=== PATIENT | male | born 1935 | race Caucasian/White ===

== ENCOUNTER → 2016-10-23 | Outpatient (CLI) | payer MEDICARE, OTHER ==
[~2016-10-23] MED LIST: ERYT.5%O EACH EYE; LASI20TA PO; LESC80TA PO; METO50TA PO; SULF1TAB47 PO; VITA400C58 OR; WARF2.5 PO
[2016-10-23 15:37] LABS: INTERNATIONAL NORMALIZED RATIO 2.5 RATIO; PROTHROMBIN TIME - PATIENT 29.1 SEC (9.8-11.6)
== END ==
LOC: PLAB 14:08
DX: I48.91 Unspecified atrial fibrillation (principal); Z79.01 Long term (current) use of anticoagulants
CPT/HCPCS: 36415; 85610

== ENCOUNTER → 2016-11-23 | Outpatient (CLI) | payer MEDICARE, OTHER ==
[2016-11-23 16:35] LABS: INTERNATIONAL NORMALIZED RATIO 1.6 RATIO; PROTHROMBIN TIME - PATIENT 18.1 SEC (9.8-11.6)
== END ==
LOC: PLAB 15:06
DX: I48.91 Unspecified atrial fibrillation (principal); Z79.01 Long term (current) use of anticoagulants
CPT/HCPCS: 36415; 85610

== ENCOUNTER → 2016-12-07 | Outpatient (CLI) | payer MEDICARE, OTHER ==
[2016-12-07 16:22] LABS: INTERNATIONAL NORMALIZED RATIO 1.5 RATIO; PROTHROMBIN TIME - PATIENT 16.4 SEC (9.8-11.6)
== END ==
LOC: PLAB 12:44
DX: I48.91 Unspecified atrial fibrillation (principal)
CPT/HCPCS: 36415; 85610

== ENCOUNTER → 2016-12-15 | Outpatient (CLI) | payer MEDICARE, OTHER ==
[2016-12-15 11:09] LABS: INTERNATIONAL NORMALIZED RATIO 2.1 RATIO; PROTHROMBIN TIME - PATIENT 23.4 SEC (9.8-11.6)
== END ==
LOC: PLAB 10:06
DX: I48.91 Unspecified atrial fibrillation (principal); Z79.01 Long term (current) use of anticoagulants
CPT/HCPCS: 36415; 85610

== ENCOUNTER → 2016-12-28 | Outpatient (CLI) | payer MEDICARE, OTHER ==
[2016-12-28 16:44] LABS: INTERNATIONAL NORMALIZED RATIO 3.4 RATIO; PROTHROMBIN TIME - PATIENT 39.4 SEC (9.8-11.6)
== END ==
LOC: PLAB 15:04
DX: I48.91 Unspecified atrial fibrillation (principal); Z79.01 Long term (current) use of anticoagulants
CPT/HCPCS: 36415; 85610

== ENCOUNTER → 2017-01-09 | Outpatient (CLI) | payer MEDICARE, OTHER ==
[2017-01-09 14:39] LABS: INTERNATIONAL NORMALIZED RATIO 2.6 RATIO; PROTHROMBIN TIME - PATIENT 30.4 SEC (9.8-11.6)
== END ==
LOC: PLAB 12:33
DX: I48.91 Unspecified atrial fibrillation (principal); Z79.01 Long term (current) use of anticoagulants
CPT/HCPCS: 36415; 85610

== ENCOUNTER → 2017-09-20 | Outpatient (CLI) | payer MEDICARE, OTHER ==
[2017-09-20 11:49] LABS: PROTHROMBIN TIME - PATIENT 79.3 SEC (9.8-11.6)
[2017-09-20 11:55] LABS: INTERNATIONAL NORMALIZED RATIO 7.9 RATIO
== END ==
LOC: PLAB 10:49
DX: I48.91 Unspecified atrial fibrillation (principal); Z79.01 Long term (current) use of anticoagulants
CPT/HCPCS: 36415; 85610

== ENCOUNTER → 2017-09-21 | Outpatient (CLI) | payer MEDICARE, OTHER ==
[2017-09-21 12:37] LABS: PROTHROMBIN TIME - PATIENT 78.8 SEC (9.8-11.6)
[2017-09-21 12:49] LABS: INTERNATIONAL NORMALIZED RATIO 7.9 RATIO
== END ==
LOC: PLAB 10:09
DX: I48.91 Unspecified atrial fibrillation (principal); Z79.01 Long term (current) use of anticoagulants
CPT/HCPCS: 36415; 85610

== ENCOUNTER → 2017-09-25 | Outpatient (CLI) | payer MEDICARE, OTHER ==
[2017-09-25 10:27] LABS: INTERNATIONAL NORMALIZED RATIO 1.3 RATIO; PROTHROMBIN TIME - PATIENT 12.7 SEC (9.8-11.6)
== END ==
LOC: PLAB 09:51
DX: I48.91 Unspecified atrial fibrillation (principal); Z79.01 Long term (current) use of anticoagulants
CPT/HCPCS: 36415; 85610

== ENCOUNTER → 2017-10-16 | Outpatient (CLI) | payer MEDICARE, OTHER ==
[2017-10-16 12:44] LABS: INTERNATIONAL NORMALIZED RATIO 3.9 RATIO; PROTHROMBIN TIME - PATIENT 38.8 SEC (9.8-11.6)
== END ==
LOC: PLAB 11:28
DX: I48.91 Unspecified atrial fibrillation (principal); Z79.01 Long term (current) use of anticoagulants
CPT/HCPCS: 36415; 85610

== ENCOUNTER → 2017-10-22 | Outpatient (CLI) | payer MEDICARE, OTHER ==
[2017-10-22 15:42] LABS: INTERNATIONAL NORMALIZED RATIO 1.4 RATIO; PROTHROMBIN TIME - PATIENT 14.3 SEC (9.8-11.6)
== END ==
LOC: PLAB 13:14
DX: I48.91 Unspecified atrial fibrillation (principal); Z79.01 Long term (current) use of anticoagulants
CPT/HCPCS: 36415; 85610

== ENCOUNTER → 2017-10-30 | Outpatient (CLI) | payer MEDICARE, OTHER ==
[2017-10-30 11:39] LABS: INTERNATIONAL NORMALIZED RATIO 3.3 RATIO; PROTHROMBIN TIME - PATIENT 33.2 SEC (9.8-11.6)
== END ==
LOC: PLAB 10:50
DX: I48.91 Unspecified atrial fibrillation (principal); Z79.01 Long term (current) use of anticoagulants
CPT/HCPCS: 36415; 85610

== ENCOUNTER 2017-11-15 10:27 | Emergency (ER) | payer MEDICARE, OTHER ==
[~2017-11-15] VITALS: Ht 170.2 cm; Wt 99.0 kg
[2017-11-15 10:28] VITALS: BP 107/65; PULSE 67; RESP 16; TEMP 98.4; O2SAT 96
[2017-11-15] MEDS ORDERED: BACL10TA PO (10:54)
[2017-11-15] MEDS ORDERED: WARF-23 PO (10:54)
[2017-11-15] MEDS ORDERED: WARF-18 PO (10:54)
[2017-11-15] MEDS ORDERED: FURO1TAB62 PO (10:54)
[2017-11-15] MEDS ORDERED: ASPI-147 PO (10:54)
--- NOTE | 2017-11-15 11:23 | RADRPT ---
EXAM DATE/TIME: 11/15/2017 11:14 [facility] COMPARISON: No previous studies available for comparison. INDICATIONS : Trauma. Fell 1 week ago. Laceration above left eye. RADIATION DOSE: 65.04 CTDIvol (mGy) MEDICAL HISTORY : Cardiovascular disease. Hypertension. SURGICAL HISTORY : None. ENCOUNTER: Initial ACUITY: 1 week PAIN SCALE: 0/10 LOCATION: cranial TECHNIQUE: Multiple contiguous axial images were obtained of the head. Using automated exposure control and adj ustment of the mA and/or kV according to patient size, radiation dose was kept as low as reasonably a chievable to obtain optimal diagnostic quality images. DICOM format image data is available electro nically for review and comparison. FINDINGS: CEREBRUM: The ventricles are normal for age. No evidence of midline shift, mass lesion, hemorrhage or acute in farction. No extra-axial fluid collections are seen. POSTERIOR FOSSA: The cerebellum and brainstem are intact. The 4th ventricle is midline. The cerebellopontine angle i s unremarkable. EXTRACRANIAL: The visualized portion of the orbits is intact. Mucosal thickening is noted involving the visualized portion of the left maxillary sinus. SKULL: The calvaria is intact. No evidence of skull fracture. CONCLUSION: No acute intracranial abnormality. Mucosal thickening involving the left maxillary sinus. Jai Durham MD on November 15, 2017 at 11:19 Board Certified Radiologist. This report was verified electronically.
--- NOTE | 2017-11-15 12:00 | RADRPT ---
EXAM DATE/TIME: 11/15/2017 11:23 [facility] COMPARISON: No previous studies available for comparison. INDICATIONS : Left hip pain post fall last week. Patient has large painful "lump" on lateral aspect of hip. MEDICAL HISTORY : Hypercholesterolemia. Hypertension SURGICAL HISTORY : cardioversion for A-fib. ENCOUNTER: Initial ACUITY: 1 week PAIN SCORE: 10/10 LOCATION: Left lateral hip FINDINGS: Examination of the left hip was performed with AP pelvis. The primary and secondary trabecular patte rn of the femoral neck is intact. The hip joint is of normal width without significant sclerosis or bony hypertrophy. The acetabulum is grossly intact. CONCLUSION: No acute fracture or dislocation. Jai Durham MD on November 15, 2017 at 11:56 Board Certified Radiologist. This report was verified electronically.
--- NOTE | 2017-11-15 12:07 | RADRPT ---
EXAM DATE/TIME: 11/15/2017 11:23 [facility] COMPARISON: No previous studies available for comparison. INDICATIONS : Left foot pain, bruising, post fall last week. MEDICAL HISTORY : Hypercholesterolemia. Hypertension SURGICAL HISTORY : Cardioversion for a-fib. ENCOUNTER: Initial ACUITY: 1 week PAIN SCORE: 9/10 LOCATION: Left foot FINDINGS: Three view examination of the left foot demonstrates no soft tissue swelling, dislocation, or fractur e. The tarsal bones appear intact. The interphalangeal and metatarsophalangeal joints are intact. The calcaneus is intact. Bony mineralization is normal. CONCLUSION: No evidence of recent bony injury. Dionicio Gruber MD on November 15, 2017 at 12:03 Board Certified Radiologist. This report was verified electronically.
--- NOTE | 2017-11-15 12:23 | PD ---
HPI Chief Complaint: Fall Time Seen by Provider: 10:40 Travel History International Travel<30 days: No Contact w/Intl Traveler<30days: No Traveled to known affect area: No History of Present Illness HPI This is a 82-year-old male here for evaluation of swelling and bruising to his left hip and left foot times one week. Patient reports approximately one week ago he had a mechanical fall in his bathroom falling onto his left side. There was no loss of consciousness. Patient is anticoagulated on Coumadin. The area became bruised and he has swelling to his left hip since the fall. At the insistence of his he came in for evaluation today. She reports he has mild pain at the site of swelling of the left hip. He is ambulatory and has been playing golf since the injury. He denies headache, visual changes, neck pain, chest pain, but is of breath, abdominal pain, paresthesia or weakness of the extremities. Symptom severity is mild. Aggravated by palpation of the area and relieved with rest. PFSH Past Medical History Hx Anticoagulant Therapy: Yes (COUMADIN) Heart Rhythm Problems: Yes (PAST A-FIB) Cardiovascular Problems: Yes (PT HAD CARDOVERSON FOR AFIB) High Cholesterol: Yes Diminished Hearing: Yes ("slightly hard of hearing.") Hypertension: Yes Neurologic: Yes (R TRIGEMINAL NEURALGIA) Immunizations Current: Yes Tetanus Vaccination: < 5 Years Influenza Vaccination: Yes Past Surgical History Genitourinary Surgery: Yes (removing kidney stone) Other Surgery: Yes (gamma knife x2 for trigeminal neuralgia) Social History Alcohol Use: Yes (few beers daily) Tobacco Use: No Substance Use: No Allergies-Medications (Allergen,Severity, Reaction): Coded Allergies: amiodarone (Verified Allergy, Intermediate, BLACK LUNGS, 11/15/17) Reported Meds & Prescriptions Reported Meds & Active Scripts Active Reported Ecotrin Low Strength (Aspirin) 81 Mg Tabdr 81 Mg PO DAILY Lasix (Furosemide) 20 Mg Tab 5 Mg PO BID Baclofen 10 Mg Tab 10 Mg PO DAILY Warfarin 2.5 Mg Tab 2.5 Mg PO SUNDAY Warfarin 5 Mg Tab 5 Mg PO DAILY Review of Systems Except as stated in HPI: all other systems reviewed are Neg Physical Exam Narrative GENERAL: Alert and well-appearing 82-year-old male SKIN: Warm and dry. HEAD: Normocephalic.1.5 CM healing laceration to the left forehead EYES: Pupils equal, round, reactive to light. EOMs intact. No injection or drainage. NECK: Supple, trachea midline. No line spine tenderness CARDIOVASCULAR: Regular rate and rhythm without murmurs, gallops, or rubs. No chest wall tenderness RESPIRATORY: Breath sounds equal bilaterally. No accessory muscle use. GASTROINTESTINAL: Abdomen soft, non-tender, nondistended. No rebound or guarding. MUSCULOSKELETAL: No cyanosis. Left lower extremity: Notable swelling and ecchymosis to the left lateral hip this is consistent with a hematoma. Ecchymosis over the entire dorsal aspect of the left foot. Patient is able to flex and externally rotate the hip. Maintains normal range of motion of the knee and ankle. 2+ distal pulses. No sensation. Brisk cap refill. BACK: Nontender cervical, thoracic, lumbar spine. Without obvious deformity. No CVA tenderness. Data Data Last Documented VS Vital Signs Date Time Temp Pulse Resp B/P (MAP) Pulse Ox O2 Delivery O2 Flow Rate FiO2 11/15/17 10:28 98.4 67 16 107/65 (79) [address] Brain W/O Iv Contrast(Rout) (11/15/17 ) Foot, Complete ([id number]) (11/15/17 ) Hip, Uni(4+Vws) W Ap Pelvis (11/15/17 ) MDM Medical Decision Making Medical Screen Exam Complete: Yes Emergency Medical Condition: Yes Differential Diagnosis Hip fracture, metatarsal fracture, hematoma, contusion, ICH Narrative Course This is an 82-year-old male here for evaluation at the insistence of his for fall he sustained approximately a week ago in his bathroom. He fell onto his left side. There was no loss of consciousness. He has what appears to be a hematoma to the left lateral hip. He is ambulatory without difficulty. The extremity is neurovascularly intact. He did sustain a small laceration to the left forehead. Patient is anticoagulated therefore CT of the head was obtained. CT of the brain: No intracranial abnormality X-ray left hip: No fracture X-ray left foot: No fracture All findings discussed with family. Treatment of hematoma discussed with patient and family. He was encouraged to follow up with his primary doctor. Patient and family verbalized understanding and agree to plan Diagnosis Primary Impression: Hematoma Additional Impressions: Contusion Qualified Codes: S80.12XA - Contusion of left lower leg, initial encounter Head injury Qualified Codes: S09.90XA - Unspecified injury of head, initial encounter Referrals: Primary Care Physician Additional Instructions: Apply warm compresses to the hematoma several times per day. Tylenol as needed for pain. Follow-up with her primary doctor for recheck. Return if he developed new or worsening symptoms such as fever, increasing pain , severe headache, repeated vomiting Disposition: 01 DISCHARGE HOME Condition: Stable Billie Gayle Nov 15, 2017 12:23
== END 2017-11-15 12:36 | disposition home or self-care (01) ==
LOC: PHED 10:27
DX: T14.8XXA Other injury of unspecified body region, initial encounter (principal); S80.12XA Contusion of left lower leg, initial encounter; S09.90XA Unspecified injury of head, initial encounter; I48.91 Unspecified atrial fibrillation; E78.00 Pure hypercholesterolemia, unspecified; I10 Essential (primary) hypertension; Z79.01 Long term (current) use of anticoagulants; Z88.8 Allergy status to other drugs, medicaments and biological substances; W18.30XA Fall on same level, unspecified, initial encounter; Y92.89 Other specified places as the place of occurrence of the external cause
CPT/HCPCS: 70450; 73503; 73630; 99284

== ENCOUNTER → 2017-11-19 | Outpatient (CLI) | payer MEDICARE, OTHER ==
[~2017-11-19] MED LIST changes: +ASPI-147 PO; +BACL10TA PO; -ERYT.5%O EACH EYE; +FURO1TAB62 PO; -LASI20TA PO; -LESC80TA PO; -METO50TA PO; -SULF1TAB47 PO; -VITA400C58 OR; +WARF-18 PO; +WARF-23 PO; -WARF2.5 PO
[2017-11-19 14:33] LABS: INTERNATIONAL NORMALIZED RATIO 2.1 RATIO; PROTHROMBIN TIME - PATIENT 20.9 SEC (9.8-11.6)
== END ==
LOC: PLAB 12:15
DX: I48.91 Unspecified atrial fibrillation (principal); Z79.01 Long term (current) use of anticoagulants
CPT/HCPCS: 36415; 85610

== ENCOUNTER → 2017-12-07 | Outpatient (CLI) | payer MEDICARE, OTHER ==
[2017-12-07 12:54] LABS: INTERNATIONAL NORMALIZED RATIO 4.2 RATIO; PROTHROMBIN TIME - PATIENT 41.7 SEC (9.8-11.6)
== END ==
LOC: PLAB 11:17
DX: I48.91 Unspecified atrial fibrillation (principal); Z79.01 Long term (current) use of anticoagulants
CPT/HCPCS: 36415; 85610

== ENCOUNTER → 2017-12-14 | Outpatient (CLI) | payer MEDICARE, OTHER ==
[2017-12-14 10:22] LABS: INTERNATIONAL NORMALIZED RATIO 2.2 RATIO; PROTHROMBIN TIME - PATIENT 22.1 SEC (9.8-11.6)
== END ==
LOC: PLAB 09:47
DX: I48.91 Unspecified atrial fibrillation (principal); Z79.01 Long term (current) use of anticoagulants
CPT/HCPCS: 36415; 85610

== ENCOUNTER → 2017-12-19 | Outpatient (CLI) | payer MEDICARE, OTHER ==
[2017-12-19 16:25] LABS: INTERNATIONAL NORMALIZED RATIO 2.3 RATIO; PROTHROMBIN TIME - PATIENT 23.4 SEC (9.8-11.6)
== END ==
LOC: PLAB 14:23
DX: I48.91 Unspecified atrial fibrillation (principal); Z79.01 Long term (current) use of anticoagulants
CPT/HCPCS: 85610

== ENCOUNTER → 2018-01-18 | Outpatient (CLI) | payer MEDICARE, OTHER ==
[2018-01-18 11:25] LABS: INTERNATIONAL NORMALIZED RATIO 2.6 RATIO; PROTHROMBIN TIME - PATIENT 26.6 SEC (9.8-11.6)
== END ==
LOC: PLAB 10:24
DX: I48.91 Unspecified atrial fibrillation (principal); Z79.01 Long term (current) use of anticoagulants
CPT/HCPCS: 36415; 85610

== ENCOUNTER 2018-08-25 09:38 | Inpatient (IN) ==
[2018-08-25] MEDS ORDERED: Azithromycin Inj 500 MG in Sodium Chlor 0.9% Inj 250 ML IV.SIG ONE ×2 (09:56→14:11)
--- NOTE | 2018-08-25 10:03 | ED ---
HPI General Chief Complaint: Shortness of Breath/Dyspnea Stated Complaint: SOB Time Seen by Provider: 08/25/18 09:44 Source: patient Mode of arrival: EMS Limitations: no limitations History of Present Illness MD Complaint: Reports shortness of breath Onset (ago): day(s) (4) Severity: severe Consistency/Duration: constant and progressively worsening Relieving factors: nothing Exacerbating factors: nothing Known history of: Reports COPD and other (AF) Associated symptoms: Reports other (chills); Denies fever and sputum production Treatment prior to arrival: Reports bronchodilator and other (Solu-Medrol and IV lidocaine (for elevated HR and run of VT)) Related Data Home oxygen amount: none Home Medications Medication Instructions Recorded Confirmed Unable to Obtain Home Meds 08/25/18 08/25/18 Allergies Allergy/AdvReac Type Severity Reaction Status Date / Time amiodarone Allergy Intermediate BLACK LUNGS Verified 11/15/17 10:35 Review of Systems ROS: all other systems reviewed are negative [facility] Medical History Medical History Atrial fibrillation (Chronic) COPD (chronic obstructive pulmonary disease) (Chronic) Hypertension (Chronic) Social History Social History Substance History: No History of Abuse Smoking Status: Former smoker How Often Do You Have a Drink Containing Alcohol: 2 to 3 times a week Recent Travel in [facility] within the Last 8 Weeks: No Recent Out of Country Travel within the Last 8 Weeks: No Exam Const General: cooperative, healthy appearing, comfortable, well developed and well groomed Orientation: alert, awake and oriented x3 HENMT Head: normal to inspection, normocephalic and atraumatic Eyes Alignment and Position: alignment normal Conjunctivae: conjunctivae normal Sclera: sclerae normal EOM: EOM intact bilaterally Neck Neck: normal visual inspection and full ROM Chest Chest: normal inspection of the chest Resp Effort & Inspection: normal respiratory effort and able to speak in complete sentences Auscultation: lung sounds not diminished, no wheezes and other (We are currently only able to auscultate anteriorly because of medical interventions happening simultaneously. No wheezing is heard. His lungs have good air movement.) Cardio Rate: tachycardic Rhythm: abnormal rhythm GI Inspection: normal to inspection Palpation: soft Back/Spine/Pelvis Cervical Spine: cervical ROM normal Thoracic/Lumbar Spine: thoraco-lumbar ROM normal Skin General: no rashes or lesions noted and turgor normal Neuro General: alert, awake, oriented x3, moves all extremities and CN's II-XI intact bilaterally Extrem General: normal to inspection and full ROM Psych Appearance: grossly normal Mental Status: mental status grossly normal Speech and Movement: speech and movement normal Mood: congruent mood Affect: normal affect Attitude: cooperative Thought Process: normal Thought Content: normal Judgment: judgment good Course Consultations Consultation #1: Dr. Miguel has requested that I transport the patient to [facility] for intensive care. Time: 11:01 Initial Documented Vital Signs Temperature 98.4 F 08/25/18 09:40 Pulse Rate 150 H 08/25/18 09:40 Respiratory Rate 28 H 08/25/18 09:40 Blood Pressure 187/101 H 08/25/18 09:40 Pulse Oximetry 92 L 08/25/18 09:40 Last Documented Vital Signs Temperature 98.4 F 08/25/18 09:40 Pulse Rate 107 H 08/25/18 10:29 Respiratory Rate 22 08/25/18 10:29 Blood Pressure 127/63 08/25/18 10:29 Pulse Oximetry 95 08/25/18 10:29 Critical Care Time Critical Care Time: Yes Total Critical Care Time: 45 Attestation: Time to perform other separately billable procedures was not included in the critical care time. My time did not include minutes spent treating any other patients simultaneously or on activities that did not directly contribute to the patient's treatment. The services I provided to this patient were to treat and/or prevent clinically significant deterioration due to respiratory distress and tachycardia I provided critical care services requiring my management, as noted below: Chart data review, documentation time, medication orders and management, vital sign assessments/reviewing monitor data, ordering and reviewing lab tests, ordering and interpreting/reviewing x-rays and diagnostic studies, care of the patient and discussion of the patient with the admitting physicians Medical Decision Making MDM Narrative Medical decision making narrative: This patient presents to us via [facility] with acute dyspnea. He states that he started feeling poorly approximately 4 days ago and that he has been getting progressively worse since that time. He states that he has been having chills. He has felt this way before when he had pneumonia. He denies productive cough. He was treated by [facility] with a DuoNeb and Solu-Medrol. He was also given IV lidocaine because of a run of V. tach. Shortly after arrival here, the patient was placed on BiPAP. Workup for dyspnea was initiated. After seeing the chest x-ray, IV Rocephin and IV Zithromax were ordered. Septic workup is in process. He meets sepsis and severe sepsis criteria. Fluid at 30 cc/kg has been ordered. Medical Screen Exam Complete: Yes Emergency Medical Condition: Yes Differential Diagnosis Differential Diagnosis: Differential diagnosis of dyspnea includes but is not limited to congestive heart failure, pneumonia, wheezing, pneumothorax, pulmonary embolism Medical Records Medical records reviewed: Yes I reviewed the patient's medical records. Medical history includes hypertension, hyperlipidemia, COPD and atrial fibrillation Lab Data Lab results reviewed: Yes I reviewed the patient's lab results. Result diagrams: 08/25/18 09:45 08/25/18 09:45 Lab Results 08/25/18 08/25/18 08/25/18 Range/Units 09:45 09:45 09:45 CBC w Diff Auto diff final WBC 18.6 H (4.0-11.0) th/mm3 RBC 4.47 L (4.50-5.90) mil/mm3 Hgb 14.0 (13.0-17.0) gm/dL Hct 42.4 (39.0-51.0) % MCV 94.7 (80.0-100.0) fL MCH 31.3 (27.0-34.0) pg MCHC 33.1 (32.0-36.0) % RDW 14.5 (11.6-17.2) % Plt Count 208 (150-450) th/mm3 MPV 8.9 (7.0-11.0) fL Neut % (Auto) 93.3 H (16.0-70.0) % Lymph % (Auto) 1.7 L (9.0-44.0) % Dare % (Auto) 1.8 (0.0-8.0) % Eos % (Auto) 0.8 (0.0-4.0) % Baso % (Auto) 2.4 H (0.0-2.0) % Neut # (Auto) 17.5 H (1.8-7.7) th/mm3 Lymph # (Auto) 0.3 L (1.0-4.8) th/mm3 Dare # (Auto) 0.3 (0.0-0.9) th/mm3 Eos # (Auto) 0.1 (0.0-0.4) th/mm3 Baso # (Auto) 0.4 H (0.0-0.2) th/mm3 WBC Differential . Differential Comment . PT (9.8-11.6) sec INR Ratio Puncture Site Patient Temperature O2 Saturation (90-100) % ABG pH (7.380-7.420) ABG pCO2 (38-42) mmHg ABG pO2 (61-120) mmHg ABG HCO3 (22-26) mmol/L ABG O2 Content (12.0-20.0) Vol % ABG Base Excess (-2-2) mmol/L ABG Methemoglobin (0-2) % Braxton Test Hemoglobin (12.0-16.0) G/DL Carboxyhemoglobin (0-4) % O2 Delivery Device Vent Setting Inspired O2 % Critical Value Sodium 134 L (136-145) meq/L Potassium 3.8 (3.5-5.1) meq/L Chloride 97 L (98-107) meq/L Carbon Dioxide 24.8 (21.0-32.0) meq/L Anion Gap 12 (5-15) meq/L BUN 40 H (7-18) mg/dL Creatinine 1.80 H (0.60-1.30) mg/dL Estimated GFR 36 L (>89) mL/min POC Glucose (68-110) mg/dl Random Glucose 214 H (74-106) mg/dL Lactic Acid 5.1 H* (0.4-2.0) mmol/L Calcium 9.4 (8.5-10.1) mg/dL Magnesium 2.3 (1.5-2.5) mg/dL Total Bilirubin 1.2 H (0.2-1.0) mg/dL AST 32 (15-37) U/L ALT 26 (12-78) U/L Alkaline Phosphatase 86 (45-117) U/L Total Protein 7.0 (6.4-8.2) g/dL Albumin 2.5 L (3.4-5.0) g/dL 08/25/18 08/25/18 08/25/18 Range/Units 09:45 09:58 10:00 CBC w Diff WBC (4.0-11.0) th/mm3 RBC (4.50-5.90) mil/mm3 Hgb (13.0-17.0) gm/dL Hct (39.0-51.0) % MCV (80.0-100.0) fL MCH (27.0-34.0) pg MCHC (32.0-36.0) % RDW (11.6-17.2) % Plt Count (150-450) th/mm3 MPV (7.0-11.0) fL Neut % (Auto) (16.0-70.0) % Lymph % (Auto) (9.0-44.0) % Dare % (Auto) (0.0-8.0) % Eos % (Auto) (0.0-4.0) % Baso % (Auto) (0.0-2.0) % Neut # (Auto) (1.8-7.7) th/mm3 Lymph # (Auto) (1.0-4.8) th/mm3 Dare # (Auto) (0.0-0.9) th/mm3 Eos # (Auto) (0.0-0.4) th/mm3 Baso # (Auto) (0.0-0.2) th/mm3 WBC Differential Differential Comment PT 12.7 H (9.8-11.6) sec INR 1.3 Ratio Puncture Site Right radial Patient Temperature 98.6 O2 Saturation 95 (90-100) % ABG pH 7.36 L (7.380-7.420) ABG pCO2 44 H (38-42) mmHg ABG pO2 94 (61-120) mmHg ABG HCO3 25 (22-26) mmol/L ABG O2 Content 18.5 (12.0-20.0) Vol % ABG Base Excess -0.2 (-2-2) mmol/L ABG Methemoglobin 1.3 (0-2) % Braxton Test Present Hemoglobin 13.9 (12.0-16.0) G/DL Carboxyhemoglobin 1.8 (0-4) % O2 Delivery Device Bipap Vent Setting Ipap 18/epap6 Inspired O2 65 % Critical Value No Sodium (136-145) meq/L Potassium (3.5-5.1) meq/L Chloride (98-107) meq/L Carbon Dioxide (21.0-32.0) meq/L Anion Gap (5-15) meq/L BUN (7-18) mg/dL Creatinine (0.60-1.30) mg/dL Estimated GFR (>89) mL/min POC Glucose 195 H (68-110) mg/dl Random Glucose (74-106) mg/dL Lactic Acid (0.4-2.0) mmol/L Calcium (8.5-10.1) mg/dL Magnesium (1.5-2.5) mg/dL Total Bilirubin (0.2-1.0) mg/dL AST (15-37) U/L ALT (12-78) U/L Alkaline Phosphatase (45-117) U/L Total Protein (6.4-8.2) g/dL Albumin (3.4-5.0) g/dL Imaging Data Attestation: I personally reviewed and interpreted this imaging study as follows : My impression: Infiltrate mainly in the right middle lobe Radiologist's impression: Chest X-Ray 08/25/18 09:44 CONCLUSION: Extensive bilateral infiltrates, right worse than left ECG Data EKG Prior to Arrival: No Attestation: I personally reviewed and interpreted this ECG as follows: (EKG shows atrial fibrillation with a rate of about 130. T wave changes.) Discharge Plan Discharge Disposition Patient Disposition: 30 Still Patient Discharge Details Diagnosis: Severe sepsis, Pneumonia Physicians Team ED Provider: Abbi Odell Primary Care Provider: UNKNOWN, Rxs /Orders / Referrals /Forms Prescriptions: No Action Unable to Obtain Home Meds RF: 0 Status ED Status: With Doctor
[2018-08-25 10:04] LABS: White Blood Count 18.6 th/mm3 (4.0-11.0)
[2018-08-25 10:05] LABS: Baso # (Auto) 0.4 th/mm3 (0.0-0.2); Baso % (Auto) 2.4 % (0.0-2.0); Eos # (Auto) 0.1 th/mm3 (0.0-0.4); Eos % (Auto) 0.8 % (0.0-4.0); Hematocrit 42.4 % (39.0-51.0); Lymph # (Auto) 0.3 th/mm3 (1.0-4.8); Lymph % (Auto) 1.7 % (9.0-44.0); Mean Corpuscular HGB Conc 33.1 % (32.0-36.0); Mean Corpuscular Hemoglobin 31.3 pg (27.0-34.0); Mean Corpuscular Volume 94.7 fL (80.0-100.0); Mean Platelet Volume 8.9 fL (7.0-11.0); Mono # (Auto) 0.3 th/mm3 (0.0-0.9); Mono % (Auto) 1.8 % (0.0-8.0); Neut # (Auto) 17.5 th/mm3 (1.8-7.7); Neut % (Auto) 93.3 % (16.0-70.0); Platelet Count 208 th/mm3 (150-450); Red Blood Count 4.47 mil/mm3 (4.50-5.90); Red Cell Distribution Width 14.5 % (11.6-17.2)
[2018-08-25 10:08] LABS: ABG Base Excess -0.2 mmol/L (-2-2); ABG PCO2 44 mmHg (38-42); ABG PO2 94 mmHg (61-120)
[2018-08-25 10:12] LABS: Chloride 97 meq/L (98-107); Potassium 3.8 meq/L (3.5-5.1); Sodium 134 meq/L (136-145)
[2018-08-25 10:15] LABS: Calcium 9.4 mg/dL (8.5-10.1)
[2018-08-25 10:16] LABS: Albumin 2.5 g/dL (3.4-5.0); Anion Gap 12 meq/L (5-15); Blood Urea Nitrogen 40 mg/dL (7-18); Carbon Dioxide 24.8 meq/L (21.0-32.0); Glucose,Random 214 mg/dL (74-106); Magnesium 2.3 mg/dL (1.5-2.5)
[2018-08-25 10:18] LABS: Alanine Aminotransferase 26 U/L (12-78)
[2018-08-25 10:19] LABS: Aspartate Aminotransferase 32 U/L (15-37); Glomerular Filtration Rate 36 mL/min (>89)
[2018-08-25 10:21] LABS: Alkaline Phosphatase 86 U/L (45-117)
--- NOTE | 2018-08-25 10:21 | XR ---
EXAM DATE: 08/25/2018 10:01 AM EST AGE/SEX: 83 years / Male INDICATIONS: Short of breath CLINICAL DATA: This is the patient's initial encounter. Patient reports that signs and symptoms have been present for 1 day and indicates a pain score of Nonresponsive. MEDICAL/SURGICAL HISTORY: . Cardiovascular disease. Hypertension, COPD None. COMPARISON: No prior exams available for comparison. FINDINGS: Diffuse interstitial infiltrate bilaterally with moderately confluent alveolar infiltrate in portions of the right lung. Likely small effusions. Heart size is borderline. CONCLUSION: Extensive bilateral infiltrates, right worse than left Electronically signed by: Ed Carter MD 08/25/2018 10:19 AM EST
[2018-08-25 10:34] LABS: INR 1.3 Ratio; Prothrombin Time 12.7 sec (9.8-11.6)
[2018-08-25] MEDS: Sod Chloride 0.9% Inj 1,000 ML IV.SIG SCH ×3 (10:56→12:05)
[2018-08-25] MEDS ORDERED: Bisacodyl 10 MG Supp RECTAL PRN (11:01)
[2018-08-25] MEDS: Sod Chloride 0.9% Inj 1,000 ML IV.CONT SCH (13:15)
[2018-08-25] MEDS ORDERED: Etomidate Inj 40 MG/20 ML Vial IV.PUSH ONE (13:28)
[2018-08-25] MEDS: Propofol 1000 mg/100 ml Inj 1,000 MG/100 ML BOTTLE IV.CONT PRN ×2 (14:00→19:16)
[2018-08-25] MEDS: fentaNYL 10 mcg/mL Premix Drip 2,500 MCG/250 ML BAG IV.SIG PRN (14:00)
[2018-08-25] MEDS ORDERED: Vancomycin Consult Pharmacy OTHER PRN (14:11)
--- NOTE | 2018-08-25 14:17 | P.PCN ---
Date of procedure: 08/25/18 Pre-op diagnosis: Acute respiratory failure Post-op diagnosis: same Procedure: DATE: 08/25/2018 PROCEDURE: Orotracheal intubation INDICATION: Pneumonia/respiratory failure acute DETAILS OF PROCEDURE The patient was placed in optimal position and preoxygenated with 100% FiO2 via bag valve mask. At the start oxygen saturation was 98 %. The patient was administered 20 mg etomidate IV and 50 mg rocuronium IV. I entered the oropharynx with a size 4 laryngoscope blade and obtained a grade 2 view of the airway. On single attempt a size 8.0 cuffed endotracheal tube was passed through the vocal cords. Correct tube location was confirmed with end tidal CO2 detector and by auscultating over bilateral lung joel. The endotracheal tube was secured with adhesive tape at a depth of 24 cm at the lips. The patient was connected to the ventilator. The patient tolerated the procedure well without any apparent complications. Oxygen saturations were maintained greater than 95% all times. STAT chest x-ray pending at time of dictation.
--- NOTE | 2018-08-25 14:18 | P.PCN ---
Date of procedure: 08/25/18 Pre-op diagnosis: Acute respiratory failure/poor IV access Post-op diagnosis: same Procedure: DATE: 08/25/2018 CENTRAL LINE PLACEMENT: Left internal jugular vein. Ultrasound-guided INDICATION: Central venous access CONSENT Informed consent for procedure was obtained from competent patient prior to intubation. DESCRIPTION OF THE PROCEDURE The patient was placed in supine position. The skin was cleansed with Chloraprep. Additional barrier precautions included large sterile drape, sterile gloves, sterile gown, face mask, and hat. 1 % lidocaine was used for local anesthesia. Under direct ultrasound guidance and on initial attempt, the vein was accessed with an introducer needle. The guide wire was advanced and the tract was dilated. Using Seldinger technique a 7 Turkish 20 cm antimicrobial coated triple-lumen catheter was advanced to a depth of 20 centimeters. The guide wire was removed. All ports had good return of dark venous blood and flushed easily with saline. The central line was secured with 2.0 silk. A sterile dressing with antibiotic disc was applied. StatLock did not adhere to skin ESTIMATED BLOOD LOSS: Minimal COMPLICATIONS: No apparent complications. STAT chest x-ray pending at time of dictation
--- NOTE | 2018-08-25 14:27 | P.HPCC ---
History of Present Illness Service: Critical care medicine Primary Care Physician: UNKNOWN Chief Complaint: Shortness of breath History of Present Illness: This is an 83-year-old male. Date of admission 08/25/2018. Past medical includes atrial fibrillation with history of cardioversion, chronic apixaban use, hypertension, hyperlipidemia, trigeminal neuralgia/hard of hearing : Bilateral hearing aids. For the past 4 days, patient been increasing short of breath increased malaise. Denies any sick contacts or recent travels. Unknown influenza status. Patient is to [facility] with worsening shortness of breath. Complains of pleuritic and musculoskeletal chest pain. Patient also has a prior history of tobacco abuse times 50 years quit 15 years ago. Patient called EMS for evaluation due to acute shortness of breath. Upon arrival, patient was noted to be in a rapid heart rate in the 150s. Patient was given acute bronchodilator therapy and started on a lidocaine drip for possible V. tach. Patient was transported to [facility] for further evaluation treatment. Upon arrival, patient was noted to be in A. fib with RVR. Chest x-ray revealed bilateral infiltrates right greater than left. Patient was placed on BiPAP therapy with some improvement. Patient received ceftriaxone and azithromycin. 3 L normal saline. Patient remained somewhat hypotensive. Patient a lactate of 5.1. Troponin 0 0.27. Patient was transported to [facility]. On arrival, patient increasingly short of breath. Required intubation with central line placement and arterial line placement. - Diagnosis (1) Acute respiratory failure with hypoxia and hypercapnia (2) Hyponatremia (3) Lactic acidosis (4) Atrial fibrillation with rapid ventricular response (5) Acute kidney injury (6) Chronic steroid use (7) Hypertension (8) Hyperlipidemia (9) Hard of hearing (10) Trigeminal neuralgia (11) Chronic anticoagulation (12) Leukocytosis (13) Elevated troponin (14) Hypoalbuminemia Inpatient Certification: I certify that the inpatient services were ordered in accordance with Medicare regulations governing the order. This includes certification that hospital inpatient services are reasonable and necessary and in the case of services not specified as inpatient-only under 42 CFR 419.22(n), that they are appropriately provided as inpatient services in accordance to with the 2-midnight benchmark under 43 CFR 412.3(e) Estimated Total Length of Stay (Days): 5 Plans for Post Hospital Care: Not yet determined Review of Systems unobtainable due to endotracheal tube PMFSH - History History Provided By: Patient - Medical History Medical History: Medical History (Last Updated 08/25/18 @ 14:25 by Ford Miguel MD) Hard of hearing Hyperlipidemia Atrial fibrillation COPD (chronic obstructive pulmonary disease) Hypertension - Surgical History Surgical History: Surgical History (Last Updated 08/25/18 @ 14:26 by Ford Miguel MD) Status post gamma knife treatment (Acute) History of lithotripsy Hx of total knee arthroplasty - Family History Family History: Family History (Last Updated 08/25/18 @ 14:26 by Ford Miguel MD) Other No pertinent family history - Social History I have reviewed the patient's Social History: Yes - Tobacco History Second Hand Smoke Exposure: No Tobacco Use In Past 30 Days: No Smoking Status: Former smoker Tobacco Type: Cigarettes Years Smoked: 50 - Alcohol History How Often Do You Have a Drink Containing Alcohol: 2 to 3 times a week - Substance Use History Substance History: No History of Abuse - Travel History Recent Travel in the [place] Within the Last 8 Weeks: No Recent Travel Out of the Country Within the Last 8 Weeks: No - Immunization History Tetanus Immunization: Unsure Hx Influenza Vaccine This Season: Unable to Assess Medications and Allergies Active Medications: Active Medications Acetaminophen (Tylenol) 650 mg PO Q6H PRN PRN Reason: PAIN 1-10 AND/OR FEVER >101F Al Hydroxide/Mg Hydroxide (Milk Of Magnjuwan Liq) 30 ml PO Q12H PRN PRN Reason: Mild Constipation Albuterol (Albuterol Neb (Prn)) 2.5 mg NEB Q2HR NEB PRN PRN Reason: SHORTNESS OF BREATH/WHEEZING Albuterol (Duoneb Neb (Cherry)) 1 ampul NEB Q4HR NEB CHERRY Last Admin: 08/25/18 11:28 Dose: 1 ampul Apixaban (Eliquis) 5 mg PO BID [facility] Artificial Tears (Tears Naturale Opth Drops) 1 drop EACH EYE Q8H [facility] Bisacodyl (Dulcolax Supp) 10 mg RECTAL DAILY PRN PRN Reason: SEVERE CONSITIPATION Chlorhexidine Gluconate (Chlorhexidine 2% Cloth) 3 pack TOPICAL DAILY@0400 [facility] Stop: 08/31/18 03:59 Chlorhexidine Gluconate (Chlorhexidine 2% Cloth) 3 pack TOPICAL DAILY@0400 PRN PRN Reason: Extra cloth needed Stop: 08/31/18 03:59 Chlorhexidine Gluconate (Peridex 0.12% Oral Kit) 15 ml OROPHARYNG BID@0800, 2000 [facility] Fluticasone/Vilanterol (Breo Ellipta 200/25 Mcg Inh) puff INH DAILY [facility] Sodium Chloride (Ns Inj) 1,000 mls @ 84 mls/hr IV.CONT .[id number] [facility] Fentanyl (Fentanyl 10 Mcg/Ml Premix Drip) 2,500 mcg in 250 mls @ 5 mls/hr IV.SIG TITRATE PRN; Protocol PRN Reason: Per Protocol Propofol (Diprivan 1000 Mg/100 Ml Inj) 1,000 mg in 100 mls @ 2.88 mls/hr IV.CONT TITRATE PRN; Protocol PRN Reason: Per Protocol Phenylephrine HCl 160 mg/ (Sodium Chloride) 500 mls @ 7.5 mls/hr IV.CONT TITRATE PRN; Protocol PRN Reason: See protol Azithromycin 500 mg/ Sodium (Chloride) 250 mls @ 250 mls/hr IV.SIG ONCE ONE Stop: 08/25/18 15:10 Piperacillin/Tazobactam/Dextrose (Zosyn 3.375 Gm Premix) 50 mls @ 100 mls/hr IV.SIG Q6H [facility] Lactulose (Lactulose Liq) 30 ml PO DAILY PRN PRN Reason: SEVERE CONSITIPATION Methylprednisolone Sodium Succinate (Solumedrol Inj) 40 mg IV.PUSH Q8HR [facility] Metoprolol Tartrate (Lopressor) 25 mg PO BID [facility] Miscellaneous Medication () 1 each OROPHARYNG 0000,0400,1200,1600 [facility] Ondansetron HCl (Zofran Inj) 4 mg IV.PUSH Q6H PRN PRN Reason: NAUSEA OR VOMITING Pantoprazole Sodium (Protonix Inj) 40 mg IV.PUSH DAILY [facility] Pharmacy Profile Note (Vancomycin Consult Pharmacy) 1 each OTHER UNSCH PRN PRN Reason: Pharmacy to dose Senna/Docusate Sodium (Marisa-Colace) 1 tab PO BID [facility] Sennosides (Senokot) 17.2 mg PO Q12H PRN PRN Reason: Moderate Constipation Sodium Chloride (Ns Flush) 2 ml IV.FLUSH BID [facility] Sodium Chloride (Ns Flush) 2 ml IV.FLUSH PRN PRN PRN Reason: FLUSH AFTER USING IV ACCESS Sodium Chloride (Ns Flush) 0 ml IV.FLUSH DAILY [facility] Terbutaline Sulfate (Brethine Inj) 1 mg SQ UNSCH PRN PRN Reason: For Extravasation Allergies Allergy/AdvReac Type Severity Reaction Status Date / Time amiodarone Allergy Intermediate BLACK LUNGS Verified 11/15/17 10:35 Home Medications Medication Instructions Recorded Confirmed Type apixaban [Eliquis] 5 mg PO BID 08/25/18 08/25/18 History fluticasone-vilanterol [Breo 1 inh INHALATION DAILY 08/25/18 08/25/18 History Ellipta] metoprolol tartrate 12.5 mg PO DAILY 08/25/18 08/25/18 History prednisone 2.5 mg PO Q OTHER DAY 08/25/18 08/25/18 History prednisone 5 mg PO Q OTHER DAY 08/25/18 08/25/18 History Results - Labs CBC & Chem 7: 08/25/18 09:45 08/25/18 09:45 Labs: Short CBC 08/25/18 Range/Units 09:45 WBC 18.6 H (4.0-11.0) th/mm3 Hgb 14.0 (13.0-17.0) gm/dL Hct 42.4 (39.0-51.0) % Plt Count 208 (150-450) th/mm3 BMP 08/25/18 09:45 Sodium 134 L Potassium 3.8 Chloride 97 L Carbon Dioxide 24.8 BUN 40 H Creatinine 1.80 H Calcium 9.4 Cardiac Enzymes 08/25/18 08/25/18 Range/Units 11:20 11:20 Total Creatine Kinase 189 (39-308) U/L Troponin I 0.27 H (0.02-0.05) ng/mL Liver Function 08/25/18 Range/Units 09:45 Total Bilirubin 1.2 H (0.2-1.0) mg/dL AST 32 (15-37) U/L ALT 26 (12-78) U/L Alkaline Phosphatase 86 (45-117) U/L Albumin 2.5 L (3.4-5.0) g/dL - Imaging Impressions Chest X-Ray 08/25/18 09:44 CONCLUSION: Extensive bilateral infiltrates, right worse than left Exam Vital signs: Vital Signs 08/25/18 09:40 08/25/18 09:44 08/25/18 09:50 Temperature 98.4 F Pulse Rate 150 H 125 H Respiratory Rate 28 H 28 H Blood Pressure 187/101 H 136/88 Pulse Oximetry 94 L 95 95 08/25/18 10:29 08/25/18 11:25 08/25/18 11:33 Temperature Pulse Rate 107 H 108 H 95 H Respiratory Rate 22 34 H 34 H Blood Pressure 127/63 110/69 Pulse Oximetry 95 96 08/25/18 11:50 08/25/18 12:47 08/25/18 12:50 Temperature Pulse Rate 101 H Respiratory Rate 32 H Blood Pressure 106/69 Pulse Oximetry 96 96 97 08/25/18 13:51 Temperature Pulse Rate Respiratory Rate 16 Blood Pressure Pulse Oximetry 98 Intake & Output 08/24/18 08/25/18 08/25/18 18:59 06:59 18:59 Intake Total 2350 / 2350 Balance 2350 / 2350 Weight 96 kg Intake: IV 2350 / 2350 Azithromycin Inj 500 MG In NS 250 / 250 Inj 250 ML @ 250 mls/hr IV.SIG ONCE ONE Rx#:[id number] NS Inj 1,000 ML @ 3000 mls/hr 2000 / 2000 IV.SIG Q20M CHERRY Rx#:[id number] Rocephin Inj 2,000 MG In NS Inj 100 / 100 100 ML @ 200 mls/hr IV.SIG ONCE ONE Rx#:[id number] - Constitutional mild distress - Routine HEENT Exam Head: Present: normocephalic, atraumatic Eye: Present: EOMI, PERRL, normal accommodation. Absent: cataracts ENT: Present: mucous membranes moist - Routine Neck Exam Present: supple, full ROM. Absent: JVD, carotid bruit, thyromegaly - Routine Chest/Breast/Axilla Exam Chest wall: Absent: tenderness Breast: Absent: tenderness Axillae: Absent: lymphadenopathy - Routine Respiratory Exam Present: accessory muscle use, rhonchi, wheezes, distant breath sounds, diminished air movement - Routine Cardiovascular Exam Present: S1, S2, tachycardia, irregularly irregular. Absent: murmur - Routine Abdominal Exam Present: soft, normoactive bowel sounds - Routine Extremities Exam Absent: cyanosis, clubbing, edema Comments: Chronic venous stasis - Routine Neurological Exam Present: alert, oriented X3, CN II-XII intact. Absent: sensory deficit, motor deficit Septic Shock Reassessment Septic shock perfusion: reassessment completed Caprini VTE Risk Assessment Caprini VTE Risk Assessment: Moderate/High Risk (score >= 2) Caprini Risk Assessment Model: Point Value = 1 Point Value = 2 Point Value = 3 Point Value = 5 Age 41-60 Minor surgery BMI > 25 kg/m2 Swollen legs Varicose veins or History of unexplained or recurrent spontaneous Oral contraceptives or hormone replacement Sepsis (< 1 month) Serious lung disease, including pneumonia (< 1 month) Abnormal pulmonary function Acute myocardial infarction Congestive heart failure (< 1 month) History of inflammatory bowel disease Medical patient at bed rest Age 61-74 Arthroscopic surgery Major open surgery (> 45 min) Laparoscopic surgery (> 45 min) Malignancy Confined to bed (> 72 hours) Immobilizing plaster cast Central venous access Age >= 75 History of VTE Family history of VTE Factor V Leiden Prothrombin [id number] Lupus anticoagulant Anticardiolipin antibodies Elevated serum homocysteine Heparin-induced thrombocytopenia Other congenital or acquired thrombophilia Stroke (< 1 month) Elective arthroplasty Hip, pelvis, or leg fracture Acute spinal cord injury (< 1 month) Prophylaxis Regimen: Total Risk Factor Score Risk Level Prophylaxis Regimen 0-1 Low Early ambulation 2 Moderate Order ONE of the following: *Sequential Compression Device (SCD) *Heparin 5000 units SQ BID 3-4 Higher Order ONE of the following medications: *Heparin 5000 units SQ TID *Enoxaparin/Lovenox 40 mg SQ daily (WT < 150 kg, CrCl > 30 mL/min) *Enoxaparin/Lovenox 30 mg SQ daily (WT < 150 kg, CrCl > 10-29 mL/min) *Enoxaparin/Lovenox 30 mg SQ BID (WT < 150 kg, CrCl > 30 mL/min) AND/OR *Sequential Compression Device (SCD) 5 or more Highest Order ONE of the following medications: *Heparin 5000 units SQ TID (Preferred with Epidurals) *Enoxaparin/Lovenox 40 mg SQ daily (WT < 150 kg, CrCl > 30 mL/min) *Enoxaparin/Lovenox 30 mg SQ daily (WT < 150 kg, CrCl > 10-29 mL/min) *Enoxaparin/Lovenox 30 mg SQ BID (WT < 150 kg, CrCl > 30 mL/min) AND *Sequential Compression Device (SCD) Assessment and Plan - Problem List (1) Acute respiratory failure with hypoxia and hypercapnia Code(s): J96.01 - Acute respiratory failure with hypoxia; J96.02 - Acute respiratory failure with hypercapnia Status: Acute (2) Hyponatremia Code(s): E87.1 - Hypo-osmolality and hyponatremia Status: Acute (3) Lactic acidosis Code(s): E87.2 - Acidosis Status: Acute (4) Atrial fibrillation with rapid ventricular response Code(s): I48.91 - Unspecified atrial fibrillation Status: Acute (5) Acute kidney injury Code(s): N17.9 - Acute kidney failure, unspecified Status: Acute (6) Chronic steroid use Status: Chronic (7) Hypertension Code(s): I10 - Essential (primary) hypertension Status: Chronic (8) Hyperlipidemia Code(s): E78.5 - Hyperlipidemia, unspecified Status: Chronic (9) Hard of hearing Code(s): H91.90 - Unspecified hearing loss, unspecified ear Status: Chronic (10) Trigeminal neuralgia Code(s): G50.0 - Trigeminal neuralgia Status: Chronic (11) Chronic anticoagulation Code(s): Z79.01 - care home (current) use of anticoagulants Status: Chronic (12) Leukocytosis Code(s): D72.829 - Elevated white blood cell count, unspecified Status: Acute (13) Elevated troponin Code(s): R74.8 - Abnormal levels of other serum enzymes Status: Acute (14) Hypoalbuminemia Code(s): E88.09 - Other disorders of plasma-protein metabolism, not elsewhere classified Status: Acute - Assessment and Plan Plan: Neuro/Psych: Hard of hearing Patient is currently on propofol/fentanyl drips for sedation/analgesia while intubated Goal of RA SS -2 Daily sedation vacation Acetaminophen 650 mg by tube every 6 hours as needed fever CV: Atrial fibrillation with rapid ventricular response Elevated troponin History of essential hypertension Hyperlipidemia Lactic acidosis Currently on status post 3 L normal saline Serial troponin until downward trend Follow-up on 2D echocardiogram Lactic acid's until cleared Metoprolol tartrate 20 mg twice daily/hold if heart rate less than 65, systolic blood pressure less than 110 or vasopressors. At home on metoprolol tartrate 12.5 mg at home daily Resp: Acute respiratory failure secondary to community acquired pneumonia History of COPD [facility] [address]/1.11/17/79 Ventilator bundle Albuterol/ipratropium aerosols every 4 hours with albuterol aerosols every 2 hours as needed dyspnea Add fluticasone/Vilanterol 200/25 1 inhalation daily Follow postintubation chest x-ray and ABG Continue use steroids but switch to methylprednisolone succinate 40 mg every 8 hours Head of bed at 30 degrees GI: Hypoalbuminemia Elevated total bilirubin NG tube placement Start on tube feeding Glucerna 1.5 at 55 cc an hour goal Pantoprazole for GI prophylaxis Docusate sodium/senna 1 tablet twice daily for bowel regimen : Chavez catheter for accurate I's and O's in a critical patient Endo: Acute hyperglycemia Chronic steroid use Sliding scale insulin aspart insulin to maintain euglycemia/moderate regimen Every 6 hours Check TSH On steroids as above see orders Renal: Elevated creatinine question acute kidney injury Check urine eosinophils and electrolytes Check renal ultrasound Avoid nephrotoxic medication Monitor urine output Accurate I's and O's Heme: Leukocytosis Monitor CBC daily. Follow trends per No indication for transfusion of blood products at this time ID: S\\community acquired pneumonia Received rote ceftriaxone and azithromycin in ED Currently on vancomycin/piperacillin/tazobactam and azithromycin Blood cultures x2, sputum, UA, urine Legionella pneumococcal antigens influenza a and B all pending MSK: Elevated BMI PT evaluate and treat Weight loss encouraged FEN: Hyponatremia Replace electrolytes as clinically indicated Access -Utilize left IJ CVL day 1 -Utilize right femoral arterial line day #1 Prophylaxis -GI -pantoprazole -DVT -SCD/apixaban provides pharmacological prophylaxis Critical care time 35 minutes not including procedures (7) Hypertension Qualifiers: Hypertension type: essential hypertension Qualified Code(s): I10 - Essential (primary) hypertension (8) Hyperlipidemia Qualifiers: Hyperlipidemia type: unspecified Qualified Code(s): E78.5 - Hyperlipidemia, unspecified (9) Hard of hearing Qualifiers: Hearing loss type: unspecified Laterality: bilateral Qualified Code(s): H91.93 - Unspecified hearing loss, bilateral (12) Leukocytosis Qualifiers: Leukocytosis type: unspecified Qualified Code(s): D72.829 - Elevated white blood cell count, unspecified
--- NOTE | 2018-08-25 14:43 | XR ---
EXAM DATE: 08/25/2018 2:38 PM EST AGE/SEX: 83 years / Male INDICATIONS: Central line placement. CLINICAL DATA: This is the patient's initial encounter. Patient reports that signs and symptoms have been present for 1 day and indicates a pain score of Nonresponsive. MEDICAL/SURGICAL HISTORY: . Cardiovascular disease. Hypertension, COPD None. . COMPARISON: [facility], CHEST 1V SINGLE AP, 08/25/2018. . FINDINGS: Left internal jugular central line has its tip in the superior vena cava. There is no pneumothorax. T he endotracheal tube has its tip 1 cm above the carin. The nasogastric tube has its tip below diaphr agm. Severe diffuse infiltrate is noted within the right lung and within left lung base consistent wi th probable bilateral pneumonia which is much worse on the right than the left. The heart remains enl arged. CONCLUSION: 1. Severe diffuse infiltrate is noted within the right lung and within left lung base consistent wit h probable bilateral pneumonia which is much worse on the right than the left. 2. Stable cardiomegaly. 3. Left internal jugular central line has its tip in superior vena cava. No pneumothorax is noted. Electronically signed by: Jai Durham MD 08/25/2018 2:42 PM EST
--- NOTE | 2018-08-25 14:59 | P.PCN ---
Date of procedure: 08/25/18 Pre-op diagnosis: Hemodynamic instability Post-op diagnosis: same Procedure: DATE: 08/25/2018 PROCEDURE: Right femoral arterial catheter placement INDICATION: Hemodynamic access DETAILS OF PROCEDURE The patient was placed in supine position. The skin was cleansed with Chloraprep. Additional barrier precautions included large sterile drape, sterile gloves, sterile gown, face mask, and hat. 1% lidocaine was used for local anesthesia. Under direct ultrasound guidance and on the initial attempt, the artery was accessed with an introducer needle. The guide wire was advanced. Using Seldinger technique 20 gauge arterial catheter was placed. The guide wire was removed. The catheter was connected to a transducer line and flushed with saline. The video monitor displayed normal arterial wave forms. The catheter was secured with 2-0 silk. A sterile dressing with antibiotic disc was applied. ESTIMATED BLOOD LOSS: minimal COMPLICATIONS: None
[2018-08-25] MEDS ORDERED: Phenylephrine Inj 160 MG in Sodium Chlor 0.9% Inj 484 ML IV.CONT PRN (15:00)
[2018-08-25] MEDS ORDERED: Dextrose 50% in Water 50 ML Vial IV.PUSH PRN (15:09)
[2018-08-25 15:11] LABS: ABG Base Excess -3.2 mmol/L (-2-2); ABG PCO2 42 mmHg (38-42); ABG PO2 96 mmHg (61-120)
[2018-08-25] MEDS: Piperacil/Tazo 3.375 GM Premix 50 ML IV.SIG SCH ×2 (15:26→22:00)
[2018-08-25] MEDS: Oral Hygiene Kit OROPHARYNG SCH (15:28)
[2018-08-25] MEDS ORDERED: Vancomycin Inj 1,500 MG in Sodium Chlor 0.9% Inj 500 ML IV.SIG ONE (16:00)
--- NOTE | 2018-08-25 16:25 | ECG ---
Date Performed: 08/25/2018 Time Performed: 09:45:29 PTAGE: 83 years EKG: ATRIAL FIBRILLATION WITH RAPID VENTRICULAR RESPONSE WITH ABERRANT CONDUCTION OR VENTRICULAR PREMATURE COMPLEXES INCOMPLETE RIGHT BUNDLE BRANCH BLOCK ABNORMAL RHYTHM ECG NO PREVIOUS TRACING DOCTOR: Turner Bustillo Interpretating Date/Time 08/25/2018 16:25:01
[2018-08-25] MEDS: Multivitamin Inj 10 ML, Thiamine Inj 100 MG, Folic Acid Inj 1 MG in Sodium Chlor 0.9% I... IV.SIG SCH (17:35)
[2018-08-25] MEDS: Insulin NovoLOG Aspart Correctional Sugar Inj SQ SCH (18:22)
[2018-08-25] MEDS: Artificial Tears Opth Drops 15 ML Bottle EACH EYE SCH ×2 (18:23→22:00)
[2018-08-25 18:27] LABS: Amorphous Sediment,Urine Occasional /hpf; Bilirubin,Urine Negative (Negative); Clarity,Urine Cloudy (Clear); Color,Urine Amber (Yellw/Straw); Glucose,Urine (UA) Negative (Negative); Hyaline Casts,Urine 1 /lpf (0-3); Leukocyte Esterase,Urine Negative (Negative); Mucus,Urine Few /lpf (Occasional); Nitrite,Urine Negative (Negative); Specific Gravity,Urine 1.029 (1.002-1.035); Squamous Epithelial Cell,Urine 1 /hpf (0-5)
[2018-08-25 18:30] LABS: Sodium,Urine Random 5 meq/L
[2018-08-25 18:31] LABS: Creatinine,Urine Random 177 mg/dL (27-300)
--- NOTE | 2018-08-25 21:51 | US ---
EXAM DATE: 08/25/2018 9:14 PM EST AGE/SEX: 83 years / Male INDICATIONS: Increased lab values. CLINICAL DATA: This is the patient's initial encounter. Patient reports that signs and symptoms have been present for 1 day and indicates a pain score of 0/10. MEDICAL/SURGICAL HISTORY: Chronic obstructive pulmonary disease. Hypertension. Atrial fibrilla tion. Hyperlipidemia. . Lithotripsy. Knee surgery. Gamma knife treatment. COMPARISON: No prior exams available for comparison. MEASUREMENTS: Right Kidney:__11.6 x 6.5 x 5.8 cm Left Kidney:__11.7 x 5.2 x 6.0 cm FINDINGS: Right Kidney: Normal renal cortical thickness. No evidence of mass or hydronephrosis. Simple cyst mid pole measuring 2.2 x 2.3 cm. Left Kidney: Normal renal cortical thickness. No evidence of hydronephrosis. There is a dominant cyst with low level homogeneous internal echoes, through-transmission, and no increased flow by color Dop pler located in the midpole measuring 4.0 x 3.3 cm. There is also a simple cyst in the lower pole, an echoic with good through transmission, measuring 4.8 x 5.2 cm. Bladder: Chavez catheter is present. Bladder decompressed. Other: None. CONCLUSION: 1. No evidence of hydronephrosis. 2. Bilateral renal cysts, mostly simple, with one cyst demonstrating homogeneous low level echoes, l ocated in the midpole the left kidney and measuring 4 cm. Electronically signed by: Dionicio Gruber MD 08/25/2018 9:50 PM EST
--- NOTE | 2018-08-25 21:52 | US ---
EXAM DATE: 08/25/2018 9:09 PM EST AGE/SEX: 83 years / Male INDICATIONS: Bilateral leg edema. CLINICAL DATA: This is the patient's initial encounter. Patient reports that signs and symptoms have been present for 1 day and indicates a pain score of Nonresponsive. MEDICAL/SURGICAL HISTORY: Chronic obstructive pulmonary disease. Hypertension. Atrial fibrilla tion. Hyperlipidemia. . Lithotripsy. Knee surgery. Gamma knife treatment. COMPARISON: No prior exams available for comparison. TECHNIQUE: Venous ultrasound of both lower extremities was performed from the inguinal ligament to t he proximal calf. Real-time, color Doppler and spectral tracing, compression and augmentation techni ques were used. FINDINGS: Right Leg: Normal compression of the deep venous system from the inguinal region to the proximal phuc f. No echogenic clot is seen. Normal response of the venous system to augmentation and respiration. Left Leg: Normal compression of the deep venous system from the inguinal region to the proximal calf . No echogenic clot is seen. Normal response of the venous system to augmentation and respiration. Other: None. CONCLUSION: 1. The study is negative for bilateral lower extremity deep venous thrombosis. Electronically signed by: Dionicio Gruber MD 08/25/2018 9:50 PM EST
[2018-08-25] MEDS: Metoprolol Tartrate 25 MG Tablet PO SCH (21:56)
[2018-08-25] MEDS: Senna/Docusate Sodium 8.6/50 MG Tablet PO SCH (21:59)
[2018-08-25] MEDS: Chlorhexidine 0.12% Oral Kit 15 ML UDC OROPHARYNG SCH (21:59)
[2018-08-25] MEDS: MethylPREDNISolone Sod Succinate Inj 40 MG/ML Vial IV.PUSH SCH (22:00)
[2018-08-26] MEDS: Insulin NovoLOG Aspart Correctional Sugar Inj SQ SCH ×4 (01:00→17:37)
[2018-08-26 01:41] LABS: ABG Base Excess -2.1 mmol/L (-2-2); ABG PCO2 37 mmHg (38-42); ABG PO2 309 mmHg (61-120)
[2018-08-26] MEDS: Propofol 1000 mg/100 ml Inj 1,000 MG/100 ML BOTTLE IV.CONT PRN ×4 (02:16→21:50)
[2018-08-26] MEDS: Sod Chloride 0.9% Inj 1,000 ML IV.CONT SCH ×3 (02:17→22:33)
[2018-08-26] MEDS: Oral Hygiene Kit OROPHARYNG SCH ×4 (02:17→15:58)
[2018-08-26] MEDS: Piperacil/Tazo 3.375 GM Premix 50 ML IV.SIG SCH ×4 (02:17→20:49)
[2018-08-26] MEDS ORDERED: Chlorhexidine Gluconate 2% 1 Pack (2 Cloths) TOPICAL PRN (04:00)
[2018-08-26 04:06] LABS: Baso % (Auto) 0.2 % (0.0-2.0); Eos % (Auto) 0.1 % (0.0-4.0); Hematocrit 35.9 % (39.0-51.0); Hemoglobin 12.1 gm/dL (13.0-17.0); Lymph # (Auto) 0.4 th/mm3 (1.0-4.8); Lymph % (Auto) 2.1 % (9.0-44.0); Mean Corpuscular HGB Conc 33.7 % (32.0-36.0); Mean Corpuscular Hemoglobin 32.1 pg (27.0-34.0); Mean Corpuscular Volume 95.5 fL (80.0-100.0); Mean Platelet Volume 8.9 fL (7.0-11.0); Mono # (Auto) 0.7 th/mm3 (0.0-0.9); Mono % (Auto) 3.7 % (0.0-8.0); Neut % (Auto) 93.9 % (16.0-70.0); Platelet Count 192 th/mm3 (150-450); Red Blood Count 3.76 mil/mm3 (4.50-5.90); White Blood Count 20.2 th/mm3 (4.0-11.0)
[2018-08-26] MEDS: Chlorhexidine Gluconate 2% 1 Pack (2 Cloths) TOPICAL SCH (04:13)
[2018-08-26 04:18] LABS: Activated Partial Thrombo Time 42.3 sec (23.4-31.7); INR 1.2 Ratio; Prothrombin Time 11.9 sec (9.8-11.6)
[2018-08-26 04:31] LABS: Albumin 1.9 g/dL (3.4-5.0); Anion Gap 9 meq/L (5-15); Aspartate Aminotransferase 16 U/L (15-37); Blood Urea Nitrogen 41 mg/dL (7-18); Chloride 105 meq/L (98-107); Glomerular Filtration Rate 53 mL/min (>89); Glucose,Random 181 mg/dL (74-106); Magnesium 2.4 mg/dL (1.5-2.5); Potassium 3.3 meq/L (3.5-5.1); Sodium 140 meq/L (136-145)
[2018-08-26 04:32] LABS: Alanine Aminotransferase 22 U/L (12-78)
[2018-08-26 04:41] LABS: Alkaline Phosphatase 71 U/L (45-117); Thyroid Stimulating Hormone 0.094 uIU/mL (0.358-3.740); Troponin I 0.08 ng/mL (0.02-0.05)
[2018-08-26] MEDS: MethylPREDNISolone Sod Succinate Inj 40 MG/ML Vial IV.PUSH SCH ×3 (06:18→22:33)
[2018-08-26] MEDS: Artificial Tears Opth Drops 15 ML Bottle EACH EYE SCH ×3 (06:55→22:33)
[2018-08-26] MEDS ORDERED: Potassium Phosphate 500 MG Soluble Tablet PO PRN (08:30)
[2018-08-26] MEDS ORDERED: Potassium Chloride 25 MEQ Effervescent Tablet PO PRN (08:30)
[2018-08-26] MEDS ORDERED: Sodium Phosphate Inj 30 MMOL in Sodium Chlor 0.9% Inj 250 ML IV.SIG PRN (08:30)
[2018-08-26] MEDS ORDERED: Potassium Chlor 40 mEq Premix 40 MEQ/100 ML PIGGYBACK IV.SIG PRN (08:30)
[2018-08-26] MEDS ORDERED: Magnesium Sulfate Inj 2 GM in Sodium Chlor 0.9% Inj 96 ML IV.SIG PRN (08:30)
[2018-08-26] MEDS ORDERED: Magnesium Sulfate Inj 4 GM in Sodium Chlor 0.9% Inj 92 ML IV.SIG PRN (08:30)
[2018-08-26] MEDS ORDERED: Magnesium Oxide 400 MG Tablet PO PRN (08:30)
[2018-08-26] MEDS ORDERED: Potassium Phosphate Inj 30 MMOL in Sodium Chlor 0.9% Inj 250 ML IV.SIG PRN (08:30)
[2018-08-26] MEDS: Chlorhexidine 0.12% Oral Kit 15 ML UDC OROPHARYNG SCH ×2 (08:33→20:48)
[2018-08-26] MEDS: Metoprolol Tartrate 25 MG Tablet PO SCH ×2 (08:34→20:40)
[2018-08-26] MEDS: Pantoprazole Inj 40 MG Vial IV.PUSH SCH (08:35)
[2018-08-26] MEDS: Senna/Docusate Sodium 8.6/50 MG Tablet PO SCH ×2 (08:35→20:48)
--- NOTE | 2018-08-26 09:00 | P.PNCC ---
Subjective Subjective Remarks/Hospital Course: This is an 83-year-old male. Date of admission 08/25/2018. Past medical includes atrial fibrillation with history of cardioversion, chronic apixaban use, hypertension, hyperlipidemia, trigeminal neuralgia/hard of hearing : Bilateral hearing aids. For the past 4 days, patient been increasing short of breath increased malaise. Denies any sick contacts or recent travels. Unknown influenza status. Patient is to [facility] with worsening shortness of breath. Complains of pleuritic and musculoskeletal chest pain. Patient also has a prior history of tobacco abuse times 50 years quit 15 years ago. Patient called EMS for evaluation due to acute shortness of breath. Upon arrival, patient was noted to be in a rapid heart rate in the 150s. Patient was given acute bronchodilator therapy and started on a lidocaine drip for possible V. tach. Patient was transported to [facility] for further evaluation treatment. Upon arrival, patient was noted to be in A. fib with RVR. Chest x-ray revealed bilateral infiltrates right greater than left. Patient was placed on BiPAP therapy with some improvement. Patient received ceftriaxone and azithromycin. 3 L normal saline. Patient remained somewhat hypotensive. Patient a lactate of 5.1. Troponin 0 0.27. Patient was transported to [facility]. On arrival, patient increasingly short of breath. Required intubation with central line placement and arterial line placement. SUBJECTIVE: 08/26: Currently resting in bed intubated requiring mechanical ventilation. Arousable and does follow commands but heart rate much better controlled rate. No acute findings overnight. Leukocytosis slightly worsened. Potassium replaced currently. Arousable and does follow commands. at bedside and updated Wilma. Objective Vital Signs / I&O: Vital Signs 08/25/18 09:40 08/25/18 09:44 08/25/18 09:50 Temperature 98.4 F Pulse Rate 150 H 125 H Respiratory Rate 28 H 28 H Blood Pressure 187/101 H 136/88 Pulse Oximetry 94 L 95 95 08/25/18 10:29 08/25/18 11:25 08/25/18 11:33 Temperature Pulse Rate 107 H 108 H 95 H Respiratory Rate 22 34 H 34 H Blood Pressure 127/63 110/69 Pulse Oximetry 95 96 08/25/18 11:50 08/25/18 12:37 08/25/18 12:47 Temperature Pulse Rate 101 H 110 H Respiratory Rate 32 H 37 H Blood Pressure 106/69 158/91 H Pulse Oximetry 96 96 08/25/18 12:50 08/25/18 13:00 08/25/18 13:30 Temperature 98.1 F Pulse Rate 106 H 103 H Respiratory Rate 36 H 35 H Blood Pressure 132/81 127/79 Pulse Oximetry 97 95 96 08/25/18 13:44 08/25/18 13:46 08/25/18 13:48 Temperature Pulse Rate 106 H 122 H 120 H Respiratory Rate 41 H 25 H 16 Blood Pressure 176/91 H 194/115 H 163/91 H Pulse Oximetry 96 97 98 08/25/18 13:50 08/25/18 13:51 08/25/18 14:00 Temperature Pulse Rate 114 H 97 H Respiratory Rate 16 16 16 Blood Pressure 160/107 H 194/118 H Pulse Oximetry 98 98 98 08/25/18 14:03 08/25/18 14:10 08/25/18 14:25 Temperature Pulse Rate 129 H 119 H Respiratory Rate 16 16 20 Blood Pressure 154/101 H 196/103 H 168/76 H Pulse Oximetry 98 97 08/25/18 14:40 08/25/18 15:00 08/25/18 15:11 Temperature Pulse Rate 105 H 104 H 106 H Respiratory Rate 16 Blood Pressure 152/73 H Pulse Oximetry 94 L 93 L 93 L 08/25/18 15:24 08/25/18 15:34 08/25/18 16:00 Temperature Pulse Rate 100 H 92 H Respiratory Rate 18 18 Blood Pressure 84/55 L 96/51 L Pulse Oximetry 92 L 92 L 94 L 08/25/18 17:00 08/25/18 17:15 08/25/18 17:30 Temperature Pulse Rate 83 81 85 Respiratory Rate 18 Blood Pressure 100/60 Pulse Oximetry 97 97 98 08/25/18 17:45 08/25/18 18:00 08/25/18 18:04 Temperature 97.8 F Pulse Rate 82 79 80 Respiratory Rate 18 Blood Pressure Pulse Oximetry 97 98 97 08/25/18 18:15 18 18:30 08/25/18 18:45 Temperature Pulse Rate 79 81 81 Respiratory Rate Blood Pressure Pulse Oximetry 97 97 97 08/25/18 19:00 08/25/18 19:04 08/25/18 19:15 Temperature Pulse Rate 80 79 77 Respiratory Rate Blood Pressure 95/66 L Pulse Oximetry 97 97 98 08/25/18 19:30 08/25/18 19:45 08/25/18 20:00 Temperature 97.8 F Pulse Rate 79 81 77 Respiratory Rate 18 Blood Pressure Pulse Oximetry 97 97 97 08/25/18 20:04 08/25/18 20:15 08/25/18 20:30 Temperature Pulse Rate 82 81 79 Respiratory Rate Blood Pressure 97/64 L Pulse Oximetry 97 97 98 08/25/18 20:45 08/25/18 20:56 08/25/18 20:59 Temperature Pulse Rate 77 85 Respiratory Rate 18 18 Blood Pressure Pulse Oximetry 98 98 08/25/18 21:00 08/25/18 21:04 08/25/18 21:15 Temperature Pulse Rate 76 76 77 Respiratory Rate Blood Pressure 102/67 Pulse Oximetry 98 98 98 08/25/18 21:30 08/25/18 21:45 08/25/18 22:00 Temperature Pulse Rate 87 80 75 Respiratory Rate Blood Pressure Pulse Oximetry 99 98 98 08/25/18 22:04 08/25/18 22:15 08/25/18 22:30 Temperature Pulse Rate 78 73 77 Respiratory Rate Blood Pressure 112/75 Pulse Oximetry 98 98 98 08/25/18 22:45 08/25/18 23:00 08/25/18 23:04 Temperature Pulse Rate 70 72 70 Respiratory Rate Blood Pressure 115/61 Pulse Oximetry 98 98 98 08/25/18 23:12 08/25/18 23:15 08/25/18 23:16 Temperature Pulse Rate 72 68 Respiratory Rate 18 18 Blood Pressure Pulse Oximetry 99 99 08/25/18 23:30 08/25/18 23:45 08/26/18 00:00 Temperature 97.5 F L Pulse Rate 72 70 75 Respiratory Rate 18 Blood Pressure 113/77 Pulse Oximetry 98 98 98 08/26/18 00:04 08/26/18 00:15 08/26/18 00:30 Temperature Pulse Rate 72 72 70 Respiratory Rate Blood Pressure 113/77 Pulse Oximetry 98 98 98 08/26/18 00:45 08/26/18 01:00 08/26/18 01:04 Temperature Pulse Rate 70 72 70 Respiratory Rate Blood Pressure 114/65 Pulse Oximetry 98 98 98 08/26/18 01:15 08/26/18 01:30 08/26/18 01:45 Temperature Pulse Rate 74 70 68 Respiratory Rate Blood Pressure Pulse Oximetry 99 99 99 08/26/18 01:52 08/26/18 02:00 08/26/18 02:04 Temperature Pulse Rate 69 70 Respiratory Rate 18 Blood Pressure 120/65 Pulse Oximetry 99 98 98 08/26/18 02:15 08/26/18 02:30 08/26/18 02:45 Temperature Pulse Rate 72 69 68 Respiratory Rate Blood Pressure Pulse Oximetry 99 98 98 08/26/18 03:00 08/26/18 03:04 08/26/18 03:10 Temperature Pulse Rate 69 64 66 Respiratory Rate 18 Blood Pressure 117/76 Pulse Oximetry 99 99 08/26/18 03:15 08/26/18 03:30 08/26/18 03:45 Temperature Pulse Rate 67 70 70 Respiratory Rate Blood Pressure Pulse Oximetry 99 99 98 08/26/18 04:00 08/26/18 04:04 08/26/18 04:09 Temperature 97.5 F L Pulse Rate 72 72 Respiratory Rate 18 18 Blood Pressure 120/63 120/63 Pulse Oximetry 98 98 99 08/26/18 04:15 08/26/18 04:30 08/26/18 04:45 Temperature Pulse Rate 70 71 70 Respiratory Rate Blood Pressure Pulse Oximetry 99 98 99 08/26/18 05:00 08/26/18 05:04 08/26/18 05:15 Temperature Pulse Rate 73 66 72 Respiratory Rate Blood Pressure 114/65 Pulse Oximetry 99 99 99 08/26/18 05:30 08/26/18 05:45 08/26/18 06:00 Temperature Pulse Rate 73 64 63 Respiratory Rate Blood Pressure Pulse Oximetry 99 99 99 08/26/18 06:04 08/26/18 06:15 08/26/18 06:30 Temperature Pulse Rate 65 65 68 Respiratory Rate Blood Pressure 126/71 Pulse Oximetry 99 99 99 08/26/18 06:45 Temperature Pulse Rate 64 Respiratory Rate Blood Pressure Pulse Oximetry 99 Intake & Output 08/25/18 08/26/18 08/26/18 18:59 06:59 18:59 Intake Total 2650 / 2650 851 / 851 2126.2 / 2126.2 Output Total 350 / 350 250 / 250 Balance 2300 / 2300 601 / 601 2126.2 / 2126.2 Weight 96 kg 107.5 kg Intake: IV 2650 / 2650 300 / 300 2126.2 / 2126.2 Diprivan 1000 mg/100 ml Inj 1, 200 / 200 100 / 100 000 mg In 100 ml @ 5 MCG/KG/MIN 2.88 mls/hr IV.CONT TITRATE PRN Rx#:[id number] Azithromycin Inj 500 MG In NS 500 / 500 Inj 250 ML @ 250 mls/hr IV.SIG ONCE ONE Rx#:[id number] MVI-12 Inj 10 ML Thiamine Inj 511.2 / 511.2 100 MG Folvite Inj 1 MG In NS Inj 500 ML @ 125 mls/hr IV.SIG Q24H BRIANNA Rx#:[id number] Zosyn 3.375 GM Premix 50 ML @ 50 / 50 100 / 100 100 mls/hr IV.SIG Q6H BRIANNA Rx#: [id number] NS Inj 1,000 ML @ 3000 mls/hr 1999 / 1999 IV.SIG Q20M [facility] Rx#:[id number] Rocephin Inj 2,000 MG In NS Inj 100 / 100 100 ML @ 200 mls/hr IV.SIG ONCE ONE Rx#:[id number] Tube Feeding 491 / 491 Water Bolus Amount 60 / 60 Output: Urine Amount (Catheter) 300 / 300 250 / 250 Indwelling Temp Sensing 300 / 300 250 / 250 Catheter Gastric Drainage 50 / 50 Orogastric Tube 50 / 50 Other: # Bowel Movements 0 Result Diagrams: 08/26/18 04:00 08/26/18 04:00 Other Results: Microbiology 08/25/18 17:08 Nasal Wash Influenza Types A,B Antigen - Final Negative for FLU A and B antigen Infection due to influenza A or B cannot be ruled out since the antigen present in the sample may be below the detection limit of the test. Imaging: Abdomen/Bladder Ultrasound 08/25/18 00:00 CONCLUSION: 1. No evidence of hydronephrosis. 2. Bilateral renal cysts, mostly simple, with one cyst demonstrating homogeneous low level echoes, located in the midpole the left kidney and measuring 4 cm. Venous Doppler Study 08/25/18 00:00 CONCLUSION: 1. The study is negative for bilateral lower extremity deep venous thrombosis. Chest X-Ray 08/25/18 09:44 CONCLUSION: Extensive bilateral infiltrates, right worse than left Chest X-Ray 08/25/18 14:07 CONCLUSION: 1. Severe diffuse infiltrate is noted within the right lung and within left lung base consistent with probable bilateral pneumonia which is much worse on the right than the left. 2. Stable cardiomegaly. 3. Left internal jugular central line has its tip in superior vena cava. No pneumothorax is noted. Objective Remarks: GENERAL: This is an 83-year-old male currently orotracheally intubated SKIN: Warm and dry. HEAD: Atraumatic. Normocephalic. EYES: Pupils equal and round. No scleral icterus. No injection or drainage. ENT: No nasal bleeding or discharge. Mucous membranes pink and moist. NECK: Trachea midline. No JVD. Left IJ CVL is clean dry and intact CARDIOVASCULAR: IRR. S1, S2 no S4. RESPIRATORY: No accessory muscle use. Rhonchorous breath sounds appreciated bilaterally anterior and posterior the right great left. Diminished. GASTROINTESTINAL: Abdomen soft, non-tender, nondistended. Hepatic and splenic margins not palpable. MUSCULOSKELETAL: Extremities with chronic venous stasis bilateral. Trace bilateral lower extremity edema. NEUROLOGICAL: Awake and alert. No obvious cranial nerve deficits. Motor grossly within normal limits. Five out of 5 muscle strength in the arms and legs. Assessment and Plan - Problem List (1) Acute respiratory failure with hypoxia and hypercapnia Code(s): J96.01 - Acute respiratory failure with hypoxia; J96.02 - Acute respiratory failure with hypercapnia Status: Acute (2) Hyponatremia Code(s): E87.1 - Hypo-osmolality and hyponatremia Status: Acute (3) Lactic acidosis Code(s): E87.2 - Acidosis Status: Acute (4) Atrial fibrillation with rapid ventricular response Code(s): I48.91 - Unspecified atrial fibrillation Status: Acute (5) Acute kidney injury Code(s): N17.9 - Acute kidney failure, unspecified Status: Acute (6) Chronic steroid use Status: Chronic (7) Hypertension Code(s): I10 - Essential (primary) hypertension Status: Chronic (8) Hyperlipidemia Code(s): E78.5 - Hyperlipidemia, unspecified Status: Chronic (9) Hard of hearing Code(s): H91.90 - Unspecified hearing loss, unspecified ear Status: Chronic (10) Trigeminal neuralgia Code(s): G50.0 - Trigeminal neuralgia Status: Chronic (11) Chronic anticoagulation Code(s): Z79.01 - terminal system operator (current) use of anticoagulants Status: Chronic (12) Leukocytosis Code(s): D72.829 - Elevated white blood cell count, unspecified Status: Acute (13) Elevated troponin Code(s): R74.8 - Abnormal levels of other serum enzymes Status: Acute (14) Hypoalbuminemia Code(s): E88.09 - Other disorders of plasma-protein metabolism, not elsewhere classified Status: Acute - Assessment and Plan Plan: Neuro/Psych: Hard of hearing Patient is currently on propofol/fentanyl drips for sedation/analgesia while intubated Goal of RA SS -2 Daily sedation vacation Acetaminophen 650 mg by tube every 6 hours as needed fever CV: Atrial fibrillation with rapid ventricular response currently rate controlled Elevated troponin History of essential hypertension Hyperlipidemia Lactic acidosis Currently on status post 3 L normal saline Serial troponin until downward trend currently 0.08 Follow-up on 2D echocardiogram Lactic acid's until cleared currently 1.4 Metoprolol tartrate 25 mg twice daily/hold if heart rate less than 65, systolic blood pressure less than 110 or vasopressors. 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 [facility] 18/575/1.11/17/64 Ventilator bundle Albuterol/ipratropium aerosols every 4 hours with albuterol aerosols every 2 hours as needed dyspnea Add fluticasone/Vilanterol 200/25 1 inhalation daily Follow postintubation chest x-ray and ABG Continue use steroids but switch to methylprednisolone succinate 40 mg every 8 hours Head of bed at 30 degrees Pulmonology consultation per request GI: Hypoalbuminemia Elevated total bilirubin NG tube placement Start on tube feeding Glucerna 1.5 at 55 cc an hour goal Pantoprazole for GI prophylaxis Docusate sodium/senna 1 tablet twice daily for bowel regimen : Chavez catheter for accurate I's and O's in a critical patient Endo: Acute hyperglycemia Chronic steroid use Low TSH Sliding scale insulin aspart insulin to maintain euglycemia/moderate regimen Every 6 hours TSH was 0.094. Check total T3/free T4 On steroids as above see orders Renal: Elevated creatinine question acute kidney injury normalizing Check urine eosinophils and electrolytes negative eosinophils. Prerenal indices by Gauri Check renal ultrasound -0 bilateral renal cyst. Possible hemorrhagic left renal cyst Avoid nephrotoxic medication Monitor urine output Accurate I's and O's Heme: Leukocytosis Monitor CBC daily. Follow trends per No indication for transfusion of blood products at this time ID: Community acquired pneumonia Received rote ceftriaxone and azithromycin in ED Currently on vancomycin/piperacillin/tazobactam and azithromycin day #2 Blood cultures x2, sputum, UA, urine Legionella pneumococcal antigens influenza a and B all pending MSK: Elevated BMI PT evaluate and treat Weight loss encouraged FEN: Hypopotassemia Replace electrolytes as clinically indicated Access -Utilize left IJ CVL day 2 -Utilize right femoral arterial line day #2 Prophylaxis -GI -pantoprazole -DVT -SCD/apixaban provides pharmacological prophylaxis Critical care time 35 minutes not including procedures discussed with Wilma wilkerson. Care plan discussed and all questions answered. (7) Hypertension Qualifiers: Hypertension type: essential hypertension Qualified Code(s): I10 - Essential (primary) hypertension (8) Hyperlipidemia Qualifiers: Hyperlipidemia type: unspecified Qualified Code(s): E78.5 - Hyperlipidemia, unspecified (9) Hard of hearing Qualifiers: Hearing loss type: unspecified Laterality: bilateral Qualified Code(s): H91.93 - Unspecified hearing loss, bilateral (12) Leukocytosis Qualifiers: Leukocytosis type: unspecified Qualified Code(s): D72.829 - Elevated white blood cell count, unspecified
[2018-08-26] MEDS: Azithromycin Inj 500 MG in Sodium Chlor 0.9% Inj 250 ML IV.SIG SCH (11:00)
--- NOTE | 2018-08-26 12:18 | P.DIET ---
Nutritional Evaluation Type of nutrition evaluation: initial Nutrition consult regarding: Tube Feeding Objective - Diagnosis Sepsis, Pneumonia - Objective Body Mass Index: 37.1 % IBW: 160 (IBW = 148#) Body Weight Used for Calculations: IBW (67.3 kg) Energy Needs - Lower Range (kCal/kg): 25 Energy Needs - Upper Range (kCal/kg): 30 Lower Limit kCal/kg (kCals): 1,682 Upper Limit kCal/kg (kCals): 2,019 Lower Limit Protein Factor (Grams per Kg): 1.0 Upper Limit Protein Factor (Grams per Kg): 1.5 Lower Protein Needs (Protein): 67 Upper Protein Needs (Protein): 101 Dietitian Reviewed in Medical Record: Curent medications, Intake & Output, Labs , Medical history, Tube feeding Diet Order: NPO Objective Comments: Meds include MVI/thiamin/folic acid IV GLU 181 Assessment Assessment: Pt is intubated and sedated and needs TFing to meet nutritional needs. Current order is for Glucerna 1.5 @ 55 mls/hr. Recommend decrease goal rate to 45 mls/ hr to provide 1620 kcals, 89 gms protein and 820 mls of free water. Some additional kcals will be provide by propofol (1.1 kcal/ml). Recommendations: Glucerna 1.5 @ 45 mls/hr goal Dietitian to Monitor: Lab values, Intake & Output, Tube feeding tolerance, Weight change, Medical course
[2018-08-26] MEDS ORDERED: Norepinephrine Inj 16 MG in Sodium Chlor 0.9% Inj 234 ML IV.CONT PRN (13:20)
--- NOTE | 2018-08-26 14:21 | XR ---
EXAM DATE: 08/26/2018 2:01 PM EST AGE/SEX: 83 years / Male INDICATIONS: Short of breath. CLINICAL DATA: This is the patient's initial encounter. Patient reports that signs and symptoms have been present for 1 day and indicates a pain score of Nonresponsive. MEDICAL/SURGICAL HISTORY: None. Chronic obstructive pulmonary disease. Hypertension. Atrial fib rillation. Hyperlipidemia. . None. Gamma knife treatment. Knee surgery. Lithotripsy. COMPARISON: [facility], CHEST 1V SINGLE AP, 08/25/2018. . FINDINGS: A single AP view of the chest demonstrates persistent bilateral pulmonary infiltrates more pronounced involving the right lung. A tiny left effusion. Questionable tiny right effusion. Heart is mildly en larged. Endotracheal tube tip 3 cm from the carin. Nasogastric tube in the region of the body the st omach. Myocardial directly. Left internal jugular vein central venous line. CONCLUSION: Overall no significant change from the prior exam. Diffuse bilateral pulmonary infiltrates particular ly on the right remain. Electronically signed by: Dionicio Camargo MD 08/26/2018 2:19 PM EST
--- NOTE | 2018-08-26 15:46 | MB ---
cc: Cheryl Matute MD DATE: 08/26/2018 HISTORY OF PRESENT ILLNESS: An 83-year-old white male with a history of atrial fibrillation, on Eliquis, hypertension, dyslipidemia, who developed progressive shortness of breath and called EMS on 08/25/2018. He was found to be in atrial fibrillation with rapid ventricular response. His chest x-ray showed bilateral infiltrates. He was started on BiPAP and was eventually intubated and transferred to [facility] ICU. PAST MEDICAL HISTORY: Positive for dyslipidemia, atrial fibrillation, COPD, hypertension, deafness, history of lithotripsy, TKA. MEDICATIONS AT HOME: 1. Eliquis. 2. Breo Ellipta. 3. Metoprolol 4. Prednisone. ALLERGIES: AMIODARONE. SOCIAL HISTORY: The patient does not smoke, but used to smoke in the past. He drinks alcohol several times a week. FAMILY HISTORY: Negative for heart disease. REVIEW OF SYSTEMS: Otherwise negative. PHYSICAL EXAMINATION: VITAL SIGNS: Blood pressure 117/68, pulse 65 and irregular. HEENT: Negative. The patient is intubated on the ventilator and sedated. NECK: 2+ carotid upstrokes. LUNGS: Bilateral rhonchi. Decreased breath sounds. HEART: Irregular. No gallop. ABDOMEN: Soft, no bruits. EXTREMITIES: Trace edema, 1+ distal pulses. NEUROLOGIC: Nonfocal. The patient is sedated. LABORATORY DATA: EKG was reviewed and initially revealed atrial fibrillation with a rapid ventricular response. Telemetry now shows atrial fibrillation with controlled ventricular response. Hemoglobin 12.1. Potassium 3.3, creatinine 1.3. AST and ALT normal. Troponin 0.27, 0.21 and 0.08. IMPRESSION: 1. Atrial fibrillation with rapid ventricular response. 2. Acute respiratory failure. 3. Acute kidney failure. 4. Hypertension. 5. Dyslipidemia. 6. Chronic steroid use. 7. History of smoking. 8. Mild troponin elevation. 9. Pneumonia. DISPOSITION: Mr. Joiner will be monitored in the ICU. I recommend to continue rate control. I also recommend to continue anticoagulation for his atrial fibrillation. We will obtain echocardiogram to evaluate his left ventricular function. He will be treated for pneumonia with antibiotics. I will follow him for cardiology during his hospitalization. MD DEANGELO Pike/zeynep , 03:13 PM , 03:27 PM VINICIO
--- NOTE | 2018-08-26 16:06 | ECHRPT ---
Indication: short of breath CONCLUSIONS Normal left ventricular size. Mild concentric left ventricular hypertrophy. The left ventricular systolic function is mildy reduced with an estimated ejection fraction of 45%. Right ventricular enlargement and dysfunction. The left atrial size is mildly dilated. Mild thickening of the mitral valve leaflets. [id number] mitral valve regurgitation. Diffuse calcification of the aortic valve. The estimated pulmonary arterial pressure is 38 mmHg. BP: / HR: Rhythm: MEASUREMENTS (Male / Female) Normal Values Technical Quality: 2D ECHO LV Diastolic Diameter PLAX 4.6 cm 4.2 - 5.9 / 3.9 - 5.3 cm LV Systolic Diameter PLAX 4.0 cm IVS Diastolic Thickness 1.3 cm 0.6 - 1.0 / 0.6 - 0.9 cm LVPW Diastolic Thickness 1.4 cm 0.6 - 1.0 / 0.6 - 0.9 cm LV Relative Wall Thickness 0.6 RV Internal Dim ED PLAX 4.1 cm LVOT Diameter 2.0 cm Aortic Root Diameter 2.8 cm LA Systolic Diameter LX 4.4 cm 3.0 - 4.0 / 2.7 - 3.8 cm LV Ejection Fraction MOD 4C -73.9 % LV Ejection Fraction 4C AL -65.0 % M-MODE Aortic Root Diameter MM 3.7 cm LA Systolic Diameter MM 4.4 cm LA Ao Ratio MM 1.2 AV Cusp Separation MM 1.7 cm DOPPLER AV Peak Velocity 129.0 cm/s AV Peak Gradient 6.7 mmHg AI Peak Velocity 166.0 cm/s AI Peak Gradient 11.0 mmHg AI Pressure Half Time 656.0 ms LVOT Peak Velocity 57.6 cm/s LVOT Peak Gradient 1.3 mmHg AV Area Cont Eq pk 1.4 cm Mitral E Point Velocity 102.0 cm/s TR Peak Velocity 263.0 cm/s TR Peak Gradient 27.7 mmHg Right Atrial Pressure 10.0 mmHg Pulmonary Artery Systolic Pressu 37.7 mmHg Right Ventricular Systolic Press 37.7 mmHg PV Peak Velocity 76.0 cm/s PV Peak Gradient 2.3 mmHg FINDINGS LEFT VENTRICLE Normal left ventricular size. Mild concentric left ventricular hypertrophy. The left ventricular systolic function is mildly reduced with an estimated ejection fraction of 45%. RIGHT VENTRICLE Right ventricular enlargement and dysfunction. LEFT ATRIUM The left atrial size is mildly dilated. RIGHT ATRIUM The right atrial size is normal. ATRIAL SEPTUM Normal atrial septal thickness without atrial level shunting by limited color doppler interrogation. AORTA The aortic root and proximal ascending aorta are normal in size on limited imaging. MITRAL VALVE Mild thickening of the mitral valve leaflets. [id number] mitral valve regurgitation. AORTIC VALVE Diffuse calcification of the aortic valve. TRICUSPID VALVE The estimated pulmonary arterial pressure is 38 mmHg. PULMONARY VALVE No pulmonary valve regurgitation or stenosis. VESSELS The inferior vena cava is normal in size. PERICARDIUM No pericardial effusion. Cheryl Matute MD, FACC (Electronically Signed) Final Date:26 August 2018 16:05
[2018-08-26] MEDS: Multivitamin Inj 10 ML, Thiamine Inj 100 MG, Folic Acid Inj 1 MG in Sodium Chlor 0.9% I... IV.SIG SCH (17:09)
--- NOTE | 2018-08-26 21:19 | MB ---
cc: Nanda Gonzales MD DATE: 08/26/2018 REASON FOR CONSULTATION: Respiratory failure, pulmonary management. HISTORY OF PRESENT ILLNESS: This is an 83-year-old white male who was admitted on 08/25/2018 with history of shortness of breath and a rapid heartbeat. The patient was brought by [facility]. He had also complained of pleuritic chest pain and was given bronchodilators and was also started on lidocaine drip for V-tach. Following an arrival in the ER, the patient was in atrial fibrillation with rapid ventricular response and a chest x-ray revealed bilateral pulmonary infiltrates. He did improve some with use of BiPAP; however, the patient was transported to [facility] from [place], and upon arrival at [facility] he became extremely dyspneic and had to be intubated emergently, placed on ventilator support and 100% oxygen. He also was sedated and had to be on pressors to maintain his blood pressure. The chest x-ray again showed bilateral patchy pulmonary infiltrates. He was given a sedation vacation and currently moves everything and is responsive to commands. PAST MEDICAL HISTORY: Includes history for atrial fibrillation, status post cardioversion, history of hypertension and hyperlipidemia, history of trigeminal neuralgia. He also has a history of COPD with emphysema. No history of diabetes. SOCIAL AND HABITS: The patient was a prior smoker for 20 years, a pack a day, drinks alcohol moderately. ALLERGIES: AMIODARONE. MEDICATIONS: List was reviewed from the chart. REVIEW OF SYSTEMS: The patient is on ventilator support, unable to respond to questions. PHYSICAL EXAMINATION: GENERAL: This is an elderly, moderately overweight white male who was intubated, responsive, but assisting the ventilator. VITAL SIGNS: Blood pressure 120/60, pulse is 96, respirations 22, temperature 98. HEENT: Head is normocephalic. Pupils are reactive and equal. Sclerae are clear. Tongue is moist. Throat is injected. GENITOURINARY: No inflammation. NECK: Supple with mild venous distention while lying flat. Trachea midline. No thyroid enlargement or lymphadenopathy. CHEST: Equal movements with an increased AP diameter with diffuse wheezes throughout both lung joel, prolonged expirations. HEART: The heart sounds are irregular S1 and S2 with no definite murmur. No S3. ABDOMEN: Soft, obese without masses. No organomegaly. The bowel sounds are active. EXTREMITIES: Mild varicosities and decreased peripheral pulses and mild peripheral edema. Reflexes are not elicited. The patient is sedated. Cranial nerves not tested. RECTAL: Deferred. IMPRESSION: 1. Acute hypoxemic respiratory failure. 2. COPD and emphysema. 3. Atrial fibrillation with a rapid ventricular response. 4. Pulmonary edema. 5. Basilar pneumonia. 6. History of hypertension. 7. Trigeminal neuralgia. PLAN: 1. The patient will be maintained on ventilator support. We will wean the FiO2 down to 40%. Nebulized DuoNeb solution been added every 4 hours p.r.n. Frequent tracheal suctioning tracheal toilet to be done. 2. Place him on Solu-Medrol 40 mg every 8 hours. Continue with antibiotic coverage as ordered including Zithromax 500 mg IV daily and Zosyn 3.375 grams IV every 6 hours. A followup chest x-ray to be obtained. The patient will be kept sedated for now. 3. Pressors will be weaned down today. If he is clinically stable over the next 24 hours, he will be weaned down to CPAP in a.m. and blood gases repeated as well as respiratory parameters. 4. We will continue with anticoagulation including Eliquis 5 mg twice daily. Thank you, Dr. Miguel, for this consultation. Nanda Gonzales MD VJD/buster , 05:58 PM , 06:12 PM
[2018-08-27] MEDS: Insulin NovoLOG Aspart Correctional Sugar Inj SQ SCH ×5 (00:54→23:13)
[2018-08-27] MEDS: Oral Hygiene Kit OROPHARYNG SCH ×5 (00:54→23:13)
[2018-08-27] MEDS: Piperacil/Tazo 3.375 GM Premix 50 ML IV.SIG SCH ×4 (03:52→20:13)
[2018-08-27] MEDS: Propofol 1000 mg/100 ml Inj 1,000 MG/100 ML BOTTLE IV.CONT PRN ×4 (03:52→23:01)
[2018-08-27] MEDS: Chlorhexidine Gluconate 2% 1 Pack (2 Cloths) TOPICAL SCH (03:53)
[2018-08-27 04:24] LABS: Baso % (Auto) 0.2 % (0.0-2.0); Hematocrit 33.2 % (39.0-51.0); Hemoglobin 10.9 gm/dL (13.0-17.0); Lymph # (Auto) 0.5 th/mm3 (1.0-4.8); Lymph % (Auto) 2.7 % (9.0-44.0); Mean Corpuscular HGB Conc 32.8 % (32.0-36.0); Mean Corpuscular Hemoglobin 31.5 pg (27.0-34.0); Mean Platelet Volume 9.2 fL (7.0-11.0); Mono # (Auto) 0.8 th/mm3 (0.0-0.9); Mono % (Auto) 4.2 % (0.0-8.0); Neut # (Auto) 18.1 th/mm3 (1.8-7.7); Neut % (Auto) 92.9 % (16.0-70.0); Platelet Count 193 th/mm3 (150-450); Red Blood Count 3.46 mil/mm3 (4.50-5.90); Red Cell Distribution Width 14.9 % (11.6-17.2); White Blood Count 19.4 th/mm3 (4.0-11.0)
[2018-08-27 04:55] LABS: Alanine Aminotransferase 26 U/L (12-78); Albumin 1.6 g/dL (3.4-5.0); Alkaline Phosphatase 97 U/L (45-117); Anion Gap 9 meq/L (5-15); Aspartate Aminotransferase 22 U/L (15-37); Blood Urea Nitrogen 60 mg/dL (7-18); Calcium 9.1 mg/dL (8.5-10.1); Chloride 109 meq/L (98-107); Glomerular Filtration Rate 48 mL/min (>89); Glucose,Random 217 mg/dL (74-106); Magnesium 2.9 mg/dL (1.5-2.5); Potassium 4.2 meq/L (3.5-5.1); Sodium 142 meq/L (136-145); Total Protein 5.8 g/dL (6.4-8.2); Vancomycin,Random 4.5 Comment
--- NOTE | 2018-08-27 05:30 | XR ---
EXAM DATE: 08/27/2018 5:01 AM EST AGE/SEX: 83 years / Male INDICATIONS: Pneumonia. CLINICAL DATA: This is the patient's subsequent encounter. Patient reports that signs and symptoms h ave been present for 3 days and indicates a pain score of Nonresponsive. MEDICAL/SURGICAL HISTORY: . Chronic obstructive pulmonary disease. Hypertension. Atrial fibril lation. Hyperlipidemia. . Gamma knife treatment. Knee surgery. Lithotripsy. [place] [facility] [place]. . FINDINGS: Endotracheal tube, nasogastric tube, left IJ central venous catheter remain in place. Endotracheal tu be tip is just above the carin and could be retracted 2 centimeters. Bilateral pulmonary opacity rig ht greater than left unchanged. No evidence of pneumothorax. CONCLUSION: 1. No change in bilateral pulmonary opacity. 2. Endotracheal tube tip just above the carin and could be retracted 2 cm. Electronically signed by: Dane Gee MD 08/27/2018 5:29 AM EST
[2018-08-27] MEDS: Artificial Tears Opth Drops 15 ML Bottle EACH EYE SCH ×3 (06:06→22:08)
[2018-08-27] MEDS: MethylPREDNISolone Sod Succinate Inj 40 MG/ML Vial IV.PUSH SCH ×3 (06:06→21:09)
[2018-08-27 06:24] LABS: ABG Base Excess -2.6 mmol/L (-2-2); ABG PCO2 30 mmHg (38-42); ABG PO2 115 mmHg (61-120)
[2018-08-27 07:32] LABS: Dohle Bodies Present; Lymphocytes 1 % (9-44); Monocytes 6 % (0-8); Platelet Estimate Normal (Normal); Tallied Nucleated RBC 2 (0-0)
[2018-08-27] MEDS: Metoprolol Tartrate 25 MG Tablet PO SCH ×2 (08:47→20:13)
[2018-08-27] MEDS: fentaNYL 10 mcg/mL Premix Drip 2,500 MCG/250 ML BAG IV.SIG PRN (09:46)
[2018-08-27] MEDS: Senna/Docusate Sodium 8.6/50 MG Tablet PO SCH ×2 (09:47→20:13)
[2018-08-27] MEDS: Pantoprazole Inj 40 MG Vial IV.PUSH SCH (09:47)
[2018-08-27] MEDS: Chlorhexidine 0.12% Oral Kit 15 ML UDC OROPHARYNG SCH ×2 (09:48→20:13)
[2018-08-27] MEDS: Sod Chloride 0.9% Inj 1,000 ML IV.CONT SCH ×3 (09:50→21:45)
[2018-08-27] MEDS: Azithromycin Inj 500 MG in Sodium Chlor 0.9% Inj 250 ML IV.SIG SCH (10:29)
--- NOTE | 2018-08-27 11:17 | P.PNCC ---
Subjective Subjective Remarks/Hospital Course: This is an 83-year-old male. Date of admission 08/25/2018. Past medical includes atrial fibrillation with history of cardioversion, chronic apixaban use, hypertension, hyperlipidemia, trigeminal neuralgia/hard of hearing : Bilateral hearing aids. For the past 4 days, patient been increasing short of breath increased malaise. Denies any sick contacts or recent travels. Unknown influenza status. Patient is to [facility] with worsening shortness of breath. Complains of pleuritic and musculoskeletal chest pain. Patient also has a prior history of tobacco abuse times 50 years quit 15 years ago. Patient called EMS for evaluation due to acute shortness of breath. Upon arrival, patient was noted to be in a rapid heart rate in the 150s. Patient was given acute bronchodilator therapy and started on a lidocaine drip for possible V. tach. Patient was transported to [facility] for further evaluation treatment. Upon arrival, patient was noted to be in A. fib with RVR. Chest x-ray revealed bilateral infiltrates right greater than left. Patient was placed on BiPAP therapy with some improvement. Patient received ceftriaxone and azithromycin. 3 L normal saline. Patient remained somewhat hypotensive. Patient a lactate of 5.1. Troponin 0 0.27. Patient was transported to [facility]. On arrival, patient increasingly short of breath. Required intubation with central line placement and arterial line placement. SUBJECTIVE: 08/26: Currently resting in bed intubated requiring mechanical ventilation. Arousable and does follow commands but heart rate much better controlled rate. No acute findings overnight. Leukocytosis slightly worsened. Potassium replaced currently. Arousable and does follow commands. at bedside and updated Wilma. 08/27: Patient on low-dose (2 mcg) levo overnight, off since this morning. Low urine output over the past 24 hours. HR well-controlled in 70s-80s. Objective Vital Signs / I&O: Vital Signs 08/26/18 11:30 08/26/18 11:45 08/26/18 11:51 Temperature Pulse Rate 60 62 Respiratory Rate 18 Blood Pressure Pulse Oximetry 96 96 08/26/18 11:52 08/26/18 12:00 08/26/18 12:04 Temperature 97.6 F Pulse Rate 63 71 60 Respiratory Rate 18 Blood Pressure 132/69 146/76 H Pulse Oximetry 98 97 08/26/18 12:15 08/26/18 12:30 08/26/18 12:45 Temperature Pulse Rate 62 64 69 Respiratory Rate Blood Pressure Pulse Oximetry 97 98 97 08/26/18 13:00 08/26/18 13:04 08/26/18 13:15 Temperature Pulse Rate 75 73 74 Respiratory Rate Blood Pressure 114/75 Pulse Oximetry 97 97 96 08/26/18 13:30 08/26/18 13:45 08/26/18 14:00 Temperature Pulse Rate 75 72 71 Respiratory Rate Blood Pressure Pulse Oximetry 96 96 97 08/26/18 14:04 08/26/18 14:15 08/26/18 14:30 Temperature Pulse Rate 68 71 69 Respiratory Rate Blood Pressure 102/70 Pulse Oximetry 97 94 L 92 L 08/26/18 14:45 08/26/18 15:00 08/26/18 15:04 Temperature Pulse Rate 66 73 69 Respiratory Rate Blood Pressure 93/57 L Pulse Oximetry 93 L 93 L 92 L 08/26/18 15:10 08/26/18 15:14 08/26/18 15:15 Temperature Pulse Rate 87 84 84 Respiratory Rate Blood Pressure 167/98 H 125/59 L Pulse Oximetry 96 93 L 93 L 08/26/18 15:30 08/26/18 15:45 08/26/18 16:00 Temperature 97.6 F Pulse Rate 77 76 77 Respiratory Rate Blood Pressure 127/68 Pulse Oximetry 92 L 94 L 95 08/26/18 16:04 08/26/18 16:15 08/26/18 16:30 Temperature Pulse Rate 73 73 72 Respiratory Rate Blood Pressure 121/78 Pulse Oximetry 94 L 94 L 94 L 08/26/18 16:45 08/26/18 17:00 08/26/18 17:04 Temperature Pulse Rate 72 71 71 Respiratory Rate Blood Pressure 109/66 Pulse Oximetry 95 95 95 08/26/18 17:15 08/26/18 17:30 08/26/18 17:45 Temperature Pulse Rate 74 67 72 Respiratory Rate 18 Blood Pressure Pulse Oximetry 96 94 L 96 08/26/18 18:00 08/26/18 18:04 08/26/18 18:15 Temperature Pulse Rate 72 72 72 Respiratory Rate Blood Pressure 99/72 L Pulse Oximetry 94 L 94 L 94 L 08/26/18 18:30 08/26/18 18:45 08/26/18 19:00 Temperature Pulse Rate 72 73 72 Respiratory Rate Blood Pressure Pulse Oximetry 94 L 94 L 94 L 08/26/18 19:04 08/26/18 19:15 08/26/18 19:30 Temperature Pulse Rate 74 71 72 Respiratory Rate Blood Pressure 110/68 Pulse Oximetry 94 L 94 L 94 L 08/26/18 19:45 08/26/18 20:00 08/26/18 20:04 Temperature 97.9 F Pulse Rate 73 72 71 Respiratory Rate Blood Pressure 116/71 116/71 Pulse Oximetry 94 L 95 94 L 08/26/18 20:15 08/26/18 20:30 08/26/18 20:45 Temperature Pulse Rate 71 69 73 Respiratory Rate Blood Pressure Pulse Oximetry 97 97 94 L 08/26/18 21:00 08/26/18 21:04 08/26/18 21:15 Temperature Pulse Rate 73 72 74 Respiratory Rate Blood Pressure 114/73 Pulse Oximetry 94 L 94 L 94 L 08/26/18 21:30 08/26/18 21:45 08/26/18 22:00 Temperature Pulse Rate 74 75 72 Respiratory Rate Blood Pressure Pulse Oximetry 94 L 94 L 94 L 08/26/18 22:04 08/26/18 22:15 08/26/18 22:30 Temperature Pulse Rate 72 72 71 Respiratory Rate Blood Pressure 121/59 L Pulse Oximetry 95 95 95 08/26/18 22:45 08/26/18 23:00 08/26/18 23:04 Temperature Pulse Rate 73 74 72 Respiratory Rate 18 Blood Pressure 120/72 Pulse Oximetry 96 96 96 08/26/18 23:15 08/26/18 23:30 08/26/18 23:45 Temperature Pulse Rate 74 72 73 Respiratory Rate Blood Pressure Pulse Oximetry 96 96 96 08/27/18 00:00 08/27/18 00:04 08/27/18 00:15 Temperature 98.5 F Pulse Rate 73 72 72 Respiratory Rate 18 Blood Pressure 121/79 121/79 Pulse Oximetry 96 96 96 08/27/18 00:20 08/27/18 00:30 08/27/18 00:45 Temperature Pulse Rate 71 73 Respiratory Rate 18 Blood Pressure Pulse Oximetry 96 98 97 08/27/18 01:00 08/27/18 01:04 08/27/18 01:15 Temperature Pulse Rate 75 73 73 Respiratory Rate Blood Pressure 113/75 Pulse Oximetry 96 97 97 08/27/18 01:30 08/27/18 01:45 08/27/18 02:00 Temperature Pulse Rate 71 72 72 Respiratory Rate Blood Pressure Pulse Oximetry 97 94 L 95 08/27/18 02:04 08/27/18 02:15 08/27/18 02:30 Temperature Pulse Rate 75 73 71 Respiratory Rate Blood Pressure 103/66 Pulse Oximetry 94 L 95 95 08/27/18 02:45 08/27/18 03:00 08/27/18 03:04 Temperature Pulse Rate 69 70 74 Respiratory Rate 18 Blood Pressure 118/61 Pulse Oximetry 96 96 96 08/27/18 03:15 08/27/18 03:26 08/27/18 03:30 Temperature Pulse Rate 71 69 Respiratory Rate 18 Blood Pressure Pulse Oximetry 96 96 96 08/27/18 03:45 08/27/18 04:00 08/27/18 04:04 Temperature 98.5 F Pulse Rate 68 71 66 Respiratory Rate 18 Blood Pressure 130/67 129/72 Pulse Oximetry 97 97 97 08/27/18 04:15 08/27/18 04:30 08/27/18 04:45 Temperature Pulse Rate 68 68 71 Respiratory Rate Blood Pressure Pulse Oximetry 97 96 95 08/27/18 05:00 08/27/18 05:04 08/27/18 05:15 Temperature Pulse Rate 66 67 68 Respiratory Rate Blood Pressure 117/70 Pulse Oximetry 95 95 95 08/27/18 05:30 08/27/18 05:45 08/27/18 06:00 Temperature Pulse Rate 69 67 69 Respiratory Rate Blood Pressure Pulse Oximetry 95 95 95 08/27/18 06:04 08/27/18 06:15 08/27/18 06:30 Temperature Pulse Rate 70 66 64 Respiratory Rate Blood Pressure 113/82 Pulse Oximetry 95 96 95 08/27/18 06:45 08/27/18 07:00 08/27/18 07:04 Temperature Pulse Rate 65 63 66 Respiratory Rate Blood Pressure 111/77 Pulse Oximetry 96 95 95 08/27/18 07:15 08/27/18 07:30 08/27/18 07:45 Temperature Pulse Rate 63 62 60 Respiratory Rate Blood Pressure Pulse Oximetry 95 95 95 08/27/18 08:00 08/27/18 08:04 08/27/18 08:15 Temperature 97.8 F Pulse Rate 64 65 61 Respiratory Rate Blood Pressure 112/68 111/69 Pulse Oximetry 95 95 95 08/27/18 08:25 08/27/18 08:30 08/27/18 08:45 Temperature Pulse Rate 53 L 64 65 Respiratory Rate 18 Blood Pressure Pulse Oximetry 95 95 96 08/27/18 09:00 08/27/18 09:04 08/27/18 09:15 Temperature Pulse Rate 64 69 69 Respiratory Rate Blood Pressure 113/80 Pulse Oximetry 96 96 96 08/27/18 09:30 08/27/18 09:45 08/27/18 10:00 Temperature Pulse Rate 66 66 66 Respiratory Rate Blood Pressure Pulse Oximetry 96 96 96 08/27/18 10:04 08/27/18 10:15 08/27/18 10:30 Temperature Pulse Rate 69 62 71 Respiratory Rate Blood Pressure 112/68 Pulse Oximetry 94 L 94 L 95 08/27/18 10:45 08/27/18 11:00 08/27/18 11:04 Temperature Pulse Rate 72 67 69 Respiratory Rate Blood Pressure 97/67 L Pulse Oximetry 95 96 95 Intake & Output 08/26/18 08/27/18 08/27/18 18:59 06:59 18:59 Intake Total 3641.2 / 3641.2 2329.2 / 2329.2 400 / 400 Output Total 625 / 625 325 / 325 Balance 3016.2 / 3016.2 2004.2 / 2004.2 400 / 400 Weight 109.7 kg Intake: IV 2851.2 / 2851.2 1811.2 / 1811.2 400 / 400 Neosynephrine Inj 160 MG In NS 275 / 275 Inj 484 ML @ 40 MCG/MIN 7.5 mls /hr IV.CONT TITRATE PRN Rx#: [id number] Diprivan 1000 mg/100 ml Inj 1, 200 / 200 200 / 200 100 / 100 000 mg In 100 ml @ 5 MCG/KG/MIN 2.88 mls/hr IV.CONT TITRATE PRN Rx#:[id number] NS Inj 1,000 ML @ 84 mls/hr IV. 1000 / 1000 CONT .[id number] [facility] Rx#: [id number] Azithromycin Inj 500 MG In NS 250 / 250 Inj 250 ML @ 250 mls/hr IV.SIG Q24H [facility] Rx#:[id number] MVI-12 Inj 10 ML Thiamine Inj 511.2 / 511.2 511.2 / 511.2 100 MG Folvite Inj 1 MG In NS Inj 500 ML @ 125 mls/hr IV.SIG Q24H [facility] Rx#:[id number] Zosyn 3.375 GM Premix 50 ML @ 100 / 100 100 / 100 50 / 50 100 mls/hr IV.SIG Q6H [facility] Rx#: [id number] fentaNYL 10 mcg/mL Premix Drip 250 / 250 2,500 mcg In 250 ml @ 50 MCG/HR 5 mls/hr IV.SIG TITRATE PRN Rx #:[id number] Tube Feeding 510 / 510 458 / 458 Tube Irrigant 220 / 220 Water Bolus Amount 60 / 60 60 / 60 Output: Urine Amount (Catheter) 575 / 575 325 / 325 Indwelling Temp Sensing 575 / 575 325 / 325 Catheter Gastric Drainage 50 / 50 Orogastric Tube 50 / 50 Other: # Bowel Movements 0 Result Diagrams: 08/27/18 04:15 08/27/18 04:15 Objective Remarks: GENERAL: Well-appearing, intubated and sedated SKIN: Warm and dry. HEENT: NCAT NECK: Trachea midline. No JVD. Left IJ CVL is clean dry and intact CARDIOVASCULAR: Irregular RESPIRATORY: Diminished breath sounds at bases bilaterally GASTROINTESTINAL: Abdomen soft, non-tender, nondistended. MUSCULOSKELETAL: 1-2+ pitting edema to bilateral lower extremities, trace to 1+ in upper extremities NEUROLOGICAL: RASS -1 to -2 on sedation Assessment and Plan - Assessment and Plan Plan: Neuro/Psych: Hard of hearing Patient is currently on propofol/fentanyl drips for sedation/analgesia while intubated Goal of RASS -2 Daily sedation vacation Acetaminophen 650 mg by tube every 6 hours as needed fever CV: Atrial fibrillation with rapid ventricular response currently rate controlled Elevated troponin History of essential hypertension Hyperlipidemia Lactic acidosis Trop 0.27 on admission, most recent 0.08, no longer trending Echo: EF 45%, RV enlargement/ dysfunction, PAP 38 mm Hg Lactic acid cleared, no longer trending Metoprolol tartrate 25 mg twice daily/hold if heart rate less than 65, systolic blood pressure less than 110 or vasopressors. 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 [facility] 575/1.11/17/64 Ventilator bundle Albuterol/ipratropium aerosols every 4 hours with albuterol aerosols every 2 hours as needed dyspnea Add fluticasone/Vilanterol 200/25 1 inhalation daily Continue methylprednisolone succinate 40 mg every 8 hours Head of bed at 30 degrees Pulmonology consultation appreciated ETT at level of carin on CXR today, will retract 2-3 cm Spontaneous breathing trial today GI: Hypoalbuminemia Elevated total bilirubin NG tube placement Start on tube feeding Glucerna 1.5 at 55 cc an hour goal Pantoprazole for GI prophylaxis Docusate sodium/senna 1 tablet twice daily for bowel regimen : Chavez catheter for accurate I's and O's in a critical patient Endo: Acute hyperglycemia Chronic steroid use Low TSH Sliding scale insulin aspart insulin to maintain euglycemia/moderate regimen Every 6 hours TSH was 0.094, normal T4, T3 low-- would recheck in 4 weeks after critical illness has resolved On steroids as above see orders Renal: Elevated creatinine question acute kidney injury normalizing Creat stable at 1.4, urine output only 0.34 cc/kg/hr, will give a small dose of lasix today No urine eosinophils noted Renal ultrasound - bilateral renal cyst. Possible hemorrhagic left renal cyst Avoid nephrotoxic medication Monitor urine output Accurate I's and O's Heme: Leukocytosis Monitor CBC daily. Follow trends per No indication for transfusion of blood products at this time ID: Community acquired pneumonia Received rote ceftriaxone and azithromycin in ED Currently on vancomycin/piperacillin/tazobactam and azithromycin day #3 Blood cultures from 08/25 grew GNR and GPCs in 1/2 cultures, send repeat cultures today Sputum and urine cultures no growth to date Flu swab negative Legionella pending MSK: Elevated BMI PT evaluate and treat Weight loss encouraged FEN: Hypopotassemia Replace electrolytes as clinically indicated Access -Utilize left IJ CVL day 3 -Utilize right femoral arterial line day #3 Prophylaxis -GI -pantoprazole -DVT -SCD/apixaban provides pharmacological prophylaxis Level 2 follow up To help prompt me to consider important information that might be impacting today's encounter and assessment, information from prior notes written by myself or my colleagues may have been "brought forward" into today's note. My signature on this note, however, is an attestation that I personally performed the exam, history, and/or decision-making noted today, and, unless otherwise indicated, the interactions with patient, family, and staff as well as the review of records all occurred today. I also attest that the listed assessment and stated plan reflect my best clinical judgment today based on the combination of historical information, prior notes, and today's exam/ interactions. Code Status: Full
[2018-08-27] MEDS ORDERED: Vancomycin Inj 1,500 MG in Sodium Chlor 0.9% Inj 500 ML IV.SIG ONE (12:00)
--- NOTE | 2018-08-27 15:12 | P.PNCA ---
Subjective Interval history: Intubated, sedated Medications and Allergies Active Medications: Active Medications Acetaminophen (Tylenol) 650 mg PO Q6H PRN PRN Reason: PAIN 1-10 AND/OR FEVER >101F Al Hydroxide/Mg Hydroxide (Milk Of Magnjuwan Liq) 30 ml PO Q12H PRN PRN Reason: Mild Constipation Albuterol (Albuterol Neb (Prn)) 2.5 mg NEB Q2HR NEB PRN PRN Reason: SHORTNESS OF BREATH/WHEEZING Albuterol (Duoneb Neb (Cherry)) 1 ampul NEB Q4HR NE[address] [facility] Last Admin: 08/27/18 11:25 Dose: 1 ampul Apixaban (Eliquis) [address] [facility] Last Admin: 08/27/18 09:46 Dose: 5 mg Artificial Tears (Tears Naturale Opth Drops) 1 drop EACH EYE Q8H [facility] Last Admin: 08/27/18 15:03 Dose: 1 drop Bisacodyl (Dulcolax Supp) 10 mg RECTAL DAILY PRN PRN Reason: SEVERE CONSITIPATION Chlorhexidine Gluconate (Chlorhexidine 2% Cloth) 3 pack TOPICAL DAILY@0400 [facility] Stop: 08/31/18 03:59 Last Admin: 08/27/18 03:53 Dose: 3 pack Chlorhexidine Gluconate (Chlorhexidine 2% Cloth) 3 pack TOPICAL DAILY@0400 PRN PRN Reason: Extra cloth needed Stop: 08/31/18 03:59 Chlorhexidine Gluconate (Peridex 0.12% Oral Kit) 15 ml OROPHARYNG BID@0800, 2000 [facility] Last Admin: 08/27/18 09:48 Dose: 15 ml Dextrose (D50w Vial) 50 ml IV.PUSH UNSCH PRN PRN Reason: PER HYPOGLYCEMIA PROTOCOL Fluticasone/Vilanterol (Breo Ellipta 200/25 Mcg Inh) [address] [facility] Last Admin: 08/27/18 08:47 Dose: Not Given Glucagon (Glucagon Inj) 1 mg OTHER PRN PRN PRN Reason: for Hypoglycemia Protocol Sodium Chloride (Ns Inj) 1,000 mls @ 84 mls/hr IV.CONT .[id number] [facility] Last Admin: 08/27/18 11:30 Dose: Not Given Fentanyl (Fentanyl 10 Mcg/Ml Premix Drip) 2,500 mcg in 250 mls @ 5 mls/hr IV.SIG TITRATE PRN; Protocol PRN Reason: Per Protocol Last Admin: 08/27/18 09:46 Dose: 50 mcg/hr, 5 mls/hr Propofol (Diprivan 1000 Mg/100 Ml Inj) 1,000 mg in 100 mls @ 2.88 mls/hr IV.CONT TITRATE PRN; Protocol PRN Reason: Per Protocol Last Admin: 08/27/18 10:19 Dose: 30 mcg/kg/min, 17.28 mls/hr Piperacillin/Tazobactam/Dextrose (Zosyn 3.375 Gm Premix) 50 mls @ 100 mls/hr IV.SIG Q6H [facility] Last Admin: 08/27/18 15:03 Dose: 100 mls/hr Multivitamins 10 ml/ Thiamine HCl 100 mg/ Folic Acid 1 mg/Sodium Chloride 511.2 mls @ 125 mls/hr IV.SIG Q24H [facility] Stop: 08/27/18 21:06 Last Infusion: 08/26/18 21:15 Dose: Infused Magnesium Sulfate 4 gm/ Sodium (Chloride) 100 mls @ 50 mls/hr IV.SIG UNSCH PRN PRN Reason: For Magnesium 0.9 - 1.1 mg/dL Potassium Chloride (Kcl 40 Meq Premix Inj) 40 meq in 100 mls @ 25 mls/hr IV.SIG Q2H PRN PRN Reason: For Potassium 2.8 - 3.2 mEq/L Potassium Chloride (Kcl 20 Meq Premix Inj) 20 meq in 100 mls @ 50 mls/hr IV.SIG Q2H PRN PRN Reason: For Potassium 3.3 - 3.5 mEq/L Potassium Chloride (Kcl 40 Meq Premix Inj) 40 meq in 100 mls @ 25 mls/hr IV.SIG UNSCH PRN PRN Reason: For Potassium 3.3 - 3.5 mEq/L Potassium Chloride (Kcl 20 Meq Premix Inj) 20 meq in 100 mls @ 50 mls/hr IV.SIG Q2H PRN PRN Reason: For Potassium 2.8 - 3.2 mEq/L Potassium Phosphate 30 mmol/ (Sodium Chloride) 260 mls @ 42 mls/hr IV.SIG UNSCH PRN PRN Reason: SEE LABEL COMMENTS Sodium Phosphate 30 mmol/ (Sodium Chloride) 260 mls @ 42 mls/hr IV.SIG UNSCH PRN PRN Reason: For Phosphorus < 2.5 mg/dL Magnesium Sulfate 2 gm/ Sodium (Chloride) 100 mls @ 50 mls/hr IV.SIG UNSCH PRN PRN Reason: For Magnesium 1.2 - 1.6 mg/dL Azithromycin 500 mg/ Sodium (Chloride) 250 mls @ 250 mls/hr IV.SIG Q24H [facility] Stop: 08/30/18 10:59 Last Admin: 08/27/18 10:29 Dose: 250 mls/hr Norepinephrine Bitartrate 16 (mg/ Sodium Chloride) 250 mls @ 1.87 mls/hr IV.CONT TITRATE PRN; Protocol PRN Reason: See Protocol Last Titration: 08/26/18 17:09 Dose: 4 mcg/min, 3.75 mls/hr Insulin Aspart (Novolog Insulin Correctional Sugar Inj) [address] [facility]; Protocol Last Admin: 08/27/18 11:55 Dose: 2 unit Lactobacillus Acidophilus (Lactinex Pkt) [address] [facility] Last Admin: 08/27/18 12:19 Dose: 1 gm Lactulose (Lactulose Liq) 30 ml PO DAILY PRN PRN Reason: SEVERE CONSITIPATION Magnesium Oxide (Mag-Ox) 800 mg PO UNSCH PRN PRN Reason: For Magnesium 1.2 - 1.6 mg/dL Methylprednisolone Sodium Succinate (Solumedrol Inj) [address] [facility] Last Admin: 08/27/18 14:50 Dose: 40 mg Metoprolol Tartrate (Lopressor) [address] [facility] Last Admin: 08/27/18 08:47 Dose: Not Given Miscellaneous Medication () 1 each OROPHARYNG 0000,0400,1200,1600 [facility] Last Admin: 08/27/18 11:37 Dose: 1 each Ondansetron HCl (Zofran Inj) 4 mg IV.PUSH Q6H PRN PRN Reason: NAUSEA OR VOMITING Pantoprazole Sodium (Protonix Inj) [address] [facility] Last Admin: 08/27/18 09:47 Dose: 40 mg Pharmacy Profile Note (Vancomycin Consult Pharmacy) 1 each OTHER UNSCH PRN PRN Reason: Pharmacy to dose Potassium Bicarb/Potassium Chloride (K-Lyte Cl Eff) 50 meq PO UNSCH PRN PRN Reason: For Potassium 3.3 - 3.5 mEq/L Potassium Phosphate (K-Phos Original) 2,000 mg PO Q4H PRN PRN Reason: Phosphorus Less Than 2.5 mg/dL Potassium Phosphate (K-Phos Original) 2,000 mg PO UNSCH PRN PRN Reason: SEE LABEL COMMENTS Senna/Docusate Sodium (Marisa-Colace) [address] [facility] Last Admin: 08/27/18 09:47 Dose: 1 tab Sennosides (Senokot) 17.2 mg PO Q12H PRN PRN Reason: Moderate Constipation Sodium Chloride (Ns Flush) [address] [facility] Last Admin: 08/27/18 09:48 Dose: 2 ml Sodium Chloride (Ns Flush) 2 ml IV.FLUSH PRN PRN PRN Reason: FLUSH AFTER USING IV ACCESS Sodium Chloride (Ns Flush) [address] [facility] Last Admin: 08/27/18 09:48 Dose: 6 ml Terbutaline Sulfate (Brethine Inj) 1 mg SQ UNSCH PRN PRN Reason: For Extravasation Allergies Allergy/AdvReac Type Severity Reaction Status Date / Time amiodarone Allergy Intermediate BLACK LUNGS Verified 11/15/17 10:35 Home Medications Medication Instructions Recorded Confirmed Type apixaban [Eliquis] 5 mg PO BID 08/25/18 08/25/18 History fluticasone-vilanterol [Breo 1 inh INHALATION DAILY 08/25/18 08/25/18 History Ellipta] metoprolol tartrate 12.5 mg PO DAILY 08/25/18 08/25/18 History prednisone 2.5 mg PO Q OTHER DAY 08/25/18 08/25/18 History prednisone 5 mg PO Q OTHER DAY 08/25/18 08/25/18 History Physical Exam Vital signs: Vital Signs 08/26/18 15:10 08/26/18 15:14 08/26/18 15:15 Temperature Pulse Rate 87 84 84 Respiratory Rate Blood Pressure 167/98 H 125/59 L Pulse Oximetry 96 93 L 93 L 08/26/18 15:30 08/26/18 15:45 08/26/18 16:00 Temperature 97.6 F Pulse Rate 77 76 77 Respiratory Rate Blood Pressure 127/68 Pulse Oximetry 92 L 94 L 95 08/26/18 16:04 08/26/18 16:15 08/26/18 16:30 Temperature Pulse Rate 73 73 72 Respiratory Rate Blood Pressure 121/78 Pulse Oximetry 94 L 94 L 94 L 08/26/18 16:45 08/26/18 17:00 08/26/18 17:04 Temperature Pulse Rate 72 71 71 Respiratory Rate Blood Pressure 109/66 Pulse Oximetry 95 95 95 08/26/18 17:15 08/26/18 17:30 08/26/18 17:45 Temperature Pulse Rate 74 67 72 Respiratory Rate 18 Blood Pressure Pulse Oximetry 96 94 L 96 08/26/18 18:00 08/26/18 18:04 08/26/18 18:15 Temperature Pulse Rate 72 72 72 Respiratory Rate Blood Pressure 99/72 L Pulse Oximetry 94 L 94 L 94 L 08/26/18 18:30 08/26/18 18:45 08/26/18 19:00 Temperature Pulse Rate 72 73 72 Respiratory Rate Blood Pressure Pulse Oximetry 94 L 94 L 94 L 08/26/18 19:04 08/26/18 19:15 08/26/18 19:30 Temperature Pulse Rate 74 71 72 Respiratory Rate Blood Pressure 110/68 Pulse Oximetry 94 L 94 L 94 L 08/26/18 19:45 08/26/18 20:00 08/26/18 20:04 Temperature 97.9 F Pulse Rate 73 72 71 Respiratory Rate Blood Pressure 116/71 116/71 Pulse Oximetry 94 L 95 94 L 08/26/18 20:15 08/26/18 20:30 08/26/18 20:45 Temperature Pulse Rate 71 69 73 Respiratory Rate Blood Pressure Pulse Oximetry 97 97 94 L 08/26/18 21:00 08/26/18 21:04 08/26/18 21:15 Temperature Pulse Rate 73 72 74 Respiratory Rate Blood Pressure 114/73 Pulse Oximetry 94 L 94 L 94 L 08/26/18 21:30 08/26/18 21:45 08/26/18 22:00 Temperature Pulse Rate 74 75 72 Respiratory Rate Blood Pressure Pulse Oximetry 94 L 94 L 94 L 08/26/18 22:04 08/26/18 22:15 08/26/18 22:30 Temperature Pulse Rate 72 72 71 Respiratory Rate Blood Pressure 121/59 L Pulse Oximetry 95 95 95 08/26/18 22:45 08/26/18 23:00 08/26/18 23:04 Temperature Pulse Rate 73 74 72 Respiratory Rate 18 Blood Pressure 120/72 Pulse Oximetry 96 96 96 08/26/18 23:15 08/26/18 23:30 08/26/18 23:45 Temperature Pulse Rate 74 72 73 Respiratory Rate Blood Pressure Pulse Oximetry 96 96 96 08/27/18 00:00 08/27/18 00:04 08/27/18 00:15 Temperature 98.5 F Pulse Rate 73 72 72 Respiratory Rate 18 Blood Pressure 121/79 121/79 Pulse Oximetry 96 96 96 08/27/18 00:20 08/27/18 00:30 08/27/18 00:45 Temperature Pulse Rate 71 73 Respiratory Rate 18 Blood Pressure Pulse Oximetry 96 98 97 08/27/18 01:00 08/27/18 01:04 08/27/18 01:15 Temperature Pulse Rate 75 73 73 Respiratory Rate Blood Pressure 113/75 Pulse Oximetry 96 97 97 08/27/18 01:30 08/27/18 01:45 08/27/18 02:00 Temperature Pulse Rate 71 72 72 Respiratory Rate Blood Pressure Pulse Oximetry 97 94 L 95 08/27/18 02:04 08/27/18 02:15 08/27/18 02:30 Temperature Pulse Rate 75 73 71 Respiratory Rate Blood Pressure 103/66 Pulse Oximetry 94 L 95 95 08/27/18 02:45 08/27/18 03:00 08/27/18 03:04 Temperature Pulse Rate 69 70 74 Respiratory Rate 18 Blood Pressure 118/61 Pulse Oximetry 96 96 96 08/27/18 03:15 08/27/18 03:26 08/27/18 03:30 Temperature Pulse Rate 71 69 Respiratory Rate 18 Blood Pressure Pulse Oximetry 96 96 96 08/27/18 03:45 08/27/18 04:00 08/27/18 04:04 Temperature 98.5 F Pulse Rate 68 71 66 Respiratory Rate 18 Blood Pressure 130/67 129/72 Pulse Oximetry 97 97 97 08/27/18 04:15 08/27/18 04:30 08/27/18 04:45 Temperature Pulse Rate 68 68 71 Respiratory Rate Blood Pressure Pulse Oximetry 97 96 95 08/27/18 05:00 08/27/18 05:04 08/27/18 05:15 Temperature Pulse Rate 66 67 68 Respiratory Rate Blood Pressure 117/70 Pulse Oximetry 95 95 95 08/27/18 05:30 08/27/18 05:45 08/27/18 06:00 Temperature Pulse Rate 69 67 69 Respiratory Rate Blood Pressure Pulse Oximetry 95 95 95 08/27/18 06:04 08/27/18 06:15 08/27/18 06:30 Temperature Pulse Rate 70 66 64 Respiratory Rate Blood Pressure 113/82 Pulse Oximetry 95 96 95 08/27/18 06:45 08/27/18 07:00 08/27/18 07:04 Temperature Pulse Rate 65 63 66 Respiratory Rate Blood Pressure 111/77 Pulse Oximetry 96 95 95 08/27/18 07:15 08/27/18 07:30 08/27/18 07:45 Temperature Pulse Rate 63 62 60 Respiratory Rate Blood Pressure Pulse Oximetry 95 95 95 08/27/18 08:00 08/27/18 08:04 08/27/18 08:15 Temperature 97.8 F Pulse Rate 64 65 61 Respiratory Rate Blood Pressure 112/68 111/69 Pulse Oximetry 95 95 95 08/27/18 08:25 08/27/18 08:30 08/27/18 08:45 Temperature Pulse Rate 53 L 64 65 Respiratory Rate 18 Blood Pressure Pulse Oximetry 95 95 96 08/27/18 09:00 08/27/18 09:04 08/27/18 09:15 Temperature Pulse Rate 64 69 69 Respiratory Rate Blood Pressure 113/80 Pulse Oximetry 96 96 96 08/27/18 09:30 08/27/18 09:45 08/27/18 10:00 Temperature Pulse Rate 66 66 66 Respiratory Rate Blood Pressure Pulse Oximetry 96 96 96 08/27/18 10:04 08/27/18 10:15 08/27/18 10:30 Temperature Pulse Rate 69 62 71 Respiratory Rate Blood Pressure 112/68 Pulse Oximetry 94 L 94 L 95 08/27/18 10:45 08/27/18 11:00 08/27/18 11:04 Temperature Pulse Rate 72 67 69 Respiratory Rate Blood Pressure 97/67 L Pulse Oximetry 95 96 95 08/27/18 11:25 08/27/18 13:42 Temperature Pulse Rate 67 Respiratory Rate 18 13 Blood Pressure Pulse Oximetry 96 93 L Intake & Output 08/26/18 08/27/18 08/27/18 18:59 06:59 18:59 Intake Total 3641.2 / 3641.2 2329.2 / 2329.2 400 / 400 Output Total 625 / 625 325 / 325 Balance 3016.2 / 3016.2 2004.2 / 2004.2 400 / 400 Weight 241 lb 13.553 oz Intake: IV 2851.2 / 2851.2 1811.2 / 1811.2 400 / 400 Neosynephrine Inj 160 MG In NS 275 / 275 Inj 484 ML @ 40 MCG/MIN 7.5 mls /hr IV.CONT TITRATE PRN Rx#: [id number] Diprivan 1000 mg/100 ml Inj 1, 200 / 200 200 / 200 100 / 100 000 mg In 100 ml @ 5 MCG/KG/MIN 2.88 mls/hr IV.CONT TITRATE PRN Rx#:[id number] NS Inj 1,000 ML @ 84 mls/hr IV. 1000 / 1000 CONT .[id number] [facility] Rx#: [id number] Azithromycin Inj 500 MG In NS 250 / 250 Inj 250 ML @ 250 mls/hr IV.SIG Q24H [facility] Rx#:[id number] [id number]-12 Inj 10 ML Thiamine Inj 511.2 / 511.2 511.2 / 511.2 100 MG Folvite Inj 1 MG In NS Inj 500 ML @ 125 mls/hr IV.SIG Q24H [facility] Rx#:[id number] Zosyn 3.375 GM Premix 50 ML @ 100 / 100 100 / 100 50 / 50 100 mls/hr IV.SIG Q6H [facility] Rx#: [id number] fentaNYL 10 mcg/mL Premix Drip 250 / 250 2,500 mcg In 250 ml @ 50 MCG/HR 5 mls/hr IV.SIG TITRATE PRN Rx #:[id number] Tube Feeding 510 / 510 458 / 458 Tube Irrigant 220 / 220 Water Bolus Amount 60 / 60 60 / 60 Output: Urine Amount (Catheter) 575 / 575 325 / 325 Indwelling Temp Sensing 575 / 575 325 / 325 Catheter Gastric Drainage 50 / 50 Orogastric Tube 50 / 50 Other: # Bowel Movements 0 Narrative: Intubated, sedated 2+ carotid upstrokes Lungs with few rhonchi Cor irreg Abdomen soft Mild edema - Urinary Catheter Management Indwelling Temp Sensing Catheter Cath placed during this visit: yes Reason for continuing: Hourly intake/output Insertion date: 08/25/18 Insertion time: 14:20 Results 08/27/18 04:15 08/27/18 04:15 Cardiac Enzymes 08/25/18 08/26/18 08/27/18 Range/Units 17:34 04:00 04:15 AST 16 22 (15-37) U/L Troponin I 0.21 H 0.08 H (0.02-0.05) ng/mL Coagulation 08/26/18 Range/Units 04:00 PT 11.9 H (9.8-11.6) sec APTT 42.3 H (23.4-31.7) sec CBC 08/26/18 08/27/18 Range/Units 04:00 04:15 WBC 20.2 H 19.4 H (4.0-11.0) th/mm3 RBC 3.76 L 3.46 L (4.50-5.90) mil/mm3 Hgb 12.1 L 10.9 L (13.0-17.0) gm/dL Hct 35.9 L 33.2 L (39.0-51.0) % Plt Count 192 193 (150-450) th/mm3 Neut # (Auto) 19.0 H 18.1 H (1.8-7.7) th/mm3 Lymph # (Auto) 0.4 L 0.5 L (1.0-4.8) th/mm3 [place] # (Auto) 0.7 0.8 (0.0-0.9) th/mm3 Eos # (Auto) 0.0 0.0 (0.0-0.4) th/mm3 Baso # (Auto) 0.0 0.0 (0.0-0.2) th/mm3 Comprehensive Metabolic Panel 08/26/18 08/26/18 08/27/18 Range/Units 04:00 19:00 04:15 Sodium 140 142 (136-145) meq/L Potassium 3.3 L 4.1 D 4.2 (3.5-5.1) meq/L Chloride 105 D 109 H (98-107) meq/L Carbon Dioxide 26.0 24.0 (21.0-32.0) meq/L BUN 41 H 60 H (7-18) mg/dL Creatinine 1.30 1.40 H (0.60-1.30) mg/dL Calcium 9.0 9.1 (8.5-10.1) mg/dL AST 16 22 (15-37) U/L ALT 22 26 (12-78) U/L Alkaline Phosphatase 71 97 (45-117) U/L Total Protein 6.0 L D 5.8 L (6.4-8.2) g/dL Albumin 1.9 L D 1.6 L (3.4-5.0) g/dL Intake and Output 08/27/18 08/27/18 08/27/18 06:59 14:59 22:59 Intake Total 1668 / 1668 400 / 400 Output Total 325 / 325 Balance 1343 / 1343 400 / 400 Intake: IV 1150 / 1150 400 / 400 Diprivan 1000 mg/100 ml Inj 1, 100 / 100 100 / 100 000 mg In 100 ml @ 5 MCG/KG/MIN 2.88 mls/hr IV.CONT TITRATE PRN Rx#:[id number] NS Inj 1,000 ML @ 84 mls/hr IV. 1000 / [id number] [facility] Rx#: [id number] Zosyn 3.375 GM Premix 50 ML @ 50 / 50 50 / 50 100 mls/hr IV.SIG Q6H [facility] Rx#: [id number] fentaNYL 10 mcg/mL Premix Drip 250 / 250 2,500 mcg In 250 ml @ 50 MCG/HR 5 mls/hr IV.SIG TITRATE PRN Rx #:[id number] Tube Feeding 458 / 458 Water Bolus Amount 60 / 60 Output: Urine Amount (Catheter) 325 / 325 Indwelling Temp Sensing 325 / 325 Catheter Other: Weight 241 lb 13.553 oz - Imaging and Cardiology Imaging: Impressions Abdomen/Bladder Ultrasound 08/25/18 00:00 CONCLUSION: 1. No evidence of hydronephrosis. 2. Bilateral renal cysts, mostly simple, with one cyst demonstrating homogeneous low level echoes, located in the midpole the left kidney and measuring 4 cm. Venous Doppler Study 08/25/18 00:00 CONCLUSION: 1. The study is negative for bilateral lower extremity deep venous thrombosis. Chest X-Ray 08/26/18 00:00 CONCLUSION: Overall no significant change from the prior exam. Diffuse bilateral pulmonary infiltrates particularly on the right remain. Chest X-Ray 08/27/18 06:00 CONCLUSION: 1. No change in bilateral pulmonary opacity. 2. Endotracheal tube tip just above the carin and could be retracted 2 cm. Assessment and Plan - Assessment (1) Atrial fibrillation with rapid ventricular response Code(s): I48.91 - Unspecified atrial fibrillation Status: Acute (2) Acute respiratory failure with hypoxia and hypercapnia Code(s): J96.01 - Acute respiratory failure with hypoxia; J96.02 - Acute respiratory failure with hypercapnia Status: Acute (3) Pneumonia Code(s): J18.9 - Pneumonia, unspecified organism Status: Acute (4) Acute kidney injury Code(s): N17.9 - Acute kidney failure, unspecified Status: Acute (5) Hypertension Code(s): I10 - Essential (primary) hypertension Status: Chronic - Plan Continue ICU care. Echo with EF 45% and RV dilatation and dysfunction. Dx with suspected amio toxicity. Continue rate control of a fib. Recommend full anticoagulation. Continue tx for pneumonia. Monitor renal fx. Wean vent as tolerated. D/w pt's family. (3) Pneumonia Qualifiers: Pneumonia type: due to unspecified organism Laterality: bilateral Lung location: unspecified part of lung Qualified Code(s): J18.9 - Pneumonia, unspecified organism (5) Hypertension Qualifiers: Hypertension type: essential hypertension Qualified Code(s): I10 - Essential (primary) hypertension
[2018-08-27] MEDS: Multivitamin Inj 10 ML, Thiamine Inj 100 MG, Folic Acid Inj 1 MG in Sodium Chlor 0.9% I... IV.SIG SCH (16:57)
--- NOTE | 2018-08-27 19:13 | P.PN ---
Subjective Interval history: Remains on vent support , and on FIO2 40 %. On Pressors. CXR still shows bilateral infiltrates. Output was good. Physical Exam Vital signs: Vital Signs 08/26/18 19:15 08/26/18 19:30 08/26/18 19:45 Temperature Pulse Rate 71 72 73 Respiratory Rate Blood Pressure Pulse Oximetry 94 L 94 L 94 L 08/26/18 20:00 08/26/18 20:04 08/26/18 20:15 Temperature 97.9 F Pulse Rate 72 71 71 Respiratory Rate Blood Pressure 116/71 116/71 Pulse Oximetry 95 94 L 97 08/26/18 20:30 08/26/18 20:45 08/26/18 21:00 Temperature Pulse Rate 69 73 73 Respiratory Rate Blood Pressure Pulse Oximetry 97 94 L 94 L 08/26/18 21:04 08/26/18 21:15 08/26/18 21:30 Temperature Pulse Rate 72 74 74 Respiratory Rate Blood Pressure 114/73 Pulse Oximetry 94 L 94 L 94 L 08/26/18 21:45 08/26/18 22:00 08/26/18 22:04 Temperature Pulse Rate 75 72 72 Respiratory Rate Blood Pressure 121/59 L Pulse Oximetry 94 L 94 L 95 08/26/18 22:15 08/26/18 22:30 08/26/18 22:45 Temperature Pulse Rate 72 71 73 Respiratory Rate Blood Pressure Pulse Oximetry 95 95 96 08/26/18 23:00 08/26/18 23:04 08/26/18 23:15 Temperature Pulse Rate 74 72 74 Respiratory Rate 18 Blood Pressure 120/72 Pulse Oximetry 96 96 96 08/26/18 23:30 08/26/18 23:45 08/27/18 00:00 Temperature 98.5 F Pulse Rate 72 73 73 Respiratory Rate 18 Blood Pressure 121/79 Pulse Oximetry 96 96 96 08/27/18 00:04 08/27/18 00:15 08/27/18 00:20 Temperature Pulse Rate 72 72 Respiratory Rate 18 Blood Pressure 121/79 Pulse Oximetry 96 96 96 08/27/18 00:30 08/27/18 00:45 08/27/18 01:00 Temperature Pulse Rate 71 73 75 Respiratory Rate Blood Pressure Pulse Oximetry 98 97 96 08/27/18 01:04 08/27/18 01:15 08/27/18 01:30 Temperature Pulse Rate 73 73 71 Respiratory Rate Blood Pressure 113/75 Pulse Oximetry 97 97 97 08/27/18 01:45 08/27/18 02:00 08/27/18 02:04 Temperature Pulse Rate 72 72 75 Respiratory Rate Blood Pressure 103/66 Pulse Oximetry 94 L 95 94 L 08/27/18 02:15 08/27/18 02:30 08/27/18 02:45 Temperature Pulse Rate 73 71 69 Respiratory Rate Blood Pressure Pulse Oximetry 95 95 96 08/27/18 03:00 08/27/18 03:04 08/27/18 03:15 Temperature Pulse Rate 70 74 71 Respiratory Rate 18 Blood Pressure 118/61 Pulse Oximetry 96 96 96 08/27/18 03:26 08/27/18 03:30 08/27/18 03:45 Temperature Pulse Rate 69 68 Respiratory Rate 18 Blood Pressure Pulse Oximetry 96 96 97 08/27/18 04:00 08/27/18 04:04 08/27/18 04:15 Temperature 98.5 F Pulse Rate 71 66 68 Respiratory Rate 18 Blood Pressure 130/67 129/72 Pulse Oximetry 97 97 97 08/27/18 04:30 08/27/18 04:45 08/27/18 05:00 Temperature Pulse Rate 68 71 66 Respiratory Rate Blood Pressure Pulse Oximetry 96 95 95 08/27/18 05:04 08/27/18 05:15 08/27/18 05:30 Temperature Pulse Rate 67 68 69 Respiratory Rate Blood Pressure 117/70 Pulse Oximetry 95 95 95 08/27/18 05:45 08/27/18 06:00 08/27/18 06:04 Temperature Pulse Rate 67 69 70 Respiratory Rate Blood Pressure 113/82 Pulse Oximetry 95 95 95 08/27/18 06:15 08/27/18 06:30 08/27/18 06:45 Temperature Pulse Rate 66 64 65 Respiratory Rate Blood Pressure Pulse Oximetry 96 95 96 08/27/18 07:00 08/27/18 07:04 08/27/18 07:15 Temperature Pulse Rate 63 66 63 Respiratory Rate Blood Pressure 111/77 Pulse Oximetry 95 95 95 08/27/18 07:30 08/27/18 07:45 08/27/18 08:00 Temperature Pulse Rate 62 60 64 Respiratory Rate Blood Pressure 112/68 Pulse Oximetry 95 95 95 08/27/18 08:04 08/27/18 08:15 08/27/18 08:25 Temperature 97.8 F Pulse Rate 65 61 53 L Respiratory Rate 18 Blood Pressure 111/69 Pulse Oximetry 95 95 95 08/27/18 08:30 08/27/18 08:45 08/27/18 09:00 Temperature Pulse Rate 64 65 64 Respiratory Rate Blood Pressure Pulse Oximetry 95 96 96 08/27/18 09:04 08/27/18 09:15 08/27/18 09:30 Temperature Pulse Rate 69 69 66 Respiratory Rate Blood Pressure 113/80 Pulse Oximetry 96 96 96 08/27/18 09:45 08/27/18 10:00 08/27/18 10:04 Temperature Pulse Rate 66 66 69 Respiratory Rate Blood Pressure 112/68 Pulse Oximetry 96 96 94 L 08/27/18 10:15 08/27/18 10:30 08/27/18 10:45 Temperature Pulse Rate 62 71 72 Respiratory Rate Blood Pressure Pulse Oximetry 94 L 95 95 08/27/18 11:00 08/27/18 11:04 08/27/18 11:15 Temperature Pulse Rate 67 69 71 Respiratory Rate Blood Pressure 97/67 L Pulse Oximetry 96 95 96 08/27/18 11:25 08/27/18 11:30 08/27/18 11:45 Temperature Pulse Rate 67 68 76 Respiratory Rate 18 Blood Pressure Pulse Oximetry 96 97 97 08/27/18 12:00 08/27/18 12:04 08/27/18 12:15 Temperature Pulse Rate 77 78 73 Respiratory Rate Blood Pressure 112/68 120/84 Pulse Oximetry 97 97 96 08/27/18 12:30 08/27/18 12:45 08/27/18 13:00 Temperature Pulse Rate 76 77 73 Respiratory Rate Blood Pressure Pulse Oximetry 96 96 96 08/27/18 13:04 08/27/18 13:15 08/27/18 13:30 Temperature Pulse Rate 75 76 77 Respiratory Rate Blood Pressure 128/73 Pulse Oximetry 96 95 96 08/27/18 13:42 08/27/18 13:45 08/27/18 14:00 Temperature Pulse Rate 76 80 Respiratory Rate 13 Blood Pressure Pulse Oximetry 93 L 96 96 08/27/18 14:04 08/27/18 14:15 08/27/18 14:30 Temperature Pulse Rate 83 81 80 Respiratory Rate Blood Pressure 145/94 H Pulse Oximetry 96 97 96 08/27/18 14:45 08/27/18 15:00 08/27/18 15:04 Temperature Pulse Rate 81 79 77 Respiratory Rate Blood Pressure 156/96 H Pulse Oximetry 96 96 96 08/27/18 15:15 08/27/18 15:30 08/27/18 15:45 Temperature Pulse Rate 80 80 79 Respiratory Rate Blood Pressure Pulse Oximetry 96 95 95 08/27/18 16:00 08/27/18 16:04 08/27/18 16:10 Temperature Pulse Rate 83 83 77 Respiratory Rate 18 Blood Pressure 112/68 177/93 H Pulse Oximetry 95 95 96 08/27/18 16:15 08/27/18 16:30 08/27/18 16:45 Temperature 98.2 F Pulse Rate 83 77 82 Respiratory Rate Blood Pressure Pulse Oximetry 96 96 95 08/27/18 17:00 08/27/18 17:04 08/27/18 17:15 Temperature Pulse Rate 81 82 79 Respiratory Rate Blood Pressure 145/86 H Pulse Oximetry 96 96 96 08/27/18 17:30 08/27/18 17:45 08/27/18 18:00 Temperature Pulse Rate 84 82 81 Respiratory Rate Blood Pressure Pulse Oximetry 95 95 94 L Intake & Output 08/27/18 08/27/18 08/28/18 06:59 18:59 06:59 Intake Total 2329.2 / 2329.2 2181 / 2181 Output Total 325 / 325 750 / 750 Balance 2004.2 / 2004.2 1431 / 1431 Weight 109.7 kg Intake: IV 1811.2 / 1811.2 1565 / 1565 Diprivan 1000 mg/100 ml Inj 1, 200 / 200 200 / 200 000 mg In 100 ml @ 5 MCG/KG/MIN 2.88 mls/hr IV.CONT TITRATE PRN Rx#:[id number] NS Inj 1,000 ML @ 84 mls/hr IV. 1000 / 1000 CONT .[id number] BRIANNA Rx#: [id number] Azithromycin Inj 500 MG In NS 250 / 250 Inj 250 ML @ 250 mls/hr IV.SIG Q24H [facility] Rx#:[id number] MVI-12 Inj 10 ML Thiamine Inj 511.2 / 511.2 100 MG Folvite Inj 1 MG In NS Inj 500 ML @ 125 mls/hr IV.SIG Q24H [facility] Rx#:[id number] Zosyn 3.375 GM Premix 50 ML @ 100 / 100 100 / 100 100 mls/hr IV.SIG Q6H [facility] Rx#: [id number] Vancomycin Inj 1,500 MG In NS 515 / 515 Inj 500 ML @ 250 mls/hr IV.SIG ONCE ONE Rx#:[id number] fentaNYL 10 mcg/mL Premix Drip 250 / 250 2,500 mcg In 250 ml @ 50 MCG/HR 5 mls/hr IV.SIG TITRATE PRN Rx #:[id number] Tube Feeding 458 / 458 556 / 556 Tube Irrigant 0 / 0 Water Bolus Amount 60 / 60 60 / 60 Output: Urine Amount (Catheter) 325 / 325 700 / 700 Indwelling Temp Sensing 325 / 325 700 / 700 Catheter Gastric Drainage 50 / 50 Orogastric Tube 50 / 50 Other: # Bowel Movements 0 Narrative: Intubated, sedated GENERAL: Elderly W/M SKIN: Warm and dry. HEAD: Atraumatic. Normocephalic. EYES: Pupils equal and round. No scleral icterus. No injection or drainage. ENT: No nasal bleeding or discharge. Mucous membranes pink and moist. NECK: Trachea midline. No JVD. CARDIOVASCULAR: Regular rate and rhythm. RESPIRATORY: No accessory muscle use.Bi basal Crackles. Breath sounds equal bilaterally. GASTROINTESTINAL: Abdomen soft, non-tender, nondistended. Hepatic and splenic margins not palpable. MUSCULOSKELETAL: Extremities without clubbing, cyanosis, or edema. No obvious deformities. NEUROLOGICAL: sedated on the vent PSYCHIATRIC: cannot asses - Urinary Catheter Management Indwelling Temp Sensing Catheter Cath placed during this visit: yes Reason for continuing: Hourly intake/output Insertion date: 08/25/18 Insertion time: 14:20 Results - Labs CBC & Chem 7: 08/27/18 04:15 08/27/18 04:15 Laboratory Results - last 24 hr 08/25/18 08/26/18 08/26/18 10:00 04:00 19:00 WBC RBC Hgb Hct MCV MCH MCHC RDW Plt Count MPV Prelim Diff (Auto) Neut % (Auto) Lymph % (Auto) Traverse % (Auto) Eos % (Auto) Baso % (Auto) Neut # (Auto) Lymph # (Auto) [place]verse # (Auto) Eos # (Auto) Baso # (Auto) WBC Differential Seg Neuts % (Manual) Band Neuts % (Manual) Lymphocytes % (Manual) Monocytes % (Manual) Abs Neuts (Manual) Nucleated RBCs/100 WBC Differential Comment Dohle Bodies Platelet Estimate Platelet Morphology Puncture Site Right radial Patient Temperature 98.6 O2 Saturation 95 ABG pH 7.36 L ABG pCO2 44 H ABG pO2 94 ABG HCO3 25 ABG O2 Content 18.5 ABG Base Excess -0.2 ABG Methemoglobin 1.3 Braxton Test Present Hemoglobin 13.9 Carboxyhemoglobin 1.8 O2 Delivery Device Bipap Vent Setting Ipap 18/[id number] Inspired O2 65 Critical Value No Sodium Potassium 4.1 D Chloride Carbon Dioxide Anion Gap BUN Creatinine Estimated GFR POC Glucose Random Glucose Calcium Phosphorus Magnesium Total Bilirubin AST ALT Alkaline Phosphatase Total Protein Albumin Random Vancomycin M. pneumoniae Interp . Mycoplasma pneumon IgG Positive Mycoplasma pneumon IgM Negative 08/27/18 08/27/18 08/27/18 00:45 04:15 04:15 WBC 19.4 H RBC 3.46 L Hgb 10.9 L Hct 33.2 L MCV 96.0 MCH 31.5 MCHC 32.8 RDW 14.9 Plt Count 193 MPV 9.2 Prelim Diff (Auto) Slide review pending Neut % (Auto) 92.9 H Lymph % (Auto) 2.7 L Traverse % (Auto) 4.2 Eos % (Auto) 0.0 Baso % (Auto) 0.2 Neut # (Auto) 18.1 H Lymph # (Auto) 0.5 L Traverse # (Auto) 0.8 Eos # (Auto) 0.0 Baso # (Auto) 0.0 WBC Differential Manual diff final Seg Neuts % (Manual) 74 H Band Neuts % (Manual) 19 H Lymphocytes % (Manual) 1 L Monocytes % (Manual) 6 Abs Neuts (Manual) 18.0 H Nucleated RBCs/100 WBC 2 H Differential Comment . Dohle Bodies Present H Platelet Estimate Normal Platelet Morphology Enlarged H Puncture Site Patient Temperature O2 Saturation ABG pH ABG pCO2 ABG pO2 ABG HCO3 ABG O2 Content ABG Base Excess ABG Methemoglobin Braxton Test Hemoglobin Carboxyhemoglobin O2 Delivery Device Vent Setting Inspired O2 Critical Value Sodium 142 Potassium 4.2 Chloride 109 H Carbon Dioxide 24.0 Anion Gap 9 BUN 60 H Creatinine 1.40 H Estimated GFR 48 L POC Glucose 206 H Random Glucose 217 H Calcium 9.1 Phosphorus 3.0 Magnesium 2.9 H Total Bilirubin 0.6 AST 22 ALT 26 Alkaline Phosphatase 97 Total Protein 5.8 L Albumin 1.6 L Random Vancomycin 4.5 M. pneumoniae Interp Mycoplasma pneumon IgG Mycoplasma pneumon IgM 08/27/18 08/27/18 08/27/18 06:16 11:43 17:33 WBC RBC Hgb Hct MCV MCH MCHC RDW Plt Count MPV Prelim Diff (Auto) Neut % (Auto) Lymph % (Auto) Traverse % (Auto) Eos % (Auto) Baso % (Auto) Neut # (Auto) Lymph # (Auto) [place]verse # (Auto) Eos # (Auto) Baso # (Auto) WBC Differential Seg Neuts % (Manual) Band Neuts % (Manual) Lymphocytes % (Manual) Monocytes % (Manual) Abs Neuts (Manual) Nucleated RBCs/100 WBC Differential Comment Dohle Bodies Platelet Estimate Platelet Morphology Puncture Site Art line Patient Temperature 98.6 O2 Saturation 97 ABG pH 7.46 H ABG pCO2 30 L ABG pO2 115 ABG HCO3 21 L ABG O2 Content 20.4 H ABG Base Excess -2.6 L ABG Methemoglobin 1.1 Braxton Test Hemoglobin 15.0 Carboxyhemoglobin 1.0 O2 Delivery Device Ventilator Vent Setting See comments Inspired O2 40 Critical Value No Sodium Potassium Chloride Carbon Dioxide Anion Gap BUN Creatinine Estimated GFR POC Glucose 190 H 187 H Random Glucose Calcium Phosphorus Magnesium Total Bilirubin AST ALT Alkaline Phosphatase Total Protein Albumin Random Vancomycin M. pneumoniae Interp Mycoplasma pneumon IgG Mycoplasma pneumon IgM Microbiology 08/25/18 09:45 Blood - Peripheral Aerobic Blood Culture - Preliminary Haemophilus influenzae gram positive cocci 08/25/18 09:45 Blood - Peripheral Anaerobic Blood Culture - Preliminary No growth in 2 days 08/25/18 14:35 Sputum - Endotracheal Gram Stain - Final 08/25/18 14:35 Sputum - Endotracheal Sputum Culture - Final Moderate growth normal respiratory liv 08/25/18 09:40 Blood - Peripheral Aerobic Blood Culture - Preliminary No growth in 2 days 08/25/18 09:40 Blood - Peripheral Anaerobic Blood Culture - Preliminary No growth in 2 days 08/25/18 14:26 Catheterized Urine Urine Culture - Final No growth in 48 hours - Imaging Impressions Chest X-Ray 08/27/18 06:00 CONCLUSION: 1. No change in bilateral pulmonary opacity. 2. Endotracheal tube tip just above the carin and could be retracted 2 cm. Assessment and Plan - Assessment (1) COPD (chronic obstructive pulmonary disease) Code(s): J44.9 - Chronic obstructive pulmonary disease, unspecified Status: Acute (2) Severe sepsis Code(s): A41.9 - Sepsis, unspecified organism; R65.20 - Severe sepsis without septic shock Status: Acute (3) Pneumonia Code(s): J18.9 - Pneumonia, unspecified organism Status: Acute (4) Acute respiratory failure with hypoxia and hypercapnia Code(s): J96.01 - Acute respiratory failure with hypoxia; J96.02 - Acute respiratory failure with hypercapnia Status: Acute (5) Lactic acidosis Code(s): E87.2 - Acidosis Status: Acute (6) Atrial fibrillation with rapid ventricular response Code(s): I48.91 - Unspecified atrial fibrillation Status: Acute (7) Acute kidney injury Code(s): N17.9 - Acute kidney failure, unspecified Status: Acute (8) Chronic steroid use Status: Chronic (9) Hypertension Code(s): I10 - Essential (primary) hypertension Status: Chronic - Plan 1. Will reduce sedation and Pressors 2. Wean vent to CPAP and FIo2 35 % 3. Duoneb nebs q6h 4. CBC,BMP ,CXR in am 5. Continue antibiotics Zithromax and Zosyn 6. Solumedrol IV 40 mg Q8H 7. Continue Eliquis 5 mg BID (3) Pneumonia Qualifiers: Pneumonia type: due to unspecified organism Laterality: bilateral Lung location: unspecified part of lung Qualified Code(s): J18.9 - Pneumonia, unspecified organism (9) Hypertension Qualifiers: Hypertension type: essential hypertension Qualified Code(s): I10 - Essential (primary) hypertension
[2018-08-28] MEDS: Piperacil/Tazo 3.375 GM Premix 50 ML IV.SIG SCH ×4 (03:04→20:32)
[2018-08-28] MEDS: Propofol 1000 mg/100 ml Inj 1,000 MG/100 ML BOTTLE IV.CONT PRN (03:04)
[2018-08-28] MEDS: MethylPREDNISolone Sod Succinate Inj 40 MG/ML Vial IV.PUSH SCH ×3 (05:28→20:31)
[2018-08-28] MEDS: Oral Hygiene Kit OROPHARYNG SCH ×3 (05:29→15:05)
[2018-08-28] MEDS: Chlorhexidine Gluconate 2% 1 Pack (2 Cloths) TOPICAL SCH (05:30)
[2018-08-28 05:34] LABS: Baso % (Auto) 0.1 % (0.0-2.0); Hematocrit 31.8 % (39.0-51.0); Hemoglobin 10.4 gm/dL (13.0-17.0); Lymph # (Auto) 0.8 th/mm3 (1.0-4.8); Lymph % (Auto) 4.7 % (9.0-44.0); Mean Corpuscular HGB Conc 32.8 % (32.0-36.0); Mean Corpuscular Hemoglobin 31.7 pg (27.0-34.0); Mean Corpuscular Volume 96.5 fL (80.0-100.0); Mean Platelet Volume 9.2 fL (7.0-11.0); Mono # (Auto) 1.2 th/mm3 (0.0-0.9); Mono % (Auto) 6.7 % (0.0-8.0); Neut # (Auto) 16.1 th/mm3 (1.8-7.7); Neut % (Auto) 88.5 % (16.0-70.0); Platelet Count 205 th/mm3 (150-450); Red Cell Distribution Width 15.2 % (11.6-17.2); White Blood Count 18.2 th/mm3 (4.0-11.0)
[2018-08-28 06:04] LABS: Alanine Aminotransferase 25 U/L (12-78); Albumin 1.6 g/dL (3.4-5.0); Alkaline Phosphatase 106 U/L (45-117); Anion Gap 13 meq/L (5-15); Aspartate Aminotransferase 20 U/L (15-37); Blood Urea Nitrogen 82 mg/dL (7-18); Calcium 8.6 mg/dL (8.5-10.1); Carbon Dioxide 21.2 meq/L (21.0-32.0); Chloride 112 meq/L (98-107); Glomerular Filtration Rate 42 mL/min (>89); Glucose,Random 226 mg/dL (74-106); Magnesium 2.9 mg/dL (1.5-2.5); Potassium 4.2 meq/L (3.5-5.1); Sodium 146 meq/L (136-145); Total Protein 5.5 g/dL (6.4-8.2); Vancomycin,Random 15.1 Comment
[2018-08-28 06:56] LABS: Lymphocytes 7 % (9-44); Metamyelocytes 2 % (0-1); Monocytes 7 % (0-8); Myelocytes 1 % (0-0); Platelet Estimate Normal (Normal); Platelet Morphology Normal (Normal); Tallied Nucleated RBC 2 (0-0); Toxic Granulation 1+
[2018-08-28] MEDS: Insulin NovoLOG Aspart Correctional Sugar Inj SQ SCH ×3 (07:26→18:44)
[2018-08-28] MEDS ORDERED: Albumin Human 25% Inj 50 ML IV.SIG ONE (08:36)
[2018-08-28] MEDS ORDERED: Vancomycin Consult Pharmacy OTHER PRN (08:41)
--- NOTE | 2018-08-28 08:49 | P.PNCC ---
Subjective Subjective Remarks/Hospital Course: This is an 83-year-old male. Date of admission 08/25/2018. Past medical includes atrial fibrillation with history of cardioversion, chronic apixaban use, hypertension, hyperlipidemia, trigeminal neuralgia/hard of hearing : Bilateral hearing aids. For the past 4 days, patient been increasing short of breath increased malaise. Denies any sick contacts or recent travels. Unknown influenza status. Patient is to [facility] with worsening shortness of breath. Complains of pleuritic and musculoskeletal chest pain. Patient also has a prior history of tobacco abuse times 50 years quit 15 years ago. Patient called EMS for evaluation due to acute shortness of breath. Upon arrival, patient was noted to be in a rapid heart rate in the 150s. Patient was given acute bronchodilator therapy and started on a lidocaine drip for possible V. tach. Patient was transported to [facility] for further evaluation treatment. Upon arrival, patient was noted to be in A. fib with RVR. Chest x-ray revealed bilateral infiltrates right greater than left. Patient was placed on BiPAP therapy with some improvement. Patient received ceftriaxone and azithromycin. 3 L normal saline. Patient remained somewhat hypotensive. Patient a lactate of 5.1. Troponin 0 0.27. Patient was transported to [facility]. On arrival, patient increasingly short of breath. Required intubation with central line placement and arterial line placement. SUBJECTIVE: 08/26: Currently resting in bed intubated requiring mechanical ventilation. Arousable and does follow commands but heart rate much better controlled rate. No acute findings overnight. Leukocytosis slightly worsened. Potassium replaced currently. Arousable and does follow commands. at bedside and updated Wilma. 08/27: Patient on low-dose (2 mcg) levo overnight, off since this morning. Low urine output over the past 24 hours. HR well-controlled in 70s-80s. 08/28: Patient tolerated PST yesterday afternoon, placed back on AC overnight to rest. Urine output improved with lasix/ Chavez was noted to be clogged with sediment and replaced. No new issues. Objective Vital Signs / I&O: Vital Signs 08/27/18 08:45 08/27/18 09:00 08/27/18 09:04 Temperature Pulse Rate 65 64 69 Respiratory Rate Blood Pressure 113/80 Pulse Oximetry 96 96 96 08/27/18 09:15 08/27/18 09:30 08/27/18 09:45 Temperature Pulse Rate 69 66 66 Respiratory Rate Blood Pressure Pulse Oximetry 96 96 96 08/27/18 10:00 08/27/18 10:04 08/27/18 10:15 Temperature Pulse Rate 66 69 62 Respiratory Rate Blood Pressure 112/68 Pulse Oximetry 96 94 L 94 L 08/27/18 10:30 08/27/18 10:45 08/27/18 11:00 Temperature Pulse Rate 71 72 67 Respiratory Rate Blood Pressure Pulse Oximetry 95 95 96 08/27/18 11:04 08/27/18 11:15 08/27/18 11:25 Temperature Pulse Rate 69 71 67 Respiratory Rate 18 Blood Pressure 97/67 L Pulse Oximetry 95 96 96 08/27/18 11:30 08/27/18 11:45 08/27/18 12:00 Temperature Pulse Rate 68 76 77 Respiratory Rate Blood Pressure 112/68 Pulse Oximetry 97 97 97 08/27/18 12:04 08/27/18 12:15 08/27/18 12:30 Temperature Pulse Rate 78 73 76 Respiratory Rate Blood Pressure 120/84 Pulse Oximetry 97 96 96 08/27/18 12:45 08/27/18 13:00 08/27/18 13:04 Temperature Pulse Rate 77 73 75 Respiratory Rate Blood Pressure 128/73 Pulse Oximetry 96 96 96 08/27/18 13:15 08/27/18 13:30 08/27/18 13:42 Temperature Pulse Rate 76 77 Respiratory Rate 13 Blood Pressure Pulse Oximetry 95 96 93 L 08/27/18 13:45 08/27/18 14:00 08/27/18 14:04 Temperature Pulse Rate 76 80 83 Respiratory Rate Blood Pressure 145/94 H Pulse Oximetry 96 96 96 08/27/18 14:15 08/27/18 14:30 08/27/18 14:45 Temperature Pulse Rate 81 80 81 Respiratory Rate Blood Pressure Pulse Oximetry 97 96 96 08/27/18 15:00 08/27/18 15:04 08/27/18 15:15 Temperature Pulse Rate 79 77 80 Respiratory Rate Blood Pressure 156/96 H Pulse Oximetry 96 96 96 08/27/18 15:30 08/27/18 15:45 08/27/18 16:00 Temperature Pulse Rate 80 79 83 Respiratory Rate Blood Pressure 112/68 Pulse Oximetry 95 95 95 08/27/18 16:04 08/27/18 16:10 08/27/18 16:15 Temperature 98.2 F Pulse Rate 83 77 83 Respiratory Rate 18 Blood Pressure 177/93 H Pulse Oximetry 95 96 96 08/27/18 16:30 08/27/18 16:45 08/27/18 17:00 Temperature Pulse Rate 77 82 81 Respiratory Rate Blood Pressure Pulse Oximetry 96 95 96 08/27/18 17:04 08/27/18 17:15 08/27/18 17:30 Temperature Pulse Rate 82 79 84 Respiratory Rate Blood Pressure 145/86 H Pulse Oximetry 96 96 95 08/27/18 17:45 08/27/18 18:00 08/27/18 18:15 Temperature Pulse Rate 82 81 78 Respiratory Rate Blood Pressure Pulse Oximetry 95 94 L 94 L 08/27/18 18:30 08/27/18 18:45 08/27/18 19:00 Temperature Pulse Rate 74 74 69 Respiratory Rate Blood Pressure Pulse Oximetry 93 L 94 L 94 L 08/27/18 19:04 08/27/18 19:15 08/27/18 19:29 Temperature Pulse Rate 75 68 64 Respiratory Rate 18 Blood Pressure 105/61 Pulse Oximetry 94 L 94 L 94 L 08/27/18 19:30 08/27/18 19:45 08/27/18 20:00 Temperature 97.7 F Pulse Rate 66 69 71 Respiratory Rate Blood Pressure 112/68 Pulse Oximetry 94 L 96 94 L 08/27/18 20:04 08/27/18 20:15 08/27/18 20:30 Temperature Pulse Rate 69 67 73 Respiratory Rate Blood Pressure 99/60 L Pulse Oximetry 94 L 94 L 97 08/27/18 20:45 08/27/18 21:00 08/27/18 21:04 Temperature Pulse Rate 66 67 67 Respiratory Rate 18 18 18 Blood Pressure 94/63 L Pulse Oximetry 94 L 94 L 94 L 08/27/18 21:15 08/27/18 21:30 08/27/18 21:45 Temperature Pulse Rate 65 68 68 Respiratory Rate 18 16 18 Blood Pressure Pulse Oximetry 97 95 95 08/27/18 22:00 08/27/18 22:04 08/27/18 22:15 Temperature Pulse Rate 67 69 72 Respiratory Rate Blood Pressure 98/62 L Pulse Oximetry 95 95 95 08/27/18 22:30 08/27/18 22:45 08/27/18 23:00 Temperature 97.7 F Pulse Rate 67 67 68 Respiratory Rate Blood Pressure Pulse Oximetry 95 94 L 94 L 08/27/18 23:04 08/27/18 23:15 08/27/18 23:30 Temperature 97.8 F Pulse Rate 70 70 71 Respiratory Rate Blood Pressure 113/70 Pulse Oximetry 95 94 L 94 L 08/27/18 23:36 08/27/18 23:39 08/28/18 00:00 Temperature Pulse Rate 69 78 69 Respiratory Rate 18 Blood Pressure 112/68 Pulse Oximetry 94 L 08/28/18 00:04 08/28/18 00:30 08/28/18 01:00 Temperature 99.6 F Pulse Rate 69 66 Respiratory Rate 18 18 Blood Pressure 92/52 L 91/61 L Pulse Oximetry 94 L 94 L 08/28/18 01:04 08/28/18 02:00 08/28/18 03:00 Temperature Pulse Rate 68 68 Respiratory Rate 18 18 18 Blood Pressure 111/68 Pulse Oximetry 95 95 95 08/28/18 03:28 08/28/18 04:00 08/28/18 04:05 Temperature 97.6 F Pulse Rate 66 73 Respiratory Rate 18 18 18 Blood Pressure 110/71 Pulse Oximetry 95 95 08/28/18 05:00 08/28/18 05:04 08/28/18 06:00 Temperature Pulse Rate 67 69 66 Respiratory Rate 18 Blood Pressure 125/62 Pulse Oximetry 95 96 96 08/28/18 07:00 08/28/18 08:32 Temperature Pulse Rate 66 68 Respiratory Rate 18 Blood Pressure 127/79 Pulse Oximetry 96 Intake & Output 08/27/18 08/28/18 08/28/18 18:59 06:59 18:59 Intake Total 2181 / 2181 2853.2 / 2853.2 Output Total 750 / 750 850 / 850 Balance 1431 / 1431 2002.2 / 2002.2 Weight 107.6 kg Intake: IV 1565 / 1565 1811.2 / 1811.2 Diprivan 1000 mg/100 ml Inj 1, 200 / 200 200 / 200 000 mg In 100 ml @ 5 MCG/KG/MIN 2.88 mls/hr IV.CONT TITRATE PRN Rx#:[id number] NS Inj 1,000 ML @ 84 mls/hr IV. 1000 / 1000 CONT .[id number] [facility] Rx#: [id number] Azithromycin Inj 500 MG In NS 250 / 250 Inj 250 ML @ 250 mls/hr IV.SIG Q24H [facility] Rx#:[id number] Inj 10 ML Thiamine Inj 511.2 / 511.2 100 MG Folvite Inj 1 MG In NS Inj 500 ML @ 125 mls/hr IV.SIG Q24H [facility] Rx#:[id number] Zosyn 3.375 GM Premix 50 ML @ 100 / 100 100 / 100 100 mls/hr IV.SIG Q6H [facility] Rx#: [id number] Vancomycin Inj 1,500 MG In NS 515 / 515 Inj 500 ML @ 250 mls/hr IV.SIG ONCE ONE Rx#:[id number] 10 mcg/mL Premix Drip 250 / 250 2,500 mcg In 250 ml @ 50 MCG/HR 5 mls/hr IV.SIG TITRATE PRN Rx #:[id number] Tube Feeding 556 / 556 982 / 982 Tube Irrigant 0 / 0 0 / 0 Water Bolus Amount 60 / 60 60 / 60 Output: Urine 850 / 850 Urine Amount (Catheter) 700 / 700 Indwelling Temp Sensing 700 / 700 Catheter Gastric Drainage 50 / 50 Orogastric Tube 50 / 50 Other: # Bowel Movements 0 0 Result Diagrams: 08/28/18 05:00 08/28/18 05:00 Objective Remarks: GENERAL: Well-appearing, intubated and sedated, no acute distress SKIN: Warm and dry. HEENT: NCAT, PERRL NECK: Trachea midline. No JVD. Left IJ CVL is clean dry and intact CARDIOVASCULAR: Irregular, regular rate RESPIRATORY: Diminished breath sounds at bases bilaterally GASTROINTESTINAL: Abdomen soft, non-tender, nondistended. MUSCULOSKELETAL: 1-2+ pitting edema to bilateral lower extremities, trace to 1+ in upper extremities NEUROLOGICAL: RASS -1 to -2 on sedation Assessment and Plan - Assessment and Plan Plan: Neuro/Psych: Hard of hearing Patient's sedation currently on hold for spontaneous breathing trial Acetaminophen 650 mg by tube every 6 hours as needed fever CV: Atrial fibrillation with rapid ventricular response currently rate controlled Elevated troponin History of essential hypertension Hyperlipidemia Lactic acidosis Trop 0.27 on admission, most recent 0.08, no longer trending Echo: EF 45%, RV enlargement/ dysfunction, PAP 38 mm Hg Metoprolol tartrate 25 mg twice daily/hold if heart rate less than 65, systolic blood pressure less than 110 or vasopressors. 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 [facility] 5/1.11/17/64 Ventilator bundle Albuterol/ipratropium aerosols every 4 hours with albuterol aerosols every 2 hours as needed dyspnea Add fluticasone/Vilanterol 200/25 1 inhalation daily Wean methylprednisolone succinate 40 mg q8h --> q12h Head of bed at 30 degrees Pulmonology consultation appreciated Spontaneous breathing trial today, patient did well on SBT yesterday afternoon, can hopefully be extubated today or tomorrow GI: Hypoalbuminemia Elevated total bilirubin NG tube placement Start on tube feeding Glucerna 1.5 at 55 cc an hour goal Pantoprazole for GI prophylaxis Docusate sodium/senna 1 tablet twice daily for bowel regimen : Chavez catheter for accurate I's and O's in a critical patient Endo: Acute hyperglycemia Chronic steroid use Low TSH Sliding scale insulin aspart insulin to maintain euglycemia/moderate regimen Every 6 hours TSH was 0.094, normal T4, T3 low-- would recheck in 4 weeks after critical illness has resolved On steroids as noted above Renal: Elevated creatinine question acute kidney injury normalizing Creat trending up slight to 1.59, urine output improved to 0.6 cc/kg/hr, edematous on exam, will give a dose of concentrated albumin/ lasix today No urine eosinophils noted Renal ultrasound - bilateral renal cyst. Possible hemorrhagic left renal cyst Avoid nephrotoxic medication Monitor urine output Accurate I's and O's Heme: Leukocytosis- improving Monitor CBC daily ID: Community acquired pneumonia Received rote ceftriaxone and azithromycin in ED Currently on vancomycin/piperacillin/tazobactam and azithromycin day #4 Blood cultures from 08/25 grew Haemophilis and GPCs, awaiting ID of GPCs before narrowing antibiotics Repeat blood cultures sent yesterday, pending Sputum and urine cultures no growth to date Flu and MRSA swabs negative Legionella and pneumococcus negative MSK: Elevated BMI PT evaluate and treat Weight loss encouraged FEN: Hypokalemia ICU electrolyte protocol Access -Utilize left IJ CVL day #4 -Utilize right femoral arterial line day #3 * If extubated today, can d/c both -Maintain Chavez catheter as patient is being diuresed and has mild WESLEY, needs accurate Is and Os Prophylaxis -GI -pantoprazole -DVT -SCD/apixaban Level 2 follow up To help prompt me to consider important information that might be impacting today's encounter and assessment, information from prior notes written by myself or my colleagues may have been "brought forward" into today's note. My signature on this note, however, is an attestation that I personally performed the exam, history, and/or decision-making noted today, and, unless otherwise indicated, the interactions with patient, family, and staff as well as the review of records all occurred today. I also attest that the listed assessment and stated plan reflect my best clinical judgment today based on the combination of historical information, prior notes, and today's exam/ interactions. Code Status: Full
[2018-08-28] MEDS ORDERED: Vancomycin Inj 1,500 MG in Sodium Chlor 0.9% Inj 500 ML IV.SIG SCH (09:00)
[2018-08-28] MEDS: Chlorhexidine 0.12% Oral Kit 15 ML UDC OROPHARYNG SCH ×2 (11:08→19:49)
[2018-08-28] MEDS: Artificial Tears Opth Drops 15 ML Bottle EACH EYE SCH ×2 (11:08→15:11)
[2018-08-28] MEDS: Pantoprazole Inj 40 MG Vial IV.PUSH SCH (11:09)
[2018-08-28] MEDS: Metoprolol Tartrate 25 MG Tablet PO SCH ×2 (11:09→23:38)
[2018-08-28] MEDS: Senna/Docusate Sodium 8.6/50 MG Tablet PO SCH ×2 (11:09→23:38)
[2018-08-28] MEDS: Azithromycin Inj 500 MG in Sodium Chlor 0.9% Inj 250 ML IV.SIG SCH (11:11)
[2018-08-28] MEDS: Vancomycin Inj 1,500 MG in Sodium Chlor 0.9% Inj 500 ML IV.SIG SCH (11:12)
[2018-08-28] MEDS: hydrALAZINE HCl Inj 20 MG/ML Vial IV.PUSH PRN ×3 (11:12→20:31)
--- NOTE | 2018-08-28 15:06 | P.PNCA ---
Subjective Interval history: Intubated, sedated, on the vent Medications and Allergies Active Medications: Active Medications Acetaminophen (Tylenol) 650 mg PO Q6H PRN PRN Reason: PAIN 1-10 AND/OR FEVER >101F Al Hydroxide/Mg Hydroxide (Milk Of [place] Liq) 30 ml PO Q12H PRN PRN Reason: Mild Constipation Albuterol (Albuterol Neb (Prn)) 2.5 mg NEB Q2HR NEB PRN PRN Reason: SHORTNESS OF BREATH/WHEEZING Albuterol (Duoneb Neb ([facility])) 1 ampul NEB Q4HR NEB [facility] Last Admin: 08/28/18 12:11 Dose: 1 ampul Apixaban (Eliquis) 5 mg PO BID [facility] Last Admin: 08/28/18 11:09 Dose: 5 mg Artificial Tears (Tears Naturale Opth Drops) 1 drop EACH EYE Q8H [facility] Last Admin: 08/28/18 11:08 Dose: 1 drop Bisacodyl (Dulcolax Supp) 10 mg RECTAL DAILY PRN PRN Reason: SEVERE CONSITIPATION Chlorhexidine Gluconate (Chlorhexidine 2% Cloth) 3 pack TOPICAL DAILY@0400 [facility] Stop: 08/31/18 03:59 Last Admin: 08/28/18 05:30 Dose: 3 pack Chlorhexidine Gluconate (Chlorhexidine 2% Cloth) 3 pack TOPICAL DAILY@0400 PRN PRN Reason: Extra cloth needed Stop: 08/31/18 03:59 Chlorhexidine Gluconate (Peridex 0.12% Oral Kit) 15 ml OROPHARYNG BID@0800, 2000 [facility] Last Admin: 08/28/18 11:08 Dose: 15 ml Dextrose (D50w Vial) 50 ml IV.PUSH UNSCH PRN PRN Reason: PER HYPOGLYCEMIA PROTOCOL Fluticasone/Vilanterol (Breo Ellipta 200/25 Mcg Inh) 2 puff INH DAILY [facility] Last Admin: 08/27/18 08:47 Dose: Not Given Glucagon (Glucagon Inj) 1 mg OTHER PRN PRN PRN Reason: for Hypoglycemia Protocol Hydralazine HCl (Apresoline Inj) 20 mg IV.PUSH Q4H PRN PRN Reason: SBP>180, DBP>110 Last Admin: 08/28/18 11:12 Dose: 20 mg Fentanyl (Fentanyl 10 Mcg/Ml Premix Drip) 2,500 mcg in 250 mls @ 5 mls/hr IV.SIG TITRATE PRN; Protocol PRN Reason: Per Protocol Last Admin: 08/27/18 09:46 Dose: 50 mcg/hr, 5 mls/hr Propofol (Diprivan 1000 Mg/100 Ml Inj) 1,000 mg in 100 mls @ 2.88 mls/hr IV.CONT TITRATE PRN; Protocol PRN Reason: Per Protocol Last Admin: 08/28/18 03:04 Dose: 30 mcg/kg/min, 17.28 mls/hr Piperacillin/Tazobactam/Dextrose (Zosyn 3.375 Gm Premix) 50 mls @ 100 mls/hr IV.SIG Q6H [facility] Last Admin: 08/28/18 09:00 Dose: 100 mls/hr Magnesium Sulfate 4 gm/ Sodium (Chloride) 100 mls @ 50 mls/hr IV.SIG UNSCH PRN PRN Reason: For Magnesium 0.9 - 1.1 mg/dL Potassium Chloride (Kcl 40 Meq Premix Inj) 40 meq in 100 mls @ 25 mls/hr IV.SIG Q2H PRN PRN Reason: For Potassium 2.8 - 3.2 mEq/L Potassium Chloride (Kcl 20 Meq Premix Inj) 20 meq in 100 mls @ 50 mls/hr IV.SIG Q2H PRN PRN Reason: For Potassium 3.3 - 3.5 mEq/L Potassium Chloride (Kcl 40 Meq Premix Inj) 40 meq in 100 mls @ 25 mls/hr IV.SIG UNSCH PRN PRN Reason: For Potassium 3.3 - 3.5 mEq/L Potassium Chloride (Kcl 20 Meq Premix Inj) 20 meq in 100 mls @ 50 mls/hr IV.SIG Q2H PRN PRN Reason: For Potassium 2.8 - 3.2 mEq/L Potassium Phosphate 30 mmol/ (Sodium Chloride) 260 mls @ 42 mls/hr IV.SIG UNSCH PRN PRN Reason: SEE LABEL COMMENTS Sodium Phosphate 30 mmol/ (Sodium Chloride) 260 mls @ 42 mls/hr IV.SIG UNSCH PRN PRN Reason: For Phosphorus < 2.5 mg/dL Magnesium Sulfate 2 gm/ Sodium (Chloride) 100 mls @ 50 mls/hr IV.SIG UNSCH PRN PRN Reason: For Magnesium 1.2 - 1.6 mg/dL Azithromycin 500 mg/ Sodium (Chloride) 250 mls @ 250 mls/hr IV.SIG Q24H [facility] Stop: 08/30/18 10:59 Last Admin: 08/28/18 11:11 Dose: 250 mls/hr Vancomycin HCl 1,500 mg/ (Sodium Chloride) 515 mls @ 250 mls/hr IV.SIG Q24H [facility] Last Admin: 08/28/18 11:12 Dose: 250 mls/hr Insulin Aspart (Novolog Insulin Correctional Sugar Inj) 0 unit SQ Q6HR [facility]; Protocol Last Admin: 08/28/18 12:54 Dose: 4 unit Lactobacillus Acidophilus (Lactinex Pkt) 1 gm PO TID [facility] Last Admin: 08/28/18 11:09 Dose: 1 gm Lactulose (Lactulose Liq) 30 ml PO DAILY PRN PRN Reason: SEVERE CONSITIPATION Magnesium Oxide (Mag-Ox) 800 mg PO UNSCH PRN PRN Reason: For Magnesium 1.2 - 1.6 mg/dL Methylprednisolone Sodium Succinate (Solumedrol Inj) 40 mg IV.PUSH Q12HR [facility] Last Admin: 08/28/18 11:10 Dose: 40 mg Metoprolol Tartrate (Lopressor) 25 mg PO BID [facility] Last Admin: 08/28/18 11:09 Dose: 25 mg Miscellaneous Information ([facility] Ordered Lab Info) 0 each OTHER ONCE ONE Stop: 08/31/18 10:46 Miscellaneous Medication () 1 each OROPHARYNG 0000,0400,1200,1600 [facility] Last Admin: 08/28/18 12:54 Dose: 1 each Ondansetron HCl (Zofran Inj) 4 mg IV.PUSH Q6H PRN PRN Reason: NAUSEA OR VOMITING Pantoprazole Sodium (Protonix Inj) 40 mg IV.PUSH DAILY [facility] Last Admin: 08/28/18 11:09 Dose: 40 mg Pharmacy Profile Note (Vancomycin Consult Pharmacy) 1 each OTHER UNSCH PRN PRN Reason: Pharmacy to dose Potassium Bicarb/Potassium Chloride (K-Lyte Cl Eff) 50 meq PO UNSCH PRN PRN Reason: For Potassium 3.3 - 3.5 mEq/L Potassium Phosphate (K-Phos Original) 2,000 mg PO Q4H PRN PRN Reason: Phosphorus Less Than 2.5 mg/dL Potassium Phosphate (K-Phos Original) 2,000 mg PO UNSCH PRN PRN Reason: SEE LABEL COMMENTS Senna/Docusate Sodium (Marisa-Colace) 1 tab PO BID [facility] Last Admin: 08/28/18 11:09 Dose: 1 tab Sennosides (Senokot) 17.2 mg PO Q12H PRN PRN Reason: Moderate Constipation Sodium Chloride (Ns Flush) 2 ml IV.FLUSH BID [facility] Last Admin: 08/28/18 11:09 Dose: 2 ml Sodium Chloride (Ns Flush) 2 ml IV.FLUSH PRN PRN PRN Reason: FLUSH AFTER USING IV ACCESS Sodium Chloride (Ns Flush) 0 ml IV.FLUSH DAILY [facility] Last Admin: 08/28/18 11:09 Dose: Not Given Allergies Allergy/AdvReac Type Severity Reaction Status Date / Time amiodarone Allergy Intermediate BLACK LUNGS Verified 11/15/17 10:35 Home Medications Medication Instructions Recorded Confirmed Type apixaban [Eliquis] 5 mg PO BID 08/25/18 08/25/18 History fluticasone-vilanterol [Breo 1 inh INHALATION DAILY 08/25/18 08/25/18 History Ellipta] metoprolol tartrate 12.5 mg PO DAILY 08/25/18 08/25/18 History prednisone 2.5 mg PO Q OTHER DAY 08/25/18 08/25/18 History prednisone 5 mg PO Q OTHER DAY 08/25/18 08/25/18 History Physical Exam Vital signs: Vital Signs 08/27/18 15:04 08/27/18 15:15 08/27/18 15:30 Temperature Pulse Rate 77 80 80 Respiratory Rate Blood Pressure 156/96 H Pulse Oximetry 96 96 95 08/27/18 15:45 08/27/18 16:00 08/27/18 16:04 Temperature Pulse Rate 79 83 83 Respiratory Rate Blood Pressure 112/68 177/93 H Pulse Oximetry 95 95 95 08/27/18 16:10 08/27/18 16:15 08/27/18 16:30 Temperature 98.2 F Pulse Rate 77 83 77 Respiratory Rate 18 Blood Pressure Pulse Oximetry 96 96 96 08/27/18 16:45 08/27/18 17:00 08/27/18 17:04 Temperature Pulse Rate 82 81 82 Respiratory Rate Blood Pressure 145/86 H Pulse Oximetry 95 96 96 08/27/18 17:15 08/27/18 17:30 08/27/18 17:45 Temperature Pulse Rate 79 84 82 Respiratory Rate Blood Pressure Pulse Oximetry 96 95 95 08/27/18 18:00 08/27/18 18:15 08/27/18 18:30 Temperature Pulse Rate 81 78 74 Respiratory Rate Blood Pressure Pulse Oximetry 94 L 94 L 93 L 08/27/18 18:45 08/27/18 19:00 08/27/18 19:04 Temperature Pulse Rate 74 69 75 Respiratory Rate Blood Pressure 105/61 Pulse Oximetry 94 L 94 L 94 L 08/27/18 19:15 08/27/18 19:29 08/27/18 19:30 Temperature Pulse Rate 68 64 66 Respiratory Rate 18 Blood Pressure Pulse Oximetry 94 L 94 L 94 L 08/27/18 19:45 08/27/18 20:00 08/27/18 20:04 Temperature 97.7 F Pulse Rate 69 71 69 Respiratory Rate Blood Pressure 112/68 99/60 L Pulse Oximetry 96 94 L 94 L 08/27/18 20:15 08/27/18 20:30 08/27/18 20:45 Temperature Pulse Rate 67 73 66 Respiratory Rate 18 Blood Pressure Pulse Oximetry 94 L 97 94 L 08/27/18 21:00 08/27/18 21:04 08/27/18 21:15 Temperature Pulse Rate 67 67 65 Respiratory Rate 18 18 18 Blood Pressure 94/63 L Pulse Oximetry 94 L 94 L 97 08/27/18 21:30 08/27/18 21:45 08/27/18 22:00 Temperature Pulse Rate 68 68 67 Respiratory Rate 16 18 Blood Pressure Pulse Oximetry 95 95 95 08/27/18 22:04 08/27/18 22:15 08/27/18 22:30 Temperature Pulse Rate 69 72 67 Respiratory Rate Blood Pressure 98/62 L Pulse Oximetry 95 95 95 08/27/18 22:45 08/27/18 23:00 08/27/18 23:04 Temperature 97.7 F Pulse Rate 67 68 70 Respiratory Rate Blood Pressure 113/70 Pulse Oximetry 94 L 94 L 95 08/27/18 23:15 08/27/18 23:30 08/27/18 23:36 Temperature 97.8 F Pulse Rate 70 71 69 Respiratory Rate 18 Blood Pressure Pulse Oximetry 94 L 94 L 08/27/18 23:39 08/28/18 00:00 08/28/18 00:04 Temperature Pulse Rate 78 69 Respiratory Rate Blood Pressure 112/68 92/52 L Pulse Oximetry 94 L 08/28/18 00:30 08/28/18 01:00 08/28/18 01:04 Temperature 99.6 F Pulse Rate 69 66 Respiratory Rate 18 18 18 Blood Pressure 91/61 L Pulse Oximetry 94 L 94 L 95 08/28/18 02:00 08/28/18 03:00 08/28/18 03:28 Temperature Pulse Rate 68 68 66 Respiratory Rate 18 18 18 Blood Pressure 111/68 Pulse Oximetry 95 95 08/28/18 04:00 08/28/18 04:05 08/28/18 05:00 Temperature 97.6 F Pulse Rate 73 67 Respiratory Rate 18 18 18 Blood Pressure 110/71 Pulse Oximetry 95 95 95 08/28/18 05:04 08/28/18 06:00 08/28/18 07:00 Temperature Pulse Rate 69 66 66 Respiratory Rate Blood Pressure 125/62 127/79 Pulse Oximetry 96 96 96 08/28/18 08:00 08/28/18 08:04 08/28/18 08:09 Temperature 97.8 F Pulse Rate 66 68 80 Respiratory Rate Blood Pressure 112/68 145/90 H 162/99 H Pulse Oximetry 96 96 96 08/28/18 08:32 08/28/18 09:00 08/28/18 09:04 Temperature Pulse Rate 68 80 84 Respiratory Rate 18 Blood Pressure 178/106 H Pulse Oximetry 96 96 08/28/18 09:08 08/28/18 09:14 08/28/18 10:00 Temperature Pulse Rate 84 90 87 Respiratory Rate 18 Blood Pressure 202/91 H 170/86 H Pulse Oximetry 96 96 94 L 08/28/18 10:04 08/28/18 11:00 08/28/18 11:04 Temperature Pulse Rate 87 84 93 H Respiratory Rate Blood Pressure 173/95 H 193/102 H Pulse Oximetry 95 96 96 08/28/18 11:11 08/28/18 11:18 08/28/18 11:28 Temperature Pulse Rate 84 94 H 95 H Respiratory Rate Blood Pressure 146/71 H 146/82 H 160/76 H Pulse Oximetry 96 95 95 08/28/18 11:43 08/28/18 11:58 08/28/18 12:00 Temperature 98.8 F Pulse Rate 91 H 90 88 Respiratory Rate Blood Pressure 147/69 H 154/72 H 112/68 Pulse Oximetry 95 96 96 08/28/18 12:13 08/28/18 12:28 08/28/18 12:43 Temperature Pulse Rate 89 91 H 96 H Respiratory Rate 26 H Blood Pressure 147/84 H 177/96 H 173/91 H Pulse Oximetry 97 97 95 08/28/18 12:58 08/28/18 13:00 08/28/18 13:13 Temperature Pulse Rate 96 H 91 H 102 H Respiratory Rate Blood Pressure 163/88 H 165/87 H Pulse Oximetry 95 95 91 L 08/28/18 13:28 08/28/18 13:43 08/28/18 13:58 Temperature Pulse Rate 97 H 96 H 93 H Respiratory Rate Blood Pressure 149/84 H 159/86 H 161/89 H Pulse Oximetry 92 L 92 L 93 L 08/28/18 14:00 08/28/18 14:13 08/28/18 14:28 Temperature Pulse Rate 93 H 99 H 91 H Respiratory Rate Blood Pressure 174/95 H 165/86 H Pulse Oximetry 93 L 92 L 93 L 08/28/18 14:43 Temperature Pulse Rate 92 H Respiratory Rate Blood Pressure 174/90 H Pulse Oximetry 93 L Intake & Output 08/27/18 08/28/18 08/28/18 18:59 06:59 18:59 Intake Total 2181 / 2181 2853.2 / 2853.2 Output Total 750 / 750 850 / 850 Balance 1431 / 1431 2002.2 / 2002.2 Weight 237 lb 3.478 oz Intake: IV 1565 / 1565 1811.2 / 1811.2 Diprivan 1000 mg/100 ml Inj 1, 200 / 200 200 / 200 000 mg In 100 ml @ 5 MCG/KG/MIN 2.88 mls/hr IV.CONT TITRATE PRN Rx#:[id number] NS Inj 1,000 ML @ 84 mls/hr IV. 1000 / 1000 CONT .[id number] [facility] Rx#: [id number] Azithromycin Inj 500 MG In NS 250 / 250 Inj 250 ML @ 250 mls/hr IV.SIG Q24H [facility] Rx#:[id number] MVI-12 Inj 10 ML Thiamine Inj 511.2 / 511.2 100 MG Folvite Inj 1 MG In NS Inj 500 ML @ 125 mls/hr IV.SIG Q24H [facility] Rx#:[id number] Zosyn 3.375 GM Premix 50 ML @ 100 / 100 100 / 100 100 mls/hr IV.SIG Q6H [facility] Rx#: [id number] Vancomycin Inj 1,500 MG In NS 515 / 515 Inj 500 ML @ 250 mls/hr IV.SIG ONCE ONE Rx#:[id number] fentaNYL 10 mcg/mL Premix Drip 250 / 250 2,500 mcg In 250 ml @ 50 MCG/HR 5 mls/hr IV.SIG TITRATE PRN Rx #:[id number] Tube Feeding 556 / 556 982 / 982 Tube Irrigant 0 / 0 0 / 0 Water Bolus Amount 60 / 60 60 / 60 Output: Urine 850 / 850 Urine Amount (Catheter) 700 / 700 Indwelling Temp Sensing 700 / 700 Catheter Gastric Drainage 50 / 50 Orogastric Tube 50 / 50 Other: # Bowel Movements 0 0 Narrative: Intubated, sedated SKIN: Warm and dry. EYES: Pupils equal and round. No scleral icterus. No injection or drainage. ENT: No nasal bleeding or discharge. Mucous membranes pink and moist. NECK: Trachea midline. No JVD. CARDIOVASCULAR: Irregular. RESPIRATORY: Bibasilar crackles. GASTROINTESTINAL: Abdomen soft, non-tender, nondistended. Hepatic and splenic margins not palpable. MUSCULOSKELETAL: Extremities without edema. NEUROLOGICAL: Grossly nonfocal. - Urinary Catheter Management Indwelling Temp Sensing Catheter Cath placed during this visit: yes Reason for continuing: Hourly intake/output Insertion date: 08/25/18 Insertion time: 14:20 Results 08/28/18 05:00 08/28/18 05:00 Cardiac Enzymes 08/27/18 08/28/18 Range/Units 04:15 05:00 AST 22 20 (15-37) U/L CBC 08/27/18 08/28/18 Range/Units 04:15 05:00 WBC 19.4 H 18.2 H (4.0-11.0) th/mm3 RBC 3.46 L 3.30 L (4.50-5.90) mil/mm3 Hgb 10.9 L 10.4 L (13.0-17.0) gm/dL Hct 33.2 L 31.8 L (39.0-51.0) % Plt Count 193 205 (150-450) th/mm3 Neut # (Auto) 18.1 H 16.1 H (1.8-7.7) th/mm3 Lymph # (Auto) 0.5 L 0.8 L (1.0-4.8) th/mm3 [place] # (Auto) 0.8 1.2 H (0.0-0.9) th/mm3 Eos # (Auto) 0.0 0.0 (0.0-0.4) th/mm3 Baso # (Auto) 0.0 0.0 (0.0-0.2) th/mm3 Comprehensive Metabolic Panel 08/26/18 08/27/18 08/28/18 Range/Units 19:00 04:15 05:00 Sodium 142 146 H (136-145) meq/L Potassium 4.1 D 4.2 4.2 (3.5-5.1) meq/L Chloride 109 H 112 H (98-107) meq/L Carbon Dioxide 24.0 21.2 (21.0-32.0) meq/L BUN 60 H 82 H (7-18) mg/dL Creatinine 1.40 H 1.59 H (0.60-1.30) mg/dL Calcium 9.1 8.6 (8.5-10.1) mg/dL AST 22 20 (15-37) U/L ALT 26 25 (12-78) U/L Alkaline Phosphatase 97 106 (45-117) U/L Total Protein 5.8 L 5.5 L (6.4-8.2) g/dL Albumin 1.6 L 1.6 L (3.4-5.0) g/dL Intake and Output 08/28/18 08/28/18 08/28/18 06:59 14:59 22:59 Intake Total 1292 / 1292 Output Total 850 / 850 Balance 442 / 442 Intake: IV 250 / 250 Diprivan 1000 mg/100 ml Inj 1, 200 / 200 000 mg In 100 ml @ 5 MCG/KG/MIN 2.88 mls/hr IV.CONT TITRATE PRN Rx#:[id number] Zosyn 3.375 GM Premix 50 ML @ 50 / 50 100 mls/hr IV.SIG Q6H [facility] Rx#: [id number] Tube Feeding 982 / 982 Tube Irrigant 0 / 0 Water Bolus Amount 60 / 60 Output: Urine 850 / 850 Other: # Bowel Movements 0 Weight 237 lb 3.478 oz - Imaging and Cardiology Imaging: Impressions Chest X-Ray 08/27/18 06:00 CONCLUSION: 1. No change in bilateral pulmonary opacity. 2. Endotracheal tube tip just above the carin and could be retracted 2 cm. Assessment and Plan - Assessment (1) Atrial fibrillation with rapid ventricular response Code(s): I48.91 - Unspecified atrial fibrillation Status: Acute (2) Acute respiratory failure with hypoxia and hypercapnia Code(s): J96.01 - Acute respiratory failure with hypoxia; J96.02 - Acute respiratory failure with hypercapnia Status: Acute (3) Pneumonia Code(s): J18.9 - Pneumonia, unspecified organism Status: Acute (4) Acute kidney injury Code(s): N17.9 - Acute kidney failure, unspecified Status: Acute (5) Hypertension Code(s): I10 - Essential (primary) hypertension Status: Chronic - Plan No new cardiac issues. AF rate controlled, continue rate control. Recommend full anticoagulation. Continue ICU care. Echo with EF 45% and RV dilatation and dysfunction. Dx with suspected amio toxicity. Continue tx for pneumonia. Pulmonary evaluation in progress. Monitor renal fx. Wean vent as tolerated. D/w pt's . (3) Pneumonia Qualifiers: Pneumonia type: due to unspecified organism Laterality: bilateral Lung location: unspecified part of lung Qualified Code(s): J18.9 - Pneumonia, unspecified organism (5) Hypertension Qualifiers: Hypertension type: essential hypertension Qualified Code(s): I10 - Essential (primary) hypertension
[2018-08-28] MEDS: Labetalol HCl Inj 100 MG/20 ML Vial IV.PUSH PRN (17:18)
--- NOTE | 2018-08-28 18:32 | P.PN ---
Subjective Interval history: was extubated today and was tachypneic . Now on BIPAP 15/8 cm , FIO2 50 %. Seems lethargic. No fever. Physical Exam Vital signs: Vital Signs 08/27/18 18:30 08/27/18 18:45 08/27/18 19:00 Temperature Pulse Rate 74 74 69 Respiratory Rate Blood Pressure Pulse Oximetry 93 L 94 L 94 L 08/27/18 19:04 08/27/18 19:15 08/27/18 19:29 Temperature Pulse Rate 75 68 64 Respiratory Rate 18 Blood Pressure 105/61 Pulse Oximetry 94 L 94 L 94 L 08/27/18 19:30 08/27/18 19:45 08/27/18 20:00 Temperature 97.7 F Pulse Rate 66 69 71 Respiratory Rate Blood Pressure 112/68 Pulse Oximetry 94 L 96 94 L 08/27/18 20:04 08/27/18 20:15 08/27/18 20:30 Temperature Pulse Rate 69 67 73 Respiratory Rate Blood Pressure 99/60 L Pulse Oximetry 94 L 94 L 97 08/27/18 20:45 08/27/18 21:00 08/27/18 21:04 Temperature Pulse Rate 66 67 67 Respiratory Rate 18 18 18 Blood Pressure 94/63 L Pulse Oximetry 94 L 94 L 94 L 08/27/18 21:15 08/27/18 21:30 08/27/18 21:45 Temperature Pulse Rate 65 68 68 Respiratory Rate 18 16 18 Blood Pressure Pulse Oximetry 97 95 95 08/27/18 22:00 08/27/18 22:04 08/27/18 22:15 Temperature Pulse Rate 67 69 72 Respiratory Rate Blood Pressure 98/62 L Pulse Oximetry 95 95 95 08/27/18 22:30 08/27/18 22:45 08/27/18 23:00 Temperature 97.7 F Pulse Rate 67 67 68 Respiratory Rate Blood Pressure Pulse Oximetry 95 94 L 94 L 08/27/18 23:04 08/27/18 23:15 08/27/18 23:30 Temperature 97.8 F Pulse Rate 70 70 71 Respiratory Rate Blood Pressure 113/70 Pulse Oximetry 95 94 L 94 L 08/27/18 23:36 08/27/18 23:39 08/28/18 00:00 Temperature Pulse Rate 69 78 69 Respiratory Rate 18 Blood Pressure 112/68 Pulse Oximetry 94 L 08/28/18 00:04 08/28/18 00:30 08/28/18 01:00 Temperature 99.6 F Pulse Rate 69 66 Respiratory Rate 18 18 Blood Pressure 92/52 L 91/61 L Pulse Oximetry 94 L 94 L 08/28/18 01:04 08/28/18 02:00 08/28/18 03:00 Temperature Pulse Rate 68 68 Respiratory Rate 18 18 18 Blood Pressure 111/68 Pulse Oximetry 95 95 95 08/28/18 03:28 08/28/18 04:00 08/28/18 04:05 Temperature 97.6 F Pulse Rate 66 73 Respiratory Rate 18 18 18 Blood Pressure 110/71 Pulse Oximetry 95 95 08/28/18 05:00 08/28/18 05:04 08/28/18 06:00 Temperature Pulse Rate 67 69 66 Respiratory Rate 18 Blood Pressure 125/62 Pulse Oximetry 95 96 96 08/28/18 07:00 08/28/18 08:00 08/28/18 08:04 Temperature 97.8 F Pulse Rate 66 66 68 Respiratory Rate Blood Pressure 127/79 112/68 145/90 H Pulse Oximetry 96 96 96 08/28/18 08:09 08/28/18 08:32 08/28/18 09:00 Temperature Pulse Rate 80 68 80 Respiratory Rate 18 Blood Pressure 162/99 H Pulse Oximetry 96 96 08/28/18 09:04 08/28/18 09:08 08/28/18 09:14 Temperature Pulse Rate 84 84 90 Respiratory Rate 18 Blood Pressure 178/106 H 202/91 H 170/86 H Pulse Oximetry 96 96 96 08/28/18 10:00 08/28/18 10:04 08/28/18 11:00 Temperature Pulse Rate 87 87 84 Respiratory Rate Blood Pressure 173/95 H Pulse Oximetry 94 L 95 96 08/28/18 11:04 08/28/18 11:11 08/28/18 11:18 Temperature Pulse Rate 93 H 84 94 H Respiratory Rate Blood Pressure 193/102 H 146/71 H 146/82 H Pulse Oximetry 96 96 95 08/28/18 11:28 08/28/18 11:43 08/28/18 11:58 Temperature Pulse Rate 95 H 91 H 90 Respiratory Rate Blood Pressure 160/76 H 147/69 H 154/72 H Pulse Oximetry 95 95 96 08/28/18 12:00 08/28/18 12:13 08/28/18 12:28 Temperature 98.8 F Pulse Rate 88 89 91 H Respiratory Rate 26 H Blood Pressure 112/68 147/84 H 177/96 H Pulse Oximetry 96 97 97 08/28/18 12:43 08/28/18 12:58 08/28/18 13:00 Temperature Pulse Rate 96 H 96 H 91 H Respiratory Rate Blood Pressure 173/91 H 163/88 H Pulse Oximetry 95 95 95 08/28/18 13:13 08/28/18 13:28 08/28/18 13:43 Temperature Pulse Rate 102 H 97 H 96 H Respiratory Rate Blood Pressure 165/87 H 149/84 H 159/86 H Pulse Oximetry 91 L 92 L 92 L 08/28/18 13:58 08/28/18 14:00 08/28/18 14:13 Temperature Pulse Rate 93 H 93 H 99 H Respiratory Rate Blood Pressure 161/89 H 174/95 H Pulse Oximetry 93 L 93 L 92 L 08/28/18 14:28 08/28/18 14:43 08/28/18 14:58 Temperature Pulse Rate 91 H 92 H 92 H Respiratory Rate Blood Pressure 165/86 H 174/90 H 179/94 H Pulse Oximetry 93 L 93 L 94 L 08/28/18 15:00 08/28/18 15:13 08/28/18 15:28 Temperature Pulse Rate 90 93 H 93 H Respiratory Rate 31 H Blood Pressure 188/94 H 194/95 H Pulse Oximetry 94 L 92 L 93 L 08/28/18 15:43 08/28/18 15:58 08/28/18 16:00 Temperature 97.8 F Pulse Rate 93 H 100 H 94 H Respiratory Rate 31 H 43 H 39 H Blood Pressure 162/83 H 183/89 H 112/68 Pulse Oximetry 94 L 90 L 91 L 08/28/18 16:13 08/28/18 16:28 08/28/18 16:40 Temperature Pulse Rate 101 H 100 H 93 H Respiratory Rate 36 H 31 H 28 H Blood Pressure 165/87 H 178/97 H Pulse Oximetry 91 L 97 08/28/18 17:29 Temperature Pulse Rate Respiratory Rate Blood Pressure Pulse Oximetry 92 L Intake & Output 08/27/18 08/28/18 08/28/18 18:59 06:59 18:59 Intake Total 2181 / 2181 2853.2 / 2853.2 100 / 100 Output Total 750 / 750 850 / 850 Balance 1431 / 1431 2003.2 / 2003.2 100 / 100 Weight 107.6 kg Intake: IV 1565 / 1565 1811.2 / 1811.2 100 / 100 Diprivan 1000 mg/100 ml Inj 1, 200 / 200 200 / 200 000 mg In 100 ml @ 5 MCG/KG/MIN 2.88 mls/hr IV.CONT TITRATE PRN Rx#:[id number] NS Inj 1,000 ML @ 84 mls/hr IV. 1000 / 1000 CONT .[id number] [facility] Rx#: [id number] Azithromycin Inj 500 MG In NS 250 / 250 Inj 250 ML @ 250 mls/hr IV.SIG Q24H [facility] Rx#:[id number]-12 Inj 10 ML Thiamine Inj 511.2 / 511.2 100 MG Folvite Inj 1 MG In NS Inj 500 ML @ 125 mls/hr IV.SIG Q24H [facility] Rx#:[id number] Zosyn 3.375 GM Premix 50 ML @ 100 / 100 100 / 100 100 / 100 100 mls/hr IV.SIG Q6H [facility] Rx#: [id number] Vancomycin Inj 1,500 MG In NS 515 / 515 Inj 500 ML @ 250 mls/hr IV.SIG ONCE ONE Rx#:[id number] fentaNYL 10 mcg/mL Premix Drip 250 / 250 2,500 mcg In 250 ml @ 50 MCG/HR 5 mls/hr IV.SIG TITRATE PRN Rx #:[id number] Tube Feeding 556 / 556 982 / 982 Tube Irrigant 0 / 0 0 / 0 Water Bolus Amount 60 / 60 60 / 60 Output: Urine 850 / 850 Urine Amount (Catheter) 700 / 700 Indwelling Temp Sensing 700 / 700 Catheter Gastric Drainage 50 / 50 Orogastric Tube 50 / 50 Other: # Bowel Movements 0 0 Narrative: General ; Elderly W/M alert, On BIPAP. SKIN: Warm and dry. EYES: Pupils equal and round. No scleral icterus. No injection or drainage. ENT: No nasal bleeding or discharge. Mucous membranes pink and moist. NECK: Trachea midline. No JVD. CARDIOVASCULAR: Irregular. RESPIRATORY: Bibasilar crackles. Diffuse wheezes. GASTROINTESTINAL: Abdomen soft, non-tender, nondistended. Hepatic and splenic margins not palpable. MUSCULOSKELETAL: Extremities without edema. NEUROLOGICAL: Grossly nonfocal. - Urinary Catheter Management Indwelling Temp Sensing Catheter Cath placed during this visit: yes Reason for continuing: Hourly intake/output Insertion date: 08/25/18 Insertion time: 14:20 Results - Labs CBC & Chem 7: 08/28/18 05:00 08/28/18 05:00 Laboratory Results - last 24 hr 08/27/18 08/28/18 08/28/18 23:05 05:00 05:00 WBC 18.2 H RBC 3.30 L Hgb 10.4 L Hct 31.8 L MCV 96.5 MCH 31.7 MCHC 32.8 RDW 15.2 Plt Count 205 MPV 9.2 Prelim Diff (Auto) Slide review pending Neut % (Auto) 88.5 H Lymph % (Auto) 4.7 L [place] % (Auto) 6.7 Eos % (Auto) 0.0 Baso % (Auto) 0.1 Neut # (Auto) 16.1 H Lymph # (Auto) 0.8 L [place] # (Auto) 1.2 H Eos # (Auto) 0.0 Baso # (Auto) 0.0 WBC Differential Manual diff final Seg Neuts % (Manual) 65 Band Neuts % (Manual) 18 H Lymphocytes % (Manual) 7 L Monocytes % (Manual) 7 Metamyelocytes % (Man) 2 H Myelocytes % (Man) 1 H Abs Neuts (Manual) 15.7 H Nucleated RBCs/100 WBC 2 H Differential Comment . Toxic Granulation 1+ H Platelet Estimate Normal Platelet Morphology Normal Sodium 146 H Potassium 4.2 Chloride 112 H Carbon Dioxide 21.2 Anion Gap 13 BUN 82 H Creatinine 1.59 H Estimated GFR 42 L POC Glucose 207 H Random Glucose 226 H Calcium 8.6 Phosphorus 3.0 Magnesium 2.9 H Total Bilirubin 0.6 AST 20 ALT 25 Alkaline Phosphatase 106 Total Protein 5.5 L Albumin 1.6 L Random Vancomycin 15.1 08/28/18 08/28/18 12:32 18:25 WBC RBC Hgb Hct MCV MCH MCHC RDW Plt Count MPV Prelim Diff (Auto) Neut % (Auto) Lymph % (Auto) [place] % (Auto) Eos % (Auto) Baso % (Auto) Neut # (Auto) Lymph # (Auto) [place] # (Auto) Eos # (Auto) Baso # (Auto) WBC Differential Seg Neuts % (Manual) Band Neuts % (Manual) Lymphocytes % (Manual) Monocytes % (Manual) Metamyelocytes % (Man) Myelocytes % (Man) Abs Neuts (Manual) Nucleated RBCs/100 WBC Differential Comment Toxic Granulation Platelet Estimate Platelet Morphology Sodium Potassium Chloride Carbon Dioxide Anion Gap BUN Creatinine Estimated GFR POC Glucose 216 H 187 H Random Glucose Calcium Phosphorus Magnesium Total Bilirubin AST ALT Alkaline Phosphatase Total Protein Albumin Random Vancomycin Microbiology 08/27/18 12:27 Blood - Peripheral Aerobic Blood Culture - Preliminary No growth in 1 day 08/27/18 12:27 Blood - Peripheral Anaerobic Blood Culture - Preliminary No growth in 1 day 08/27/18 12:21 Blood - Peripheral Aerobic Blood Culture - Preliminary No growth in 1 day 08/27/18 12:21 Blood - Peripheral Anaerobic Blood Culture - Preliminary No growth in 1 day 08/25/18 09:40 Blood - Peripheral Aerobic Blood Culture - Preliminary No growth in 3 days 08/25/18 09:40 Blood - Peripheral Anaerobic Blood Culture - Preliminary No growth in 3 days 08/25/18 09:45 Blood - Peripheral Aerobic Blood Culture - Final Haemophilus influenzae 08/25/18 09:45 Blood - Peripheral Anaerobic Blood Culture - Preliminary No growth in 3 days 08/27/18 16:20 Urine - Catheterized Urine Legionella Antigen - Final Presumptive negative for Legionella pneumophila serogroup 1 antigen in urine, suggesting no recent or recurrent infection. Infection due to Legionella cannot be ruled out since other serogroups and species may cause disease, antigen may not be present in urine in early infection, and the level of antigen present in the urine may be below the detection limit of the test. 08/27/18 16:20 Urine - Catheterized Urine Streptococcus pneumoniae Antigen ( M - Final Presumptive negative for streptococcus pneumoniae antigen, suggesting no current or recent infection. Infection due to Streptococcus pneumoniae cannot be ruled out since the antigen present in the sample may be below the detection limit of the test. Assessment and Plan - Assessment (1) COPD (chronic obstructive pulmonary disease) Code(s): J44.9 - Chronic obstructive pulmonary disease, unspecified Status: Acute (2) Severe sepsis Code(s): A41.9 - Sepsis, unspecified organism; R65.20 - Severe sepsis without septic shock Status: Acute (3) Pneumonia Code(s): J18.9 - Pneumonia, unspecified organism Status: Acute (4) Acute respiratory failure with hypoxia and hypercapnia Code(s): J96.01 - Acute respiratory failure with hypoxia; J96.02 - Acute respiratory failure with hypercapnia Status: Acute (5) Lactic acidosis Code(s): E87.2 - Acidosis Status: Acute (6) Atrial fibrillation with rapid ventricular response Code(s): I48.91 - Unspecified atrial fibrillation Status: Acute (7) Acute kidney injury Code(s): N17.9 - Acute kidney failure, unspecified Status: Acute (8) Chronic steroid use Status: Chronic (9) Hypertension Code(s): I10 - Essential (primary) hypertension Status: Chronic - Plan 1. Will Place on BIPAP 15/7 CM ,FIO2 40 % 2. ABG on BIPAP 3. Duoneb nebs q6h 4. CBC,BMP ,CXR in am 5. Continue antibiotics Zosyn 6. Solumedrol IV 40 mg Q8H 7. Continue Eliquis 5 mg BID. 8. Reduce sedation. (3) Pneumonia Qualifiers: Pneumonia type: due to unspecified organism Laterality: bilateral Lung location: unspecified part of lung Qualified Code(s): J18.9 - Pneumonia, unspecified organism (9) Hypertension Qualifiers: Hypertension type: essential hypertension Qualified Code(s): I10 - Essential (primary) hypertension
[2018-08-28 18:39] LABS: ABG PCO2 36 mmHg (38-42); ABG PO2 96 mmHg (61-120)
[2018-08-29] MEDS: Artificial Tears Opth Drops 15 ML Bottle EACH EYE SCH ×4 (00:39→23:11)
[2018-08-29] MEDS: Insulin NovoLOG Aspart Correctional Sugar Inj SQ SCH ×4 (00:40→17:30)
[2018-08-29] MEDS: Oral Hygiene Kit OROPHARYNG SCH ×4 (00:41→15:56)
[2018-08-29] MEDS: Piperacil/Tazo 3.375 GM Premix 50 ML IV.SIG SCH ×2 (03:02→08:47)
[2018-08-29] MEDS: Chlorhexidine Gluconate 2% 1 Pack (2 Cloths) TOPICAL SCH (03:03)
[2018-08-29] MEDS: hydrALAZINE HCl Inj 20 MG/ML Vial IV.PUSH PRN ×2 (03:59→08:40)
--- NOTE | 2018-08-29 04:27 | XR ---
EXAM DATE: 08/29/2018 4:21 AM EST AGE/SEX: 83 years / Male INDICATIONS: Edema, shortness of breath. CLINICAL DATA: This is the patient's subsequent encounter. Patient reports that signs and symptoms h ave been present for 4 - 6 days and indicates a pain score of 0/10. MEDICAL/SURGICAL HISTORY: Hypertension. Chronic obstructive pulmonary disease. A-Fib . Lithot ripsy. Central line. COMPARISON: [facility] – [place]ST 1V SINGLE AP, 08/27/2018. . FINDINGS: Single AP view the chest. Endotracheal tube and nasogastric tube no longer seen. Left IJ central veno us catheter remains in place. Persistent bilateral pulmonary opacity with confluent consolidation at the right lung base. No evidence of pleural effusion or pneumothorax. Cardiomediastinal silhouette un changed. CONCLUSION: 1. Endotracheal tube and nasogastric tube no longer seen. 2. Bilateral pulmonary opacity right greater than left shows no significant interval change. Electronically signed by: Dane Gee MD 08/29/2018 4:26 AM EST
[2018-08-29 06:02] LABS: Baso % (Auto) 0.2 % (0.0-2.0); Hematocrit 36.2 % (39.0-51.0); Hemoglobin 11.9 gm/dL (13.0-17.0); Lymph % (Auto) 4.1 % (9.0-44.0); Mean Corpuscular HGB Conc 32.9 % (32.0-36.0); Mean Corpuscular Hemoglobin 31.6 pg (27.0-34.0); Mean Platelet Volume 9.1 fL (7.0-11.0); Mono # (Auto) 1.5 th/mm3 (0.0-0.9); Mono % (Auto) 6.3 % (0.0-8.0); Neut # (Auto) 21.5 th/mm3 (1.8-7.7); Neut % (Auto) 89.4 % (16.0-70.0); Platelet Count 244 th/mm3 (150-450); Red Blood Count 3.77 mil/mm3 (4.50-5.90); Red Cell Distribution Width 15.5 % (11.6-17.2)
[2018-08-29 06:32] LABS: Alanine Aminotransferase 28 U/L (12-78); Anion Gap 9 meq/L (5-15); Aspartate Aminotransferase 21 U/L (15-37); Blood Urea Nitrogen 85 mg/dL (7-18); Calcium 9.2 mg/dL (8.5-10.1); Carbon Dioxide 26.8 meq/L (21.0-32.0); Chloride 115 meq/L (98-107); Glomerular Filtration Rate 46 mL/min (>89); Glucose,Random 209 mg/dL (74-106); Magnesium 3.2 mg/dL (1.5-2.5); Potassium 3.6 meq/L (3.5-5.1); Sodium 151 meq/L (136-145)
[2018-08-29 06:36] LABS: Alkaline Phosphatase 91 U/L (45-117); Phosphorus 4.7 mg/dL (2.5-4.9); Total Protein 6.4 g/dL (6.4-8.2)
[2018-08-29 08:17] LABS: Lymphocytes 3 % (9-44); Metamyelocytes 4 % (0-1); Monocytes 5 % (0-8); Myelocytes 1 % (0-0); Promyelocyte 2 % (0-0); Tallied Nucleated RBC 3 (0-0); Toxic Granulation 2+
[2018-08-29 08:18] LABS: Platelet Estimate Normal (Normal); Platelet Morphology Normal (Normal)
[2018-08-29] MEDS: Metoprolol Tartrate 25 MG Tablet PO SCH ×2 (08:46→20:47)
[2018-08-29] MEDS: Senna/Docusate Sodium 8.6/50 MG Tablet PO SCH ×2 (08:46→20:48)
[2018-08-29] MEDS: Pantoprazole Inj 40 MG Vial IV.PUSH SCH (08:47)
[2018-08-29] MEDS: MethylPREDNISolone Sod Succinate Inj 40 MG/ML Vial IV.PUSH SCH ×2 (08:48→20:48)
[2018-08-29] MEDS: Chlorhexidine 0.12% Oral Kit 15 ML UDC OROPHARYNG SCH ×2 (08:48→20:47)
[2018-08-29] MEDS: Labetalol HCl Inj 100 MG/20 ML Vial IV.PUSH PRN (08:58)
[2018-08-29] MEDS: Azithromycin Inj 500 MG in Sodium Chlor 0.9% Inj 250 ML IV.SIG SCH (11:31)
[2018-08-29] MEDS: Vancomycin Inj 1,500 MG in Sodium Chlor 0.9% Inj 500 ML IV.SIG SCH (11:31)
[2018-08-29] MEDS: niCARdipine 20mg/NS Premix 20 MG/200 ML PIGGYBACK IV.SIG PRN ×3 (13:33→21:44)
[2018-08-29] MEDS ORDERED: Metoprolol Tartrate 50 MG Tablet PO ONE (13:47)
--- NOTE | 2018-08-29 13:52 | P.PNCC ---
Subjective Subjective Remarks/Hospital Course: This is an 83-year-old male. Date of admission 08/25/2018. Past medical includes atrial fibrillation with history of cardioversion, chronic apixaban use, hypertension, hyperlipidemia, trigeminal neuralgia/hard of hearing : Bilateral hearing aids. For the past 4 days, patient been increasing short of breath increased malaise. Denies any sick contacts or recent travels. Unknown influenza status. Patient is to [facility] with worsening shortness of breath. Complains of pleuritic and musculoskeletal chest pain. Patient also has a prior history of tobacco abuse times 50 years quit 15 years ago. Patient called EMS for evaluation due to acute shortness of breath. Upon arrival, patient was noted to be in a rapid heart rate in the 150s. Patient was given acute bronchodilator therapy and started on a lidocaine drip for possible V. tach. Patient was transported to [facility] for further evaluation treatment. Upon arrival, patient was noted to be in A. fib with RVR. Chest x-ray revealed bilateral infiltrates right greater than left. Patient was placed on BiPAP therapy with some improvement. Patient received ceftriaxone and azithromycin. 3 L normal saline. Patient remained somewhat hypotensive. Patient a lactate of 5.1. Troponin 0 0.27. Patient was transported to [facility]. On arrival, patient increasingly short of breath. Required intubation with central line placement and arterial line placement. SUBJECTIVE: 08/26: Currently resting in bed intubated requiring mechanical ventilation. Arousable and does follow commands but heart rate much better controlled rate. No acute findings overnight. Leukocytosis slightly worsened. Potassium replaced currently. Arousable and does follow commands. at bedside and updated Wilma. 08/27: Patient on low-dose (2 mcg) levo overnight, off since this morning. Low urine output over the past 24 hours. HR well-controlled in 70s-80s. 08/28: Patient tolerated PST yesterday afternoon, placed back on AC overnight to rest. Urine output improved with lasix/ Chavez was noted to be clogged with sediment and replaced. No new issues. 08/29: Extubated yesterday, on bipap through the afternoon/ evening (patient is on nocturnal CPAP at home). BP persistently elevated, now on cardene gtt. Objective Vital Signs / I&O: Vital Signs 08/28/18 13:58 08/28/18 14:00 08/28/18 14:13 Temperature Pulse Rate 93 H 93 H 99 H Respiratory Rate Blood Pressure 161/89 H 174/95 H Pulse Oximetry 93 L 93 L 92 L 08/28/18 14:28 08/28/18 14:43 08/28/18 14:58 Temperature Pulse Rate 91 H 92 H 92 H Respiratory Rate Blood Pressure 165/86 H 174/90 H 179/94 H Pulse Oximetry 93 L 93 L 94 L 08/28/18 15:00 08/28/18 15:13 08/28/18 15:28 Temperature Pulse Rate 90 93 H 93 H Respiratory Rate 31 H Blood Pressure 188/94 H 194/95 H Pulse Oximetry 94 L 92 L 93 L 08/28/18 15:43 08/28/18 15:58 08/28/18 16:00 Temperature 97.8 F Pulse Rate 93 H 100 H 94 H Respiratory Rate 31 H 43 H 39 H Blood Pressure 162/83 H 183/89 H 112/68 Pulse Oximetry 94 L 90 L 91 L 08/28/18 16:13 08/28/18 16:28 08/28/18 16:40 Temperature Pulse Rate 101 H 100 H 93 H Respiratory Rate 36 H 31 H 28 H Blood Pressure 165/87 H 178/97 H Pulse Oximetry 91 L 97 08/28/18 16:43 08/28/18 16:58 08/28/18 17:00 Temperature Pulse Rate 102 H 103 H 102 H Respiratory Rate 32 H 36 H 34 H Blood Pressure 183/91 H 165/93 H Pulse Oximetry 96 95 96 08/28/18 17:13 08/28/18 17:28 08/28/18 17:29 Temperature Pulse Rate 100 H 84 Respiratory Rate 34 H 25 H Blood Pressure 173/102 H 154/91 H Pulse Oximetry 91 L 92 L 92 L 08/28/18 17:43 08/28/18 17:58 08/28/18 18:00 Temperature Pulse Rate 88 87 88 Respiratory Rate 25 H 26 H 25 H Blood Pressure 154/83 H 149/91 H Pulse Oximetry 93 L 93 L 93 L 08/28/18 18:13 08/28/18 18:28 08/28/18 19:00 Temperature Pulse Rate 89 92 H 89 Respiratory Rate 24 25 H 25 H Blood Pressure 160/94 H 161/88 H Pulse Oximetry 93 L 94 L 94 L 08/28/18 19:13 08/28/18 19:28 08/28/18 19:43 Temperature Pulse Rate 86 87 85 Respiratory Rate 24 25 H 23 Blood Pressure 178/82 H 162/75 H 168/87 H Pulse Oximetry 94 L 94 L 95 08/28/18 19:58 08/28/18 20:00 08/28/18 20:13 Temperature Pulse Rate 85 83 86 Respiratory Rate 23 23 22 Blood Pressure 161/101 H 173/93 H 173/103 H Pulse Oximetry 94 L 95 95 08/28/18 20:17 08/28/18 20:19 08/28/18 20:21 Temperature Pulse Rate 86 79 Respiratory Rate 24 22 Blood Pressure 168/101 H Pulse Oximetry 94 L 95 08/28/18 20:28 08/28/18 20:43 08/28/18 20:58 Temperature Pulse Rate 87 89 90 Respiratory Rate 23 23 24 Blood Pressure 172/102 H 173/93 H 146/74 H Pulse Oximetry 96 96 94 L 08/28/18 21:00 08/28/18 21:13 08/28/18 21:28 Temperature Pulse Rate 88 86 84 Respiratory Rate 24 24 23 Blood Pressure 152/81 H 143/80 H Pulse Oximetry 94 L 93 L 93 L 08/28/18 21:43 08/28/18 21:58 08/28/18 22:00 Temperature Pulse Rate 89 83 88 Respiratory Rate 23 23 22 Blood Pressure 140/83 157/84 H Pulse Oximetry 93 L 93 L 93 L 08/28/18 22:13 08/28/18 22:28 08/28/18 22:43 Temperature Pulse Rate 86 86 83 Respiratory Rate 21 23 21 Blood Pressure 147/82 H 165/87 H 168/90 H Pulse Oximetry 94 L 94 L 94 L 08/28/18 22:58 08/28/18 23:00 08/28/18 23:13 Temperature Pulse Rate 86 83 86 Respiratory Rate 21 20 21 Blood Pressure 175/82 H 168/79 H Pulse Oximetry 94 L 94 L 94 L 08/28/18 23:28 08/28/18 23:43 08/28/18 23:58 Temperature Pulse Rate 83 87 86 Respiratory Rate 19 20 22 Blood Pressure 161/79 H 169/101 H 159/88 H Pulse Oximetry 95 95 94 L 08/29/18 00:00 08/29/18 00:13 08/29/18 00:28 Temperature Pulse Rate 84 82 84 Respiratory Rate 20 21 20 Blood Pressure 186/89 H 186/89 H 173/93 H Pulse Oximetry 94 L 94 L 95 08/29/18 00:43 08/29/18 00:49 08/29/18 00:58 Temperature Pulse Rate 84 77 86 Respiratory Rate 20 19 19 Blood Pressure 173/97 H 149/106 H Pulse Oximetry 95 95 96 08/29/18 01:00 08/29/18 01:13 08/29/18 01:28 Temperature Pulse Rate 82 84 84 Respiratory Rate 20 19 20 Blood Pressure 155/91 H 162/94 H Pulse Oximetry 96 95 95 08/29/18 01:43 08/29/18 01:58 08/29/18 02:00 Temperature Pulse Rate 86 82 82 Respiratory Rate 19 20 19 Blood Pressure 163/100 H 173/81 H Pulse Oximetry 95 96 95 08/29/18 02:13 08/29/18 02:28 08/29/18 02:43 Temperature Pulse Rate 81 79 84 Respiratory Rate 19 18 19 Blood Pressure 170/89 H 164/91 H 155/91 H Pulse Oximetry 96 95 95 08/29/18 02:58 08/29/18 03:00 08/29/18 03:13 Temperature Pulse Rate 78 80 82 Respiratory Rate 18 19 18 Blood Pressure 168/82 H 172/90 H Pulse Oximetry 95 95 95 08/29/18 03:28 08/29/18 03:55 08/29/18 04:00 Temperature 97.9 F Pulse Rate 79 79 82 Respiratory Rate 18 18 19 Blood Pressure 163/103 H 163/80 H Pulse Oximetry 95 95 96 08/29/18 05:00 08/29/18 06:00 08/29/18 07:00 Temperature Pulse Rate 83 85 81 Respiratory Rate 17 19 18 Blood Pressure Pulse Oximetry 95 95 95 08/29/18 08:00 08/29/18 08:01 08/29/18 09:00 Temperature 97.9 F Pulse Rate 85 82 85 Respiratory Rate 20 20 17 Blood Pressure Pulse Oximetry 95 95 96 08/29/18 09:49 08/29/18 13:00 Temperature Pulse Rate 78 74 Respiratory Rate 19 26 H Blood Pressure Pulse Oximetry 97 Intake & Output 08/28/18 08/29/18 08/29/18 18:59 06:59 18:59 Intake Total 1028 / 1028 100 / 100 50 / 50 Output Total 2800 / 2800 2200 / 2200 Balance -1772 / -1772 -2099 / -2099 50 / 50 Weight 105.9 kg Intake: IV 865 / 865 100 / 100 50 / 50 Azithromycin Inj 500 MG In NS 250 / 250 Inj 250 ML @ 250 mls/hr IV.SIG Q24H BRIANNA Rx#:[id number] Zosyn 3.375 GM Premix 50 ML @ 100 / 100 100 / 100 50 / 50 100 mls/hr IV.SIG Q6H BRIANNA Rx#: [id number] Vancomycin Inj 1,500 MG In NS 515 / 515 Inj 500 ML @ 250 mls/hr IV.SIG Q24H BRIANNA Rx#:[id number] Tube Feeding 103 / 103 Tube Irrigant 60 / 60 Output: Urine Amount (Catheter) 2800 / 2800 2200 / 2200 Indwelling Temp Sensing 2800 / 2800 2200 / 2200 Catheter Other: # Bowel Movements 0 Result Diagrams: 08/29/18 05:30 08/29/18 05:30 Objective Remarks: GENERAL: Well-appearing, lying in bed in no acute distress SKIN: Warm and dry. HEENT: NCAT, PERRL NECK: Trachea midline. No JVD. Left IJ CVL is clean dry and intact CARDIOVASCULAR: Irregular, regular rate RESPIRATORY: Diminished breath sounds at bases bilaterally, currently on NRB with O2 sats in mid 90s, no respiratory distress, strong cough GASTROINTESTINAL: Abdomen soft, non-tender, non-distended MUSCULOSKELETAL: 1+ pitting edema in all extremities, improving NEUROLOGICAL: A&Ox3, awake and alert, no deficits Assessment and Plan - Assessment and Plan Plan: Neuro/Psych: Hard of hearing Acetaminophen 650 mg by tube every 6 hours as needed fever Delirium precautions (lights on/ shades up during the day, limit nighttime disruptions, frequent reorientation, use hearing aids) CV: Atrial fibrillation with rapid ventricular response currently rate controlled Elevated troponin History of essential hypertension Hyperlipidemia Lactic acidosis Trop 0.27 on admission, most recent 0.08, no longer trending Echo: EF 45%, RV enlargement/ dysfunction, PAP 38 mm Hg Increase metoprolol from 25 mg to 50 mg BID Wean cardene gtt as able BID lasix 20 mg, diuresing well Resp: Acute respiratory failure secondary to community acquired pneumonia History of COPD 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 Albuterol/ipratropium aerosols every 4 hours with albuterol aerosols every 2 hours as needed dyspnea Continue home fluticasone/Vilanterol 200/25 1 inhalation daily Continue solumedrol 40 mg q12h Continue nocturnal CPAP/ PRN BiPAP Pulmonology following GI: Hypoalbuminemia Elevated total bilirubin Clear liquids when not on bipap Pantoprazole for GI prophylaxis Docusate sodium/senna 1 tablet twice daily for bowel regimen : Chavez catheter D/Cd today, obtain daily weights, continue BID lasix Endo: Acute hyperglycemia Chronic steroid use Low TSH SSI TSH was 0.094, normal T4, T3 low-- would recheck in 4 weeks after critical illness has resolved On steroids as noted above Renal: Elevated creatinine question acute kidney injury normalizing BID lasix dosing No urine eosinophils noted Renal ultrasound - bilateral renal cyst. Possible hemorrhagic left renal cyst Avoid nephrotoxic medication Monitor urine output Accurate I's and O's Heme: Leukocytosis- improving Monitor CBC daily ID: Community acquired pneumonia Blood cultures from 08/25 grew Haemophilus influenza sensitive to penicillins/ cephalosporins, narrow abx to ceftriaxone for total of 7 days (will end on Sunday) Repeat blood cultures sent on 08/27 negative thus far Sputum and urine cultures no growth to date Flu and MRSA swabs negative Legionella and pneumococcus negative MSK: Elevated BMI PT evaluate and treat Weight loss encouraged FEN: Hypokalemia ICU electrolyte protocol Access -D/C TLC, art line, Chavez Prophylaxis -GI -pantoprazole -DVT -SCD/apixaban Level 2 follow up To help prompt me to consider important information that might be impacting today's encounter and assessment, information from prior notes written by myself or my colleagues may have been "brought forward" into today's note. My signature on this note, however, is an attestation that I personally performed the exam, history, and/or decision-making noted today, and, unless otherwise indicated, the interactions with patient, family, and staff as well as the review of records all occurred today. I also attest that the listed assessment and stated plan reflect my best clinical judgment today based on the combination of historical information, prior notes, and today's exam/ interactions. Code Status: Full
[2018-08-29] MEDS ORDERED: niCARdipine Inj 50 MG in Sodium Chlor 0.9% Inj 230 ML IV.CONT PRN (14:00)
--- NOTE | 2018-08-29 15:28 | P.PN ---
Subjective Interval history: Alert and on O2 Via NRB mask. Used BIPAP last nite. Output was good with Lasix. Physical Exam Vital signs: Vital Signs 08/28/18 15:28 08/28/18 15:43 08/28/18 15:58 Temperature Pulse Rate 93 H 93 H 100 H Respiratory Rate 31 H 31 H 43 H Blood Pressure 194/95 H 162/83 H 183/89 H Pulse Oximetry 93 L 94 L 90 L 08/28/18 16:00 08/28/18 16:13 08/28/18 16:28 Temperature 97.8 F Pulse Rate 94 H 101 H 100 H Respiratory Rate 39 H 36 H 31 H Blood Pressure 112/68 165/87 H 178/97 H Pulse Oximetry 91 L 91 L 97 08/28/18 16:40 08/28/18 16:43 08/28/18 16:58 Temperature Pulse Rate 93 H 102 H 103 H Respiratory Rate 28 H 32 H 36 H Blood Pressure 183/91 H 165/93 H Pulse Oximetry 96 95 08/28/18 17:00 08/28/18 17:13 08/28/18 17:28 Temperature Pulse Rate 102 H 100 H 84 Respiratory Rate 34 H 34 H 25 H Blood Pressure 173/102 H 154/91 H Pulse Oximetry 96 91 L 92 L 08/28/18 17:29 08/28/18 17:43 08/28/18 17:58 Temperature Pulse Rate 88 87 Respiratory Rate 25 H 26 H Blood Pressure 154/83 H 149/91 H Pulse Oximetry 92 L 93 L 93 L 08/28/18 18:00 08/28/18 18:13 08/28/18 18:28 Temperature Pulse Rate 88 89 92 H Respiratory Rate 25 H 24 25 H Blood Pressure 160/94 H 161/88 H Pulse Oximetry 93 L 93 L 94 L 08/28/18 19:00 08/28/18 19:13 08/28/18 19:28 Temperature Pulse Rate 89 86 87 Respiratory Rate 25 H 24 25 H Blood Pressure 178/82 H 162/75 H Pulse Oximetry 94 L 94 L 94 L 08/28/18 19:43 08/28/18 19:58 08/28/18 20:00 Temperature Pulse Rate 85 85 83 Respiratory Rate 23 23 23 Blood Pressure 168/87 H 161/101 H 173/93 H Pulse Oximetry 95 94 L 95 08/28/18 20:13 11/21/18 20:17 08/28/18 20:19 Temperature Pulse Rate 86 86 Respiratory Rate 22 24 Blood Pressure 173/103 H 168/101 H Pulse Oximetry 95 94 L 95 08/28/18 20:21 08/28/18 20:28 08/28/18 20:43 Temperature Pulse Rate 79 87 89 Respiratory Rate 22 23 23 Blood Pressure 172/102 H 173/93 H Pulse Oximetry 96 96 08/28/18 20:58 08/28/18 21:00 08/28/18 21:13 Temperature Pulse Rate 90 88 86 Respiratory Rate 24 24 24 Blood Pressure 146/74 H 152/81 H Pulse Oximetry 94 L 94 L 93 L 08/28/18 21:28 08/28/18 21:43 08/28/18 21:58 Temperature Pulse Rate 84 89 83 Respiratory Rate 23 23 23 Blood Pressure 143/80 H 140/83 157/84 H Pulse Oximetry 93 L 93 L 93 L 08/28/18 22:00 08/28/18 22:13 08/28/18 22:28 Temperature Pulse Rate 88 86 86 Respiratory Rate 22 21 23 Blood Pressure 147/82 H 165/87 H Pulse Oximetry 93 L 94 L 94 L 08/28/18 22:43 08/28/18 22:58 08/28/18 23:00 Temperature Pulse Rate 83 86 83 Respiratory Rate 21 21 20 Blood Pressure 168/90 H 175/82 H Pulse Oximetry 94 L 94 L 94 L 08/28/18 23:13 08/28/18 23:28 08/28/18 23:43 Temperature Pulse Rate 86 83 87 Respiratory Rate 21 19 20 Blood Pressure 168/79 H 161/79 H 169/101 H Pulse Oximetry 94 L 95 95 08/28/18 23:58 08/29/18 00:00 08/29/18 00:13 Temperature Pulse Rate 86 84 82 Respiratory Rate 22 20 21 Blood Pressure 159/88 H 186/89 H 186/89 H Pulse Oximetry 94 L 94 L 94 L 08/29/18 00:28 08/29/18 00:43 08/29/18 00:49 Temperature Pulse Rate 84 84 77 Respiratory Rate 20 20 19 Blood Pressure 173/93 H 173/97 H Pulse Oximetry 95 95 95 08/29/18 00:58 08/29/18 01:00 08/29/18 01:13 Temperature Pulse Rate 86 82 84 Respiratory Rate 19 20 19 Blood Pressure 149/106 H 155/91 H Pulse Oximetry 96 96 95 08/29/18 01:28 08/29/18 01:43 08/29/18 01:58 Temperature Pulse Rate 84 86 82 Respiratory Rate 20 19 20 Blood Pressure 162/94 H 163/100 H 173/81 H Pulse Oximetry 95 95 96 08/29/18 02:00 08/29/18 02:13 08/29/18 02:28 Temperature Pulse Rate 82 81 79 Respiratory Rate 19 19 18 Blood Pressure 170/89 H 164/91 H Pulse Oximetry 95 96 95 08/29/18 02:43 08/29/18 02:58 08/29/18 03:00 Temperature Pulse Rate 84 78 80 Respiratory Rate 19 18 19 Blood Pressure 155/91 H 168/82 H Pulse Oximetry 95 95 95 08/29/18 03:13 08/29/18 03:28 08/29/18 03:55 Temperature Pulse Rate 82 79 79 Respiratory Rate 18 18 18 Blood Pressure 172/90 H 163/103 H Pulse Oximetry 95 95 95 08/29/18 04:00 08/29/18 05:00 08/29/18 06:00 Temperature 97.9 F Pulse Rate 82 83 85 Respiratory Rate 19 17 19 Blood Pressure 163/80 H Pulse Oximetry 96 95 95 08/29/18 07:00 08/29/18 08:00 08/29/18 08:01 Temperature 97.9 F Pulse Rate 81 85 82 Respiratory Rate 18 20 20 Blood Pressure Pulse Oximetry 95 95 95 08/29/18 09:00 08/29/18 09:49 08/29/18 10:00 Temperature Pulse Rate 85 78 75 Respiratory Rate 17 19 16 Blood Pressure Pulse Oximetry 96 97 97 08/29/18 11:00 08/29/18 12:00 08/29/18 13:00 Temperature 97.3 F L Pulse Rate 82 91 H 78 Respiratory Rate 19 20 18 Blood Pressure Pulse Oximetry 95 96 97 08/29/18 13:15 08/29/18 13:30 08/29/18 13:45 Temperature Pulse Rate 77 79 82 Respiratory Rate 21 22 23 Blood Pressure Pulse Oximetry 98 98 96 08/29/18 14:00 Temperature Pulse Rate 87 Respiratory Rate 22 Blood Pressure Pulse Oximetry 94 L Intake & Output 08/28/18 08/29/18 08/29/18 18:59 06:59 18:59 Intake Total 1028 / 1028 100 / 100 50 / 50 Output Total 2800 / 2800 2200 / 2200 Balance -1772 / -1772 -2100 / -2099 50 / 50 Weight 105.9 kg Intake: IV 865 / 865 100 / 100 50 / 50 Azithromycin Inj 500 MG In NS 250 / 250 Inj 250 ML @ 250 mls/hr IV.SIG Q24H BRIANNA Rx#:[id number] Zosyn 3.375 GM Premix 50 ML @ 100 / 100 100 / 100 50 / 50 100 mls/hr IV.SIG Q6H BRIANNA Rx#: [id number] Vancomycin Inj 1,500 MG In NS 515 / 515 Inj 500 ML @ 250 mls/hr IV.SIG Q24H BRIANNA Rx#:[id number] Tube Feeding 103 / 103 Tube Irrigant 60 / 60 Output: Urine Amount (Catheter) 2800 / 2800 2200 / 2200 Indwelling Temp Sensing 2800 / 2800 2200 / 2200 Catheter Other: Date of Last Bowel Movement 08/29/18 # Bowel Movements 0 Narrative: General ; Elderly W/M alert, On a NRB Mask. SKIN: Warm and dry. EYES: Pupils equal and round. No scleral icterus. No injection or drainage. ENT: No nasal bleeding or discharge. Mucous membranes pink and moist. NECK: Trachea midline. No JVD. CARDIOVASCULAR: Irregular. RESPIRATORY: Bibasilar crackles. Diffuse wheezes. GASTROINTESTINAL: Abdomen soft, non-tender, nondistended. Hepatic and splenic margins not palpable. MUSCULOSKELETAL: Extremities without edema. NEUROLOGICAL: Grossly nonfocal. - Urinary Catheter Management Indwelling Temp Sensing Catheter Cath placed during this visit: yes, but has since been removed by the nurse Reason for continuing: Decision to DC catheter Insertion date: 08/25/18 Insertion time: 14:20 Removal date: 08/29/18 Removal time: 12:30 Results - Labs CBC & Chem 7: 08/29/18 05:30 08/29/18 05:30 Laboratory Results - last 24 hr 08/25/18 08/28/18 08/28/18 15:00 18:25 18:30 WBC RBC Hgb Hct MCV MCH MCHC RDW Plt Count MPV Prelim Diff (Auto) Neut % (Auto) Lymph % (Auto) Sevier % (Auto) Eos % (Auto) Baso % (Auto) Neut # (Auto) Lymph # (Auto) Sevier # (Auto) Eos # (Auto) Baso # (Auto) WBC Differential Seg Neuts % (Manual) Band Neuts % (Manual) Lymphocytes % (Manual) Monocytes % (Manual) Metamyelocytes % (Man) Myelocytes % (Man) Promyelocytes % (Man) Abs Neuts (Manual) Nucleated RBCs/100 WBC Differential Comment Toxic Granulation Platelet Estimate Platelet Morphology Puncture Site Art line Art line Patient Temperature 98.6 O2 Saturation 96 ABG pH 7.44 H ABG pCO2 36 L ABG pO2 96 ABG HCO3 24 ABG O2 Content 16.2 ABG Base Excess 0.0 ABG Methemoglobin 1.2 Hemoglobin 12.0 Carboxyhemoglobin 1.1 O2 Delivery Device Bipap Vent Setting [id number] Inspired O2 65 Critical Value No Sodium Potassium Chloride Carbon Dioxide Anion Gap BUN Creatinine Estimated GFR POC Glucose 187 H Random Glucose Calcium Phosphorus Magnesium Total Bilirubin AST ALT Alkaline Phosphatase Total Protein Albumin 08/28/18 08/29/18 08/29/18 23:43 05:30 05:30 WBC 24.0 H RBC 3.77 L Hgb 11.9 L Hct 36.2 L MCV 96.0 MCH 31.6 MCHC 32.9 RDW 15.5 Plt Count 244 MPV 9.1 Prelim Diff (Auto) Slide review pending Neut % (Auto) 89.4 H Lymph % (Auto) 4.1 L Sevier % (Auto) 6.3 Eos % (Auto) 0.0 Baso % (Auto) 0.2 Neut # (Auto) 21.5 H Lymph # (Auto) 1.0 Sevier # (Auto) 1.5 H Eos # (Auto) 0.0 Baso # (Auto) 0.0 WBC Differential Manual diff final Seg Neuts % (Manual) 81 H Band Neuts % (Manual) 4 Lymphocytes % (Manual) 3 L Monocytes % (Manual) 5 Metamyelocytes % (Man) 4 H Myelocytes % (Man) 1 H Promyelocytes % (Man) 2 H Abs Neuts (Manual) 22.1 H Nucleated RBCs/100 WBC 3 H Differential Comment . Toxic Granulation 2+ H Platelet Estimate Normal Platelet Morphology Normal Puncture Site Patient Temperature O2 Saturation ABG pH ABG pCO2 ABG pO2 ABG HCO3 ABG O2 Content ABG Base Excess ABG Methemoglobin Hemoglobin Carboxyhemoglobin O2 Delivery Device Vent Setting Inspired O2 Critical Value Sodium 151 H Potassium 3.6 Chloride 115 H Carbon Dioxide 26.8 Anion Gap 9 BUN 85 H Creatinine 1.45 H Estimated GFR 46 L POC Glucose 182 H Random Glucose 209 H Calcium 9.2 Phosphorus 4.7 D Magnesium 3.2 H Total Bilirubin 1.1 H AST 21 ALT 28 Alkaline Phosphatase 91 Total Protein 6.4 D Albumin 2.0 L 08/29/18 11:41 WBC RBC Hgb Hct MCV MCH MCHC RDW Plt Count MPV Prelim Diff (Auto) Neut % (Auto) Lymph % (Auto) Sevier % (Auto) Eos % (Auto) Baso % (Auto) Neut # (Auto) Lymph # (Auto) Sevier # (Auto) Eos # (Auto) Baso # (Auto) WBC Differential Seg Neuts % (Manual) Band Neuts % (Manual) Lymphocytes % (Manual) Monocytes % (Manual) Metamyelocytes % (Man) Myelocytes % (Man) Promyelocytes % (Man) Abs Neuts (Manual) Nucleated RBCs/100 WBC Differential Comment Toxic Granulation Platelet Estimate Platelet Morphology Puncture Site Patient Temperature O2 Saturation ABG pH ABG pCO2 ABG pO2 ABG HCO3 ABG O2 Content ABG Base Excess ABG Methemoglobin Hemoglobin Carboxyhemoglobin O2 Delivery Device Vent Setting Inspired O2 Critical Value Sodium Potassium Chloride Carbon Dioxide Anion Gap BUN Creatinine Estimated GFR POC Glucose 231 H Random Glucose Calcium Phosphorus Magnesium Total Bilirubin AST ALT Alkaline Phosphatase Total Protein Albumin Microbiology 08/27/18 12:27 Blood - Peripheral Aerobic Blood Culture - Preliminary No growth in 2 days 08/27/18 12:27 Blood - Peripheral Anaerobic Blood Culture - Preliminary No growth in 2 days 08/27/18 12:21 Blood - Peripheral Aerobic Blood Culture - Preliminary No growth in 2 days 08/27/18 12:21 Blood - Peripheral Anaerobic Blood Culture - Preliminary No growth in 2 days 08/25/18 09:40 Blood - Peripheral Aerobic Blood Culture - Preliminary No growth in 4 days 08/25/18 09:40 Blood - Peripheral Anaerobic Blood Culture - Preliminary No growth in 4 days 08/25/18 09:45 Blood - Peripheral Aerobic Blood Culture - Final Haemophilus influenzae 08/25/18 09:45 Blood - Peripheral Anaerobic Blood Culture - Preliminary No growth in 4 days - Imaging Impressions Chest X-Ray 08/29/18 00:00 CONCLUSION: 1. Endotracheal tube and nasogastric tube no longer seen. 2. Bilateral pulmonary opacity right greater than left shows no significant interval change. Assessment and Plan - Assessment (1) COPD (chronic obstructive pulmonary disease) Code(s): J44.9 - Chronic obstructive pulmonary disease, unspecified Status: Acute (2) Severe sepsis Code(s): A41.9 - Sepsis, unspecified organism; R65.20 - Severe sepsis without septic shock Status: Acute (3) Pneumonia Code(s): J18.9 - Pneumonia, unspecified organism Status: Acute (4) Acute respiratory failure with hypoxia and hypercapnia Code(s): J96.01 - Acute respiratory failure with hypoxia; J96.02 - Acute respiratory failure with hypercapnia Status: Acute (5) Lactic acidosis Code(s): E87.2 - Acidosis Status: Acute (6) Atrial fibrillation with rapid ventricular response Code(s): I48.91 - Unspecified atrial fibrillation Status: Acute (7) Acute kidney injury Code(s): N17.9 - Acute kidney failure, unspecified Status: Acute (8) Chronic steroid use Status: Chronic (9) Hypertension Code(s): I10 - Essential (primary) hypertension Status: Chronic - Plan 1. Place on BIPAP 15/7 CM ,FIO2 40 % at HS 2. O2 Ventimask 50 % daytime 3. Duoneb nebs q6h 4. CBC,BMP ,CXR in am 5. Continue antibiotics . 6. Solumedrol IV 40 mg Q12 H 7. Continue Eliquis 5 mg BID. 8. Continue Breo 200/25 Mcg, 1 puff daily (3) Pneumonia Qualifiers: Pneumonia type: due to unspecified organism Laterality: bilateral Lung location: unspecified part of lung Qualified Code(s): J18.9 - Pneumonia, unspecified organism (9) Hypertension Qualifiers: Hypertension type: essential hypertension Qualified Code(s): I10 - Essential (primary) hypertension
[2018-08-30] MEDS: Insulin NovoLOG Aspart Correctional Sugar Inj SQ SCH ×4 (01:11→18:32)
[2018-08-30] MEDS: Oral Hygiene Kit OROPHARYNG SCH ×4 (01:11→15:32)
[2018-08-30] MEDS: niCARdipine 20mg/NS Premix 20 MG/200 ML PIGGYBACK IV.SIG PRN ×2 (01:38→05:19)
[2018-08-30] MEDS: Acetaminophen 325 MG Tablet PO PRN ×2 (03:08→20:45)
[2018-08-30] MEDS: Chlorhexidine Gluconate 2% 1 Pack (2 Cloths) TOPICAL SCH (04:22)
[2018-08-30 05:23] LABS: Baso % (Auto) 0.1 % (0.0-2.0); Hematocrit 36.3 % (39.0-51.0); Hemoglobin 11.5 gm/dL (13.0-17.0); Lymph # (Auto) 0.9 th/mm3 (1.0-4.8); Mean Corpuscular HGB Conc 31.8 % (32.0-36.0); Mean Corpuscular Hemoglobin 30.6 pg (27.0-34.0); Mean Corpuscular Volume 96.3 fL (80.0-100.0); Mean Platelet Volume 9.2 fL (7.0-11.0); Mono # (Auto) 0.8 th/mm3 (0.0-0.9); Mono % (Auto) 3.5 % (0.0-8.0); Neut # (Auto) 21.2 th/mm3 (1.8-7.7); Neut % (Auto) 92.4 % (16.0-70.0); Platelet Count 252 th/mm3 (150-450); Red Blood Count 3.77 mil/mm3 (4.50-5.90); Red Cell Distribution Width 15.9 % (11.6-17.2); White Blood Count 22.9 th/mm3 (4.0-11.0)
[2018-08-30 05:57] LABS: Alanine Aminotransferase 30 U/L (12-78); Albumin 1.9 g/dL (3.4-5.0); Alkaline Phosphatase 77 U/L (45-117); Anion Gap 8 meq/L (5-15); Aspartate Aminotransferase 23 U/L (15-37); Blood Urea Nitrogen 83 mg/dL (7-18); Calcium 9.2 mg/dL (8.5-10.1); Carbon Dioxide 28.2 meq/L (21.0-32.0); Chloride 119 meq/L (98-107); Glomerular Filtration Rate 58 mL/min (>89); Glucose,Random 177 mg/dL (74-106); Phosphorus 3.5 mg/dL (2.5-4.9); Potassium 3.2 meq/L (3.5-5.1); Sodium 155 meq/L (136-145); Total Protein 5.9 g/dL (6.4-8.2)
[2018-08-30] MEDS: Artificial Tears Opth Drops 15 ML Bottle EACH EYE SCH ×3 (06:38→22:33)
[2018-08-30] MEDS: Potassium Chlor 40 mEq Premix 40 MEQ/100 ML PIGGYBACK IV.SIG PRN ×2 (06:43→12:06)
[2018-08-30 07:22] LABS: Lymphocytes 1 % (9-44); Metamyelocytes 2 % (0-1); Monocytes 2 % (0-8); Myelocytes 1 % (0-0); Tallied Nucleated RBC 2 (0-0)
[2018-08-30 07:23] LABS: Platelet Estimate Normal (Normal); Platelet Morphology Normal (Normal); RBC Morphology Normal (Normal); Toxic Granulation 2+
[2018-08-30] MEDS: Metoprolol Tartrate 25 MG Tablet PO SCH ×2 (08:24→20:46)
[2018-08-30] MEDS: Pantoprazole Inj 40 MG Vial IV.PUSH SCH (08:24)
[2018-08-30] MEDS: Senna/Docusate Sodium 8.6/50 MG Tablet PO SCH ×2 (08:24→20:44)
[2018-08-30] MEDS: Chlorhexidine 0.12% Oral Kit 15 ML UDC OROPHARYNG SCH ×2 (08:24→20:44)
[2018-08-30] MEDS: MethylPREDNISolone Sod Succinate Inj 40 MG/ML Vial IV.PUSH SCH (08:24)
[2018-08-30] MEDS: hydrALAZINE HCl Inj 20 MG/ML Vial IV.PUSH PRN (12:39)
--- NOTE | 2018-08-30 15:21 | P.PNCC ---
Subjective Subjective Remarks/Hospital Course: This is an 83-year-old male. Date of admission 08/25/2018. Past medical includes atrial fibrillation with history of cardioversion, chronic apixaban use, hypertension, hyperlipidemia, trigeminal neuralgia/hard of hearing : Bilateral hearing aids. For the past 4 days, patient been increasing short of breath increased malaise. Denies any sick contacts or recent travels. Unknown influenza status. Patient is to [facility] with worsening shortness of breath. Complains of pleuritic and musculoskeletal chest pain. Patient also has a prior history of tobacco abuse times 50 years quit 15 years ago. Patient called EMS for evaluation due to acute shortness of breath. Upon arrival, patient was noted to be in a rapid heart rate in the 150s. Patient was given acute bronchodilator therapy and started on a lidocaine drip for possible V. tach. Patient was transported to [facility] for further evaluation treatment. Upon arrival, patient was noted to be in A. fib with RVR. Chest x-ray revealed bilateral infiltrates right greater than left. Patient was placed on BiPAP therapy with some improvement. Patient received ceftriaxone and azithromycin. 3 L normal saline. Patient remained somewhat hypotensive. Patient a lactate of 5.1. Troponin 0 0.27. Patient was transported to [facility]. On arrival, patient increasingly short of breath. Required intubation with central line placement and arterial line placement. SUBJECTIVE: 08/26: Currently resting in bed intubated requiring mechanical ventilation. Arousable and does follow commands but heart rate much better controlled rate. No acute findings overnight. Leukocytosis slightly worsened. Potassium replaced currently. Arousable and does follow commands. at bedside and updated Wilma. 08/27: Patient on low-dose (2 mcg) levo overnight, off since this morning. Low urine output over the past 24 hours. HR well-controlled in 70s-80s. 08/28: Patient tolerated PST yesterday afternoon, placed back on AC overnight to rest. Urine output improved with lasix/ Chavez was noted to be clogged with sediment and replaced. No new issues. 08/29: Extubated yesterday, on bipap through the afternoon/ evening (patient is on nocturnal CPAP at home). BP persistently elevated, now on cardene gtt. 08/30: On BiPAP overnight. Currently on facemask O2. Sitting up in chair, not in any acute distress. Objective Vital Signs / I&O: Vital Signs 08/29/18 15:30 08/29/18 15:45 08/29/18 16:00 Temperature 97.5 F L Pulse Rate 80 72 89 Respiratory Rate 23 23 24 Pulse Oximetry 94 L 94 L 90 L 08/29/18 16:15 08/29/18 16:30 08/29/18 16:45 Temperature Pulse Rate 73 73 69 Respiratory Rate 23 26 H 23 Pulse Oximetry 95 93 L 94 L 08/29/18 17:00 08/29/18 17:15 08/29/18 17:30 Temperature Pulse Rate 70 71 81 Respiratory Rate 22 23 24 Pulse Oximetry 94 L 94 L 90 L 08/29/18 17:45 08/29/18 18:00 08/29/18 19:00 Temperature Pulse Rate 74 70 75 Respiratory Rate 25 H 26 H 26 H Pulse Oximetry 95 95 94 L 08/29/18 19:15 08/29/18 19:30 08/29/18 19:45 Temperature Pulse Rate 77 79 75 Respiratory Rate 27 H 26 H 26 H Pulse Oximetry 93 L 94 L 94 L 08/29/18 20:00 08/29/18 20:15 08/29/18 20:30 Temperature 97.8 F Pulse Rate 82 79 76 Respiratory Rate 32 H 24 27 H Pulse Oximetry 92 L 94 L 93 L 08/29/18 20:45 08/29/18 21:00 08/29/18 21:14 Temperature Pulse Rate 81 86 Respiratory Rate 35 H 31 H Pulse Oximetry 91 L 91 L 92 L 08/29/18 21:15 08/29/18 21:30 08/29/18 21:45 Temperature Pulse Rate 80 81 73 Respiratory Rate 28 H 33 H 22 Pulse Oximetry 89 L 90 L 93 L 08/29/18 22:00 08/29/18 22:15 08/29/18 22:30 Temperature Pulse Rate 69 71 71 Respiratory Rate 22 21 22 Pulse Oximetry 93 L 93 L 93 L 08/29/18 22:45 08/29/18 23:00 08/29/18 23:15 Temperature Pulse Rate 76 76 78 Respiratory Rate 27 H 22 22 Pulse Oximetry 93 L 92 L 92 L 08/29/18 23:30 08/29/18 23:38 08/29/18 23:45 Temperature 97.8 F Pulse Rate 68 74 Respiratory Rate 23 24 Pulse Oximetry 93 L 94 L 92 L 08/30/18 00:00 08/30/18 00:15 08/30/18 00:30 Temperature 97.8 F Pulse Rate 73 74 74 Respiratory Rate 20 21 20 Pulse Oximetry 93 L 93 L 93 L 08/30/18 00:45 08/30/18 01:00 08/30/18 01:15 Temperature Pulse Rate 72 73 81 Respiratory Rate 19 22 22 Pulse Oximetry 93 L 93 L 92 L 08/30/18 01:30 08/30/18 01:45 08/30/18 02:00 Temperature Pulse Rate 73 75 75 Respiratory Rate 24 24 20 Pulse Oximetry 90 L 91 L 93 L 08/30/18 02:15 08/30/18 02:30 08/30/18 02:45 Temperature Pulse Rate 79 75 78 Respiratory Rate 25 H 20 21 Pulse Oximetry 93 L 94 L 93 L 08/30/18 03:00 08/30/18 03:15 08/30/18 03:30 Temperature Pulse Rate 78 82 78 Respiratory Rate 29 H 31 H 23 Pulse Oximetry 93 L 90 L 92 L 08/30/18 03:38 08/30/18 03:45 08/30/18 04:00 Temperature 97.8 F Pulse Rate 80 76 Respiratory Rate 19 24 21 Pulse Oximetry 93 L 93 L 08/30/18 04:15 08/30/18 04:23 08/30/18 04:30 Temperature Pulse Rate 76 82 Respiratory Rate 21 20 Pulse Oximetry 93 L 93 L 92 L 08/30/18 04:45 08/30/18 05:00 08/30/18 05:15 Temperature Pulse Rate 77 83 74 Respiratory Rate 20 28 H 21 Pulse Oximetry 93 L 93 L 93 L 08/30/18 05:30 08/30/18 05:45 08/30/18 06:00 Temperature Pulse Rate 96 H 78 80 Respiratory Rate 36 H 21 21 Pulse Oximetry 89 L 93 L 93 L 08/30/18 06:15 08/30/18 06:30 08/30/18 06:45 Temperature Pulse Rate 80 81 75 Respiratory Rate 21 22 19 Pulse Oximetry 94 L 93 L 93 L 08/30/18 07:00 08/30/18 07:15 08/30/18 07:30 Temperature Pulse Rate 79 80 90 Respiratory Rate 20 21 25 H Pulse Oximetry 93 L 93 L 93 L 08/30/18 07:45 08/30/18 07:54 08/30/18 08:00 Temperature 97.6 F Pulse Rate 79 71 78 Respiratory Rate 23 20 Pulse Oximetry 93 L 95 94 L 08/30/18 08:15 08/30/18 08:25 08/30/18 08:30 Temperature Pulse Rate 85 83 88 Respiratory Rate 21 26 H 26 H Pulse Oximetry 95 97 98 08/30/18 08:45 08/30/18 09:00 08/30/18 09:15 Temperature Pulse Rate 90 87 76 Respiratory Rate 25 H 28 H 24 Pulse Oximetry 97 97 98 08/30/18 09:30 08/30/18 09:45 08/30/18 09:47 Temperature Pulse Rate 73 72 Respiratory Rate 24 23 Pulse Oximetry 97 94 L 93 L 08/30/18 10:00 08/30/18 10:15 08/30/18 10:30 Temperature Pulse Rate 78 85 Respiratory Rate 26 H 33 H Pulse Oximetry 94 L 89 L 91 L 08/30/18 10:45 08/30/18 11:00 08/30/18 11:15 Temperature Pulse Rate 86 81 82 Respiratory Rate 31 H 27 H 31 H Pulse Oximetry 92 L 90 L 90 L 08/30/18 11:30 08/30/18 11:45 08/30/18 12:00 Temperature 97.9 F Pulse Rate 81 85 83 Respiratory Rate 28 H 26 H 29 H Pulse Oximetry 91 L 92 L 90 L 08/30/18 12:15 08/30/18 12:16 08/30/18 12:30 Temperature Pulse Rate 80 89 Respiratory Rate 28 H 30 H Pulse Oximetry 90 L 91 L 91 L 08/30/18 12:45 08/30/18 13:00 08/30/18 13:15 Temperature Pulse Rate 79 87 88 Respiratory Rate 27 H 28 H 32 H Pulse Oximetry 92 L 91 L 87 L 08/30/18 13:30 08/30/18 13:45 08/30/18 14:00 Temperature Pulse Rate 94 H 84 84 Respiratory Rate 35 H 29 H 25 H Pulse Oximetry 88 L 90 L 91 L Intake & Output 08/29/18 08/30/18 08/30/18 18:59 06:59 18:59 Intake Total 2315 / 2315 700 / 700 200 / 200 Output Total 570 / 570 850 / 850 Balance 1745 / 1745 -150 / -150 200 / 200 Weight 104.3 kg Intake: IV 1115 / 1115 700 / 700 200 / 200 Azithromycin Inj 500 MG In NS 250 / 250 Inj 250 ML @ 250 mls/hr IV.SIG Q24H BRIANNA Rx#:[id number] Zosyn 3.375 GM Premix 50 ML @ 50 / 50 100 mls/hr IV.SIG Q6H BRIANNA Rx#: [id number] KCl 40 mEq Premix Inj 40 meq In 100 / 100 100 ml @ 25 mls/hr IV.SIG Q2H PRN Rx#:[id number] Vancomycin Inj 1,500 MG In NS 515 / 515 Inj 500 ML @ 250 mls/hr IV.SIG Q24H BRIANNA Rx#:[id number] Rocephin Inj 1,000 MG In NS Inj 100 / 100 100 / 100 100 / 100 100 ML @ 200 mls/hr IV.SIG Q12H BRIANNA Rx#:[id number] Cardene 20 mg/NS 200 ml Premix 200 / 200 600 / 600 20 mg In 200 ml @ 5 MG/HR 50 mls/hr IV.SIG TITRATE PRN Rx#: [id number] Oral 1200 / 1200 Output: Urine 370 / 370 850 / 850 Urine Amount (Catheter) 200 / 200 Indwelling Temp Sensing 200 / 200 Catheter Other: # Incontinent Voids 1 Date of Last Bowel Movement 08/29/18 08/29/18 08/30/18 # Incontinent Bowel Movements 1 Result Diagrams: 08/30/18 04:30 08/30/18 04:30 Imaging: Impressions Chest X-Ray 08/29/18 00:00 CONCLUSION: 1. Endotracheal tube and nasogastric tube no longer seen. 2. Bilateral pulmonary opacity right greater than left shows no significant interval change. Objective Remarks: GENERAL: Well-appearing, lying in bed in no acute distress SKIN: Warm and dry. HEENT: NCAT, PERRL NECK: Trachea midline. No JVD. Left IJ CVL is clean dry and intact CARDIOVASCULAR: Irregular, regular rate RESPIRATORY: Diminished breath sounds at bases bilaterally, currently on facemask O2 with O2 sats in mid 90s, no respiratory distress, strong cough GASTROINTESTINAL: Abdomen soft, non-tender, non-distended MUSCULOSKELETAL: 1+ pitting edema in all extremities, improving NEUROLOGICAL: A&Ox3, awake and alert, no deficits Assessment and Plan - Problem List (1) Acute respiratory failure with hypoxia and hypercapnia Code(s): J96.01 - Acute respiratory failure with hypoxia; J96.02 - Acute respiratory failure with hypercapnia Status: Acute (2) Hyponatremia Code(s): E87.1 - Hypo-osmolality and hyponatremia Status: Acute (3) Lactic acidosis Code(s): E87.2 - Acidosis Status: Acute (4) Atrial fibrillation with rapid ventricular response Code(s): I48.91 - Unspecified atrial fibrillation Status: Acute (5) Acute kidney injury Code(s): N17.9 - Acute kidney failure, unspecified Status: Acute (6) Chronic steroid use Status: Chronic (7) Hypertension Code(s): I10 - Essential (primary) hypertension Status: Chronic (8) Hyperlipidemia Code(s): E78.5 - Hyperlipidemia, unspecified Status: Chronic (9) Hard of hearing Code(s): H91.90 - Unspecified hearing loss, unspecified ear Status: Chronic (10) Trigeminal neuralgia Code(s): G50.0 - Trigeminal neuralgia Status: Chronic (11) Chronic anticoagulation Code(s): Z79.01 - prison (current) use of anticoagulants Status: Chronic (12) Leukocytosis Code(s): D72.829 - Elevated white blood cell count, unspecified Status: Acute (13) Elevated troponin Code(s): R74.8 - Abnormal levels of other serum enzymes Status: Acute (14) Hypoalbuminemia Code(s): E88.09 - Other disorders of plasma-protein metabolism, not elsewhere classified Status: Acute - Assessment and Plan Plan: Neuro/Psych: Hard of hearing Acetaminophen 650 mg by tube every 6 hours as needed fever Delirium precautions (lights on/ shades up during the day, limit nighttime disruptions, frequent reorientation, use hearing aids) CV: Atrial fibrillation with rapid ventricular response currently rate controlled Elevated troponin History of essential hypertension Hyperlipidemia Lactic acidosis Trop 0.27 on admission, most recent 0.08, no longer trending Echo: EF 45%, RV enlargement/ dysfunction, PAP 38 mm Hg Increase metoprolol from 25 mg to 50 mg BID Wean cardene gtt as able BID lasix 20 mg, diuresing well Resp: Acute respiratory failure secondary to community acquired pneumonia History of COPD 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 Albuterol/ipratropium aerosols every 4 hours with albuterol aerosols every 2 hours as needed dyspnea Continue home fluticasone/Vilanterol 200/25 1 inhalation daily Continue solumedrol 40 mg q12h Continue nocturnal CPAP/ PRN BiPAP Pulmonology following GI: Hypoalbuminemia Elevated total bilirubin Clear liquids when not on bipap Pantoprazole for GI prophylaxis Docusate sodium/senna 1 tablet twice daily for bowel regimen : Chavez catheter D/Cd today, obtain daily weights, continue BID lasix Endo: Acute hyperglycemia Chronic steroid use Low TSH SSI TSH was 0.094, normal T4, T3 low-- would recheck in 4 weeks after critical illness has resolved On steroids as noted above Renal: Elevated creatinine question acute kidney injury normalizing BID lasix dosing No urine eosinophils noted Renal ultrasound - bilateral renal cyst. Possible hemorrhagic left renal cyst Avoid nephrotoxic medication Monitor urine output Accurate I's and O's Heme: Leukocytosis- improving Monitor CBC daily ID: Community acquired pneumonia Blood cultures from 08/25 grew Haemophilus influenza sensitive to penicillins/ cephalosporins, narrow abx to ceftriaxone for total of 7 days (will end on Sunday) Repeat blood cultures sent on 08/27 negative thus far Sputum and urine cultures no growth to date Flu and MRSA swabs negative Legionella and pneumococcus negative Consult ID for antibiotic management. MSK: Elevated BMI PT evaluate and treat Weight loss encouraged FEN: Hypokalemia ICU electrolyte protocol Access -D/C TLC, art line, Chavez Prophylaxis -GI -pantoprazole -DVT -SCD/apixaban Level 2 follow up Critical care will sign off, please reconsult if needed. Transfer to hospitalist service for medical management. Being followed by pulmonary. To help prompt me to consider important information that might be impacting today's encounter and assessment, information from prior notes written by myself or my colleagues may have been "brought forward" into today's note. My signature on this note, however, is an attestation that I personally performed the exam, history, and/or decision-making noted today, and, unless otherwise indicated, the interactions with patient, family, and staff as well as the review of records all occurred today. I also attest that the listed assessment and stated plan reflect my best clinical judgment today based on the combination of historical information, prior notes, and today's exam/ interactions. (7) Hypertension Qualifiers: Hypertension type: essential hypertension Qualified Code(s): I10 - Essential (primary) hypertension (8) Hyperlipidemia Qualifiers: Hyperlipidemia type: unspecified Qualified Code(s): E78.5 - Hyperlipidemia, unspecified (9) Hard of hearing Qualifiers: Hearing loss type: unspecified Laterality: bilateral Qualified Code(s): H91.93 - Unspecified hearing loss, bilateral (12) Leukocytosis Qualifiers: Leukocytosis type: unspecified Qualified Code(s): D72.829 - Elevated white blood cell count, unspecified
--- NOTE | 2018-08-30 16:59 | P.PN ---
Subjective Interval history: he is better. Now on O2 5 L. Used BIPAP at HS. CXR still shows Bilateral infiltrates. Good output with lasix Physical Exam Vital signs: Vital Signs 08/29/18 17:00 08/29/18 17:15 08/29/18 17:30 Temperature Pulse Rate 70 71 81 Respiratory Rate 22 23 24 Blood Pressure Pulse Oximetry 94 L 94 L 90 L 08/29/18 17:45 08/29/18 18:00 08/29/18 19:00 Temperature Pulse Rate 74 70 75 Respiratory Rate 25 H 26 H 26 H Blood Pressure Pulse Oximetry 95 95 94 L 08/29/18 19:15 08/29/18 19:30 08/29/18 19:45 Temperature Pulse Rate 77 79 75 Respiratory Rate 27 H 26 H 26 H Blood Pressure Pulse Oximetry 93 L 94 L 94 L 08/29/18 20:00 08/29/18 20:15 08/29/18 20:30 Temperature 97.8 F Pulse Rate 82 79 76 Respiratory Rate 32 H 24 27 H Blood Pressure Pulse Oximetry 92 L 94 L 93 L 08/29/18 20:45 08/29/18 21:00 08/29/18 21:14 Temperature Pulse Rate 81 86 Respiratory Rate 35 H 31 H Blood Pressure Pulse Oximetry 91 L 91 L 92 L 08/29/18 21:15 08/29/18 21:30 08/29/18 21:45 Temperature Pulse Rate 80 81 73 Respiratory Rate 28 H 33 H 22 Blood Pressure Pulse Oximetry 89 L 90 L 93 L 08/29/18 22:00 08/29/18 22:15 08/29/18 22:30 Temperature Pulse Rate 69 71 71 Respiratory Rate 22 21 22 Blood Pressure Pulse Oximetry 93 L 93 L 93 L 08/29/18 22:45 08/29/18 23:00 08/29/18 23:15 Temperature Pulse Rate 76 76 78 Respiratory Rate 27 H 22 22 Blood Pressure Pulse Oximetry 93 L 92 L 92 L 08/29/18 23:30 08/29/18 23:38 08/29/18 23:45 Temperature 97.8 F Pulse Rate 68 74 Respiratory Rate 23 24 Blood Pressure Pulse Oximetry 93 L 94 L 92 L 08/30/18 00:00 08/30/18 00:15 08/30/18 00:30 Temperature 97.8 F Pulse Rate 73 74 74 Respiratory Rate 20 21 20 Blood Pressure Pulse Oximetry 93 L 93 L 93 L 08/30/18 00:45 08/30/18 01:00 08/30/18 01:15 Temperature Pulse Rate 72 73 81 Respiratory Rate 19 22 22 Blood Pressure Pulse Oximetry 93 L 93 L 92 L 08/30/18 01:30 08/30/18 01:45 08/30/18 02:00 Temperature Pulse Rate 73 75 75 Respiratory Rate 24 24 20 Blood Pressure Pulse Oximetry 90 L 91 L 93 L 08/30/18 02:15 08/30/18 02:30 08/30/18 02:45 Temperature Pulse Rate 79 75 78 Respiratory Rate 25 H 20 21 Blood Pressure Pulse Oximetry 93 L 94 L 93 L 08/30/18 03:00 08/30/18 03:15 08/30/18 03:30 Temperature Pulse Rate 78 82 78 Respiratory Rate 29 H 31 H 23 Blood Pressure Pulse Oximetry 93 L 90 L 92 L 08/30/18 03:38 08/30/18 03:45 08/30/18 04:00 Temperature 97.8 F Pulse Rate 80 76 Respiratory Rate 19 24 21 Blood Pressure Pulse Oximetry 93 L 93 L 08/30/18 04:15 08/30/18 04:23 08/30/18 04:30 Temperature Pulse Rate 76 82 Respiratory Rate 21 20 Blood Pressure Pulse Oximetry 93 L 93 L 92 L 08/30/18 04:45 08/30/18 05:00 08/30/18 05:15 Temperature Pulse Rate 77 83 74 Respiratory Rate 20 28 H 21 Blood Pressure Pulse Oximetry 93 L 93 L 93 L 08/30/18 05:30 08/30/18 05:45 08/30/18 06:00 Temperature Pulse Rate 96 H 78 80 Respiratory Rate 36 H 21 21 Blood Pressure Pulse Oximetry 89 L 93 L 93 L 08/30/18 06:15 08/30/18 06:30 08/30/18 06:45 Temperature Pulse Rate 80 81 75 Respiratory Rate 21 22 19 Blood Pressure Pulse Oximetry 94 L 93 L 93 L 08/30/18 07:00 08/30/18 07:15 08/30/18 07:30 Temperature Pulse Rate 79 80 90 Respiratory Rate 20 21 25 H Blood Pressure Pulse Oximetry 93 L 93 L 93 L 08/30/18 07:45 08/30/18 07:54 08/30/18 08:00 Temperature 97.6 F Pulse Rate 79 71 78 Respiratory Rate 23 20 Blood Pressure Pulse Oximetry 93 L 95 94 L 08/30/18 08:15 08/30/18 08:25 08/30/18 08:30 Temperature Pulse Rate 85 83 88 Respiratory Rate 21 26 H 26 H Blood Pressure Pulse Oximetry 95 97 98 08/30/18 08:45 08/30/18 09:00 08/30/18 09:15 Temperature Pulse Rate 90 87 76 Respiratory Rate 25 H 28 H 24 Blood Pressure Pulse Oximetry 97 97 98 08/30/18 09:30 08/30/18 09:45 08/30/18 09:47 Temperature Pulse Rate 73 72 Respiratory Rate 24 23 Blood Pressure Pulse Oximetry 97 94 L 93 L 08/30/18 10:00 08/30/18 10:15 08/30/18 10:30 Temperature Pulse Rate 78 85 Respiratory Rate 26 H 33 H Blood Pressure Pulse Oximetry 94 L 89 L 91 L 08/30/18 10:45 08/30/18 11:00 08/30/18 11:15 Temperature Pulse Rate 86 81 82 Respiratory Rate 31 H 27 H 31 H Blood Pressure Pulse Oximetry 92 L 90 L 90 L 08/30/18 11:30 08/30/18 11:45 08/30/18 12:00 Temperature 97.9 F Pulse Rate 81 85 83 Respiratory Rate 28 H 26 H 29 H Blood Pressure Pulse Oximetry 91 L 92 L 90 L 08/30/18 12:15 08/30/18 12:16 08/30/18 12:30 Temperature Pulse Rate 80 89 Respiratory Rate 28 H 30 H Blood Pressure Pulse Oximetry 90 L 91 L 91 L 08/30/18 12:45 08/30/18 13:00 08/30/18 13:15 Temperature Pulse Rate 79 87 88 Respiratory Rate 27 H 28 H 32 H Blood Pressure Pulse Oximetry 92 L 91 L 87 L 08/30/18 13:30 08/30/18 13:45 08/30/18 14:00 Temperature Pulse Rate 94 H 84 84 Respiratory Rate 35 H 29 H 25 H Blood Pressure Pulse Oximetry 88 L 90 L 91 L 08/30/18 14:15 08/30/18 14:30 08/30/18 14:45 Temperature Pulse Rate 85 90 85 Respiratory Rate 28 H 28 H 27 H Blood Pressure Pulse Oximetry 91 L 89 L 92 L 08/30/18 15:00 08/30/18 15:15 08/30/18 15:30 Temperature Pulse Rate 95 H 90 89 Respiratory Rate 39 H 30 H 30 H Blood Pressure Pulse Oximetry 89 L 90 L 90 L 08/30/18 15:45 08/30/18 16:00 08/30/18 16:04 Temperature 97.9 F Pulse Rate 92 H 90 90 Respiratory Rate 33 H 31 H 31 H Blood Pressure 125/77 Pulse Oximetry 89 L 90 L 90 L 08/30/18 16:15 08/30/18 16:30 08/30/18 16:45 Temperature Pulse Rate 88 92 H 89 Respiratory Rate 32 H 32 H 32 H Blood Pressure Pulse Oximetry 90 L 90 L 90 L Intake & Output 08/29/18 08/30/18 08/30/18 18:59 06:59 18:59 Intake Total 2315 / 2315 700 / 700 300 / 300 Output Total 570 / 570 850 / 850 Balance 1745 / 1745 -150 / -150 300 / 300 Weight 104.3 kg Intake: IV 1115 / 1115 700 / 700 300 / 300 Azithromycin Inj 500 MG In NS 250 / 250 Inj 250 ML @ 250 mls/hr IV.SIG Q24H BRIANNA Rx#:[id number] Zosyn 3.375 GM Premix 50 ML @ 50 / 50 100 mls/hr IV.SIG Q6H BRIANNA Rx#: [id number] KCl 40 mEq Premix Inj 40 meq In 200 / 200 100 ml @ 25 mls/hr IV.SIG Q2H PRN Rx#:[id number] Vancomycin Inj 1,500 MG In NS 515 / 515 Inj 500 ML @ 250 mls/hr IV.SIG Q24H BRIANNA Rx#:[id number] Rocephin Inj 1,000 MG In NS Inj 100 / 100 100 / 100 100 / 100 100 ML @ 200 mls/hr IV.SIG Q12H BRIANNA Rx#:[id number] Cardene 20 mg/NS 200 ml Premix 200 / 200 600 / 600 20 mg In 200 ml @ 5 MG/HR 50 mls/hr IV.SIG TITRATE PRN Rx#: [id number] Oral 1200 / 1200 Output: Urine 370 / 370 850 / 850 Urine Amount (Catheter) 200 / 200 Indwelling Temp Sensing 200 / 200 Catheter Other: # Incontinent Voids 1 Date of Last Bowel Movement 08/29/18 08/29/18 08/30/18 # Incontinent Bowel Movements 1 Narrative: General ; Elderly W/M alert, On a N/C O2 5 L SKIN: Warm and dry. EYES: Pupils equal and round. No scleral icterus. No injection or drainage. ENT: No nasal bleeding or discharge. Mucous membranes pink and moist. NECK: Trachea midline. No JVD. CARDIOVASCULAR: Irregular. RESPIRATORY: Bibasilar crackles. Diffuse wheezes. GASTROINTESTINAL: Abdomen soft, non-tender, nondistended. Hepatic and splenic margins not palpable. MUSCULOSKELETAL: Extremities without edema. NEUROLOGICAL: Grossly nonfocal. - Urinary Catheter Management Indwelling Temp Sensing Catheter Cath placed during this visit: yes, but has since been removed by the nurse Reason for continuing: Decision to DC catheter Insertion date: 08/25/18 Insertion time: 14:20 Removal date: 08/29/18 Removal time: 12:30 Results - Labs CBC & Chem 7: 08/30/18 04:30 08/30/18 04:30 Laboratory Results - last 24 hr 08/29/18 08/29/18 08/30/18 17:00 23:40 04:30 WBC 22.9 H RBC 3.77 L Hgb 11.5 L Hct 36.3 L MCV 96.3 MCH 30.6 MCHC 31.8 L RDW 15.9 Plt Count 252 MPV 9.2 Prelim Diff (Auto) Slide review pending Neut % (Auto) 92.4 H Lymph % (Auto) 4.0 L [place] % (Auto) 3.5 Eos % (Auto) 0.0 Baso % (Auto) 0.1 Neut # (Auto) 21.2 H Lymph # (Auto) 0.9 L [place] # (Auto) 0.8 Eos # (Auto) 0.0 Baso # (Auto) 0.0 WBC Differential Manual diff final Seg Neuts % (Manual) 87 H Band Neuts % (Manual) 7 H Lymphocytes % (Manual) 1 L Monocytes % (Manual) 2 Metamyelocytes % (Man) 2 H Myelocytes % (Man) 1 H Abs Neuts (Manual) 22.2 H Nucleated RBCs/100 WBC 2 H Differential Comment . Toxic Granulation 2+ H Platelet Estimate Normal Platelet Morphology Normal RBC Morphology Normal Sodium Potassium Chloride Carbon Dioxide Anion Gap BUN Creatinine Estimated GFR POC Glucose 185 H 161 H Random Glucose Calcium Phosphorus Magnesium Total Bilirubin AST ALT Alkaline Phosphatase Total Protein Albumin 08/30/18 08/30/18 04:30 12:01 WBC RBC Hgb Hct MCV MCH MCHC RDW Plt Count MPV Prelim Diff (Auto) Neut % (Auto) Lymph % (Auto) [place] % (Auto) Eos % (Auto) Baso % (Auto) Neut # (Auto) Lymph # (Auto) [place] # (Auto) Eos # (Auto) Baso # (Auto) WBC Differential Seg Neuts % (Manual) Band Neuts % (Manual) Lymphocytes % (Manual) Monocytes % (Manual) Metamyelocytes % (Man) Myelocytes % (Man) Abs Neuts (Manual) Nucleated RBCs/100 WBC Differential Comment Toxic Granulation Platelet Estimate Platelet Morphology RBC Morphology Sodium 155 H Potassium 3.2 L Chloride 119 H Carbon Dioxide 28.2 Anion Gap 8 BUN 83 H Creatinine 1.19 Estimated GFR 58 L POC Glucose 168 H Random Glucose 177 H Calcium 9.2 Phosphorus 3.5 D Magnesium 3.0 H Total Bilirubin 0.9 AST 23 ALT 30 Alkaline Phosphatase 77 Total Protein 5.9 L Albumin 1.9 L Microbiology 08/27/18 12:27 Blood - Peripheral Aerobic Blood Culture - Preliminary No growth in 3 days 08/27/18 12:27 Blood - Peripheral Anaerobic Blood Culture - Preliminary No growth in 3 days 08/27/18 12:21 Blood - Peripheral Aerobic Blood Culture - Preliminary No growth in 3 days 08/27/18 12:21 Blood - Peripheral Anaerobic Blood Culture - Preliminary No growth in 3 days 08/25/18 09:40 Blood - Peripheral Aerobic Blood Culture - Final No growth in 5 days 08/25/18 09:40 Blood - Peripheral Anaerobic Blood Culture - Final No growth in 5 days 08/25/18 09:45 Blood - Peripheral Aerobic Blood Culture - Final Haemophilus influenzae 08/25/18 09:45 Blood - Peripheral Anaerobic Blood Culture - Final No growth in 5 days Assessment and Plan - Assessment (1) COPD (chronic obstructive pulmonary disease) Code(s): J44.9 - Chronic obstructive pulmonary disease, unspecified Status: Acute (2) Severe sepsis Code(s): A41.9 - Sepsis, unspecified organism; R65.20 - Severe sepsis without septic shock Status: Acute (3) Pneumonia Code(s): J18.9 - Pneumonia, unspecified organism Status: Acute (4) Acute respiratory failure with hypoxia and hypercapnia Code(s): J96.01 - Acute respiratory failure with hypoxia; J96.02 - Acute respiratory failure with hypercapnia Status: Acute (5) Lactic acidosis Code(s): E87.2 - Acidosis Status: Acute (6) Atrial fibrillation with rapid ventricular response Code(s): I48.91 - Unspecified atrial fibrillation Status: Acute (7) Acute kidney injury Code(s): N17.9 - Acute kidney failure, unspecified Status: Acute (8) Chronic steroid use Status: Chronic (9) Hypertension Code(s): I10 - Essential (primary) hypertension Status: Chronic - Plan 1. Place on BIPAP 14/7 CM ,FIO2 28 % at HS 2. O2 N/C 4 L daytime 3. Duoneb nebs q6h 4. CBC,BMP ,CXR in am 5. Continue antibiotics . 6. D/C Solumedrol and add Prednisone 30 mg daily to taper 7. Continue Eliquis 5 mg BID. 8. Continue Breo 200/25 Mcg, 1 puff daily (3) Pneumonia Qualifiers: Pneumonia type: due to unspecified organism Laterality: bilateral Lung location: unspecified part of lung Qualified Code(s): J18.9 - Pneumonia, unspecified organism (9) Hypertension Qualifiers: Hypertension type: essential hypertension Qualified Code(s): I10 - Essential (primary) hypertension
[2018-08-30] MEDS: Baclofen 10 MG Tablet PO SCH (20:44)
[2018-08-30] MEDS: Potassium Chlor 20 mEq Premix 20 MEQ/100 ML PIGGYBACK IV.SIG PRN (21:48)
[2018-08-31] MEDS: Potassium Chlor 20 mEq Premix 20 MEQ/100 ML PIGGYBACK IV.SIG PRN (00:03)
[2018-08-31] MEDS: Insulin NovoLOG Aspart Correctional Sugar Inj SQ SCH ×4 (00:25→18:30)
[2018-08-31] MEDS: Oral Hygiene Kit OROPHARYNG SCH ×4 (00:26→16:51)
[2018-08-31] MEDS: Baclofen 10 MG Tablet PO SCH ×2 (04:39→05:23)
[2018-08-31 05:01] LABS: Eos # (Auto) 0.1 th/mm3 (0.0-0.4); Eos % (Auto) 0.2 % (0.0-4.0); Hematocrit 38.1 % (39.0-51.0); Hemoglobin 12.6 gm/dL (13.0-17.0); Lymph # (Auto) 0.9 th/mm3 (1.0-4.8); Lymph % (Auto) 3.5 % (9.0-44.0); Mean Corpuscular Hemoglobin 31.3 pg (27.0-34.0); Mean Platelet Volume 8.8 fL (7.0-11.0); Mono # (Auto) 0.9 th/mm3 (0.0-0.9); Mono % (Auto) 3.6 % (0.0-8.0); Neut # (Auto) 24.2 th/mm3 (1.8-7.7); Neut % (Auto) 92.7 % (16.0-70.0); Platelet Count 295 th/mm3 (150-450); Red Blood Count 4.01 mil/mm3 (4.50-5.90); Red Cell Distribution Width 16.1 % (11.6-17.2); White Blood Count 26.1 th/mm3 (4.0-11.0)
[2018-08-31 05:33] LABS: Alanine Aminotransferase 40 U/L (12-78); Albumin 2.1 g/dL (3.4-5.0); Alkaline Phosphatase 79 U/L (45-117); Anion Gap 9 meq/L (5-15); Aspartate Aminotransferase 30 U/L (15-37); Blood Urea Nitrogen 86 mg/dL (7-18); Calcium 9.2 mg/dL (8.5-10.1); Carbon Dioxide 28.7 meq/L (21.0-32.0); Chloride 122 meq/L (98-107); Glomerular Filtration Rate 47 mL/min (>89); Glucose,Random 162 mg/dL (74-106); Magnesium 3.1 mg/dL (1.5-2.5); Total Protein 6.1 g/dL (6.4-8.2)
[2018-08-31 05:38] LABS: Sodium 160 meq/L (136-145)
--- NOTE | 2018-08-31 05:44 | XR ---
EXAM DATE: 08/31/2018 5:31 AM EST AGE/SEX: 83 years / Male INDICATIONS: Shortness of breath. CLINICAL DATA: This is the patient's subsequent encounter. Patient reports that signs and symptoms h ave been present for 4 - 6 days and indicates a pain score of Nonresponsive. MEDICAL/SURGICAL HISTORY: . Hypertension. Chronic obstructive pulmonary disease. A-Fib . . Lit hotripsy. Central line. COMPARISON: [facility] [place], CHEST 1V SINGLE AP, 08/29/2018. . FINDINGS: Left central line in superior vena cava. Dense patchy consolidation in both lungs with slight improve ment on the right at the right lung base. Small effusions. No pneumothorax. CONCLUSION: Bilateral airspace disease in the lungs with slight improvement in the right lung base compared with August 29. Electronically signed by: Denny Davidson MD 08/31/2018 5:43 AM EST
[2018-08-31] MEDS: Artificial Tears Opth Drops 15 ML Bottle EACH EYE SCH ×2 (06:07→14:29)
[2018-08-31 08:06] LABS: Lymphocytes 5 % (9-44); Metamyelocytes 2 % (0-1); Monocytes 5 % (0-8); Myelocytes 2 % (0-0); Promyelocyte 1 % (0-0)
[2018-08-31 08:08] LABS: Toxic Granulation 1+
[2018-08-31 08:09] LABS: Platelet Estimate Normal (Normal); Platelet Morphology Normal (Normal)
[2018-08-31] MEDS: Pantoprazole Inj 40 MG Vial IV.PUSH SCH (10:11)
[2018-08-31] MEDS: Metoprolol Tartrate 25 MG Tablet PO SCH ×2 (10:12→20:14)
[2018-08-31] MEDS: Chlorhexidine 0.12% Oral Kit 15 ML UDC OROPHARYNG SCH ×2 (10:13→20:15)
[2018-08-31] MEDS: predniSONE 10 MG Tablet PO SCH (10:13)
[2018-08-31] MEDS: Senna/Docusate Sodium 8.6/50 MG Tablet PO SCH ×2 (10:15→20:15)
--- NOTE | 2018-08-31 10:36 | P.PNIM ---
Subjective Interval history: DW patient, RN and spouse at the bedside. He had some periods of confusion overnight. He did not sleep well. Physical Exam Vital signs: Vital Signs 08/30/18 10:45 08/30/18 11:00 08/30/18 11:15 Temperature Pulse Rate 86 81 82 Respiratory Rate 31 H 27 H 31 H Blood Pressure Pulse Oximetry 92 L 90 L 90 L 08/30/18 11:30 08/30/18 11:45 08/30/18 12:00 Temperature 97.9 F Pulse Rate 81 85 83 Respiratory Rate 28 H 26 H 29 H Blood Pressure Pulse Oximetry 91 L 92 L 90 L 08/30/18 12:15 08/30/18 12:16 08/30/18 12:30 Temperature Pulse Rate 80 89 Respiratory Rate 28 H 30 H Blood Pressure Pulse Oximetry 90 L 91 L 91 L 08/30/18 12:45 08/30/18 13:00 08/30/18 13:15 Temperature Pulse Rate 79 87 88 Respiratory Rate 27 H 28 H 32 H Blood Pressure Pulse Oximetry 92 L 91 L 87 L 08/30/18 13:30 08/30/18 13:45 08/30/18 14:00 Temperature Pulse Rate 94 H 84 84 Respiratory Rate 35 H 29 H 25 H Blood Pressure Pulse Oximetry 88 L 90 L 91 L 08/30/18 14:15 08/30/18 14:30 08/30/18 14:45 Temperature Pulse Rate 85 90 85 Respiratory Rate 28 H 28 H 27 H Blood Pressure Pulse Oximetry 91 L 89 L 92 L 08/30/18 15:00 08/30/18 15:15 08/30/18 15:30 Temperature Pulse Rate 95 H 90 89 Respiratory Rate 39 H 30 H 30 H Blood Pressure Pulse Oximetry 89 L 90 L 90 L 08/30/18 15:45 08/30/18 16:00 08/30/18 16:04 Temperature 97.9 F Pulse Rate 92 H 90 90 Respiratory Rate 33 H 31 H 31 H Blood Pressure 125/77 Pulse Oximetry 89 L 90 L 90 L 08/30/18 16:15 08/30/18 16:30 08/30/18 16:45 Temperature Pulse Rate 88 92 H 89 Respiratory Rate 32 H 32 H 32 H Blood Pressure Pulse Oximetry 90 L 90 L 90 L 08/30/18 17:00 08/30/18 17:15 08/30/18 17:30 Temperature Pulse Rate 90 87 86 Respiratory Rate 32 H 30 H 31 H Blood Pressure 149/83 H Pulse Oximetry 90 L 91 L 90 L 08/30/18 17:45 08/30/18 18:00 08/30/18 18:15 Temperature Pulse Rate 92 H 92 H 105 H Respiratory Rate 30 H 33 H 31 H Blood Pressure 152/86 H Pulse Oximetry 91 L 91 L 91 L 08/30/18 19:00 08/30/18 20:00 08/30/18 21:00 Temperature 97.5 F L Pulse Rate 92 H 94 H 100 H Respiratory Rate 29 H 32 H 33 H Blood Pressure 141/73 H 146/73 H 138/89 Pulse Oximetry 91 L 91 L 90 L 08/30/18 21:15 08/30/18 22:00 08/30/18 23:00 Temperature Pulse Rate 83 83 Respiratory Rate 22 36 H 30 H Blood Pressure 153/93 H 138/91 H Pulse Oximetry 90 L 92 L 08/31/18 00:00 08/31/18 01:00 08/31/18 02:00 Temperature 97.6 F Pulse Rate 84 89 86 Respiratory Rate 34 H 34 H 33 H Blood Pressure 139/92 H 149/84 H 135/79 Pulse Oximetry 91 L 90 L 91 L 08/31/18 03:00 08/31/18 04:00 08/31/18 05:00 Temperature 97.6 F Pulse Rate 86 92 H 88 Respiratory Rate 32 H 38 H 30 H Blood Pressure 142/92 H 149/83 H 149/85 H Pulse Oximetry 91 L 91 L 92 L 08/31/18 06:00 08/31/18 06:03 08/31/18 07:00 Temperature Pulse Rate 99 H 94 H 88 Respiratory Rate 45 H 39 H 30 H Blood Pressure 168/116 H 154/97 H 149/104 H Pulse Oximetry 88 L 92 L 96 08/31/18 07:03 08/31/18 08:00 08/31/18 09:00 Temperature 98.7 F Pulse Rate 91 H 87 94 H Respiratory Rate 33 H 32 H 35 H Blood Pressure 155/98 H 148/84 H 152/89 H Pulse Oximetry 94 L 94 L 92 L 08/31/18 10:06 Temperature Pulse Rate Respiratory Rate Blood Pressure Pulse Oximetry 94 L Intake & Output 08/30/18 08/31/18 08/31/18 18:59 06:59 18:59 Intake Total 900 / 900 200 / 200 100 / 100 Output Total 900 / 900 400 / 400 Balance 0 / 0 -200 / -200 100 / 100 Weight 103.7 kg Intake: IV 300 / 300 200 / 200 100 / 100 KCl 20 mEq Premix Inj 20 meq In 200 / 200 100 ml @ 50 mls/hr IV.SIG Q2H PRN Rx#:[id number] KCl 40 mEq Premix Inj 40 meq In 200 / 200 100 ml @ 25 mls/hr IV.SIG Q2H PRN Rx#:[id number] Rocephin Inj 1,000 MG In NS Inj 100 / 100 100 / 100 100 ML @ 200 mls/hr IV.SIG Q12H BRIANNA Rx#:[id number] Oral 600 / 600 Output: Urine 900 / 900 400 / 400 Other: # Voids 2 # Incontinent Voids 1 Date of Last Bowel Movement 08/30/18 08/31/18 08/31/18 Narrative: General : Elderly W/M alert, On a N/C O2 5 L CARDIOVASCULAR: Normal rate, Irregular. RESPIRATORY: Bibasilar crackles. Diffuse wheezes. GASTROINTESTINAL: Abdomen soft, non-tender, nondistended. MUSCULOSKELETAL: Extremities without edema. NEUROLOGICAL: Grossly nonfocal. - Urinary Catheter Management Indwelling Temp Sensing Catheter Cath placed during this visit: yes, but has since been removed by the nurse Reason for continuing: Decision to DC catheter Insertion date: 08/25/18 Insertion time: 14:20 Removal date: 08/29/18 Removal time: 12:30 Results - Labs CBC & Chem 7: 08/31/18 04:40 08/31/18 18:36 Laboratory Results - last 24 hr 08/26/18 08/30/18 08/30/18 04:00 12:01 18:30 WBC RBC Hgb Hct MCV MCH MCHC RDW Plt Count MPV Prelim Diff (Auto) Neut % (Auto) Lymph % (Auto) [place] % (Auto) Eos % (Auto) Baso % (Auto) Neut # (Auto) Lymph # (Auto) [place] # (Auto) Eos # (Auto) Baso # (Auto) WBC Differential Seg Neuts % (Manual) Band Neuts % (Manual) Lymphocytes % (Manual) Monocytes % (Manual) Metamyelocytes % (Man) Myelocytes % (Man) Promyelocytes % (Man) Abs Neuts (Manual) Differential Comment Toxic Granulation Platelet Estimate Platelet Morphology Sodium Potassium Chloride Carbon Dioxide Anion Gap BUN Creatinine Estimated GFR POC Glucose 168 H 175 H Random Glucose Calcium Phosphorus Magnesium Total Bilirubin AST ALT Alkaline Phosphatase Total Protein Albumin C. pneumoniae IgG Titer 1:64 H C. pneumoniae IgA Titer 1:16 H C. pneumoniae IgM Titer <1:10 C. pneumoniae Ab Interp Past infection 08/30/18 08/31/18 08/31/18 20:50 00:05 04:40 WBC 26.1 H RBC 4.01 L Hgb 12.6 L Hct 38.1 L MCV 95.0 MCH 31.3 MCHC 33.0 RDW 16.1 Plt Count 295 MPV 8.8 Prelim Diff (Auto) Slide review pending Neut % (Auto) 92.7 H Lymph % (Auto) 3.5 L [place] % (Auto) 3.6 Eos % (Auto) 0.2 Baso % (Auto) 0.0 Neut # (Auto) 24.2 H Lymph # (Auto) 0.9 L [place] # (Auto) 0.9 Eos # (Auto) 0.1 Baso # (Auto) 0.0 WBC Differential Manual diff final Seg Neuts % (Manual) 84 H Band Neuts % (Manual) 1 Lymphocytes % (Manual) 5 L Monocytes % (Manual) 5 Metamyelocytes % (Man) 2 H Myelocytes % (Man) 2 H Promyelocytes % (Man) 1 H Abs Neuts (Manual) 23.5 H Differential Comment . Toxic Granulation 1+ H Platelet Estimate Normal Platelet Morphology Normal Sodium Potassium 3.5 Chloride Carbon Dioxide Anion Gap BUN Creatinine Estimated GFR POC Glucose 193 H Random Glucose Calcium Phosphorus Magnesium Total Bilirubin AST ALT Alkaline Phosphatase Total Protein Albumin C. pneumoniae IgG Titer C. pneumoniae IgA Titer C. pneumoniae IgM Titer C. pneumoniae Ab Interp 08/31/18 04:40 WBC RBC Hgb Hct MCV MCH MCHC RDW Plt Count MPV Prelim Diff (Auto) Neut % (Auto) Lymph % (Auto) [place] % (Auto) Eos % (Auto) Baso % (Auto) Neut # (Auto) Lymph # (Auto) [place] # (Auto) Eos # (Auto) Baso # (Auto) WBC Differential Seg Neuts % (Manual) Band Neuts % (Manual) Lymphocytes % (Manual) Monocytes % (Manual) Metamyelocytes % (Man) Myelocytes % (Man) Promyelocytes % (Man) Abs Neuts (Manual) Differential Comment Toxic Granulation Platelet Estimate Platelet Morphology Sodium 160 H* Potassium 4.0 Chloride 122 H Carbon Dioxide 28.7 Anion Gap 9 BUN 86 H Creatinine 1.44 H Estimated GFR 47 L POC Glucose Random Glucose 162 H Calcium 9.2 Phosphorus 4.0 Magnesium 3.1 H Total Bilirubin 1.0 AST 30 ALT 40 Alkaline Phosphatase 79 Total Protein 6.1 L Albumin 2.1 L C. pneumoniae IgG Titer C. pneumoniae IgA Titer C. pneumoniae IgM Titer C. pneumoniae Ab Interp Microbiology 08/27/18 12:27 Blood - Peripheral Aerobic Blood Culture - Preliminary No growth in 3 days 08/27/18 12:27 Blood - Peripheral Anaerobic Blood Culture - Preliminary No growth in 3 days 08/27/18 12:21 Blood - Peripheral Aerobic Blood Culture - Preliminary No growth in 3 days 08/27/18 12:21 Blood - Peripheral Anaerobic Blood Culture - Preliminary No growth in 3 days 08/25/18 09:40 Blood - Peripheral Aerobic Blood Culture - Final No growth in 5 days 08/25/18 09:40 Blood - Peripheral Anaerobic Blood Culture - Final No growth in 5 days 08/25/18 09:45 Blood - Peripheral Aerobic Blood Culture - Final Haemophilus influenzae 08/25/18 09:45 Blood - Peripheral Anaerobic Blood Culture - Final No growth in 5 days - Imaging Impressions Chest X-Ray 08/31/18 00:00 CONCLUSION: Bilateral airspace disease in the lungs with slight improvement in the right lung base compared with August 29. 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 Continue Rocephin. Atrial fibrillation with rapid ventricular response currently rate controlled Elevated troponin History of essential hypertension Hyperlipidemia Lactic acidosis Trop 0.27 on admission, most recent 0.08, no longer trending Echo: EF 45%, RV enlargement/ dysfunction, PAP 38 mm Hg Continue metoprolol at 50 mg BID s/p Cardene drip BID lasix 20 mg, diuresing well Delirium, sundowning: Hyponatremia likely contributing: Start D5w Delirium precautions (lights on/ shades up during the day, limit nighttime disruptions, frequent reorientation, use hearing aids) Trial of a dose of Seroquel tonight. Hypernatremia: - Start D5w. Follow up BMP later today. Acute hyperglycemia Chronic steroid use Low TSH SSI TSH was 0.094, normal T4, T3 low-- would recheck in 4 weeks after critical illness has resolved On steroids as noted above Elevated creatinine question acute kidney injury normalizing BID lasix dosing No urine eosinophils noted Renal ultrasound - bilateral renal cyst. Possible hemorrhagic left renal cyst Avoid nephrotoxic medication Monitor urine output Accurate I's and O's Prophylaxis -GI -pantoprazole -DVT -SCD/apixaban
[2018-08-31] MEDS ORDERED: Baclofen 10 MG Tablet PO PRN (10:42)
[2018-08-31] MEDS ORDERED: Pharmacy Ordered Lab Info OTHER ONE (10:45)
--- NOTE | 2018-08-31 10:53 | MB ---
cc: Misael Church MD DATE: 08/31/2018 REQUESTING PHYSICIAN: Shawn Matta MD. REASON: Sepsis/pneumonia, antibiotic management. HISTORY OF PRESENT ILLNESS: This is an 83-year-old white male who was admitted to the hospital on 08/25/2018. The patient presented with shortness of breath. His temperature was normal and his white blood cell count was elevated at 18.6 on admission. Chest x-ray showed bilateral infiltrates. The patient was put on antibiotics. He was intubated and was subsequently extubated on 08/28/2018. The patient's is at bedside. She notes that he was doing well before admission. She notes that the week that he was admitted to the hospital in prior days he played 18 holes of golf and after that he cleaned out his shed and motorcycle at home and he may have been exposed to mold. The patient was noted to be in atrial fibrillation with rapid ventricular response when he was admitted. He has received intravenous antibiotics and continues to receive ceftriaxone and azithromycin. Sputum culture has been negative. Blood culture on 08/25/2018 had 1 bottle with Haemophilus influenza. Urine legionella antigen was negative and urine streptococcal pneumonia antigen was negative. Repeated blood culture on 08/27/2018 had no growth. The patient's white blood cell count has remained elevated. He has been treated with steroids and his reports that he takes steroids on a daily basis. His white count on admission was 18.6 and today it is 26.1. He has no fever. His chest x-ray is showing bilateral airspace disease with slight improvement in the right lung base. The patient is currently lying in bed and he appears confused. He wants to be taken out from bed, so he can go home. He thinks he is in [place] where he is originally from. His is at bedside and she states that he was doing much better yesterday from mental status standpoint and she states that he has not slept for the past couple of nights. 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 ALLERGIES: AMIODARONE. MEDICATIONS: 1. Prednisone. 2. Potassium. 3. Lactinex 4. Lasix. 5. Eliquis. 6. Albuterol. 7. Ceftriaxone. SOCIAL HISTORY: Former smoker. Positive alcohol use. No illicit drugs. FAMILY HISTORY: Noncontributory. REVIEW OF SYSTEMS: Difficult to obtain because of the patient's mental status. PHYSICAL EXAMINATION: GENERAL: This is a moderately obese male who is in no acute distress. He is confused, but awake. VITAL SIGNS: Temperature 97.6, BP 148/84, respirations 28, heart rate 87. HEENT: Head is atraumatic. Extraocular muscles intact. Pupils reactive to light, without icterus. Oropharynx slightly dry mucosa. NECK: Supple, without adenopathy. LUNGS: Coarse breath sounds with bilaterally. HEART: Regular S1, S2. No murmur audible. ABDOMEN: Obese, soft, tympanic, nontender. Decreased bowel sounds. RECTAL: Not performed. EXTREMITIES: No clubbing, cyanosis, or edema. SKIN: No rash. The face and neck have a red hue. NEUROLOGIC: Unable to fully assess. The patient is confused. PSYCHIATRIC: The patient is calm. LABORATORY DATA: WBC 22.9, platelets 252, hemoglobin 11.5, 92% neutrophils, 4% lymphocytes. Estimated GFR 47, creatinine 1.44, sodium 160. LFTs normal. IMPRESSION: 1. Pneumonia. 2. Altered mental status. 3. Leukocytosis. 4. The elevated white blood cell count could possibly be associated with steroids also. Part of the altered mental status could be due to ICU psychosis. RECOMMENDATIONS: 1. Continue ceftriaxone. 2. Monitor white blood cell count. 3. Monitor clinical status. 4. Monitor temperature and obtain new cultures if the temperatures spikes. Thank you for this consultation. I will follow the patient's progress with you. MD ROSE Pinon/naren , 10:10 AM , 10:23 AM VINICIO
[2018-08-31] MEDS: Dextrose 5% in Water Inj 1,000 ML IV.CONT SCH ×2 (11:34→22:12)
--- NOTE | 2018-08-31 15:34 | P.PNPL ---
Subjective Interval history: 83 YOWM with Pn, Sepsis Weaned to 5LNC mild sob, tired no fever Physical Exam Vital signs: Vital Signs 08/30/18 15:45 08/30/18 16:00 08/30/18 16:04 Temperature 97.9 F Pulse Rate 92 H 90 90 Respiratory Rate 33 H 31 H 31 H Blood Pressure 125/77 Pulse Oximetry 89 L 90 L 90 L 08/30/18 16:15 08/30/18 16:30 08/30/18 16:45 Temperature Pulse Rate 88 92 H 89 Respiratory Rate 32 H 32 H 32 H Blood Pressure Pulse Oximetry 90 L 90 L 90 L 08/30/18 17:00 08/30/18 17:15 08/30/18 17:30 Temperature Pulse Rate 90 87 86 Respiratory Rate 32 H 30 H 31 H Blood Pressure 149/83 H Pulse Oximetry 90 L 91 L 90 L 08/30/18 17:45 08/30/18 18:00 08/30/18 18:15 Temperature Pulse Rate 92 H 92 H 105 H Respiratory Rate 30 H 33 H 31 H Blood Pressure 152/86 H Pulse Oximetry 91 L 91 L 91 L 08/30/18 19:00 08/30/18 20:00 08/30/18 21:00 Temperature 97.5 F L Pulse Rate 92 H 94 H 100 H Respiratory Rate 29 H 32 H 33 H Blood Pressure 141/73 H 146/73 H 138/89 Pulse Oximetry 91 L 91 L 90 L 08/30/18 21:15 08/30/18 22:00 08/30/18 23:00 Temperature Pulse Rate 83 83 Respiratory Rate 22 36 H 30 H Blood Pressure 153/93 H 138/91 H Pulse Oximetry 90 L 92 L 08/31/18 00:00 08/31/18 01:00 08/31/18 02:00 Temperature 97.6 F Pulse Rate 84 89 86 Respiratory Rate 34 H 34 H 33 H Blood Pressure 139/92 H 149/84 H 135/79 Pulse Oximetry 91 L 90 L 91 L 08/31/18 03:00 08/31/18 04:00 08/31/18 05:00 Temperature 97.6 F Pulse Rate 86 92 H 88 Respiratory Rate 32 H 38 H 30 H Blood Pressure 142/92 H 149/83 H 149/85 H Pulse Oximetry 91 L 91 L 92 L 08/31/18 06:00 08/31/18 06:03 08/31/18 07:00 Temperature Pulse Rate 99 H 94 H 88 Respiratory Rate 45 H 39 H 30 H Blood Pressure 168/116 H 154/97 H 149/104 H Pulse Oximetry 88 L 92 L 96 08/31/18 07:03 08/31/18 08:00 08/31/18 09:00 Temperature 98.7 F Pulse Rate 91 H 92 H 94 H Respiratory Rate 33 H 32 H 35 H Blood Pressure 155/98 H 148/84 H 152/89 H Pulse Oximetry 94 L 94 L 92 L 08/31/18 10:06 08/31/18 11:00 08/31/18 12:00 Temperature 97.8 F 97.6 F Pulse Rate 89 76 Respiratory Rate 38 H 32 H Blood Pressure 134/86 133/92 H Pulse Oximetry 94 L 91 L 90 L 08/31/18 13:00 08/31/18 13:51 08/31/18 14:00 Temperature 98.8 F Pulse Rate 77 87 Respiratory Rate 32 H 33 H Blood Pressure 145/111 H 154/93 H Pulse Oximetry 97 96 08/31/18 14:01 08/31/18 15:00 Temperature Pulse Rate 88 80 Respiratory Rate 38 H 24 Blood Pressure 164/82 H Pulse Oximetry 92 L 95 Intake & Output 08/30/18 08/31/18 08/31/18 18:59 06:59 18:59 Intake Total 900 / 900 200 / 200 200 / 200 Output Total 900 / 900 400 / 400 Balance 0 / 0 -200 / -200 200 / 200 Weight 103.7 kg Intake: IV 300 / 300 200 / 200 200 / 200 KCl 20 mEq Premix Inj 20 meq In 200 / 200 100 ml @ 50 mls/hr IV.SIG Q2H PRN Rx#:[id number] KCl 40 mEq Premix Inj 40 meq In 200 / 200 100 ml @ 25 mls/hr IV.SIG Q2H PRN Rx#:[id number] Rocephin Inj 1,000 MG In NS Inj 100 / 100 200 / 200 100 ML @ 200 mls/hr IV.SIG Q12H BRIANNA Rx#:[id number] Oral 600 / 600 Output: Urine 900 / 900 400 / 400 Other: # Voids 2 # Incontinent Voids 1 Date of Last Bowel Movement 08/30/18 08/31/18 08/31/18 GENERAL: Elderly Wm, Mild sob SKIN: Warm and dry. HEAD: Normocephalic. EYES: No scleral icterus. No injection or drainage. NECK: Supple, trachea midline. No JVD or lymphadenopathy. CARDIOVASCULAR: Regular rate and rhythm without murmurs, gallops, or rubs. RESPIRATORY: Breath sounds equal bilaterally. No accessory muscle use. GASTROINTESTINAL: Abdomen soft, non-tender, nondistended. MUSCULOSKELETAL: No cyanosis, or edema. BACK: Nontender without obvious deformity. No CVA tenderness. - Urinary Catheter Management Indwelling Temp Sensing Catheter Cath placed during this visit: yes, but has since been removed by the nurse Reason for continuing: Decision to DC catheter Insertion date: 08/25/18 Insertion time: 14:20 Removal date: 08/29/18 Removal time: 12:30 Assessment and Plan - Plan IMPRESSION: Resp Insufficiency COPD Pneumonia HTN AF PLAN: Cont Abx Aerosol nebs Supplement 02 to keep sat >90% BIPAP at night and prn Eliquis BID Breo Ellipta 200/25 daily
[2018-08-31] MEDS ORDERED: QUEtiapine 25 MG Tablet PO ONE (18:30)
[2018-08-31 19:46] LABS: Calcium 9.2 mg/dL (8.5-10.1); Carbon Dioxide 26.9 meq/L (21.0-32.0); Potassium 3.8 meq/L (3.5-5.1)
[2018-09-01] MEDS: Oral Hygiene Kit OROPHARYNG SCH ×3 (00:36→16:50)
[2018-09-01] MEDS: Insulin NovoLOG Aspart Correctional Sugar Inj SQ SCH ×4 (00:36→18:31)
[2018-09-01] MEDS: Artificial Tears Opth Drops 15 ML Bottle EACH EYE SCH ×4 (00:36→22:22)
[2018-09-01 04:15] LABS: Hemoglobin 11.5 gm/dL (13.0-17.0); Mean Corpuscular Hemoglobin 31.5 pg (27.0-34.0); Mean Corpuscular Volume 98.3 fL (80.0-100.0); Mean Platelet Volume 9.1 fL (7.0-11.0); Platelet Count 219 th/mm3 (150-450); Red Blood Count 3.67 mil/mm3 (4.50-5.90); Red Cell Distribution Width 16.4 % (11.6-17.2); White Blood Count 23.3 th/mm3 (4.0-11.0)
[2018-09-01 04:36] LABS: Calcium 8.6 mg/dL (8.5-10.1); Carbon Dioxide 27.2 meq/L (21.0-32.0); Potassium 3.5 meq/L (3.5-5.1)
[2018-09-01] MEDS: Potassium Chlor 20 mEq Premix 20 MEQ/100 ML PIGGYBACK IV.SIG PRN ×2 (04:55→06:50)
[2018-09-01] MEDS: Senna/Docusate Sodium 8.6/50 MG Tablet PO SCH ×2 (09:00→20:17)
[2018-09-01] MEDS: Pantoprazole Inj 40 MG Vial IV.PUSH SCH (10:14)
[2018-09-01] MEDS: predniSONE 10 MG Tablet PO SCH (10:15)
[2018-09-01] MEDS: Metoprolol Tartrate 25 MG Tablet PO SCH ×2 (10:36→20:20)
[2018-09-01] MEDS: Chlorhexidine 0.12% Oral Kit 15 ML UDC OROPHARYNG SCH ×2 (10:39→19:53)
--- NOTE | 2018-09-01 10:41 | P.PNIM ---
Subjective Interval history: Patient had some confusions overnight and had Seroquel. He slept better. Patient is a slightly better today. More awake. Sodium is still elevated. Discussed with his . Physical Exam Vital signs: Vital Signs 08/31/18 11:00 08/31/18 12:00 08/31/18 13:00 Temperature 97.8 F 97.6 F 98.8 F Pulse Rate 89 76 77 Respiratory Rate 38 H 32 H 32 H Blood Pressure 134/86 133/92 H 145/111 H Pulse Oximetry 91 L 90 L 97 08/31/18 13:51 08/31/18 14:00 08/31/18 14:01 Temperature Pulse Rate 87 88 Respiratory Rate 33 H 38 H Blood Pressure 154/93 H Pulse Oximetry 96 92 L 08/31/18 15:00 08/31/18 16:00 08/31/18 16:01 Temperature Pulse Rate 80 91 H 87 Respiratory Rate 24 37 H 30 H Blood Pressure 164/82 H 205/109 H Pulse Oximetry 95 94 L 93 L 08/31/18 16:05 08/31/18 17:00 08/31/18 17:12 Temperature 98.9 F Pulse Rate 84 92 H 94 H Respiratory Rate 31 H 44 H 43 H Blood Pressure 146/77 H 148/104 H 163/90 H Pulse Oximetry 95 92 L 90 L 08/31/18 18:00 08/31/18 19:00 08/31/18 19:58 Temperature Pulse Rate 90 83 Respiratory Rate 35 H 26 H Blood Pressure 133/91 H 167/93 H Pulse Oximetry 95 94 L 92 L 08/31/18 20:00 08/31/18 21:00 08/31/18 22:00 Temperature 98.5 F Pulse Rate 86 76 69 Respiratory Rate 24 23 23 Blood Pressure 110/69 113/65 109/72 Pulse Oximetry 92 L 96 96 08/31/18 23:00 09/01/18 00:00 09/01/18 01:00 Temperature 97.4 F L Pulse Rate 82 85 Respiratory Rate 24 26 H Blood Pressure 138/91 H 131/82 122/75 Pulse Oximetry 96 96 96 09/01/18 01:35 09/01/18 02:00 09/01/18 02:02 Temperature Pulse Rate 73 69 Respiratory Rate 22 24 Blood Pressure 116/70 Pulse Oximetry 96 96 97 09/01/18 03:00 09/01/18 04:00 09/01/18 04:05 Temperature 97.5 F L Pulse Rate 71 72 Respiratory Rate 22 23 Blood Pressure 119/79 121/78 Pulse Oximetry 97 97 97 09/01/18 05:00 09/01/18 06:00 09/01/18 09:17 Temperature Pulse Rate 71 72 Respiratory Rate 24 21 Blood Pressure 131/86 103/62 Pulse Oximetry 97 95 94 L Intake & Output 08/31/18 09/01/18 09/01/18 18:59 06:59 18:59 Intake Total 680 / 680 1150 / 1150 Output Total 375 / 375 200 / 200 Balance 305 / 305 950 / 950 Weight 103.1 kg Intake: IV 200 / 200 1100 / 1100 D5W Inj 1,000 ML @ 100 mls/hr 1000 / 1000 IV.CONT .Q10H BRIANNA Rx#:[id number] KCl 20 mEq Premix Inj 20 meq In 100 / 100 100 ml @ 50 mls/hr IV.SIG Q2H PRN Rx#:[id number] Rocephin Inj 1,000 MG In NS Inj 200 / 200 100 ML @ 200 mls/hr IV.SIG Q12H BRIANNA Rx#:[id number] Oral 480 / 480 50 / 50 Output: Urine 375 / 375 200 / 200 Other: # Voids 4 # Incontinent Voids 3 Date of Last Bowel Movement 08/31/18 09/01/18 # Bowel Movements 2 # Incontinent Bowel Movements 2 Narrative: General : Elderly W/M alert, On a N/C O2 5 L CARDIOVASCULAR: Normal rate, Irregular. RESPIRATORY: Bibasilar crackles. Scattered wheezes. GASTROINTESTINAL: Abdomen soft, non-tender, nondistended. MUSCULOSKELETAL: Extremities without edema. NEUROLOGICAL: Grossly nonfocal. - Urinary Catheter Management Indwelling Temp Sensing Catheter Cath placed during this visit: yes, but has since been removed by the nurse Reason for continuing: Decision to DC catheter Insertion date: 08/25/18 Insertion time: 14:20 Removal date: 08/29/18 Removal time: 12:30 Results - Labs CBC & Chem 7: 09/01/18 03:47 09/01/18 03:47 Laboratory Results - last 24 hr 08/31/18 08/31/18 08/31/18 12:45 18:12 18:36 WBC RBC Hgb Hct MCV MCH MCHC RDW Plt Count MPV Sodium 160 H* Potassium 3.8 Chloride 125 H Carbon Dioxide 26.9 Anion Gap 8 BUN 85 H Creatinine 1.52 H Estimated GFR 44 L POC Glucose 197 H 127 H Random Glucose 120 H Calcium 9.2 08/31/18 08/31/18 09/01/18 23:30 23:33 03:47 WBC 23.3 H RBC 3.67 L Hgb 11.5 L Hct 36.0 L MCV 98.3 MCH 31.5 MCHC 32.0 RDW 16.4 Plt Count 219 MPV 9.1 Sodium 159 H* Potassium Chloride Carbon Dioxide Anion Gap BUN Creatinine Estimated GFR POC Glucose 164 H Random Glucose Calcium 09/01/18 09/01/18 03:47 06:05 WBC RBC Hgb Hct MCV MCH MCHC RDW Plt Count MPV Sodium 160 H* Potassium 3.5 Chloride 126 H Carbon Dioxide 27.2 Anion Gap 7 BUN 77 H Creatinine 1.30 Estimated GFR 53 L POC Glucose 162 H Random Glucose 175 H Calcium 8.6 Microbiology 08/27/18 12:27 Blood - Peripheral Aerobic Blood Culture - Preliminary No growth in 4 days 08/27/18 12:27 Blood - Peripheral Anaerobic Blood Culture - Preliminary No growth in 4 days 08/27/18 12:21 Blood - Peripheral Aerobic Blood Culture - Preliminary No growth in 4 days 08/27/18 12:21 Blood - Peripheral Anaerobic Blood Culture - Preliminary No growth in 4 days Assessment and Plan - Plan 83 Y/O male with Acute respiratory failure secondary to community acquired pneumonia History of COPD 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 Continue Rocephin. Hypernatremia: -Increase D5W to 125 cc/h. Follow up BMP later today Atrial fibrillation with rapid ventricular response currently rate controlled Elevated troponin History of essential hypertension Hyperlipidemia Lactic acidosis Trop 0.27 on admission, most recent 0.08, no longer trending Echo: EF 45%, RV enlargement/ dysfunction, PAP 38 mm Hg Continue metoprolol at 50 mg BID s/p Cardene drip Hold Lasix. Delirium, : Hyponatremia likely contributing: Start D5w Delirium precautions (lights on/ shades up during the day, limit nighttime disruptions, frequent reorientation, use hearing aids) Seroquel at night as needed. Acute hyperglycemia Chronic steroid use Low TSH SSI TSH was 0.094, normal T4, T3 low-- would recheck in 4 weeks after critical illness has resolved On steroids as noted above Elevated creatinine question acute kidney injury, normalizing Hold Lasix, improving No urine eosinophils noted Renal ultrasound - bilateral renal cyst. Possible hemorrhagic left renal cyst Avoid nephrotoxic medication Monitor urine output Accurate I's and O's Prophylaxis -GI -pantoprazole -DVT -SCD/apixaban
--- NOTE | 2018-09-01 16:45 | P.PNPL ---
Subjective Interval history: 83 YOWM with Pn, Sepsis Weaned to 5LNC mild sob, tired no fever Did't use CPAP at night at BS Physical Exam Vital signs: Vital Signs 08/31/18 17:00 08/31/18 17:12 08/31/18 18:00 Temperature Pulse Rate 92 H 94 H 90 Respiratory Rate 44 H 43 H 35 H Blood Pressure 148/104 H 163/90 H 133/91 H Pulse Oximetry 92 L 90 L 95 08/31/18 19:00 08/31/18 19:58 08/31/18 20:00 Temperature 98.5 F Pulse Rate 83 86 Respiratory Rate 26 H 24 Blood Pressure 167/93 H 110/69 Pulse Oximetry 94 L 92 L 92 L 08/31/18 21:00 08/31/18 22:00 08/31/18 23:00 Temperature Pulse Rate 76 69 82 Respiratory Rate 23 23 24 Blood Pressure 113/65 109/72 138/91 H Pulse Oximetry 96 96 96 09/01/18 00:00 09/01/18 01:00 09/01/18 01:35 Temperature 97.4 F L Pulse Rate 85 Respiratory Rate 26 H Blood Pressure 131/82 122/75 Pulse Oximetry 96 96 96 09/01/18 02:00 09/01/18 02:02 09/01/18 03:00 Temperature Pulse Rate 73 69 71 Respiratory Rate 22 24 22 Blood Pressure 116/70 119/79 Pulse Oximetry 96 97 97 09/01/18 04:00 09/01/18 04:05 09/01/18 05:00 Temperature 97.5 F L Pulse Rate 72 71 Respiratory Rate 23 24 Blood Pressure 121/78 131/86 Pulse Oximetry 97 97 97 09/01/18 06:00 09/01/18 07:00 09/01/18 08:00 Temperature 98.1 F Pulse Rate 72 71 71 Respiratory Rate 21 23 20 Blood Pressure 103/62 123/68 114/67 Pulse Oximetry 95 96 96 09/01/18 09:00 09/01/18 09:17 09/01/18 10:00 Temperature Pulse Rate 71 75 Respiratory Rate 54 H 25 H Blood Pressure 132/88 135/76 Pulse Oximetry 95 94 L 94 L 09/01/18 11:00 09/01/18 12:00 09/01/18 13:00 Temperature 97.3 F L Pulse Rate 80 81 64 Respiratory Rate 31 H 27 H 20 Blood Pressure 135/80 144/79 H 116/58 L Pulse Oximetry 92 L 93 L 96 09/01/18 14:00 Temperature Pulse Rate 76 Respiratory Rate 25 H Blood Pressure 154/87 H Pulse Oximetry 96 Intake & Output 08/31/18 09/01/18 09/01/18 18:59 06:59 18:59 Intake Total 680 / 680 1150 / 1150 Output Total 375 / 375 200 / 200 Balance 305 / 305 950 / 950 Weight 103.1 kg Intake: IV 200 / 200 1100 / 1100 D5W Inj 1,000 ML @ 100 mls/hr 1000 / 1000 IV.CONT .Q10H BRIANNA Rx#:[id number] KCl 20 mEq Premix Inj 20 meq In 100 / 100 100 ml @ 50 mls/hr IV.SIG Q2H PRN Rx#:[id number] Rocephin Inj 1,000 MG In NS Inj 200 / 200 100 ML @ 200 mls/hr IV.SIG Q12H BRIANNA Rx#:[id number] Oral 480 / 480 50 / 50 Output: Urine 375 / 375 200 / 200 Other: # Voids 4 # Incontinent Voids 3 Date of Last Bowel Movement 08/31/18 09/01/18 09/01/18 # Bowel Movements 2 # Incontinent Bowel Movements 2 GENERAL: Elderly WM, mild sob SKIN: Warm and dry. HEAD: Normocephalic. EYES: No scleral icterus. No injection or drainage. NECK: Supple, trachea midline. No JVD or lymphadenopathy. CARDIOVASCULAR: Regular rate and rhythm without murmurs, gallops, or rubs. RESPIRATORY: Breath sounds equal bilaterally. No accessory muscle use. Scattered rhonchi GASTROINTESTINAL: Abdomen soft, non-tender, nondistended. MUSCULOSKELETAL: No cyanosis, or edema. BACK: Nontender without obvious deformity. No CVA tenderness. - Urinary Catheter Management Indwelling Temp Sensing Catheter Cath placed during this visit: yes, but has since been removed by the nurse Reason for continuing: Decision to DC catheter Insertion date: 08/25/18 Insertion time: 14:20 Removal date: 08/29/18 Removal time: 12:30 Assessment and Plan - Plan IMPRESSION: Resp Insufficiency COPD Pneumonia HTN AF PLAN: Cont Abx Aerosol nebs Supplement 02 to keep sat >90% Eliquis BID Breo Ellipta 200/25 daily Encouraged to use CPAP at night DW pt and his at BS Dr.D'Souza damon FU in AM
[2018-09-01] MEDS: Dextrose 5% in Water Inj 1,000 ML IV.CONT SCH ×2 (18:32→19:34)
[2018-09-01 20:29] LABS: Calcium 8.8 mg/dL (8.5-10.1); Carbon Dioxide 27.2 meq/L (21.0-32.0); Potassium 4.2 meq/L (3.5-5.1)
[2018-09-01] MEDS ORDERED: QUEtiapine 25 MG Tablet PO PRN (21:00)
[2018-09-02] MEDS: Oral Hygiene Kit OROPHARYNG SCH ×5 (00:30→23:31)
[2018-09-02] MEDS: Insulin NovoLOG Aspart Correctional Sugar Inj SQ SCH ×4 (00:54→19:00)
[2018-09-02] MEDS: Dextrose 5% in Water Inj 1,000 ML IV.CONT SCH ×4 (01:59→23:30)
[2018-09-02 06:18] LABS: Hematocrit 36.7 % (39.0-51.0); Hemoglobin 11.8 gm/dL (13.0-17.0); Mean Corpuscular Hemoglobin 31.5 pg (27.0-34.0); Mean Corpuscular Volume 98.5 fL (80.0-100.0); Mean Platelet Volume 9.1 fL (7.0-11.0); Platelet Count 211 th/mm3 (150-450); Red Blood Count 3.73 mil/mm3 (4.50-5.90); Red Cell Distribution Width 15.8 % (11.6-17.2); White Blood Count 27.1 th/mm3 (4.0-11.0)
[2018-09-02] MEDS: Artificial Tears Opth Drops 15 ML Bottle EACH EYE SCH ×3 (06:28→23:31)
[2018-09-02] MEDS: Senna/Docusate Sodium 8.6/50 MG Tablet PO SCH ×2 (10:16→20:13)
[2018-09-02] MEDS: predniSONE 10 MG Tablet PO SCH (10:16)
[2018-09-02] MEDS: Chlorhexidine 0.12% Oral Kit 15 ML UDC OROPHARYNG SCH ×2 (10:17→20:13)
[2018-09-02] MEDS: Metoprolol Tartrate 25 MG Tablet PO SCH ×2 (10:20→20:13)
--- NOTE | 2018-09-02 12:45 | P.PNIM ---
Subjective Interval history: Patient only used CPAP for a couple hours last night. Still having difficulties with breathing. He is very weak. Physical Exam Vital signs: Vital Signs 09/01/18 13:00 09/01/18 14:00 09/01/18 15:00 Temperature Pulse Rate 64 76 68 Respiratory Rate 20 25 H 22 Blood Pressure 116/58 L 154/87 H 145/80 H Pulse Oximetry 96 96 96 09/01/18 16:00 09/01/18 17:00 09/01/18 18:00 Temperature 98.3 F Pulse Rate 79 70 75 Respiratory Rate 31 H 21 21 Blood Pressure 172/87 H 125/75 146/80 H Pulse Oximetry 90 L 94 L 95 09/01/18 19:00 09/01/18 19:09 09/01/18 20:00 Temperature 97.5 F L Pulse Rate 85 84 92 H Respiratory Rate 28 H 27 H 28 H Blood Pressure 135/79 Pulse Oximetry 91 L 92 L 94 L 09/01/18 20:23 09/01/18 20:45 09/01/18 20:55 Temperature Pulse Rate 77 83 Respiratory Rate 29 H 16 Blood Pressure 131/78 Pulse Oximetry 93 L 98 09/01/18 21:00 09/01/18 22:00 09/01/18 23:00 Temperature Pulse Rate 76 79 71 Respiratory Rate 38 H 63 H 26 H Blood Pressure 137/75 144/90 H 129/65 Pulse Oximetry 96 95 94 L 09/02/18 00:00 09/02/18 01:00 09/02/18 01:10 Temperature 97.4 F L Pulse Rate 72 80 71 Respiratory Rate 19 25 H 23 Blood Pressure 128/78 125/69 Pulse Oximetry 96 96 98 09/02/18 02:00 09/02/18 03:00 09/02/18 04:00 Temperature 97.8 F Pulse Rate 72 79 78 Respiratory Rate 23 29 H 25 H Blood Pressure 125/78 142/69 H 128/80 Pulse Oximetry 95 92 L 97 09/02/18 05:00 09/02/18 05:04 09/02/18 06:00 Temperature Pulse Rate 94 H 83 84 Respiratory Rate 34 H 27 H 27 H Blood Pressure 171/105 H 140/69 141/86 H Pulse Oximetry 94 L 94 L 95 09/02/18 07:48 09/02/18 08:00 Temperature Pulse Rate 80 Respiratory Rate Blood Pressure Pulse Oximetry 97 Intake & Output 09/01/18 09/02/18 09/02/18 18:59 06:59 18:59 Intake Total 1660 / 1660 1999 1000 / 1000 Output Total 225 / 225 500 / 500 Balance 1435 / 1435 1500 / 1500 1000 / 1000 Weight 102.7 kg Intake: IV 999 1000 / 1000 D5W Inj 1,000 ML @ 125 mls/hr 999 1000 / 1000 IV.CONT .Q8H BRIANNA Rx#:[id number] Oral 660 / 660 Output: Urine 225 / 225 500 / 500 Other: # Voids 4 # Incontinent Voids 3 Date of Last Bowel Movement 09/01/18 09/01/18 09/01/18 Narrative: General : Elderly W/M alert, On a N/C O2 5 L CARDIOVASCULAR: Normal rate, Irregular. RESPIRATORY: Air movement is fair. Rhonchi and crackles at the bases. GASTROINTESTINAL: Abdomen soft, non-tender, nondistended. MUSCULOSKELETAL: Extremities without edema. NEUROLOGICAL: Grossly nonfocal. - Urinary Catheter Management Indwelling Temp Sensing Catheter Cath placed during this visit: yes, but has since been removed by the nurse Reason for continuing: Decision to DC catheter Insertion date: 08/25/18 Insertion time: 14:20 Removal date: 08/29/18 Removal time: 12:30 Results - Labs CBC & Chem 7: 09/02/18 05:55 09/01/18 19:27 Laboratory Results - last 24 hr 09/01/18 09/01/18 09/02/18 18:29 19:27 00:52 WBC RBC Hgb Hct MCV MCH MCHC RDW Plt Count MPV Sodium 154 H Potassium 4.2 Chloride 121 H Carbon Dioxide 27.2 Anion Gap 6 BUN 64 H Creatinine 1.25 Estimated GFR 55 L POC Glucose 142 H 188 H Random Glucose 201 H Calcium 8.8 09/02/18 09/02/18 09/02/18 05:55 06:25 12:29 WBC 27.1 H RBC 3.73 L Hgb 11.8 L Hct 36.7 L MCV 98.5 MCH 31.5 MCHC 32.0 RDW 15.8 Plt Count 211 MPV 9.1 Sodium Potassium Chloride Carbon Dioxide Anion Gap BUN Creatinine Estimated GFR POC Glucose 142 H 168 H Random Glucose Calcium Microbiology 08/27/18 12:27 Blood - Peripheral Aerobic Blood Culture - Final No growth in 5 days 08/27/18 12:27 Blood - Peripheral Anaerobic Blood Culture - Final No growth in 5 days 08/27/18 12:21 Blood - Peripheral Aerobic Blood Culture - Final No growth in 5 days 08/27/18 12:21 Blood - Peripheral Anaerobic Blood Culture - Final No growth in 5 days Assessment and Plan - Plan 83 Y/O male with Acute respiratory failure secondary to community acquired pneumonia History of COPD 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 Continue Rocephin. Encouraged the patient to use CPAP when he is sleeping. Hypernatremia: -Improving. Decrease D5W to 75 cc/h. Follow up BMP in a.m. Atrial fibrillation with rapid ventricular response currently rate controlled Elevated troponin History of essential hypertension Hyperlipidemia Lactic acidosis Trop 0.27 on admission, most recent 0.08, no longer trending Echo: EF 45%, RV enlargement/ dysfunction, PAP 38 mm Hg Continue metoprolol at 50 mg BID s/p Cardene drip Hold Lasix. Delirium, sundowning: Hyponatremia likely contributing: Improving. Delirium precautions (lights on/ shades up during the day, limit nighttime disruptions, frequent reorientation, use hearing aids) Seroquel at night as needed. Acute hyperglycemia Chronic steroid use Low TSH SSI TSH was 0.094, normal T4, T3 low-- would recheck in 4 weeks after critical illness has resolved On steroids as noted above Elevated creatinine question acute kidney injury, normalizing Stable No urine eosinophils noted Renal ultrasound - bilateral renal cyst. Possible hemorrhagic left renal cyst Avoid nephrotoxic medication Monitor urine output Accurate I's and O's Prophylaxis -GI -pantoprazole -DVT -SCD/apixaban Discharge Planning: Not yet stable for transfer to floor. Hopefully tomorrow.
--- NOTE | 2018-09-02 13:06 | P.PNID ---
Subjective Remarks: Patient is up in bedside chair. He is confused. He is frustrated about not being allowed to walk. RN reports that his echo therapist could only get him up on the side of the bed but is not able to support his weight and walk. He was placed in the bedside recliner. Afebrile. Sputum culture is negative. Legionella antigen is negative. 83-year-old white male who was admitted to the hospital on 08/25/2018. The patient presented with shortness of breath. His temperature was normal and his white blood cell count was elevated at 18.6 on admission. Chest x-ray showed bilateral infiltrates. The patient was put on antibiotics. He was intubated and was subsequently extubated on 08/28/2018. 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 Allergies/Adverse Reactions: Allergies amiodarone Allergy (Intermediate, Verified 11/15/17 10:35) BLACK LUNGS Objective Vital Signs 09/01/18 13:00 09/01/18 14:00 09/01/18 15:00 Temperature Pulse Rate 64 76 68 Respiratory Rate 20 25 H 22 Blood Pressure 116/58 L 154/87 H 145/80 H Pulse Oximetry 96 96 96 09/01/18 16:00 09/01/18 17:00 09/01/18 18:00 Temperature 98.3 F Pulse Rate 79 70 75 Respiratory Rate 31 H 21 21 Blood Pressure 172/87 H 125/75 146/80 H Pulse Oximetry 90 L 94 L 95 09/01/18 19:00 09/01/18 19:09 09/01/18 20:00 Temperature 97.5 F L Pulse Rate 85 84 92 H Respiratory Rate 28 H 27 H 28 H Blood Pressure 135/79 Pulse Oximetry 91 L 92 L 94 L 09/01/18 20:23 09/01/18 20:45 09/01/18 20:55 Temperature Pulse Rate 77 83 Respiratory Rate 29 H 16 Blood Pressure 131/78 Pulse Oximetry 93 L 98 09/01/18 21:00 09/01/18 22:00 09/01/18 23:00 Temperature Pulse Rate 76 79 71 Respiratory Rate 38 H 63 H 26 H Blood Pressure 137/75 144/90 H 129/65 Pulse Oximetry 96 95 94 L 09/02/18 00:00 09/02/18 01:00 09/02/18 01:10 Temperature 97.4 F L Pulse Rate 72 80 71 Respiratory Rate 19 25 H 23 Blood Pressure 128/78 125/69 Pulse Oximetry 96 96 98 09/02/18 02:00 09/02/18 03:00 09/02/18 04:00 Temperature 97.8 F Pulse Rate 72 79 78 Respiratory Rate 23 29 H 25 H Blood Pressure 125/78 142/69 H 128/80 Pulse Oximetry 95 92 L 97 09/02/18 05:00 09/02/18 05:04 09/02/18 06:00 Temperature Pulse Rate 94 H 83 84 Respiratory Rate 34 H 27 H 27 H Blood Pressure 171/105 H 140/69 141/86 H Pulse Oximetry 94 L 94 L 95 09/02/18 07:48 09/02/18 08:00 Temperature Pulse Rate 80 Respiratory Rate Blood Pressure Pulse Oximetry 97 Intake & Output 09/01/18 09/02/18 09/02/18 18:59 06:59 18:59 Intake Total 1660 / 1660 1999 / 1999 1000 / 1000 Output Total 225 / 225 500 / 500 Balance 1435 / 1435 1500 / 1500 1000 / 1000 Weight 102.7 kg Intake: IV 1000 / 1000 1999 / 1999 1000 / 1000 D5W Inj 1,000 ML @ 125 mls/hr 1000 / 1000 2000 / 2000 1000 / 1000 IV.CONT .Q8H [facility] Rx#:[id number] Oral 660 / 660 Output: Urine 225 / 225 500 / 500 Other: # Voids 4 # Incontinent Voids 3 Date of Last Bowel Movement 09/01/18 09/01/18 09/01/18 08/27/18 12:27 Blood - Peripheral Aerobic Blood Culture - Final No growth in 5 days 08/27/18 12:27 Blood - Peripheral Anaerobic Blood Culture - Final No growth in 5 days 08/27/18 12:21 Blood - Peripheral Aerobic Blood Culture - Final No growth in 5 days 08/27/18 12:21 Blood - Peripheral Anaerobic Blood Culture - Final No growth in 5 days 08/25/18 09:40 Blood - Peripheral Aerobic Blood Culture - Final No growth in 5 days 08/25/18 09:40 Blood - Peripheral Anaerobic Blood Culture - Final No growth in 5 days 08/25/18 09:45 Blood - Peripheral Aerobic Blood Culture - Final Haemophilus influenzae 08/25/18 09:45 Blood - Peripheral Anaerobic Blood Culture - Final No growth in 5 days Lab - Hematology Results 09/01/18 09/02/18 03:47 05:55 WBC 23.3 H 27.1 H RBC 3.67 L 3.73 L Hgb 11.5 L 11.8 L Hct 36.0 L 36.7 L MCV 98.3 98.5 MCH 31.5 31.5 MCHC 32.0 32.0 RDW 16.4 15.8 Plt Count 219 211 MPV 9.1 9.1 Lab - Chemistry Results 08/31/18 08/31/18 08/31/18 18:12 18:36 23:30 Sodium 160 H* 159 H* Potassium 3.8 Chloride 125 H Carbon Dioxide 26.9 Anion Gap 8 BUN 85 H Creatinine 1.52 H Estimated GFR 44 L POC Glucose 127 H Random Glucose 120 H Calcium 9.2 08/31/18 09/01/18 09/01/18 23:33 03:47 06:05 Sodium 160 H* Potassium 3.5 Chloride 126 H Carbon Dioxide 27.2 Anion Gap 7 BUN 77 H Creatinine 1.30 Estimated GFR 53 L POC Glucose 164 H 162 H Random Glucose 175 H Calcium 8.6 09/01/18 09/01/18 09/01/18 12:35 18:29 19:27 Sodium 154 H Potassium 4.2 Chloride 121 H Carbon Dioxide 27.2 Anion Gap 6 BUN 64 H Creatinine 1.25 Estimated GFR 55 L POC Glucose 182 H 142 H Random Glucose 201 H Calcium 8.8 09/02/18 09/02/18 09/02/18 00:52 06:25 12:29 Sodium Potassium Chloride Carbon Dioxide Anion Gap BUN Creatinine Estimated GFR POC Glucose 188 H 142 H 168 H Random Glucose Calcium Imaging: ITS Impressions Abdomen/Bladder Ultrasound 08/25/18 00:00 CONCLUSION: 1. No evidence of hydronephrosis. 2. Bilateral renal cysts, mostly simple, with one cyst demonstrating homogeneous low level echoes, located in the midpole the left kidney and measuring 4 cm. Venous Doppler Study 08/25/18 00:00 CONCLUSION: 1. The study is negative for bilateral lower extremity deep venous thrombosis. Chest X-Ray 08/31/18 00:00 CONCLUSION: Bilateral airspace disease in the lungs with slight improvement in the right lung base compared with August 29. Physical Exam: PHYSICAL EXAMINATION: GENERAL: Patient in no acute distress. Awake and look a little lethargic. HEENT: Head is atraumatic. Extraocular muscles intact. Pupils reactive to light, without icterus. Oropharynx slightly dry mucosa. NECK: Supple, without adenopathy. LUNGS: Coarse breath sounds with bilaterally. Good air movement. HEART: Irregular S1, S2. No murmur audible. ABDOMEN: Obese, soft, tympanic, nontender. Decreased bowel sounds. EXTREMITIES: No clubbing, cyanosis, or edema. SKIN: No rash. The face and neck have a red hue. NEUROLOGIC: Nonfocal. Generalized weakness. PSYCHIATRIC: The patient is calm. Assessment and Plan - Plan IMPRESSION: 1. Pneumonia could be the cause of the one positive blood culture with Hemophilus. 2. Altered mental status. Appears to be improving. 3. Leukocytosis. Steroids which could increase the white count. 4. The altered mental status could be due to ICU psychosis. RECOMMENDATIONS: 1. Give Unasyn intravenous. I was not aware that the ceftriaxone was discontinued. 2. Monitor white blood cell count. 3. Monitor clinical status. 4. Monitor temperature and obtain new cultures if the temperatures spikes.
[2018-09-02] MEDS: Ampicillin/Sulbactam Inj 3 GM in Sodium Chloride 0.9% Inj 100 ML IV.SIG SCH ×2 (14:32→20:13)
--- NOTE | 2018-09-02 19:20 | P.PN ---
Subjective Interval history: Awake and confused. No fever. he is not using Bipap well at . states the mask is too Big. Physical Exam Vital signs: Vital Signs 09/01/18 20:00 09/01/18 20:23 09/01/18 20:45 Temperature 97.5 F L Pulse Rate 92 H 77 83 Respiratory Rate 28 H 29 H 16 Blood Pressure 131/78 Pulse Oximetry 94 L 93 L 09/01/18 20:55 09/01/18 21:00 09/01/18 22:00 Temperature Pulse Rate 76 79 Respiratory Rate 38 H 63 H Blood Pressure 137/75 144/90 H Pulse Oximetry 98 96 95 09/01/18 23:00 09/02/18 00:00 09/02/18 01:00 Temperature 97.4 F L Pulse Rate 71 72 80 Respiratory Rate 26 H 19 25 H Blood Pressure 129/65 128/78 Pulse Oximetry 94 L 96 96 09/02/18 01:10 09/02/18 02:00 09/02/18 03:00 Temperature Pulse Rate 71 72 79 Respiratory Rate 23 23 29 H Blood Pressure 125/69 125/78 142/69 H Pulse Oximetry 98 95 92 L 09/02/18 04:00 09/02/18 05:00 09/02/18 05:04 Temperature 97.8 F Pulse Rate 78 94 H 83 Respiratory Rate 25 H 34 H 27 H Blood Pressure 128/80 171/105 H 140/69 Pulse Oximetry 97 94 L 94 L 09/02/18 06:00 09/02/18 07:00 09/02/18 07:48 Temperature Pulse Rate 84 74 Respiratory Rate 27 H 21 Blood Pressure 141/86 H 91/55 L Pulse Oximetry 95 97 97 09/02/18 08:00 09/02/18 09:00 09/02/18 10:00 Temperature 97.6 F Pulse Rate 72 79 77 Respiratory Rate 21 28 H 22 Blood Pressure 112/68 121/79 110/65 Pulse Oximetry 95 93 L 94 L 09/02/18 10:12 09/02/18 11:00 09/02/18 12:00 Temperature 97.6 F Pulse Rate 82 86 66 Respiratory Rate 27 H 27 H 24 Blood Pressure 118/67 111/64 105/57 L Pulse Oximetry 96 92 L 97 09/02/18 13:00 09/02/18 14:00 09/02/18 15:00 Temperature Pulse Rate 71 72 62 Respiratory Rate 28 H 34 H 24 Blood Pressure 113/68 120/65 116/71 Pulse Oximetry 92 L 92 L 94 L 09/02/18 15:57 09/02/18 16:00 09/02/18 16:47 Temperature 98.3 F Pulse Rate 66 80 82 Respiratory Rate 18 24 29 H Blood Pressure 172/82 H 131/85 Pulse Oximetry 99 93 L 09/02/18 17:00 09/02/18 18:00 09/02/18 19:00 Temperature Pulse Rate 83 81 101 H Respiratory Rate 27 H 25 H 29 H Blood Pressure 126/68 133/75 127/80 Pulse Oximetry 94 L 94 L 96 Intake & Output 09/02/18 09/02/18 09/03/18 06:59 18:59 06:59 Intake Total 1999 / 1999 1100 / 1100 Output Total 500 / 500 Balance 1500 / 1500 1100 / 1100 Weight 102.7 kg Intake: IV 1999 1100 / 1100 D5W Inj 1,000 ML @ 125 mls/hr 1999 1000 / 1000 IV.CONT .Q8H [facility] Rx#:[id number] Unasyn Inj 3 GM In NS Inj 100 100 / 100 ML @ 200 mls/hr IV.SIG Q6H [facility] Rx#:[id number] Output: Urine 500 / 500 Other: # Incontinent Voids 3 Date of Last Bowel Movement 09/01/18 09/01/18 Narrative: General : Elderly W/M Obese alert, On a N/C O2 4 L CARDIOVASCULAR: Normal rate, Irregular. RESPIRATORY: Has crackles at the bases.Occ Wheeze heard. GASTROINTESTINAL: Abdomen soft, non-tender, nondistended. MUSCULOSKELETAL: Extremities 1 + edema. NEUROLOGICAL:seems confused . Moves all. - Urinary Catheter Management Indwelling Temp Sensing Catheter Cath placed during this visit: yes, but has since been removed by the nurse Reason for continuing: Decision to DC catheter Insertion date: 08/25/18 Insertion time: 14:20 Removal date: 08/29/18 Removal time: 12:30 Results - Labs CBC & Chem 7: 09/02/18 05:55 09/01/18 19:27 Laboratory Results - last 24 hr 09/01/18 09/02/18 09/02/18 19:27 00:52 05:55 WBC 27.1 H RBC 3.73 L Hgb 11.8 L Hct 36.7 L MCV 98.5 MCH 31.5 MCHC 32.0 RDW 15.8 Plt Count 211 MPV 9.1 Sodium 154 H Potassium 4.2 Chloride 121 H Carbon Dioxide 27.2 Anion Gap 6 BUN 64 H Creatinine 1.25 Estimated GFR 55 L POC Glucose 188 H Random Glucose 201 H Calcium 8.8 09/02/18 09/02/18 09/02/18 06:25 12:29 18:57 WBC RBC Hgb Hct MCV MCH MCHC RDW Plt Count MPV Sodium Potassium Chloride Carbon Dioxide Anion Gap BUN Creatinine Estimated GFR POC Glucose 142 H 168 H 160 H Random Glucose Calcium Assessment and Plan - Assessment (1) COPD (chronic obstructive pulmonary disease) Code(s): J44.9 - Chronic obstructive pulmonary disease, unspecified Status: Acute (2) Severe sepsis Code(s): A41.9 - Sepsis, unspecified organism; R65.20 - Severe sepsis without septic shock Status: Acute (3) Pneumonia Code(s): J18.9 - Pneumonia, unspecified organism Status: Acute (4) Acute respiratory failure with hypoxia and hypercapnia Code(s): J96.01 - Acute respiratory failure with hypoxia; J96.02 - Acute respiratory failure with hypercapnia Status: Acute (5) Lactic acidosis Code(s): E87.2 - Acidosis Status: Acute (6) Atrial fibrillation with rapid ventricular response Code(s): I48.91 - Unspecified atrial fibrillation Status: Acute (7) Acute kidney injury Code(s): N17.9 - Acute kidney failure, unspecified Status: Acute (8) Chronic steroid use Status: Chronic (9) Hypertension Code(s): I10 - Essential (primary) hypertension Status: Chronic - Plan 1. Place on BIPAP 12/7 CM ,FIO2 28 % at HS 2. O2 N/C 4 L daytime 3. Duoneb nebs q6h 4. CBC,BMP , in am 5. Continue antibiotics . 6. Prednisone 30 mg daily to taper 7. Continue Eliquis 5 mg BID. 8. Breo 200/25 Mcg, 1 puff daily (3) Pneumonia Qualifiers: Pneumonia type: due to unspecified organism Laterality: bilateral Lung location: unspecified part of lung Qualified Code(s): J18.9 - Pneumonia, unspecified organism (9) Hypertension Qualifiers: Hypertension type: essential hypertension Qualified Code(s): I10 - Essential (primary) hypertension
[2018-09-02] MEDS: Lactobacillus Acidophilus/L. Spores Tablet PO SCH (20:13)
[2018-09-03] MEDS: Ampicillin/Sulbactam Inj 3 GM in Sodium Chloride 0.9% Inj 100 ML IV.SIG SCH ×4 (03:21→20:35)
[2018-09-03] MEDS: Oral Hygiene Kit OROPHARYNG SCH ×4 (03:22→23:57)
[2018-09-03] MEDS: Insulin NovoLOG Aspart Correctional Sugar Inj SQ SCH ×4 (03:22→17:35)
--- NOTE | 2018-09-03 03:51 | XR ---
EXAM DATE: 09/03/2018 3:22 AM EST AGE/SEX: 83 years / Male INDICATIONS: Edema. Shortness of breath. CLINICAL DATA: This is the patient's subsequent encounter. Patient reports that signs and symptoms h ave been present for 1 week and indicates a pain score of 0/10. MEDICAL/SURGICAL HISTORY: Hypertension. Chronic obstructive pulmonary disease. A-fib. Lithotr ipsy. COMPARISON: [facility] [place], CHEST 1V SINGLE AP, 08/31/2018. . FINDINGS: Bilateral airspace consolidation, slightly worse on the right compared with August 31. Small effusi ons. No pneumothorax. CONCLUSION: Bilateral lung consolidation, slightly worse on the right compared with August 31. Small effusions. Electronically signed by: Denny Davidson MD 09/03/2018 3:50 AM EST
[2018-09-03] MEDS: Senna/Docusate Sodium 8.6/50 MG Tablet PO SCH ×2 (08:23→20:35)
[2018-09-03] MEDS: Metoprolol Tartrate 25 MG Tablet PO SCH ×2 (08:24→20:35)
[2018-09-03] MEDS: Lactobacillus Acidophilus/L. Spores Tablet PO SCH ×2 (08:24→20:35)
[2018-09-03] MEDS: predniSONE 20 MG Tablet PO SCH (08:24)
[2018-09-03] MEDS: Artificial Tears Opth Drops 15 ML Bottle EACH EYE SCH ×3 (08:25→23:56)
[2018-09-03] MEDS: Chlorhexidine 0.12% Oral Kit 15 ML UDC OROPHARYNG SCH ×2 (08:25→20:35)
[2018-09-03 09:47] LABS: Hematocrit 35.5 % (39.0-51.0); Hemoglobin 11.3 gm/dL (13.0-17.0); Mean Corpuscular HGB Conc 31.8 % (32.0-36.0); Mean Corpuscular Hemoglobin 31.4 pg (27.0-34.0); Mean Corpuscular Volume 98.6 fL (80.0-100.0); Mean Platelet Volume 9.1 fL (7.0-11.0); Platelet Count 200 th/mm3 (150-450); Red Cell Distribution Width 16.2 % (11.6-17.2); White Blood Count 25.7 th/mm3 (4.0-11.0)
[2018-09-03 10:25] LABS: Calcium 8.6 mg/dL (8.5-10.1); Carbon Dioxide 28.5 meq/L (21.0-32.0); Potassium 3.4 meq/L (3.5-5.1)
[2018-09-03] MEDS: Azithromycin Inj 500 MG in Sodium Chlor 0.9% Inj 250 ML IV.SIG SCH (12:12)
--- NOTE | 2018-09-03 15:00 | P.PNID ---
Subjective Remarks: Patient talks in a whisper. Difficult to understand his speech. Appears confused. Appears lethargic. Discussed with RN. Reportedly did not receive any new sedation. Afebrile. White blood cell count remains elevated. Chest x-ray continues to show infiltrates. Mycoplasma IgG is positive. Mycoplasma IgM is negative. Chlamydia IgG positive. 83-year-old white male was admitted to the hospital on 08/25/2018. Patient presented with shortness of breath. Chest x-ray showed bilateral infiltrates and white blood cell count was elevated. He was extubated on 2017. . 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 History of lithotripsy History of arthroplasty of the knee History of trigeminal neuralgia. Allergies/Adverse Reactions: Allergies amiodarone Allergy (Intermediate, Verified 11/15/17 10:35) BLACK LUNGS Objective Vital Signs 09/02/18 15:00 09/02/18 15:57 09/02/18 16:00 Temperature 98.3 F Pulse Rate 62 66 80 Respiratory Rate 24 18 24 Blood Pressure 116/71 172/82 H Pulse Oximetry 94 L 99 09/02/18 16:47 09/02/18 17:00 09/02/18 18:00 Temperature Pulse Rate 82 83 81 Respiratory Rate 29 H 27 H 25 H Blood Pressure 131/85 126/68 133/75 Pulse Oximetry 93 L 94 L 94 L 09/02/18 19:00 09/02/18 20:00 09/02/18 20:01 Temperature 97.8 F Pulse Rate 101 H 88 82 Respiratory Rate 29 H 27 H 24 Blood Pressure 127/80 138/91 H Pulse Oximetry 96 96 92 L 09/02/18 20:34 09/02/18 21:00 09/02/18 22:00 Temperature Pulse Rate 79 80 Respiratory Rate 24 26 H Blood Pressure 126/72 124/70 Pulse Oximetry 93 L 93 L 91 L 09/02/18 23:00 09/02/18 23:28 09/03/18 00:00 Temperature 97.5 F L Pulse Rate 79 80 78 Respiratory Rate 29 H 28 H 26 H Blood Pressure 140/82 127/78 Pulse Oximetry 92 L 97 09/03/18 01:00 09/03/18 02:00 09/03/18 03:00 Temperature Pulse Rate 83 81 85 Respiratory Rate 26 H 23 26 H Blood Pressure 127/72 105/63 107/66 Pulse Oximetry 93 L 93 L 94 L 09/03/18 04:00 09/03/18 05:00 09/03/18 05:35 Temperature 97.3 F L Pulse Rate 83 96 H 82 Respiratory Rate 26 H 28 H 28 H Blood Pressure 121/72 142/90 H Pulse Oximetry 94 L 93 L 09/03/18 06:00 09/03/18 07:00 09/03/18 07:37 Temperature Pulse Rate 87 84 88 Respiratory Rate 27 H 25 H 20 Blood Pressure 122/70 110/63 Pulse Oximetry 94 L 92 L 97 09/03/18 08:00 09/03/18 09:00 09/03/18 10:00 Temperature 97.8 F Pulse Rate 95 H 90 82 Respiratory Rate 32 H 28 H 34 H Blood Pressure 141/75 H 100/56 L 139/77 Pulse Oximetry 92 L 97 97 09/03/18 11:00 09/03/18 11:52 09/03/18 12:00 Temperature Pulse Rate 87 74 76 Respiratory Rate 34 H 28 H 31 H Blood Pressure 140/67 129/76 Pulse Oximetry 95 94 L 09/03/18 13:00 09/03/18 14:00 Temperature Pulse Rate 80 82 Respiratory Rate 28 H 27 H Blood Pressure 119/71 121/78 Pulse Oximetry 93 L 93 L Intake & Output 09/02/18 09/03/18 09/03/18 18:59 06:59 18:59 Intake Total 1760 / 1760 200 / 200 100 / 100 Output Total 600 / 600 300 / 300 Balance 1160 / 1160 -100 / -100 100 / 100 Weight 103.5 kg Intake: IV 1100 / 1100 200 / 200 100 / 100 D5W Inj 1,000 ML @ 125 mls/hr 1000 / 1000 IV.CONT .Q8H [facility] Rx#:[id number] Unasyn Inj 3 GM In NS Inj 100 100 / 100 200 / 200 100 / 100 ML @ 200 mls/hr IV.SIG Q6H [facility] Rx#:[id number] Oral 660 / 660 Output: Urine 600 / 600 300 / 300 Other: # Voids 2 1 Date of Last Bowel Movement 09/01/18 09/01/18 09/01/18 # Bowel Movements 1 08/27/18 12:27 Blood - Peripheral Aerobic Blood Culture - Final No growth in 5 days 08/27/18 12:27 Blood - Peripheral Anaerobic Blood Culture - Final No growth in 5 days 08/27/18 12:21 Blood - Peripheral Aerobic Blood Culture - Final No growth in 5 days 08/27/18 12:21 Blood - Peripheral Anaerobic Blood Culture - Final No growth in 5 days Lab - Hematology Results 09/02/18 09/03/18 05:55 09:28 WBC 27.1 H 25.7 H RBC 3.73 L 3.60 L Hgb 11.8 L 11.3 L Hct 36.7 L 35.5 L MCV 98.5 98.6 MCH 31.5 31.4 MCHC 32.0 31.8 L RDW 15.8 16.2 Plt Count 211 200 MPV 9.1 9.1 Lab - Chemistry Results 09/01/18 09/01/18 09/02/18 18:29 19:27 00:52 Sodium 154 H Potassium 4.2 Chloride 121 H Carbon Dioxide 27.2 Anion Gap 6 BUN 64 H Creatinine 1.25 Estimated GFR 55 L POC Glucose 142 H 188 H Random Glucose 201 H Calcium 8.8 09/02/18 09/02/18 09/02/18 06:25 12:29 18:57 Sodium Potassium Chloride Carbon Dioxide Anion Gap BUN Creatinine Estimated GFR POC Glucose 142 H 168 H 160 H Random Glucose Calcium 09/02/18 09/03/18 09/03/18 23:53 05:46 09:28 Sodium 149 H Potassium 3.4 L D Chloride 115 H Carbon Dioxide 28.5 Anion Gap 6 BUN 42 H Creatinine 1.08 Estimated GFR 65 L POC Glucose 144 H 143 H Random Glucose 172 H Calcium 8.6 09/03/18 12:16 Sodium Potassium Chloride Carbon Dioxide Anion Gap BUN Creatinine Estimated GFR POC Glucose 168 H Random Glucose Calcium Imaging: ITS Impressions Abdomen/Bladder Ultrasound 08/25/18 00:00 CONCLUSION: 1. No evidence of hydronephrosis. 2. Bilateral renal cysts, mostly simple, with one cyst demonstrating homogeneous low level echoes, located in the midpole the left kidney and measuring 4 cm. Venous Doppler Study 08/25/18 00:00 CONCLUSION: 1. The study is negative for bilateral lower extremity deep venous thrombosis. Chest X-Ray 09/03/18 00:00 CONCLUSION: Bilateral lung consolidation, slightly worse on the right compared with August 31. Small effusions. Physical Exam: PHYSICAL EXAMINATION: GENERAL: Patient in no acute distress. Awake and look a little lethargic. HEENT: Head is atraumatic. Extraocular muscles intact. Pupils reactive to light, without icterus. Oropharynx slightly dry mucosa. NECK: Supple, without adenopathy. LUNGS: Coarse breath sounds with bilateral. Good air movement. HEART: Irregular S1, S2. No murmur audible. ABDOMEN: Obese, soft, tympanic, nontender. Decreased bowel sounds. EXTREMITIES: No clubbing, cyanosis, or edema. SKIN: No rash. The face and neck have a red hue. NEUROLOGIC: Nonfocal. Generalized weakness. PSYCHIATRIC: The patient is calm. Assessment and Plan - Plan IMPRESSION: Pneumonia. Probable community-acquired. Possible because of blood culture positive with Haemophilus. Altered mental status Leukocytosis. Patient on steroids which could be causing increase of the white blood cell count also. RECOMMENDATIONS: Continue Unasyn. Continue azithromycin. Monitor white blood cell count. Monitor clinical status. Monitor temperature. Follow chest x-ray. .
--- NOTE | 2018-09-03 16:29 | P.DIET ---
Nutritional Evaluation Type of nutrition evaluation: follow-up Nutrition consult regarding: Tube Feeding (TFing d/c'ed) Subjective Subjective Comments: Eating ~50%. Objective - Diagnosis Sepsis, Pneumonia - Objective % IBW: 160 (IBW = 148#) Body Weight Used for Calculations: IBW (67.3 kg) Energy Needs - Lower Range (kCal/kg): 25 Energy Needs - Upper Range (kCal/kg): 30 Lower Limit kCal/kg (kCals): 1,682 Upper Limit kCal/kg (kCals): 2,019 Lower Limit Protein Factor (Grams per Kg): 1.0 Upper Limit Protein Factor (Grams per Kg): 1.5 Lower Protein Needs (Protein): 67 Upper Protein Needs (Protein): 101 Dietitian Reviewed in Medical Record: Current diet, Curent medications, Intake & Output, Labs, Medical history Diet Order: 1800 ADA, 2 gm Na, Cardiac Assessment Assessment: Pt extubated and TFing stopped. Diet has been advanced but po intake remains poor. Will send Glucmax Mcbride on trays and monitor acceptance. Each 8 oz serving provides 220 kcaks and [address] following. Recommendations: Diet as ordered Glucerchristine Mcbride tid Dietitian to Monitor: Lab values, Supplement acceptance, Intake & Output, Diet tolerance, Weight change, PO Intake, Medical course
--- NOTE | 2018-09-03 17:18 | P.PNIM ---
Subjective Interval history: Patient is more alert today. He is hoping to get stronger. His had many questions answered. Chest x-ray shows basilar infiltrate. Physical Exam Vital signs: Vital Signs 09/02/18 18:00 09/02/18 19:00 09/02/18 20:00 Temperature 97.8 F Pulse Rate 81 101 H 88 Respiratory Rate 25 H 29 H 27 H Blood Pressure 133/75 127/80 138/91 H Pulse Oximetry 94 L 96 96 09/02/18 20:01 09/02/18 20:34 09/02/18 21:00 Temperature Pulse Rate 82 79 Respiratory Rate 24 24 Blood Pressure 126/72 Pulse Oximetry 92 L 93 L 93 L 09/02/18 22:00 09/02/18 23:00 09/02/18 23:28 Temperature Pulse Rate 80 79 80 Respiratory Rate 26 H 29 H 28 H Blood Pressure 124/70 140/82 Pulse Oximetry 91 L 92 L 09/03/18 00:00 09/03/18 01:00 09/03/18 02:00 Temperature 97.5 F L Pulse Rate 78 83 81 Respiratory Rate 26 H 26 H 23 Blood Pressure 127/78 127/72 105/63 Pulse Oximetry 97 93 L 93 L 09/03/18 03:00 09/03/18 04:00 09/03/18 05:00 Temperature 97.3 F L Pulse Rate 85 83 96 H Respiratory Rate 26 H 26 H 28 H Blood Pressure 107/66 121/72 142/90 H Pulse Oximetry 94 L 94 L 93 L 09/03/18 05:35 09/03/18 06:00 09/03/18 07:00 Temperature Pulse Rate 82 87 84 Respiratory Rate 28 H 27 H 25 H Blood Pressure 122/70 110/63 Pulse Oximetry 94 L 92 L 09/03/18 07:37 09/03/18 08:00 09/03/18 09:00 Temperature 97.8 F Pulse Rate 88 95 H 90 Respiratory Rate 20 32 H 28 H Blood Pressure 141/75 H 100/56 L Pulse Oximetry 97 92 L 97 09/03/18 10:00 09/03/18 11:00 09/03/18 11:52 Temperature Pulse Rate 82 87 74 Respiratory Rate 34 H 34 H 28 H Blood Pressure 139/77 140/67 Pulse Oximetry 97 95 09/03/18 12:00 09/03/18 13:00 09/03/18 14:00 Temperature Pulse Rate 76 80 82 Respiratory Rate 31 H 28 H 27 H Blood Pressure 129/76 119/71 121/78 Pulse Oximetry 94 L 93 L 93 L 09/03/18 15:16 Temperature Pulse Rate 92 H Respiratory Rate 26 H Blood Pressure Pulse Oximetry Intake & Output 09/02/18 09/03/18 09/03/18 18:59 06:59 18:59 Intake Total 1760 / 1760 200 / 200 200 / 200 Output Total 600 / 600 300 / 300 Balance 1160 / 1160 -100 / -100 200 / 200 Weight 103.5 kg Intake: IV 1100 / 1100 200 / 200 200 / 200 D5W Inj 1,000 ML @ 125 mls/hr 1000 / 1000 IV.CONT .Q8H BRIANNA Rx#:[id number] Unasyn Inj 3 GM In NS Inj 100 100 / 100 200 / 200 200 / 200 ML @ 200 mls/hr IV.SIG Q6H BRIANNA Rx#:[id number] Oral 660 / 660 Output: Urine 600 / 600 300 / 300 Other: # Voids 2 1 Date of Last Bowel Movement 09/01/18 09/01/18 09/01/18 # Bowel Movements 1 Narrative: General : Obese elderly male in no acute dfistress. CARDIOVASCULAR: Normal rate, Irregular. RESPIRATORY: Air movement is fair. Some upper airway congestion sounds and some crackles at the bases with occasional wheezing. GASTROINTESTINAL: Abdomen soft, non-tender, nondistended. MUSCULOSKELETAL: Extremities 1 + edema. NEUROLOGICAL:Alert and talking . No focal deficit. Generalized weakness. - Urinary Catheter Management Indwelling Temp Sensing Catheter Cath placed during this visit: yes, but has since been removed by the nurse Reason for continuing: Decision to DC catheter Insertion date: 08/25/18 Insertion time: 14:20 Removal date: 08/29/18 Removal time: 12:30 Results - Labs CBC & Chem 7: 09/03/18 09:28 09/03/18 09:28 Laboratory Results - last 24 hr 09/02/18 09/02/18 09/03/18 18:57 23:53 05:46 WBC RBC Hgb Hct MCV MCH MCHC RDW Plt Count MPV Sodium Potassium Chloride Carbon Dioxide Anion Gap BUN Creatinine Estimated GFR POC Glucose 160 H 144 H 143 H Random Glucose Calcium 09/03/18 09/03/1818 09:28 09:28 12:16 WBC 25.7 H RBC 3.60 L Hgb 11.3 L Hct 35.5 L MCV 98.6 MCH 31.4 MCHC 31.8 L RDW 16.2 Plt Count 200 MPV 9.1 Sodium 149 H Potassium 3.4 L D Chloride 115 H Carbon Dioxide 28.5 Anion Gap 6 BUN 42 H Creatinine 1.08 Estimated GFR 65 L POC Glucose 168 H Random Glucose 172 H Calcium 8.6 - Imaging Impressions Chest X-Ray 09/03/18 00:00 CONCLUSION: Bilateral lung consolidation, slightly worse on the right compared with August 31. Small effusions. Assessment and Plan - Plan 83 Y/O male with acute respiratory failure secondary to pneumonia. His ICU course is somewhat prolonged. Has had issues with agitation at night and not wearing bipap. Pneumonia is persisting. His antibiotics were changed. He is showing some improvement. Pulmonology following. Continue to treat pneumonia per ID. He is very deconditioned and will likely need rehab. His 's goal [place]. Other active issues include hypernatremia and sundowning. Acute respiratory failure secondary to community acquired pneumonia History of COPD History of amiodarone lung toxicity Albuterol/ipratropium aerosols every 4 hours with albuterol aerosols every 2 hours as needed dyspnea Continue home fluticasone/Vilanterol 200/25 1 inhalation daily On prednisone Continue nocturnal CPAP/ PRN BiPAP Pulmonology following Blood cultures from 08/25 grew Haemophilus influenza sensitive to penicillins/ cephalosporins Repeat blood cultures sent on 08/27 negative thus far Sputum and urine cultures no growth to date Flu and MRSA swabs negative Legionella and pneumococcus negative CXR noted. C. pneumonia serology positive. DW ID. Azithromycin added to Zosyn. Patient previously completed 7 days of Rocephin. Encouraged the patient to use CPAP when he is sleeping. Continue breathing treatments Hypernatremia: -Improving. He has been on D5W, due to concern for fluid overload, will hold IVF today and follow up labs in AM. Atrial fibrillation with rapid ventricular response currently rate controlled Elevated troponin History of essential hypertension Hyperlipidemia Lactic acidosis Trop 0.27 on admission, most recent 0.08, no longer trending Echo: EF 45%, RV enlargement/ dysfunction, PAP 38 mm Hg Continue metoprolol at 50 mg BID s/p Cardene drip Delirium, sundown: Hyponatremia likely contributing: Improving. Delirium precautions (lights on/ shades up during the day, limit nighttime disruptions, frequent reorientation, use hearing aids) Seroquel at night as needed. Acute hyperglycemia Chronic steroid use Low TSH SSI TSH was 0.094, normal T4, T3 low-- would recheck in 4 weeks after critical illness has resolved On steroids as noted above Elevated creatinine question acute kidney injury, normalizing improved No urine eosinophils noted Renal ultrasound - bilateral renal cyst. Possible hemorrhagic left renal cyst Avoid nephrotoxic medication Monitor urine output Accurate I's and O's Prophylaxis -GI -pantoprazole -DVT -SCD/apixaban Discharge Planning: Improving. Consider transfer to floor tomorrow if he continues to improve. Will likely need SNF.
[2018-09-03] MEDS: Dextrose 5% in Water Inj 1,000 ML IV.CONT SCH (18:36)
--- NOTE | 2018-09-03 18:37 | P.PN ---
Subjective Interval history: He is more alert and seems to be better. Poor intake. CXR shows basal infiltrates. On IV antibiotics. Physical Exam Vital signs: Vital Signs 09/02/18 19:00 09/02/18 20:00 09/02/18 20:01 Temperature 97.8 F Pulse Rate 101 H 88 82 Respiratory Rate 29 H 27 H 24 Blood Pressure 127/80 138/91 H Pulse Oximetry 96 96 92 L 09/02/18 20:34 09/02/18 21:00 09/02/18 22:00 Temperature Pulse Rate 79 80 Respiratory Rate 24 26 H Blood Pressure 126/72 124/70 Pulse Oximetry 93 L 93 L 91 L 09/02/18 23:00 09/02/18 23:28 09/03/18 00:00 Temperature 97.5 F L Pulse Rate 79 80 78 Respiratory Rate 29 H 28 H 26 H Blood Pressure 140/82 127/78 Pulse Oximetry 92 L 97 09/03/18 01:00 09/03/18 02:00 09/03/18 03:00 Temperature Pulse Rate 83 81 85 Respiratory Rate 26 H 23 26 H Blood Pressure 127/72 105/63 107/66 Pulse Oximetry 93 L 93 L 94 L 09/03/18 04:00 09/03/18 05:00 09/03/18 05:35 Temperature 97.3 F L Pulse Rate 83 96 H 82 Respiratory Rate 26 H 28 H 28 H Blood Pressure 121/72 142/90 H Pulse Oximetry 94 L 93 L 09/03/18 06:00 09/03/18 07:00 09/03/18 07:37 Temperature Pulse Rate 87 84 88 Respiratory Rate 27 H 25 H 20 Blood Pressure 122/70 110/63 Pulse Oximetry 94 L 92 L 97 09/03/18 08:00 09/03/18 09:00 09/03/18 10:00 Temperature 97.8 F Pulse Rate 95 H 90 82 Respiratory Rate 32 H 28 H 34 H Blood Pressure 141/75 H 100/56 L 139/77 Pulse Oximetry 92 L 97 97 09/03/18 11:00 09/03/18 11:52 09/03/18 12:00 Temperature Pulse Rate 87 74 76 Respiratory Rate 34 H 28 H 31 H Blood Pressure 140/67 129/76 Pulse Oximetry 95 94 L 09/03/18 13:00 09/03/18 14:00 09/03/18 15:00 Temperature Pulse Rate 80 82 79 Respiratory Rate 28 H 27 H 24 Blood Pressure 119/71 121/78 111/68 Pulse Oximetry 93 L 93 L 97 09/03/18 15:16 09/03/18 16:00 09/03/18 17:00 Temperature Pulse Rate 92 H 86 86 Respiratory Rate 26 H 31 H 27 H Blood Pressure 129/64 111/59 L Pulse Oximetry 95 95 09/03/18 18:00 Temperature Pulse Rate 87 Respiratory Rate 33 H Blood Pressure 120/76 Pulse Oximetry 92 L Intake & Output 09/02/18 09/03/18 09/03/18 18:59 06:59 18:59 Intake Total 1760 / 1760 200 / 200 920 / 920 Output Total 600 / 600 300 / 300 800 / 800 Balance 1160 / 1160 -100 / -100 120 / 120 Weight 103.5 kg Intake: IV 1100 / 1100 200 / 200 200 / 200 D5W Inj 1,000 ML @ 125 mls/hr 1000 / 1000 IV.CONT .Q8H BRIANNA Rx#:[id number] Unasyn Inj 3 GM In NS Inj 100 100 / 100 200 / 200 200 / 200 ML @ 200 mls/hr IV.SIG Q6H BRIANNA Rx#:[id number] Oral 660 / 660 720 / 720 Output: Urine 600 / 600 300 / 300 800 / 800 Other: # Voids 2 1 3 # Incontinent Voids 1 # Urine Diapers 1 Date of Last Bowel Movement 09/01/18 09/01/18 09/03/18 # Bowel Movements 1 Narrative: General : Elderly W/M Obese alert, On a N/C O2 4 L CARDIOVASCULAR: Normal rate, Irregular. RESPIRATORY: Has crackles at the bases.Occ Wheeze heard. GASTROINTESTINAL: Abdomen soft, non-tender, nondistended. MUSCULOSKELETAL: Extremities 1 + edema. NEUROLOGICAL:Alert and talking . No focal deficit. - Urinary Catheter Management Indwelling Temp Sensing Catheter Cath placed during this visit: yes, but has since been removed by the nurse Reason for continuing: Decision to DC catheter Insertion date: 08/25/18 Insertion time: 14:20 Removal date: 08/29/18 Removal time: 12:30 Results - Labs CBC & Chem 7: 09/03/18 09:28 09/03/18 09:28 Laboratory Results - last 24 hr 09/02/18 09/02/18 09/03/18 18:57 23:53 05:46 WBC RBC Hgb Hct MCV MCH MCHC RDW Plt Count MPV Sodium Potassium Chloride Carbon Dioxide Anion Gap BUN Creatinine Estimated GFR POC Glucose 160 H 144 H 143 H Random Glucose Calcium 09/03/18 09/03/18 09/03/18 09:28 09:28 12:16 WBC 25.7 H RBC 3.60 L Hgb 11.3 L Hct 35.5 L MCV 98.6 MCH 31.4 MCHC 31.8 L RDW 16.2 Plt Count 200 MPV 9.1 Sodium 149 H Potassium 3.4 L D Chloride 115 H Carbon Dioxide 28.5 Anion Gap 6 BUN 42 H Creatinine 1.08 Estimated GFR 65 L POC Glucose 168 H Random Glucose 172 H Calcium 8.6 09/03/18 17:29 WBC RBC Hgb Hct MCV MCH MCHC RDW Plt Count MPV Sodium Potassium Chloride Carbon Dioxide Anion Gap BUN Creatinine Estimated GFR POC Glucose 198 H Random Glucose Calcium - Imaging Impressions Chest X-Ray 09/03/18 00:00 CONCLUSION: Bilateral lung consolidation, slightly worse on the right compared with August 31. Small effusions. Assessment and Plan - Assessment (1) COPD (chronic obstructive pulmonary disease) Code(s): J44.9 - Chronic obstructive pulmonary disease, unspecified Status: Acute (2) Severe sepsis Code(s): A41.9 - Sepsis, unspecified organism; R65.20 - Severe sepsis without septic shock Status: Acute (3) Pneumonia Code(s): J18.9 - Pneumonia, unspecified organism Status: Acute (4) Acute respiratory failure with hypoxia and hypercapnia Code(s): J96.01 - Acute respiratory failure with hypoxia; J96.02 - Acute respiratory failure with hypercapnia Status: Acute (5) Lactic acidosis Code(s): E87.2 - Acidosis Status: Acute (6) Atrial fibrillation with rapid ventricular response Code(s): I48.91 - Unspecified atrial fibrillation Status: Acute (7) Acute kidney injury Code(s): N17.9 - Acute kidney failure, unspecified Status: Acute (8) Chronic steroid use Status: Chronic (9) Hypertension Code(s): I10 - Essential (primary) hypertension Status: Chronic - Plan 1. Place on Home CPAP ,FIO2 28 % at HS 2. O2 N/C 4 L daytime 3. Duoneb nebs q6h 4. CBC,BMP , in am 5. Continue antibiotics . 6. Prednisone 30 mg daily 7. Continue Eliquis 5 mg BID. 8. Breo 200/25 Mcg, 1 puff daily 9. Add EzPAP with Nebs qid. (3) Pneumonia Qualifiers: Pneumonia type: due to unspecified organism Laterality: bilateral Lung location: unspecified part of lung Qualified Code(s): J18.9 - Pneumonia, unspecified organism (9) Hypertension Qualifiers: Hypertension type: essential hypertension Qualified Code(s): I10 - Essential (primary) hypertension
[2018-09-04] MEDS: Insulin NovoLOG Aspart Correctional Sugar Inj SQ SCH ×4 (01:23→17:08)
[2018-09-04] MEDS: Ampicillin/Sulbactam Inj 3 GM in Sodium Chloride 0.9% Inj 100 ML IV.SIG SCH ×4 (01:44→20:00)
[2018-09-04] MEDS: Oral Hygiene Kit OROPHARYNG SCH ×3 (03:03→17:00)
[2018-09-04] MEDS: Artificial Tears Opth Drops 15 ML Bottle EACH EYE SCH ×2 (06:36→14:05)
[2018-09-04 06:51] LABS: Hematocrit 36.8 % (39.0-51.0); Hemoglobin 11.9 gm/dL (13.0-17.0); Mean Corpuscular HGB Conc 32.3 % (32.0-36.0); Mean Corpuscular Hemoglobin 31.9 pg (27.0-34.0); Mean Corpuscular Volume 98.7 fL (80.0-100.0); Mean Platelet Volume 9.7 fL (7.0-11.0); Platelet Count 224 th/mm3 (150-450); Red Blood Count 3.73 mil/mm3 (4.50-5.90); Red Cell Distribution Width 15.6 % (11.6-17.2); White Blood Count 28.5 th/mm3 (4.0-11.0)
[2018-09-04 07:00] LABS: Carbon Dioxide 22.6 meq/L (21.0-32.0)
[2018-09-04] MEDS: Chlorhexidine 0.12% Oral Kit 15 ML UDC OROPHARYNG SCH ×2 (10:14→20:01)
[2018-09-04] MEDS: Furosemide 20 MG Tablet PO SCH (10:14)
[2018-09-04] MEDS: Senna/Docusate Sodium 8.6/50 MG Tablet PO SCH ×2 (10:15→20:01)
[2018-09-04] MEDS: predniSONE 20 MG Tablet PO SCH (10:16)
[2018-09-04] MEDS: Metoprolol Tartrate 25 MG Tablet PO SCH ×2 (10:16→20:00)
[2018-09-04] MEDS: Lactobacillus Acidophilus/L. Spores Tablet PO SCH ×2 (10:17→20:00)
[2018-09-04] MEDS: Azithromycin Inj 500 MG in Sodium Chlor 0.9% Inj 250 ML IV.SIG SCH (11:23)
--- NOTE | 2018-09-04 14:16 | P.PN ---
Subjective Interval history: he is alert but confused. taking little orally. Has more leg edema Physical Exam Vital signs: Vital Signs 09/03/18 15:00 09/03/18 15:16 09/03/18 16:00 Temperature Pulse Rate 79 92 H 86 Respiratory Rate 24 26 H 31 H Blood Pressure 111/68 129/64 Pulse Oximetry 97 95 09/03/18 17:00 09/03/18 18:00 09/03/18 19:00 Temperature Pulse Rate 86 87 87 Respiratory Rate 27 H 33 H Blood Pressure 111/59 L 120/76 129/72 Pulse Oximetry 95 92 L 96 09/03/18 20:00 09/03/18 20:01 09/03/18 21:00 Temperature 97.5 F L Pulse Rate 87 78 90 Respiratory Rate 22 28 H 30 H Blood Pressure 136/84 119/80 Pulse Oximetry 94 L 94 L 91 L 09/03/18 22:00 09/03/18 23:00 09/04/18 00:00 Temperature 98.4 F Pulse Rate 84 79 79 Respiratory Rate 38 H 27 H 27 H Blood Pressure 129/83 129/80 127/77 Pulse Oximetry 88 L 93 L 95 09/04/18 01:00 09/04/18 02:00 09/04/18 03:00 Temperature Pulse Rate 84 85 86 Respiratory Rate 28 H 30 H 26 H Blood Pressure 125/78 133/80 134/88 Pulse Oximetry 94 L 89 L 94 L 09/04/18 03:31 09/04/18 04:00 09/04/18 05:00 Temperature 97.3 F L Pulse Rate 76 88 89 Respiratory Rate 28 H 26 H 28 H Blood Pressure 139/98 H 145/83 H Pulse Oximetry 97 96 09/04/18 06:00 09/04/18 07:00 09/04/18 07:59 Temperature Pulse Rate 87 88 90 Respiratory Rate 27 H 26 H 17 Blood Pressure 123/87 127/80 Pulse Oximetry 97 98 93 L 09/04/18 08:00 09/04/18 09:00 09/04/18 10:00 Temperature 97.6 F 97.6 F Pulse Rate 90 95 H 93 H Respiratory Rate 25 H 21 34 H Blood Pressure 144/82 H 135/83 133/81 Pulse Oximetry 91 L 97 97 09/04/18 11:00 09/04/18 12:00 09/04/18 13:00 Temperature Pulse Rate 98 H 85 81 Respiratory Rate 37 H 8 L 31 H Blood Pressure 129/75 132/69 127/66 Pulse Oximetry 96 92 L 95 Intake & Output 09/03/18 09/04/18 09/04/18 18:59 06:59 18:59 Intake Total 1670 / 1670 200 / 200 600 / 600 Output Total 800 / 800 450 / 450 Balance 870 / 870 -250 / -250 600 / 600 Weight 107.6 kg Intake: IV 950 / 950 200 / 200 600 / 600 D5W Inj 1,000 ML @ 75 mls/hr IV 750 / 750 .CONT .[id number] BRIANNA Rx#:[id number] Unasyn Inj 3 GM In NS Inj 100 200 / 200 200 / 200 100 / 100 ML @ 200 mls/hr IV.SIG Q6H BRIANNA Rx#:[id number] Azithromycin Inj 500 MG In NS 500 / 500 Inj 250 ML @ 250 mls/hr IV.SIG Q24H BRIANNA Rx#:[id number] Oral 720 / 720 Output: Urine 800 / 800 450 / 450 Other: # Voids 3 # Incontinent Voids 1 # Urine Diapers 1 Date of Last Bowel Movement 09/03/18 09/01/18 09/01/18 Narrative: General : Obese elderly male in no acute distress. CARDIOVASCULAR: Normal rate, Irregular. RESPIRATORY: Air movement is fair. some crackles at the bases with occasional wheezing. GASTROINTESTINAL: Abdomen soft, non-tender, nondistended. MUSCULOSKELETAL: Extremities 2 + edema. NEUROLOGICAL:Alert and talking . No focal deficit. Generalized weakness. - Urinary Catheter Management Indwelling Temp Sensing Catheter Cath placed during this visit: yes, but has since been removed by the nurse Reason for continuing: Decision to DC catheter Insertion date: 08/25/18 Insertion time: 14:20 Removal date: 08/29/18 Removal time: 12:30 Results - Labs CBC & Chem 7: 09/04/18 05:34 09/04/18 05:34 Laboratory Results - last 24 hr 09/03/18 09/04/18 09/04/18 17:29 00:08 05:34 WBC 28.5 H RBC 3.73 L Hgb 11.9 L Hct 36.8 L MCV 98.7 MCH 31.9 MCHC 32.3 RDW 15.6 Plt Count 224 MPV 9.7 Sodium Potassium Chloride Carbon Dioxide Anion Gap BUN Creatinine Estimated GFR POC Glucose 198 H 126 H Random Glucose Calcium 09/04/18 09/04/18 09/04/18 05:34 06:44 12:09 WBC RBC Hgb Hct MCV MCH MCHC RDW Plt Count MPV Sodium 147 H Potassium 4.0 Chloride 119 H Carbon Dioxide 22.6 Anion Gap 5 BUN 40 H Creatinine 1.01 Estimated GFR 71 L POC Glucose 120 H 161 H Random Glucose 125 H Calcium 9.0 Assessment and Plan - Assessment (1) COPD (chronic obstructive pulmonary disease) Code(s): J44.9 - Chronic obstructive pulmonary disease, unspecified Status: Acute (2) Severe sepsis Code(s): A41.9 - Sepsis, unspecified organism; R65.20 - Severe sepsis without septic shock Status: Acute (3) Pneumonia Code(s): J18.9 - Pneumonia, unspecified organism Status: Acute (4) Acute respiratory failure with hypoxia and hypercapnia Code(s): J96.01 - Acute respiratory failure with hypoxia; J96.02 - Acute respiratory failure with hypercapnia Status: Acute (5) Lactic acidosis Code(s): E87.2 - Acidosis Status: Acute (6) Atrial fibrillation with rapid ventricular response Code(s): I48.91 - Unspecified atrial fibrillation Status: Acute (7) Acute kidney injury Code(s): N17.9 - Acute kidney failure, unspecified Status: Acute (8) Chronic steroid use Status: Chronic (9) Hypertension Code(s): I10 - Essential (primary) hypertension Status: Chronic - Plan 1. Place on Home CPAP ,FIO2 28 % at HS 2. O2 N/C 3 L daytime 3. Duoneb nebs q6h 4. CBC,BMP , in am 5. Continue antibiotics . 6. Prednisone 20 mg daily 7. Continue Eliquis 5 mg BID. 8. Breo 200/25 Mcg, 1 puff daily 9. Add EzPAP with Nebs qid. 10. Add lasix 20 mg daily (3) Pneumonia Qualifiers: Pneumonia type: due to unspecified organism Laterality: bilateral Lung location: unspecified part of lung Qualified Code(s): J18.9 - Pneumonia, unspecified organism (9) Hypertension Qualifiers: Hypertension type: essential hypertension Qualified Code(s): I10 - Essential (primary) hypertension
--- NOTE | 2018-09-04 15:09 | P.PNID ---
Subjective Remarks: Patient appears more alert and seems to be communicating better. frustrated that he is not ambulating better. No cough or sputum production. Afebrile. White blood cell count remains elevated. Chest x-ray continues to show infiltrates. Mycoplasma IgG is positive. Mycoplasma IgM is negative. Chlamydia IgG positive. Legionella and strep antigen were negative. 83-year-old white male was admitted to the hospital on 08/25/2018. Patient presented with shortness of breath. Chest x-ray showed bilateral infiltrates and white blood cell count was elevated. He was extubated on 2017. . 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 History of lithotripsy History of arthroplasty of the knee History of trigeminal neuralgia. Allergies/Adverse Reactions: Allergies amiodarone Allergy (Intermediate, Verified 11/15/17 10:35) BLACK LUNGS Objective Vital Signs 09/03/18 15:16 09/03/18 16:00 09/03/18 17:00 Temperature Pulse Rate 92 H 86 86 Respiratory Rate 26 H 31 H 27 H Blood Pressure 129/64 111/59 L Pulse Oximetry 95 95 09/03/18 18:00 09/03/18 19:00 09/03/18 20:00 Temperature 97.5 F L Pulse Rate 87 87 87 Respiratory Rate 33 H 22 Blood Pressure 120/76 129/72 136/84 Pulse Oximetry 92 L 96 94 L 09/03/18 20:01 09/03/18 21:00 09/03/18 22:00 Temperature Pulse Rate 78 90 84 Respiratory Rate 28 H 30 H 38 H Blood Pressure 119/80 129/83 Pulse Oximetry 94 L 91 L 88 L 09/03/18 23:00 09/04/18 00:00 09/04/18 01:00 Temperature 98.4 F Pulse Rate 79 79 84 Respiratory Rate 27 H 27 H 28 H Blood Pressure 129/80 127/77 125/78 Pulse Oximetry 93 L 95 94 L 09/04/18 02:00 09/04/18 03:00 09/04/18 03:31 Temperature Pulse Rate 85 86 76 Respiratory Rate 30 H 26 H 28 H Blood Pressure 133/80 134/88 Pulse Oximetry 89 L 94 L 09/04/18 04:00 09/04/18 05:00 09/04/18 06:00 Temperature 97.3 F L Pulse Rate 88 89 87 Respiratory Rate 26 H 28 H 27 H Blood Pressure 139/98 H 145/83 H 123/87 Pulse Oximetry 97 96 97 09/04/18 07:00 09/04/18 07:59 09/04/18 08:00 Temperature 97.6 F Pulse Rate 88 90 90 Respiratory Rate 26 H 17 25 H Blood Pressure 127/80 144/82 H Pulse Oximetry 98 93 L 91 L 09/04/18 09:00 09/04/18 10:00 09/04/18 11:00 Temperature 97.6 F Pulse Rate 95 H 93 H 98 H Respiratory Rate 21 34 H 37 H Blood Pressure 135/83 133/81 129/75 Pulse Oximetry 97 97 96 09/04/18 12:00 09/04/18 13:00 Temperature Pulse Rate 85 81 Respiratory Rate 8 L 31 H Blood Pressure 132/69 127/66 Pulse Oximetry 92 L 95 Intake & Output 09/03/18 09/04/18 09/04/18 18:59 06:59 18:59 Intake Total 1670 / 1670 200 / 200 600 / 600 Output Total 800 / 800 450 / 450 Balance 870 / 870 -250 / -250 600 / 600 Weight 107.6 kg Intake: IV 950 / 950 200 / 200 600 / 600 D5W Inj 1,000 ML @ 75 mls/hr IV 750 / 750 .CONT .[id number] BRIANNA Rx#:[id number] Unasyn Inj 3 GM In NS Inj 100 200 / 200 200 / 200 100 / 100 ML @ 200 mls/hr IV.SIG Q6H BRIANNA Rx#:[id number] Azithromycin Inj 500 MG In NS 500 / 500 Inj 250 ML @ 250 mls/hr IV.SIG Q24H BRIANNA Rx#:[id number] Oral 720 / 720 Output: Urine 800 / 800 450 / 450 Other: # Voids 3 # Incontinent Voids 1 # Urine Diapers 1 Date of Last Bowel Movement 09/03/18 09/01/18 09/01/18 08/27/18 12:27 Blood - Peripheral Aerobic Blood Culture - Final No growth in 5 days 08/27/18 12:27 Blood - Peripheral Anaerobic Blood Culture - Final No growth in 5 days 08/27/18 12:21 Blood - Peripheral Aerobic Blood Culture - Final No growth in 5 days 08/27/18 12:21 Blood - Peripheral Anaerobic Blood Culture - Final No growth in 5 days Lab - Hematology Results 09/03/18 09/04/18 09:28 05:34 WBC 25.7 H 28.5 H RBC 3.60 L 3.73 L Hgb 11.3 L 11.9 L Hct 35.5 L 36.8 L MCV 98.6 98.7 MCH 31.4 31.9 MCHC 31.8 L 32.3 RDW 16.2 15.6 Plt Count 200 224 MPV 9.1 9.7 Lab - Chemistry Results 09/02/18 09/02/18 09/03/18 18:57 23:53 05:46 Sodium Potassium Chloride Carbon Dioxide Anion Gap BUN Creatinine Estimated GFR POC Glucose 160 H 144 H 143 H Random Glucose Calcium 09/03/18 09/03/18 09/03/18 09:28 12:16 17:29 Sodium 149 H Potassium 3.4 L D Chloride 115 H Carbon Dioxide 28.5 Anion Gap 6 BUN 42 H Creatinine 1.08 Estimated GFR 65 L POC Glucose 168 H 198 H Random Glucose 172 H Calcium 8.6 09/04/18 09/04/18 09/04/18 00:08 05:34 06:44 Sodium 147 H Potassium 4.0 Chloride 119 H Carbon Dioxide 22.6 Anion Gap 5 BUN 40 H Creatinine 1.01 Estimated GFR 71 L POC Glucose 126 H 120 H Random Glucose 125 H Calcium 9.0 09/04/18 12:09 Sodium Potassium Chloride Carbon Dioxide Anion Gap BUN Creatinine Estimated GFR POC Glucose 161 H Random Glucose Calcium Imaging: ITS Impressions Abdomen/Bladder Ultrasound 08/25/18 00:00 CONCLUSION: 1. No evidence of hydronephrosis. 2. Bilateral renal cysts, mostly simple, with one cyst demonstrating homogeneous low level echoes, located in the midpole the left kidney and measuring 4 cm. Venous Doppler Study 08/25/18 00:00 CONCLUSION: 1. The study is negative for bilateral lower extremity deep venous thrombosis. Chest X-Ray 09/03/18 00:00 CONCLUSION: Bilateral lung consolidation, slightly worse on the right compared with August 31. Small effusions. Physical Exam: PHYSICAL EXAMINATION: GENERAL: Patient in no acute distress. HEENT: Head is atraumatic. Extraocular muscles intact. Pupils reactive to light, without icterus. Oropharynx slightly dry mucosa. NECK: Supple, without adenopathy. LUNGS: Coarse breath sounds with bilateral. Good air movement. HEART: Irregular S1, S2. No murmur audible. ABDOMEN: Obese, soft, tympanic, nontender. Decreased bowel sounds. EXTREMITIES: No clubbing, cyanosis, 1+ nonpitting edema. SKIN: No rash. ecchymoses at hands and legs. The face and neck have a red hue. NEUROLOGIC: Nonfocal. Generalized weakness. PSYCHIATRIC: The patient is calm. Assessment and Plan - Plan IMPRESSION: Pneumonia. Probable community-acquired. Possible cause of blood culture positive with Haemophilus. Altered mental status. Improving. Leukocytosis. Patient on steroids which could be causing increase of the white blood cell count also. He appears to be getting better. RECOMMENDATIONS: Continue Unasyn. Continue azithromycin. Monitor white blood cell count. Monitor clinical status. Monitor temperature. Follow chest x-ray. D/W and RN.
--- NOTE | 2018-09-04 16:30 | P.PNIM ---
Subjective Interval history: patient says he is feeling ok. no cp or sob. he endorses some difficulty swallowing sometimes, but is adamant that he does not have any difficulty swallowing. says patients confusion not getting much better. nurse reports swallowing okay, except for one time when was feeding patient while lying down, with some coughing. - was instructed to feed only when pt is completely upright. Physical Exam Vital signs: Vital Signs 09/03/18 17:00 09/03/18 18:00 09/03/18 19:00 Temperature Pulse Rate 86 87 87 Respiratory Rate 27 H 33 H Blood Pressure 111/59 L 120/76 129/72 Pulse Oximetry 95 92 L 96 09/03/18 20:00 09/03/18 20:01 09/03/18 21:00 Temperature 97.5 F L Pulse Rate 87 78 90 Respiratory Rate 22 28 H 30 H Blood Pressure 136/84 119/80 Pulse Oximetry 94 L 94 L 91 L 09/03/18 22:00 09/03/18 23:00 09/04/18 00:00 Temperature 98.4 F Pulse Rate 84 79 79 Respiratory Rate 38 H 27 H 27 H Blood Pressure 129/83 129/80 127/77 Pulse Oximetry 88 L 93 L 95 09/04/18 01:00 09/04/18 02:00 09/04/18 03:00 Temperature Pulse Rate 84 85 86 Respiratory Rate 28 H 30 H 26 H Blood Pressure 125/78 133/80 134/88 Pulse Oximetry 94 L 89 L 94 L 09/04/18 03:31 09/04/18 04:00 09/04/18 05:00 Temperature 97.3 F L Pulse Rate 76 88 89 Respiratory Rate 28 H 26 H 28 H Blood Pressure 139/98 H 145/83 H Pulse Oximetry 97 96 09/04/18 06:00 09/04/18 07:00 09/04/18 07:59 Temperature Pulse Rate 87 88 90 Respiratory Rate 27 H 26 H 17 Blood Pressure 123/87 127/80 Pulse Oximetry 97 98 93 L 09/04/18 08:00 09/04/18 09:00 09/04/18 10:00 Temperature 97.6 F 97.6 F Pulse Rate 90 95 H 93 H Respiratory Rate 25 H 21 34 H Blood Pressure 144/82 H 135/83 133/81 Pulse Oximetry 91 L 97 97 09/04/18 11:00 09/04/18 12:00 09/04/18 13:00 Temperature Pulse Rate 98 H 85 81 Respiratory Rate 37 H 8 L 31 H Blood Pressure 129/75 132/69 127/66 Pulse Oximetry 96 92 L 95 09/04/18 14:00 09/04/18 15:00 Temperature Pulse Rate 82 81 Respiratory Rate 34 H 34 H Blood Pressure 129/75 115/81 Pulse Oximetry 96 99 Intake & Output 09/03/18 09/04/18 09/04/18 18:59 06:59 18:59 Intake Total 1670 / 1670 200 / 200 600 / 600 Output Total 800 / 800 450 / 450 Balance 870 / 870 -250 / -250 600 / 600 Weight 107.6 kg Intake: IV 950 / 950 200 / 200 600 / 600 D5W Inj 1,000 ML @ 75 mls/hr IV 750 / 750 .CONT .[id number] BRIANNA Rx#:[id number] Unasyn Inj 3 GM In NS Inj 100 200 / 200 200 / 200 100 / 100 ML @ 200 mls/hr IV.SIG Q6H BRIANNA Rx#:[id number] Azithromycin Inj 500 MG In NS 500 / 500 Inj 250 ML @ 250 mls/hr IV.SIG Q24H BRIANNA Rx#:[id number] Oral 720 / 720 Output: Urine 800 / 800 450 / 450 Other: # Voids 3 # Incontinent Voids 1 # Urine Diapers 1 Date of Last Bowel Movement 09/03/18 09/01/18 09/04/18 Narrative: GENERAL: Patient sitting up in bed. Appears comfortable. 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 SKIN: Warm and dry. HEAD: Normocephalic. EYES: No scleral icterus. No injection or drainage. NECK: Supple, trachea midline. No JVD. CARDIOVASCULAR: Regular rate and rhythm without murmurs, gallops, or rubs. RESPIRATORY: Breath sounds equal bilaterally. No accessory muscle use. GASTROINTESTINAL: Abdomen soft, non-tender, nondistended. MUSCULOSKELETAL: No cyanosis. +2 bilateral lower extremity edema. BACK: Nontender without obvious deformity. No CVA tenderness. - Urinary Catheter Management Indwelling Temp Sensing Catheter Cath placed during this visit: yes, but has since been removed by the nurse Reason for continuing: Decision to DC catheter Insertion date: 08/25/18 Insertion time: 14:20 Removal date: 08/29/18 Removal time: 12:30 Results - Labs CBC & Chem 7: 09/04/18 05:34 09/04/18 05:34 Laboratory Results - last 24 hr 09/03/18 09/04/18 09/04/18 17:29 00:08 05:34 WBC 28.5 H RBC 3.73 L Hgb 11.9 L Hct 36.8 L MCV 98.7 MCH 31.9 MCHC 32.3 RDW 15.6 Plt Count 224 MPV 9.7 Sodium Potassium Chloride Carbon Dioxide Anion Gap BUN Creatinine Estimated GFR POC Glucose 198 H 126 H Random Glucose Calcium 09/04/18 09/04/18 09/04/18 05:34 06:44 12:09 WBC RBC Hgb Hct MCV MCH MCHC RDW Plt Count MPV Sodium 147 H Potassium 4.0 Chloride 119 H Carbon Dioxide 22.6 Anion Gap 5 BUN 40 H Creatinine 1.01 Estimated GFR 71 L POC Glucose 120 H 161 H Random Glucose 125 H Calcium 9.0 Assessment and Plan - Plan 83 Y/O male with acute respiratory failure secondary to pneumonia. His ICU course is somewhat prolonged. Has had issues with agitation at night and not wearing bipap. Pneumonia is persisting. His antibiotics were changed. He is showing some improvement. Pulmonology following. Continue to treat pneumonia per ID. He is very deconditioned and will likely need rehab. His 's goal [place]. Other active issues include hypernatremia and sundowning. Acute respiratory failure secondary to community acquired pneumonia History of COPD History of amiodarone lung toxicity Albuterol/ipratropium aerosols every 4 hours with albuterol aerosols every 2 hours as needed dyspnea Continue home fluticasone/Vilanterol 200/25 1 inhalation daily On prednisone Continue nocturnal CPAP/ PRN BiPAP Pulmonology following Blood cultures from 08/25 grew Haemophilus influenza sensitive to penicillins/ cephalosporins Repeat blood cultures sent on 08/27 negative thus far Sputum and urine cultures no growth to date Flu and MRSA swabs negative Legionella and pneumococcus negative CXR noted. C. pneumonia serology positive. DW ID. Azithromycin added to Zosyn. Patient previously completed 7 days of Rocephin. Encouraged the patient to use CPAP when he is sleeping. Continue breathing treatments = 09/04. Patient reports some difficulty swallowing however disagrees. Will order speech evaluation. Hypernatremia: = 09/04. Sodium improved 147 today. With some fluid overload will order Lasix. Chair tomorrow Atrial fibrillation with rapid ventricular response currently rate controlled Elevated troponin History of essential hypertension Hyperlipidemia Lactic acidosis Trop 0.27 on admission, most recent 0.08, no longer trending Echo: EF 45%, RV enlargement/ dysfunction, PAP 38 mm Hg Continue metoprolol at 50 mg BID s/p Cardene drip = 09/04. With some fluid overload with bilateral lower extremity edema will order BNP and diurese. Delirium, : //Suspected ICU induced delirium versus encephalopathy Improving. Delirium precautions (lights on/ shades up during the day, limit nighttime disruptions, frequent reorientation, use hearing aids) Seroquel at night as needed. = 09/04. concerned about confusion. Extensive perioral herpes. Will order EEG, CT brain. Perioral herpes We will order PCR herpes. Acute hyperglycemia Chronic steroid use Low TSH SSI TSH was 0.094, normal T4, T3 low-- would recheck in 4 weeks after critical illness has resolved On steroids as noted above Elevated creatinine question acute kidney injury, normalizing improved No urine eosinophils noted Renal ultrasound - bilateral renal cyst. Possible hemorrhagic left renal cyst Avoid nephrotoxic medication Monitor urine output Accurate I's and O's Prophylaxis -GI -pantoprazole -DVT -SCD/apixaban Discharge Planning: Improving. transfer to floor. Will likely need SNF.
[2018-09-04] MEDS: Acetaminophen 325 MG Tablet PO PRN (18:27)
[2018-09-05] MEDS: Artificial Tears Opth Drops 15 ML Bottle EACH EYE SCH ×3 (00:08→22:01)
[2018-09-05] MEDS: Oral Hygiene Kit OROPHARYNG SCH ×4 (00:09→22:01)
[2018-09-05] MEDS: Acetaminophen 325 MG Tablet PO PRN (02:23)
[2018-09-05] MEDS: Ampicillin/Sulbactam Inj 3 GM in Sodium Chloride 0.9% Inj 100 ML IV.SIG SCH ×4 (02:23→22:00)
[2018-09-05] MEDS: Insulin NovoLOG Aspart Correctional Sugar Inj SQ SCH ×3 (02:24→12:06)
--- NOTE | 2018-09-05 04:59 | CT ---
EXAM DATE: 09/05/2018 4:37 AM EST AGE/SEX: 83 years / Male INDICATIONS: Altered mental status. CLINICAL DATA: This is the patient's initial encounter. Patient reports that signs and symptoms have been present for 1 day and indicates a pain score of 0/10. MEDICAL/SURGICAL HISTORY: . Chronic obstructive pulmonary disease. Hypertension. AFIB None. RADIATION DOSE: 66.34 CTDI (mGy) COMPARISON: No prior exams available for comparison. TECHNIQUE: CT of the head without contrast. Using automated exposure control and adjustment of the mA and/or kV according to patient size, radiation dose was kept as low as reasonably achievable to ob tain optimal diagnostic quality images. DICOM format image data is available electronically for revi ew and comparison. FINDINGS: Cerebrum: The ventricles are normal for age. No evidence of midline shift, mass lesion, hemorrhage or acute infarction. No extraaxial fluid collections are seen. Posterior Fossa: The cerebellum and brainstem are intact. The 4th ventricle is midline. The cerebe llopontine angle is unremarkable. Extracranial: The visualized portion of the orbits is intact. Skull: The calvaria is intact. No evidence of skull fracture. CONCLUSION: 1. No acute intracranial abnormalities. . Electronically signed by: Denny Davidson MD 09/05/2018 4:57 AM EST
--- NOTE | 2018-09-05 05:05 | CT ---
EXAM DATE: 09/05/2018 4:37 AM EST AGE/SEX: 83 years / Male INDICATIONS: Abdominal pain. CLINICAL DATA: This is the patient's initial encounter. Patient reports that signs and symptoms have been present for 1 day and indicates a pain score of 5/10. MEDICAL/SURGICAL HISTORY: Chronic obstructive pulmonary disease. Hypertension. AFIB None. RADIATION DOSE: 16.52 CTDI (mGy) COMPARISON: No prior exams available for comparison. TECHNIQUE: Multiple contiguous axial images were obtained through the abdomen. Images were obtained using multiple row detector helical technique. Using automated exposure control and adjustment of the mA and/or kV according to patient size, radiation dose was kept as low as reasonably achievable to o btain optimal diagnostic quality images. DICOM format image data is available electronically for rev iew and comparison. FINDINGS: Small bilateral pleural effusions, right greater than left. Basilar airspace disease present bilatera lly with a 2.5 cm cavitary lesion right lower lobe. There is mild ascites and anasarca. No acute findings in the liver, pancreas. 2.4 cm left adrenal mas s probably an adenoma. Numerous exophytic bilateral renal masses most characteristic of complex cysts . There is a diffuse ileus, especially colonic. No evidence for small bowel obstruction. No free air. No acute bony abnormality. CONCLUSION: 1. Cavitary nodule right lower lobe measuring up to 2.5 cm in diameter. Differential diagnosis inclu elodia infection and neoplasm. Consider further evaluation with chest CT. Basilar airspace disease and s mall effusions, right greater than left. 2. Mild ascites and anasarca. Diffuse ileus, especially colonic. 3. 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 Numerous a definitive masses in the kidneys, worse on the left side, probably complex cysts. Electronically signed by: Denny Davidson MD 09/05/2018 5:04 AM EST
[2018-09-05 06:31] LABS: Baso # (Auto) 0.1 th/mm3 (0.0-0.2); Baso % (Auto) 0.2 % (0.0-2.0); Hematocrit 34.8 % (39.0-51.0); Hemoglobin 11.2 gm/dL (13.0-17.0); Lymph # (Auto) 0.3 th/mm3 (1.0-4.8); Lymph % (Auto) 1.1 % (9.0-44.0); Mean Corpuscular HGB Conc 32.1 % (32.0-36.0); Mean Corpuscular Hemoglobin 31.1 pg (27.0-34.0); Mean Corpuscular Volume 96.8 fL (80.0-100.0); Mean Platelet Volume 9.7 fL (7.0-11.0); Mono # (Auto) 0.9 th/mm3 (0.0-0.9); Mono % (Auto) 2.7 % (0.0-8.0); Neut # (Auto) 31.7 th/mm3 (1.8-7.7); Platelet Count 223 th/mm3 (150-450); Red Blood Count 3.59 mil/mm3 (4.50-5.90); Red Cell Distribution Width 15.2 % (11.6-17.2)
[2018-09-05 06:45] LABS: Albumin 1.9 g/dL (3.4-5.0); Calcium 8.9 mg/dL (8.5-10.1); Magnesium 2.4 mg/dL (1.5-2.5); Potassium 3.3 meq/L (3.5-5.1)
[2018-09-05 06:49] LABS: Phosphorus 2.5 mg/dL (2.5-4.9); Total Protein 5.2 g/dL (6.4-8.2)
[2018-09-05 07:50] LABS: Monocytes 1 % (0-8)
[2018-09-05 07:51] LABS: Platelet Estimate Normal (Normal); Platelet Morphology Normal (Normal)
[2018-09-05] MEDS: Lactobacillus Acidophilus/L. Spores Tablet PO SCH ×2 (08:31→21:54)
[2018-09-05] MEDS: Metoprolol Tartrate 25 MG Tablet PO SCH ×2 (08:31→21:54)
[2018-09-05] MEDS: predniSONE 20 MG Tablet PO SCH (08:31)
[2018-09-05] MEDS: Furosemide 20 MG Tablet PO SCH (08:31)
[2018-09-05] MEDS: Chlorhexidine 0.12% Oral Kit 15 ML UDC OROPHARYNG SCH ×2 (11:51→22:00)
[2018-09-05] MEDS: Senna/Docusate Sodium 8.6/50 MG Tablet PO SCH ×2 (11:52→21:54)
--- NOTE | 2018-09-05 11:52 | P.PNID ---
Subjective Remarks: Patient is alert and is communicating well. However he appears confused. Voice is weak. He is currently laying in bed on his back and wants to be assisted because he thinks he is falling. He is in no acute distress. No cough or sputum production. Afebrile. White blood cell count is still high. RN reports that he had a large loose bowel movement yesterday. Stool C. difficile PCR is negative. Has crusted lesions on the lip upper and lower. Mycoplasma IgG is positive. Mycoplasma IgM is negative. Chlamydia IgG positive. Legionella and strep antigen were negative. 83-year-old white male was admitted to the hospital on 08/25/2018. Patient presented with shortness of breath. Chest x-ray showed bilateral infiltrates and white blood cell count was elevated. He was extubated on 2017. . 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 History of lithotripsy History of arthroplasty of the knee History of trigeminal neuralgia. Allergies/Adverse Reactions: Allergies amiodarone Allergy (Intermediate, Verified 11/15/17 10:35) BLACK LUNGS Objective Vital Signs 09/04/18 12:00 09/04/18 13:00 09/04/18 14:00 Temperature Pulse Rate 85 81 82 Respiratory Rate 8 L 31 H 34 H Blood Pressure 132/69 127/66 129/75 Pulse Oximetry 92 L 95 96 09/04/18 15:00 09/04/18 16:00 09/04/18 16:10 Temperature 97.9 F Pulse Rate 81 80 77 Respiratory Rate 34 H 35 H 17 Blood Pressure 115/81 118/79 Pulse Oximetry 99 100 09/04/18 17:00 09/04/18 18:00 09/04/18 18:06 Temperature Pulse Rate 88 101 H 106 H Respiratory Rate 17 38 H 46 H Blood Pressure 123/60 174/97 H 129/84 Pulse Oximetry 95 89 L 89 L 09/04/18 19:00 09/04/18 20:00 09/04/18 20:56 Temperature 97.8 F Pulse Rate 82 84 84 Respiratory Rate 22 30 H 28 H Blood Pressure 114/68 106/64 Pulse Oximetry 97 99 99 09/04/18 21:00 09/04/18 22:00 09/04/18 23:00 Temperature Pulse Rate 79 81 78 Respiratory Rate 30 H 35 H 28 H Blood Pressure 112/84 122/76 122/87 Pulse Oximetry 99 95 94 L 09/05/18 00:00 09/05/18 01:00 09/05/18 02:00 Temperature 97.4 F L Pulse Rate 86 87 86 Respiratory Rate 29 H 36 H 33 H Blood Pressure 91/68 L 106/77 131/92 H Pulse Oximetry 94 L 94 L 93 L 09/05/18 03:00 09/05/18 03:10 09/05/18 04:00 Temperature 97.8 F Pulse Rate 81 88 94 H Respiratory Rate 28 H 28 H 31 H Blood Pressure 127/58 L 108/63 Pulse Oximetry 94 L 97 96 09/05/18 05:00 09/05/18 06:00 09/05/18 07:00 Temperature Pulse Rate 95 H 93 H 100 H Respiratory Rate 31 H 33 H 37 H Blood Pressure 97/66 L 108/62 134/63 Pulse Oximetry 95 97 94 L 09/05/18 08:00 09/05/18 09:00 09/05/18 09:06 Temperature 97.9 F Pulse Rate 97 H 98 H 107 H Respiratory Rate 31 H 33 H 17 Blood Pressure 122/76 101/68 Pulse Oximetry 94 L 94 L 96 09/05/18 10:00 Temperature Pulse Rate 92 H Respiratory Rate 37 H Blood Pressure 111/76 Pulse Oximetry 97 Intake & Output 09/04/18 09/05/18 09/05/18 18:59 06:59 18:59 Intake Total 940 / 940 200 / 200 Output Total 500 / 500 1300 / 1300 Balance 440 / 440 -1100 / -1100 Weight 106 kg Intake: IV 700 / 700 200 / 200 Unasyn Inj 3 GM In NS Inj 100 200 / 200 200 / 200 ML @ 200 mls/hr IV.SIG Q6H BRIANNA Rx#:[id number] Azithromycin Inj 500 MG In NS 500 / 500 Inj 250 ML @ 250 mls/hr IV.SIG Q24H BRIANNA Rx#:[id number] Oral 240 / 240 Output: Urine 500 / 500 1300 / 1300 Other: # Voids 4 # Incontinent Voids 1 # Urine Diapers 1 Date of Last Bowel Movement 09/04/18 09/05/18 09/04/18 # Bowel Movements 1 Lab - Hematology Results 09/04/18 09/05/18 05:34 05:52 WBC 28.5 H 33.0 H RBC 3.73 L 3.59 L Hgb 11.9 L 11.2 L Hct 36.8 L 34.8 L MCV 98.7 96.8 MCH 31.9 31.1 MCHC 32.3 32.1 RDW 15.6 15.2 Plt Count 224 223 MPV 9.7 9.7 Prelim Diff (Auto) Slide review pending Neut % (Auto) 96.0 H Lymph % (Auto) 1.1 L [place] % (Auto) 2.7 Eos % (Auto) 0.0 Baso % (Auto) 0.2 Neut # (Auto) 31.7 H Lymph # (Auto) 0.3 L [place] # (Auto) 0.9 Eos # (Auto) 0.0 Baso # (Auto) 0.1 WBC Differential Manual diff final Seg Neuts % (Manual) 99 H Monocytes % (Manual) 1 Abs Neuts (Manual) 32.7 H Differential Comment . Platelet Estimate Normal Platelet Morphology Normal Lab - Chemistry Results 09/03/18 09/03/18 09/04/18 12:16 17:29 00:08 Sodium Potassium Chloride Carbon Dioxide Anion Gap BUN Creatinine Estimated GFR POC Glucose 168 H 198 H 126 H Random Glucose Calcium Phosphorus Magnesium Total Bilirubin Direct Bilirubin Indirect Bilirubin AST ALT Alkaline Phosphatase B-Natriuretic Peptide Total Protein Albumin 09/04/18 09/04/18 09/04/18 05:34 06:44 12:09 Sodium 147 H Potassium 4.0 Chloride 119 H Carbon Dioxide 22.6 Anion Gap 5 BUN 40 H Creatinine 1.01 Estimated GFR 71 L POC Glucose 120 H 161 H Random Glucose 125 H Calcium 9.0 Phosphorus Magnesium Total Bilirubin Direct Bilirubin Indirect Bilirubin AST ALT Alkaline Phosphatase B-Natriuretic Peptide Total Protein Albumin 09/04/18 09/04/18 09/05/18 16:56 17:03 01:45 Sodium Potassium Chloride Carbon Dioxide Anion Gap BUN Creatinine Estimated GFR POC Glucose 166 H 126 H Random Glucose Calcium Phosphorus Magnesium Total Bilirubin Direct Bilirubin Indirect Bilirubin AST ALT Alkaline Phosphatase B-Natriuretic Peptide 370 H Total Protein Albumin 09/05/18 05:52 Sodium 150 H Potassium 3.3 L Chloride 115 H Carbon Dioxide 26.0 Anion Gap 9 BUN 39 H Creatinine 0.97 Estimated GFR 74 L POC Glucose Random Glucose 116 H Calcium 8.9 Phosphorus 2.5 Magnesium 2.4 Total Bilirubin 1.2 H Direct Bilirubin 0.5 H Indirect Bilirubin 0.7 AST 23 ALT 26 Alkaline Phosphatase 68 B-Natriuretic Peptide Total Protein 5.2 L D Albumin 1.9 L Imaging: ITS Impressions Abdomen/Bladder Ultrasound 08/25/18 00:00 CONCLUSION: 1. No evidence of hydronephrosis. 2. Bilateral renal cysts, mostly simple, with one cyst demonstrating homogeneous low level echoes, located in the midpole the left kidney and measuring 4 cm. Venous Doppler Study 08/25/18 00:00 CONCLUSION: 1. The study is negative for bilateral lower extremity deep venous thrombosis. Chest X-Ray 09/03/18 00:00 CONCLUSION: Bilateral lung consolidation, slightly worse on the right compared with August 31. Small effusions. Abdomen/Pelvis CT 09/05/18 00:00 CONCLUSION: 1. Cavitary nodule right lower lobe measuring up to 2.5 cm in diameter. Differential diagnosis includes infection and neoplasm. Consider further evaluation with chest CT. Basilar airspace disease and small effusions, right greater than left. 2. Mild ascites and anasarca. Diffuse ileus, especially colonic. 3. 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 Numerous a definitive masses in the kidneys, worse on the left side, probably complex cysts. Head CT 09/05/18 00:00 CONCLUSION: 1. No acute intracranial abnormalities. . Physical Exam: PHYSICAL EXAMINATION: GENERAL: Patient in no acute distress. HEENT: Head is atraumatic. Extraocular muscles intact. Pupils reactive to light, without icterus. Oropharynx slightly dry mucosa. Dry crusted lesions at the upper and lower lip. NECK: Supple, without adenopathy. LUNGS: Coarse breath sounds with bilateral. Right greater than left. Good air movement on the left. HEART: Irregular S1, S2. No murmur audible. ABDOMEN: Obese, soft, tympanic, nontender. Decreased bowel sounds. EXTREMITIES: No clubbing, cyanosis, 1+ nonpitting edema. SKIN: No rash. ecchymoses at hands and legs. The face and neck have a red hue. NEUROLOGIC: Nonfocal. Generalized weakness. PSYCHIATRIC: The patient is calm. Assessment and Plan - Plan IMPRESSION: Pneumonia. Probable community-acquired. Possible cause of blood culture positive with Haemophilus. Cavitary nodule noted in the right lower lung. ? Etiology. 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 Altered mental status. Improving. Leukocytosis. Patient on steroids which could be causing increase of the white blood cell count also. Crusted lesion on the lip is very likely herpetic lesions. RECOMMENDATIONS: Stop Unasyn. Continue azithromycin. Begin topical acyclovir. Monitor white blood cell count. Monitor clinical status. Monitor temperature. Obtain sputum sample if possible. Consider aspiration of the cavitary lesion or bronchoscopy to further evaluate. Prolactin level. (ordered). D/W and RN.
[2018-09-05] MEDS: Azithromycin Inj 500 MG in Sodium Chlor 0.9% Inj 250 ML IV.SIG SCH (12:06)
--- NOTE | 2018-09-05 12:27 | P.CONNP ---
History of Present Illness Service: Nephrology Reason for Consult: Hypernatremia Primary Care Provider: UNKNOWN Chief Complaint: Shortness of breath History of Present Illness: Mr. Joiner was admitted on the with shortness of breath. CXR revealed bilateral infiltrates. He was intubated, then extubated on the . Patient has been hypernatremic. Today, serum Na is 150. patient is somewhat confused, not a reliable historian. He is from [place]. 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 His admitting weight was 96 kg, weight currently is 106kg. Review of Systems All other systems reviewed negative except as stated in HPI [facility] - History History Provided By: Patient - Medical History Medical History: Medical History (Last Reviewed 09/05/18 @ 08:14 by Lorrie Rubio) Hard of hearing Hyperlipidemia Atrial fibrillation COPD (chronic obstructive pulmonary disease) Hypertension - Surgical History Surgical History: Surgical History (Last Reviewed 09/03/18 @ 09:46 by Asha Davalos) Status post gamma knife treatment (Acute) History of lithotripsy Hx of total knee arthroplasty - Family History Family History: Family History (Last Reviewed 09/03/18 @ 09:46 by Asha Davalos) Other No pertinent family history - Tobacco History Second Hand Smoke Exposure: Yes Tobacco Use In Past 30 Days: No Smoking Status: Former smoker Tobacco Type: Cigarettes Years Smoked: 50 - Alcohol History How Often Do You Have a Drink Containing Alcohol: 2 to 3 times a week - Substance Use History Substance History: No History of Abuse - Travel History Recent Travel in the [place] Within the Last 8 Weeks: No Recent Travel Out of the Country Within the Last 8 Weeks: No - Immunization History Tetanus Immunization: <5 Years Hx Influenza Vaccine This Season: Yes Medications and Allergies Active Medications: Active Medications Acetaminophen (Tylenol) 650 mg PO Q6H PRN PRN Reason: PAIN 1-10 AND/OR FEVER >101F Last Admin: 09/05/18 02:23 Dose: 650 mg Acyclovir (Zovirax 5% Cream) 1 applicatio TOPICAL 5 TIMES A DAY [facility]Y Al Hydroxide/Mg Hydroxide (Milk Of Magnesia Liq) 30 ml PO Q12H PRN PRN Reason: Mild Constipation Albuterol (Albuterol Neb (Prn)) 2.5 mg NEB Q2HR NEB PRN PRN Reason: SHORTNESS OF BREATH/WHEEZING Last Admin: 08/29/18 13:00 Dose: 2.5 mg Albuterol (Duoneb Neb (Prn)) 1 ampul NEB Q4HR NEB PRN PRN Reason: SHORTNESS OF BREATH/WHEEZING Last Admin: 09/03/18 05:35 Dose: 1 ampul Albuterol (Duoneb Neb (Cherry)) 1 ampul NEB Q6HR NEB [facility] Last Admin: 09/05/18 09:03 Dose: 1 ampul Apixaban (Eliquis) 5 mg PO BID [facility] Last Admin: 09/05/18 08:31 Dose: 5 mg Artificial Tears (Tears Naturale Opth Drops) 1 drop EACH EYE Q8H [facility] Last Admin: 09/05/18 06:58 Dose: 1 drop Baclofen (Lioresal) 10 mg PO DAILY PRN PRN Reason: PAIN SCALE 1 TO 10 Bisacodyl (Dulcolax Supp) 10 mg RECTAL DAILY PRN PRN Reason: SEVERE CONSITIPATION Chlorhexidine Gluconate (Peridex 0.12% Oral Kit) 15 ml OROPHARYNG BID@0800, 1999 [facility] Last Admin: 09/05/18 11:51 Dose: Not Given Dextrose (D50w Vial) 50 ml IV.PUSH UNSCH PRN PRN Reason: PER HYPOGLYCEMIA PROTOCOL Fluticasone/Vilanterol (Breo Ellipta 200/25 Mcg Inh) 2 puff INH DAILY [facility] Last Admin: 09/05/18 09:00 Dose: 2 puff Furosemide (Lasix) 20 mg PO DAILY [facility] Last Admin: 09/05/18 08:31 Dose: 20 mg Glucagon (Glucagon Inj) 1 mg OTHER PRN PRN PRN Reason: for Hypoglycemia Protocol Hydralazine HCl (Apresoline Inj) 20 mg IV.PUSH Q4H PRN PRN Reason: SBP>180, DBP>110 Last Admin: 08/30/18 12:39 Dose: 20 mg Magnesium Sulfate 4 gm/ Sodium (Chloride) 100 mls @ 50 mls/hr IV.SIG UNSCH PRN PRN Reason: For Magnesium 0.9 - 1.1 mg/dL Potassium Chloride (Kcl 40 Meq Premix Inj) 40 meq in 100 mls @ 25 mls/hr IV.SIG Q2H PRN PRN Reason: For Potassium 2.8 - 3.2 mEq/L Last Infusion: 08/30/18 16:54 Dose: Infused Potassium Chloride (Kcl 20 Meq Premix Inj) 20 meq in 100 mls @ 50 mls/hr IV.SIG Q2H PRN PRN Reason: For Potassium 3.3 - 3.5 mEq/L Last Infusion: 09/01/18 06:50 Dose: Infused Potassium Chloride (Kcl 40 Meq Premix Inj) 40 meq in 100 mls @ 25 mls/hr IV.SIG UNSCH PRN PRN Reason: For Potassium 3.3 - 3.5 mEq/L Potassium Chloride (Kcl 20 Meq Premix Inj) 20 meq in 100 mls @ 50 mls/hr IV.SIG Q2H PRN PRN Reason: For Potassium 2.8 - 3.2 mEq/L Potassium Phosphate 30 mmol/ (Sodium Chloride) 260 mls @ 42 mls/hr IV.SIG UNSCH PRN PRN Reason: SEE LABEL COMMENTS Sodium Phosphate 30 mmol/ (Sodium Chloride) 260 mls @ 42 mls/hr IV.SIG UNSCH PRN PRN Reason: For Phosphorus < 2.5 mg/dL Magnesium Sulfate 2 gm/ Sodium (Chloride) 100 mls @ 50 mls/hr IV.SIG UNSCH PRN PRN Reason: For Magnesium 1.2 - 1.6 mg/dL Nicardipine/Sodium Chloride (Cardene 20 Mg/Ns 200 Ml Premix) 20 mg in 200 mls @ 50 mls/hr IV.SIG TITRATE PRN; Protocol PRN Reason: PER PROTOCOL Last Titration: 08/30/18 09:30 Dose: 0 mg/hr, 0 mls/hr Ampicillin Sodium/Sulbactam (Sodium 3 gm/ Sodium Chloride) 100 mls @ 200 mls/ hr IV.SIG Q6H [facility] Last Admin: 09/05/18 08:30 Dose: 200 mls/hr Azithromycin 500 mg/ Sodium (Chloride) 250 mls @ 250 mls/hr IV.SIG Q24H [facility] Last Admin: 09/05/18 12:06 Dose: 200 mls/hr Insulin Aspart (Novolog Insulin Correctional Sugar Inj) 0 unit SQ Q6HR [facility]ERRY; Protocol Last Admin: 09/05/18 12:06 Dose: 2 unit Labetalol HCl (Trandate Inj) 10 mg IV.PUSH Q4H PRN PRN Reason: SBP>180, DBP>100, HR>65 Last Admin: 08/29/18 08:58 Dose: 10 mg Lactobacillus Acidophilus (Lactinex) 1 tab PO BID [facility] Last Admin: 09/05/18 08:31 Dose: 1 tab Lactulose (Lactulose Liq) 30 ml PO DAILY PRN PRN Reason: SEVERE CONSITIPATION Magnesium Oxide (Mag-Ox) 800 mg PO UNSCH PRN PRN Reason: For Magnesium 1.2 - 1.6 mg/dL Metoprolol Tartrate (Lopressor) 25 mg PO BID [facility] Last Admin: 09/05/18 08:31 Dose: 25 mg Miscellaneous Medication () 1 each OROPHARYNG 0000,0400,1200,1600 [facility] Last Admin: 09/05/18 11:52 Dose: Not Given Ondansetron HCl (Zofran Inj) 4 mg IV.PUSH Q6H PRN PRN Reason: NAUSEA OR VOMITING Pantoprazole Sodium (Protonix) 40 mg PO DAILY [facility] Last Admin: 09/05/18 08:31 Dose: 40 mg Potassium Bicarb/Potassium Chloride (K-Lyte Cl Eff) 50 meq PO UNSCH PRN PRN Reason: For Potassium 3.3 - 3.5 mEq/L Potassium Phosphate (K-Phos Original) 2,000 mg PO Q4H PRN PRN Reason: Phosphorus Less Than 2.5 mg/dL Potassium Phosphate (K-Phos Original) 2,000 mg PO UNSCH PRN PRN Reason: SEE LABEL COMMENTS Prednisone (Deltasone) 20 mg PO DAILY [facility] Last Admin: 09/05/18 08:31 Dose: 20 mg Quetiapine Fumarate (Seroquel) 25 mg PO HS PRN PRN Reason: AGITATION Last Admin: 09/01/18 22:52 Dose: 25 mg Senna/Docusate Sodium (Marisa-Colace) 1 tab PO BID [facility] Last Admin: 09/05/18 11:52 Dose: Not Given Sennosides (Senokot) 17.2 mg PO Q12H PRN PRN Reason: Moderate Constipation Sodium Chloride (Ns Flush) 2 ml IV.FLUSH BID [facility] Last Admin: 09/05/18 11:52 Dose: 2 ml Sodium Chloride (Ns Flush) 2 ml IV.FLUSH PRN PRN PRN Reason: FLUSH AFTER USING IV ACCESS Sodium Chloride (Ns Flush) 0 ml IV.FLUSH DAILY [facility] Last Admin: 09/05/18 11:52 Dose: Not Given Allergies Allergy/AdvReac Type Severity Reaction Status Date / Time amiodarone Allergy Intermediate BLACK LUNGS Verified 11/15/17 10:35 Home Medications Medication Instructions Recorded Confirmed Type apixaban [Eliquis] 5 mg PO BID 08/25/18 08/25/18 History fluticasone-vilanterol [Breo 1 inh INHALATION DAILY 08/25/18 08/25/18 History Ellipta] metoprolol tartrate 12.5 mg PO DAILY 08/25/18 08/25/18 History prednisone 2.5 mg PO Q OTHER DAY 08/25/18 08/25/18 History prednisone 5 mg PO Q OTHER DAY 08/25/18 08/25/18 History Exam Vital signs: Vital Signs 09/04/18 13:00 09/04/18 14:00 09/04/18 15:00 Temperature Pulse Rate 81 82 81 Respiratory Rate 31 H 34 H 34 H Blood Pressure 127/66 129/75 115/81 Pulse Oximetry 95 96 99 09/04/18 16:00 09/04/18 16:10 09/04/18 17:00 Temperature 97.9 F Pulse Rate 80 77 88 Respiratory Rate 35 H 17 17 Blood Pressure 118/79 123/60 Pulse Oximetry 100 95 09/04/18 18:00 09/04/18 18:06 09/04/18 19:00 Temperature Pulse Rate 101 H 106 H 82 Respiratory Rate 38 H 46 H 22 Blood Pressure 174/97 H 129/84 114/68 Pulse Oximetry 89 L 89 L 97 09/04/18 20:00 09/04/18 20:56 09/04/18 21:00 Temperature 97.8 F Pulse Rate 84 84 79 Respiratory Rate 30 H 28 H 30 H Blood Pressure 106/64 112/84 Pulse Oximetry 99 99 99 09/04/18 22:00 09/04/18 23:00 09/05/18 00:00 Temperature 97.4 F L Pulse Rate 81 78 86 Respiratory Rate 35 H 28 H 29 H Blood Pressure 122/76 122/87 91/68 L Pulse Oximetry 95 94 L 94 L 09/05/18 01:00 09/05/18 02:00 09/05/18 03:00 Temperature Pulse Rate 87 86 81 Respiratory Rate 36 H 33 H 28 H Blood Pressure 106/77 131/92 H 127/58 L Pulse Oximetry 94 L 93 L 94 L 09/05/18 03:10 09/05/18 04:00 09/05/18 05:00 Temperature 97.8 F Pulse Rate 88 94 H 95 H Respiratory Rate 28 H 31 H 31 H Blood Pressure 108/63 97/66 L Pulse Oximetry 97 96 95 09/05/18 06:00 09/05/18 07:00 09/05/18 08:00 Temperature 97.9 F Pulse Rate 93 H 100 H 97 H Respiratory Rate 33 H 37 H 31 H Blood Pressure 108/62 134/63 122/76 Pulse Oximetry 97 94 L 94 L 09/05/18 09:00 09/05/18 09:06 09/05/18 10:00 Temperature Pulse Rate 98 H 107 H 92 H Respiratory Rate 33 H 17 37 H Blood Pressure 101/68 111/76 Pulse Oximetry 94 L 96 97 Intake & Output 09/04/18 09/05/18 09/05/18 18:59 06:59 18:59 Intake Total 940 / 940 200 / 200 Output Total 500 / 500 1300 / 1300 Balance 440 / 440 -1100 / -1100 Weight 106 kg Intake: IV 700 / 700 200 / 200 Unasyn Inj 3 GM In NS Inj 100 200 / 200 200 / 200 ML @ 200 mls/hr IV.SIG Q6H [facility] Rx#:[id number] Azithromycin Inj 500 MG In NS 500 / 500 Inj 250 ML @ 250 mls/hr IV.SIG Q24H [facility] Rx#:[id number] Oral 240 / 240 Output: Urine 500 / 500 1300 / 1300 Other: # Voids 4 # Incontinent Voids 1 # Urine Diapers 1 Date of Last Bowel Movement 09/04/18 09/05/18 09/04/18 # Bowel Movements 1 - Constitutional no acute distress, obese, chronically ill appearing - Routine HEENT Exam Head: Present: normocephalic, atraumatic ENT: Present: mucous membranes moist Comments: he has crusty vesicular lesions around the lips. - Routine Respiratory Exam Present: CTA bilaterally - Routine Cardiovascular Exam Present: RRR, S1, S2 - Routine Abdominal Exam Present: soft - Routine Extremities Exam Present: edema - Routine Neurological Exam mumbles a few words. confusion. Moves all extremities. Results - Lab Results 09/05/18 05:52 09/05/18 05:52 Most recent lab results ABG pH 7.44 (7.380-7.420) H 08/28/18 18:30 ABG pCO2 36 mmHg (38-42) L 08/28/18 18:30 ABG pO2 96 mmHg (61-120) 08/28/18 18:30 ABG HCO3 24 mmol/L (22-26) 08/28/18 18:30 Calcium 8.9 mg/dL (8.5-10.1) 09/05/18 05:52 Phosphorus 2.5 mg/dL (2.5-4.9) 09/05/18 05:52 Magnesium 2.4 mg/dL (1.5-2.5) 09/05/18 05:52 Assessment and Plan - Assessment (1) Hypernatremia Code(s): E87.0 - Hyperosmolality and hypernatremia Status: Acute Plan: Likely due to patient receiving hypertonic fluids (0.9% NS), and because of confusion he has not had the capacity for asking for water. He therefore has free water deficit. Continue D5W. I will also add Diuril. Replace potassium. Avoid nephrotoxic agents. Monitor for hyperglycemia, if patient develops hyperglycemia, osmotic diuresis will worsen hypernatremia. (2) Leukocytosis Code(s): D72.829 - Elevated white blood cell count, unspecified Status: Acute Plan: Has been diagnosed with pneumonia. Also is on steroids. (3) Pneumonia Code(s): J18.9 - Pneumonia, unspecified organism Status: Acute Plan: ID following. Patient is on Zithromax and Unasyn. It appears that Unasyn will be stopped. Notes were reviewed. - Attending Attestation Thanks for the consult. (2) Leukocytosis Qualifiers: Leukocytosis type: unspecified Qualified Code(s): D72.829 - Elevated white blood cell count, unspecified (3) Pneumonia Qualifiers: Pneumonia type: due to unspecified organism Laterality: bilateral Lung location: unspecified part of lung Qualified Code(s): J18.9 - Pneumonia, unspecified organism
--- NOTE | 2018-09-05 12:59 | P.PN ---
Subjective Interval history: Alert and Confused. No fever. On O2 4 l. Sats 98. Has a cavitary Right lung lesion. 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 Physical Exam Vital signs: Vital Signs 09/04/18 13:00 09/04/18 14:00 09/04/18 15:00 Temperature Pulse Rate 81 82 81 Respiratory Rate 31 H 34 H 34 H Blood Pressure 127/66 129/75 115/81 Pulse Oximetry 95 96 99 09/04/18 16:00 09/04/18 16:10 09/04/18 17:00 Temperature 97.9 F Pulse Rate 80 77 88 Respiratory Rate 35 H 17 17 Blood Pressure 118/79 123/60 Pulse Oximetry 100 95 09/04/18 18:00 09/04/18 18:06 09/04/18 19:00 Temperature Pulse Rate 101 H 106 H 82 Respiratory Rate 38 H 46 H 22 Blood Pressure 174/97 H 129/84 114/68 Pulse Oximetry 89 L 89 L 97 09/04/18 20:00 09/04/18 20:56 09/04/18 21:00 Temperature 97.8 F Pulse Rate 84 84 79 Respiratory Rate 30 H 28 H 30 H Blood Pressure 106/64 112/84 Pulse Oximetry 99 99 99 09/04/18 22:00 09/04/18 23:00 09/05/18 00:00 Temperature 97.4 F L Pulse Rate 81 78 86 Respiratory Rate 35 H 28 H 29 H Blood Pressure 122/76 122/87 91/68 L Pulse Oximetry 95 94 L 94 L 09/05/18 01:00 09/05/18 02:00 09/05/18 03:00 Temperature Pulse Rate 87 86 81 Respiratory Rate 36 H 33 H 28 H Blood Pressure 106/77 131/92 H 127/58 L Pulse Oximetry 94 L 93 L 94 L 09/05/18 03:10 09/05/18 04:00 09/05/18 05:00 Temperature 97.8 F Pulse Rate 88 94 H 95 H Respiratory Rate 28 H 31 H 31 H Blood Pressure 108/63 97/66 L Pulse Oximetry 97 96 95 09/05/18 06:00 09/05/18 07:00 09/05/18 08:00 Temperature 97.9 F Pulse Rate 93 H 100 H 97 H Respiratory Rate 33 H 37 H 31 H Blood Pressure 108/62 134/63 122/76 Pulse Oximetry 97 94 L 94 L 09/05/18 09:00 09/05/18 09:06 09/05/18 10:00 Temperature Pulse Rate 98 H 107 H 92 H Respiratory Rate 33 H 17 37 H Blood Pressure 101/68 111/76 Pulse Oximetry 94 L 96 97 Intake & Output 09/04/18 09/05/18 09/05/18 18:59 06:59 18:59 Intake Total 940 / 940 200 / 200 Output Total 500 / 500 1300 / 1300 Balance 440 / 440 -1100 / -1100 Weight 106 kg Intake: IV 700 / 700 200 / 200 Unasyn Inj 3 GM In NS Inj 100 200 / 200 200 / 200 ML @ 200 mls/hr IV.SIG Q6H [facility] Rx#:[id number] Azithromycin Inj 500 MG In NS 500 / 500 Inj 250 ML @ 250 mls/hr IV.SIG Q24H [facility] Rx#:[id number] Oral 240 / 240 Output: Urine 500 / 500 1300 / 1300 Other: # Voids 4 # Incontinent Voids 1 # Urine Diapers 1 Date of Last Bowel Movement 09/04/18 09/05/18 09/04/18 # Bowel Movements 1 Narrative: GENERAL: Elderly W/M alert . 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 SKIN: Warm and dry. HEAD: Normocephalic. EYES: No scleral icterus. No injection or drainage. NECK: Supple, trachea midline. No JVD. CARDIOVASCULAR: Regular rate and rhythm without murmurs, gallops, or rubs. RESPIRATORY: Breath sounds equal bilaterally. Basal crackles +. No accessory muscle use. GASTROINTESTINAL: Abdomen soft, non-tender, nondistended. MUSCULOSKELETAL: No cyanosis. +2 bilateral lower extremity edema. BACK: Nontender without obvious deformity. No CVA tenderness. - Urinary Catheter Management Indwelling Temp Sensing Catheter Cath placed during this visit: yes, but has since been removed by the nurse Reason for continuing: Decision to DC catheter Insertion date: 08/25/18 Insertion time: 14:20 Removal date: 08/29/18 Removal time: 12:30 Results - Labs CBC & Chem 7: 09/05/18 05:52 09/05/18 05:52 Laboratory Results - last 24 hr 11/28/18 11/28/18 11/29/18 16:56 17:03 01:45 WBC RBC Hgb Hct MCV MCH MCHC RDW Plt Count MPV Prelim Diff (Auto) Neut % (Auto) Lymph % (Auto) Norton % (Auto) Eos % (Auto) Baso % (Auto) Neut # (Auto) Lymph # (Auto) Norton # (Auto) Eos # (Auto) Baso # (Auto) WBC Differential Seg Neuts % (Manual) Monocytes % (Manual) Abs Neuts (Manual) Differential Comment Platelet Estimate Platelet Morphology Sodium Potassium Chloride Carbon Dioxide Anion Gap BUN Creatinine Estimated GFR POC Glucose 166 H 126 H Random Glucose Calcium Phosphorus Magnesium Total Bilirubin Direct Bilirubin Indirect Bilirubin AST ALT Alkaline Phosphatase B-Natriuretic Peptide 370 H Total Protein Albumin Procalcitonin Stl C.difficile DNA Amp St C. diff Tox Epid 027 09/05/18 09/05/18 09/05/18 04:05 05:52 05:52 WBC 33.0 H RBC 3.59 L Hgb 11.2 L Hct 34.8 L MCV 96.8 MCH 31.1 MCHC 32.1 RDW 15.2 Plt Count 223 MPV 9.7 Prelim Diff (Auto) Slide review pending Neut % (Auto) 96.0 H Lymph % (Auto) 1.1 L Norton % (Auto) 2.7 Eos % (Auto) 0.0 Baso % (Auto) 0.2 Neut # (Auto) 31.7 H Lymph # (Auto) 0.3 L Norton # (Auto) 0.9 Eos # (Auto) 0.0 Baso # (Auto) 0.1 WBC Differential Manual diff final Seg Neuts % (Manual) 99 H Monocytes % (Manual) 1 Abs Neuts (Manual) 32.7 H Differential Comment . Platelet Estimate Normal Platelet Morphology Normal Sodium 150 H Potassium 3.3 L Chloride 115 H Carbon Dioxide 26.0 Anion Gap 9 BUN 39 H Creatinine 0.97 Estimated GFR 74 L POC Glucose Random Glucose 116 H Calcium 8.9 Phosphorus 2.5 Magnesium 2.4 Total Bilirubin 1.2 H Direct Bilirubin 0.5 H Indirect Bilirubin 0.7 AST 23 ALT 26 Alkaline Phosphatase 68 B-Natriuretic Peptide Total Protein 5.2 L D Albumin 1.9 L Procalcitonin Stl C.difficile DNA Amp Negative St C. diff Tox Epid 027 Negative 09/05/18 09/05/18 05:52 11:47 WBC RBC Hgb Hct MCV MCH MCHC RDW Plt Count MPV Prelim Diff (Auto) Neut % (Auto) Lymph % (Auto) Norton % (Auto) Eos % (Auto) Baso % (Auto) Neut # (Auto) Lymph # (Auto) Norton # (Auto) Eos # (Auto) Baso # (Auto) WBC Differential Seg Neuts % (Manual) Monocytes % (Manual) Abs Neuts (Manual) Differential Comment Platelet Estimate Platelet Morphology Sodium Potassium Chloride Carbon Dioxide Anion Gap BUN Creatinine Estimated GFR POC Glucose 169 H Random Glucose Calcium Phosphorus Magnesium Total Bilirubin Direct Bilirubin Indirect Bilirubin AST ALT Alkaline Phosphatase B-Natriuretic Peptide Total Protein Albumin Procalcitonin 0.44 H Stl C.difficile DNA Amp St C. diff Tox Epid 027 - Imaging Impressions Abdomen/Pelvis CT 09/05/18 00:00 CONCLUSION: 1. Cavitary nodule right lower lobe measuring up to 2.5 cm in diameter. Differential diagnosis includes infection and neoplasm. Consider further evaluation with chest CT. Basilar airspace disease and small effusions, right greater than left. 2. Mild ascites and anasarca. Diffuse ileus, especially colonic. 3. 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 Numerous a definitive masses in the kidneys, worse on the left side, probably complex cysts. Head CT 09/05/18 00:00 CONCLUSION: 1. No acute intracranial abnormalities. . Assessment and Plan - Assessment (1) COPD (chronic obstructive pulmonary disease) Code(s): J44.9 - Chronic obstructive pulmonary disease, unspecified Status: Acute (2) Severe sepsis Code(s): A41.9 - Sepsis, unspecified organism; R65.20 - Severe sepsis without septic shock Status: Acute (3) Pneumonia Code(s): J18.9 - Pneumonia, unspecified organism Status: Acute (4) Acute respiratory failure with hypoxia and hypercapnia Code(s): J96.01 - Acute respiratory failure with hypoxia; J96.02 - Acute respiratory failure with hypercapnia Status: Acute (5) Lactic acidosis Code(s): E87.2 - Acidosis Status: Acute (6) Atrial fibrillation with rapid ventricular response Code(s): I48.91 - Unspecified atrial fibrillation Status: Acute (7) Acute kidney injury Code(s): N17.9 - Acute kidney failure, unspecified Status: Acute (8) Chronic steroid use Status: Chronic (9) Hypertension Code(s): I10 - Essential (primary) hypertension Status: Chronic (10) Pulmonary cavitary lesion Code(s): J98.4 - Other disorders of lung Status: Acute - Plan 1. Place on Home CPAP ,FIO2 28 % at HS 2. O2 N/C 3 L daytime 3. Duoneb nebs q6h 4. CT chest today 5. Continue antibiotics per ID . 6. Prednisone 15 mg daily 7. Continue Eliquis 5 mg BID. 8. Breo 200/25 Mcg, 1 puff daily 9. Add EzPAP with Nebs qid. 10. lasix 20 mg daily (3) Pneumonia Qualifiers: Pneumonia type: due to unspecified organism Laterality: bilateral Lung location: unspecified part of lung Qualified Code(s): J18.9 - Pneumonia, unspecified organism (9) Hypertension Qualifiers: Hypertension type: essential hypertension Qualified Code(s): I10 - Essential (primary) hypertension
[2018-09-05] MEDS: Chlorothiazide Inj 500 MG Vial IV.PUSH SCH ×2 (14:18→15:19)
--- NOTE | 2018-09-05 15:51 | MG ---
cc: Carline Henderson MD EEG NUMBER: [id number]. REFERRING PHYSICIAN: Myles Gonzalez MD CLINICAL HISTORY: Drowsy, asleep with photic stimulation. CT was negative. This is an 80-year-old man who came in with increased shortness of breath, musculoskeletal pleuritic chest pain, history of atrial fibrillation, hyperlipidemia, hypertension, lithotripsy with Gamma Knife treatment on ampicillin, Eliquis, low pressure, Lasix, Protonix, prednisone. DESCRIPTION OF RECORD: A bit of attenuated background. Mild slowing predominantly of 5 Hz. Occasional possible PVC versus arrhythmia. It may be truly an arrhythmia noted in his EKG. Needs followup. Photic stimulation with minimal driving response. IMPRESSION: Mild slowing of background. May be due to somnolence versus encephalopathic process versus medicine effect. I do not see any epileptiform features. There may be what looks like an arrhythmia in his 1-lead electrocardiogram on the electroencephalogram tracing. Clinical correlation with patient's electrocardiogram and rhythm on his playground monitor, but no epileptiform features just mild slowing. MD ISIDRO Guadalupe/zeynep , 03:34 PM , 03:40 PM
--- NOTE | 2018-09-05 16:35 | CT ---
EXAM DATE: 09/05/2018 4:27 PM EST AGE/SEX: 83 years / Male INDICATIONS: Mass. Short of breath. CLINICAL DATA: This is the patient's initial encounter. Patient reports that signs and symptoms have been present for 1 week and indicates a pain score of 0/10. MEDICAL/SURGICAL HISTORY: Chronic obstructive pulmonary disease. A-fib. None. RADIATION DOSE: 19.73 CTDI (mGy) COMPARISON: [facility], CHEST 1V SINGLE AP, 08/25/2018. . TECHNIQUE: Multiple contiguous axial images were obtained through the chest without contrast. Image s were obtained in suspended respiration using multiple row detector helical technique. Using automa deanna exposure control and adjustment of the mA and/or kV according to patient size, radiation dose was kept as low as reasonably achievable to obtain optimal diagnostic quality images. DICOM format imag e data is available electronically for review and comparison. FINDINGS: Lungs: There is patchy bilateral airspace disease and coarse interstitial thickening present. This g enerally worse on the right than the left. There is a 2.3 cm cavitating mass in the central right low er lobe. Mediastinum: There is good visualization of the great vessels of the middle mediastinum. No evidenc e of mediastinal or hilar adenopathy/mass. Pleurae: Small right pleural effusion. Axillae: Unremarkable. Bony Structures: Unremarkable. Miscellaneous: Fairly benign appearing 3 cm left adrenal mass. Left renal cyst. CONCLUSION: 1. 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 2. Right lower lobe cavitary mass. 3. Probably benign left adrenal lesion Electronically signed by: Ed Carter MD 09/05/2018 4:34 PM EST
[2018-09-05] MEDS: Potassium Chlor 20 mEq Premix 20 MEQ/100 ML PIGGYBACK IV.SIG PRN (18:25)
--- NOTE | 2018-09-05 19:40 | P.PNIM ---
Subjective Interval history: patient seen this afternoon after returning from CT. He says he is feeling all right. Denies any chest pain or shortness of breath. Physical Exam Vital signs: Vital Signs 09/04/18 20:00 09/04/18 20:56 09/04/18 21:00 Temperature 97.8 F Pulse Rate 84 84 79 Respiratory Rate 30 H 28 H 30 H Blood Pressure 106/64 112/84 Pulse Oximetry 99 99 99 09/04/18 22:00 09/04/18 23:00 09/05/18 00:00 Temperature 97.4 F L Pulse Rate 81 78 86 Respiratory Rate 35 H 28 H 29 H Blood Pressure 122/76 122/87 91/68 L Pulse Oximetry 95 94 L 94 L 09/05/18 01:00 09/05/18 02:00 09/05/18 03:00 Temperature Pulse Rate 87 86 81 Respiratory Rate 36 H 33 H 28 H Blood Pressure 106/77 131/92 H 127/58 L Pulse Oximetry 94 L 93 L 94 L 09/05/18 03:10 09/05/18 04:00 09/05/18 05:00 Temperature 97.8 F Pulse Rate 88 94 H 95 H Respiratory Rate 28 H 31 H 31 H Blood Pressure 108/63 97/66 L Pulse Oximetry 97 96 95 09/05/18 06:00 09/05/18 07:00 09/05/18 08:00 Temperature 97.9 F Pulse Rate 93 H 100 H 97 H Respiratory Rate 33 H 37 H 31 H Blood Pressure 108/62 134/63 122/76 Pulse Oximetry 97 94 L 94 L 09/05/18 09:00 09/05/18 09:06 09/05/18 10:00 Temperature Pulse Rate 98 H 107 H 92 H Respiratory Rate 33 H 17 37 H Blood Pressure 101/68 111/76 Pulse Oximetry 94 L 96 97 09/05/18 11:00 09/05/18 12:00 09/05/18 13:00 Temperature 98.1 F Pulse Rate 91 H 93 H Respiratory Rate 32 H 31 H Blood Pressure 122/72 130/69 Pulse Oximetry 98 96 92 L 09/05/18 13:03 09/05/18 14:00 09/05/18 15:00 Temperature Pulse Rate 91 H 91 H 90 Respiratory Rate 36 H 34 H Blood Pressure 123/77 127/65 120/74 Pulse Oximetry 94 L 96 98 11/29/18 15:20 09/05/18 16:00 09/05/18 17:00 Temperature 98.0 F Pulse Rate 79 94 H 99 H Respiratory Rate 18 29 H 30 H Blood Pressure 125/61 140/71 Pulse Oximetry 96 09/05/18 18:00 Temperature Pulse Rate 96 H Respiratory Rate 34 H Blood Pressure 162/65 H Pulse Oximetry 95 Intake & Output 09/05/18 09/05/18 09/06/18 06:59 18:59 06:59 Intake Total 200 / 200 340 / 340 Output Total 1300 / 1300 600 / 600 Balance -1100 / -1100 -260 / -260 Weight 106 kg Intake: IV 200 / 200 100 / 100 Unasyn Inj 3 GM In NS Inj 100 200 / 200 100 / 100 ML @ 200 mls/hr IV.SIG Q6H BRIANNA Rx#:[id number] Oral 240 / 240 Output: Urine 1300 / 1300 600 / 600 Other: # Voids 4 Date of Last Bowel Movement 09/05/18 09/05/18 # Bowel Movements 1 1 Narrative: GENERAL: Extensive perioral lesions with the appearance of herpes as before.He appears confused however is able to tell me it is 2018. SKIN: Warm and dry. HEAD: Normocephalic. EYES: No scleral icterus. No injection or drainage. NECK: Supple, trachea midline. No JVD. CARDIOVASCULAR: Regular rate and rhythm without murmurs, gallops, or rubs. RESPIRATORY: Breath sounds equal bilaterally. Basal crackles +. No accessory muscle use. GASTROINTESTINAL: Abdomen soft, non-tender, nondistended. MUSCULOSKELETAL: No cyanosis. +2 bilateral lower extremity edema. BACK: Nontender without obvious deformity. No CVA tenderness. - Urinary Catheter Management Indwelling Temp Sensing Catheter Cath placed during this visit: yes, but has since been removed by the nurse Reason for continuing: Decision to DC catheter Insertion date: 08/25/18 Insertion time: 14:20 Removal date: 08/29/18 Removal time: 12:30 Results - Labs CBC & Chem 7: 09/05/18 05:52 09/05/18 05:52 Laboratory Results - last 24 hr 09/05/18 09/05/18 09/05/18 01:45 04:05 05:52 WBC 33.0 H RBC 3.59 L Hgb 11.2 L Hct 34.8 L MCV 96.8 MCH 31.1 MCHC 32.1 RDW 15.2 Plt Count 223 MPV 9.7 Prelim Diff (Auto) Slide review pending Neut % (Auto) 96.0 H Lymph % (Auto) 1.1 L Gregory % (Auto) 2.7 Eos % (Auto) 0.0 Baso % (Auto) 0.2 Neut # (Auto) 31.7 H Lymph # (Auto) 0.3 L Gregory # (Auto) 0.9 Eos # (Auto) 0.0 Baso # (Auto) 0.1 WBC Differential Manual diff final Seg Neuts % (Manual) 99 H Monocytes % (Manual) 1 Abs Neuts (Manual) 32.7 H Differential Comment . Platelet Estimate Normal Platelet Morphology Normal Sodium Potassium Chloride Carbon Dioxide Anion Gap BUN Creatinine Estimated GFR POC Glucose 126 H Random Glucose Calcium Phosphorus Magnesium Total Bilirubin Direct Bilirubin Indirect Bilirubin AST ALT Alkaline Phosphatase Ammonia Total Protein Albumin Procalcitonin Stl C.difficile DNA Amp Negative St C. diff Tox Epid 027 Negative 09/05/18 09/05/18 09/05/18 05:52 05:52 11:47 WBC RBC Hgb Hct MCV MCH MCHC RDW Plt Count MPV Prelim Diff (Auto) Neut % (Auto) Lymph % (Auto) Gregory % (Auto) Eos % (Auto) Baso % (Auto) Neut # (Auto) Lymph # (Auto) Gregory # (Auto) Eos # (Auto) Baso # (Auto) WBC Differential Seg Neuts % (Manual) Monocytes % (Manual) Abs Neuts (Manual) Differential Comment Platelet Estimate Platelet Morphology Sodium 150 H Potassium 3.3 L Chloride 115 H Carbon Dioxide 26.0 Anion Gap 9 BUN 39 H Creatinine 0.97 Estimated GFR 74 L POC Glucose 169 H Random Glucose 116 H Calcium 8.9 Phosphorus 2.5 Magnesium 2.4 Total Bilirubin 1.2 H Direct Bilirubin 0.5 H Indirect Bilirubin 0.7 AST 23 ALT 26 Alkaline Phosphatase 68 Ammonia Total Protein 5.2 L D Albumin 1.9 L Procalcitonin 0.44 H Stl C.difficile DNA Amp St C. diff Tox Epid 027 09/05/18 09/05/18 17:05 17:23 WBC RBC Hgb Hct MCV MCH MCHC RDW Plt Count MPV Prelim Diff (Auto) Neut % (Auto) Lymph % (Auto) Gregory % (Auto) Eos % (Auto) Baso % (Auto) Neut # (Auto) Lymph # (Auto) Gregory # (Auto) Eos # (Auto) Baso # (Auto) WBC Differential Seg Neuts % (Manual) Monocytes % (Manual) Abs Neuts (Manual) Differential Comment Platelet Estimate Platelet Morphology Sodium Potassium Chloride Carbon Dioxide Anion Gap BUN Creatinine Estimated GFR POC Glucose 169 H Random Glucose Calcium Phosphorus Magnesium Total Bilirubin Direct Bilirubin Indirect Bilirubin AST ALT Alkaline Phosphatase Ammonia 15 Total Protein Albumin Procalcitonin Stl C.difficile DNA Amp St C. diff Tox Epid 027 - Imaging Impressions Abdomen/Pelvis CT 09/05/18 00:00 CONCLUSION: 1. Cavitary nodule right lower lobe measuring up to 2.5 cm in diameter. Differential diagnosis includes infection and neoplasm. Consider further evaluation with chest CT. Basilar airspace disease and small effusions, right greater than left. 2. Mild ascites and anasarca. Diffuse ileus, especially colonic. 3. 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 Numerous a definitive masses in the kidneys, worse on the left side, probably complex cysts. Chest CT 09/05/18 00:00 CONCLUSION: 1. 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 2. Right lower lobe cavitary mass. 3. Probably benign left adrenal lesion Head CT 09/05/18 00:00 CONCLUSION: 1. No acute intracranial abnormalities. . Assessment and Plan - Plan 83 Y/O male with acute respiratory failure secondary to pneumonia. His ICU course is somewhat prolonged. Has had issues with agitation at night and not wearing bipap. Pneumonia is persisting. His antibiotics were changed. He is showing some improvement. Pulmonology following. Continue to treat pneumonia per ID. He is very deconditioned and will likely need rehab. His 's goal is [place]. Other active issues include hypernatremia and ing. 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 C. pneumonia serology positive. DW ID. Azithromycin added to Zosyn. Patient previously completed 7 days of Rocephin. Encouraged the patient to use CPAP when he is sleeping. Continue breathing treatments = 09/04. Patient reports some difficulty swallowing however disagrees. Will order speech evaluation. =09/05. Chest CT with acute cavitary pneumonia. Continue treatment as per pulmonology. Appreciate assistance. suspect ICU induced delirium Multifactorial. CT brain with no acute findings. EEG with encephalopathy, no indication of seizure activity. Hypernatremia: = 09/04. Sodium improved 147 today. With some fluid overload will order Lasix. Chair tomorrow =09/05. Sodium 150 worsened. Appreciate nephrology assistance. IV fluids and diuretics as per nephrology. Atrial fibrillation with rapid ventricular response currently rate controlled Elevated troponin History of essential hypertension Hyperlipidemia Lactic acidosis Trop 0.27 on admission, most recent 0.08, no longer trending Echo: EF 45%, RV enlargement/ dysfunction, PAP 38 mm Hg Continue metoprolol at 50 mg BID s/p Cardene drip = 09/04. With some fluid overload with bilateral lower extremity edema will order BNP and diurese. =09/05. BNP in the high 300s. 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 Will order echocardiogram for evaluation. Delirium, ing: //Suspected ICU induced delirium versus encephalopathy Improving. Delirium precautions (lights on/ shades up during the day, limit nighttime disruptions, frequent reorientation, use hearing aids) Seroquel at night as needed. = 09/04. concerned about confusion. Extensive perioral herpes. Will order EEG, CT brain. Perioral herpes We will order PCR herpes.pending Acute hyperglycemia Chronic steroid use Low TSH SSI TSH was 0.094, normal T4, T3 low-- would recheck in 4 weeks after critical illness has resolved On steroids as noted above Elevated creatinine question acute kidney injury, normalizing improved No urine eosinophils noted Renal ultrasound - bilateral renal cyst. Possible hemorrhagic left renal cyst Avoid nephrotoxic medication Monitor urine output Accurate I's and O's Prophylaxis -GI -pantoprazole -DVT -SCD/apixaban Discharge Planning: Improving. transfer to floor. Will likely need SNF.
[2018-09-05] MEDS: Dextrose 5% in Water Inj 1,000 ML IV.CONT SCH (20:56)
[2018-09-06] MEDS: Ampicillin/Sulbactam Inj 3 GM in Sodium Chloride 0.9% Inj 100 ML IV.SIG SCH ×3 (02:30→16:59)
[2018-09-06] MEDS: Oral Hygiene Kit OROPHARYNG SCH ×5 (05:00→23:11)
[2018-09-06] MEDS: Artificial Tears Opth Drops 15 ML Bottle EACH EYE SCH ×4 (05:01→23:10)
[2018-09-06] MEDS: Insulin NovoLOG Aspart Correctional Sugar Inj SQ SCH ×6 (05:01→23:17)
[2018-09-06 05:56] LABS: Baso # (Auto) 0.1 th/mm3 (0.0-0.2); Baso % (Auto) 0.6 % (0.0-2.0); Eos # (Auto) 0.1 th/mm3 (0.0-0.4); Eos % (Auto) 0.2 % (0.0-4.0); Hematocrit 29.7 % (39.0-51.0); Lymph # (Auto) 0.5 th/mm3 (1.0-4.8); Lymph % (Auto) 2.2 % (9.0-44.0); Mean Corpuscular HGB Conc 33.6 % (32.0-36.0); Mean Corpuscular Volume 95.4 fL (80.0-100.0); Mean Platelet Volume 9.8 fL (7.0-11.0); Mono # (Auto) 0.7 th/mm3 (0.0-0.9); Neut # (Auto) 21.3 th/mm3 (1.8-7.7); Platelet Count 217 th/mm3 (150-450); Red Blood Count 3.11 mil/mm3 (4.50-5.90); Red Cell Distribution Width 15.3 % (11.6-17.2); White Blood Count 22.7 th/mm3 (4.0-11.0)
[2018-09-06 06:24] LABS: Albumin 1.8 g/dL (3.4-5.0); Calcium 8.7 mg/dL (8.5-10.1); Carbon Dioxide 27.9 meq/L (21.0-32.0); Magnesium 2.3 mg/dL (1.5-2.5); Potassium 3.6 meq/L (3.5-5.1)
[2018-09-06] MEDS: Chlorothiazide Inj 500 MG Vial IV.PUSH SCH (08:53)
[2018-09-06] MEDS: Lactobacillus Acidophilus/L. Spores Tablet PO SCH ×2 (08:54→21:08)
[2018-09-06] MEDS: Senna/Docusate Sodium 8.6/50 MG Tablet PO SCH ×2 (08:54→21:09)
[2018-09-06] MEDS: Metoprolol Tartrate 25 MG Tablet PO SCH ×2 (08:54→21:08)
[2018-09-06] MEDS: Chlorhexidine 0.12% Oral Kit 15 ML UDC OROPHARYNG SCH ×2 (08:55→20:21)
[2018-09-06] MEDS ORDERED: predniSONE 5 MG Tablet PO SCH (09:00)
--- NOTE | 2018-09-06 09:08 | P.PNIM ---
Subjective Interval history: Patient seen this morning during physical therapy. Patient trying to speak, however very weak voice this morning. Appears to deny pain Physical Exam Vital signs: Vital Signs 09/05/18 09:06 09/05/18 10:00 09/05/18 11:00 Temperature Pulse Rate 107 H 92 H 91 H Respiratory Rate 17 37 H 32 H Blood Pressure 111/76 122/72 Pulse Oximetry 96 97 98 09/05/18 12:00 09/05/18 13:00 09/05/18 13:03 Temperature 98.1 F Pulse Rate 93 H 91 H Respiratory Rate 31 H Blood Pressure 130/69 123/77 Pulse Oximetry 96 92 L 94 L 09/05/18 14:00 09/05/18 15:00 09/05/18 15:20 Temperature Pulse Rate 91 H 90 79 Respiratory Rate 36 H 34 H 18 Blood Pressure 127/65 120/74 Pulse Oximetry 96 98 09/05/18 16:00 09/05/18 17:00 09/05/18 18:00 Temperature 98.0 F Pulse Rate 94 H 99 H 96 H Respiratory Rate 29 H 30 H 34 H Blood Pressure 125/61 140/71 162/65 H Pulse Oximetry 96 95 09/05/18 19:00 09/05/18 20:00 09/05/18 21:00 Temperature 98 F Pulse Rate 97 H 95 H 93 H Respiratory Rate 38 H 32 H 30 H Blood Pressure 137/91 H 142/79 H 115/69 Pulse Oximetry 97 96 97 09/05/18 22:00 09/05/18 22:30 09/05/18 23:00 Temperature Pulse Rate 88 90 Respiratory Rate 29 H 29 H Blood Pressure 128/71 105/69 Pulse Oximetry 97 95 94 L 09/06/18 00:00 09/06/18 01:00 09/06/18 02:00 Temperature 98.1 F Pulse Rate 93 H 94 H 87 Respiratory Rate 30 H 33 H 28 H Blood Pressure 114/64 165/74 H 131/81 Pulse Oximetry 99 94 L 92 L 09/06/18 03:00 09/06/18 03:30 09/06/18 04:00 Temperature 97.8 F Pulse Rate 84 77 74 Respiratory Rate 27 H 28 H 26 H Blood Pressure 124/71 134/62 Pulse Oximetry 94 L 93 L 09/06/18 05:00 09/06/18 06:00 09/06/18 07:00 Temperature Pulse Rate 72 77 84 Respiratory Rate 26 H 27 H 21 Blood Pressure 108/64 106/77 120/74 Pulse Oximetry 93 L 90 L 90 L 09/06/18 08:00 Temperature Pulse Rate 79 Respiratory Rate 25 H Blood Pressure 112/61 Pulse Oximetry 91 L Intake & Output 09/05/18 09/06/18 09/06/18 18:59 06:59 18:59 Intake Total 440 / 440 520 / 520 250 / 250 Output Total 600 / 600 400 / 400 Balance -160 / -160 120 / 120 250 / 250 Weight 108.5 kg Intake: IV 200 / 200 200 / 200 250 / 250 Unasyn Inj 3 GM In NS Inj 100 200 / 200 200 / 200 ML @ 200 mls/hr IV.SIG Q6H BRIANNA Rx#:[id number] Azithromycin Inj 500 MG In NS 250 / 250 Inj 250 ML @ 250 mls/hr IV.SIG Q24H BRIANNA Rx#:[id number] Oral 240 / 240 320 / 320 Output: Urine 600 / 600 400 / 400 Other: # Voids 4 # Incontinent Voids 3 Date of Last Bowel Movement 09/05/18 09/06/18 # Bowel Movements 1 # Incontinent Bowel Movements 1 Narrative: GENERAL: Extensive perioral lesions with the appearance of herpes as before.He appears confused however is able to tell me it is 2018. SKIN: Warm and dry. HEAD: Normocephalic. EYES: No scleral icterus. No injection or drainage. NECK: Supple, trachea midline. No JVD. CARDIOVASCULAR: Regular rate and rhythm without murmurs, gallops, or rubs. RESPIRATORY: Breath sounds equal bilaterally. Basal crackles markedly worsened today bilaterally. No accessory muscle use. GASTROINTESTINAL: Abdomen soft, non-tender, nondistended. MUSCULOSKELETAL: No cyanosis. +2 bilateral lower extremity edema as before. BACK: Nontender without obvious deformity. No CVA tenderness. - Urinary Catheter Management Indwelling Temp Sensing Catheter Cath placed during this visit: yes, but has since been removed by the nurse Reason for continuing: Decision to DC catheter Insertion date: 08/25/18 Insertion time: 14:20 Removal date: 08/29/18 Removal time: 12:30 Results - Labs CBC & Chem 7: 09/06/18 05:41 09/06/18 05:41 Laboratory Results - last 24 hr 11/29/18 11/29/18 11/29/18 05:52 11:47 17:05 WBC RBC Hgb Hct MCV MCH MCHC RDW Plt Count MPV Neut % (Auto) Lymph % (Auto) [place] % (Auto) Eos % (Auto) Baso % (Auto) Neut # (Auto) Lymph # (Auto) [place] # (Auto) Eos # (Auto) Baso # (Auto) WBC Differential Differential Comment Sodium Potassium Chloride Carbon Dioxide Anion Gap BUN Creatinine Estimated GFR POC Glucose 169 H 169 H Random Glucose Calcium Phosphorus Magnesium Ammonia Albumin Procalcitonin 0.44 H 09/05/18 09/06/18 09/06/18 17:23 00:00 05:40 WBC RBC Hgb Hct MCV MCH MCHC RDW Plt Count MPV Neut % (Auto) Lymph % (Auto) [place] % (Auto) Eos % (Auto) Baso % (Auto) Neut # (Auto) Lymph # (Auto) [place] # (Auto) Eos # (Auto) Baso # (Auto) WBC Differential Differential Comment Sodium Potassium Chloride Carbon Dioxide Anion Gap BUN Creatinine Estimated GFR POC Glucose 126 H 165 H Random Glucose Calcium Phosphorus Magnesium Ammonia 15 Albumin Procalcitonin 09/06/18 09/06/18 05:41 05:41 WBC 22.7 H RBC 3.11 L Hgb 10.0 L Hct 29.7 L MCV 95.4 MCH 32.0 MCHC 33.6 RDW 15.3 Plt Count 217 MPV 9.8 Neut % (Auto) 94.0 H Lymph % (Auto) 2.2 L [place] % (Auto) 3.0 Eos % (Auto) 0.2 Baso % (Auto) 0.6 Neut # (Auto) 21.3 H Lymph # (Auto) 0.5 L [place] # (Auto) 0.7 Eos # (Auto) 0.1 Baso # (Auto) 0.1 WBC Differential . Differential Comment Auto diff final Sodium 148 H Potassium 3.6 Chloride 115 H Carbon Dioxide 27.9 Anion Gap 5 BUN 35 H Creatinine 1.01 Estimated GFR 71 L POC Glucose Random Glucose 160 H Calcium 8.7 Phosphorus 3.0 Magnesium 2.3 Ammonia Albumin 1.8 L Procalcitonin - Imaging Impressions Chest CT 09/05/18 00:00 CONCLUSION: 1. 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 2. Right lower lobe cavitary mass. 3. Probably benign left adrenal lesion Assessment and Plan - Plan 83 Y/O male with acute respiratory failure secondary to pneumonia. His ICU course is somewhat prolonged. Has had issues with agitation at night and not wearing bipap. Pneumonia is persisting. His antibiotics were changed. He is showing some improvement. Pulmonology following. Continue to treat pneumonia per ID. He is very deconditioned and will likely need rehab. His 's goal is to drive [place] doctors. Other active issues include hypernatremia and sundowning. 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 C. pneumonia serology positive. DW ID. Azithromycin added to Zosyn. Patient previously completed 7 days of Rocephin. Encouraged the patient to use CPAP when he is sleeping. Continue breathing treatments = 09/04. Patient reports some difficulty swallowing however disagrees. Will order speech evaluation. =09/05. Chest CT with acute cavitary pneumonia. Continue treatment as per pulmonology. Appreciate assistance. = 09/06. Worsened respiratory status this morning. Worsening crackles bilaterally. Will check chest x-ray and stat ABG. suspect ICU induced delirium Multifactorial. CT brain with no acute findings. EEG with encephalopathy, no indication of seizure activity. Hypernatremia: = 09/04. Sodium improved 147 today. With some fluid overload will order Lasix. Chair tomorrow =09/05. Sodium 150 worsened. Appreciate nephrology assistance. IV fluids and diuretics as per nephrology. = 09/06. Sodium 148. Improved. Continue management as per nephrology. Appreciate assistance per Atrial fibrillation with rapid ventricular response currently rate controlled Elevated troponin History of essential hypertension Hyperlipidemia Lactic acidosis Trop 0.27 on admission, most recent 0.08, no longer trending Echo: EF 45%, RV enlargement/ dysfunction, PAP 38 mm Hg Continue metoprolol at 50 mg BID s/p Cardene drip = 09/04. With some fluid overload with bilateral lower extremity edema will order BNP and diurese. =09/05. BNP in the high 300s. 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 Will order echocardiogram for evaluation. = 09/06. Worsening respiratory status. Repeat BMP. Follow-up echocardiogram. Delirium, sundowning: //Suspected ICU induced delirium versus encephalopathy Improving. Delirium precautions (lights on/ shades up during the day, limit nighttime disruptions, frequent reorientation, use hearing aids) Seroquel at night as needed. = 09/04. concerned about confusion. Extensive affected perioral herpes. Will order EEG, CT brain. = EEG without epileptic features. Likely ICU induced delirium. Suspected perioral herpes We will order PCR herpes.pending Acute hyperglycemia Chronic steroid use Low TSH SSI TSH was 0.094, normal T4, T3 low-- would recheck in 4 weeks after critical illness has resolved On steroids as noted above Elevated creatinine question acute kidney injury, normalizing improved No urine eosinophils noted Renal ultrasound - bilateral renal cyst. Possible hemorrhagic left renal cyst Avoid nephrotoxic medication Monitor urine output Accurate I's and O's Prophylaxis -GI -pantoprazole -DVT -SCD/apixaban Discharge Plannin. Will likely need SNF.
[2018-09-06 09:27] LABS: ABG Base Excess 3.2 mmol/L (-2-2); ABG PCO2 50 mmHg (38-42); ABG PO2 83 mmHg (61-120)
--- NOTE | 2018-09-06 09:45 | XR ---
EXAM DATE: 09/06/2018 9:35 AM EST AGE/SEX: 83 years / Male INDICATIONS: CHF CLINICAL DATA: This is the patient's initial encounter. Patient reports that signs and symptoms have been present for 4 - 6 days and indicates a pain score of Nonresponsive. MEDICAL/SURGICAL HISTORY: Hypertension. Chronic obstructive pulmonary disease. A-FIB . lithot rypsy [place]: [facility] [place] 1[place]ING[place], 09/03/2018. [facility] [place]ST [place]/O [place]AST, 09/05/2018. . FINDINGS: There is free intraperitoneal air. The heart size is enlarged. There is diffuse mixed interstitial an d alveolar consolidation seen throughout the right lung. There are some patchy or consolidation at th e left base. CONCLUSION: Free intraperitoneal air. Cardiomegaly. Bilateral areas of consolidation being worse on the right. This information was relayed to Nathaniel, the patient's nurse by telephone. Electronically signed by: Ed Verma MD 09/06/2018 9:44 AM EST
[2018-09-06] MEDS ORDERED: fentaNYL Citrate Inj 250 MCG/5 ML Ampul ONE (10:42)
[2018-09-06] MEDS ORDERED: Bupivacaine/Epinephrine Inj 0.25% 50 ML Vial ONE (10:49)
[2018-09-06] MEDS ORDERED: PROTHROMBIN COMPLEX 500 UNIT IV.SIG ONE (11:30)
--- NOTE | 2018-09-06 11:59 | P.OP ---
- Preoperative Diagnosis (1) Perforated abdominal viscus (2) Cecal volvulus - Postoperative Diagnosis (1) Perforated abdominal viscus Procedure: dx lap,ex lap right hemicolectomy, primary anastomsis, jaiden Surgeon: Lul Richards MD Estimated blood loss (mL): 15 Pathology: none sent Operation and Findings: free air
[2018-09-06] MEDS ORDERED: Albumin Human 5% Inj 250 ML IV.SIG ONE (12:58)
--- NOTE | 2018-09-06 13:39 | P.PNNP ---
Subjective Interval history: Patient was seen, no distress. Patient was mumbling, was difficult to understand. Per nurse, patient was getting emergency laparotomy today due to free intraperitoneal air that showed on x-ray this morning. Na is 148 today, has improved. <Steven Limon - Last Filed: 09/06/18 13:49> Physical Exam Vital signs: Vital Signs 09/05/18 14:00 09/05/18 15:00 09/05/18 15:20 Temperature Pulse Rate 91 H 90 79 Respiratory Rate 36 H 34 H 18 Blood Pressure 127/65 120/74 Pulse Oximetry 96 98 09/05/18 16:00 09/05/18 17:00 09/05/18 18:00 Temperature 98.0 F Pulse Rate 94 H 99 H 96 H Respiratory Rate 29 H 30 H 34 H Blood Pressure 125/61 140/71 162/65 H Pulse Oximetry 96 95 09/05/18 19:00 09/05/18 20:00 09/05/18 21:00 Temperature 98 F Pulse Rate 97 H 95 H 93 H Respiratory Rate 38 H 32 H 30 H Blood Pressure 137/91 H 142/79 H 115/69 Pulse Oximetry 97 96 97 09/05/18 22:00 09/05/18 22:30 09/05/18 23:00 Temperature Pulse Rate 88 90 Respiratory Rate 29 H 29 H Blood Pressure 128/71 105/69 Pulse Oximetry 97 95 94 L 09/06/18 00:00 09/06/18 01:00 09/06/18 02:00 Temperature 98.1 F Pulse Rate 93 H 94 H 87 Respiratory Rate 30 H 33 H 28 H Blood Pressure 114/64 165/74 H 131/81 Pulse Oximetry 99 94 L 92 L 09/06/18 03:00 09/06/18 03:30 09/06/18 04:00 Temperature 97.8 F Pulse Rate 84 77 74 Respiratory Rate 27 H 28 H 26 H Blood Pressure 124/71 134/62 Pulse Oximetry 94 L 93 L 09/06/18 05:00 09/06/18 06:00 09/06/18 07:00 Temperature Pulse Rate 72 77 84 Respiratory Rate 26 H 27 H 21 Blood Pressure 108/64 106/77 120/74 Pulse Oximetry 93 L 90 L 90 L 09/06/18 08:00 09/06/18 08:42 09/06/18 09:00 Temperature 97.9 F Pulse Rate 79 83 Respiratory Rate 24 21 Blood Pressure 112/61 146/79 H 160/67 H Pulse Oximetry 91 L 97 97 09/06/18 09:28 09/06/18 10:00 Temperature 97 F L Pulse Rate 85 80 Respiratory Rate 17 27 H Blood Pressure 141/89 H Pulse Oximetry 95 Intake & Output 09/05/18 09/06/18 09/06/18 18:59 06:59 18:59 Intake Total 440 / 440 520 / 520 250 / 250 Output Total 600 / 600 400 / 400 Balance -160 / -160 120 / 120 250 / 250 Weight 108.5 kg Intake: IV 200 / 200 200 / 200 250 / 250 Unasyn Inj 3 GM In NS Inj 100 200 / 200 200 / 200 ML @ 200 mls/hr IV.SIG Q6H [facility] Rx#:[id number] Azithromycin Inj 500 MG In NS 250 / 250 Inj 250 ML @ 250 mls/hr IV.SIG Q24H [facility] Rx#:[id number] Oral 240 / 240 320 / 320 Output: Urine 600 / 600 400 / 400 Other: # Voids 4 # Incontinent Voids 3 Date of Last Bowel Movement 09/05/18 09/06/18 09/05/18 # Bowel Movements 1 # Incontinent Bowel Movements 1 - Constitutional mild distress - Routine HEENT Exam Head: Present: normocephalic Eye: Present: EOMI ENT: Present: mucous membranes moist Comments: Crusty vesicular lesions around the lips. - Routine Neck Exam Present: trachea midline. Absent: tracheal deviation - Routine Respiratory Exam Present: crackles. Absent: accessory muscle use, respiratory distress - Routine Cardiovascular Exam Present: RRR - Routine Abdominal Exam Present: soft, normoactive bowel sounds - Routine Extremities Exam Present: edema - Routine Psychiatric Exam Present: unable to assess - Urinary Catheter Management Indwelling Temp Sensing Catheter Cath placed during this visit: yes, but has since been removed by the nurse Reason for continuing: Decision to DC catheter Insertion date: 08/25/18 Insertion time: 14:20 Removal date: 08/29/18 Removal time: 12:30 <Steven Limon - Last Filed: 09/06/18 13:49> Vital signs: Vital Signs 09/05/18 22:00 09/05/18 22:30 09/05/18 23:00 Temperature Pulse Rate 88 90 Respiratory Rate 29 H 29 H Blood Pressure 128/71 105/69 Pulse Oximetry 97 95 94 L 09/06/18 00:00 09/06/18 01:00 09/06/18 02:00 Temperature 98.1 F Pulse Rate 93 H 94 H 87 Respiratory Rate 30 H 33 H 28 H Blood Pressure 114/64 165/74 H 131/81 Pulse Oximetry 99 94 L 92 L 09/06/18 03:00 09/06/18 03:30 09/06/18 04:00 Temperature 97.8 F Pulse Rate 84 77 74 Respiratory Rate 27 H 28 H 26 H Blood Pressure 124/71 134/62 Pulse Oximetry 94 L 93 L 09/06/18 05:00 09/06/18 06:00 09/06/18 07:00 Temperature Pulse Rate 72 77 84 Respiratory Rate 26 H 27 H 21 Blood Pressure 108/64 106/77 120/74 Pulse Oximetry 93 L 90 L 90 L 09/06/18 08:00 09/06/18 08:42 09/06/18 09:00 Temperature 97.9 F Pulse Rate 79 83 Respiratory Rate 24 21 Blood Pressure 112/61 146/79 H 160/67 H Pulse Oximetry 91 L 97 97 09/06/18 09:28 09/06/18 10:00 09/06/18 11:00 Temperature 97 F L 96.8 F L Pulse Rate 85 80 76 Respiratory Rate 17 27 H 27 H Blood Pressure 141/89 H 108/64 Pulse Oximetry 95 95 09/06/18 14:34 09/06/18 14:37 09/06/18 14:45 Temperature 97.4 F L Pulse Rate 58 L 78 68 Respiratory Rate 20 18 Blood Pressure 92/69 L 95/61 L Pulse Oximetry 95 96 94 L 09/06/18 14:49 09/06/18 14:50 09/06/18 14:51 Temperature Pulse Rate 71 72 66 Respiratory Rate 18 15 16 Blood Pressure 86/57 L 83/62 L Pulse Oximetry 100 100 09/06/18 14:56 09/06/18 15:00 09/06/18 15:02 Temperature Pulse Rate 69 63 68 Respiratory Rate 16 19 18 Blood Pressure 109/69 89/62 L 93/61 L Pulse Oximetry 99 99 100 09/06/18 15:05 09/06/18 15:10 09/06/18 15:15 Temperature Pulse Rate 71 65 62 Respiratory Rate 19 19 21 Blood Pressure 95/60 L 135/89 152/84 H Pulse Oximetry 100 100 100 09/06/18 15:20 09/06/18 15:30 09/06/18 15:45 Temperature 97.4 F L Pulse Rate 63 61 64 Respiratory Rate 17 21 21 Blood Pressure 142/86 H 139/73 149/71 H Pulse Oximetry 100 100 100 09/06/18 16:00 09/06/18 16:16 09/06/18 17:00 Temperature 97.3 F L Pulse Rate 73 73 Respiratory Rate 18 25 H Blood Pressure Pulse Oximetry 100 100 97 09/06/18 18:00 09/06/18 19:40 09/06/18 20:24 Temperature 97.7 F Pulse Rate 80 78 Respiratory Rate 25 H 26 H Blood Pressure Pulse Oximetry 93 L 96 Intake & Output 09/06/18 09/06/18 09/07/18 06:59 18:59 06:59 Intake Total 520 / 520 3340 / 3340 1015 / 1015 Output Total 400 / 400 565 / 565 Balance 120 / 120 2775 / 2775 1015 / 1015 Weight 108.5 kg Intake: IV 200 / 200 1840 / 1840 1015 / 1015 D5W Inj 1,000 ML @ 75 mls/hr IV 950 / 950 .CONT .[id number] [facility] Rx#:[id number] Neosynephrine Inj 40 MG In D5W 120 / 120 Inj 496 ML @ 40 MCG/MIN 30 mls/ hr IV.CONT TITRATE PRN Rx#: [id number] Diprivan 1000 mg/100 ml Inj 1, 20 / 20 000 mg In 100 ml @ 5 MCG/KG/MIN 3.255 mls/hr IV.CONT TITRATE PRN Rx#:[id number] Unasyn Inj 3 GM In NS Inj 100 200 / 200 100 / 100 ML @ 200 mls/hr IV.SIG Q6H [facility] Rx#:[id number] Azithromycin Inj 500 MG In NS 250 / 250 Inj 250 ML @ 250 mls/hr IV.SIG Q24H [facility] Rx#:[id number] Diflucan 400 mg Premix Bag 200 200 / 200 ML @ 0 mls/hr IV.SIG .STK-MED ONE Rx#:[id number] LR 1000 mL Inj 500 ML @ 500 mls 500 / 500 /hr IV.SIG .Q1H ONE Rx#: [id number] Zosyn 4.5 GM Premix 4.5 gm In 100 / 100 100 ml @ 200 mls/hr IV.SIG Q6H [facility] Rx#:[id number] Vancomycin Inj 1,500 MG In NS 515 / 515 Inj 500 ML @ 250 mls/hr IV.SIG Q18H [facility] Rx#:[id number] Flagyl 500 MG Inj 100 ML @ 100 100 / 100 mls/hr IV.SIG Q6H [facility] Rx#: [id number] Oral 320 / 320 Anesthesia Amount 1500 / 1500 Output: Urine 400 / 400 Estimated Blood Loss 100 / 100 Urine Amount (Catheter) 450 / 450 Indwelling Urethral Catheter 450 / 450 Wound Drainage # 1 Left Lower Abdomen Other: # Incontinent Voids 3 Date of Last Bowel Movement 09/06/18 09/05/18 # Incontinent Bowel Movements 1 - Urinary Catheter Management Indwelling Temp Sensing Catheter Cath placed during this visit: no <Wang Hunt - Last Filed: 09/06/18 21:51> Assessment and Plan - Assessment (1) Hypernatremia Code(s): E87.0 - Hyperosmolality and hypernatremia Status: Acute Plan: Likely due to patient receiving hypertonic fluids (0.9% NS), and because of confusion he has not had the capacity for asking for water. He therefore has free water deficit. Sodium 148. Improved. Continue D5W. Avoid nephrotoxic agents. Monitor urine output. Monitor for hyperglycemia, if patient develops hyperglycemia, osmotic diuresis will worsen hypernatremia. (2) Leukocytosis Code(s): D72.829 - Elevated white blood cell count, unspecified Status: Acute Qualifiers: Leukocytosis type: unspecified Qualified Code(s): D72.829 - Elevated white blood cell count, unspecified Plan: Has been diagnosed with pneumonia. Also is on steroids. (3) Pneumonia Code(s): J18.9 - Pneumonia, unspecified organism Status: Acute Qualifiers: Pneumonia type: due to unspecified organism Laterality: bilateral Lung location: unspecified part of lung Qualified Code(s): J18.9 - Pneumonia, unspecified organism Plan: Continue antibiotics, ID following. <Steven Limon - Last Filed: 09/06/18 13:49> - Assessment (1) Hypernatremia Code(s): E87.0 - Hyperosmolality and hypernatremia Status: Acute (2) Leukocytosis Code(s): D72.829 - Elevated white blood cell count, unspecified Status: Acute Qualifiers: Leukocytosis type: unspecified Qualified Code(s): D72.829 - Elevated white blood cell count, unspecified (3) Pneumonia Code(s): J18.9 - Pneumonia, unspecified organism Status: Acute Qualifiers: Pneumonia type: due to unspecified organism Laterality: bilateral Lung location: unspecified part of lung Qualified Code(s): J18.9 - Pneumonia, unspecified organism - Attending Attestation patient was seen and examined. He is on D5W for hypernatremia. He underwent emergency surgery for perforated viscus, volvulus. <Wang Hunt - Last Filed: 09/06/18 21:51>
[2018-09-06] MEDS ORDERED: Propofol 1000 mg/100 ml Inj 1,000 MG/100 ML BOTTLE ONE (14:40)
--- NOTE | 2018-09-06 14:42 | P.PNCC ---
Subjective Subjective Remarks/Hospital Course: This is an 83-year-old male. Date of admission 08/25/2018. Past medical includes atrial fibrillation with history of cardioversion, chronic apixaban use, hypertension, hyperlipidemia, trigeminal neuralgia/hard of hearing : Bilateral hearing aids. For the past 4 days, patient been increasing short of breath increased malaise. Denies any sick contacts or recent travels. Unknown influenza status. Patient is to [facility] with worsening shortness of breath. Complains of pleuritic and musculoskeletal chest pain. Patient also has a prior history of tobacco abuse times 50 years quit 15 years ago. Patient called EMS for evaluation due to acute shortness of breath. Upon arrival, patient was noted to be in a rapid heart rate in the 150s. Patient was given acute bronchodilator therapy and started on a lidocaine drip for possible V. tach. Patient was transported to [facility] for further evaluation treatment. Upon arrival, patient was noted to be in A. fib with RVR. Chest x-ray revealed bilateral infiltrates right greater than left. Patient was placed on BiPAP therapy with some improvement. Patient received ceftriaxone and azithromycin. 3 L normal saline. Patient remained somewhat hypotensive. Patient a lactate of 5.1. Troponin 0 0.27. Patient was transported to [facility]. On arrival, patient increasingly short of breath. Required intubation with central line placement and arterial line placement. SUBJECTIVE: 08/26: Currently resting in bed intubated requiring mechanical ventilation. Arousable and does follow commands but heart rate much better controlled rate. No acute findings overnight. Leukocytosis slightly worsened. Potassium replaced currently. Arousable and does follow commands. at bedside and updated Wilma. 08/27: Patient on low-dose (2 mcg) levo overnight, off since this morning. Low urine output over the past 24 hours. HR well-controlled in 70s-80s. 08/28: Patient tolerated PST yesterday afternoon, placed back on AC overnight to rest. Urine output improved with lasix/ Chavez was noted to be clogged with sediment and replaced. No new issues. 08/29: Extubated yesterday, on bipap through the afternoon/ evening (patient is on nocturnal CPAP at home). BP persistently elevated, now on cardene gtt. 08/30: On BiPAP overnight. Currently on facemask O2. Sitting up in chair, not in any acute distress. 08/31: Critical care reconsulted this morning due to free air noted under the diaphragm on routine chest x-ray. When I evaluated the patient he was resting in bed on nasal cannula. No hypotension overnight. He did have a BM yesterday he has been having vague abdominal discomfort. He appears more lethargic and delirious yesterday according to his . Patient was drowsy but easily arousable however appeared encephalopathic. He did not appear to be in any acute distress however on examination of his abdomen did grimace some guarding. He did receive Eliquis this morning. On review of CT done on 09/05 patient appears to have free intraperitoneal air. This was discussed with Dr. Richards. Plan was made for exploratory laparotomy Maurice. I did order K Centra for Eliquis reversal per discussion with Dr. Richards. Also spoke with patient's regarding concern regarding perforated viscus and need for emergency surgery she voiced understanding. Patient is on Unasyn and being followed by ID. Ordered normal saline IV fluids and made patient n.p.o. Objective Vital Signs / I&O: Vital Signs 09/05/18 15:00 09/05/18 15:20 09/05/18 16:00 Temperature 98.0 F Pulse Rate 90 79 94 H Respiratory Rate 34 H 18 29 H Blood Pressure 120/74 125/61 Pulse Oximetry 98 09/05/18 17:00 09/05/18 18:00 09/05/18 19:00 Temperature Pulse Rate 99 H 96 H 97 H Respiratory Rate 30 H 34 H 38 H Blood Pressure 140/71 162/65 H 137/91 H Pulse Oximetry 96 95 97 09/05/18 20:00 09/05/18 21:00 09/05/18 22:00 Temperature 98 F Pulse Rate 95 H 93 H 88 Respiratory Rate 32 H 30 H 29 H Blood Pressure 142/79 H 115/69 128/71 Pulse Oximetry 96 97 97 09/05/18 22:30 09/05/18 23:00 09/06/18 00:00 Temperature 98.1 F Pulse Rate 90 93 H Respiratory Rate 29 H 30 H Blood Pressure 105/69 114/64 Pulse Oximetry 95 94 L 99 09/06/18 01:00 09/06/18 02:00 09/06/18 03:00 Temperature Pulse Rate 94 H 87 84 Respiratory Rate 33 H 28 H 27 H Blood Pressure 165/74 H 131/81 124/71 Pulse Oximetry 94 L 92 L 94 L 09/06/18 03:30 09/06/18 04:00 09/06/18 05:00 Temperature 97.8 F Pulse Rate 77 74 72 Respiratory Rate 28 H 26 H 26 H Blood Pressure 134/62 108/64 Pulse Oximetry 93 L 93 L 09/06/18 06:00 09/06/18 07:00 09/06/18 08:00 Temperature Pulse Rate 77 84 79 Respiratory Rate 27 H 21 24 Blood Pressure 106/77 120/74 112/61 Pulse Oximetry 90 L 90 L 91 L 09/06/18 08:42 09/06/18 09:00 09/06/18 09:28 Temperature 97.9 F Pulse Rate 83 85 Respiratory Rate 21 17 Blood Pressure 146/79 H 160/67 H Pulse Oximetry 97 97 09/06/18 10:00 Temperature 97 F L Pulse Rate 80 Respiratory Rate 27 H Blood Pressure 141/89 H Pulse Oximetry 95 Intake & Output 09/05/18 09/06/18 09/06/18 18:59 06:59 18:59 Intake Total 440 / 440 520 / 520 250 / 250 Output Total 600 / 600 400 / 400 Balance -160 / -160 120 / 120 250 / 250 Weight 108.5 kg Intake: IV 200 / 200 200 / 200 250 / 250 Unasyn Inj 3 GM In NS Inj 100 200 / 200 200 / 200 ML @ 200 mls/hr IV.SIG Q6H [facility] Rx#:[id number] Azithromycin Inj 500 MG In NS 250 / 250 Inj 250 ML @ 250 mls/hr IV.SIG Q24H [facility] Rx#:[id number] Oral 240 / 240 320 / 320 Output: Urine 600 / 600 400 / 400 Other: # Voids 4 # Incontinent Voids 3 Date of Last Bowel Movement 09/05/18 09/06/18 09/05/18 # Bowel Movements 1 # Incontinent Bowel Movements 1 Result Diagrams: 09/06/18 05:41 09/06/18 05:41 Imaging: Impressions Abdomen/Pelvis CT 09/05/18 00:00 CONCLUSION: 1. Cavitary nodule right lower lobe measuring up to 2.5 cm in diameter. Differential diagnosis includes infection and neoplasm. Consider further evaluation with chest CT. Basilar airspace disease and small effusions, right greater than left. 2. Mild ascites and anasarca. Diffuse ileus, especially colonic. 3. 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 Numerous a definitive masses in the kidneys, worse on the left side, probably complex cysts. Chest CT 09/05/18 00:00 CONCLUSION: 1. 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 2. Right lower lobe cavitary mass. 3. Probably benign left adrenal lesion Head CT 09/05/18 00:00 CONCLUSION: 1. No acute intracranial abnormalities. . Chest X-Ray 09/06/18 00:00 CONCLUSION: Free intraperitoneal air. Cardiomegaly. Bilateral areas of consolidation being worse on the right. This information was relayed to Nathaniel, the patient's nurse by telephone. Objective Remarks: GENERAL: Well-appearing, lying in bed in no acute distress SKIN: Warm and dry. HEENT: NCAT, PERRL. Perioral herpetic lesions noted NECK: Trachea midline. No JVD. Left IJ CVL is clean dry and intact CARDIOVASCULAR: Irregular, regular rate RESPIRATORY: Diminished breath sounds at bases bilaterally, currently on nasal cannula O2, no respiratory distress, scattered rhonchi bilaterally GASTROINTESTINAL: Abdomen soft, vague tenderness all over with minimal guarding , bowel sounds not appreciated. MUSCULOSKELETAL: 2+ pitting edema in all extremities, improving NEUROLOGICAL: Drowsy, easily arousable. Encephalopathic, moving both upper extremities. Assessment and Plan - Problem List (1) Acute respiratory failure with hypoxia and hypercapnia Code(s): J96.01 - Acute respiratory failure with hypoxia; J96.02 - Acute respiratory failure with hypercapnia Status: Acute (2) Hyponatremia Code(s): E87.1 - Hypo-osmolality and hyponatremia Status: Acute (3) Lactic acidosis Code(s): E87.2 - Acidosis Status: Acute (4) Atrial fibrillation with rapid ventricular response Code(s): I48.91 - Unspecified atrial fibrillation Status: Acute (5) Acute kidney injury Code(s): N17.9 - Acute kidney failure, unspecified Status: Acute (6) Chronic steroid use Status: Chronic (7) Hypertension Code(s): I10 - Essential (primary) hypertension Status: Chronic (8) Hyperlipidemia Code(s): E78.5 - Hyperlipidemia, unspecified Status: Chronic (9) Hard of hearing Code(s): H91.90 - Unspecified hearing loss, unspecified ear Status: Chronic (10) Trigeminal neuralgia Code(s): G50.0 - Trigeminal neuralgia Status: Chronic (11) Chronic anticoagulation Code(s): Z79.01 - intermediate frame tender (current) use of anticoagulants Status: Chronic (12) Leukocytosis Code(s): D72.829 - Elevated white blood cell count, unspecified Status: Acute (13) Elevated troponin Code(s): R74.8 - Abnormal levels of other serum enzymes Status: Acute (14) Hypoalbuminemia Code(s): E88.09 - Other disorders of plasma-protein metabolism, not elsewhere classified Status: Acute - Assessment and Plan Plan: Neuro/Psych: Hard of hearing Acetaminophen 650 mg by tube every 6 hours as needed fever Delirium precautions (lights on/ shades up during the day, limit nighttime disruptions, frequent reorientation, use hearing aids) CV: Atrial fibrillation with rapid ventricular response currently rate controlled Elevated troponin History of essential hypertension Hyperlipidemia Lactic acidosis Trop 0.27 on admission, most recent 0.08, no longer trending Echo: EF 45%, RV enlargement/ dysfunction, PAP 38 mm Hg On beta-tristian Wean cardene gtt as able Was being diuresed. 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 Richards who is taking patient for emergency exploratory laparotomy. Pantoprazole for GI prophylaxis Docusate sodium/senna 1 tablet twice daily for bowel regimen : Strict intake output, monitor and replete elect lites, follow BUN/creatinine. May have to hold off on diuretics due to perforated viscus. Started IV fluids Endo: Acute hyperglycemia Chronic steroid use Low TSH SSI TSH was 0.094, normal T4, T3 low-- would recheck in 4 weeks after critical illness has resolved On steroids as noted above Renal: WESLEY BID lasix dosing No urine eosinophils noted Renal ultrasound - bilateral renal cyst. Possible hemorrhagic left renal cyst Avoid nephrotoxic medication Monitor urine output Accurate I's and O's Heme: Monitor CBC. Eliquis will be held. Ordered Kcentra for Eliquis reversal prior to Elap 09/06 ID: Community acquired pneumonia Perforated viscus Blood cultures from 08/25 grew Haemophilus influenza sensitive to penicillins/ cephalosporins, s/p ceftriaxone Repeat blood cultures sent on 08/27 negative thus far Sputum and urine cultures no growth to date Flu and MRSA swabs negative Legionella and pneumococcus negative ID following for antibiotic management. On IV Unasyn. Going to OR for exploratory laparotomy for perforated viscus on 09/06 which was noted on routine chest x-ray though CT chest done on 09/05 appears to show free intraperitoneal air on my review MSK: Elevated BMI PT evaluate and treat Weight loss encouraged FEN: Hypokalemia ICU electrolyte protocol Prophylaxis -GI -pantoprazole -DVT -SCD/apixaban will be held for exploratory laparotomy. Condition critical Time spent on critical care excluding procedures 45 minutes (7) Hypertension Qualifiers: Hypertension type: essential hypertension Qualified Code(s): I10 - Essential (primary) hypertension (8) Hyperlipidemia Qualifiers: Hyperlipidemia type: unspecified Qualified Code(s): E78.5 - Hyperlipidemia, unspecified (9) Hard of hearing Qualifiers: Hearing loss type: unspecified Laterality: bilateral Qualified Code(s): H91.93 - Unspecified hearing loss, bilateral (12) Leukocytosis Qualifiers: Leukocytosis type: unspecified Qualified Code(s): D72.829 - Elevated white blood cell count, unspecified
[2018-09-06] MEDS ORDERED: Phenylephrine/NS 1000 MCG/10ML Syringe ONE (14:50)
[2018-09-06] MEDS ORDERED: Phenylephrine Inj 40 MG in Dextrose 5% in Water Inj 496 ML IV.CONT PRN ×2 (15:15)
[2018-09-06] MEDS ORDERED: Propofol 1000 mg/100 ml Inj 1,000 MG/100 ML BOTTLE IV.CONT PRN (15:19)
--- NOTE | 2018-09-06 15:28 | P.PNID ---
Subjective Remarks: Patient was taken to surgery after there was free air noted under the diaphragm on chest x-ray. Seen in recovery room. He underwent right hemicolectomy for perforated viscus. Current temperature 97 degrees. Warming blanket in place. Blood pressure is low. He has been started on norepinephrine. Intubated on the ventilator. Intubated for surgery. Nonresponsive. White blood cell count is still high. Mycoplasma IgG is positive. Mycoplasma IgM is negative. Chlamydia IgG positive. Legionella and strep antigen were negative. 83-year-old white male was admitted to the hospital on 08/25/2018. Patient presented with shortness of breath. Chest x-ray showed bilateral infiltrates and white blood cell count was elevated. 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 History of lithotripsy History of arthroplasty of the knee History of trigeminal neuralgia. Allergies/Adverse Reactions: Allergies amiodarone Allergy (Intermediate, Verified 11/15/17 10:35) BLACK LUNGS atorvastatin [From Lipitor] Adverse Reaction (Unknown, Verified 09/05/18 15:05) Joint Pain fluvastatin [From Lescol] Adverse Reaction (Unknown, Verified 09/05/18 15:05) UNKNOWN Sulfa (Sulfonamide Antibiotics) Adverse Reaction (Verified 09/05/18 15:05) Abdominal Pain Objective Vital Signs 09/05/18 15:20 09/05/18 16:00 09/05/18 17:00 Temperature 98.0 F Pulse Rate 79 94 H 99 H Respiratory Rate 18 29 H 30 H Blood Pressure 125/61 140/71 Pulse Oximetry 96 09/05/18 18:00 09/05/18 19:00 09/05/18 20:00 Temperature 98 F Pulse Rate 96 H 97 H 95 H Respiratory Rate 34 H 38 H 32 H Blood Pressure 162/65 H 137/91 H 142/79 H Pulse Oximetry 95 97 96 09/05/18 21:00 09/05/18 22:00 09/05/18 22:30 Temperature Pulse Rate 93 H 88 Respiratory Rate 30 H 29 H Blood Pressure 115/69 128/71 Pulse Oximetry 97 97 95 09/05/18 23:00 09/06/18 00:00 09/06/18 01:00 Temperature 98.1 F Pulse Rate 90 93 H 94 H Respiratory Rate 29 H 30 H 33 H Blood Pressure 105/69 114/64 165/74 H Pulse Oximetry 94 L 99 94 L 09/06/18 02:00 09/06/18 03:00 09/06/18 03:30 Temperature Pulse Rate 87 84 77 Respiratory Rate 28 H 27 H 28 H Blood Pressure 131/81 124/71 Pulse Oximetry 92 L 94 L 09/06/18 04:00 09/06/18 05:00 09/06/18 06:00 Temperature 97.8 F Pulse Rate 74 72 77 Respiratory Rate 26 H 26 H 27 H Blood Pressure 134/62 108/64 106/77 Pulse Oximetry 93 L 93 L 90 L 09/06/18 07:00 09/06/18 08:00 09/06/18 08:42 Temperature 97.9 F Pulse Rate 84 79 Respiratory Rate 21 24 Blood Pressure 120/74 112/61 146/79 H Pulse Oximetry 90 L 91 L 97 09/06/18 09:00 09/06/18 09:28 09/06/18 10:00 Temperature 97 F L Pulse Rate 83 85 80 Respiratory Rate 21 17 27 H Blood Pressure 160/67 H 141/89 H Pulse Oximetry 97 95 09/06/18 14:45 09/06/18 14:50 Temperature Pulse Rate 72 Respiratory Rate 16 15 Blood Pressure Pulse Oximetry 98 Intake & Output 09/05/18 09/06/18 09/06/18 18:59 06:59 18:59 Intake Total 440 / 440 520 / 520 1750 / 1750 Output Total 600 / 600 400 / 400 350 / 350 Balance -160 / -160 120 / 120 1400 / 1400 Weight 108.5 kg Intake: IV 200 / 200 200 / 200 250 / 250 Unasyn Inj 3 GM In NS Inj 100 200 / 200 200 / 200 ML @ 200 mls/hr IV.SIG Q6H [facility] Rx#:[id number] Azithromycin Inj 500 MG In NS 250 / 250 Inj 250 ML @ 250 mls/hr IV.SIG Q24H [facility] Rx#:[id number] Oral 240 / 240 320 / 320 Anesthesia Amount 1500 / 1500 Output: Urine 600 / 600 400 / 400 Estimated Blood Loss 100 / 100 Urine Amount (Catheter) 250 / 250 Indwelling Urethral Catheter 250 / 250 Other: # Voids 4 # Incontinent Voids 3 Date of Last Bowel Movement 09/05/18 09/06/18 09/05/18 # Bowel Movements 1 # Incontinent Bowel Movements 1 Lab - Hematology Results 09/05/18 09/06/18 05:52 05:41 WBC 33.0 H 22.7 H RBC 3.59 L 3.11 L Hgb 11.2 L 10.0 L Hct 34.8 L 29.7 L MCV 96.8 95.4 MCH 31.1 32.0 MCHC 32.1 33.6 RDW 15.2 15.3 Plt Count 223 217 MPV 9.7 9.8 Prelim Diff (Auto) Slide review pending Neut % (Auto) 96.0 H 94.0 H Lymph % (Auto) 1.1 L 2.2 L [place] % (Auto) 2.7 3.0 Eos % (Auto) 0.0 0.2 Baso % (Auto) 0.2 0.6 Neut # (Auto) 31.7 H 21.3 H Lymph # (Auto) 0.3 L 0.5 L [place] # (Auto) 0.9 0.7 Eos # (Auto) 0.0 0.1 Baso # (Auto) 0.1 0.1 WBC Differential Manual diff final . Seg Neuts % (Manual) 99 H Monocytes % (Manual) 1 Abs Neuts (Manual) 32.7 H Differential Comment . Auto diff final Platelet Estimate Normal Platelet Morphology Normal Lab - Chemistry Results 09/04/18 09/04/18 09/05/18 16:56 17:03 01:45 Sodium Potassium Chloride Carbon Dioxide Anion Gap BUN Creatinine Estimated GFR POC Glucose 166 H 126 H Random Glucose Calcium Phosphorus Magnesium Total Bilirubin Direct Bilirubin Indirect Bilirubin AST ALT Alkaline Phosphatase Ammonia B-Natriuretic Peptide 370 H Total Protein Albumin Procalcitonin 09/05/18 09/05/18 09/05/18 05:52 05:52 11:47 Sodium 150 H Potassium 3.3 L Chloride 115 H Carbon Dioxide 26.0 Anion Gap 9 BUN 39 H Creatinine 0.97 Estimated GFR 74 L POC Glucose 169 H Random Glucose 116 H Calcium 8.9 Phosphorus 2.5 Magnesium 2.4 Total Bilirubin 1.2 H Direct Bilirubin 0.5 H Indirect Bilirubin 0.7 AST 23 ALT 26 Alkaline Phosphatase 68 Ammonia B-Natriuretic Peptide Total Protein 5.2 L D Albumin 1.9 L Procalcitonin 0.44 H 09/05/18 09/05/18 09/06/18 17:05 17:23 00:00 Sodium Potassium Chloride Carbon Dioxide Anion Gap BUN Creatinine Estimated GFR POC Glucose 169 H 126 H Random Glucose Calcium Phosphorus Magnesium Total Bilirubin Direct Bilirubin Indirect Bilirubin AST ALT Alkaline Phosphatase Ammonia 15 B-Natriuretic Peptide Total Protein Albumin Procalcitonin 09/06/18 09/06/18 09/06/18 05:40 05:41 11:10 Sodium 148 H Potassium 3.6 Chloride 115 H Carbon Dioxide 27.9 Anion Gap 5 BUN 35 H Creatinine 1.01 Estimated GFR 71 L POC Glucose 165 H 151 H Random Glucose 160 H Calcium 8.7 Phosphorus 3.0 Magnesium 2.3 Total Bilirubin Direct Bilirubin Indirect Bilirubin AST ALT Alkaline Phosphatase Ammonia B-Natriuretic Peptide Total Protein Albumin 1.8 L Procalcitonin Imaging: ITS Impressions Abdomen/Bladder Ultrasound 08/25/18 00:00 CONCLUSION: 1. No evidence of hydronephrosis. 2. Bilateral renal cysts, mostly simple, with one cyst demonstrating homogeneous low level echoes, located in the midpole the left kidney and measuring 4 cm. Venous Doppler Study 08/25/18 00:00 CONCLUSION: 1. The study is negative for bilateral lower extremity deep venous thrombosis. Abdomen/Pelvis CT 09/05/18 00:00 CONCLUSION: 1. Cavitary nodule right lower lobe measuring up to 2.5 cm in diameter. Differential diagnosis includes infection and neoplasm. Consider further evaluation with chest CT. Basilar airspace disease and small effusions, right greater than left. 2. Mild ascites and anasarca. Diffuse ileus, especially colonic. 3. 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 Numerous a definitive masses in the kidneys, worse on the left side, probably complex cysts. Chest CT 09/05/18 00:00 CONCLUSION: 1. 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 2. Right lower lobe cavitary mass. 3. Probably benign left adrenal lesion Head CT 09/05/18 00:00 CONCLUSION: 1. No acute intracranial abnormalities. . Chest X-Ray 09/06/18 00:00 CONCLUSION: Free intraperitoneal air. Cardiomegaly. Bilateral areas of consolidation being worse on the right. This information was relayed to Nathaniel, the patient's nurse by telephone. Physical Exam: PHYSICAL EXAMINATION: GENERAL: Patient is unresponsive. HEENT: Head is atraumatic. No icterus. Oropharynx intubated. Dry crusted lesions at the upper and lower lip. NECK: No adenopathy. LUNGS: Coarse breath sounds with bilateral. HEART: Irregular S1, S2. No murmur audible. ABDOMEN: Obese, soft, sanguinous drainage in DAVID tube. EXTREMITIES: No clubbing, cyanosis, 1+ nonpitting edema. SKIN: No rash. ecchymoses at hands and legs. NEUROLOGIC: Unable to assess. PSYCHIATRIC: Unable to assess. Assessment and Plan - Plan IMPRESSION: Perforated viscus. Status post right hemicolectomy today. Pneumonia. Probable community-acquired. Possible cause of blood culture positive with Haemophilus. Cavitary nodule noted in the right lower lung. ? Etiology. 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 Altered mental status. Leukocytosis. Crusted lesion on the lip is very likely herpetic lesions. RECOMMENDATIONS: Change Unasyn to Zosyn. Add vancomycin. Add Flagyl. Continue azithromycin. Continue topical acyclovir. Monitor white blood cell count. Monitor clinical status. Monitor temperature. D/W RN.
[2018-09-06] MEDS ORDERED: Vancomycin Consult Pharmacy 1 EACH OTHER SCH (15:30)
[2018-09-06] MEDS: Azithromycin Inj 500 MG in Sodium Chlor 0.9% Inj 250 ML IV.SIG SCH (16:58)
[2018-09-06] MEDS: Piperacil/Tazo 4.5 GM Premix 4.5 GM/100 ML BAG IV.SIG SCH ×2 (17:18→23:10)
[2018-09-06 17:22] LABS: HSV 1 PCR Positive (Negative); HSV 2 PCR Negative (Negative); Herpes Simplex DNA PCR Source LIPS
--- NOTE | 2018-09-06 18:13 | P.PN ---
Subjective Interval history: Was found to have a perforated Viscus with free intraperitoneal air. went for Exploratory Lap and colon resection with anastomosis . Now extubated and back on O2 N/C 5L Awake . Physical Exam Vital signs: Vital Signs 09/05/18 19:00 09/05/18 20:00 09/05/18 21:00 Temperature 98 F Pulse Rate 97 H 95 H 93 H Respiratory Rate 38 H 32 H 30 H Blood Pressure 137/91 H 142/79 H 115/69 Pulse Oximetry 97 96 97 09/05/18 22:00 09/05/18 22:30 09/05/18 23:00 Temperature Pulse Rate 88 90 Respiratory Rate 29 H 29 H Blood Pressure 128/71 105/69 Pulse Oximetry 97 95 94 L 09/06/18 00:00 09/06/18 01:00 09/06/18 02:00 Temperature 98.1 F Pulse Rate 93 H 94 H 87 Respiratory Rate 30 H 33 H 28 H Blood Pressure 114/64 165/74 H 131/81 Pulse Oximetry 99 94 L 92 L 09/06/18 03:00 09/06/18 03:30 09/06/18 04:00 Temperature 97.8 F Pulse Rate 84 77 74 Respiratory Rate 27 H 28 H 26 H Blood Pressure 124/71 134/62 Pulse Oximetry 94 L 93 L 09/06/18 05:00 09/06/18 06:00 09/06/18 07:00 Temperature Pulse Rate 72 77 84 Respiratory Rate 26 H 27 H 21 Blood Pressure 108/64 106/77 120/74 Pulse Oximetry 93 L 90 L 90 L 09/06/18 08:00 09/06/18 08:42 09/06/18 09:00 Temperature 97.9 F Pulse Rate 79 83 Respiratory Rate 24 21 Blood Pressure 112/61 146/79 H 160/67 H Pulse Oximetry 91 L 97 97 09/06/18 09:28 09/06/18 10:00 09/06/18 11:00 Temperature 97 F L 96.8 F L Pulse Rate 85 80 76 Respiratory Rate 17 27 H 27 H Blood Pressure 141/89 H 108/64 Pulse Oximetry 95 95 09/06/18 14:34 09/06/18 14:37 09/06/18 14:45 Temperature 97.4 F L Pulse Rate 58 L 78 68 Respiratory Rate 20 18 Blood Pressure 92/69 L 95/61 L Pulse Oximetry 95 96 94 L 09/06/18 14:49 09/06/18 14:50 09/06/18 14:51 Temperature Pulse Rate 71 72 66 Respiratory Rate 18 15 16 Blood Pressure 86/57 L 83/62 L Pulse Oximetry 100 100 09/06/18 14:56 09/06/18 15:00 09/06/18 15:02 Temperature Pulse Rate 69 63 68 Respiratory Rate 16 19 18 Blood Pressure 109/69 89/62 L 93/61 L Pulse Oximetry 99 99 100 09/06/18 15:05 09/06/18 15:10 09/06/18 15:15 Temperature Pulse Rate 71 65 62 Respiratory Rate 19 19 21 Blood Pressure 95/60 L 135/89 152/84 H Pulse Oximetry 100 100 100 09/06/18 15:20 09/06/18 15:30 09/06/18 15:45 Temperature 97.4 F L Pulse Rate 63 61 64 Respiratory Rate 17 21 21 Blood Pressure 142/86 H 139/73 149/71 H Pulse Oximetry 100 100 100 09/06/18 16:00 09/06/18 16:16 09/06/18 17:00 Temperature 97.3 F L Pulse Rate 73 73 Respiratory Rate 18 25 H Blood Pressure Pulse Oximetry 100 100 97 Intake & Output 09/05/18 09/06/18 09/06/18 18:59 06:59 18:59 Intake Total 440 / 440 520 / 520 3140 / 3140 Output Total 600 / 600 400 / 400 565 / 565 Balance -160 / -160 120 / 120 2575 / 2575 Weight 108.5 kg Intake: IV 200 / 200 200 / 200 1640 / 1640 D5W Inj 1,000 ML @ 75 mls/hr IV 950 / 950 .CONT .[id number] [facility] Rx#:[id number] Neosynephrine Inj 40 MG In D5W 120 / 120 Inj 496 ML @ 40 MCG/MIN 30 mls/ hr IV.CONT TITRATE PRN Rx#: [id number] Diprivan 1000 mg/100 ml Inj 1, 20 / 20 000 mg In 100 ml @ 5 MCG/KG/MIN 3.255 mls/hr IV.CONT TITRATE PRN Rx#:[id number] Unasyn Inj 3 GM In NS Inj 100 200 / 200 200 / 200 100 / 100 ML @ 200 mls/hr IV.SIG Q6H [facility] Rx#:[id number] Azithromycin Inj 500 MG In NS 250 / 250 Inj 250 ML @ 250 mls/hr IV.SIG Q24H [facility] Rx#:[id number] Diflucan 400 mg Premix Bag 200 200 / 200 ML @ 0 mls/hr IV.SIG .STK-[facility] Rx#:[id number] Oral 240 / 240 320 / 320 Anesthesia Amount 1500 / 1500 Output: Urine 600 / 600 400 / 400 Estimated Blood Loss 100 / 100 Urine Amount (Catheter) 450 / 450 Indwelling Urethral Catheter 450 / 450 Wound Drainage # 1 Left Lower Abdomen Other: # Voids 4 # Incontinent Voids 3 Date of Last Bowel Movement 09/05/18 09/06/18 09/05/18 # Bowel Movements 1 # Incontinent Bowel Movements 1 Narrative: GENERAL: 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 HEAD: Normocephalic. EYES: No scleral icterus. No injection or drainage. NECK: Supple, trachea midline. No JVD. CARDIOVASCULAR: Irregular rate and rhythm without murmurs, gallops, or rubs. RESPIRATORY: Breath sounds equal bilaterally. Basal crackles bilaterally. No accessory muscle use. GASTROINTESTINAL: Abdomen is firm and has a dressing. No BS. MUSCULOSKELETAL: No cyanosis. +2 bilateral lower extremity edema as before. BACK: Nontender without obvious deformity. No CVA tenderness. - Urinary Catheter Management Indwelling Temp Sensing Catheter Cath placed during this visit: yes, but has since been removed by the nurse Reason for continuing: Decision to DC catheter Insertion date: 08/25/18 Insertion time: 14:20 Removal date: 08/29/18 Removal time: 12:30 Indwelling Urethral Catheter Cath placed during this visit: yes Reason for continuing: Hourly intake/output Insertion date: 09/06/18 Insertion time: 12:00 Results - Labs CBC & Chem 7: 09/06/18 05:41 09/06/18 05:41 Laboratory Results - last 24 hr 09/04/18 09/06/18 09/06/18 17:40 00:00 05:40 WBC RBC Hgb Hct MCV MCH MCHC RDW Plt Count MPV Neut % (Auto) Lymph % (Auto) [place] % (Auto) Eos % (Auto) Baso % (Auto) Neut # (Auto) Lymph # (Auto) [place] # (Auto) Eos # (Auto) Baso # (Auto) WBC Differential Differential Comment Puncture Site Patient Temperature O2 Saturation ABG pH ABG pCO2 ABG pO2 ABG HCO3 ABG O2 Content ABG Base Excess ABG Methemoglobin Braxton Test Hemoglobin Carboxyhemoglobin O2 Delivery Device Liter Flow Critical Value Sodium Potassium Chloride Carbon Dioxide Anion Gap BUN Creatinine Estimated GFR POC Glucose 126 H 165 H Random Glucose Calcium Phosphorus Magnesium Albumin Herpes Simplex Source Lips HSV I DNA PCR Positive HSV II DNA PCR Negative Blood Type Antibody Screen MTS Gel Crossmatch Bld Prod Order Comment 09/06/18 09/06/18 09/06/18 05:41 05:41 09:20 WBC 22.7 H RBC 3.11 L Hgb 10.0 L Hct 29.7 L MCV 95.4 MCH 32.0 MCHC 33.6 RDW 15.3 Plt Count 217 MPV 9.8 Neut % (Auto) 94.0 H Lymph % (Auto) 2.2 L [place] % (Auto) 3.0 Eos % (Auto) 0.2 Baso % (Auto) 0.6 Neut # (Auto) 21.3 H Lymph # (Auto) 0.5 L [place] # (Auto) 0.7 Eos # (Auto) 0.1 Baso # (Auto) 0.1 WBC Differential . Differential Comment Auto diff final Puncture Site Left radial Patient Temperature 98.6 O2 Saturation 93 ABG pH 7.37 L ABG pCO2 50 H ABG pO2 83 ABG HCO3 28 H ABG O2 Content 14.1 ABG Base Excess 3.2 H ABG Methemoglobin 1.1 Braxton Test Present Hemoglobin 10.8 L Carboxyhemoglobin 1.9 O2 Delivery Device Nasal cannula Liter Flow 3.00 Critical Value No Sodium 148 H Potassium 3.6 Chloride 115 H Carbon Dioxide 27.9 Anion Gap 5 BUN 35 H Creatinine 1.01 Estimated GFR 71 L POC Glucose Random Glucose 160 H Calcium 8.7 Phosphorus 3.0 Magnesium 2.3 Albumin 1.8 L Herpes Simplex Source HSV I DNA PCR HSV II DNA PCR Blood Type Antibody Screen MTS Gel Crossmatch Bld Prod Order Comment 09/06/18 09/06/18 11:10 12:46 WBC RBC Hgb Hct MCV MCH MCHC RDW Plt Count MPV Neut % (Auto) Lymph % (Auto) [place] % (Auto) Eos % (Auto) Baso % (Auto) Neut # (Auto) Lymph # (Auto) [place] # (Auto) Eos # (Auto) Baso # (Auto) WBC Differential Differential Comment Puncture Site Patient Temperature O2 Saturation ABG pH ABG pCO2 ABG pO2 ABG HCO3 ABG O2 Content ABG Base Excess ABG Methemoglobin Braxton Test Hemoglobin Carboxyhemoglobin O2 Delivery Device Liter Flow Critical Value Sodium Potassium Chloride Carbon Dioxide Anion Gap BUN Creatinine Estimated GFR POC Glucose 151 H Random Glucose Calcium Phosphorus Magnesium Albumin Herpes Simplex Source HSV I DNA PCR HSV II DNA PCR Blood Type O Positive Antibody Screen Negative MTS Gel Crossmatch See Detail Bld Prod Order Comment - Imaging Impressions Chest X-Ray 09/06/18 00:00 CONCLUSION: Free intraperitoneal air. Cardiomegaly. Bilateral areas of consolidation being worse on the right. This information was relayed to Nathaniel, the patient's nurse by telephone. Assessment and Plan - Assessment (1) COPD (chronic obstructive pulmonary disease) Code(s): J44.9 - Chronic obstructive pulmonary disease, unspecified Status: Acute (2) Severe sepsis Code(s): A41.9 - Sepsis, unspecified organism; R65.20 - Severe sepsis without septic shock Status: Acute (3) Pneumonia Code(s): J18.9 - Pneumonia, unspecified organism Status: Acute (4) Acute respiratory failure with hypoxia and hypercapnia Code(s): J96.01 - Acute respiratory failure with hypoxia; J96.02 - Acute respiratory failure with hypercapnia Status: Acute (5) Lactic acidosis Code(s): E87.2 - Acidosis Status: Acute (6) Atrial fibrillation with rapid ventricular response Code(s): I48.91 - Unspecified atrial fibrillation Status: Acute (7) Acute kidney injury Code(s): N17.9 - Acute kidney failure, unspecified Status: Acute (8) Chronic steroid use Status: Chronic (9) Hypertension Code(s): I10 - Essential (primary) hypertension Status: Chronic (10) Pulmonary cavitary lesion Code(s): J98.4 - Other disorders of lung Status: Acute - Plan 1. Place on Home CPAP ,FIO2 28 % at HS 2. O2 N/C 5 L daytime and wean 3. Duoneb nebs q6h 4. Chest Xray in am 5. Continue antibiotics per ID . 6. Taper Prednisone 10 mg daily 7. Continue Eliquis 5 mg BID. 8. Breo 200/25 Mcg, 1 puff daily 9. Add EzPAP with Nebs qid. 10. Cont lasix 20 mg daily (3) Pneumonia Qualifiers: Pneumonia type: due to unspecified organism Laterality: bilateral Lung location: unspecified part of lung Qualified Code(s): J18.9 - Pneumonia, unspecified organism (9) Hypertension Qualifiers: Hypertension type: essential hypertension Qualified Code(s): I10 - Essential (primary) hypertension
[2018-09-06] MEDS: Vancomycin Inj 1,500 MG in Sodium Chlor 0.9% Inj 500 ML IV.SIG SCH (18:37)
[2018-09-06 19:12] LABS: Baso % (Auto) 0.2 % (0.0-2.0); Hematocrit 32.5 % (39.0-51.0); Hemoglobin 10.5 gm/dL (13.0-17.0); Lymph # (Auto) 0.5 th/mm3 (1.0-4.8); Lymph % (Auto) 1.6 % (9.0-44.0); Mean Corpuscular HGB Conc 32.5 % (32.0-36.0); Mean Corpuscular Hemoglobin 31.1 pg (27.0-34.0); Mean Corpuscular Volume 95.7 fL (80.0-100.0); Mean Platelet Volume 9.8 fL (7.0-11.0); Mono # (Auto) 0.7 th/mm3 (0.0-0.9); Mono % (Auto) 2.6 % (0.0-8.0); Neut # (Auto) 26.7 th/mm3 (1.8-7.7); Neut % (Auto) 95.6 % (16.0-70.0); Platelet Count 231 th/mm3 (150-450); Red Blood Count 3.39 mil/mm3 (4.50-5.90); Red Cell Distribution Width 15.1 % (11.6-17.2); White Blood Count 27.9 th/mm3 (4.0-11.0)
[2018-09-06 19:23] LABS: ABG Base Excess 1.7 mmol/L (-2-2); ABG PCO2 38 mmHg (38-42); ABG PO2 56 mmHg (61-120)
[2018-09-06 19:40] LABS: Albumin 1.8 g/dL (3.4-5.0); Anion Gap 7 meq/L (5-15); Aspartate Aminotransferase 18 U/L (15-37); Blood Urea Nitrogen 31 mg/dL (7-18); Calcium 8.4 mg/dL (8.5-10.1); Carbon Dioxide 27.3 meq/L (21.0-32.0); Chloride 113 meq/L (98-107); Glomerular Filtration Rate 81 mL/min (>89); Glucose,Random 159 mg/dL (74-106); Potassium 3.6 meq/L (3.5-5.1); Sodium 147 meq/L (136-145)
[2018-09-06 19:41] LABS: Alanine Aminotransferase 22 U/L (12-78)
[2018-09-06 19:43] LABS: Alkaline Phosphatase 56 U/L (45-117); Total Protein 4.6 g/dL (6.4-8.2)
--- NOTE | 2018-09-06 21:52 | MB ---
cc: Lul Richards MD DATE: 09/06/2018 CHIEF COMPLAINT: Perforated viscus, intraabdominal free air. EQUITY TRADER: Shawn Matta MD HISTORY OF PRESENT ILLNESS: The patient is an 83-year-old male who presents on 08/25/2018. The patient is noted to have multiple medical issues. He presented due to increased shortness of breath and worsening lung function. The patient was noted to be treated for concerns of pneumonia and was admitted and initially placed on ventilator support with some improvement. The patient has been followed by Infectious Disease and Critical Care as well. The patient was noted in the last 24 hours becoming increasingly lethargic with increased abdominal distention and pain. He had a CT scan, which I reviewed, and an abdominal chest x-ray this morning that showed significant intra-abdominal free air. Therefore, surgery was consulted. On my evaluation, the patient noted to be hemodynamically stable, although neurologically was waxing and waning. He was intermittently answering questions, but most of history was obtained via the . The patient was noted to have significant abdominal pain and distention with some peritoneal tenderness. The patient was further noted to be on steroids for his lung function treatment and also given a dose of Eliquis, and is currently on Eliquis. PAST MEDICAL HISTORY: 1. Atrial fibrillation. 2. Hyperlipidemia. 3. Hypertension. 4. Trigeminal neuralgia. 5. COPD. 6. Coronary artery disease. 7. Pulmonary fibrosis. 8. Squamous cell cancer. PAST SURGICAL HISTORY: 1. Oral cancer surgery. 2. Injections for trigeminal neuralgia. 3. Total knee arthroplasty. MEDICATIONS: See EMR, Eliquis. SOCIAL HISTORY: History of smoking. Denies current smoking, ETOH or IVDA. ALLERGIES: 1. AMIODARONE. 3. FLUVASTATIN. 4. SULFA. FAMILY HISTORY: Denies diabetes or hypertension. REVIEW OF SYSTEMS: GENERAL: The patient is in significant distress. HEENT: Denies eye pain, ear pain. NECK: Denies pain. LUNGS: Clear. No cough or wheeze. HEART: Denies palpitation, arrhythmia. ABDOMEN: Complaining of abdominal pain, denies vomiting. GENITOURINARY: Denies dysuria or hematuria. Denies polyuria or polydipsia. INTEGUMENT: Denies cysts. PSYCHIATRIC: Appropriate mood, appropriate judgment. PHYSICAL EXAMINATION: GENERAL: Significant distress. VITAL SIGNS: Temperature 98, pulse 94, respiration 29, blood pressure 125/61, saturation 98%. HEENT: Pupils equal, round, reactive. NECK: Supple. Trachea was midline. LUNGS: Decreased breath sounds on the right. Coarse breath sounds. Bilateral expansion. HEART: S1, S2, irregularly irregular. ABDOMEN: Distended, rebound, peritoneal signs. EXTREMITIES: Warm and well perfused. NEUROLOGIC: Waxing and waning GCS 13-15. Moving all extremities. PSYCHIATRIC: Appropriate mood, appropriate insight. LABORATORY AND DIAGNOSTIC DATA: WBC is 22.7, hemoglobin 10.0, hematocrit 29.7, platelets 217. Sodium 148, potassium 3.8, chloride 112, BUN 35, creatinine 1, glucose 160, calcium 8.7, albumin 1.8. Chest x-ray was reviewed by myself showing intra-abdominal free air. CT chest showing patchy alveolar disease, worse in the right lung. ASSESSMENT: The patient is an 83-year-old male who presents with multiple medical issues, severe lung dysfunction, atrial fibrillation on Eliquis with a perforation of viscus, concern for a gastric ulcer versus gastrointestinal perforation. PLAN: As a full workup of the patient with the above-named issues, at this point, the patient is emergently taken to the operating room for surgical intervention. I discussed with the in detail regarding a diagnostic laparoscopy, possible open exploratory laparotomy, possible bowel resection, possible colostomy. states understanding of this and agrees to proceed with emergency surgical intervention. The patient also needs to be n.p.o., IV fluids, pain control, IV antibiotics. Discussed with further regarding severity of the situation and critical condition. MD DAVID Perez/buster/do , 07:27 PM , 07:40 PM VINICIO
--- NOTE | 2018-09-06 22:33 | MP ---
cc: Lul Richards MD DATE OF OPERATION: 09/06/2018 PREOPERATIVE DIAGNOSIS: Perforation of viscus. POSTOPERATIVE DIAGNOSIS: Perforation of viscus, microperforation of cecum with cecal volvulus. PROCEDURE PERFORMED: 1. Diagnostic laparoscopy. 2. Open exploratory laparotomy. 3. Right hemicolectomy. 4. Primary anastomosis. 5. TANG placement. 6. Washout. SURGEON: Lul Richards MD CRUISE DIRECTOR: Theresa. ANESTHESIA: GETA. IV FLUIDS: See anesthesia sheet. ESTIMATED BLOOD LOSS: 100 mL. DRAINS: A 19-Liberian Justin drain. COMPLICATIONS: None. WOUND CLASSIFICATION: Contaminated. FINDINGS: Serous intraperitoneal fluid, massive free air, microperforation of cecum with cecal volvulus. SPECIMENS: Right colon. HISTORY OF PRESENT ILLNESS: The patient is an 83-year-old male who presented with multiple medical issues, lung dysfunction and development of a perforation of viscus. The patient planned for emergency operative intervention. DETAILS OF PROCEDURE: The patient was taken to the operative suite, placed in a supine position. She was prepped and draped in the usual sterile fashion after induction of general endotracheal anesthesia. Local anesthetic was injected. Stab doug incision was made. Abdomen is entered with a 5 mm port. Three other ports were placed, including 1 right upper quadrant, 1 right lower quadrant and a left upper quadrant port, 5 mm. Exploration had begun and there was noted to be some serosanguineous fluid throughout the abdomen. This was not overly purulent or did not appear to be significantly succuss. The suction irrigation was done. The examination of the stomach noted no abnormality and noted to be viable and healthy. The small bowel was run from ligament of Treitz to the terminal ileum without evidence of abnormality. The colon was then examined. There was noted to be a volvulus of cecum with a small microperforation and a small necrotic area. At this point, decision was made for an open exploratory laparotomy. The midline was extended with a 15 blade. Further dissection done with electro Bovie electrocautery. Bookwalter retractor was placed. Glen wound protector was also placed. Self-retaining retractors were placed for abdominal exposure. The white line of Toldt was mobilized to mobilize for the cecum, ileocecal valve and terminal ileum. Proximal to the ileocecal valve a 5 cm, a point was transected with a blue DB stapler. Harmonic was used to transect the base of the mesentery and for hemostasis. Proximally, the colon was mobilized. The hepatic flexure was further mobilized as well and the colon was transected proximal to the area of torsion and perforation. Further dissection and ligation of vessels was done with Harmonic scalpel. The colonic specimen, right hemicolon, was removed and placed in pathology. The abdomen was then thoroughly irrigated with warm normal saline. The patient was noted not to be on any pressor support and very stable at the time and had received no transfusion, other than the Kcentra for coagulant Eliquis reversal. The decision at this point was to do primary anastomosis. This was done in a stapled manner. The antimesenteric border and the tinea were placed opposing each other; 3-0 silk sutures were used for this. Small enterotomies were made in both opposing ends and an DB-75 blue load stapler was used to create a [id number]-[id number] layer. The incisions were grasped with Allis clamps and then a TX 60 was used to transect and staple this closure. The staple line was oversewn with 3-0 silk Lembert sutures. Mesenteric defect was also closed. A crotch stitch was placed. A palpable patent ring was noted and completely viable. The abdomen was again washed out with a liter of warm saline. Omentum was placed back in its anatomical position. A 19-Liberian Justin drain was placed through a separate stab incision in the left lower quadrant and placed in the pelvis and along the right gutter. The abdomen was closed with looped PDS x 2 in a running fashion followed by misha and a TANG dressing was placed. 2-0 nylon used to secure 19-Liberian Justin drain in place. The patient tolerated the procedure well. There were no intraoperative complications. All lap and instrument counts were correct at the end of the procedure. The patient was taken to ICU in critical condition. MD DAVID Perez/buster , 07:35 PM , 07:46 PM
[2018-09-07] MEDS: Dextrose 5% in Water Inj 1,000 ML IV.CONT SCH ×4 (02:19→12:10)
[2018-09-07] MEDS: Oral Hygiene Kit OROPHARYNG SCH ×3 (04:26→15:54)
[2018-09-07] MEDS: Piperacil/Tazo 4.5 GM Premix 4.5 GM/100 ML BAG IV.SIG SCH ×4 (05:34→23:22)
[2018-09-07] MEDS: Insulin NovoLOG Aspart Correctional Sugar Inj SQ SCH ×3 (05:34→18:51)
[2018-09-07] MEDS: Artificial Tears Opth Drops 15 ML Bottle EACH EYE SCH ×3 (06:12→23:15)
[2018-09-07 06:29] LABS: Baso # (Auto) 0.2 th/mm3 (0.0-0.2); Baso % (Auto) 0.8 % (0.0-2.0); Eos % (Auto) 0.2 % (0.0-4.0); Hematocrit 30.6 % (39.0-51.0); Hemoglobin 10.3 gm/dL (13.0-17.0); Lymph # (Auto) 0.4 th/mm3 (1.0-4.8); Mean Corpuscular HGB Conc 33.6 % (32.0-36.0); Mean Corpuscular Hemoglobin 32.3 pg (27.0-34.0); Mean Corpuscular Volume 96.1 fL (80.0-100.0); Mean Platelet Volume 9.9 fL (7.0-11.0); Mono # (Auto) 0.7 th/mm3 (0.0-0.9); Mono % (Auto) 3.2 % (0.0-8.0); Neut # (Auto) 20.9 th/mm3 (1.8-7.7); Neut % (Auto) 93.8 % (16.0-70.0); Platelet Count 217 th/mm3 (150-450); Red Blood Count 3.18 mil/mm3 (4.50-5.90); Red Cell Distribution Width 15.5 % (11.6-17.2); White Blood Count 22.2 th/mm3 (4.0-11.0)
[2018-09-07 07:04] LABS: Alanine Aminotransferase 19 U/L (12-78); Albumin 1.7 g/dL (3.4-5.0); Anion Gap 7 meq/L (5-15); Aspartate Aminotransferase 22 U/L (15-37); Blood Urea Nitrogen 30 mg/dL (7-18); Calcium 8.3 mg/dL (8.5-10.1); Carbon Dioxide 30.3 meq/L (21.0-32.0); Chloride 110 meq/L (98-107); Glomerular Filtration Rate 68 mL/min (>89); Glucose,Random 151 mg/dL (74-106); Potassium 3.6 meq/L (3.5-5.1); Sodium 147 meq/L (136-145)
[2018-09-07 07:07] LABS: Alkaline Phosphatase 51 U/L (45-117); Total Protein 4.5 g/dL (6.4-8.2)
[2018-09-07] MEDS: Chlorhexidine 0.12% Oral Kit 15 ML UDC OROPHARYNG SCH ×2 (08:36→20:42)
[2018-09-07] MEDS: predniSONE 10 MG Tablet PO SCH (08:37)
[2018-09-07] MEDS: Senna/Docusate Sodium 8.6/50 MG Tablet PO SCH ×2 (08:38→20:44)
[2018-09-07] MEDS: Metoprolol Tartrate 25 MG Tablet PO SCH (08:38)
[2018-09-07] MEDS: Lactobacillus Acidophilus/L. Spores Tablet PO SCH ×2 (08:38→20:44)
--- NOTE | 2018-09-07 09:41 | CT ---
EXAM DATE: 09/07/2018 9:28 AM EST AGE/SEX: 83 years / Male INDICATIONS: Distention. CLINICAL DATA: This is the patient's initial encounter. Patient reports that signs and symptoms have been present for 1 day and indicates a pain score of Nonresponsive. MEDICAL/SURGICAL HISTORY: Chronic obstructive pulmonary disease. Hypertension. Lithotripsy. RADIATION DOSE: 27.23 CTDI (mGy) ; Patient body habitus COMPARISON: [facility] [place], CT ABDOMEN & PELVIS W/O CONTRAST, 09/05/2018. . TECHNIQUE: Multiple contiguous axial images were obtained through the abdomen. Images were obtained using multiple row detector helical technique. Using automated exposure control and adjustment of the mA and/or kV according to patient size, radiation dose was kept as low as reasonably achievable to o btain optimal diagnostic quality images. DICOM format image data is available electronically for rev iew and comparison. FINDINGS: Lower Lungs: No significant change in the pleural-parenchymal infiltrates in both lung bases. Liver: The liver has a homogeneous density without space-occupying lesion. There is no dilation of th e biliary tree. There continues to be a small amount of fluid around the liver. Spleen: Homogeneous density without enlargement. Small amount of fluid around the spleen. Pancreas: Unremarkable without mass or calcification. Kidneys: Normal in size and shape. No evidence of mass or hydronephrosis. Stable bilateral renal cys ts. Adrenal Glands: Stable 2.4 cm left adrenal adenoma. Right adrenal gland is unremarkable. Aorta: Stable atherosclerotic changes. Bowel/Mesentery: The patient is recently status post abdominal surgery. There is free air throughout the abdomen. There is an NG tube in the stomach. There are some drainage catheters in the lower abdo men. There is some air-filled mildly dilated loops of small bowel. The colon is nondistended. There i s some stool in the colon. No significant free fluid is seen. There is a rectal catheter in place. Abdominal Wall: Subcutaneous emphysema throughout the soft tissues of the anterior abdominal wall co nsistent with recent surgery. Retroperitoneum: No evidence of adenopathy in the retrocrural, para-aortic, or deep pelvic regions. Bladder: Chavez catheter, decompressed Reproductive Organs: No abnormal masses or calcifications seen. Inguinal: The inguinal region is unremarkable without evidence of adenopathy. Bony Structures: Bony degenerative changes. CONCLUSION: 1. Status post recent abdominal surgery with free air throughout the abdomen. 2. Mild air-filled loops of small bowel suggestive of a postoperative ileus. 3. Otherwise no other significant changes are seen compared to the prior exam. Electronically signed by: Hima Taylor MD 09/07/2018 9:39 AM EST
--- NOTE | 2018-09-07 09:47 | P.PNPL ---
Subjective Interval history: Patient s/p Open exploratory laparotomy, right hemicolectomy last night for perforated viscus, extubated and now on 5L oxygen, afebrile. WBC is trending down. Physical Exam Vital signs: Vital Signs 09/06/18 09:28 09/06/18 10:00 09/06/18 11:00 Temperature 97 F L 96.8 F L Pulse Rate 85 80 76 Respiratory Rate 17 27 H 27 H Blood Pressure 141/89 H 108/64 Pulse Oximetry 95 95 09/06/18 14:34 09/06/18 14:37 09/06/18 14:45 Temperature 97.4 F L Pulse Rate 58 L 78 68 Respiratory Rate 20 18 Blood Pressure 92/69 L 95/61 L Pulse Oximetry 95 96 94 L 09/06/18 14:49 09/06/18 14:50 09/06/18 14:51 Temperature Pulse Rate 71 72 66 Respiratory Rate 18 15 16 Blood Pressure 86/57 L 83/62 L Pulse Oximetry 100 100 09/06/18 14:56 09/06/18 15:00 09/06/18 15:02 Temperature Pulse Rate 69 63 68 Respiratory Rate 16 19 18 Blood Pressure 109/69 89/62 L 93/61 L Pulse Oximetry 99 99 100 09/06/18 15:05 09/06/18 15:10 09/06/18 15:15 Temperature Pulse Rate 71 65 62 Respiratory Rate 19 19 21 Blood Pressure 95/60 L 135/89 152/84 H Pulse Oximetry 100 100 100 09/06/18 15:20 09/06/18 15:30 09/06/18 15:45 Temperature 97.4 F L Pulse Rate 63 61 64 Respiratory Rate 17 21 21 Blood Pressure 142/86 H 139/73 149/71 H Pulse Oximetry 100 100 100 09/06/18 16:00 09/06/18 16:16 09/06/18 17:00 Temperature 97.3 F L Pulse Rate 73 73 Respiratory Rate 18 25 H Blood Pressure Pulse Oximetry 100 100 97 09/06/18 18:00 09/06/18 19:00 09/06/18 19:40 Temperature 97.7 F 97.7 F Pulse Rate 80 79 Respiratory Rate 25 H 29 H Blood Pressure Pulse Oximetry 93 L 91 L 96 09/06/18 19:50 09/06/18 20:00 09/06/18 20:24 Temperature 97.9 F 98.1 F Pulse Rate 83 84 78 Respiratory Rate 32 H 29 H 26 H Blood Pressure 113/82 Pulse Oximetry 91 L 99 09/06/18 20:49 09/06/18 21:00 09/06/18 21:10 Temperature 98.1 F 98.1 F 98.1 F Pulse Rate 81 82 88 Respiratory Rate 27 H 24 30 H Blood Pressure 107/67 116/56 L 119/58 L Pulse Oximetry 100 100 100 09/06/18 22:00 09/06/18 22:10 09/06/18 23:00 Temperature 98.4 F 98.4 F 98.8 F Pulse Rate 85 90 82 Respiratory Rate 28 H 33 H 29 H Blood Pressure 113/87 Pulse Oximetry 98 97 100 09/06/18 23:10 09/07/18 00:00 09/07/18 00:10 Temperature 98.8 F 99.0 F 99.0 F Pulse Rate 85 87 80 Respiratory Rate 29 H 29 H 28 H Blood Pressure 119/58 L 82/66 L Pulse Oximetry 92 L 96 99 09/07/18 00:59 09/07/18 01:00 09/07/18 02:00 Temperature 99.1 F 99.1 F 99.3 F Pulse Rate 86 83 90 Respiratory Rate 35 H 27 H 26 H Blood Pressure 125/55 L Pulse Oximetry 97 97 98 09/07/18 02:27 09/07/18 02:45 09/07/18 03:00 Temperature 99.3 F 99.3 F 99.3 F Pulse Rate 86 85 85 Respiratory Rate 28 H 24 29 H Blood Pressure 89/55 L 113/71 Pulse Oximetry 100 99 100 09/07/18 03:29 09/07/18 03:30 09/07/18 04:00 Temperature 99.3 F 99.3 F Pulse Rate 90 94 H 88 Respiratory Rate 26 H 24 26 H Blood Pressure 107/57 L 113/58 L Pulse Oximetry 97 93 L 09/07/18 04:30 09/07/18 05:00 09/07/18 05:30 Temperature 99.3 F 99.3 F 99.3 F Pulse Rate 91 H 99 H 93 H Respiratory Rate 24 32 H 28 H Blood Pressure 100/56 L 106/58 L 103/63 Pulse Oximetry 92 L 97 95 09/07/18 06:00 09/07/18 06:30 09/07/18 07:00 Temperature 99.5 F 99.5 F 99.5 F Pulse Rate 91 H 92 H 92 H Respiratory Rate 26 H 24 30 H Blood Pressure 108/59 L 96/52 L 91/66 L Pulse Oximetry 99 100 100 09/07/18 07:30 09/07/18 07:37 09/07/18 07:40 Temperature 99.3 F Pulse Rate 94 H 90 Respiratory Rate 32 H 28 H Blood Pressure 111/61 Pulse Oximetry 100 100 09/07/18 08:00 Temperature 99.3 F Pulse Rate 92 H Respiratory Rate 30 H Blood Pressure 106/62 Pulse Oximetry 98 Intake & Output 09/06/18 09/07/18 09/07/18 18:59 06:59 18:59 Intake Total 3340 / 3340 1515 / 1515 Output Total 565 / 565 610 / 610 Balance 2775 / 2775 905 / 905 Weight 110.1 kg Intake: IV 1840 / 1840 1515 / 1515 D5W Inj 1,000 ML @ 75 mls/hr IV 950 / 950 .CONT .[id number] [facility] Rx#:[id number] Neosynephrine Inj 40 MG In D5W 120 / 120 Inj 496 ML @ 40 MCG/MIN 30 mls/ hr IV.CONT TITRATE PRN Rx#: [id number] Diprivan 1000 mg/100 ml Inj 1, 20 / 20 000 mg In 100 ml @ 5 MCG/KG/MIN 3.255 mls/hr IV.CONT TITRATE PRN Rx#:[id number] Ofirmev Inj 1,000 mg In 100 ml 100 / 100 @ 400 mls/hr IV.SIG Q6H [facility] Rx# :[id number] Unasyn Inj 3 GM In NS Inj 100 100 / 100 ML @ 200 mls/hr IV.SIG Q6H [facility] Rx#:[id number] Azithromycin Inj 500 MG In NS 250 / 250 Inj 250 ML @ 250 mls/hr IV.SIG Q24H [facility] Rx#:[id number] Diflucan 400 mg Premix Bag 200 200 / 200 ML @ 0 mls/hr IV.SIG .STK-MED ONE Rx#:[id number] LR 1000 mL Inj 500 ML @ 500 mls 500 / 500 /hr IV.SIG .Q1H ONE Rx#: [id number] Zosyn 4.5 GM Premix 4.5 gm In 100 / 100 200 / 200 100 ml @ 200 mls/hr IV.SIG Q6H [facility] Rx#:[id number] Vancomycin Inj 1,500 MG In NS 515 / 515 Inj 500 ML @ 250 mls/hr IV.SIG Q18H [facility] Rx#:[id number] Flagyl 500 MG Inj 100 ML @ 100 100 / 100 200 / 200 mls/hr IV.SIG Q6H [facility] Rx#: [id number] Anesthesia Amount 1500 / 1500 Output: Estimated Blood Loss 100 / 100 Urine Amount (Catheter) 450 / 450 600 / 600 Indwelling Urethral Catheter 450 / 450 600 / 600 Wound Drainage # 1 Left Lower Abdomen Other: Date of Last Bowel Movement 09/05/18 09/05/18 - Constitutional mild distress, obese, chronically ill appearing - Routine HEENT Exam Head: Present: normocephalic, atraumatic Eye: Present: EOMI, PERRL, normal accommodation, conjunctivae pink ENT: Present: mucous membranes moist - Routine Neck Exam Present: supple, full ROM, trachea midline - Routine Respiratory Exam Present: rhonchi, crackles - Routine Cardiovascular Exam Present: RRR, S1, S2 - Routine Abdominal Exam Present: tenderness, distended, firm - Urinary Catheter Management Indwelling Temp Sensing Catheter Cath placed during this visit: yes, but has since been removed by the nurse Reason for continuing: Decision to DC catheter Insertion date: 08/25/18 Insertion time: 14:20 Removal date: 08/29/18 Removal time: 12:30 Indwelling Urethral Catheter Cath placed during this visit: yes Reason for continuing: Hourly intake/output Insertion date: 09/06/18 Insertion time: 12:00 Assessment and Plan - Assessment (1) Acute respiratory failure with hypoxia and hypercapnia Code(s): J96.01 - Acute respiratory failure with hypoxia; J96.02 - Acute respiratory failure with hypercapnia Status: Acute (2) Hyponatremia Code(s): E87.1 - Hypo-osmolality and hyponatremia Status: Acute (3) Lactic acidosis Code(s): E87.2 - Acidosis Status: Acute (4) Atrial fibrillation with rapid ventricular response Code(s): I48.91 - Unspecified atrial fibrillation Status: Acute (5) Acute kidney injury Code(s): N17.9 - Acute kidney failure, unspecified Status: Acute (6) Chronic steroid use Status: Chronic (7) Hypertension Code(s): I10 - Essential (primary) hypertension Status: Chronic Qualifiers: Hypertension type: essential hypertension Qualified Code(s): I10 - Essential (primary) hypertension (8) Hyperlipidemia Code(s): E78.5 - Hyperlipidemia, unspecified Status: Chronic Qualifiers: Hyperlipidemia type: unspecified Qualified Code(s): E78.5 - Hyperlipidemia , unspecified (9) Hard of hearing Code(s): H91.90 - Unspecified hearing loss, unspecified ear Status: Chronic Qualifiers: Hearing loss type: unspecified Laterality: bilateral Qualified Code(s): H91.93 - Unspecified hearing loss, bilateral (10) Trigeminal neuralgia Code(s): G50.0 - Trigeminal neuralgia Status: Chronic (11) Chronic anticoagulation Code(s): Z79.01 - skilled nursing (current) use of anticoagulants Status: Chronic (12) Leukocytosis Code(s): D72.829 - Elevated white blood cell count, unspecified Status: Acute Qualifiers: Leukocytosis type: unspecified Qualified Code(s): D72.829 - Elevated white blood cell count, unspecified (13) Elevated troponin Code(s): R74.8 - Abnormal levels of other serum enzymes Status: Acute (14) Hypoalbuminemia Code(s): E88.09 - Other disorders of plasma-protein metabolism, not elsewhere classified Status: Acute - Plan 1)Resp Insuff 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 4) Haemophilus Influenza bacteremia 08/25 5) JAMES 6)Perforated viscus s/p Open exploratory laparotomy, Right hemicolectomy, Primary anastomosis and washout 7)Leukocytosis Plan Wean down oxygen as zulma keep sats >92% Bronchodilators ( DuoNeb, Breo) Home CPAP ,FIO2 28 % HS EzPAP with Nebs qid. BIPAP PRN for resp distress On Prednisone 10mg daily Continue abx per ID ( On Vanoc, Zosyn, Flagyl, Azithromycin, top Acyclovir ) monitor for signs of infections ( Fever, WBC) d/c IVF(fluid overload) GI/DVT prophylaxis- On Eliquis 5mg BID Continue treatment plan. Discussed with patient's and nursing staff
--- NOTE | 2018-09-07 11:53 | P.PNNP ---
Subjective Interval history: Patient is alert, not in distress, no SOB, with NGT suction. Physical Exam Vital signs: Vital Signs 09/06/18 14:34 09/06/18 14:37 09/06/18 14:45 Temperature 97.4 F L Pulse Rate 58 L 78 68 Respiratory Rate 20 18 Blood Pressure 92/69 L 95/61 L Pulse Oximetry 95 96 94 L 09/06/18 14:49 09/06/18 14:50 09/06/18 14:51 Temperature Pulse Rate 71 72 66 Respiratory Rate 18 15 16 Blood Pressure 86/57 L 83/62 L Pulse Oximetry 100 100 09/06/18 14:56 09/06/18 15:00 09/06/18 15:02 Temperature Pulse Rate 69 63 68 Respiratory Rate 16 19 18 Blood Pressure 109/69 89/62 L 93/61 L Pulse Oximetry 99 99 100 09/06/18 15:05 09/06/18 15:10 09/06/18 15:15 Temperature Pulse Rate 71 65 62 Respiratory Rate 19 19 21 Blood Pressure 95/60 L 135/89 152/84 H Pulse Oximetry 100 100 100 09/06/18 15:20 09/06/18 15:30 09/06/18 15:45 Temperature 97.4 F L Pulse Rate 63 61 64 Respiratory Rate 17 21 21 Blood Pressure 142/86 H 139/73 149/71 H Pulse Oximetry 100 100 100 09/06/18 16:00 09/06/18 16:16 09/06/18 17:00 Temperature 97.3 F L Pulse Rate 73 73 Respiratory Rate 18 25 H Blood Pressure Pulse Oximetry 100 100 97 09/06/18 18:00 09/06/18 19:00 09/06/18 19:40 Temperature 97.7 F 97.7 F Pulse Rate 80 79 Respiratory Rate 25 H 29 H Blood Pressure Pulse Oximetry 93 L 91 L 96 09/06/18 19:50 09/06/18 20:00 09/06/18 20:24 Temperature 97.9 F 98.1 F Pulse Rate 83 84 78 Respiratory Rate 32 H 29 H 26 H Blood Pressure 113/82 Pulse Oximetry 91 L 99 09/06/18 20:49 09/06/18 21:00 09/06/18 21:10 Temperature 98.1 F 98.1 F 98.1 F Pulse Rate 81 82 88 Respiratory Rate 27 H 24 30 H Blood Pressure 107/67 116/56 L 119/58 L Pulse Oximetry 100 100 100 09/06/18 22:00 09/06/18 22:10 09/06/18 23:00 Temperature 98.4 F 98.4 F 98.8 F Pulse Rate 85 90 82 Respiratory Rate 28 H 33 H 29 H Blood Pressure 113/87 Pulse Oximetry 98 97 100 09/06/18 23:10 09/07/18 00:00 09/07/18 00:10 Temperature 98.8 F 99.0 F 99.0 F Pulse Rate 85 87 80 Respiratory Rate 29 H 29 H 28 H Blood Pressure 119/58 L 82/66 L Pulse Oximetry 92 L 96 99 09/07/18 00:59 09/07/18 01:00 09/07/18 02:00 Temperature 99.1 F 99.1 F 99.3 F Pulse Rate 86 83 90 Respiratory Rate 35 H 27 H 26 H Blood Pressure 125/55 L Pulse Oximetry 97 97 98 09/07/18 02:27 09/07/18 02:45 09/07/18 03:00 Temperature 99.3 F 99.3 F 99.3 F Pulse Rate 86 85 85 Respiratory Rate 28 H 24 29 H Blood Pressure 89/55 L 113/71 Pulse Oximetry 100 99 100 09/07/18 03:29 09/07/18 03:30 09/07/18 04:00 Temperature 99.3 F 99.3 F Pulse Rate 90 94 H 88 Respiratory Rate 26 H 24 26 H Blood Pressure 107/57 L 113/58 L Pulse Oximetry 97 93 L 09/07/18 04:30 09/07/18 05:00 09/07/18 05:30 Temperature 99.3 F 99.3 F 99.3 F Pulse Rate 91 H 99 H 93 H Respiratory Rate 24 32 H 28 H Blood Pressure 100/56 L 106/58 L 103/63 Pulse Oximetry 92 L 97 95 09/07/18 06:00 09/07/18 06:30 09/07/18 07:00 Temperature 99.5 F 99.5 F 99.5 F Pulse Rate 91 H 92 H 92 H Respiratory Rate 26 H 24 30 H Blood Pressure 108/59 L 96/52 L 91/66 L Pulse Oximetry 99 100 100 09/07/18 07:30 09/07/18 07:37 09/07/18 07:40 Temperature 99.3 F Pulse Rate 94 H 90 Respiratory Rate 32 H 28 H Blood Pressure 111/61 Pulse Oximetry 100 100 09/07/18 08:00 09/07/18 08:30 09/07/18 09:00 Temperature 99.3 F Pulse Rate 92 H 95 H 92 H Respiratory Rate 30 H 30 H 27 H Blood Pressure 106/62 111/68 119/67 Pulse Oximetry 98 100 100 09/07/18 09:30 09/07/18 10:00 09/07/18 10:30 Temperature Pulse Rate 97 H 94 H 91 H Respiratory Rate 30 H 28 H 27 H Blood Pressure 114/63 114/59 L 101/62 Pulse Oximetry 100 97 09/07/18 11:00 09/07/18 11:14 Temperature Pulse Rate 93 H 104 H Respiratory Rate 28 H 28 H Blood Pressure 104/62 Pulse Oximetry 92 L Intake & Output 09/06/18 09/07/18 09/07/18 18:59 06:59 18:59 Intake Total 3340 / 3340 1515 / 1515 100 / 100 Output Total 565 / 565 610 / 610 Balance 2775 / 2775 905 / 905 100 / 100 Weight 110.1 kg Intake: IV 1840 / 1840 1515 / 1515 100 / 100 D5W Inj 1,000 ML @ 75 mls/hr IV 950 / 950 .CONT .[id number] [facility] Rx#:[id number] Neosynephrine Inj 40 MG In D5W 120 / 120 Inj 496 ML @ 40 MCG/MIN 30 mls/ hr IV.CONT TITRATE PRN Rx#: [id number] Diprivan 1000 mg/100 ml Inj 1, 20 / 20 000 mg In 100 ml @ 5 MCG/KG/MIN 3.255 mls/hr IV.CONT TITRATE PRN Rx#:[id number] Ofirmev Inj 1,000 mg In 100 ml 100 / 100 100 / 100 @ 400 mls/hr IV.SIG Q6H [facility] Rx# :[id number] Unasyn Inj 3 GM In NS Inj 100 100 / 100 ML @ 200 mls/hr IV.SIG Q6H [facility] Rx#:[id number] Azithromycin Inj 500 MG In NS 250 / 250 Inj 250 ML @ 250 mls/hr IV.SIG Q24H [facility] Rx#:[id number] Diflucan 400 mg Premix Bag 200 200 / 200 ML @ 0 mls/hr IV.SIG .STK-MED ONE Rx#:[id number] LR 1000 mL Inj 500 ML @ 500 mls 500 / 500 /hr IV.SIG .Q1H ONE Rx#: [id number] Zosyn 4.5 GM Premix 4.5 gm In 100 / 100 200 / 200 100 ml @ 200 mls/hr IV.SIG Q6H [facility] Rx#:[id number] Vancomycin Inj 1,500 MG In NS 515 / 515 Inj 500 ML @ 250 mls/hr IV.SIG Q18H [facility] Rx#:[id number] Flagyl 500 MG Inj 100 ML @ 100 100 / 100 200 / 200 mls/hr IV.SIG Q6H [facility] Rx#: [id number] Anesthesia Amount 1500 / 1500 Output: Estimated Blood Loss 100 / 100 Urine Amount (Catheter) 450 / 450 600 / 600 Indwelling Urethral Catheter 450 / 450 600 / 600 Wound Drainage # 1 Left Lower Abdomen Other: Date of Last Bowel Movement 09/05/18 09/05/18 Narrative: GENERAL: 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 HEAD: Normocephalic. EYES: No scleral icterus. No injection or drainage. NECK: Supple, trachea midline. No JVD. CARDIOVASCULAR: Irregular rate and rhythm without murmurs, gallops, or rubs. RESPIRATORY: Breath sounds equal bilaterally. Basal crackles bilaterally. No accessory muscle use. GASTROINTESTINAL: Abdomen is firm and has a dressing. No BS. MUSCULOSKELETAL: No cyanosis. +2 bilateral lower extremity edema as before. BACK: Nontender without obvious deformity. No CVA tenderness. - Urinary Catheter Management Indwelling Temp Sensing Catheter Cath placed during this visit: yes, but has since been removed by the nurse Reason for continuing: Decision to DC catheter Insertion date: 08/25/18 Insertion time: 14:20 Removal date: 08/29/18 Removal time: 12:30 Indwelling Urethral Catheter Cath placed during this visit: yes Reason for continuing: Hourly intake/output Insertion date: 09/06/18 Insertion time: 12:00 Assessment and Plan - Assessment (1) Hypernatremia Code(s): E87.0 - Hyperosmolality and hypernatremia Status: Acute Plan: Sodium is 147, slightly better, Continue D5W at 50 ml/hr., he is NPO and has NGT suction. Avoid nephrotoxic agents. Monitor urine output. Monitor for hyperglycemia, if patient develops hyperglycemia, osmotic diuresis will worsen hypernatremia. (2) Leukocytosis Code(s): D72.829 - Elevated white blood cell count, unspecified Status: Acute Qualifiers: Leukocytosis type: unspecified Qualified Code(s): D72.829 - Elevated white blood cell count, unspecified Plan: Has been diagnosed with pneumonia. Also is on steroids. (3) Pneumonia Code(s): J18.9 - Pneumonia, unspecified organism Status: Acute Qualifiers: Pneumonia type: due to unspecified organism Laterality: bilateral Lung location: unspecified part of lung Qualified Code(s): J18.9 - Pneumonia, unspecified organism Plan: Continue antibiotics, ID following.
[2018-09-07] MEDS: Azithromycin Inj 500 MG in Sodium Chlor 0.9% Inj 250 ML IV.SIG SCH (12:04)
[2018-09-07] MEDS: Pantoprazole Inj 40 MG Vial IV.PUSH SCH (13:14)
[2018-09-07] MEDS: Vancomycin Inj 1,500 MG in Sodium Chlor 0.9% Inj 500 ML IV.SIG SCH (13:14)
--- NOTE | 2018-09-07 17:42 | P.PNCC ---
Subjective Subjective Remarks/Hospital Course: This is an 83-year-old male. Date of admission 08/25/2018. Past medical includes atrial fibrillation with history of cardioversion, chronic apixaban use, hypertension, hyperlipidemia, trigeminal neuralgia/hard of hearing : Bilateral hearing aids. For the past 4 days, patient been increasing short of breath increased malaise. Denies any sick contacts or recent travels. Unknown influenza status. Patient is to [facility] with worsening shortness of breath. Complains of pleuritic and musculoskeletal chest pain. Patient also has a prior history of tobacco abuse times 50 years quit 15 years ago. Patient called EMS for evaluation due to acute shortness of breath. Upon arrival, patient was noted to be in a rapid heart rate in the 150s. Patient was given acute bronchodilator therapy and started on a lidocaine drip for possible V. tach. Patient was transported to [facility] for further evaluation treatment. Upon arrival, patient was noted to be in A. fib with RVR. Chest x-ray revealed bilateral infiltrates right greater than left. Patient was placed on BiPAP therapy with some improvement. Patient received ceftriaxone and azithromycin. 3 L normal saline. Patient remained somewhat hypotensive. Patient a lactate of 5.1. Troponin 0 0.27. Patient was transported to [facility]. On arrival, patient increasingly short of breath. Required intubation with central line placement and arterial line placement. SUBJECTIVE: 08/26: Currently resting in bed intubated requiring mechanical ventilation. Arousable and does follow commands but heart rate much better controlled rate. No acute findings overnight. Leukocytosis slightly worsened. Potassium replaced currently. Arousable and does follow commands. at bedside and updated Wilma. 08/27: Patient on low-dose (2 mcg) levo overnight, off since this morning. Low urine output over the past 24 hours. HR well-controlled in 70s-80s. 08/28: Patient tolerated PST yesterday afternoon, placed back on AC overnight to rest. Urine output improved with lasix/ Chavez was noted to be clogged with sediment and replaced. No new issues. 08/29: Extubated yesterday, on bipap through the afternoon/ evening (patient is on nocturnal CPAP at home). BP persistently elevated, now on cardene gtt. 08/30: On BiPAP overnight. Currently on facemask O2. Sitting up in chair, not in any acute distress. 08/31: Critical care reconsulted this morning due to free air noted under the diaphragm on routine chest x-ray. When I evaluated the patient he was resting in bed on nasal cannula. No hypotension overnight. He did have a BM yesterday he has been having vague abdominal discomfort. He appears more lethargic and delirious yesterday according to his . Patient was drowsy but easily arousable however appeared encephalopathic. He did not appear to be in any acute distress however on examination of his abdomen did grimace some guarding. He did receive Eliquis this morning. On review of CT done on 09/05 patient appears to have free intraperitoneal air. This was discussed with Dr. Richards. Plan was made for exploratory laparotomy Maurice. I did order K Centra for Eliquis reversal per discussion with Dr. Richards. Also spoke with patient's regarding concern regarding perforated viscus and need for emergency surgery she voiced understanding. Patient is on Unasyn and being followed by ID. Ordered normal saline IV fluids and made patient n.p.o. 09/07: Extubated yesterday but breathing a little labored this morning. Respiratory rate around 30 with some accessory muscle use. Lung joel generally clear with a few scattered rhonchi on the right side. No wheezing. No crackles. We tried BiPAP noninvasive ventilation and he was much more comfortable and promptly went to sleep. Although gas exchange is acceptable his work of breathing is clearly excessive without support. Objective Vital Signs / I&O: Vital Signs 09/06/18 18:00 09/06/18 19:00 09/06/18 19:40 Temperature 97.7 F 97.7 F Pulse Rate 80 79 Respiratory Rate 25 H 29 H Blood Pressure Pulse Oximetry 93 L 91 L 96 09/06/18 19:50 09/06/18 20:00 09/06/18 20:24 Temperature 97.9 F 98.1 F Pulse Rate 83 84 78 Respiratory Rate 32 H 29 H 26 H Blood Pressure 113/82 Pulse Oximetry 91 L 99 09/06/18 20:49 09/06/18 21:00 09/06/18 21:10 Temperature 98.1 F 98.1 F 98.1 F Pulse Rate 81 82 88 Respiratory Rate 27 H 24 30 H Blood Pressure 107/67 116/56 L 119/58 L Pulse Oximetry 100 100 100 09/06/18 22:00 09/06/18 22:10 09/06/18 23:00 Temperature 98.4 F 98.4 F 98.8 F Pulse Rate 85 90 82 Respiratory Rate 28 H 33 H 29 H Blood Pressure 113/87 Pulse Oximetry 98 97 100 09/06/18 23:10 09/07/18 00:00 09/07/18 00:10 Temperature 98.8 F 99.0 F 99.0 F Pulse Rate 85 87 80 Respiratory Rate 29 H 29 H 28 H Blood Pressure 119/58 L 82/66 L Pulse Oximetry 92 L 96 99 09/07/18 00:59 09/07/18 01:00 09/07/18 02:00 Temperature 99.1 F 99.1 F 99.3 F Pulse Rate 86 83 90 Respiratory Rate 35 H 27 H 26 H Blood Pressure 125/55 L Pulse Oximetry 97 97 98 09/07/18 02:27 09/07/18 02:45 09/07/18 03:00 Temperature 99.3 F 99.3 F 99.3 F Pulse Rate 86 85 85 Respiratory Rate 28 H 24 29 H Blood Pressure 89/55 L 113/71 Pulse Oximetry 100 99 100 09/07/18 03:29 09/07/18 03:30 09/07/18 04:00 Temperature 99.3 F 99.3 F Pulse Rate 90 94 H 88 Respiratory Rate 26 H 24 26 H Blood Pressure 107/57 L 113/58 L Pulse Oximetry 97 93 L 09/07/18 04:30 09/07/18 05:00 09/07/18 05:30 Temperature 99.3 F 99.3 F 99.3 F Pulse Rate 91 H 99 H 93 H Respiratory Rate 24 32 H 28 H Blood Pressure 100/56 L 106/58 L 103/63 Pulse Oximetry 92 L 97 95 09/07/18 06:00 09/07/18 06:30 09/07/18 07:00 Temperature 99.5 F 99.5 F 99.5 F Pulse Rate 91 H 92 H 92 H Respiratory Rate 26 H 24 30 H Blood Pressure 108/59 L 96/52 L 91/66 L Pulse Oximetry 99 100 100 09/07/18 07:30 09/07/18 07:37 09/07/18 07:40 Temperature 99.3 F Pulse Rate 94 H 90 Respiratory Rate 32 H 28 H Blood Pressure 111/61 Pulse Oximetry 100 100 09/07/18 08:00 09/07/18 08:30 09/07/18 09:00 Temperature 99.3 F Pulse Rate 92 H 95 H 92 H Respiratory Rate 30 H 30 H 27 H Blood Pressure 106/62 111/68 119/67 Pulse Oximetry 98 100 100 09/07/18 09:30 09/07/18 10:00 09/07/18 10:30 Temperature Pulse Rate 97 H 94 H 91 H Respiratory Rate 30 H 28 H 27 H Blood Pressure 114/63 114/59 L 101/62 Pulse Oximetry 100 97 09/07/18 11:00 09/07/18 11:14 09/07/18 11:30 Temperature Pulse Rate 93 H 104 H 103 H Respiratory Rate 28 H 28 H 32 H Blood Pressure 104/62 110/67 Pulse Oximetry 92 L 99 09/07/18 12:00 09/07/18 12:30 09/07/18 13:00 Temperature Pulse Rate 102 H 98 H 95 H Respiratory Rate 31 H 26 H 28 H Blood Pressure 106/67 112/73 101/73 Pulse Oximetry 92 L 93 L 09/07/18 13:15 09/07/18 13:30 09/07/18 14:00 Temperature Pulse Rate 90 95 H Respiratory Rate 16 27 H 26 H Blood Pressure 104/67 116/72 Pulse Oximetry 91 L 97 09/07/18 14:30 09/07/18 15:16 Temperature Pulse Rate 92 H 102 H Respiratory Rate 28 H 24 Blood Pressure 160/79 H Pulse Oximetry 92 L Intake & Output 09/06/18 09/07/18 09/07/18 18:59 06:59 18:59 Intake Total 3340 / 3340 1515 / 1515 300 / 300 Output Total 565 / 565 610 / 610 Balance 2775 / 2775 905 / 905 300 / 300 Weight 110.1 kg Intake: IV 1840 / 1840 1515 / 1515 300 / 300 D5W Inj 1,000 ML @ 75 mls/hr IV 950 / 950 .CONT .[id number] [facility] Rx#:[id number] Neosynephrine Inj 40 MG In D5W 120 / 120 Inj 496 ML @ 40 MCG/MIN 30 mls/ hr IV.CONT TITRATE PRN Rx#: [id number] Diprivan 1000 mg/100 ml Inj 1, 20 / 20 000 mg In 100 ml @ 5 MCG/KG/MIN 3.255 mls/hr IV.CONT TITRATE PRN Rx#:[id number] Ofirmev Inj 1,000 mg In 100 ml 100 / 100 200 / 200 @ 400 mls/hr IV.SIG Q6H [facility] Rx# :[id number] Unasyn Inj 3 GM In NS Inj 100 100 / 100 ML @ 200 mls/hr IV.SIG Q6H [facility] Rx#:[id number] Azithromycin Inj 500 MG In NS 250 / 250 Inj 250 ML @ 250 mls/hr IV.SIG Q24H [facility] Rx#:[id number] Diflucan 400 mg Premix Bag 200 200 / 200 ML @ 0 mls/hr IV.SIG .STK-MED ONE Rx#:[id number] LR 1000 mL Inj 500 ML @ 500 mls 500 / 500 /hr IV.SIG .Q1H ONE Rx#: [id number] Zosyn 4.5 GM Premix 4.5 gm In 100 / 100 200 / 200 100 ml @ 200 mls/hr IV.SIG Q6H [facility] Rx#:[id number] Vancomycin Inj 1,500 MG In NS 515 / 515 Inj 500 ML @ 250 mls/hr IV.SIG Q18H [facility] Rx#:[id number] Flagyl 500 MG Inj 100 ML @ 100 100 / 100 200 / 200 100 / 100 mls/hr IV.SIG Q6H [facility] Rx#: [id number] Anesthesia Amount 1500 / 1500 Output: Estimated Blood Loss 100 / 100 Urine Amount (Catheter) 450 / 450 600 / 600 Indwelling Urethral Catheter 450 / 450 600 / 600 Wound Drainage # 1 Left Lower Abdomen Other: Date of Last Bowel Movement 09/05/18 09/05/18 Result Diagrams: 09/07/18 06:18 09/07/18 06:18 Objective Remarks: GENERAL: Ill-appearing, lying in bed in moderate respiratory distress SKIN: Warm and dry. HEENT: NCAT, PERRL. Perioral herpetic lesions. NECK: Trachea midline. No JVD. Left IJ CVL is clean dry and intact CARDIOVASCULAR: Irregular, regular rate. No JVD RESPIRATORY: Improved breath sounds at the bases with BiPAP, rhonchi right side , moderate accessory muscle use, tachypnea. GASTROINTESTINAL: Abdomen soft, vague tenderness all over with minimal guarding , bowel sounds present. MUSCULOSKELETAL: 2+ pitting edema in all extremities NEUROLOGICAL: Exhausted, lethargic, easily arousable. Encephalopathic, moving both upper extremities with purpose. Swallows safely and control his airway well. Assessment and Plan - Problem List (1) Acute respiratory failure with hypoxia and hypercapnia Code(s): J96.01 - Acute respiratory failure with hypoxia; J96.02 - Acute respiratory failure with hypercapnia Status: Acute (2) Hyponatremia Code(s): E87.1 - Hypo-osmolality and hyponatremia Status: Acute (3) Lactic acidosis Code(s): E87.2 - Acidosis Status: Acute (4) Atrial fibrillation with rapid ventricular response Code(s): I48.91 - Unspecified atrial fibrillation Status: Acute (5) Acute kidney injury Code(s): N17.9 - Acute kidney failure, unspecified Status: Acute (6) Chronic steroid use Status: Chronic (7) Hypertension Code(s): I10 - Essential (primary) hypertension Status: Chronic (8) Hyperlipidemia Code(s): E78.5 - Hyperlipidemia, unspecified Status: Chronic (9) Hard of hearing Code(s): H91.90 - Unspecified hearing loss, unspecified ear Status: Chronic (10) Trigeminal neuralgia Code(s): G50.0 - Trigeminal neuralgia Status: Chronic (11) Chronic anticoagulation Code(s): Z79.01 - termite treater (current) use of anticoagulants Status: Chronic (12) Leukocytosis Code(s): D72.829 - Elevated white blood cell count, unspecified Status: Acute (13) Elevated troponin Code(s): R74.8 - Abnormal levels of other serum enzymes Status: Acute (14) Hypoalbuminemia Code(s): E88.09 - Other disorders of plasma-protein metabolism, not elsewhere classified Status: Acute - Assessment and Plan Plan: Neuro/Psych: Hard of hearing Acetaminophen 650 mg by tube every 6 hours as needed fever Delirium precautions (lights on/ shades up during the day, limit nighttime disruptions, frequent reorientation, use hearing aids) CV: Atrial fibrillation with rapid ventricular response currently rate controlled Elevated troponin History of essential hypertension Hyperlipidemia Lactic acidosis Trop 0.27 on admission, most recent 0.08, no longer trending Echo: EF 45%, RV enlargement/ dysfunction, PAP 38 mm Hg On beta-tristian Resp: Acute respiratory failure secondary to community acquired pneumonia History of COPD 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 Hold diuretics. Endo: Acute hyperglycemia Chronic steroid use Low TSH SSI TSH was 0.094, normal T4, T3 low-- would recheck in 4 weeks after critical illness has resolved Renal: WESLEY BID lasix dosing, hold No urine eosinophils noted Renal ultrasound - bilateral renal cyst. Possible hemorrhagic left renal cyst Avoid nephrotoxic medication Monitor urine output Accurate I's and O's Heme: Monitor CBC. Eliquis will be held. Ordered Kcentra for Eliquis reversal prior to Elap 09/06 ID: Community acquired pneumonia Perforated viscus Blood cultures from 08/25 grew Haemophilus influenza sensitive to penicillins/ cephalosporins, s/p ceftriaxone Repeat blood cultures sent on 08/27 negative thus far Sputum and urine cultures no growth to date Flu and MRSA swabs negative Legionella and pneumococcus negative ID following for antibiotic management. On IV Unasyn. MSK: Elevated BMI PT evaluate and treat Weight loss encouraged FEN: Hypokalemia ICU electrolyte protocol Prophylaxis -GI -pantoprazole -DVT -SCD/apixaban will be held for exploratory laparotomy. Restart when okay with surgical service Overall impression: Severe chronic lung disease, particularly impressive involving the right lower lung. Gas exchange compromised and work of breathing increased. He is critically ill and is required BiPAP noninvasive ventilation for an unstable respiratory problem. Critical care time 38 minutes (7) Hypertension Qualifiers: Hypertension type: essential hypertension Qualified Code(s): I10 - Essential (primary) hypertension (8) Hyperlipidemia Qualifiers: Hyperlipidemia type: unspecified Qualified Code(s): E78.5 - Hyperlipidemia, unspecified (9) Hard of hearing Qualifiers: Hearing loss type: unspecified Laterality: bilateral Qualified Code(s): H91.93 - Unspecified hearing loss, bilateral (12) Leukocytosis Qualifiers: Leukocytosis type: unspecified Qualified Code(s): D72.829 - Elevated white blood cell count, unspecified
[2018-09-07] MEDS ORDERED: Phenol 1.4% 180 ML Spray Bottle OROPHARYNG PRN (17:44)
--- NOTE | 2018-09-07 18:11 | ECHRPT ---
Indication: HEART FAILURE CONCLUSIONS The left ventricular systolic function is normal with an estimated ejection fraction in the range of 55-60%. Mild concentric left ventricular hypertrophy. The right ventricle is mildly dilated. The right ventricular systoilc function is mildly decreased. Trace mitral valve regurgitation. Trace aortic valve regurgitation. There is trace tricuspid valve regurgitation. BP: / HR: Rhythm: MEASUREMENTS (Male / Female) Normal Values Technical Quality: 2D ECHO LV Diastolic Diameter PLAX 4.7 cm 4.2 - 5.9 / 3.9 - 5.3 cm LV Systolic Diameter PLAX 3.4 cm IVS Diastolic Thickness 1.2 cm 0.6 - 1.0 / 0.6 - 0.9 cm LVPW Diastolic Thickness 1.0 cm 0.6 - 1.0 / 0.6 - 0.9 cm LV Relative Wall Thickness 0.5 RV Internal Dim ED PLAX 1.9 cm LA Systolic Diameter LX 4.4 cm 3.0 - 4.0 / 2.7 - 3.8 cm DOPPLER Mitral E Point Velocity 85.1 cm/s TR Peak Velocity 220.0 cm/s TR Peak Gradient 19.4 mmHg FINDINGS LEFT VENTRICLE Normal left ventricular size. Mild concentric left ventricular hypertrophy. The left ventricular systolic function is normal with an estimated ejection fraction in the range of 55-60%. This study was not technically sufficient to allow for evaluation of left ventricular diastolic func tion. RIGHT VENTRICLE The right ventricle is mildly dilated. The right ventricular systoilc function is mildly decreased. LEFT ATRIUM The left atrial size is mildly dilated. RIGHT ATRIUM The right atrial size is normal. ATRIAL SEPTUM Normal atrial septal thickness AORTA The aortic root and proximal ascending aorta are normal in size on limited imaging. MITRAL VALVE Mild mitral annular calcification. Trace mitral valve regurgitation. No mitral valve stenosis. AORTIC VALVE Aortic valve sclerosis is present. Mild thickening of the aortic valve leaflets. Trace aortic valve regurgitation. No aortic valve stenosis. TRICUSPID VALVE Structurally normal tricuspid valve. There is trace tricuspid valve regurgitation. The estimated pulmonary arterial pressure is 24 mmHg. PULMONARY VALVE The pulmonary valve is not well visualized. VESSELS The inferior vena cava is normal in size. PERICARDIUM No pericardial effusion. Edi Villafana DO (Electronically Signed) Final Date:07 September 2018 18:09
--- NOTE | 2018-09-07 18:53 | P.PN ---
Subjective Interval history: Patient awake and trying to speak. at bedside. Physical Exam Vital signs: Vital Signs 09/06/18 19:00 09/06/18 19:40 09/06/18 19:50 Temperature 97.7 F 97.9 F Pulse Rate 79 83 Respiratory Rate 29 H 32 H Blood Pressure 113/82 Pulse Oximetry 91 L 96 91 L 09/06/18 20:00 09/06/18 20:24 09/06/18 20:49 Temperature 98.1 F 98.1 F Pulse Rate 84 78 81 Respiratory Rate 29 H 26 H 27 H Blood Pressure 107/67 Pulse Oximetry 99 100 09/06/18 21:00 09/06/18 21:10 09/06/18 22:00 Temperature 98.1 F 98.1 F 98.4 F Pulse Rate 82 88 85 Respiratory Rate 24 30 H 28 H Blood Pressure 116/56 L 119/58 L Pulse Oximetry 100 100 98 09/06/18 22:10 09/06/18 23:00 09/06/18 23:10 Temperature 98.4 F 98.8 F 98.8 F Pulse Rate 90 82 85 Respiratory Rate 33 H 29 H 29 H Blood Pressure 113/87 119/58 L Pulse Oximetry 97 100 92 L 09/07/18 00:00 09/07/18 00:10 09/07/18 00:59 Temperature 99.0 F 99.0 F 99.1 F Pulse Rate 87 80 86 Respiratory Rate 29 H 28 H 35 H Blood Pressure 82/66 L 125/55 L Pulse Oximetry 96 99 97 09/07/18 01:00 09/07/18 02:00 09/07/18 02:27 Temperature 99.1 F 99.3 F 99.3 F Pulse Rate 83 90 86 Respiratory Rate 27 H 26 H 28 H Blood Pressure 89/55 L Pulse Oximetry 97 98 100 09/07/18 02:45 09/07/18 03:00 09/07/18 03:29 Temperature 99.3 F 99.3 F Pulse Rate 85 85 90 Respiratory Rate 24 29 H 26 H Blood Pressure 113/71 Pulse Oximetry 99 100 09/07/18 03:30 09/07/18 04:00 09/07/18 04:30 Temperature 99.3 F 99.3 F 99.3 F Pulse Rate 94 H 88 91 H Respiratory Rate 24 26 H 24 Blood Pressure 107/57 L 113/58 L 100/56 L Pulse Oximetry 97 93 L 92 L 09/07/18 05:00 09/07/18 05:30 09/07/18 06:00 Temperature 99.3 F 99.3 F 99.5 F Pulse Rate 99 H 93 H 91 H Respiratory Rate 32 H 28 H 26 H Blood Pressure 106/58 L 103/63 108/59 L Pulse Oximetry 97 95 99 09/07/18 06:30 09/07/18 07:00 09/07/18 07:30 Temperature 99.5 F 99.5 F 99.3 F Pulse Rate 92 H 92 H 94 H Respiratory Rate 24 30 H 32 H Blood Pressure 96/52 L 91/66 L 111/61 Pulse Oximetry 100 100 100 09/07/18 07:37 09/07/18 07:40 09/07/18 08:00 Temperature 99.3 F Pulse Rate 90 92 H Respiratory Rate 28 H 30 H Blood Pressure 106/62 Pulse Oximetry 100 98 09/07/18 08:30 09/07/18 09:00 09/07/18 09:30 Temperature Pulse Rate 95 H 92 H 97 H Respiratory Rate 30 H 27 H 30 H Blood Pressure 111/68 119/67 114/63 Pulse Oximetry 100 100 09/07/18 10:00 09/07/18 10:30 09/07/18 11:00 Temperature Pulse Rate 94 H 91 H 93 H Respiratory Rate 28 H 27 H 28 H Blood Pressure 114/59 L 101/62 104/62 Pulse Oximetry 100 97 92 L 09/07/18 11:14 09/07/18 11:30 09/07/18 12:00 Temperature Pulse Rate 104 H 103 H 102 H Respiratory Rate 28 H 32 H 31 H Blood Pressure 110/67 106/67 Pulse Oximetry 99 09/07/18 12:30 09/07/18 13:00 09/07/18 13:15 Temperature Pulse Rate 98 H 95 H Respiratory Rate 26 H 28 H 16 Blood Pressure 112/73 101/73 Pulse Oximetry 92 L 93 L 09/07/18 13:30 09/07/18 14:00 09/07/18 14:30 Temperature Pulse Rate 90 95 H 92 H Respiratory Rate 27 H 26 H 28 H Blood Pressure 104/67 116/72 160/79 H Pulse Oximetry 91 L 97 92 L 09/07/18 15:00 09/07/18 15:16 09/07/18 15:30 Temperature Pulse Rate 90 102 H 97 H Respiratory Rate 25 H 24 33 H Blood Pressure 109/72 121/75 Pulse Oximetry 100 100 09/07/18 16:00 09/07/18 16:30 09/07/18 17:00 Temperature Pulse Rate 96 H 96 H 94 H Respiratory Rate 26 H 23 23 Blood Pressure 110/67 111/58 L Pulse Oximetry 100 100 100 09/07/18 17:30 09/07/18 18:00 09/07/18 18:30 Temperature Pulse Rate 91 H 94 H 101 H Respiratory Rate 26 H 28 H 41 H Blood Pressure 120/74 116/93 H 125/67 Pulse Oximetry 100 98 88 L Intake & Output 09/06/18 09/07/18 09/07/18 18:59 06:59 18:59 Intake Total 3340 / 3340 1515 / 1515 300 / 300 Output Total 565 / 565 610 / 610 Balance 2775 / 2775 905 / 905 300 / 300 Weight 110.1 kg Intake: IV 1840 / 1840 1515 / 1515 300 / 300 D5W Inj 1,000 ML @ 75 mls/hr IV 950 / 950 .CONT .[id number] BRIANNA Rx#:[id number] Neosynephrine Inj 40 MG In D5W 120 / 120 Inj 496 ML @ 40 MCG/MIN 30 mls/ hr IV.CONT TITRATE PRN Rx#: [id number] Diprivan 1000 mg/100 ml Inj 1, 20 / 20 000 mg In 100 ml @ 5 MCG/KG/MIN 3.255 mls/hr IV.CONT TITRATE PRN Rx#:[id number] Ofirmev Inj 1,000 mg In 100 ml 100 / 100 200 / 200 @ 400 mls/hr IV.SIG Q6H BRIANNA Rx# :[id number] Unasyn Inj 3 GM In NS Inj 100 100 / 100 ML @ 200 mls/hr IV.SIG Q6H BRIANNA Rx#:[id number] Azithromycin Inj 500 MG In NS 250 / 250 Inj 250 ML @ 250 mls/hr IV.SIG Q24H BRIANNA Rx#:[id number] Diflucan 400 mg Premix Bag 200 200 / 200 ML @ 0 mls/hr IV.SIG .STK-MED ONE Rx#:[id number] LR 1000 mL Inj 500 ML @ 500 mls 500 / 500 /hr IV.SIG .Q1H ONE Rx#: [id number] Zosyn 4.5 GM Premix 4.5 gm In 100 / 100 200 / 200 100 ml @ 200 mls/hr IV.SIG Q6H BRIANNA Rx#:[id number] Vancomycin Inj 1,500 MG In NS 515 / 515 Inj 500 ML @ 250 mls/hr IV.SIG Q18H BRIANNA Rx#:[id number] Flagyl 500 MG Inj 100 ML @ 100 100 / 100 200 / 200 100 / 100 mls/hr IV.SIG Q6H BRIANNA Rx#: [id number] Anesthesia Amount 1500 / 1500 Output: Estimated Blood Loss 100 / 100 Urine Amount (Catheter) 450 / 450 600 / 600 Indwelling Urethral Catheter 450 / 450 600 / 600 Wound Drainage # 1 Left Lower Abdomen Other: Date of Last Bowel Movement 09/05/18 09/05/18 - Constitutional no acute distress - Routine HEENT Exam ENT: Present: mucous membranes dry - Routine Respiratory Exam Present: decreased breath sounds - Routine Cardiovascular Exam Present: RRR - Routine Abdominal Exam Present: soft, wound (Dressing intact with old drainage present) - Urinary Catheter Management Indwelling Temp Sensing Catheter Cath placed during this visit: yes, but has since been removed by the nurse Reason for continuing: Decision to DC catheter Insertion date: 08/25/18 Insertion time: 14:20 Removal date: 08/29/18 Removal time: 12:30 Indwelling Urethral Catheter Cath placed during this visit: yes Reason for continuing: Hourly intake/output Insertion date: 09/06/18 Insertion time: 12:00 Results - Labs CBC & Chem 7: 09/07/18 06:18 09/07/18 06:18 Laboratory Results - last 24 hr 09/06/18 09/06/18 09/06/18 12:46 18:30 18:30 WBC 27.9 H RBC 3.39 L Hgb 10.5 L Hct 32.5 L MCV 95.7 MCH 31.1 MCHC 32.5 RDW 15.1 Plt Count 231 MPV 9.8 Neut % (Auto) 95.6 H Lymph % (Auto) 1.6 L [place] % (Auto) 2.6 Eos % (Auto) 0.0 Baso % (Auto) 0.2 Neut # (Auto) 26.7 H Lymph # (Auto) 0.5 L [place] # (Auto) 0.7 Eos # (Auto) 0.0 Baso # (Auto) 0.0 WBC Differential . Differential Comment Auto diff final Puncture Site Patient Temperature O2 Saturation ABG pH ABG pCO2 ABG pO2 ABG HCO3 ABG O2 Content ABG Base Excess ABG Methemoglobin Hemoglobin Carboxyhemoglobin O2 Delivery Device Liter Flow Critical Value Sodium 147 H Potassium 3.6 Chloride 113 H Carbon Dioxide 27.3 Anion Gap 7 BUN 31 H Creatinine 0.90 Estimated GFR 81 L POC Glucose Random Glucose 159 H Lactic Acid Calcium 8.4 L Total Bilirubin 0.9 AST 18 ALT 22 Alkaline Phosphatase 56 Total Protein 4.6 L D Albumin 1.8 L Blood Type O Positive Antibody Screen Negative MTS Gel Crossmatch See Detail Bld Prod Order Comment 09/06/18 09/06/18 09/06/18 18:30 18:57 19:18 WBC RBC Hgb Hct MCV MCH MCHC RDW Plt Count MPV Neut % (Auto) Lymph % (Auto) [place] % (Auto) Eos % (Auto) Baso % (Auto) Neut # (Auto) Lymph # (Auto) [place] # (Auto) Eos # (Auto) Baso # (Auto) WBC Differential Differential Comment Puncture Site Art line Patient Temperature 98.6 O2 Saturation 87 L* ABG pH 7.44 H ABG pCO2 38 ABG pO2 56 L* ABG HCO3 25 ABG O2 Content 12.1 ABG Base Excess 1.7 ABG Methemoglobin 1.4 Hemoglobin 9.8 L Carboxyhemoglobin 2.0 O2 Delivery Device Nasal cannula Liter Flow 4.00 Critical Value Yes Sodium Potassium Chloride Carbon Dioxide Anion Gap BUN Creatinine Estimated GFR POC Glucose 129 H Random Glucose Lactic Acid 1.5 Calcium Total Bilirubin AST ALT Alkaline Phosphatase Total Protein Albumin Blood Type Antibody Screen MTS Gel Crossmatch Bld Prod Order Comment 09/06/18 09/07/18 09/07/18 23:15 05:32 06:18 WBC RBC Hgb Hct MCV MCH MCHC RDW Plt Count MPV Neut % (Auto) Lymph % (Auto) [place] % (Auto) Eos % (Auto) Baso % (Auto) Neut # (Auto) Lymph # (Auto) [place] # (Auto) Eos # (Auto) Baso # (Auto) WBC Differential Differential Comment Puncture Site Patient Temperature O2 Saturation ABG pH ABG pCO2 ABG pO2 ABG HCO3 ABG O2 Content ABG Base Excess ABG Methemoglobin Hemoglobin Carboxyhemoglobin O2 Delivery Device Liter Flow Critical Value Sodium 147 H Potassium 3.6 Chloride 110 H Carbon Dioxide 30.3 Anion Gap 7 BUN 30 H Creatinine 1.04 Estimated GFR 68 L POC Glucose 144 H 130 H Random Glucose 151 H Lactic Acid Calcium 8.3 L Total Bilirubin 0.8 AST 22 ALT 19 Alkaline Phosphatase 51 Total Protein 4.5 L Albumin 1.7 L Blood Type Antibody Screen MTS Gel Crossmatch Bld Prod Order Comment 09/07/18 09/07/18 06:18 12:51 WBC 22.2 H RBC 3.18 L Hgb 10.3 L Hct 30.6 L MCV 96.1 MCH 32.3 MCHC 33.6 RDW 15.5 Plt Count 217 MPV 9.9 Neut % (Auto) 93.8 H Lymph % (Auto) 2.0 L [place] % (Auto) 3.2 Eos % (Auto) 0.2 Baso % (Auto) 0.8 Neut # (Auto) 20.9 H Lymph # (Auto) 0.4 L [place] # (Auto) 0.7 Eos # (Auto) 0.0 Baso # (Auto) 0.2 WBC Differential . Differential Comment Auto diff final Puncture Site Patient Temperature O2 Saturation ABG pH ABG pCO2 ABG pO2 ABG HCO3 ABG O2 Content ABG Base Excess ABG Methemoglobin Hemoglobin Carboxyhemoglobin O2 Delivery Device Liter Flow Critical Value Sodium Potassium Chloride Carbon Dioxide Anion Gap BUN Creatinine Estimated GFR POC Glucose 144 H Random Glucose Lactic Acid Calcium Total Bilirubin AST ALT Alkaline Phosphatase Total Protein Albumin Blood Type Antibody Screen MTS Gel Crossmatch Bld Prod Order Comment - Imaging Impressions Abdomen/Pelvis CT 09/07/18 00:00 CONCLUSION: 1. Status post recent abdominal surgery with free air throughout the abdomen. 2. Mild air-filled loops of small bowel suggestive of a postoperative ileus. 3. Otherwise no other significant changes are seen compared to the prior exam. 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 Needs to stay in ISC for today and likely tomorrow. - Plan Discussed Condition With: Patient Nurse Radha - Attending Attestation I attest that I had a [id number] encounter with the patient on the same day, and personally performed and documented my assessment and findings in the medical record. The following services were provided during this hospital visit: Chart data review, vital sign assessments/reviewing monitor data Review of consultation notes if present Medication orders/review and/or management Ordering and/or reviewing lab tests Ordering and/or interpreting/reviewing x-rays and/or diagnostic studies Care of the patient and discussion of the patient with the care team Documentation time To help prompt me to consider important information that might be impacting today's encounter and assessment, Information from prior notes written by myself or my colleagues may have been "brought forward/copy and pasted" into today's note.
[2018-09-07] MEDS: Potassium Chlor 20 mEq Premix 20 MEQ/100 ML PIGGYBACK IV.SIG PRN ×2 (21:00→23:22)
[2018-09-07] MEDS ORDERED: Calcium Chloride Inj 1 GM/10 ML Syringe IV.PUSH ONE (21:15)
[2018-09-07] MEDS ORDERED: Calcium Chloride Inj 1 GM in Sodium Chlor 0.9% Inj 100 ML IV.SIG ONE (23:00)
[2018-09-08] MEDS: Insulin NovoLOG Aspart Correctional Sugar Inj SQ SCH ×4 (00:20→18:29)
[2018-09-08] MEDS: Oral Hygiene Kit OROPHARYNG SCH ×4 (04:25→15:58)
[2018-09-08] MEDS: Piperacil/Tazo 4.5 GM Premix 4.5 GM/100 ML BAG IV.SIG SCH ×4 (04:56→23:03)
[2018-09-08 05:21] LABS: Baso # (Auto) 0.1 th/mm3 (0.0-0.2); Baso % (Auto) 0.5 % (0.0-2.0); Eos # (Auto) 0.1 th/mm3 (0.0-0.4); Eos % (Auto) 0.3 % (0.0-4.0); Hematocrit 30.9 % (39.0-51.0); Lymph # (Auto) 0.4 th/mm3 (1.0-4.8); Lymph % (Auto) 2.1 % (9.0-44.0); Mean Corpuscular HGB Conc 32.4 % (32.0-36.0); Mean Corpuscular Hemoglobin 31.5 pg (27.0-34.0); Mean Corpuscular Volume 97.4 fL (80.0-100.0); Mono # (Auto) 0.6 th/mm3 (0.0-0.9); Mono % (Auto) 2.7 % (0.0-8.0); Neut # (Auto) 19.7 th/mm3 (1.8-7.7); Neut % (Auto) 94.4 % (16.0-70.0); Platelet Count 209 th/mm3 (150-450); Red Blood Count 3.17 mil/mm3 (4.50-5.90); Red Cell Distribution Width 15.9 % (11.6-17.2); White Blood Count 20.9 th/mm3 (4.0-11.0)
[2018-09-08 05:34] LABS: Alanine Aminotransferase 23 U/L (12-78); Albumin 1.6 g/dL (3.4-5.0); Anion Gap 5 meq/L (5-15); Aspartate Aminotransferase 24 U/L (15-37); Blood Urea Nitrogen 26 mg/dL (7-18); Calcium 8.8 mg/dL (8.5-10.1); Carbon Dioxide 30.5 meq/L (21.0-32.0); Chloride 111 meq/L (98-107); Glomerular Filtration Rate 65 mL/min (>89); Glucose,Random 104 mg/dL (74-106); Magnesium 2.5 mg/dL (1.5-2.5); Potassium 3.8 meq/L (3.5-5.1); Sodium 146 meq/L (136-145)
[2018-09-08 05:40] LABS: Alkaline Phosphatase 56 U/L (45-117)
[2018-09-08] MEDS: Vancomycin Inj 1,500 MG in Sodium Chlor 0.9% Inj 500 ML IV.SIG SCH (06:36)
[2018-09-08] MEDS: Artificial Tears Opth Drops 15 ML Bottle EACH EYE SCH ×3 (06:37→23:04)
[2018-09-08] MEDS: Baclofen 10 MG Tablet NG/OG PRN (08:19)
[2018-09-08] MEDS: predniSONE 10 MG Tablet PO SCH (08:38)
[2018-09-08] MEDS: Lactobacillus Acidophilus/L. Spores Tablet PO SCH ×2 (08:39→21:34)
[2018-09-08] MEDS: Senna/Docusate Sodium 8.6/50 MG Tablet PO SCH ×2 (08:40→21:33)
--- NOTE | 2018-09-08 09:42 | P.PNPL ---
Subjective Interval history: Patient is lying in bed in NAD. On 4L oxygen. Afebrile. Physical Exam Vital signs: Vital Signs 09/07/18 10:00 09/07/18 10:30 09/07/18 11:00 Temperature Pulse Rate 94 H 91 H 93 H Respiratory Rate 28 H 27 H 28 H Blood Pressure 114/59 L 101/62 104/62 Pulse Oximetry 100 97 92 L 09/07/18 11:14 09/07/18 11:30 09/07/18 12:00 Temperature Pulse Rate 104 H 103 H 102 H Respiratory Rate 28 H 32 H 31 H Blood Pressure 110/67 106/67 Pulse Oximetry 99 09/07/18 12:30 09/07/18 13:00 09/07/18 13:15 Temperature Pulse Rate 98 H 95 H Respiratory Rate 26 H 28 H 16 Blood Pressure 112/73 101/73 Pulse Oximetry 92 L 93 L 09/07/18 13:30 09/07/18 14:00 09/07/18 14:30 Temperature Pulse Rate 90 95 H 92 H Respiratory Rate 27 H 26 H 28 H Blood Pressure 104/67 116/72 160/79 H Pulse Oximetry 91 L 97 92 L 09/07/18 15:00 09/07/18 15:16 09/07/18 15:30 Temperature Pulse Rate 90 102 H 97 H Respiratory Rate 25 H 24 33 H Blood Pressure 109/72 121/75 Pulse Oximetry 100 100 09/07/18 16:00 09/07/18 16:30 09/07/18 17:00 Temperature Pulse Rate 96 H 96 H 94 H Respiratory Rate 26 H 23 23 Blood Pressure 110/67 111/58 L Pulse Oximetry 100 100 100 09/07/18 17:30 09/07/18 18:00 09/07/18 18:30 Temperature Pulse Rate 91 H 94 H 101 H Respiratory Rate 26 H 28 H 41 H Blood Pressure 120/74 116/93 H 125/67 Pulse Oximetry 100 98 88 L 09/07/18 19:00 09/07/18 19:30 09/07/18 20:00 Temperature 98.6 F Pulse Rate 95 H 95 H 89 Respiratory Rate 14 28 H 24 Blood Pressure 123/71 112/62 115/69 Pulse Oximetry 99 100 96 09/07/18 20:30 09/07/18 21:00 12/01/18 21:30 Temperature Pulse Rate 95 H 96 H 87 Respiratory Rate 33 H 33 H 17 Blood Pressure 111/58 L 115/63 94/54 L Pulse Oximetry 97 100 100 09/07/18 22:00 09/07/18 22:30 09/07/18 23:00 Temperature Pulse Rate 92 H 84 80 Respiratory Rate 26 H 24 16 Blood Pressure 98/66 L 101/58 L 85/52 L Pulse Oximetry 100 100 100 09/07/18 23:19 09/07/18 23:28 09/07/18 23:30 Temperature Pulse Rate 84 95 H 89 Respiratory Rate 24 33 H 24 Blood Pressure 100/63 104/62 110/64 Pulse Oximetry 100 91 L 97 09/08/18 00:00 09/08/18 00:13 09/08/18 00:14 Temperature 98.6 F Pulse Rate 83 88 Respiratory Rate 24 22 Blood Pressure 113/60 Pulse Oximetry 100 100 09/08/18 00:30 09/08/18 01:00 09/08/18 01:30 Temperature Pulse Rate 90 86 90 Respiratory Rate 22 22 20 Blood Pressure 127/59 L 103/65 116/75 Pulse Oximetry 100 100 100 09/08/18 02:00 09/08/18 02:30 09/08/18 03:00 Temperature Pulse Rate 96 H 98 H 93 H Respiratory Rate 24 24 24 Blood Pressure 105/68 95/54 L 126/73 Pulse Oximetry 100 100 99 09/08/18 03:30 09/08/18 03:50 09/08/18 04:00 Temperature 98.6 F Pulse Rate 86 76 88 Respiratory Rate 24 20 26 H Blood Pressure 123/75 109/78 Pulse Oximetry 98 96 96 09/08/18 04:30 09/08/18 05:00 09/08/18 05:30 Temperature Pulse Rate 92 H 95 H 90 Respiratory Rate 24 25 H 24 Blood Pressure 122/67 129/78 121/71 Pulse Oximetry 97 96 100 09/08/18 06:00 09/08/18 06:30 09/08/18 07:00 Temperature Pulse Rate 100 H 87 92 H Respiratory Rate 39 H 23 25 H Blood Pressure 128/98 H 122/78 137/84 Pulse Oximetry 84 L 95 98 09/08/18 07:30 09/08/18 07:42 09/08/18 08:00 Temperature 97.5 F L Pulse Rate 89 98 H 98 H Respiratory Rate 22 22 21 Blood Pressure 125/64 133/65 Pulse Oximetry 96 100 100 09/08/18 08:30 Temperature Pulse Rate 94 H Respiratory Rate 28 H Blood Pressure 141/64 H Pulse Oximetry 97 Intake & Output 09/07/18 09/08/18 09/08/18 18:59 06:59 18:59 Intake Total 1015 / 1015 1010 / 1010 Output Total 750 / 750 902 / 902 Balance 265 / 265 108 / 108 Weight 110.4 kg Intake: IV 1015 / 1015 1010 / 1010 Ofirmev Inj 1,000 mg In 100 ml 200 / 200 100 / 100 @ 400 mls/hr IV.SIG Q6H BRIANNA Rx# :[id number] Calcium Chloride Inj 1 GM In NS 110 / 110 Inj 100 ML @ 110 mls/hr IV.SIG ONCE ONE Rx#:[id number] Magnesium Sulfate Inj 2 GM In 100 / 100 NS Inj 96 ML @ 50 mls/hr IV.SIG UNSCH PRN Rx#:[id number] Zosyn 4.5 GM Premix 4.5 gm In 100 / 100 300 / 300 100 ml @ 200 mls/hr IV.SIG Q6H BRIANNA Rx#:[id number] KCl 20 mEq Premix Inj 20 meq In 200 / 200 100 ml @ 50 mls/hr IV.SIG Q2H PRN Rx#:[id number] Vancomycin Inj 1,500 MG In NS 515 / 515 Inj 500 ML @ 250 mls/hr IV.SIG Q18H BRIANNA Rx#:[id number] Flagyl 500 MG Inj 100 ML @ 100 200 / 200 200 / 200 mls/hr IV.SIG Q6H BRIANNA Rx#: [id number] Output: Urine Amount (Catheter) 650 / 650 600 / 600 Indwelling Urethral Catheter 650 / 650 600 / 600 Gastric Drainage 100 / 100 Left Nare 100 / 100 Wound Drainage 302 / 302 # 1 Left Lower Abdomen 302 / 302 Other: Date of Last Bowel Movement 09/05/18 - Constitutional no acute distress, obese - Routine HEENT Exam Head: Present: normocephalic, atraumatic Eye: Present: EOMI, PERRL, normal accommodation ENT: Present: mucous membranes moist - Routine Neck Exam Present: supple, full ROM, trachea midline - Routine Respiratory Exam Present: CTA bilaterally - Routine Cardiovascular Exam Present: RRR, S1, S2 - Routine Abdominal Exam Present: soft, normoactive bowel sounds, distended - Routine Extremities Exam Present: edema, pulses intact - Routine Neurological Exam Present: alert, oriented X3, CN II-XII intact - Urinary Catheter Management Indwelling Temp Sensing Catheter Cath placed during this visit: yes, but has since been removed by the nurse Reason for continuing: Decision to DC catheter Insertion date: 08/25/18 Insertion time: 14:20 Removal date: 08/29/18 Removal time: 12:30 Indwelling Urethral Catheter Cath placed during this visit: yes Reason for continuing: Hourly intake/output Insertion date: 09/06/18 Insertion time: 12:00 Assessment and Plan - Assessment (1) Acute respiratory failure with hypoxia and hypercapnia Code(s): J96.01 - Acute respiratory failure with hypoxia; J96.02 - Acute respiratory failure with hypercapnia Status: Acute (2) Hyponatremia Code(s): E87.1 - Hypo-osmolality and hyponatremia Status: Acute (3) Lactic acidosis Code(s): E87.2 - Acidosis Status: Acute (4) Atrial fibrillation with rapid ventricular response Code(s): I48.91 - Unspecified atrial fibrillation Status: Acute (5) Acute kidney injury Code(s): N17.9 - Acute kidney failure, unspecified Status: Acute (6) Chronic steroid use Status: Chronic (7) Hypertension Code(s): I10 - Essential (primary) hypertension Status: Chronic Qualifiers: Hypertension type: essential hypertension Qualified Code(s): I10 - Essential (primary) hypertension (8) Hyperlipidemia Code(s): E78.5 - Hyperlipidemia, unspecified Status: Chronic Qualifiers: Hyperlipidemia type: unspecified Qualified Code(s): E78.5 - Hyperlipidemia , unspecified (9) Hard of hearing Code(s): H91.90 - Unspecified hearing loss, unspecified ear Status: Chronic Qualifiers: Hearing loss type: unspecified Laterality: bilateral Qualified Code(s): H91.93 - Unspecified hearing loss, bilateral (10) Trigeminal neuralgia Code(s): G50.0 - Trigeminal neuralgia Status: Chronic (11) Chronic anticoagulation Code(s): Z79.01 - [facility] (current) use of anticoagulants Status: Chronic (12) Leukocytosis Code(s): D72.829 - Elevated white blood cell count, unspecified Status: Acute Qualifiers: Leukocytosis type: unspecified Qualified Code(s): D72.829 - Elevated white blood cell count, unspecified (13) Elevated troponin Code(s): R74.8 - Abnormal levels of other serum enzymes Status: Acute (14) Hypoalbuminemia Code(s): E88.09 - Other disorders of plasma-protein metabolism, not elsewhere classified Status: Acute - Plan 1)Resp Insuff 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 4) Haemophilus Influenza bacteremia 08/25 5) JAMES 6)Perforated viscus s/p Open exploratory laparotomy, Right hemicolectomy, Primary anastomosis and washout 7)Leukocytosis Plan Wean down oxygen as zulma keep sats >92% Bronchodilators ( DuoNeb, Breo) Check CXR in am Home CPAP ,FIO2 28 % HS EzPAP with Nebs qid. On Prednisone 10mg daily Continue abx per ID ( On Vanoc, Zosyn, Flagyl, Azithromycin, top Acyclovir ) monitor for signs of infections ( Fever, WBC) Diurese with Lasix 40mg IV x1 for fluid overload GI/DVT prophylaxis- On Eliquis 5mg BID Echo showed EF 55-60% Continue treatment plan. Discussed with patient's and nursing staff
[2018-09-08] MEDS: Chlorhexidine 0.12% Oral Kit 15 ML UDC OROPHARYNG SCH ×2 (09:55→21:33)
--- NOTE | 2018-09-08 11:03 | P.PNNP ---
Subjective Interval history: Sitting up in bed. No acute events overnight. Has cough and having difficulty bringing secretions up. <Jenny Perez - Last Filed: 09/08/18 10:57> Physical Exam Vital signs: Vital Signs 09/07/18 11:00 09/07/18 11:14 09/07/18 11:30 Temperature Pulse Rate 93 H 104 H 103 H Respiratory Rate 28 H 28 H 32 H Blood Pressure 104/62 110/67 Pulse Oximetry 92 L 99 09/07/18 12:00 09/07/18 12:30 09/07/18 13:00 Temperature Pulse Rate 102 H 98 H 95 H Respiratory Rate 31 H 26 H 28 H Blood Pressure 106/67 112/73 101/73 Pulse Oximetry 92 L 93 L 09/07/18 13:15 09/07/18 13:30 09/07/18 14:00 Temperature Pulse Rate 90 95 H Respiratory Rate 16 27 H 26 H Blood Pressure 104/67 116/72 Pulse Oximetry 91 L 97 09/07/18 14:30 09/07/18 15:00 09/07/18 15:16 Temperature Pulse Rate 92 H 90 102 H Respiratory Rate 28 H 25 H 24 Blood Pressure 160/79 H 109/72 Pulse Oximetry 92 L 100 09/07/18 15:30 09/07/18 16:00 09/07/18 16:30 Temperature Pulse Rate 97 H 96 H 96 H Respiratory Rate 33 H 26 H 23 Blood Pressure 121/75 110/67 Pulse Oximetry 100 100 100 09/07/18 17:00 09/07/18 17:30 09/07/18 18:00 Temperature Pulse Rate 94 H 91 H 94 H Respiratory Rate 23 26 H 28 H Blood Pressure 111/58 L 120/74 116/93 H Pulse Oximetry 100 100 98 09/07/18 18:30 09/07/18 19:00 09/07/18 19:30 Temperature Pulse Rate 101 H 95 H 95 H Respiratory Rate 41 H 14 28 H Blood Pressure 125/67 123/71 112/62 Pulse Oximetry 88 L 99 100 09/07/18 20:00 09/07/18 20:30 09/07/18 21:00 Temperature 98.6 F Pulse Rate 89 95 H 96 H Respiratory Rate 24 33 H 33 H Blood Pressure 115/69 111/58 L 115/63 Pulse Oximetry 96 97 100 09/07/18 21:30 09/07/18 22:00 09/07/18 22:30 Temperature Pulse Rate 87 92 H 84 Respiratory Rate 17 26 H 24 Blood Pressure 94/54 L 98/66 L 101/58 L Pulse Oximetry 100 100 100 09/07/18 23:00 09/07/18 23:19 09/07/18 23:28 Temperature Pulse Rate 80 84 95 H Respiratory Rate 16 24 33 H Blood Pressure 85/52 L 100/63 104/62 Pulse Oximetry 100 100 91 L 09/07/18 23:30 09/08/18 00:00 09/08/18 00:13 Temperature 98.6 F Pulse Rate 89 83 88 Respiratory Rate 24 24 22 Blood Pressure 110/64 113/60 Pulse Oximetry 97 100 09/08/18 00:14 09/08/18 00:30 09/08/18 01:00 Temperature Pulse Rate 90 86 Respiratory Rate 22 22 Blood Pressure 127/59 L 103/65 Pulse Oximetry 100 100 100 09/08/18 01:30 09/08/18 02:00 09/08/18 02:30 Temperature Pulse Rate 90 96 H 98 H Respiratory Rate 20 24 24 Blood Pressure 116/75 105/68 95/54 L Pulse Oximetry 100 100 100 09/08/18 03:00 09/08/18 03:30 09/08/18 03:50 Temperature Pulse Rate 93 H 86 76 Respiratory Rate 24 24 20 Blood Pressure 126/73 123/75 Pulse Oximetry 99 98 96 09/08/18 04:00 09/08/18 04:30 09/08/18 05:00 Temperature 98.6 F Pulse Rate 88 92 H 95 H Respiratory Rate 26 H 24 25 H Blood Pressure 109/78 122/67 129/78 Pulse Oximetry 96 97 96 09/08/18 05:30 09/08/18 06:00 09/08/18 06:30 Temperature Pulse Rate 90 100 H 87 Respiratory Rate 24 39 H 23 Blood Pressure 121/71 128/98 H 122/78 Pulse Oximetry 100 84 L 95 09/08/18 07:00 09/08/18 07:30 09/08/18 07:42 Temperature Pulse Rate 92 H 89 98 H Respiratory Rate 25 H 22 22 Blood Pressure 137/84 125/64 Pulse Oximetry 98 96 100 09/08/18 08:00 12/02/18 08:30 09/08/18 09:00 Temperature 97.5 F L Pulse Rate 98 H 94 H 96 H Respiratory Rate 21 28 H 27 H Blood Pressure 133/65 141/64 H 138/72 Pulse Oximetry 100 97 99 09/08/18 09:30 Temperature Pulse Rate 96 H Respiratory Rate 22 Blood Pressure 107/77 Pulse Oximetry 100 Intake & Output 09/07/18 09/08/18 09/08/18 18:59 06:59 18:59 Intake Total 1015 / 1015 1010 / 1010 Output Total 750 / 750 902 / 902 Balance 265 / 265 108 / 108 Weight 110.4 kg Intake: IV 1015 / 1015 1010 / 1010 Ofirmev Inj 1,000 mg In 100 ml 200 / 200 100 / 100 @ 400 mls/hr IV.SIG Q6H BRIANNA Rx# :[id number] Calcium Chloride Inj 1 GM In NS 110 / 110 Inj 100 ML @ 110 mls/hr IV.SIG ONCE ONE Rx#:[id number] Magnesium Sulfate Inj 2 GM In 100 / 100 NS Inj 96 ML @ 50 mls/hr IV.SIG UNSCH PRN Rx#:[id number] Zosyn 4.5 GM Premix 4.5 gm In 100 / 100 300 / 300 100 ml @ 200 mls/hr IV.SIG Q6H BRIANNA Rx#:[id number] KCl 20 mEq Premix Inj 20 meq In 200 / 200 100 ml @ 50 mls/hr IV.SIG Q2H PRN Rx#:[id number] Vancomycin Inj 1,500 MG In NS 515 / 515 Inj 500 ML @ 250 mls/hr IV.SIG Q18H BRIANNA Rx#:[id number] Flagyl 500 MG Inj 100 ML @ 100 200 / 200 200 / 200 mls/hr IV.SIG Q6H BRIANNA Rx#: [id number] Output: Urine Amount (Catheter) 650 / 650 600 / 600 Indwelling Urethral Catheter 650 / 650 600 / 600 Gastric Drainage 100 / 100 Left Nare 100 / 100 Wound Drainage 302 / 302 # 1 Left Lower Abdomen 302 / 302 Other: Date of Last Bowel Movement 09/05/18 Narrative: GENERAL: Awake, responds to commands. at bedside. 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 No JVD. CARDIOVASCULAR: Irregular rate and rhythm without murmurs, gallops, or rubs. RESPIRATORY: Breath sounds equal bilaterally. Rhonchi present and cough. No accessory muscle use. GASTROINTESTINAL: Abdomen large. GENITOURINARY: indwelling Chavez catheter MUSCULOSKELETAL: No cyanosis. +2 bilateral lower extremity edema BACK: Nontender without obvious deformity. No CVA tenderness. - Urinary Catheter Management Indwelling Temp Sensing Catheter Cath placed during this visit: yes, but has since been removed by the nurse Reason for continuing: Decision to DC catheter Insertion date: 08/25/18 Insertion time: 14:20 Removal date: 08/29/18 Removal time: 12:30 Indwelling Urethral Catheter Cath placed during this visit: yes Reason for continuing: Hourly intake/output Insertion date: 09/06/18 Insertion time: 12:00 <Jenny Perez - Last Filed: 09/08/18 10:57> Vital signs: Vital Signs 09/08/18 22:00 09/08/18 23:00 09/08/18 23:43 Temperature Pulse Rate 82 87 87 Respiratory Rate 18 21 23 Blood Pressure 102/62 Pulse Oximetry 98 94 L 99 09/09/18 00:00 09/09/18 01:00 09/09/18 01:27 Temperature 98.6 F Pulse Rate 85 77 98 H Respiratory Rate 19 18 22 Blood Pressure 104/60 104/60 Pulse Oximetry 99 100 100 09/09/18 02:00 09/09/18 02:21 09/09/18 03:00 Temperature Pulse Rate 90 84 90 Respiratory Rate 28 H 20 22 Blood Pressure 99/63 L 106/59 L Pulse Oximetry 85 L 99 100 09/09/18 03:14 09/09/18 04:00 09/09/18 04:30 Temperature 98.6 F Pulse Rate 86 81 94 H Respiratory Rate 20 16 18 Blood Pressure 124/78 126/66 Pulse Oximetry 100 100 09/09/18 04:32 09/09/18 05:00 09/09/18 06:00 Temperature Pulse Rate 96 H 91 H Respiratory Rate 31 H 25 H Blood Pressure 120/75 Pulse Oximetry 95 84 L 99 09/09/18 06:03 09/09/18 07:00 09/09/18 08:00 Temperature 97.7 F Pulse Rate 91 H 83 87 Respiratory Rate 21 18 19 Blood Pressure 135/72 99/60 L Pulse Oximetry 99 94 L 99 09/09/18 08:22 09/09/18 08:51 09/09/18 09:00 Temperature Pulse Rate 88 82 87 Respiratory Rate 28 H 20 21 Blood Pressure 110/65 106/72 Pulse Oximetry 100 100 09/09/18 10:00 09/09/18 11:00 09/09/18 12:00 Temperature 97.6 F Pulse Rate 93 H 87 85 Respiratory Rate 19 18 17 Blood Pressure 129/65 117/74 103/64 Pulse Oximetry 96 99 100 09/09/18 12:10 09/09/18 13:00 09/09/18 14:00 Temperature Pulse Rate 88 106 H 93 H Respiratory Rate 20 31 H 20 Blood Pressure 126/95 H 109/70 Pulse Oximetry 87 L 91 L 09/09/18 15:00 09/09/18 16:00 09/09/18 16:08 Temperature 97.9 F Pulse Rate 81 93 H 89 Respiratory Rate 17 25 H 17 Blood Pressure 123/76 133/79 Pulse Oximetry 97 95 09/09/18 17:00 09/09/18 18:00 09/09/18 19:00 Temperature Pulse Rate 93 H 94 H 95 H Respiratory Rate 22 20 22 Blood Pressure 116/66 112/63 112/66 Pulse Oximetry 94 L 95 94 L 09/09/18 20:00 09/09/18 20:35 09/09/18 21:00 Temperature Pulse Rate 96 H Respiratory Rate 16 Blood Pressure Pulse Oximetry 97 97 Intake & Output 09/09/18 09/09/18 09/10/18 06:59 18:59 06:59 Intake Total 1300 / 1300 300 / 300 Output Total 1000 / 1000 850 / 850 Balance 300 / 300 -550 / -550 Weight 111.5 kg Intake: IV 1300 / 1300 300 / 300 D5W Inj 1,000 ML @ 50 mls/hr IV 900 / 900 .CONT .Q20H BRIANNA Rx#:[id number] Zosyn 4.5 GM Premix 4.5 gm In 200 / 200 100 / 100 100 ml @ 200 mls/hr IV.SIG Q6H BRIANNA Rx#:[id number] Flagyl 500 MG Inj 100 ML @ 100 200 / 200 200 / 200 mls/hr IV.SIG Q6H BRIANNA Rx#: [id number] Output: Stool 300 / 300 Urine Amount (Catheter) 800 / 800 550 / 550 Indwelling Urethral Catheter 800 / 800 550 / 550 Wound Drainage 200 / 200 # 1 Left Lower Abdomen 200 / 200 Other: Date of Last Bowel Movement 09/05/18 09/05/18 - Urinary Catheter Management Indwelling Temp Sensing Catheter Cath placed during this visit: no Indwelling Urethral Catheter Cath placed during this visit: no <Anuj Valdes - Last Filed: 09/09/18 21:44> Assessment and Plan - Assessment (1) Hypernatremia Code(s): E87.0 - Hyperosmolality and hypernatremia Status: Acute Plan: Sodium continues to improve 146. On D5W at 50 ml/hr., he is NPO and has NGT suction. Avoid nephrotoxic agents. Monitor urine output. Monitor for hyperglycemia, if patient develops hyperglycemia, osmotic diuresis will worsen hypernatremia. (2) Leukocytosis Code(s): D72.829 - Elevated white blood cell count, unspecified Status: Acute Qualifiers: Leukocytosis type: unspecified Qualified Code(s): D72.829 - Elevated white blood cell count, unspecified Plan: Has been diagnosed with pneumonia. Also is on steroids. (3) Pneumonia Code(s): J18.9 - Pneumonia, unspecified organism Status: Acute Qualifiers: Pneumonia type: due to unspecified organism Laterality: bilateral Lung location: unspecified part of lung Qualified Code(s): J18.9 - Pneumonia, unspecified organism Plan: Continue antibiotics, ID following. <Jenny Perez - Last Filed: 09/08/18 10:57> - Assessment (1) Hypernatremia Code(s): E87.0 - Hyperosmolality and hypernatremia Status: Acute Plan: Patient seen and examined, agree with above. Sodium is continue to improve, on D5W. (2) Leukocytosis Code(s): D72.829 - Elevated white blood cell count, unspecified Status: Acute Qualifiers: Leukocytosis type: unspecified Qualified Code(s): D72.829 - Elevated white blood cell count, unspecified (3) Pneumonia Code(s): J18.9 - Pneumonia, unspecified organism Status: Acute Qualifiers: Pneumonia type: due to unspecified organism Laterality: bilateral Lung location: unspecified part of lung Qualified Code(s): J18.9 - Pneumonia, unspecified organism <Anuj Valdes - Last Filed: 09/09/18 21:44>
--- NOTE | 2018-09-08 12:02 | P.PNGS ---
Subjective Patient reports: no bowel movement (bipap yesterday, low uop better with lasix, james increase) Physical Exam Vital signs: Vital Signs 09/07/18 12:00 09/07/18 12:30 09/07/18 13:00 Temperature Pulse Rate 102 H 98 H 95 H Respiratory Rate 31 H 26 H 28 H Blood Pressure 106/67 112/73 101/73 Pulse Oximetry 92 L 93 L 09/07/18 13:15 09/07/18 13:30 09/07/18 14:00 Temperature Pulse Rate 90 95 H Respiratory Rate 16 27 H 26 H Blood Pressure 104/67 116/72 Pulse Oximetry 91 L 97 09/07/18 14:30 09/07/18 15:00 09/07/18 15:16 Temperature Pulse Rate 92 H 90 102 H Respiratory Rate 28 H 25 H 24 Blood Pressure 160/79 H 109/72 Pulse Oximetry 92 L 100 09/07/18 15:30 09/07/18 16:00 09/07/18 16:30 Temperature Pulse Rate 97 H 96 H 96 H Respiratory Rate 33 H 26 H 23 Blood Pressure 121/75 110/67 Pulse Oximetry 100 100 100 09/07/18 17:00 09/07/18 17:30 09/07/18 18:00 Temperature Pulse Rate 94 H 91 H 94 H Respiratory Rate 23 26 H 28 H Blood Pressure 111/58 L 120/74 116/93 H Pulse Oximetry 100 100 98 09/07/18 18:30 09/07/18 19:00 09/07/18 19:30 Temperature Pulse Rate 101 H 95 H 95 H Respiratory Rate 41 H 14 28 H Blood Pressure 125/67 123/71 112/62 Pulse Oximetry 88 L 99 100 09/07/18 20:00 09/07/18 20:30 09/07/18 21:00 Temperature 98.6 F Pulse Rate 89 95 H 96 H Respiratory Rate 24 33 H 33 H Blood Pressure 115/69 111/58 L 115/63 Pulse Oximetry 96 97 100 09/07/18 21:30 09/07/18 22:00 09/07/18 22:30 Temperature Pulse Rate 87 92 H 84 Respiratory Rate 17 26 H 24 Blood Pressure 94/54 L 98/66 L 101/58 L Pulse Oximetry 100 100 100 09/07/18 23:00 09/07/18 23:19 09/07/18 23:28 Temperature Pulse Rate 80 84 95 H Respiratory Rate 16 24 33 H Blood Pressure 85/52 L 100/63 104/62 Pulse Oximetry 100 100 91 L 09/07/18 23:30 09/08/18 00:00 09/08/18 00:13 Temperature 98.6 F Pulse Rate 89 83 88 Respiratory Rate 24 24 22 Blood Pressure 110/64 113/60 Pulse Oximetry 97 100 09/08/18 00:14 09/08/18 00:30 09/08/18 01:00 Temperature Pulse Rate 90 86 Respiratory Rate 22 22 Blood Pressure 127/59 L 103/65 Pulse Oximetry 100 100 100 09/08/18 01:30 09/08/18 02:00 09/08/18 02:30 Temperature Pulse Rate 90 96 H 98 H Respiratory Rate 20 24 24 Blood Pressure 116/75 105/68 95/54 L Pulse Oximetry 100 100 100 09/08/18 03:00 09/08/18 03:30 09/08/18 03:50 Temperature Pulse Rate 93 H 86 76 Respiratory Rate 24 24 20 Blood Pressure 126/73 123/75 Pulse Oximetry 99 98 96 09/08/18 04:00 09/08/18 04:30 09/08/18 05:00 Temperature 98.6 F Pulse Rate 88 92 H 95 H Respiratory Rate 26 H 24 25 H Blood Pressure 109/78 122/67 129/78 Pulse Oximetry 96 97 96 09/08/18 05:30 09/08/18 06:00 09/08/18 06:30 Temperature Pulse Rate 90 100 H 87 Respiratory Rate 24 39 H 23 Blood Pressure 121/71 128/98 H 122/78 Pulse Oximetry 100 84 L 95 09/08/18 07:00 09/08/18 07:30 09/08/18 07:42 Temperature Pulse Rate 92 H 89 98 H Respiratory Rate 25 H 22 22 Blood Pressure 137/84 125/64 Pulse Oximetry 98 96 100 09/08/18 08:00 09/08/18 08:30 09/08/18 09:00 Temperature 97.5 F L Pulse Rate 98 H 94 H 96 H Respiratory Rate 21 28 H 27 H Blood Pressure 133/65 141/64 H 138/72 Pulse Oximetry 100 97 99 09/08/18 09:30 09/08/18 11:14 Temperature Pulse Rate 96 H 86 Respiratory Rate 22 26 H Blood Pressure 107/77 Pulse Oximetry 100 Intake & Output 09/07/18 09/08/18 09/08/18 18:59 06:59 18:59 Intake Total 1015 / 1015 1010 / 1010 Output Total 750 / 750 902 / 902 Balance 265 / 265 108 / 108 Weight 110.4 kg Intake: IV 1015 / 1015 1010 / 1010 Ofirmev Inj 1,000 mg In 100 ml 200 / 200 100 / 100 @ 400 mls/hr IV.SIG Q6H BRIANNA Rx# :[id number] Calcium Chloride Inj 1 GM In NS 110 / 110 Inj 100 ML @ 110 mls/hr IV.SIG ONCE ONE Rx#:[id number] Magnesium Sulfate Inj 2 GM In 100 / 100 NS Inj 96 ML @ 50 mls/hr IV.SIG UNSCH PRN Rx#:[id number] Zosyn 4.5 GM Premix 4.5 gm In 100 / 100 300 / 300 100 ml @ 200 mls/hr IV.SIG Q6H BRIANNA Rx#:[id number] KCl 20 mEq Premix Inj 20 meq In 200 / 200 100 ml @ 50 mls/hr IV.SIG Q2H PRN Rx#:[id number] Vancomycin Inj 1,500 MG In NS 515 / 515 Inj 500 ML @ 250 mls/hr IV.SIG Q18H BRIANNA Rx#:[id number] Flagyl 500 MG Inj 100 ML @ 100 200 / 200 200 / 200 mls/hr IV.SIG Q6H BRIANNA Rx#: [id number] Output: Urine Amount (Catheter) 650 / 650 600 / 600 Indwelling Urethral Catheter 650 / 650 600 / 600 Gastric Drainage 100 / 100 Left Nare 100 / 100 Wound Drainage 302 / 302 # 1 Left Lower Abdomen 302 / 302 Other: Date of Last Bowel Movement 09/05/18 - Routine Respiratory Exam Present: diminished air movement - Routine Abdominal Exam Present: soft (jaiden dry blood, james serosang) - Urinary Catheter Management Indwelling Temp Sensing Catheter Cath placed during this visit: yes, but has since been removed by the nurse Reason for continuing: Decision to DC catheter Insertion date: 08/25/18 Insertion time: 14:20 Removal date: 08/29/18 Removal time: 12:30 Indwelling Urethral Catheter Cath placed during this visit: yes Reason for continuing: Hourly intake/output Insertion date: 09/06/18 Insertion time: 12:00 Results - Labs 09/08/18 04:20 09/08/18 04:20 Laboratory Results - last 24 hr 09/07/18 09/07/18 09/08/18 12:51 18:51 00:09 WBC RBC Hgb Hct MCV MCH MCHC RDW Plt Count MPV Neut % (Auto) Lymph % (Auto) Swisher % (Auto) Eos % (Auto) Baso % (Auto) Neut # (Auto) Lymph # (Auto) Swisher # (Auto) Eos # (Auto) Baso # (Auto) WBC Differential Differential Comment Sodium Potassium Chloride Carbon Dioxide Anion Gap BUN Creatinine Estimated GFR POC Glucose 144 H 110 120 H Random Glucose Calcium Magnesium Total Bilirubin AST ALT Alkaline Phosphatase Total Protein Albumin 09/08/18 09/08/18 04:20 04:20 WBC 20.9 H RBC 3.17 L Hgb 10.0 L Hct 30.9 L MCV 97.4 MCH 31.5 MCHC 32.4 RDW 15.9 Plt Count 209 MPV 10.0 Neut % (Auto) 94.4 H Lymph % (Auto) 2.1 L Swisher % (Auto) 2.7 Eos % (Auto) 0.3 Baso % (Auto) 0.5 Neut # (Auto) 19.7 H Lymph # (Auto) 0.4 L Swisher # (Auto) 0.6 Eos # (Auto) 0.1 Baso # (Auto) 0.1 WBC Differential . Differential Comment Auto diff final Sodium 146 H Potassium 3.8 Chloride 111 H Carbon Dioxide 30.5 Anion Gap 5 BUN 26 H Creatinine 1.09 Estimated GFR 65 L POC Glucose Random Glucose 104 Calcium 8.8 Magnesium 2.5 Total Bilirubin 0.8 AST 24 ALT 23 Alkaline Phosphatase 56 Total Protein 5.0 L Albumin 1.6 L - Imaging Imaging: ITS Impressions Abdomen/Bladder Ultrasound 08/25/18 00:00 CONCLUSION: 1. No evidence of hydronephrosis. 2. Bilateral renal cysts, mostly simple, with one cyst demonstrating homogeneous low level echoes, located in the midpole the left kidney and measuring 4 cm. Venous Doppler Study 08/25/18 00:00 CONCLUSION: 1. The study is negative for bilateral lower extremity deep venous thrombosis. Chest CT 09/05/18 00:00 CONCLUSION: 1. 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 2. Right lower lobe cavitary mass. 3. Probably benign left adrenal lesion Head CT 09/05/18 00:00 CONCLUSION: 1. No acute intracranial abnormalities. . Chest X-Ray 09/06/18 00:00 CONCLUSION: Free intraperitoneal air. Cardiomegaly. Bilateral areas of consolidation being worse on the right. This information was relayed to Nathaniel, the patient's nurse by telephone. Abdomen/Pelvis CT 09/07/18 00:00 CONCLUSION: 1. Status post recent abdominal surgery with free air throughout the abdomen. 2. Mild air-filled loops of small bowel suggestive of a postoperative ileus. 3. Otherwise no other significant changes are seen compared to the prior exam. 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
[2018-09-08] MEDS: Pantoprazole Inj 40 MG Vial IV.PUSH SCH (12:04)
[2018-09-08] MEDS: Azithromycin Inj 500 MG in Sodium Chlor 0.9% Inj 250 ML IV.SIG SCH (12:21)
[2018-09-08] MEDS: Dextrose 5% in Water Inj 1,000 ML IV.CONT SCH (12:54)
--- NOTE | 2018-09-08 14:00 | P.PNCC ---
Subjective Subjective Remarks/Hospital Course: This is an 83-year-old male. Date of admission 08/25/2018. Past medical includes atrial fibrillation with history of cardioversion, chronic apixaban use, hypertension, hyperlipidemia, trigeminal neuralgia/hard of hearing : Bilateral hearing aids. For the past 4 days, patient been increasing short of breath increased malaise. Denies any sick contacts or recent travels. Unknown influenza status. Patient is to [facility] with worsening shortness of breath. Complains of pleuritic and musculoskeletal chest pain. Patient also has a prior history of tobacco abuse times 50 years quit 15 years ago. Patient called EMS for evaluation due to acute shortness of breath. Upon arrival, patient was noted to be in a rapid heart rate in the 150s. Patient was given acute bronchodilator therapy and started on a lidocaine drip for possible V. tach. Patient was transported to [facility] for further evaluation treatment. Upon arrival, patient was noted to be in A. fib with RVR. Chest x-ray revealed bilateral infiltrates right greater than left. Patient was placed on BiPAP therapy with some improvement. Patient received ceftriaxone and azithromycin. 3 L normal saline. Patient remained somewhat hypotensive. Patient a lactate of 5.1. Troponin 0 0.27. Patient was transported to [facility]. On arrival, patient increasingly short of breath. Required intubation with central line placement and arterial line placement. SUBJECTIVE: 08/26: Currently resting in bed intubated requiring mechanical ventilation. Arousable and does follow commands but heart rate much better controlled rate. No acute findings overnight. Leukocytosis slightly worsened. Potassium replaced currently. Arousable and does follow commands. at bedside and updated Wilma. 08/27: Patient on low-dose (2 mcg) levo overnight, off since this morning. Low urine output over the past 24 hours. HR well-controlled in 70s-80s. 08/28: Patient tolerated PST yesterday afternoon, placed back on AC overnight to rest. Urine output improved with lasix/ Chavez was noted to be clogged with sediment and replaced. No new issues. 08/29: Extubated yesterday, on bipap through the afternoon/ evening (patient is on nocturnal CPAP at home). BP persistently elevated, now on cardene gtt. 08/30: On BiPAP overnight. Currently on facemask O2. Sitting up in chair, not in any acute distress. 08/31: Critical care reconsulted this morning due to free air noted under the diaphragm on routine chest x-ray. When I evaluated the patient he was resting in bed on nasal cannula. No hypotension overnight. He did have a BM yesterday he has been having vague abdominal discomfort. He appears more lethargic and delirious yesterday according to his . Patient was drowsy but easily arousable however appeared encephalopathic. He did not appear to be in any acute distress however on examination of his abdomen did grimace some guarding. He did receive Eliquis this morning. On review of CT done on 09/05 patient appears to have free intraperitoneal air. This was discussed with Dr. Richards. Plan was made for exploratory laparotomy Maurice. I did order K Centra for Eliquis reversal per discussion with Dr. Richards. Also spoke with patient's regarding concern regarding perforated viscus and need for emergency surgery she voiced understanding. Patient is on Unasyn and being followed by ID. Ordered normal saline IV fluids and made patient n.p.o. 09/07: Extubated yesterday but breathing a little labored this morning. Respiratory rate around 30 with some accessory muscle use. Lung joel generally clear with a few scattered rhonchi on the right side. No wheezing. No crackles. We tried BiPAP noninvasive ventilation and he was much more comfortable and promptly went to sleep. Although gas exchange is acceptable his work of breathing is clearly excessive without support. 09/08: Extubated 48 hours ago. Comfortable on BiPAP noninvasive ventilation but labored when off. Fluid balance not particularly problematic, but most of respiratory difficulty appears to be the mobilization of secretions. Objective Vital Signs / I&O: Vital Signs 09/07/18 14:00 09/07/18 14:30 09/07/18 15:00 Temperature Pulse Rate 95 H 92 H 90 Respiratory Rate 26 H 28 H 25 H Blood Pressure 116/72 160/79 H 109/72 Pulse Oximetry 97 92 L 100 09/07/18 15:16 09/07/18 15:30 09/07/18 16:00 Temperature Pulse Rate 102 H 97 H 96 H Respiratory Rate 24 33 H 26 H Blood Pressure 121/75 Pulse Oximetry 100 100 09/07/18 16:30 09/07/18 17:00 09/07/18 17:30 Temperature Pulse Rate 96 H 94 H 91 H Respiratory Rate 23 23 26 H Blood Pressure 110/67 111/58 L 120/74 Pulse Oximetry 100 100 100 09/07/18 18:00 09/07/18 18:30 09/07/18 19:00 Temperature Pulse Rate 94 H 101 H 95 H Respiratory Rate 28 H 41 H 14 Blood Pressure 116/93 H 125/67 123/71 Pulse Oximetry 98 88 L 99 09/07/18 19:30 09/07/18 20:00 09/07/18 20:30 Temperature 98.6 F Pulse Rate 95 H 89 95 H Respiratory Rate 28 H 24 33 H Blood Pressure 112/62 115/69 111/58 L Pulse Oximetry 100 96 97 09/07/18 21:00 09/07/18 21:30 09/07/18 22:00 Temperature Pulse Rate 96 H 87 92 H Respiratory Rate 33 H 17 26 H Blood Pressure 115/63 94/54 L 98/66 L Pulse Oximetry 100 100 100 09/07/18 22:30 09/07/18 23:00 09/07/18 23:19 Temperature Pulse Rate 84 80 84 Respiratory Rate 24 16 24 Blood Pressure 101/58 L 85/52 L 100/63 Pulse Oximetry 100 100 100 09/07/18 23:28 09/07/18 23:30 02 00:00 Temperature 98.6 F Pulse Rate 95 H 89 83 Respiratory Rate 33 H 24 24 Blood Pressure 104/62 110/64 113/60 Pulse Oximetry 91 L 97 100 09/08/18 00:13 09/08/18 00:14 09/08/18 00:30 Temperature Pulse Rate 88 90 Respiratory Rate 22 22 Blood Pressure 127/59 L Pulse Oximetry 100 100 09/08/18 01:00 09/08/18 01:30 09/08/18 02:00 Temperature Pulse Rate 86 90 96 H Respiratory Rate 22 20 24 Blood Pressure 103/65 116/75 105/68 Pulse Oximetry 100 100 100 09/08/18 02:30 09/08/18 03:00 09/08/18 03:30 Temperature Pulse Rate 98 H 93 H 86 Respiratory Rate 24 24 24 Blood Pressure 95/54 L 126/73 123/75 Pulse Oximetry 100 99 98 09/08/18 03:50 09/08/18 04:00 09/08/18 04:30 Temperature 98.6 F Pulse Rate 76 88 92 H Respiratory Rate 20 26 H 24 Blood Pressure 109/78 122/67 Pulse Oximetry 96 96 97 09/08/18 05:00 09/08/18 05:30 09/08/18 06:00 Temperature Pulse Rate 95 H 90 100 H Respiratory Rate 25 H 24 39 H Blood Pressure 129/78 121/71 128/98 H Pulse Oximetry 96 100 84 L 09/08/18 06:30 09/08/18 07:00 09/08/18 07:30 Temperature Pulse Rate 87 92 H 89 Respiratory Rate 23 25 H 22 Blood Pressure 122/78 137/84 125/64 Pulse Oximetry 95 98 96 09/08/18 07:42 09/08/18 08:00 09/08/18 08:30 Temperature 97.5 F L Pulse Rate 98 H 98 H 94 H Respiratory Rate 22 21 28 H Blood Pressure 133/65 141/64 H Pulse Oximetry 100 100 97 09/08/18 09:00 09/08/18 09:30 09/08/18 10:00 Temperature Pulse Rate 96 H 96 H 90 Respiratory Rate 27 H 22 27 H Blood Pressure 138/72 107/77 139/61 Pulse Oximetry 99 100 98 09/08/18 10:30 09/08/18 11:00 09/08/18 11:14 Temperature Pulse Rate 90 92 H 86 Respiratory Rate 21 22 26 H Blood Pressure 134/76 129/70 Pulse Oximetry 100 100 09/08/18 11:30 09/08/18 12:00 09/08/18 12:30 Temperature 98.1 F Pulse Rate 85 88 97 H Respiratory Rate 21 22 25 H Blood Pressure 108/61 124/77 135/78 Pulse Oximetry 100 100 100 Intake & Output 09/07/18 09/08/18 09/08/18 18:59 06:59 18:59 Intake Total 1265 / 1265 1010 / 1010 1615 / 1615 Output Total 750 / 750 902 / 902 Balance 515 / 515 108 / 108 1615 / 1615 Weight 110.4 kg Intake: IV 1265 / 1265 1010 / 1010 1615 / 1615 D5W Inj 1,000 ML @ 50 mls/hr IV 1000 / 1000 .CONT .Q20H [facility] Rx#:[id number] Ofirmev Inj 1,000 mg In 100 ml 200 / 200 100 / 100 @ 400 mls/hr IV.SIG Q6H [facility] Rx# :[id number] Azithromycin Inj 500 MG In NS 250 / 250 Inj 250 ML @ 250 mls/hr IV.SIG Q24H [facility] Rx#:[id number] Calcium Chloride Inj 1 GM In NS 110 / 110 Inj 100 ML @ 110 mls/hr IV.SIG ONCE ONE Rx#:[id number] Magnesium Sulfate Inj 2 GM In 100 / 100 NS Inj 96 ML @ 50 mls/hr IV.SIG UNSCH PRN Rx#:[id number] Zosyn 4.5 GM Premix 4.5 gm In 100 / 100 300 / 300 100 ml @ 200 mls/hr IV.SIG Q6H [facility] Rx#:[id number] KCl 20 mEq Premix Inj 20 meq In 200 / 200 100 ml @ 50 mls/hr IV.SIG Q2H PRN Rx#:[id number] Vancomycin Inj 1,500 MG In NS 515 / 515 515 / 515 Inj 500 ML @ 250 mls/hr IV.SIG Q18H [facility] Rx#:[id number] Flagyl 500 MG Inj 100 ML @ 100 200 / 200 200 / 200 100 / 100 mls/hr IV.SIG Q6H [facility] Rx#: [id number] Output: Urine Amount (Catheter) 650 / 650 600 / 600 Indwelling Urethral Catheter 650 / 650 600 / 600 Gastric Drainage 100 / 100 Left Nare 100 / 100 Wound Drainage 302 / 302 # 1 Left Lower Abdomen 302 / 302 Other: Date of Last Bowel Movement 09/05/18 09/05/18 Result Diagrams: 09/08/18 04:20 09/08/18 04:20 Objective Remarks: GENERAL: Lethargic elderly gentleman, lying in bed in moderate respiratory distress SKIN: Warm and dry. HEENT: Perioral herpetic lesions. Airway widely patent. Trachea midline. Left IJ CVL is clean dry and intact CARDIOVASCULAR: Irregular, regular rate. No JVD RESPIRATORY: Improved breath sounds at the bases with BiPAP, rhonchi persist right side, moderate accessory muscle use, tachypnea. GASTROINTESTINAL: Abdomen soft, bowel sounds active. MUSCULOSKELETAL: 1+ pitting edema in all extremities NEUROLOGICAL: Exhausted, lethargic but arousable, moving both upper extremities with purpose. Swallows safely and controls his airway well. Very weak. Assessment and Plan - Problem List (1) Acute respiratory failure with hypoxia and hypercapnia Code(s): J96.01 - Acute respiratory failure with hypoxia; J96.02 - Acute respiratory failure with hypercapnia Status: Acute (2) Hyponatremia Code(s): E87.1 - Hypo-osmolality and hyponatremia Status: Acute (3) Lactic acidosis Code(s): E87.2 - Acidosis Status: Acute (4) Atrial fibrillation with rapid ventricular response Code(s): I48.91 - Unspecified atrial fibrillation Status: Acute (5) Acute kidney injury Code(s): N17.9 - Acute kidney failure, unspecified Status: Acute (6) Chronic steroid use Status: Chronic (7) Hypertension Code(s): I10 - Essential (primary) hypertension Status: Chronic (8) Hyperlipidemia Code(s): E78.5 - Hyperlipidemia, unspecified Status: Chronic (9) Hard of hearing Code(s): H91.90 - Unspecified hearing loss, unspecified ear Status: Chronic (10) Trigeminal neuralgia Code(s): G50.0 - Trigeminal neuralgia Status: Chronic (11) Chronic anticoagulation Code(s): Z79.01 - termite helper (current) use of anticoagulants Status: Chronic (12) Leukocytosis Code(s): D72.829 - Elevated white blood cell count, unspecified Status: Acute (13) Elevated troponin Code(s): R74.8 - Abnormal levels of other serum enzymes Status: Acute (14) Hypoalbuminemia Code(s): E88.09 - Other disorders of plasma-protein metabolism, not elsewhere classified Status: Acute - Assessment and Plan Plan: Neuro/Psych: Hard of hearing Acetaminophen 650 mg by tube every 6 hours as needed fever Delirium precautions (lights on/ shades up during the day, limit nighttime disruptions, frequent reorientation, use hearing aids) CV: Atrial fibrillation with rapid ventricular response currently rate controlled Elevated troponin History of essential hypertension Hyperlipidemia Lactic acidosis Trop 0.27 on admission, most recent 0.08, no longer trending Echo: EF 45%, RV enlargement/ dysfunction, PAP 38 mm Hg Continue beta-tristian Resp: Acute respiratory failure secondary to community acquired pneumonia History of COPD 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 Albuterol/ipratropium aerosols every 4 hours with albuterol aerosols every 2 hours as needed dyspnea Continue home fluticasone/Vilanterol 200/25 1 inhalation daily Continue nocturnal CPAP/ PRN BiPAP Pulmonology following, increase nebulizer treatments Attempt to mobilize to stretcher chair GI: Suspected perforated viscus Hypoalbuminemia Elevated total bilirubin Status post right colectomy yesterday for cecal perforation, primary reanastomosis Pantoprazole for GI prophylaxis Docusate sodium/senna 1 tablet twice daily for bowel regimen : Strict intake output, monitor and replete elect lites, follow BUN/creatinine. Hold diuretics. Endo: Acute hyperglycemia Chronic steroid use Low TSH SSI TSH was 0.094, normal T4, T3 low-- would recheck in 4 weeks after critical illness has resolved Renal: WESLEY BID lasix dosing, hold No urine eosinophils noted Renal ultrasound - bilateral renal cyst. Possible hemorrhagic left renal cyst Avoid nephrotoxic medication Monitor urine output Accurate I's and O's Heme: Monitor CBC. Eliquis will be held. Ordered Kcentra for Eliquis reversal prior to Elap 09/06 ID: Community acquired pneumonia Perforated viscus Blood cultures from 08/25 grew Haemophilus influenza sensitive to penicillins/ cephalosporins, s/p ceftriaxone Repeat blood cultures sent on 08/27 negative thus far Sputum and urine cultures no growth to date Flu and MRSA swabs negative Legionella and pneumococcus negative ID following for antibiotic management. MSK: Elevated BMI PT evaluate and treat Weight loss encouraged FEN: Hypokalemia ICU electrolyte protocol Prophylaxis -GI -pantoprazole -DVT -SCD/apixaban will be held for exploratory laparotomy. Restart when okay with surgical service Overall impression: Severe chronic lung disease, particularly impressive involving the right lower lung. Gas exchange compromised and work of breathing increased. He is critically ill and requires BiPAP noninvasive ventilation for an unstable respiratory problem. I predict high risk of reintubation followed by likely need for tracheostomy. Critical care time 39 minutes (7) Hypertension Qualifiers: Hypertension type: essential hypertension Qualified Code(s): I10 - Essential (primary) hypertension (8) Hyperlipidemia Qualifiers: Hyperlipidemia type: unspecified Qualified Code(s): E78.5 - Hyperlipidemia, unspecified (9) Hard of hearing Qualifiers: Hearing loss type: unspecified Laterality: bilateral Qualified Code(s): H91.93 - Unspecified hearing loss, bilateral (12) Leukocytosis Qualifiers: Leukocytosis type: unspecified Qualified Code(s): D72.829 - Elevated white blood cell count, unspecified
[2018-09-08] MEDS ORDERED: Pharmacy Ordered Lab Info OTHER ONE (23:45)
[2018-09-09] MEDS: Insulin NovoLOG Aspart Correctional Sugar Inj SQ SCH ×4 (00:36→18:46)
[2018-09-09] MEDS: Oral Hygiene Kit OROPHARYNG SCH ×5 (00:37→23:36)
[2018-09-09] MEDS: Vancomycin Inj 1,500 MG in Sodium Chlor 0.9% Inj 500 ML IV.SIG SCH (01:06)
[2018-09-09] MEDS: Piperacil/Tazo 4.5 GM Premix 4.5 GM/100 ML BAG IV.SIG SCH ×4 (04:06→23:35)
[2018-09-09] MEDS: Dextrose 5% in Water Inj 1,000 ML IV.CONT SCH (04:06)
--- NOTE | 2018-09-09 04:39 | XR ---
EXAM DATE: 09/09/2018 4:17 AM EST AGE/SEX: 83 years / Male INDICATIONS: Respiratory distress. CLINICAL DATA: This is the patient's subsequent encounter. Patient reports that signs and symptoms h ave been present for 2 weeks and indicates a pain score of 0/10. MEDICAL/SURGICAL HISTORY: Hypertension. Chronic obstructive pulmonary disease. A-fib. Gamma kn jaguar treatment. Lithotripsy. [place] [facility] [place]. . FINDINGS: A single AP view of the chest demonstrates no significant change. Diffuse bilateral pulmonary infiltr ates again noted. No discernible effusions. Heart is mildly enlarged. Nasogastric tube courses off th e inferior margin of film. CONCLUSION: Unchanged diffuse bilateral infiltrates. Electronically signed by: Dionicio Camargo MD 09/09/2018 4:38 AM EST
[2018-09-09 04:43] LABS: Alkaline Phosphatase 61 U/L (45-117); Total Protein 5.4 g/dL (6.4-8.2)
[2018-09-09 04:44] LABS: Baso # (Auto) 0.1 th/mm3 (0.0-0.2); Baso % (Auto) 0.5 % (0.0-2.0); Eos # (Auto) 0.1 th/mm3 (0.0-0.4); Eos % (Auto) 0.4 % (0.0-4.0); Hematocrit 30.7 % (39.0-51.0); Hemoglobin 10.1 gm/dL (13.0-17.0); Lymph # (Auto) 0.5 th/mm3 (1.0-4.8); Lymph % (Auto) 2.6 % (9.0-44.0); Mean Corpuscular Hemoglobin 31.8 pg (27.0-34.0); Mean Corpuscular Volume 96.3 fL (80.0-100.0); Mean Platelet Volume 9.9 fL (7.0-11.0); Mono # (Auto) 0.5 th/mm3 (0.0-0.9); Mono % (Auto) 2.9 % (0.0-8.0); Neut # (Auto) 16.8 th/mm3 (1.8-7.7); Neut % (Auto) 93.6 % (16.0-70.0); Platelet Count 221 th/mm3 (150-450); Red Blood Count 3.19 mil/mm3 (4.50-5.90); Red Cell Distribution Width 15.6 % (11.6-17.2)
[2018-09-09 04:45] LABS: Alanine Aminotransferase 24 U/L (12-78); Albumin 1.6 g/dL (3.4-5.0); Anion Gap 6 meq/L (5-15); Aspartate Aminotransferase 32 U/L (15-37); Blood Urea Nitrogen 23 mg/dL (7-18); Calcium 8.3 mg/dL (8.5-10.1); Carbon Dioxide 29.1 meq/L (21.0-32.0); Chloride 111 meq/L (98-107); Glomerular Filtration Rate 65 mL/min (>89); Glucose,Random 105 mg/dL (74-106); Sodium 146 meq/L (136-145)
[2018-09-09 04:46] LABS: Potassium 3.9 meq/L (3.5-5.1)
[2018-09-09] MEDS: Artificial Tears Opth Drops 15 ML Bottle EACH EYE SCH ×3 (06:27→23:16)
[2018-09-09] MEDS: Chlorhexidine 0.12% Oral Kit 15 ML UDC OROPHARYNG SCH ×2 (08:49→20:22)
[2018-09-09] MEDS: Lactobacillus Acidophilus/L. Spores Tablet PO SCH ×2 (08:50→20:22)
[2018-09-09] MEDS: Senna/Docusate Sodium 8.6/50 MG Tablet PO SCH ×2 (08:50→20:23)
--- NOTE | 2018-09-09 09:27 | P.PNGS ---
Subjective Interval history: Resting in bed at bedside Physical Exam Vital signs: Vital Signs 09/08/18 09:30 09/08/18 10:00 09/08/18 10:30 Temperature Pulse Rate 96 H 90 90 Respiratory Rate 22 27 H 21 Blood Pressure 107/77 139/61 134/76 Pulse Oximetry 100 98 100 09/08/18 11:00 09/08/18 11:14 09/08/18 11:30 Temperature Pulse Rate 92 H 86 85 Respiratory Rate 22 26 H 21 Blood Pressure 129/70 108/61 Pulse Oximetry 100 100 09/08/18 12:00 09/08/18 12:30 09/08/18 13:00 Temperature 98.1 F Pulse Rate 88 97 H 83 Respiratory Rate 22 25 H 19 Blood Pressure 124/77 135/78 117/64 Pulse Oximetry 100 100 100 09/08/18 13:30 09/08/18 14:00 09/08/18 14:30 Temperature Pulse Rate 82 86 87 Respiratory Rate 20 19 19 Blood Pressure 119/71 112/70 111/68 Pulse Oximetry 100 100 100 09/08/18 15:00 09/08/18 15:20 09/08/18 15:30 Temperature Pulse Rate 88 92 H 89 Respiratory Rate 21 16 20 Blood Pressure 116/87 116/73 Pulse Oximetry 100 100 09/08/18 16:00 09/08/18 16:30 09/08/18 17:00 Temperature 98.7 F Pulse Rate 87 90 93 H Respiratory Rate 19 20 27 H Blood Pressure 133/66 133/79 122/69 Pulse Oximetry 100 100 100 09/08/18 17:30 09/08/18 17:37 09/08/18 18:00 Temperature Pulse Rate 92 H 87 92 H Respiratory Rate 25 H 21 21 Blood Pressure 160/121 H 132/64 124/62 Pulse Oximetry 100 100 100 09/08/18 18:30 09/08/18 19:00 09/08/18 20:00 Temperature Pulse Rate 95 H 89 91 H Respiratory Rate 28 H 20 20 Blood Pressure 128/65 Pulse Oximetry 100 100 100 09/08/18 20:18 09/08/18 21:00 09/08/18 21:34 Temperature Pulse Rate 96 H 89 Respiratory Rate 19 20 Blood Pressure Pulse Oximetry 100 100 99 09/08/18 22:00 09/08/18 23:00 09/08/18 23:43 Temperature Pulse Rate 82 87 87 Respiratory Rate 18 21 23 Blood Pressure 102/62 Pulse Oximetry 98 94 L 99 09/09/18 00:00 09/09/18 01:00 09/09/18 01:27 Temperature 98.6 F Pulse Rate 85 77 98 H Respiratory Rate 19 18 22 Blood Pressure 104/60 104/60 Pulse Oximetry 99 100 100 09/09/18 02:00 09/09/18 02:21 09/09/18 03:00 Temperature Pulse Rate 90 84 90 Respiratory Rate 28 H 20 22 Blood Pressure 99/63 L 106/59 L Pulse Oximetry 85 L 99 100 09/09/18 03:14 09/09/18 04:00 09/09/18 04:30 Temperature 98.6 F Pulse Rate 86 81 94 H Respiratory Rate 20 16 18 Blood Pressure 124/78 126/66 Pulse Oximetry 100 100 09/09/18 04:32 09/09/18 05:00 09/09/18 06:00 Temperature Pulse Rate 96 H 91 H Respiratory Rate 31 H 25 H Blood Pressure 120/75 Pulse Oximetry 95 84 L 99 09/09/18 06:03 09/09/18 08:51 Temperature Pulse Rate 91 H 82 Respiratory Rate 21 20 Blood Pressure 135/72 Pulse Oximetry 99 Intake & Output 09/08/18 09/09/18 09/09/18 18:59 06:59 18:59 Intake Total 1914 / 191 1300 / 1300 Output Total 2710 / 2710 1000 / 1000 Balance -795 / -795 300 / 300 Weight 111.5 kg Intake: IV 1914 1300 / 1300 D5W Inj 1,000 ML @ 50 mls/hr IV 1000 / 1000 900 / 900 .CONT .Q20H [facility] Rx#:[id number] Zosyn 4.5 GM Premix 4.5 gm In 200 / 200 200 / 200 100 ml @ 200 mls/hr IV.SIG Q6H [facility] Rx#:[id number] Vancomycin Inj 1,500 MG In NS 515 / 515 Inj 500 ML @ 250 mls/hr IV.SIG Q18H [facility] Rx#:[id number] Flagyl 500 MG Inj 100 ML @ 100 200 / 200 200 / 200 mls/hr IV.SIG Q6H [facility] Rx#: [id number] Output: Urine Amount (Catheter) 2550 / 2550 800 / 800 Indwelling Urethral Catheter 2550 / 2550 800 / 800 Gastric Drainage 0 / 0 Left Nare 0 / 0 Wound Drainage 160 / 160 200 / 200 # 1 Left Lower Abdomen 160 / 160 200 / 200 Other: Date of Last Bowel Movement 09/05/18 09/05/18 Narrative: Alert and awake Cardio: CTAB Abd: soft; TANG with good seal---moderate amount of drainage on TANG; DAVID with serosanguineous drainage Moderate generalized edema - Urinary Catheter Management Indwelling Temp Sensing Catheter Cath placed during this visit: yes, but has since been removed by the nurse Reason for continuing: Decision to DC catheter Insertion date: 08/25/18 Insertion time: 14:20 Removal date: 08/29/18 Removal time: 12:30 Indwelling Urethral Catheter Cath placed during this visit: yes Reason for continuing: Hourly intake/output Insertion date: 09/06/18 Insertion time: 12:00 Results - Labs 09/18/18 07:34 09/18/18 10:52 Laboratory Results - last 24 hr 09/06/18 09/08/18 09/08/18 12:46 12:07 18:24 WBC RBC Hgb Hct MCV MCH MCHC RDW Plt Count MPV Neut % (Auto) Lymph % (Auto) [place] % (Auto) Eos % (Auto) Baso % (Auto) Neut # (Auto) Lymph # (Auto) [place] # (Auto) Eos # (Auto) Baso # (Auto) WBC Differential Differential Comment Sodium Potassium Chloride Carbon Dioxide Anion Gap BUN Creatinine Estimated GFR POC Glucose 141 H 143 H Random Glucose Calcium Total Bilirubin AST ALT Alkaline Phosphatase Total Protein Albumin Vancomycin Trough MTS Gel Crossmatch See Detail 09/09/18 09/09/18 09/09/18 00:10 00:16 03:26 WBC RBC Hgb Hct MCV MCH MCHC RDW Plt Count MPV Neut % (Auto) Lymph % (Auto) [place] % (Auto) Eos % (Auto) Baso % (Auto) Neut # (Auto) Lymph # (Auto) [place] # (Auto) Eos # (Auto) Baso # (Auto) WBC Differential Differential Comment Sodium 146 H Potassium 3.9 Chloride 111 H Carbon Dioxide 29.1 Anion Gap 6 BUN 23 H Creatinine 1.08 Estimated GFR 65 L POC Glucose 117 H Random Glucose 105 Calcium 8.3 L Total Bilirubin 0.8 AST 32 ALT 24 Alkaline Phosphatase 61 Total Protein 5.4 L Albumin 1.6 L Vancomycin Trough 19.0 H MTS Gel Crossmatch 09/09/18 03:26 WBC 18.0 H RBC 3.19 L Hgb 10.1 L Hct 30.7 L MCV 96.3 MCH 31.8 MCHC 33.0 RDW 15.6 Plt Count 221 MPV 9.9 Neut % (Auto) 93.6 H Lymph % (Auto) 2.6 L [place] % (Auto) 2.9 Eos % (Auto) 0.4 Baso % (Auto) 0.5 Neut # (Auto) 16.8 H Lymph # (Auto) 0.5 L [place] # (Auto) 0.5 Eos # (Auto) 0.1 Baso # (Auto) 0.1 WBC Differential . Differential Comment Auto diff final Sodium Potassium Chloride Carbon Dioxide Anion Gap BUN Creatinine Estimated GFR POC Glucose Random Glucose Calcium Total Bilirubin AST ALT Alkaline Phosphatase Total Protein Albumin Vancomycin Trough MTS Gel Crossmatch - Imaging Imaging: ITS Impressions Abdomen/Bladder Ultrasound 08/25/18 00:00 CONCLUSION: 1. No evidence of hydronephrosis. 2. Bilateral renal cysts, mostly simple, with one cyst demonstrating homogeneous low level echoes, located in the midpole the left kidney and measuring 4 cm. Venous Doppler Study 08/25/18 00:00 CONCLUSION: 1. The study is negative for bilateral lower extremity deep venous thrombosis. Chest CT 09/05/18 00:00 CONCLUSION: 1. 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 2. Right lower lobe cavitary mass. 3. Probably benign left adrenal lesion Head CT 09/05/18 00:00 CONCLUSION: 1. No acute intracranial abnormalities. . Abdomen/Pelvis CT 09/07/18 00:00 CONCLUSION: 1. Status post recent abdominal surgery with free air throughout the abdomen. 2. Mild air-filled loops of small bowel suggestive of a postoperative ileus. 3. Otherwise no other significant changes are seen compared to the prior exam. Chest X-Ray 09/09/18 00:00 CONCLUSION: Unchanged diffuse bilateral infiltrates. 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 I reviewed and agree with the findings presented. I attest that I had a [id number] encounter with the patient on the same day, and personally performed and documented my assessment and findings in the medical record.
--- NOTE | 2018-09-09 12:14 | P.PNNP ---
Subjective Interval history: Patient was seen, no distress, no complaints. Restarted on Diuril today. Sodium is 146, stable. <Steven Limon - Last Filed: 09/09/18 12:09> Physical Exam Vital signs: Vital Signs 09/08/18 12:30 09/08/18 13:00 09/08/18 13:30 Temperature Pulse Rate 97 H 83 82 Respiratory Rate 25 H 19 20 Blood Pressure 135/78 117/64 119/71 Pulse Oximetry 100 100 100 09/08/18 14:00 09/08/18 14:30 09/08/18 15:00 Temperature Pulse Rate 86 87 88 Respiratory Rate 19 19 21 Blood Pressure 112/70 111/68 116/87 Pulse Oximetry 100 100 100 09/08/18 15:20 09/08/18 15:30 09/08/18 16:00 Temperature 98.7 F Pulse Rate 92 H 89 87 Respiratory Rate 16 20 19 Blood Pressure 116/73 133/66 Pulse Oximetry 100 100 09/08/18 16:30 09/08/18 17:00 09/08/18 17:30 Temperature Pulse Rate 90 93 H 92 H Respiratory Rate 20 27 H 25 H Blood Pressure 133/79 122/69 160/121 H Pulse Oximetry 100 100 100 09/08/18 17:37 09/08/18 18:00 09/08/18 18:30 Temperature Pulse Rate 87 92 H 95 H Respiratory Rate 21 21 28 H Blood Pressure 132/64 124/62 128/65 Pulse Oximetry 100 100 100 09/08/18 19:00 09/08/18 20:00 09/08/18 20:18 Temperature Pulse Rate 89 91 H 96 H Respiratory Rate 20 20 19 Blood Pressure Pulse Oximetry 100 100 100 09/08/18 21:00 09/08/18 21:34 09/08/18 22:00 Temperature Pulse Rate 89 82 Respiratory Rate 20 18 Blood Pressure Pulse Oximetry 100 99 98 09/08/18 23:00 09/08/18 23:43 09/09/18 00:00 Temperature 98.6 F Pulse Rate 87 87 85 Respiratory Rate 21 23 19 Blood Pressure 102/62 Pulse Oximetry 94 L 99 99 09/09/18 01:00 09/09/18 01:27 09/09/18 02:00 Temperature Pulse Rate 77 98 H 90 Respiratory Rate 18 22 28 H Blood Pressure 104/60 104/60 99/63 L Pulse Oximetry 100 100 85 L 09/09/18 02:21 09/09/18 03:00 09/09/18 03:14 Temperature Pulse Rate 84 90 86 Respiratory Rate 20 22 20 Blood Pressure 106/59 L 124/78 Pulse Oximetry 99 100 100 09/09/18 04:00 09/09/18 04:30 09/09/18 04:32 Temperature 98.6 F Pulse Rate 81 94 H Respiratory Rate 16 18 Blood Pressure 126/66 Pulse Oximetry 100 95 09/09/18 05:00 09/09/18 06:00 09/09/18 06:03 Temperature Pulse Rate 96 H 91 H 91 H Respiratory Rate 31 H 25 H 21 Blood Pressure 120/75 135/72 Pulse Oximetry 84 L 99 99 09/09/18 07:00 09/09/18 08:00 09/09/18 08:22 Temperature 97.7 F Pulse Rate 83 86 88 Respiratory Rate 18 19 28 H Blood Pressure 99/60 L 110/65 Pulse Oximetry 94 L 99 100 09/09/18 08:51 09/09/18 09:00 Temperature Pulse Rate 82 87 Respiratory Rate 20 21 Blood Pressure 106/72 Pulse Oximetry 100 Intake & Output 09/08/18 09/09/18 09/09/18 18:59 06:59 18:59 Intake Total 1914 1300 / 1300 Output Total 2710 / 2710 1000 / 1000 Balance -795 / -795 300 / 300 Weight 111.5 kg Intake: IV 1914 1300 / 1300 D5W Inj 1,000 ML @ 50 mls/hr IV 1000 / 1000 900 / 900 .CONT .Q20H [facility] Rx#:[id number] Zosyn 4.5 GM Premix 4.5 gm In 200 / 200 200 / 200 100 ml @ 200 mls/hr IV.SIG Q6H [facility] Rx#:[id number] Vancomycin Inj 1,500 MG In NS 515 / 515 Inj 500 ML @ 250 mls/hr IV.SIG Q18H [facility] Rx#:[id number] Flagyl 500 MG Inj 100 ML @ 100 200 / 200 200 / 200 mls/hr IV.SIG Q6H [facility] Rx#: [id number] Output: Urine Amount (Catheter) 2550 / 2550 800 / 800 Indwelling Urethral Catheter 2550 / 2550 800 / 800 Gastric Drainage 0 / 0 Left Nare 0 / 0 Wound Drainage 160 / 160 200 / 200 # 1 Left Lower Abdomen 160 / 160 200 / 200 Other: Date of Last Bowel Movement 09/05/18 09/05/18 - Constitutional no acute distress - Routine HEENT Exam Head: Present: normocephalic ENT: Present: mucous membranes moist - Routine Neck Exam Present: trachea midline. Absent: tracheal deviation - Routine Respiratory Exam Present: CTA bilaterally. Absent: accessory muscle use - Routine Cardiovascular Exam Present: RRR - Routine Abdominal Exam Present: soft. Absent: tenderness - Routine Extremities Exam Present: edema - Routine Neurological Exam Present: alert, oriented X3 - Routine Psychiatric Exam Present: normal affect - Urinary Catheter Management Indwelling Temp Sensing Catheter Cath placed during this visit: yes, but has since been removed by the nurse Reason for continuing: Decision to DC catheter Insertion date: 08/25/18 Insertion time: 14:20 Removal date: 08/29/18 Removal time: 12:30 Indwelling Urethral Catheter Cath placed during this visit: yes Reason for continuing: Hourly intake/output Insertion date: 09/06/18 Insertion time: 12:00 <Steven Limon - Last Filed: 09/09/18 12:09> Vital signs: Vital Signs 09/08/18 21:34 09/08/18 22:00 09/08/18 23:00 Temperature Pulse Rate 82 87 Respiratory Rate 18 21 Blood Pressure Pulse Oximetry 99 98 94 L 09/08/18 23:43 09/09/18 00:00 09/09/18 01:00 Temperature 98.6 F Pulse Rate 87 85 77 Respiratory Rate 23 19 18 Blood Pressure 102/62 104/60 Pulse Oximetry 99 99 100 09/09/18 01:27 09/09/18 02:00 09/09/18 02:21 Temperature Pulse Rate 98 H 90 84 Respiratory Rate 22 28 H 20 Blood Pressure 104/60 99/63 L 106/59 L Pulse Oximetry 100 85 L 99 09/09/18 03:00 09/09/18 03:14 09/09/18 04:00 Temperature 98.6 F Pulse Rate 90 86 81 Respiratory Rate 22 20 16 Blood Pressure 124/78 126/66 Pulse Oximetry 100 100 100 09/09/18 04:30 09/09/18 04:32 09/09/18 05:00 Temperature Pulse Rate 94 H 96 H Respiratory Rate 18 31 H Blood Pressure 120/75 Pulse Oximetry 95 84 L 09/09/18 06:00 09/09/18 06:03 09/09/18 07:00 Temperature Pulse Rate 91 H 91 H 83 Respiratory Rate 25 H 21 18 Blood Pressure 135/72 99/60 L Pulse Oximetry 99 99 94 L 09/09/18 08:00 09/09/18 08:22 09/09/18 08:51 Temperature 97.7 F Pulse Rate 87 88 82 Respiratory Rate 19 28 H 20 Blood Pressure 110/65 Pulse Oximetry 99 100 09/09/18 09:00 09/09/18 10:00 09/09/18 11:00 Temperature Pulse Rate 87 93 H 87 Respiratory Rate 21 19 18 Blood Pressure 106/72 129/65 117/74 Pulse Oximetry 100 96 99 09/09/18 12:00 09/09/18 12:10 09/09/18 13:00 Temperature 97.6 F Pulse Rate 85 88 106 H Respiratory Rate 17 20 31 H Blood Pressure 103/64 126/95 H Pulse Oximetry 100 87 L 09/09/18 14:00 09/09/18 15:00 09/09/18 16:00 Temperature 97.9 F Pulse Rate 93 H 81 93 H Respiratory Rate 20 17 25 H Blood Pressure 109/70 123/76 133/79 Pulse Oximetry 91 L 97 95 09/09/18 16:08 09/09/18 17:00 09/09/18 18:00 Temperature Pulse Rate 89 93 H 94 H Respiratory Rate 17 22 20 Blood Pressure 116/66 112/63 Pulse Oximetry 94 L 95 09/09/18 19:00 09/09/18 20:00 09/09/18 20:35 Temperature Pulse Rate 95 H 96 H Respiratory Rate 22 16 Blood Pressure 112/66 Pulse Oximetry 94 L 97 09/09/18 21:00 Temperature Pulse Rate Respiratory Rate Blood Pressure Pulse Oximetry 97 Intake & Output 09/09/18 09/09/18 09/10/18 06:59 18:59 06:59 Intake Total 1300 / 1300 300 / 300 Output Total 1000 / 1000 850 / 850 Balance 300 / 300 -550 / -550 Weight 111.5 kg Intake: IV 1300 / 1300 300 / 300 D5W Inj 1,000 ML @ 50 mls/hr IV 900 / 900 .CONT .Q20H [facility] Rx#:[id number] Zosyn 4.5 GM Premix 4.5 gm In 200 / 200 100 / 100 100 ml @ 200 mls/hr IV.SIG Q6H [facility] Rx#:[id number] Flagyl 500 MG Inj 100 ML @ 100 200 / 200 200 / 200 mls/hr IV.SIG Q6H [facility] Rx#: [id number] Output: Stool 300 / 300 Urine Amount (Catheter) 800 / 800 550 / 550 Indwelling Urethral Catheter 800 / 800 550 / 550 Wound Drainage 200 / 200 # 1 Left Lower Abdomen 200 / 200 Other: Date of Last Bowel Movement 09/05/18 09/05/18 - Urinary Catheter Management Indwelling Temp Sensing Catheter Cath placed during this visit: no Indwelling Urethral Catheter Cath placed during this visit: no <Wang Hunt - Last Filed: 09/09/18 21:30> Assessment and Plan - Assessment (1) Hypernatremia Code(s): E87.0 - Hyperosmolality and hypernatremia Status: Acute Plan: Restarted on Diuril today. Sodium is 146, stable. On D5W at 50 ml/hr. Avoid nephrotoxic agents. Monitor urine output. Monitor for hyperglycemia, if patient develops hyperglycemia, osmotic diuresis will worsen hypernatremia. (2) Leukocytosis Code(s): D72.829 - Elevated white blood cell count, unspecified Status: Acute Qualifiers: Leukocytosis type: unspecified Qualified Code(s): D72.829 - Elevated white blood cell count, unspecified Plan: Has been diagnosed with pneumonia. Also is on steroids. (3) Pneumonia Code(s): J18.9 - Pneumonia, unspecified organism Status: Acute Qualifiers: Pneumonia type: due to unspecified organism Laterality: bilateral Lung location: unspecified part of lung Qualified Code(s): J18.9 - Pneumonia, unspecified organism Plan: Continue antibiotics, ID following. <Steven Limon - Last Filed: 09/09/18 12:09> - Assessment (1) Hypernatremia Code(s): E87.0 - Hyperosmolality and hypernatremia Status: Acute (2) Leukocytosis Code(s): D72.829 - Elevated white blood cell count, unspecified Status: Acute Qualifiers: Leukocytosis type: unspecified Qualified Code(s): D72.829 - Elevated white blood cell count, unspecified (3) Pneumonia Code(s): J18.9 - Pneumonia, unspecified organism Status: Acute Qualifiers: Pneumonia type: due to unspecified organism Laterality: bilateral Lung location: unspecified part of lung Qualified Code(s): J18.9 - Pneumonia, unspecified organism - Attending Attestation patient was seen and examined. Hypernatremia has improved. Fluid overload is noted. Start Diuril <Wang Hunt - Last Filed: 09/09/18 21:30>
[2018-09-09] MEDS: Azithromycin Inj 500 MG in Sodium Chlor 0.9% Inj 250 ML IV.SIG SCH (12:23)
[2018-09-09] MEDS: Pantoprazole Inj 40 MG Vial IV.PUSH SCH (12:23)
--- NOTE | 2018-09-09 13:07 | P.PNCC ---
Subjective Subjective Remarks/Hospital Course: This is an 83-year-old male. Date of admission 08/25/2018. Past medical includes atrial fibrillation with history of cardioversion, chronic apixaban use, hypertension, hyperlipidemia, trigeminal neuralgia/hard of hearing : Bilateral hearing aids. For the past 4 days, patient been increasing short of breath increased malaise. Denies any sick contacts or recent travels. Unknown influenza status. Patient is to [facility] with worsening shortness of breath. Complains of pleuritic and musculoskeletal chest pain. Patient also has a prior history of tobacco abuse times 50 years quit 15 years ago. Patient called EMS for evaluation due to acute shortness of breath. Upon arrival, patient was noted to be in a rapid heart rate in the 150s. Patient was given acute bronchodilator therapy and started on a lidocaine drip for possible V. tach. Patient was transported to [facility] for further evaluation treatment. Upon arrival, patient was noted to be in A. fib with RVR. Chest x-ray revealed bilateral infiltrates right greater than left. Patient was placed on BiPAP therapy with some improvement. Patient received ceftriaxone and azithromycin. 3 L normal saline. Patient remained somewhat hypotensive. Patient a lactate of 5.1. Troponin 0 0.27. Patient was transported to [facility]. On arrival, patient increasingly short of breath. Required intubation with central line placement and arterial line placement. SUBJECTIVE: 08/26: Currently resting in bed intubated requiring mechanical ventilation. Arousable and does follow commands but heart rate much better controlled rate. No acute findings overnight. Leukocytosis slightly worsened. Potassium replaced currently. Arousable and does follow commands. at bedside and updated Wilma. 08/27: Patient on low-dose (2 mcg) levo overnight, off since this morning. Low urine output over the past 24 hours. HR well-controlled in 70s-80s. 08/28: Patient tolerated PST yesterday afternoon, placed back on AC overnight to rest. Urine output improved with lasix/ Chavez was noted to be clogged with sediment and replaced. No new issues. 08/29: Extubated yesterday, on bipap through the afternoon/ evening (patient is on nocturnal CPAP at home). BP persistently elevated, now on cardene gtt. 08/30: On BiPAP overnight. Currently on facemask O2. Sitting up in chair, not in any acute distress. 08/31: Critical care reconsulted this morning due to free air noted under the diaphragm on routine chest x-ray. When I evaluated the patient he was resting in bed on nasal cannula. No hypotension overnight. He did have a BM yesterday he has been having vague abdominal discomfort. He appears more lethargic and delirious yesterday according to his . Patient was drowsy but easily arousable however appeared encephalopathic. He did not appear to be in any acute distress however on examination of his abdomen did grimace some guarding. He did receive Eliquis this morning. On review of CT done on 09/05 patient appears to have free intraperitoneal air. This was discussed with Dr. Richards. Plan was made for exploratory laparotomy Maurice. I did order K Centra for Eliquis reversal per discussion with Dr. Richards. Also spoke with patient's regarding concern regarding perforated viscus and need for emergency surgery she voiced understanding. Patient is on Unasyn and being followed by ID. Ordered normal saline IV fluids and made patient n.p.o. 09/07: Extubated yesterday but breathing a little labored this morning. Respiratory rate around 30 with some accessory muscle use. Lung joel generally clear with a few scattered rhonchi on the right side. No wheezing. No crackles. We tried BiPAP noninvasive ventilation and he was much more comfortable and promptly went to sleep. Although gas exchange is acceptable his work of breathing is clearly excessive without support. 09/08: Extubated 48 hours ago. Comfortable on BiPAP noninvasive ventilation but labored when off. Fluid balance not particularly problematic, but most of respiratory difficulty appears to be the mobilization of secretions. 09/09: Resting comfortably on nasal cannula. NG tube clamped this morning. Objective Vital Signs / I&O: Vital Signs 09/08/18 13:00 09/08/18 13:30 09/08/18 14:00 Temperature Pulse Rate 83 82 86 Respiratory Rate 19 20 19 Blood Pressure 117/64 119/71 112/70 Pulse Oximetry 100 100 100 09/08/18 14:30 09/08/18 15:00 09/08/18 15:20 Temperature Pulse Rate 87 88 92 H Respiratory Rate 19 21 16 Blood Pressure 111/68 116/87 Pulse Oximetry 100 100 09/08/18 15:30 09/08/18 16:00 09/08/18 16:30 Temperature 98.7 F Pulse Rate 89 87 90 Respiratory Rate 20 19 20 Blood Pressure 116/73 133/66 133/79 Pulse Oximetry 100 100 100 09/08/18 17:00 09/08/18 17:30 09/08/18 17:37 Temperature Pulse Rate 93 H 92 H 87 Respiratory Rate 27 H 25 H 21 Blood Pressure 122/69 160/121 H 132/64 Pulse Oximetry 100 100 100 09/08/18 18:00 09/08/18 18:30 09/08/18 19:00 Temperature Pulse Rate 92 H 95 H 89 Respiratory Rate 21 28 H 20 Blood Pressure 124/62 128/65 Pulse Oximetry 100 100 100 09/08/18 20:00 09/08/18 20:18 09/08/18 21:00 Temperature Pulse Rate 91 H 96 H 89 Respiratory Rate 20 19 20 Blood Pressure Pulse Oximetry 100 100 100 09/08/18 21:34 09/08/18 22:00 09/08/18 23:00 Temperature Pulse Rate 82 87 Respiratory Rate 18 21 Blood Pressure Pulse Oximetry 99 98 94 L 09/08/18 23:43 09/09/18 00:00 09/09/18 01:00 Temperature 98.6 F Pulse Rate 87 85 77 Respiratory Rate 23 19 18 Blood Pressure 102/62 104/60 Pulse Oximetry 99 99 100 09/09/18 01:27 09/09/18 02:00 09/09/18 02:21 Temperature Pulse Rate 98 H 90 84 Respiratory Rate 22 28 H 20 Blood Pressure 104/60 99/63 L 106/59 L Pulse Oximetry 100 85 L 99 09/09/18 03:00 09/09/18 03:14 09/09/18 04:00 Temperature 98.6 F Pulse Rate 90 86 81 Respiratory Rate 22 20 16 Blood Pressure 124/78 126/66 Pulse Oximetry 100 100 100 09/09/18 04:30 09/09/18 04:32 09/09/18 05:00 Temperature Pulse Rate 94 H 96 H Respiratory Rate 18 31 H Blood Pressure 120/75 Pulse Oximetry 95 84 L 09/09/18 06:00 09/09/18 06:03 09/09/18 07:00 Temperature Pulse Rate 91 H 91 H 83 Respiratory Rate 25 H 21 18 Blood Pressure 135/72 99/60 L Pulse Oximetry 99 99 94 L 09/09/18 08:00 09/09/18 08:22 09/09/18 08:51 Temperature 97.7 F Pulse Rate 86 88 82 Respiratory Rate 19 28 H 20 Blood Pressure 110/65 Pulse Oximetry 99 100 09/09/18 09:00 09/09/18 12:10 Temperature Pulse Rate 87 88 Respiratory Rate 21 20 Blood Pressure 106/72 Pulse Oximetry 100 Intake & Output 09/08/18 09/09/18 09/09/18 18:59 06:59 18:59 Intake Total 2165 / 2165 1300 / 1300 Output Total 2710 / 2710 1000 / 1000 Balance -545 / -545 300 / 300 Weight 111.5 kg Intake: IV 2165 / 2165 1300 / 1300 D5W Inj 1,000 ML @ 50 mls/hr IV 1000 / 1000 900 / 900 .CONT .Q20H [facility] Rx#:[id number] Azithromycin Inj 500 MG In NS 250 / 250 Inj 250 ML @ 250 mls/hr IV.SIG Q24H [facility] Rx#:[id number] Zosyn 4.5 GM Premix 4.5 gm In 200 / 200 200 / 200 100 ml @ 200 mls/hr IV.SIG Q6H [facility] Rx#:[id number] Vancomycin Inj 1,500 MG In NS 515 / 515 Inj 500 ML @ 250 mls/hr IV.SIG Q18H [facility] Rx#:[id number] Flagyl 500 MG Inj 100 ML @ 100 200 / 200 200 / 200 mls/hr IV.SIG Q6H [facility] Rx#: [id number] Output: Urine Amount (Catheter) 2550 / 2550 800 / 800 Indwelling Urethral Catheter 2550 / 2550 800 / 800 Gastric Drainage 0 / 0 Left Nare 0 / 0 Wound Drainage 160 / 160 200 / 200 # 1 Left Lower Abdomen 160 / 160 200 / 200 Other: Date of Last Bowel Movement 09/05/18 09/05/18 Result Diagrams: 09/09/18 03:26 09/09/18 03:26 Objective Remarks: GENERAL: Lethargic elderly gentleman, lying in bed in moderate respiratory distress SKIN: Warm and dry. HEENT: Perioral herpetic lesions. Airway widely patent. Trachea midline. Left IJ CVL is clean dry and intact CARDIOVASCULAR: Irregular, regular rate. No JVD RESPIRATORY: Air entry decreased bilaterally at bases, rhonchi persist right side, no accessory muscle use, no wheezing GASTROINTESTINAL: Abdomen soft, bowel sounds active. MUSCULOSKELETAL: 1+ pitting edema in all extremities NEUROLOGICAL: Exhausted, lethargic but arousable, moving both upper extremities with purpose. Swallows safely and controls his airway well. Very weak. Assessment and Plan - Problem List (1) Acute respiratory failure with hypoxia and hypercapnia Code(s): J96.01 - Acute respiratory failure with hypoxia; J96.02 - Acute respiratory failure with hypercapnia Status: Acute (2) Hyponatremia Code(s): E87.1 - Hypo-osmolality and hyponatremia Status: Acute (3) Lactic acidosis Code(s): E87.2 - Acidosis Status: Acute (4) Atrial fibrillation with rapid ventricular response Code(s): I48.91 - Unspecified atrial fibrillation Status: Acute (5) Acute kidney injury Code(s): N17.9 - Acute kidney failure, unspecified Status: Acute (6) Chronic steroid use Status: Chronic (7) Hypertension Code(s): I10 - Essential (primary) hypertension Status: Chronic (8) Hyperlipidemia Code(s): E78.5 - Hyperlipidemia, unspecified Status: Chronic (9) Hard of hearing Code(s): H91.90 - Unspecified hearing loss, unspecified ear Status: Chronic (10) Trigeminal neuralgia Code(s): G50.0 - Trigeminal neuralgia Status: Chronic (11) Chronic anticoagulation Code(s): Z79.01 - manager terminal (current) use of anticoagulants Status: Chronic (12) Leukocytosis Code(s): D72.829 - Elevated white blood cell count, unspecified Status: Acute (13) Elevated troponin Code(s): R74.8 - Abnormal levels of other serum enzymes Status: Acute (14) Hypoalbuminemia Code(s): E88.09 - Other disorders of plasma-protein metabolism, not elsewhere classified Status: Acute - Assessment and Plan Plan: Neuro/Psych: Hard of hearing Acetaminophen 650 mg by tube every 6 hours as needed fever Delirium precautions (lights on/ shades up during the day, limit nighttime disruptions, frequent reorientation, use hearing aids) CV: Atrial fibrillation with rapid ventricular response currently rate controlled Elevated troponin History of essential hypertension Hyperlipidemia Lactic acidosis Trop 0.27 on admission, most recent 0.08, no longer trending Echo: EF 45%, RV enlargement/ dysfunction, PAP 38 mm Hg Continue beta-tristian Resp: Acute respiratory failure secondary to community acquired pneumonia History of COPD 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 NGT clamped 09/09, Surgery to decide PO intake Pantoprazole for GI prophylaxis Docusate sodium/senna 1 tablet twice daily for bowel regimen : Strict intake output, monitor and replete elect lites, follow BUN/creatinine. Hold diuretics. Endo: Acute hyperglycemia Chronic steroid use Low TSH SSI TSH was 0.094, normal T4, T3 low-- would recheck in 4 weeks after critical illness has resolved Renal: WESLEY BID lasix dosing, hold No urine eosinophils noted Renal ultrasound - bilateral renal cyst. Possible hemorrhagic left renal cyst Avoid nephrotoxic medication Monitor urine output Accurate I's and O's Heme: Monitor CBC. Eliquis will be held. Ordered Kcentra for Eliquis reversal prior to Elap 09/06 ID: Community acquired pneumonia Perforated viscus Blood cultures from 08/25 grew Haemophilus influenza sensitive to penicillins/ cephalosporins, s/p ceftriaxone Repeat blood cultures sent on 08/27 negative thus far Sputum and urine cultures no growth to date Flu and MRSA swabs negative Legionella and pneumococcus negative ID following for antibiotic management. MSK: Elevated BMI PT evaluate and treat Weight loss encouraged FEN: Hypokalemia ICU electrolyte protocol Prophylaxis -GI -pantoprazole -DVT -SCD/apixaban will be held for exploratory laparotomy. Restart when okay with surgical service Overall impression: Severe chronic lung disease, particularly impressive involving the right lower lung. Gas exchange compromised and work of breathing increased. High risk of reintubation followed by likely need for tracheostomy. (7) Hypertension Qualifiers: Hypertension type: essential hypertension Qualified Code(s): I10 - Essential (primary) hypertension (8) Hyperlipidemia Qualifiers: Hyperlipidemia type: unspecified Qualified Code(s): E78.5 - Hyperlipidemia, unspecified (9) Hard of hearing Qualifiers: Hearing loss type: unspecified Laterality: bilateral Qualified Code(s): H91.93 - Unspecified hearing loss, bilateral (12) Leukocytosis Qualifiers: Leukocytosis type: unspecified Qualified Code(s): D72.829 - Elevated white blood cell count, unspecified
--- NOTE | 2018-09-09 13:19 | P.PNID ---
Subjective Remarks: Patient is awake and alert. Wants to eat. Currently on nasal cannula. Post right hemicolectomy for perforated viscus. White blood cell count is improving. Mycoplasma IgG is positive. Mycoplasma IgM is negative. Chlamydia IgG positive. Legionella and strep antigen were negative. 83-year-old white male was admitted to the hospital on 08/25/2018. Patient presented with shortness of breath. Chest x-ray showed bilateral infiltrates and white blood cell count was elevated. 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 History of lithotripsy History of arthroplasty of the knee History of trigeminal neuralgia. Allergies/Adverse Reactions: Allergies amiodarone Allergy (Intermediate, Verified 11/15/17 10:35) BLACK LUNGS atorvastatin [From Lipitor] Adverse Reaction (Unknown, Verified 09/05/18 15:05) Joint Pain fluvastatin [From Lescol] Adverse Reaction (Unknown, Verified 09/05/18 15:05) UNKNOWN Sulfa (Sulfonamide Antibiotics) Adverse Reaction (Verified 09/05/18 15:05) Abdominal Pain Objective Vital Signs 09/08/18 13:30 09/08/18 14:00 09/08/18 14:30 Temperature Pulse Rate 82 86 87 Respiratory Rate 20 19 19 Blood Pressure 119/71 112/70 111/68 Pulse Oximetry 100 100 100 09/08/18 15:00 09/08/18 15:20 09/08/18 15:30 Temperature Pulse Rate 88 92 H 89 Respiratory Rate 21 16 20 Blood Pressure 116/87 116/73 Pulse Oximetry 100 100 09/08/18 16:00 09/08/18 16:30 09/08/18 17:00 Temperature 98.7 F Pulse Rate 87 90 93 H Respiratory Rate 19 20 27 H Blood Pressure 133/66 133/79 122/69 Pulse Oximetry 100 100 100 09/08/18 17:30 09/08/18 17:37 09/08/18 18:00 Temperature Pulse Rate 92 H 87 92 H Respiratory Rate 25 H 21 21 Blood Pressure 160/121 H 132/64 124/62 Pulse Oximetry 100 100 100 09/08/18 18:30 09/08/18 19:00 09/08/18 20:00 Temperature Pulse Rate 95 H 89 91 H Respiratory Rate 28 H 20 20 Blood Pressure 128/65 Pulse Oximetry 100 100 100 09/08/18 20:18 09/08/18 21:00 09/08/18 21:34 Temperature Pulse Rate 96 H 89 Respiratory Rate 19 20 Blood Pressure Pulse Oximetry 100 100 99 09/08/18 22:00 09/08/18 23:00 09/08/18 23:43 Temperature Pulse Rate 82 87 87 Respiratory Rate 18 21 23 Blood Pressure 102/62 Pulse Oximetry 98 94 L 99 09/09/18 00:00 09/09/18 01:00 09/09/18 01:27 Temperature 98.6 F Pulse Rate 85 77 98 H Respiratory Rate 19 18 22 Blood Pressure 104/60 104/60 Pulse Oximetry 99 100 100 09/09/18 02:00 09/09/18 02:21 09/09/18 03:00 Temperature Pulse Rate 90 84 90 Respiratory Rate 28 H 20 22 Blood Pressure 99/63 L 106/59 L Pulse Oximetry 85 L 99 100 09/09/18 03:14 09/09/18 04:00 09/09/18 04:30 Temperature 98.6 F Pulse Rate 86 81 94 H Respiratory Rate 20 16 18 Blood Pressure 124/78 126/66 Pulse Oximetry 100 100 09/09/18 04:32 09/09/18 05:00 09/09/18 06:00 Temperature Pulse Rate 96 H 91 H Respiratory Rate 31 H 25 H Blood Pressure 120/75 Pulse Oximetry 95 84 L 99 09/09/18 06:03 09/09/18 07:00 09/09/18 08:00 Temperature 97.7 F Pulse Rate 91 H 83 86 Respiratory Rate 21 18 19 Blood Pressure 135/72 99/60 L Pulse Oximetry 99 94 L 99 09/09/18 08:22 09/09/18 08:51 09/09/18 09:00 Temperature Pulse Rate 88 82 87 Respiratory Rate 28 H 20 21 Blood Pressure 110/65 106/72 Pulse Oximetry 100 100 09/09/18 12:10 Temperature Pulse Rate 88 Respiratory Rate 20 Blood Pressure Pulse Oximetry Intake & Output 09/08/18 09/09/18 09/09/18 18:59 06:59 18:59 Intake Total 2165 / 2165 1300 / 1300 Output Total 2710 / 2710 1000 / 1000 Balance -545 / -545 300 / 300 Weight 111.5 kg Intake: IV 2165 / 2165 1300 / 1300 D5W Inj 1,000 ML @ 50 mls/hr IV 1000 / 1000 900 / 900 .CONT .Q20H BRIANNA Rx#:[id number] Azithromycin Inj 500 MG In NS 250 / 250 Inj 250 ML @ 250 mls/hr IV.SIG Q24H BRIANNA Rx#:[id number] Zosyn 4.5 GM Premix 4.5 gm In 200 / 200 200 / 200 100 ml @ 200 mls/hr IV.SIG Q6H BRIANNA Rx#:[id number] Vancomycin Inj 1,500 MG In NS 515 / 515 Inj 500 ML @ 250 mls/hr IV.SIG Q18H BRIANNA Rx#:[id number] Flagyl 500 MG Inj 100 ML @ 100 200 / 200 200 / 200 mls/hr IV.SIG Q6H BRIANNA Rx#: [id number] Output: Urine Amount (Catheter) 2550 / 2550 800 / 800 Indwelling Urethral Catheter 2550 / 2550 800 / 800 Gastric Drainage 0 / 0 Left Nare 0 / 0 Wound Drainage 160 / 160 200 / 200 # 1 Left Lower Abdomen 160 / 160 200 / 200 Other: Date of Last Bowel Movement 09/05/18 09/05/18 Lab - Hematology Results 09/08/18 09/09/18 04:20 03:26 WBC 20.9 H 18.0 H RBC 3.17 L 3.19 L Hgb 10.0 L 10.1 L Hct 30.9 L 30.7 L MCV 97.4 96.3 MCH 31.5 31.8 MCHC 32.4 33.0 RDW 15.9 15.6 Plt Count 209 221 MPV 10.0 9.9 Neut % (Auto) 94.4 H 93.6 H Lymph % (Auto) 2.1 L 2.6 L [place] % (Auto) 2.7 2.9 Eos % (Auto) 0.3 0.4 Baso % (Auto) 0.5 0.5 Neut # (Auto) 19.7 H 16.8 H Lymph # (Auto) 0.4 L 0.5 L [place] # (Auto) 0.6 0.5 Eos # (Auto) 0.1 0.1 Baso # (Auto) 0.1 0.1 WBC Differential . . Differential Comment Auto diff final Auto diff final Lab - Chemistry Results 09/07/18 09/08/18 09/08/18 18:51 00:09 04:20 Sodium 146 H Potassium 3.8 Chloride 111 H Carbon Dioxide 30.5 Anion Gap 5 BUN 26 H Creatinine 1.09 Estimated GFR 65 L POC Glucose 110 120 H Random Glucose 104 Calcium 8.8 Phosphorus Magnesium 2.5 Total Bilirubin 0.8 AST 24 ALT 23 Alkaline Phosphatase 56 Total Protein 5.0 L Albumin 1.6 L 09/08/18 09/08/18 09/09/18 12:07 18:24 00:16 Sodium Potassium Chloride Carbon Dioxide Anion Gap BUN Creatinine Estimated GFR POC Glucose 141 H 143 H 117 H Random Glucose Calcium Phosphorus Magnesium Total Bilirubin AST ALT Alkaline Phosphatase Total Protein Albumin 09/09/18 09/09/18 09/09/18 03:26 03:26 12:29 Sodium 146 H Potassium 3.9 Chloride 111 H Carbon Dioxide 29.1 Anion Gap 6 BUN 23 H Creatinine 1.08 Estimated GFR 65 L POC Glucose 127 H Random Glucose 105 Calcium 8.3 L Phosphorus 2.6 Magnesium Total Bilirubin 0.8 AST 32 ALT 24 Alkaline Phosphatase 61 Total Protein 5.4 L Albumin 1.6 L Imaging: ITS Impressions Abdomen/Bladder Ultrasound 08/25/18 00:00 CONCLUSION: 1. No evidence of hydronephrosis. 2. Bilateral renal cysts, mostly simple, with one cyst demonstrating homogeneous low level echoes, located in the midpole the left kidney and measuring 4 cm. Venous Doppler Study 08/25/18 00:00 CONCLUSION: 1. The study is negative for bilateral lower extremity deep venous thrombosis. Chest CT 09/05/18 00:00 CONCLUSION: 1. 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 2. Right lower lobe cavitary mass. 3. Probably benign left adrenal lesion Head CT 09/05/18 00:00 CONCLUSION: 1. No acute intracranial abnormalities. . Abdomen/Pelvis CT 09/07/18 00:00 CONCLUSION: 1. Status post recent abdominal surgery with free air throughout the abdomen. 2. Mild air-filled loops of small bowel suggestive of a postoperative ileus. 3. Otherwise no other significant changes are seen compared to the prior exam. Chest X-Ray 09/09/18 00:00 CONCLUSION: Unchanged diffuse bilateral infiltrates. Physical Exam: PHYSICAL EXAMINATION: GENERAL: Patient is awake and alert. HEENT: Head is atraumatic. No icterus. Oropharynx intubated. Dry crusted lesions at the upper and lower lip. NECK: No adenopathy. LUNGS: Rhonchi at the bases. HEART: Irregular S1, S2. No murmur audible. ABDOMEN: Obese, soft. EXTREMITIES: No clubbing, cyanosis, 1+ nonpitting edema. SKIN: No rash. ecchymoses at hands and legs. NEUROLOGIC: No gross focal finding. PSYCHIATRIC: Calm. Assessment and Plan - Plan IMPRESSION: Perforated viscus. Status post right hemicolectomy. Pneumonia. Probable community-acquired. Possible cause of blood culture positive with Haemophilus. Cavitary nodule noted in the right lower lung. ? Etiology. 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 Chest x-ray has diffuse bilateral infiltrates. Altered mental status. Improved. Leukocytosis. Improving. Crusted lesion on the lip is very likely herpetic lesions. Clinically looks stable. RECOMMENDATIONS: Continue Zosyn. Continue vancomycin. Continue Flagyl. Stop azithromycin. Add micafungin for fungal coverage. Continue topical acyclovir. Monitor white blood cell count. Monitor clinical status. Monitor temperature. D/W RN. Discussed with at bedside.
--- NOTE | 2018-09-09 18:20 | P.PN ---
Subjective Interval history: Alert and on O2 3 L. No SOB at rest. No Fever. weak in legs still. Physical Exam Vital signs: Vital Signs 09/08/18 18:30 09/08/18 19:00 09/08/18 20:00 Temperature Pulse Rate 95 H 89 91 H Respiratory Rate 28 H 20 20 Blood Pressure 128/65 Pulse Oximetry 100 100 100 09/08/18 20:18 09/08/18 21:00 09/08/18 21:34 Temperature Pulse Rate 96 H 89 Respiratory Rate 19 20 Blood Pressure Pulse Oximetry 100 100 99 09/08/18 22:00 09/08/18 23:00 09/08/18 23:43 Temperature Pulse Rate 82 87 87 Respiratory Rate 18 21 23 Blood Pressure 102/62 Pulse Oximetry 98 94 L 99 09/09/18 00:00 09/09/18 01:00 09/09/18 01:27 Temperature 98.6 F Pulse Rate 85 77 98 H Respiratory Rate 19 18 22 Blood Pressure 104/60 104/60 Pulse Oximetry 99 100 100 09/09/18 02:00 09/09/18 02:21 09/09/18 03:00 Temperature Pulse Rate 90 84 90 Respiratory Rate 28 H 20 22 Blood Pressure 99/63 L 106/59 L Pulse Oximetry 85 L 99 100 09/09/18 03:14 09/09/18 04:00 09/09/18 04:30 Temperature 98.6 F Pulse Rate 86 81 94 H Respiratory Rate 20 16 18 Blood Pressure 124/78 126/66 Pulse Oximetry 100 100 09/09/18 04:32 09/09/18 05:00 09/09/18 06:00 Temperature Pulse Rate 96 H 91 H Respiratory Rate 31 H 25 H Blood Pressure 120/75 Pulse Oximetry 95 84 L 99 09/09/18 06:03 09/09/18 07:00 09/09/18 08:00 Temperature 97.7 F Pulse Rate 91 H 83 87 Respiratory Rate 21 18 19 Blood Pressure 135/72 99/60 L Pulse Oximetry 99 94 L 99 09/09/18 08:22 09/09/18 08:51 09/09/18 09:00 Temperature Pulse Rate 88 82 87 Respiratory Rate 28 H 20 21 Blood Pressure 110/65 106/72 Pulse Oximetry 100 100 09/09/18 10:00 09/09/18 11:00 09/09/18 12:00 Temperature 97.6 F Pulse Rate 93 H 87 85 Respiratory Rate 19 18 17 Blood Pressure 129/65 117/74 103/64 Pulse Oximetry 96 99 100 09/09/18 12:10 09/09/18 13:00 09/09/18 14:00 Temperature Pulse Rate 88 106 H 93 H Respiratory Rate 20 31 H 20 Blood Pressure 126/95 H 109/70 Pulse Oximetry 87 L 91 L 09/09/18 15:00 09/09/18 16:00 09/09/18 16:08 Temperature 97.9 F Pulse Rate 81 93 H 89 Respiratory Rate 17 25 H 17 Blood Pressure 123/76 133/79 Pulse Oximetry 97 95 09/09/18 17:00 Temperature Pulse Rate 93 H Respiratory Rate 22 Blood Pressure 116/66 Pulse Oximetry 94 L Intake & Output 09/08/18 09/09/18 09/09/18 18:59 06:59 18:59 Intake Total 2165 / 2165 1300 / 1300 300 / 300 Output Total 2710 / 2710 1000 / 1000 Balance -545 / -545 300 / 300 300 / 300 Weight 111.5 kg Intake: IV 2165 / 2165 1300 / 1300 300 / 300 D5W Inj 1,000 ML @ 50 mls/hr IV 1000 / 1000 900 / 900 .CONT .Q20H BRIANNA Rx#:[id number] Azithromycin Inj 500 MG In NS 250 / 250 Inj 250 ML @ 250 mls/hr IV.SIG Q24H B[facility]ANNA Rx#:[id number] Zosyn 4.5 GM Premix 4.5 gm In 200 / 200 200 / 200 100 / 100 100 ml @ 200 mls/hr IV.SIG Q6H B[facility]ANNA Rx#:[id number] Vancomycin Inj 1,500 MG In NS 515 / 515 Inj 500 ML @ 250 mls/hr IV.SIG Q18H BRIANNA Rx#:[id number] Flagyl 500 MG Inj 100 ML @ 100 200 / 200 200 / 200 200 / 200 mls/hr IV.SIG Q6H BRIANNA Rx#: [id number] Output: Urine Amount (Catheter) 2550 / 2550 800 / 800 Indwelling Urethral Catheter 2550 / 2550 800 / 800 Gastric Drainage 0 / 0 Left Nare 0 / 0 Wound Drainage 160 / 160 200 / 200 # 1 Left Lower Abdomen 160 / 160 200 / 200 Other: Date of Last Bowel Movement 11/09/05/18 09/05/18 Narrative: Alert and awake GENERAL: Obese Elderly W/M SKIN: Warm and dry. HEAD: Atraumatic. Normocephalic. EYES: Pupils equal and round. No scleral icterus. No injection or drainage. ENT: No nasal bleeding or discharge. Mucous membranes pink and moist. NECK: Trachea midline. No JVD. CARDIOVASCULAR: Regular rate and rhythm. RESPIRATORY: No accessory muscle use.Occ Basal crackles. Breath sounds equal bilaterally. GASTROINTESTINAL: Abdomen soft, non-tender, nondistended. Hepatic and splenic margins not palpable. MUSCULOSKELETAL: Extremities without clubbing, cyanosis,but has 2 + edema. No obvious deformities. NEUROLOGICAL: Awake and alert. No obvious cranial nerve deficits. Motor :with weakness of Limbs. Normal speech. PSYCHIATRIC: Appropriate mood and affect. - Urinary Catheter Management Indwelling Temp Sensing Catheter Cath placed during this visit: yes, but has since been removed by the nurse Reason for continuing: Decision to DC catheter Insertion date: 08/25/18 Insertion time: 14:20 Removal date: 08/29/18 Removal time: 12:30 Indwelling Urethral Catheter Cath placed during this visit: yes Reason for continuing: Hourly intake/output Insertion date: 09/06/18 Insertion time: 12:00 Results - Labs CBC & Chem 7: 09/09/18 03:26 09/09/18 03:26 Laboratory Results - last 24 hr 09/06/18 09/08/18 09/09/18 12:46 18:24 00:10 WBC RBC Hgb Hct MCV MCH MCHC RDW Plt Count MPV Neut % (Auto) Lymph % (Auto) [place] % (Auto) Eos % (Auto) Baso % (Auto) Neut # (Auto) Lymph # (Auto) [place] # (Auto) Eos # (Auto) Baso # (Auto) WBC Differential Differential Comment Sodium Potassium Chloride Carbon Dioxide Anion Gap BUN Creatinine Estimated GFR POC Glucose 143 H Random Glucose Calcium Phosphorus Total Bilirubin AST ALT Alkaline Phosphatase Total Protein Albumin Vancomycin Trough 19.0 H MTS Gel Crossmatch See Detail 09/09/18 09/09/18 09/09/18 00:16 03:26 03:26 WBC 18.0 H RBC 3.19 L Hgb 10.1 L Hct 30.7 L MCV 96.3 MCH 31.8 MCHC 33.0 RDW 15.6 Plt Count 221 MPV 9.9 Neut % (Auto) 93.6 H Lymph % (Auto) 2.6 L [place] % (Auto) 2.9 Eos % (Auto) 0.4 Baso % (Auto) 0.5 Neut # (Auto) 16.8 H Lymph # (Auto) 0.5 L [place] # (Auto) 0.5 Eos # (Auto) 0.1 Baso # (Auto) 0.1 WBC Differential . Differential Comment Auto diff final Sodium 146 H Potassium 3.9 Chloride 111 H Carbon Dioxide 29.1 Anion Gap 6 BUN 23 H Creatinine 1.08 Estimated GFR 65 L POC Glucose 117 H Random Glucose 105 Calcium 8.3 L Phosphorus Total Bilirubin 0.8 AST 32 ALT 24 Alkaline Phosphatase 61 Total Protein 5.4 L Albumin 1.6 L Vancomycin Trough MTS Gel Crossmatch 09/09/18 09/09/18 03:26 12:29 WBC RBC Hgb Hct MCV MCH MCHC RDW Plt Count MPV Neut % (Auto) Lymph % (Auto) [place] % (Auto) Eos % (Auto) Baso % (Auto) Neut # (Auto) Lymph # (Auto) [place] # (Auto) Eos # (Auto) Baso # (Auto) WBC Differential Differential Comment Sodium Potassium Chloride Carbon Dioxide Anion Gap BUN Creatinine Estimated GFR POC Glucose 127 H Random Glucose Calcium Phosphorus 2.6 Total Bilirubin AST ALT Alkaline Phosphatase Total Protein Albumin Vancomycin Trough MTS Gel Crossmatch - Imaging Impressions Chest X-Ray 09/09/18 00:00 CONCLUSION: Unchanged diffuse bilateral infiltrates. Assessment and Plan - Assessment (1) COPD (chronic obstructive pulmonary disease) Code(s): J44.9 - Chronic obstructive pulmonary disease, unspecified Status: Acute (2) Severe sepsis Code(s): A41.9 - Sepsis, unspecified organism; R65.20 - Severe sepsis without septic shock Status: Acute (3) Pneumonia Code(s): J18.9 - Pneumonia, unspecified organism Status: Acute (4) Acute respiratory failure with hypoxia and hypercapnia Code(s): J96.01 - Acute respiratory failure with hypoxia; J96.02 - Acute respiratory failure with hypercapnia Status: Acute (5) Lactic acidosis Code(s): E87.2 - Acidosis Status: Acute (6) Atrial fibrillation with rapid ventricular response Code(s): I48.91 - Unspecified atrial fibrillation Status: Acute (7) Acute kidney injury Code(s): N17.9 - Acute kidney failure, unspecified Status: Acute (8) Chronic steroid use Status: Chronic (9) Hypertension Code(s): I10 - Essential (primary) hypertension Status: Chronic (10) Pulmonary cavitary lesion Code(s): J98.4 - Other disorders of lung Status: Acute - Plan 1. Cont on Home CPAP ,FIO2 28 % at HS 2. O2 N/C 5 L daytime and wean 3. Duoneb nebs q6h 4. CBC,BMP 5. Continue antibiotics per ID . 6. D/C Prednisone 7. Continue Eliquis 5 mg BID. 8. Breo 200/25 Mcg, 1 puff daily 9. EzPAP with Nebs qid. 10. Cont lasix 20 mg daily (3) Pneumonia Qualifiers: Pneumonia type: due to unspecified organism Laterality: bilateral Lung location: unspecified part of lung Qualified Code(s): J18.9 - Pneumonia, unspecified organism (9) Hypertension Qualifiers: Hypertension type: essential hypertension Qualified Code(s): I10 - Essential (primary) hypertension
[2018-09-10] MEDS: Dextrose 5% in Water Inj 1,000 ML IV.CONT SCH ×3 (00:19→21:33)
[2018-09-10] MEDS: Insulin NovoLOG Aspart Correctional Sugar Inj SQ SCH ×2 (00:20→08:50)
[2018-09-10] MEDS: Vancomycin Inj 1,750 MG in Sodium Chlor 0.9% Inj 500 ML IV.SIG SCH (01:11)
[2018-09-10] MEDS: Oral Hygiene Kit OROPHARYNG SCH ×3 (04:10→16:37)
[2018-09-10] MEDS: Piperacil/Tazo 4.5 GM Premix 4.5 GM/100 ML BAG IV.SIG SCH ×4 (06:13→22:37)
[2018-09-10] MEDS: Artificial Tears Opth Drops 15 ML Bottle EACH EYE SCH ×3 (06:14→22:37)
--- NOTE | 2018-09-10 07:32 | P.PNGS ---
Subjective Patient reports: feels better (no nausea) Physical Exam Vital signs: Vital Signs 09/09/18 08:00 09/09/18 08:22 09/09/18 08:51 Temperature 97.7 F Pulse Rate 87 88 82 Respiratory Rate 19 28 H 20 Blood Pressure 110/65 Pulse Oximetry 99 100 09/09/18 09:00 09/09/18 10:00 09/09/18 11:00 Temperature Pulse Rate 87 93 H 87 Respiratory Rate 21 19 18 Blood Pressure 106/72 129/65 117/74 Pulse Oximetry 100 96 99 09/09/18 12:00 09/09/18 12:10 09/09/18 13:00 Temperature 97.6 F Pulse Rate 85 88 106 H Respiratory Rate 17 20 31 H Blood Pressure 103/64 126/95 H Pulse Oximetry 100 87 L 09/09/18 14:00 09/09/18 15:00 09/09/18 16:00 Temperature 97.9 F Pulse Rate 93 H 81 93 H Respiratory Rate 20 17 25 H Blood Pressure 109/70 123/76 133/79 Pulse Oximetry 91 L 97 95 09/09/18 16:08 09/09/18 17:00 09/09/18 18:00 Temperature Pulse Rate 89 93 H 94 H Respiratory Rate 17 22 20 Blood Pressure 116/66 112/63 Pulse Oximetry 94 L 95 09/09/18 19:00 09/09/18 20:00 09/09/18 20:35 Temperature 97.7 F Pulse Rate 95 H 89 96 H Respiratory Rate 22 21 16 Blood Pressure 112/66 130/64 Pulse Oximetry 94 L 96 09/09/18 21:00 09/09/18 22:00 09/09/18 23:00 Temperature Pulse Rate 83 90 82 Respiratory Rate 17 26 H 17 Blood Pressure 99/58 L 106/62 114/71 Pulse Oximetry 96 96 97 09/10/18 00:00 09/10/18 01:00 09/10/18 01:13 Temperature 97.8 F Pulse Rate 81 84 Respiratory Rate 18 22 Blood Pressure 104/58 L 100/62 Pulse Oximetry 96 97 96 09/10/18 02:00 09/10/18 03:00 09/10/18 03:05 Temperature Pulse Rate 77 90 90 Respiratory Rate 17 20 16 Blood Pressure 108/60 112/73 Pulse Oximetry 95 95 09/10/18 03:49 09/10/18 04:00 09/10/18 05:00 Temperature 97.6 F Pulse Rate 81 82 Respiratory Rate 18 19 Blood Pressure 103/62 109/62 Pulse Oximetry 96 96 96 09/10/18 06:00 Temperature Pulse Rate 87 Respiratory Rate 19 Blood Pressure 115/70 Pulse Oximetry 93 L Intake & Output 09/09/18 09/10/18 09/10/18 18:59 06:59 18:59 Intake Total 400 / 400 300 / 300 Output Total 850 / 850 785 / 785 Balance -450 / -450 -485 / -485 Weight 111.7 kg Intake: IV 400 / 400 300 / 300 Zosyn 4.5 GM Premix 4.5 gm In 200 / 200 100 / 100 100 ml @ 200 mls/hr IV.SIG Q6H BRIANNA Rx#:[id number] Flagyl 500 MG Inj 100 ML @ 100 200 / 200 200 / 200 mls/hr IV.SIG Q6H BRIANNA Rx#: [id number] Output: Stool 300 / 300 Urine Amount (Catheter) 550 / 550 775 / 775 Indwelling Urethral Catheter 550 / 550 775 / 775 Wound Drainage # 1 Left Lower Abdomen Other: Date of Last Bowel Movement 09/05/18 09/05/18 - Routine Abdominal Exam Present: soft (jaiden good sxn, james yellow) - Urinary Catheter Management Indwelling Temp Sensing Catheter Cath placed during this visit: yes, but has since been removed by the nurse Reason for continuing: Decision to DC catheter Insertion date: 08/25/18 Insertion time: 14:20 Removal date: 08/29/18 Removal time: 12:30 Indwelling Urethral Catheter Cath placed during this visit: yes Reason for continuing: Hourly intake/output Insertion date: 09/06/18 Insertion time: 12:00 Results - Labs 09/09/18 03:26 09/09/18 03:26 Laboratory Results - last 24 hr 09/06/18 09/09/18 09/09/18 12:46 03:26 12:29 POC Glucose 127 H Phosphorus 2.6 MTS Gel Crossmatch See Detail 09/09/18 09/09/18 09/10/18 18:46 23:38 06:28 POC Glucose 136 H 126 H 125 H Phosphorus MTS Gel Crossmatch - Imaging Imaging: ITS Impressions Abdomen/Bladder Ultrasound 08/25/18 00:00 CONCLUSION: 1. No evidence of hydronephrosis. 2. Bilateral renal cysts, mostly simple, with one cyst demonstrating homogeneous low level echoes, located in the midpole the left kidney and measuring 4 cm. Venous Doppler Study 08/25/18 00:00 CONCLUSION: 1. The study is negative for bilateral lower extremity deep venous thrombosis. Chest CT 09/05/18 00:00 CONCLUSION: 1. 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 2. Right lower lobe cavitary mass. 3. Probably benign left adrenal lesion Head CT 09/05/18 00:00 CONCLUSION: 1. No acute intracranial abnormalities. . Abdomen/Pelvis CT 09/07/18 00:00 CONCLUSION: 1. Status post recent abdominal surgery with free air throughout the abdomen. 2. Mild air-filled loops of small bowel suggestive of a postoperative ileus. 3. Otherwise no other significant changes are seen compared to the prior exam. Chest X-Ray 09/09/18 00:00 CONCLUSION: Unchanged diffuse bilateral infiltrates. 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 PT ok for blood thinner remove NG tube huang for i and o monitor labs [place]
[2018-09-10 07:33] LABS: Alanine Aminotransferase 26 U/L (12-78); Albumin 1.5 g/dL (3.4-5.0); Alkaline Phosphatase 66 U/L (45-117); Anion Gap 7 meq/L (5-15); Aspartate Aminotransferase 28 U/L (15-37); Blood Urea Nitrogen 23 mg/dL (7-18); Calcium 8.4 mg/dL (8.5-10.1); Carbon Dioxide 30.4 meq/L (21.0-32.0); Chloride 112 meq/L (98-107); Glomerular Filtration Rate 74 mL/min (>89); Glucose,Random 114 mg/dL (74-106); Sodium 149 meq/L (136-145); Total Protein 4.9 g/dL (6.4-8.2)
[2018-09-10 08:01] LABS: Potassium 2.7 meq/L (3.5-5.1)
[2018-09-10] MEDS: Potassium Chlor 20 mEq Premix 20 MEQ/100 ML PIGGYBACK IV.SIG PRN ×3 (08:17→16:57)
[2018-09-10] MEDS: Potassium Phosphate 500 MG Soluble Tablet PO PRN (08:18)
[2018-09-10] MEDS: Lactobacillus Acidophilus/L. Spores Tablet PO SCH ×2 (08:35→21:14)
[2018-09-10] MEDS: Senna/Docusate Sodium 8.6/50 MG Tablet PO SCH ×2 (08:35→21:34)
[2018-09-10] MEDS: Chlorhexidine 0.12% Oral Kit 15 ML UDC OROPHARYNG SCH ×2 (08:39→21:34)
--- NOTE | 2018-09-10 09:39 | P.PNNP ---
Subjective Interval history: patient is sitting on a chair. Hypernatremia is worse. Hypokalemia is noted. Physical Exam Vital signs: Vital Signs 09/09/18 10:00 09/09/18 11:00 09/09/18 12:00 Temperature 97.6 F Pulse Rate 93 H 87 85 Respiratory Rate 19 18 17 Blood Pressure 129/65 117/74 103/64 Pulse Oximetry 96 99 100 09/09/18 12:10 09/09/18 13:00 09/09/18 14:00 Temperature Pulse Rate 88 106 H 93 H Respiratory Rate 20 31 H 20 Blood Pressure 126/95 H 109/70 Pulse Oximetry 87 L 91 L 09/09/18 15:00 09/09/18 16:00 09/09/18 16:08 Temperature 97.9 F Pulse Rate 81 93 H 89 Respiratory Rate 17 25 H 17 Blood Pressure 123/76 133/79 Pulse Oximetry 97 95 09/09/18 17:00 09/09/18 18:00 09/09/18 19:00 Temperature Pulse Rate 93 H 94 H 95 H Respiratory Rate 22 20 22 Blood Pressure 116/66 112/63 112/66 Pulse Oximetry 94 L 95 94 L 09/09/18 20:00 09/09/18 20:35 09/09/18 21:00 Temperature 97.7 F Pulse Rate 89 96 H 83 Respiratory Rate 21 16 17 Blood Pressure 130/64 99/58 L Pulse Oximetry 96 96 09/09/18 22:00 09/09/18 23:00 09/10/18 00:00 Temperature 97.8 F Pulse Rate 90 82 81 Respiratory Rate 26 H 17 18 Blood Pressure 106/62 114/71 104/58 L Pulse Oximetry 96 97 96 09/10/18 01:00 09/10/18 01:13 09/10/18 02:00 Temperature Pulse Rate 84 77 Respiratory Rate 22 17 Blood Pressure 100/62 108/60 Pulse Oximetry 97 96 95 09/10/18 03:00 09/10/18 03:05 09/10/18 03:49 Temperature Pulse Rate 90 90 Respiratory Rate 20 16 Blood Pressure 112/73 Pulse Oximetry 95 96 09/10/18 04:00 09/10/18 05:00 09/10/18 06:00 Temperature 97.6 F Pulse Rate 81 82 87 Respiratory Rate 18 19 19 Blood Pressure 103/62 109/62 115/70 Pulse Oximetry 96 96 93 L 09/10/18 09:00 Temperature Pulse Rate 101 H Respiratory Rate 16 Blood Pressure Pulse Oximetry Intake & Output 09/09/18 09/10/18 09/10/18 18:59 06:59 18:59 Intake Total 400 / 400 300 / 300 3754.5 / 3754.5 Output Total 850 / 850 785 / 785 Balance -450 / -450 -485 / -485 3754.5 / 3754.5 Weight 111.7 kg Intake: IV 400 / 400 300 / 300 3754.5 / 3754.5 D5W Inj 1,000 ML @ 84 mls/hr IV 1000 / 1000 .CONT .[id number] BRIANNA Rx#:[id number] Zosyn 4.5 GM Premix 4.5 gm In 200 / 200 100 / 100 100 / 100 100 ml @ 200 mls/hr IV.SIG Q6H BRIANNA Rx#:[id number] KCl 20 mEq Premix Inj 20 meq In 100 / 100 100 ml @ 50 mls/hr IV.SIG Q2H PRN Rx#:[id number] Vancomycin Inj 1,750 MG In NS 517.5 / 517.5 Inj 500 ML @ 250 mls/hr IV.SIG Q24H BRIANNA Rx#:[id number] Flagyl 500 MG Inj 100 ML @ 100 200 / 200 200 / 200 mls/hr IV.SIG Q6H BRIANNA Rx#: [id number] Cardene 20 mg/NS 200 ml Premix 172 / 172 20 mg In 200 ml @ 5 MG/HR 50 mls/hr IV.SIG TITRATE PRN Rx#: [id number] Output: Stool 300 / 300 Urine Amount (Catheter) 550 / 550 775 / 775 Indwelling Urethral Catheter 550 / 550 775 / 775 Wound Drainage # 1 Left Lower Abdomen Other: Date of Last Bowel Movement 09/05/18 09/05/18 Narrative: GENERAL: Obese Elderly W/M SKIN: Warm and dry. HEAD: Atraumatic. Normocephalic. EYES: Pupils equal and round. No scleral icterus. No injection or drainage. ENT: No nasal bleeding or discharge. Mucous membranes pink and moist. NECK: Trachea midline. No JVD. CARDIOVASCULAR: Regular rate and rhythm. RESPIRATORY: No accessory muscle use.Occ Basal crackles. Breath sounds equal bilaterally. GASTROINTESTINAL: Abdomen soft, non-tender, nondistended. Hepatic and splenic margins not palpable. MUSCULOSKELETAL: Extremities without clubbing, cyanosis,but has 2 + edema. No obvious deformities. NEUROLOGICAL: Does not appear to have focal deficits. - Urinary Catheter Management Indwelling Temp Sensing Catheter Cath placed during this visit: yes, but has since been removed by the nurse Reason for continuing: Decision to DC catheter Insertion date: 08/25/18 Insertion time: 14:20 Removal date: 08/29/18 Removal time: 12:30 Indwelling Urethral Catheter Cath placed during this visit: yes Reason for continuing: Hourly intake/output Insertion date: 09/06/18 Insertion time: 12:00 Assessment and Plan - Assessment (1) Hypernatremia Code(s): E87.0 - Hyperosmolality and hypernatremia Status: Acute Plan: Worse. Increase D5W. Continue Diuril. (2) Leukocytosis Code(s): D72.829 - Elevated white blood cell count, unspecified Status: Acute Qualifiers: Leukocytosis type: unspecified Qualified Code(s): D72.829 - Elevated white blood cell count, unspecified Plan: Has been diagnosed with pneumonia. Also is on steroids. (3) Pneumonia Code(s): J18.9 - Pneumonia, unspecified organism Status: Acute Qualifiers: Pneumonia type: due to unspecified organism Laterality: bilateral Lung location: unspecified part of lung Qualified Code(s): J18.9 - Pneumonia, unspecified organism Plan: Continue antibiotics, ID following. (4) Hypokalemia Code(s): E87.6 - Hypokalemia Status: Acute Plan: replace per protocol. (5) Volvulus Code(s): K56.2 - Volvulus Status: Acute Plan: Volvulus with cecal perforation. s/p surgery.
--- NOTE | 2018-09-10 11:41 | P.PNIM ---
Subjective Interval history: Patient is awake and alert today. Still with profound weakness. He has no complaints. Discussed with RN. Hypokalemic. Hyponatremia is worse today. Physical Exam Vital signs: Vital Signs 09/09/18 12:00 09/09/18 12:10 09/09/18 13:00 Temperature 97.6 F Pulse Rate 85 88 106 H Respiratory Rate 17 20 31 H Blood Pressure 103/64 126/95 H Pulse Oximetry 100 87 L 09/09/18 14:00 09/09/18 15:00 09/09/18 16:00 Temperature 97.9 F Pulse Rate 93 H 81 93 H Respiratory Rate 20 17 25 H Blood Pressure 109/70 123/76 133/79 Pulse Oximetry 91 L 97 95 09/09/18 16:08 09/09/18 17:00 09/09/18 18:00 Temperature Pulse Rate 89 93 H 94 H Respiratory Rate 17 22 20 Blood Pressure 116/66 112/63 Pulse Oximetry 94 L 95 09/09/18 19:00 09/09/18 20:00 09/09/18 20:35 Temperature 97.7 F Pulse Rate 95 H 89 96 H Respiratory Rate 22 21 16 Blood Pressure 112/66 130/64 Pulse Oximetry 94 L 96 09/09/18 21:00 09/09/18 22:00 09/09/18 23:00 Temperature Pulse Rate 83 90 82 Respiratory Rate 17 26 H 17 Blood Pressure 99/58 L 106/62 114/71 Pulse Oximetry 96 96 97 09/10/18 00:00 09/10/18 01:00 09/10/18 01:13 Temperature 97.8 F Pulse Rate 81 84 Respiratory Rate 18 22 Blood Pressure 104/58 L 100/62 Pulse Oximetry 96 97 96 09/10/18 02:00 09/10/18 03:00 09/10/18 03:05 Temperature Pulse Rate 77 90 90 Respiratory Rate 17 20 16 Blood Pressure 108/60 112/73 Pulse Oximetry 95 95 09/10/18 03:49 09/10/18 04:00 09/10/18 05:00 Temperature 97.6 F Pulse Rate 81 82 Respiratory Rate 18 19 Blood Pressure 103/62 109/62 Pulse Oximetry 96 96 96 09/10/18 06:00 09/10/18 07:00 09/10/18 08:00 Temperature 98.0 F Pulse Rate 87 92 H 86 Respiratory Rate 19 18 20 Blood Pressure 115/70 111/81 122/80 Pulse Oximetry 93 L 94 L 95 09/10/18 09:00 Temperature Pulse Rate 104 H Respiratory Rate 25 H Blood Pressure 116/70 Pulse Oximetry 91 L Intake & Output 09/09/18 09/10/18 09/10/18 18:59 06:59 18:59 Intake Total 400 / 400 300 / 300 3754.5 / 3754.5 Output Total 850 / 850 785 / 785 Balance -450 / -450 -485 / -485 3754.5 / 3754.5 Weight 111.7 kg Intake: IV 400 / 400 300 / 300 3754.5 / 3754.5 D5W Inj 1,000 ML @ 84 mls/hr IV 1000 / 1000 .CONT .[id number] BRIANNA Rx#:[id number] Zosyn 4.5 GM Premix 4.5 gm In 200 / 200 100 / 100 100 / 100 100 ml @ 200 mls/hr IV.SIG Q6H BRIANNA Rx#:[id number] KCl 20 mEq Premix Inj 20 meq In 100 / 100 100 ml @ 50 mls/hr IV.SIG Q2H PRN Rx#:[id number] Vancomycin Inj 1,750 MG In NS 517.5 / 517.5 Inj 500 ML @ 250 mls/hr IV.SIG Q24H BRIANNA Rx#:[id number] Flagyl 500 MG Inj 100 ML @ 100 200 / 200 200 / 200 mls/hr IV.SIG Q6H BRIANNA Rx#: [id number] Cardene 20 mg/NS 200 ml Premix 172 / 172 20 mg In 200 ml @ 5 MG/HR 50 mls/hr IV.SIG TITRATE PRN Rx#: [id number] Output: Stool 300 / 300 Urine Amount (Catheter) 550 / 550 775 / 775 Indwelling Urethral Catheter 550 / 550 775 / 775 Wound Drainage # 1 Left Lower Abdomen Other: Date of Last Bowel Movement 09/05/18 09/05/18 09/05/18 Narrative: GENERAL: Elderly and frail male sitting up in bed. CARDIOVASCULAR: Regular rate and rhythm. RESPIRATORY: No accessory muscle use. air movement is fair. Faint crackles at the bases bilaterally. Rest of the lung joel clear to auscultation GASTROINTESTINAL: Abdomen soft, nondistended. Shane dressing in place. Appropriately tender around the surgical site MUSCULOSKELETAL: Extremities without clubbing, cyanosis,but has 2 + edema. NEUROLOGICAL: Profound generalized weakness. - Urinary Catheter Management Indwelling Temp Sensing Catheter Cath placed during this visit: yes, but has since been removed by the nurse Reason for continuing: Decision to DC catheter Insertion date: 08/25/18 Insertion time: 14:20 Removal date: 08/29/18 Removal time: 12:30 Indwelling Urethral Catheter Cath placed during this visit: yes Reason for continuing: Hourly intake/output Insertion date: 09/06/18 Insertion time: 12:00 Results - Labs CBC & Chem 7: 09/09/18 03:26 09/10/18 05:10 Laboratory Results - last 24 hr 09/09/18 09/09/18 09/09/18 12:29 18:46 23:38 Sodium Potassium Chloride Carbon Dioxide Anion Gap BUN Creatinine Estimated GFR POC Glucose 127 H 136 H 126 H Random Glucose Calcium Total Bilirubin AST ALT Alkaline Phosphatase Total Protein Albumin 09/10/18 09/10/18 05:10 06:28 Sodium 149 H Potassium 2.7 L* D Chloride 112 H Carbon Dioxide 30.4 Anion Gap 7 BUN 23 H Creatinine 0.97 Estimated GFR 74 L POC Glucose 125 H Random Glucose 114 H Calcium 8.4 L Total Bilirubin 0.6 AST 28 ALT 26 Alkaline Phosphatase 66 Total Protein 4.9 L Albumin 1.5 L Assessment and Plan - Plan 83 Y/O male with acute respiratory failure secondary to pneumonia. His ICU course is somewhat prolonged. Has had issues with agitation at night and not wearing bipap. Pneumonia is persisting. His antibiotics were changed. He is showing some improvement. Pulmonology following. Continue to treat pneumonia per ID. He is very deconditioned and will likely need rehab. His 's goal [place]. Other active issues include hypernatremia and ing. 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 Community acquired pneumonia Perforated viscus Blood cultures from 08/25 grew Haemophilus influenza sensitive to penicillins/ cephalosporins, s/p ceftriaxone Repeat blood cultures sent on 08/27 negative thus far Sputum and urine cultures no growth to date Flu and MRSA swabs negative Legionella and pneumococcus negative ID following for antibiotic management. 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 NG tube discontinued, diet advanced to liquid diet per general surgery. Pantoprazole for GI prophylaxis Docusate sodium/senna 1 tablet twice daily for bowel regimen WESLEY, resolved Hypernatremia BID lasix dosing, hold No urine eosinophils noted Renal ultrasound - bilateral renal cyst. Possible hemorrhagic left renal cyst Avoid nephrotoxic medication Monitor urine output Accurate I's and O's Nephrology following. Continue D5W per nephrology. Follow-up BMP in a.m. Atrial fibrillation with rapid ventricular response currently rate controlled Elevated troponin History of essential hypertension Hyperlipidemia Lactic acidosis Trop 0.27 on admission, most recent 0.08, no longer trending Echo: EF 45%, RV enlargement/ dysfunction, PAP 38 mm Hg Continue beta-tristian Eliquis restarted. Hypokalemia -Replace per ICU protocol. Check mag Delirium: Likely related to medical conditions and ICU: Much improved. -Delirium precautions (lights on/ shades up during the day, limit nighttime disruptions, frequent reorientation, use hearing aids) Prophylaxis -GI -pantoprazole -DVT -SCD/apixaban Discharge Planning: Continue care in the ICU.
--- NOTE | 2018-09-10 12:07 | P.PNID ---
Subjective Remarks: Patient is awake and alert. He is tired. Reports that he did not sleep last night. reports that he was not comfortable with the CPAP machine that was applied overnight. Plans to feed today. Currently on nasal cannula. Post right hemicolectomy for perforated viscus. White blood cell count is improving. Mycoplasma IgG is positive. Mycoplasma IgM is negative. Chlamydia IgG positive. Legionella and strep antigen were negative. 83-year-old white male was admitted to the hospital on 08/25/2018. Patient presented with shortness of breath. Chest x-ray showed bilateral infiltrates and white blood cell count was elevated. 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 History of lithotripsy History of arthroplasty of the knee History of trigeminal neuralgia. Allergies/Adverse Reactions: Allergies amiodarone Allergy (Intermediate, Verified 11/15/17 10:35) BLACK LUNGS atorvastatin [From Lipitor] Adverse Reaction (Unknown, Verified 09/05/18 15:05) Joint Pain fluvastatin [From Lescol] Adverse Reaction (Unknown, Verified 09/05/18 15:05) UNKNOWN Sulfa (Sulfonamide Antibiotics) Adverse Reaction (Verified 09/05/18 15:05) Abdominal Pain Objective Vital Signs 09/09/18 12:10 09/09/18 13:00 09/09/18 14:00 Temperature Pulse Rate 88 106 H 93 H Respiratory Rate 20 31 H 20 Blood Pressure 126/95 H 109/70 Pulse Oximetry 87 L 91 L 09/09/18 15:00 09/09/18 16:00 09/09/18 16:08 Temperature 97.9 F Pulse Rate 81 93 H 89 Respiratory Rate 17 25 H 17 Blood Pressure 123/76 133/79 Pulse Oximetry 97 95 09/09/18 17:00 09/09/18 18:00 09/09/18 19:00 Temperature Pulse Rate 93 H 94 H 95 H Respiratory Rate 22 20 22 Blood Pressure 116/66 112/63 112/66 Pulse Oximetry 94 L 95 94 L 09/09/18 20:00 09/09/18 20:35 09/09/18 21:00 Temperature 97.7 F Pulse Rate 89 96 H 83 Respiratory Rate 21 16 17 Blood Pressure 130/64 99/58 L Pulse Oximetry 96 96 09/09/18 22:00 09/09/18 23:00 09/10/18 00:00 Temperature 97.8 F Pulse Rate 90 82 81 Respiratory Rate 26 H 17 18 Blood Pressure 106/62 114/71 104/58 L Pulse Oximetry 96 97 96 09/10/18 01:00 09/10/18 01:13 09/10/18 02:00 Temperature Pulse Rate 84 77 Respiratory Rate 22 17 Blood Pressure 100/62 108/60 Pulse Oximetry 97 96 95 09/10/18 03:00 09/10/18 03:05 09/10/18 03:49 Temperature Pulse Rate 90 90 Respiratory Rate 20 16 Blood Pressure 112/73 Pulse Oximetry 95 96 09/10/18 04:00 09/10/18 05:00 09/10/18 06:00 Temperature 97.6 F Pulse Rate 81 82 87 Respiratory Rate 18 19 19 Blood Pressure 103/62 109/62 115/70 Pulse Oximetry 96 96 93 L 09/10/18 07:00 09/10/18 08:00 09/10/18 09:00 Temperature 98.0 F Pulse Rate 92 H 86 104 H Respiratory Rate 18 20 25 H Blood Pressure 111/81 122/80 116/70 Pulse Oximetry 94 L 95 91 L Intake & Output 09/09/18 09/10/18 09/10/18 18:59 06:59 18:59 Intake Total 400 / 400 300 / 300 3754.5 / 3754.5 Output Total 850 / 850 785 / 785 Balance -450 / -450 -485 / -485 3754.5 / 3754.5 Weight 111.7 kg Intake: IV 400 / 400 300 / 300 3754.5 / 3754.5 D5W Inj 1,000 ML @ 84 mls/hr IV 1000 / 1000 .CONT .[id number] BRIANNA Rx#:[id number] Zosyn 4.5 GM Premix 4.5 gm In 200 / 200 100 / 100 100 / 100 100 ml @ 200 mls/hr IV.SIG Q6H BRIANNA Rx#:[id number] KCl 20 mEq Premix Inj 20 meq In 100 / 100 100 ml @ 50 mls/hr IV.SIG Q2H PRN Rx#:[id number] Vancomycin Inj 1,750 MG In NS 517.5 / 517.5 Inj 500 ML @ 250 mls/hr IV.SIG Q24H BRIANNA Rx#:[id number] Flagyl 500 MG Inj 100 ML @ 100 200 / 200 200 / 200 mls/hr IV.SIG Q6H BRIANNA Rx#: [id number] Cardene 20 mg/NS 200 ml Premix 172 / 172 20 mg In 200 ml @ 5 MG/HR 50 mls/hr IV.SIG TITRATE PRN Rx#: [id number] Output: Stool 300 / 300 Urine Amount (Catheter) 550 / 550 775 / 775 Indwelling Urethral Catheter 550 / 550 775 / 775 Wound Drainage # 1 Left Lower Abdomen Other: Date of Last Bowel Movement 09/05/18 09/05/18 09/05/18 Lab - Hematology Results 09/09/18 03:26 WBC 18.0 H RBC 3.19 L Hgb 10.1 L Hct 30.7 L MCV 96.3 MCH 31.8 MCHC 33.0 RDW 15.6 Plt Count 221 MPV 9.9 Neut % (Auto) 93.6 H Lymph % (Auto) 2.6 L [place] % (Auto) 2.9 Eos % (Auto) 0.4 Baso % (Auto) 0.5 Neut # (Auto) 16.8 H Lymph # (Auto) 0.5 L [place] # (Auto) 0.5 Eos # (Auto) 0.1 Baso # (Auto) 0.1 WBC Differential . Differential Comment Auto diff final Lab - Chemistry Results 09/08/18 09/08/18 09/09/18 12:07 18:24 00:16 Sodium Potassium Chloride Carbon Dioxide Anion Gap BUN Creatinine Estimated GFR POC Glucose 141 H 143 H 117 H Random Glucose Calcium Phosphorus Total Bilirubin AST ALT Alkaline Phosphatase Total Protein Albumin 09/09/18 09/09/18 09/09/18 03:26 03:26 12:29 Sodium 146 H Potassium 3.9 Chloride 111 H Carbon Dioxide 29.1 Anion Gap 6 BUN 23 H Creatinine 1.08 Estimated GFR 65 L POC Glucose 127 H Random Glucose 105 Calcium 8.3 L Phosphorus 2.6 Total Bilirubin 0.8 AST 32 ALT 24 Alkaline Phosphatase 61 Total Protein 5.4 L Albumin 1.6 L 09/09/18 09/09/18 09/10/18 18:46 23:38 05:10 Sodium 149 H Potassium 2.7 L* D Chloride 112 H Carbon Dioxide 30.4 Anion Gap 7 BUN 23 H Creatinine 0.97 Estimated GFR 74 L POC Glucose 136 H 126 H Random Glucose 114 H Calcium 8.4 L Phosphorus Total Bilirubin 0.6 AST 28 ALT 26 Alkaline Phosphatase 66 Total Protein 4.9 L Albumin 1.5 L 09/10/18 06:28 Sodium Potassium Chloride Carbon Dioxide Anion Gap BUN Creatinine Estimated GFR POC Glucose 125 H Random Glucose Calcium Phosphorus Total Bilirubin AST ALT Alkaline Phosphatase Total Protein Albumin Imaging: ITS Impressions Abdomen/Bladder Ultrasound 08/25/18 00:00 CONCLUSION: 1. No evidence of hydronephrosis. 2. Bilateral renal cysts, mostly simple, with one cyst demonstrating homogeneous low level echoes, located in the midpole the left kidney and measuring 4 cm. Venous Doppler Study 08/25/18 00:00 CONCLUSION: 1. The study is negative for bilateral lower extremity deep venous thrombosis. Chest CT 09/05/18 00:00 CONCLUSION: 1. 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 2. Right lower lobe cavitary mass. 3. Probably benign left adrenal lesion Head CT 09/05/18 00:00 CONCLUSION: 1. No acute intracranial abnormalities. . Abdomen/Pelvis CT 09/07/18 00:00 CONCLUSION: 1. Status post recent abdominal surgery with free air throughout the abdomen. 2. Mild air-filled loops of small bowel suggestive of a postoperative ileus. 3. Otherwise no other significant changes are seen compared to the prior exam. Chest X-Ray 09/09/18 00:00 CONCLUSION: Unchanged diffuse bilateral infiltrates. Physical Exam: PHYSICAL EXAMINATION: GENERAL: Patient is awake and alert. HEENT: Head is atraumatic. No icterus. Oropharynx intubated. Dry crusted lesions at the upper and lower lip. NECK: No adenopathy. LUNGS: Rhonchi at the bases. HEART: Irregular S1, S2. No murmur audible. ABDOMEN: Obese, soft. Decreased bowel sounds. DAVID drain has clear serous drainage. EXTREMITIES: No clubbing, cyanosis, 1+ nonpitting edema at the feet. SKIN: No rash. ecchymoses at hands and legs. NEUROLOGIC: No gross focal finding. PSYCHIATRIC: Calm. Assessment and Plan - Plan IMPRESSION: Perforated viscus. Status post right hemicolectomy. Pneumonia. Probable community-acquired. Possible cause of blood culture positive with Haemophilus. Cavitary nodule noted in the right lower lung. ? Etiology. 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 Chest x-ray has diffuse bilateral infiltrates. Altered mental status. Improved. Leukocytosis. Improving. Herpetic lip ulcerations dried and crusted. Clinically looks stable. RECOMMENDATIONS: Continue Zosyn. Continue vancomycin. Continue Flagyl. Change micafungin to fluconazole Continue topical acyclovir. Monitor white blood cell count. Monitor clinical status. Monitor temperature. D/W RN. Discussed with at bedside.
--- NOTE | 2018-09-10 12:15 | P.DIET ---
Nutritional Evaluation Type of nutrition evaluation: follow-up Nutrition consult regarding: Tube Feeding ([facility] d/c'ed) Objective - Diagnosis Sepsis, Pneumonia - Objective % IBW: 160 (IBW = 148#) Body Weight Used for Calculations: IBW (67.3 kg) Energy Needs - Lower Range (kCal/kg): 25 Energy Needs - Upper Range (kCal/kg): 30 Lower Limit kCal/kg (kCals): 1,682 Upper Limit kCal/kg (kCals): 2,019 Lower Limit Protein Factor (Grams per Kg): 1.0 Upper Limit Protein Factor (Grams per Kg): 1.5 Lower Protein Needs (Protein): 67 Upper Protein Needs (Protein): 101 Dietitian Reviewed in Medical Record: Current diet, Curent medications, Intake & Output, Labs, Medical history Diet Order: Clear Liquids, nectar thickened liquids Speech Therapy Recommendations: Yes (mechanical soft, nectar thickened liquids ( 09/10)) Objective Comments: Labs: Na 149, K 2.7, glu 114 Assessment Assessment: Pt s/p exp lap and R hemicolectomy on 09/06. Diet has been advanced to liquids. Will send Glucerna Shakes on trays when diet is advanced. RD to monitor acceptance. Each 8 oz serving provides 220 kcals and 10 gms protein. Labs, wts and clinical course reviewed. Recommendations: Diet per Surgery and ST Glucerna Shakes tid when diet advanced Dietitian to Monitor: Lab values, Supplement acceptance, Intake & Output, Diet tolerance, Weight change, PO Intake, Diet advancement, Swallow recommendations, Medical course
[2018-09-10 13:10] LABS: Magnesium 2.1 mg/dL (1.5-2.5); Potassium 3.3 meq/L (3.5-5.1)
[2018-09-10] MEDS: Pantoprazole Inj 40 MG Vial IV.PUSH SCH (13:15)
--- NOTE | 2018-09-10 18:30 | P.PN ---
Subjective Interval history: Awake and on O2 3 L. No abdominal pains. wants to take a Diet. NG is in. Lasix on hold. Physical Exam Vital signs: Vital Signs 09/09/18 19:00 09/09/18 20:00 09/09/18 20:35 Temperature 97.7 F Pulse Rate 95 H 89 96 H Respiratory Rate 22 21 16 Blood Pressure 112/66 130/64 Pulse Oximetry 94 L 96 09/09/18 21:00 09/09/18 22:00 09/09/18 23:00 Temperature Pulse Rate 83 90 82 Respiratory Rate 17 26 H 17 Blood Pressure 99/58 L 106/62 114/71 Pulse Oximetry 96 96 97 09/10/18 00:00 09/10/18 01:00 09/10/18 01:13 Temperature 97.8 F Pulse Rate 81 84 Respiratory Rate 18 22 Blood Pressure 104/58 L 100/62 Pulse Oximetry 96 97 96 09/10/18 02:00 09/10/18 03:00 09/10/18 03:05 Temperature Pulse Rate 77 90 90 Respiratory Rate 17 20 16 Blood Pressure 108/60 112/73 Pulse Oximetry 95 95 09/10/18 03:49 09/10/18 04:00 09/10/18 05:00 Temperature 97.6 F Pulse Rate 81 82 Respiratory Rate 18 19 Blood Pressure 103/62 109/62 Pulse Oximetry 96 96 96 09/10/18 06:00 09/10/18 07:00 09/10/18 08:00 Temperature 98.0 F Pulse Rate 87 92 H 86 Respiratory Rate 19 18 20 Blood Pressure 115/70 111/81 122/80 Pulse Oximetry 93 L 94 L 96 09/10/18 09:00 09/10/18 10:00 09/10/18 11:00 Temperature Pulse Rate 104 H 110 H 109 H Respiratory Rate 25 H 27 H 27 H Blood Pressure 116/70 114/86 Pulse Oximetry 91 L 93 L 93 L 09/10/18 12:00 09/10/18 13:00 09/10/18 14:00 Temperature 97.6 F Pulse Rate 92 H 101 H 98 H Respiratory Rate 20 21 27 H Blood Pressure 123/71 125/72 110/79 Pulse Oximetry 92 L 94 L 94 L 09/10/18 15:00 09/10/18 16:00 09/10/18 17:00 Temperature 97.6 F Pulse Rate 99 H 94 H 91 H Respiratory Rate 24 20 22 Blood Pressure 128/79 130/71 140/85 Pulse Oximetry 95 94 L 94 L Intake & Output 09/09/18 09/10/18 09/10/18 18:59 06:59 18:59 Intake Total 400 / 400 300 / 300 4354.5 / 4354.5 Output Total 850 / 850 785 / 785 Balance -450 / -450 -485 / -485 4354.5 / 4354.5 Weight 111.7 kg Intake: IV 400 / 400 300 / 300 4354.5 / 4354.5 D5W Inj 1,000 ML @ 84 mls/hr IV 1000 / 1000 .CONT .[id number] [facility] Rx#:[id number] Zosyn 4.5 GM Premix 4.5 gm In 200 / 200 100 / 100 300 / 300 100 ml @ 200 mls/hr IV.SIG Q6H [facility] Rx#:[id number] KCl 20 mEq Premix Inj 20 meq In 300 / 300 100 ml @ 50 mls/hr IV.SIG Q2H PRN Rx#:[id number] Vancomycin Inj 1,750 MG In NS 517.5 / 517.5 Inj 500 ML @ 250 mls/hr IV.SIG Q24H [facility] Rx#:[id number] Flagyl 500 MG Inj 100 ML @ 100 200 / 200 200 / 200 200 / 200 mls/hr IV.SIG Q6H [facility] Rx#: [id number] Cardene 20 mg/NS 200 ml Premix 172 / 172 20 mg In 200 ml @ 5 MG/HR 50 mls/hr IV.SIG TITRATE PRN Rx#: [id number] Output: Stool 300 / 300 Urine Amount (Catheter) 550 / 550 775 / 775 Indwelling Urethral Catheter 550 / 550 775 / 775 Wound Drainage # 1 Left Lower Abdomen Other: Date of Last Bowel Movement 09/05/18 09/05/18 09/10/18 Narrative: GENERAL: Elderly obese male sitting up in bed. CARDIOVASCULAR: Regular rate and rhythm. RESPIRATORY: No accessory muscle use. air movement is fair. crackles at the bases bilaterally. GASTROINTESTINAL: Abdomen soft, nondistended. Shane dressing in place. tender around the surgical site. BS =. MUSCULOSKELETAL: Extremities without clubbing, cyanosis,but has 2 + edema. NEUROLOGICAL: Profound generalized weakness. - Urinary Catheter Management Indwelling Temp Sensing Catheter Cath placed during this visit: yes, but has since been removed by the nurse Reason for continuing: Decision to DC catheter Insertion date: 08/25/18 Insertion time: 14:20 Removal date: 08/29/18 Removal time: 12:30 Indwelling Urethral Catheter Cath placed during this visit: yes Reason for continuing: Hourly intake/output Insertion date: 09/06/18 Insertion time: 12:00 Results - Labs CBC & Chem 7: 09/09/18 03:26 09/10/18 12:30 Laboratory Results - last 24 hr 09/09/18 09/09/18 09/10/18 18:46 23:38 05:10 Sodium 149 H Potassium 2.7 L* D Chloride 112 H Carbon Dioxide 30.4 Anion Gap 7 BUN 23 H Creatinine 0.97 Estimated GFR 74 L POC Glucose 136 H 126 H Random Glucose 114 H Calcium 8.4 L Magnesium Total Bilirubin 0.6 AST 28 ALT 26 Alkaline Phosphatase 66 Total Protein 4.9 L Albumin 1.5 L 09/10/18 09/10/18 06:28 12:30 Sodium Potassium 3.3 L Chloride Carbon Dioxide Anion Gap BUN Creatinine Estimated GFR POC Glucose 125 H Random Glucose Calcium Magnesium 2.1 Total Bilirubin AST ALT Alkaline Phosphatase Total Protein Albumin Assessment and Plan - Assessment (1) COPD (chronic obstructive pulmonary disease) Code(s): J44.9 - Chronic obstructive pulmonary disease, unspecified Status: Acute (2) Severe sepsis Code(s): A41.9 - Sepsis, unspecified organism; R65.20 - Severe sepsis without septic shock Status: Acute (3) Pneumonia Code(s): J18.9 - Pneumonia, unspecified organism Status: Acute (4) Acute respiratory failure with hypoxia and hypercapnia Code(s): J96.01 - Acute respiratory failure with hypoxia; J96.02 - Acute respiratory failure with hypercapnia Status: Acute (5) Lactic acidosis Code(s): E87.2 - Acidosis Status: Acute (6) Atrial fibrillation with rapid ventricular response Code(s): I48.91 - Unspecified atrial fibrillation Status: Acute (7) Acute kidney injury Code(s): N17.9 - Acute kidney failure, unspecified Status: Acute (8) Chronic steroid use Status: Chronic (9) Hypertension Code(s): I10 - Essential (primary) hypertension Status: Chronic (10) Pulmonary cavitary lesion Code(s): J98.4 - Other disorders of lung Status: Acute (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 Cont on Home CPAP ,FIO2 28 % at HS 2. O2 N/C 3 L daytime and wean 3. Duoneb nebs q6h 4. CBC,BMP CXR 5. Continue antibiotics per ID . 6. IV Hydration per Renal. 7. Continue Eliquis 5 mg BID. 8. Breo 200/25 Mcg, 1 puff daily 9. EzPAP with Nebs qid. (3) Pneumonia Qualifiers: Pneumonia type: due to unspecified organism Laterality: bilateral Lung location: unspecified part of lung Qualified Code(s): J18.9 - Pneumonia, unspecified organism (9) Hypertension Qualifiers: Hypertension type: essential hypertension Qualified Code(s): I10 - Essential (primary) hypertension
[2018-09-11 00:43] LABS: Albumin 1.6 g/dL (3.4-5.0); Calcium 8.3 mg/dL (8.5-10.1); Carbon Dioxide 30.5 meq/L (21.0-32.0); Phosphorus 1.6 mg/dL (2.5-4.9); Potassium 3.1 meq/L (3.5-5.1)
[2018-09-11] MEDS: Vancomycin Inj 1,750 MG in Sodium Chlor 0.9% Inj 500 ML IV.SIG SCH (00:44)
[2018-09-11] MEDS: Oral Hygiene Kit OROPHARYNG SCH ×4 (00:45→15:48)
[2018-09-11] MEDS: Potassium Phosphate 500 MG Soluble Tablet PO PRN (03:59)
[2018-09-11] MEDS: Piperacil/Tazo 4.5 GM Premix 4.5 GM/100 ML BAG IV.SIG SCH ×3 (04:06→17:46)
--- NOTE | 2018-09-11 05:15 | XR ---
EXAM DATE: 09/11/2018 4:28 AM EST AGE/SEX: 83 years / Male INDICATIONS: Edema. CLINICAL DATA: This is the patient's subsequent encounter. Patient reports that signs and symptoms h ave been present for 2 weeks and indicates a pain score of Nonresponsive. MEDICAL/SURGICAL HISTORY: . Hypertension. Chronic obstructive pulmonary disease. A-fib. Gamma k nife treatment. . Lithotripsy. COMPARISON: [facility] [place], CHEST 1V SINGLE AP, 09/09/2018. . FINDINGS: A single AP view of the chest demonstrates slight improvement in the bilateral pulmonary infiltrates. Heart remains mildly enlarged. No effusions. CONCLUSION: Slight improvement in the bilateral infiltrates. Electronically signed by: Dionicio Camargo MD 09/11/2018 5:14 AM EST
[2018-09-11 06:16] LABS: Hematocrit 30.6 % (39.0-51.0); Hemoglobin 10.1 gm/dL (13.0-17.0); Mean Corpuscular HGB Conc 33.1 % (32.0-36.0); Mean Corpuscular Hemoglobin 31.7 pg (27.0-34.0); Mean Corpuscular Volume 95.8 fL (80.0-100.0); Mean Platelet Volume 9.3 fL (7.0-11.0); Platelet Count 213 th/mm3 (150-450); Red Cell Distribution Width 15.3 % (11.6-17.2); White Blood Count 14.3 th/mm3 (4.0-11.0)
[2018-09-11 06:47] LABS: Albumin 1.7 g/dL (3.4-5.0); Anion Gap 7 meq/L (5-15); Aspartate Aminotransferase 35 U/L (15-37); Blood Urea Nitrogen 24 mg/dL (7-18); Calcium 8.9 mg/dL (8.5-10.1); Carbon Dioxide 30.4 meq/L (21.0-32.0); Chloride 109 meq/L (98-107); Glomerular Filtration Rate 69 mL/min (>89); Glucose,Random 142 mg/dL (74-106); Sodium 146 meq/L (136-145)
[2018-09-11 06:48] LABS: Alanine Aminotransferase 35 U/L (12-78); Phosphorus 1.7 mg/dL (2.5-4.9)
[2018-09-11 06:50] LABS: Alkaline Phosphatase 73 U/L (45-117); Total Protein 5.4 g/dL (6.4-8.2)
[2018-09-11] MEDS: Artificial Tears Opth Drops 15 ML Bottle EACH EYE SCH ×2 (07:59→15:48)
[2018-09-11] MEDS: Dextrose 5% in Water Inj 1,000 ML IV.CONT SCH (08:00)
[2018-09-11] MEDS: Chlorhexidine 0.12% Oral Kit 15 ML UDC OROPHARYNG SCH ×2 (08:00→20:18)
[2018-09-11] MEDS: Senna/Docusate Sodium 8.6/50 MG Tablet PO SCH ×2 (08:50→20:19)
[2018-09-11] MEDS: Lactobacillus Acidophilus/L. Spores Tablet PO SCH ×2 (08:50→20:18)
--- NOTE | 2018-09-11 09:59 | P.PNIM ---
Subjective Interval history: Patient is more alert today. He states he is feeling better. He was able to eat by himself. He is feeling a little stronger. Physical Exam Vital signs: Last Vital Signs Temp 97.7 F 09/11/18 08:00 Pulse 96 H 09/11/18 09:06 Resp 17 09/11/18 09:06 BP 136/80 09/11/18 09:00 Pulse Ox 95 09/11/18 09:00 Intake & Output 09/09/18 09/10/18 09/11/18 09/12/18 06:59 06:59 06:59 06:59 Intake Total 3465 / 3465 700 / 700 4954.5 / 4954.5 1517.5 / 1517.5 Output Total 3710 / 3710 1635 / 1635 1890 / 1890 Balance -245 / -245 -935 / -935 3064.5 / 3064.5 1517.5 / 1517.5 Weight 111.5 kg 111.7 kg 110 kg Narrative: GENERAL: Elderly obese male sitting up in bed. CARDIOVASCULAR: Regular rate and rhythm. RESPIRATORY: No accessory muscle use. air movement is fair. crackles at the bases bilaterally. GASTROINTESTINAL: Abdomen soft, nondistended. Shane dressing in place. tender around the surgical site. DAVID drain in place on the left. MUSCULOSKELETAL: Extremities without clubbing, cyanosis,but has 2 + edema. NEUROLOGICAL: Profound generalized weakness. Urinary Catheter Management Indwelling Temp Sensing Catheter: Cath placed during this visit: yes, but has since been removed by the nurse Insertion date: 08/25/18 Insertion time: 14:20 Removal date: 08/29/18 Removal time: 12:30 Indwelling Urethral Catheter: Cath placed during this visit: yes Urethral indwelling: No Insertion date: 09/06/18 Insertion time: 12:00 Results Labs CBC & Chem 7: 09/11/18 05:42 09/11/18 11:23 Imaging Imaging: Impressions Chest X-Ray 09/11/18 00:00 CONCLUSION: Slight improvement in the bilateral infiltrates. Assessment and Plan (1) COPD (chronic obstructive pulmonary disease): Code(s): J44.9 - Chronic obstructive pulmonary disease, unspecified Status: Acute (2) Severe sepsis: Code(s): A41.9 - Sepsis, unspecified organism; R65.20 - Severe sepsis without septic shock Status: Acute (3) Pneumonia: Code(s): J18.9 - Pneumonia, unspecified organism Status: Acute (4) Acute respiratory failure with hypoxia and hypercapnia: Code(s): J96.01 - Acute respiratory failure with hypoxia; J96.02 - Acute respiratory failure with hypercapnia Status: Acute (5) Lactic acidosis: Code(s): E87.2 - Acidosis Status: Acute (6) Atrial fibrillation with rapid ventricular response: Code(s): I48.91 - Unspecified atrial fibrillation Status: Acute (7) Acute kidney injury: Code(s): N17.9 - Acute kidney failure, unspecified Status: Acute (8) Chronic steroid use: Status: Chronic (9) Hypertension: Code(s): I10 - Essential (primary) hypertension Status: Chronic (10) Pulmonary cavitary lesion: Code(s): J98.4 - Other disorders of lung Status: Acute (11) Status post colectomy: Code(s): Z90.49 - Acquired absence of other specified parts of digestive tract Status: Acute (12) Atelectasis of both lungs: Code(s): J98.11 - Atelectasis Status: Acute Plan 83 Y/O male with acute respiratory failure secondary to pneumonia. His ICU course is somewhat prolonged. Has had issues with agitation at night and not wearing bipap. Pneumonia is persisting. His antibiotics were changed. He is showing some improvement. Pulmonology following. Continue to treat pneumonia per ID. He is very deconditioned and will likely need rehab. His 's goal [place]. Other active issues include hypernatremia and sundowning. 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 Continue rehabilitation efforts. Community acquired pneumonia Perforated viscus Blood cultures from 08/25 grew Haemophilus influenza sensitive to penicillins/ cephalosporins, s/p ceftriaxone Repeat blood cultures sent on 08/27 negative thus far Sputum and urine cultures no growth to date Flu and MRSA swabs negative Legionella and pneumococcus negative ID following for antibiotic management. 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 NG tube discontinued, diet advanced to liquid diet per general surgery. Pantoprazole for GI prophylaxis Docusate sodium/senna 1 tablet twice daily for bowel regimen General surgery following. Shane dressing and drain in place. WESLEY, resolved Hypernatremia BID lasix dosing, hold No urine eosinophils noted Renal ultrasound - bilateral renal cyst. Possible hemorrhagic left renal cyst Avoid nephrotoxic medication Monitor urine output Accurate I's and O's Nephrology following. Hypernatremia resolving. On D5W per nephrology. Follow-up BMP in a.m. Atrial fibrillation with rapid ventricular response currently rate controlled Elevated troponin History of essential hypertension Hyperlipidemia Lactic acidosis Trop 0.27 on admission, most recent 0.08, no longer trending Echo: EF 45%, RV enlargement/ dysfunction, PAP 38 mm Hg Continue beta-tristian Eliquis restarted. Hypokalemia -Replace per ICU protocol. Check mag Delirium: Likely related to medical conditions and ICU: Much improved. He is sleeping better and is more appropriate -Delirium precautions (lights on/ shades up during the day, limit nighttime disruptions, frequent reorientation, use hearing aids) Prophylaxis -GI -pantoprazole -DVT -SCD/apixaban Discharge Planning: Continue care in the ICU. Consider transfer to medical floor tomorrow if he remains stable. Progress Note: Quality VTE Deep Vein Thrombosis/Pulmonary Embolism Present on Admission: No _ (1) COPD (chronic obstructive pulmonary disease) Qualifiers: COPD type: Chronic bronchitis type: Emphysema type: (2) Hypertension Qualifiers: Hypertension type: essential hypertension Qualified Code(s): I10 - Essential (primary) hypertension (3) Pneumonia Qualifiers: Aspiration pneumonia type: Laterality: bilateral Lung location: unspecified part of lung Pneumonia type: due to unspecified organism Qualified Code(s): J18.9 - Pneumonia, unspecified organism
[2018-09-11] MEDS: Potassium Chlor 20 mEq Premix 20 MEQ/100 ML PIGGYBACK IV.SIG PRN (10:47)
--- NOTE | 2018-09-11 11:41 | P.PNID ---
Subjective Remarks: Patient is awake and alert. Says he feels okay. No complaints. Afebrile. Had 3 bowel movements. No diarrhea. On nasal cannula. Post right hemicolectomy for perforated viscus. Chest x-ray shows improvement in lung infiltrates. White blood cell count is improving. Mycoplasma IgG is positive. Mycoplasma IgM is negative. Chlamydia IgG positive. Legionella and strep antigen were negative. 83-year-old white male was admitted to the hospital on 08/25/2018. Patient presented with shortness of breath. Chest x-ray showed bilateral infiltrates and white blood cell count was elevated. 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 History of lithotripsy History of arthroplasty of the knee History of trigeminal neuralgia. Allergies/Adverse Reactions: Allergies amiodarone Allergy (Intermediate, Verified 11/15/17 10:35) BLACK LUNGS atorvastatin [From Lipitor] Adverse Reaction (Unknown, Verified 09/05/18 15:05) Joint Pain fluvastatin [From Lescol] Adverse Reaction (Unknown, Verified 09/05/18 15:05) UNKNOWN Sulfa (Sulfonamide Antibiotics) Adverse Reaction (Verified 09/05/18 15:05) Abdominal Pain Objective Vital Signs 09/10/18 12:00 09/10/18 13:00 09/10/18 14:00 Temperature 97.6 F Pulse Rate 92 H 101 H 98 H Respiratory Rate 20 21 27 H Blood Pressure 123/71 125/72 110/79 Pulse Oximetry 92 L 94 L 94 L 09/10/18 15:00 09/10/18 16:00 09/10/18 17:00 Temperature 97.6 F Pulse Rate 99 H 94 H 91 H Respiratory Rate 24 20 22 Blood Pressure 128/79 130/71 140/85 Pulse Oximetry 95 94 L 94 L 09/10/18 18:00 09/10/18 19:00 09/10/18 20:00 Temperature 98.1 F Pulse Rate 91 H 95 H 90 Respiratory Rate 23 24 22 Blood Pressure 148/78 H 148/77 H 130/78 Pulse Oximetry 94 L 95 95 09/10/18 20:44 09/10/18 21:00 09/10/18 22:00 Temperature Pulse Rate 91 H 101 H 94 H Respiratory Rate 18 26 H 19 Blood Pressure 146/67 H 107/65 Pulse Oximetry 96 95 91 L 09/10/18 23:00 09/11/18 00:00 09/11/18 01:00 Temperature 97.9 F Pulse Rate 94 H 93 H 92 H Respiratory Rate 20 22 19 Blood Pressure 132/71 122/74 136/70 Pulse Oximetry 92 L 93 L 93 L 09/11/18 02:00 09/11/18 03:00 09/11/18 03:01 Temperature Pulse Rate 99 H 96 H 96 H Respiratory Rate 21 25 H 28 H Blood Pressure 138/72 160/103 H 133/63 Pulse Oximetry 92 L 89 L 90 L 09/11/18 04:00 09/11/18 04:03 09/11/18 05:00 Temperature Pulse Rate 95 H 91 H 95 H Respiratory Rate 25 H 16 16 Blood Pressure 135/69 Pulse Oximetry 93 L 96 09/11/18 05:11 09/11/18 06:00 09/11/18 06:03 Temperature 98.0 F Pulse Rate 93 H 88 91 H Respiratory Rate 22 17 17 Blood Pressure 142/67 H 149/77 H Pulse Oximetry 96 94 L 94 L 09/11/18 07:00 09/11/18 07:57 09/11/18 08:00 Temperature 97.7 F 97.7 F Pulse Rate 93 H 96 H 95 H Respiratory Rate 22 19 19 Blood Pressure 130/81 142/87 H Pulse Oximetry 95 96 95 09/11/18 09:00 09/11/18 09:06 09/11/18 10:00 Temperature Pulse Rate 93 H 96 H 98 H Respiratory Rate 23 17 21 Blood Pressure 136/80 127/78 Pulse Oximetry 95 98 Intake & Output 09/10/18 09/11/18 09/11/18 18:59 06:59 18:59 Intake Total 4454.5 / 4454.5 500 / 500 1617.5 / 1617.5 Output Total 790 / 790 1100 / 1100 Balance 3664.5 / 3664.5 -600 / -600 1617.5 / 1617.5 Weight 110 kg Intake: IV 4454.5 / 4454.5 400 / 400 1617.5 / 1617.5 D5W Inj 1,000 ML @ 84 mls/hr IV 1000 / 1000 1000 / 1000 .CONT .[id number] [facility] Rx#:[id number] Zosyn 4.5 GM Premix 4.5 gm In 300 / 300 200 / 200 100 / 100 100 ml @ 200 mls/hr IV.SIG Q6H [facility] Rx#:[id number] KCl 20 mEq Premix Inj 20 meq In 400 / 400 100 ml @ 50 mls/hr IV.SIG Q2H PRN Rx#:[id number] Vancomycin Inj 1,750 MG In NS 517.5 / 517.5 517.5 / 517.5 Inj 500 ML @ 250 mls/hr IV.SIG Q24H [facility] Rx#:[id number] Flagyl 500 MG Inj 100 ML @ 100 200 / 200 200 / 200 mls/hr IV.SIG Q6H [facility] Rx#: [id number] Cardene 20 mg/NS 200 ml Premix 172 / 172 20 mg In 200 ml @ 5 MG/HR 50 mls/hr IV.SIG TITRATE PRN Rx#: [id number] Oral 100 / 100 Output: Urine Amount (Catheter) 750 / 750 1000 / 1000 Indwelling Urethral Catheter 750 / 750 1000 / 1000 Wound Drainage 40 / 40 100 / 100 # 1 Left Lower Abdomen 40 / 40 100 / 100 Other: Date of Last Bowel Movement 09/10/18 09/10/18 09/10/18 # Bowel Movements 2 Lab - Hematology Results 09/11/18 05:42 WBC 14.3 H RBC 3.20 L Hgb 10.1 L Hct 30.6 L MCV 95.8 MCH 31.7 MCHC 33.1 RDW 15.3 Plt Count 213 MPV 9.3 Lab - Chemistry Results 09/09/18 09/09/18 09/09/18 12:29 18:46 23:38 Sodium Potassium Chloride Carbon Dioxide Anion Gap BUN Creatinine Estimated GFR POC Glucose 127 H 136 H 126 H Random Glucose Calcium Phosphorus Magnesium Total Bilirubin AST ALT Alkaline Phosphatase Total Protein Albumin 09/10/18 09/10/18 09/10/18 05:10 06:28 12:30 Sodium 149 H Potassium 2.7 L* D 3.3 L Chloride 112 H Carbon Dioxide 30.4 Anion Gap 7 BUN 23 H Creatinine 0.97 Estimated GFR 74 L POC Glucose 125 H Random Glucose 114 H Calcium 8.4 L Phosphorus Magnesium 2.1 Total Bilirubin 0.6 AST 28 ALT 26 Alkaline Phosphatase 66 Total Protein 4.9 L Albumin 1.5 L 09/10/18 09/11/18 23:47 05:42 Sodium 146 H 146 H Potassium 3.1 L 3.0 L Chloride 110 H 109 H Carbon Dioxide 30.5 30.4 Anion Gap 6 7 BUN 24 H 24 H Creatinine 0.97 1.03 Estimated GFR 74 L 69 L POC Glucose Random Glucose 147 H 142 H Calcium 8.3 L 8.9 Phosphorus 1.6 L D 1.7 L Magnesium Total Bilirubin 0.6 AST 35 ALT 35 Alkaline Phosphatase 73 Total Protein 5.4 L Albumin 1.6 L 1.7 L Imaging: ITS Impressions Abdomen/Bladder Ultrasound 08/25/18 00:00 CONCLUSION: 1. No evidence of hydronephrosis. 2. Bilateral renal cysts, mostly simple, with one cyst demonstrating homogeneous low level echoes, located in the midpole the left kidney and measuring 4 cm. Venous Doppler Study 08/25/18 00:00 CONCLUSION: 1. The study is negative for bilateral lower extremity deep venous thrombosis. Chest CT 09/05/18 00:00 CONCLUSION: 1. 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 2. Right lower lobe cavitary mass. 3. Probably benign left adrenal lesion Head CT 09/05/18 00:00 CONCLUSION: 1. No acute intracranial abnormalities. . Abdomen/Pelvis CT 09/07/18 00:00 CONCLUSION: 1. Status post recent abdominal surgery with free air throughout the abdomen. 2. Mild air-filled loops of small bowel suggestive of a postoperative ileus. 3. Otherwise no other significant changes are seen compared to the prior exam. Chest X-Ray 09/11/18 00:00 CONCLUSION: Slight improvement in the bilateral infiltrates. Physical Exam: PHYSICAL EXAMINATION: GENERAL: Patient is awake and alert. HEENT: Head is atraumatic. No icterus. Oropharynx intubated. Dry crusted lesions at the upper and lower lip. NECK: Supple without adenopathy. LUNGS: Bibasilar rhonchi. HEART: Irregular S1, S2. No murmur audible. ABDOMEN: Obese, soft. Decreased bowel sounds. DAVID drain has clear serous drainage. EXTREMITIES: No clubbing, cyanosis, 1+ nonpitting edema at the feet. SKIN: No rash. ecchymoses at hands and legs. NEUROLOGIC: No gross focal finding. PSYCHIATRIC: Calm and cooperative. Assessment and Plan - Plan IMPRESSION: Perforated viscus. Status post right hemicolectomy. Pneumonia. Probable community-acquired. Possible cause of blood culture positive with Haemophilus. Cavitary nodule noted in the right lower lung. ? Etiology. 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 Chest x-ray has diffuse bilateral infiltrates. Altered mental status. Improved. Leukocytosis. Improving. Herpetic lip ulcerations dried and crusted. Clinically looks stable. RECOMMENDATIONS: Continue Zosyn for pneumonia. Continue vancomycin. Continue Flagyl. Continue fluconazole Continue topical acyclovir. Monitor white blood cell count. Monitor clinical status. Monitor temperature. Consider tapering of antibiotics when white blood cell count normalizes. Discussed with at bedside. I will be off 09/12/18 - 09/16/18. Other ID MD covering in my absence.
[2018-09-11 12:03] LABS: Alanine Aminotransferase 33 U/L (12-78); Albumin 1.6 g/dL (3.4-5.0); Anion Gap 7 meq/L (5-15); Aspartate Aminotransferase 34 U/L (15-37); Blood Urea Nitrogen 23 mg/dL (7-18); Calcium 8.6 mg/dL (8.5-10.1); Carbon Dioxide 27.7 meq/L (21.0-32.0); Chloride 109 meq/L (98-107); Glomerular Filtration Rate 67 mL/min (>89); Glucose,Random 174 mg/dL (74-106); Potassium 3.1 meq/L (3.5-5.1); Sodium 144 meq/L (136-145)
[2018-09-11 12:06] LABS: Alkaline Phosphatase 70 U/L (45-117); Total Protein 5.2 g/dL (6.4-8.2)
--- NOTE | 2018-09-11 13:07 | P.PNNP ---
Subjective Interval history: Patient is sitting on a chair. Hypernatremia has improved. Hypokalemia is noted. Physical Exam Vital signs: Vital Signs 09/10/18 14:00 09/10/18 15:00 09/10/18 16:00 Temperature 97.6 F Pulse Rate 98 H 99 H 94 H Respiratory Rate 27 H 24 20 Blood Pressure 110/79 128/79 130/71 Pulse Oximetry 94 L 95 94 L 09/10/18 17:00 09/10/18 18:00 09/10/18 19:00 Temperature Pulse Rate 91 H 91 H 95 H Respiratory Rate 22 23 24 Blood Pressure 140/85 148/78 H 148/77 H Pulse Oximetry 94 L 94 L 95 09/10/18 20:00 09/10/18 20:44 09/10/18 21:00 Temperature 98.1 F Pulse Rate 90 91 H 101 H Respiratory Rate 22 18 26 H Blood Pressure 130/78 146/67 H Pulse Oximetry 95 96 95 09/10/18 22:00 09/10/18 23:00 09/11/18 00:00 Temperature 97.9 F Pulse Rate 94 H 94 H 93 H Respiratory Rate 19 20 22 Blood Pressure 107/65 132/71 122/74 Pulse Oximetry 91 L 92 L 93 L 09/11/18 01:00 09/11/18 02:00 09/11/18 03:00 Temperature Pulse Rate 92 H 99 H 96 H Respiratory Rate 19 21 25 H Blood Pressure 136/70 138/72 160/103 H Pulse Oximetry 93 L 92 L 89 L 09/11/18 03:01 09/11/18 04:00 09/11/18 04:03 Temperature Pulse Rate 96 H 95 H 91 H Respiratory Rate 28 H 25 H 16 Blood Pressure 133/63 135/69 Pulse Oximetry 90 L 93 L 09/11/18 05:00 09/11/18 05:11 09/11/18 06:00 Temperature 98.0 F Pulse Rate 95 H 93 H 88 Respiratory Rate 16 22 17 Blood Pressure 142/67 H Pulse Oximetry 96 96 94 L 09/11/18 06:03 09/11/18 07:00 09/11/18 07:57 Temperature 97.7 F Pulse Rate 91 H 93 H 96 H Respiratory Rate 17 22 19 Blood Pressure 149/77 H 130/81 Pulse Oximetry 94 L 95 96 09/11/18 08:00 09/11/18 09:00 09/11/18 09:06 Temperature 97.7 F Pulse Rate 95 H 93 H 96 H Respiratory Rate 19 23 17 Blood Pressure 142/87 H 136/80 Pulse Oximetry 95 95 09/11/18 10:00 Temperature Pulse Rate 98 H Respiratory Rate 21 Blood Pressure 127/78 Pulse Oximetry 98 Intake & Output 09/10/18 09/11/18 09/11/18 18:59 06:59 18:59 Intake Total 4454.5 / 4454.5 500 / 500 1617.5 / 1617.5 Output Total 790 / 790 1100 / 1100 Balance 3664.5 / 3664.5 -600 / -600 1617.5 / 1617.5 Weight 110 kg Intake: IV 4454.5 / 4454.5 400 / 400 1617.5 / 1617.5 D5W Inj 1,000 ML @ 84 mls/hr IV 1000 / 1000 1000 / 1000 .CONT .[id number] [facility] Rx#:[id number] Zosyn 4.5 GM Premix 4.5 gm In 300 / 300 200 / 200 100 / 100 100 ml @ 200 mls/hr IV.SIG Q6H [facility] Rx#:[id number] KCl 20 mEq Premix Inj 20 meq In 400 / 400 100 ml @ 50 mls/hr IV.SIG Q2H PRN Rx#:[id number] Vancomycin Inj 1,750 MG In NS 517.5 / 517.5 517.5 / 517.5 Inj 500 ML @ 250 mls/hr IV.SIG Q24H [facility] Rx#:[id number] Flagyl 500 MG Inj 100 ML @ 100 200 / 200 200 / 200 mls/hr IV.SIG Q6H [facility] Rx#: [id number] Cardene 20 mg/NS 200 ml Premix 172 / 172 20 mg In 200 ml @ 5 MG/HR 50 mls/hr IV.SIG TITRATE PRN Rx#: [id number] Oral 100 / 100 Output: Urine Amount (Catheter) 750 / 750 1000 / 1000 Indwelling Urethral Catheter 750 / 750 1000 / 1000 Wound Drainage 40 / 40 100 / 100 # 1 Left Lower Abdomen 40 / 40 100 / 100 Other: Date of Last Bowel Movement 09/10/18 09/10/18 09/11/18 # Bowel Movements 2 - Constitutional no acute distress - Routine HEENT Exam Head: Present: normocephalic Eye: Present: EOMI, PERRL ENT: Present: mucous membranes moist - Routine Neck Exam Present: trachea midline - Routine Respiratory Exam Absent: accessory muscle use, respiratory distress - Routine Cardiovascular Exam Present: RRR - Routine Extremities Exam Present: edema - Routine Neurological Exam Present: alert - Routine Psychiatric Exam Present: normal affect - Urinary Catheter Management Indwelling Temp Sensing Catheter Cath placed during this visit: yes, but has since been removed by the nurse Reason for continuing: Decision to DC catheter Insertion date: 08/25/18 Insertion time: 14:20 Removal date: 08/29/18 Removal time: 12:30 Indwelling Urethral Catheter Cath placed during this visit: yes Reason for continuing: Hourly intake/output Insertion date: 09/06/18 Insertion time: 12:00 Assessment and Plan - Assessment (1) Hypernatremia Code(s): E87.0 - Hyperosmolality and hypernatremia Status: Acute Plan: Has improved. Patient on Diuril. (2) Leukocytosis Code(s): D72.829 - Elevated white blood cell count, unspecified Status: Acute Qualifiers: Leukocytosis type: unspecified Qualified Code(s): D72.829 - Elevated white blood cell count, unspecified Plan: Has been diagnosed with pneumonia. Also is on steroids. (3) Pneumonia Code(s): J18.9 - Pneumonia, unspecified organism Status: Acute Qualifiers: Pneumonia type: due to unspecified organism Laterality: bilateral Lung location: unspecified part of lung Qualified Code(s): J18.9 - Pneumonia, unspecified organism Plan: Continue antibiotics, ID following. (4) Hypokalemia Code(s): E87.6 - Hypokalemia Status: Acute Plan: Replace per protocol. Patient was given IV K and K-Phos today. (5) Volvulus Code(s): K56.2 - Volvulus Status: Acute Plan: Volvulus with cecal perforation. s/p surgery.
[2018-09-11] MEDS: Pantoprazole Inj 40 MG Vial IV.PUSH SCH (13:15)
--- NOTE | 2018-09-11 18:03 | P.PN ---
Subjective Interval history: He is better today. On O2 2 L. No SOB at rest. Cannot move legs well. Chest Xray improving. Physical Exam Vital signs: Vital Signs 09/10/18 19:00 09/10/18 20:00 09/10/18 20:44 Temperature 98.1 F Pulse Rate 95 H 90 91 H Respiratory Rate 24 22 18 Blood Pressure 148/77 H 130/78 Pulse Oximetry 95 95 96 09/10/18 21:00 09/10/18 22:00 09/10/18 23:00 Temperature Pulse Rate 101 H 94 H 94 H Respiratory Rate 26 H 19 20 Blood Pressure 146/67 H 107/65 132/71 Pulse Oximetry 95 91 L 92 L 09/11/18 00:00 09/11/18 01:00 09/11/18 02:00 Temperature 97.9 F Pulse Rate 93 H 92 H 99 H Respiratory Rate 22 19 21 Blood Pressure 122/74 136/70 138/72 Pulse Oximetry 93 L 93 L 92 L 09/11/18 03:00 09/11/18 03:01 09/11/18 04:00 Temperature Pulse Rate 96 H 96 H 95 H Respiratory Rate 25 H 28 H 25 H Blood Pressure 160/103 H 133/63 135/69 Pulse Oximetry 89 L 90 L 93 L 09/11/18 04:03 09/11/18 05:00 09/11/18 05:11 Temperature Pulse Rate 91 H 95 H 93 H Respiratory Rate 16 16 22 Blood Pressure 142/67 H Pulse Oximetry 96 96 09/11/18 06:00 09/11/18 06:03 09/11/18 07:00 Temperature 98.0 F 97.7 F Pulse Rate 88 91 H 93 H Respiratory Rate 17 17 22 Blood Pressure 149/77 H Pulse Oximetry 94 L 94 L 95 09/11/18 07:57 09/11/18 08:00 09/11/18 09:00 Temperature 97.7 F Pulse Rate 96 H 95 H 93 H Respiratory Rate 19 19 23 Blood Pressure 130/81 142/87 H 136/80 Pulse Oximetry 96 95 95 09/11/18 09:06 09/11/18 10:00 09/11/18 11:00 Temperature Pulse Rate 96 H 98 H 99 H Respiratory Rate 17 21 28 H Blood Pressure 127/78 127/83 Pulse Oximetry 98 09/11/18 12:00 09/11/18 13:00 09/11/18 14:00 Temperature 99.2 F Pulse Rate 94 H 94 H 104 H Respiratory Rate 20 19 32 H Blood Pressure 140/81 138/75 115/86 Pulse Oximetry 93 L 93 L 96 09/11/18 15:00 09/11/18 16:00 09/11/18 17:14 Temperature 98.5 F Pulse Rate 95 H 98 H 92 H Respiratory Rate 20 20 17 Blood Pressure 127/80 147/78 H Pulse Oximetry 98 96 Intake & Output 09/10/18 09/11/18 09/11/18 18:59 06:59 18:59 Intake Total 4454.5 / 4454.5 500 / 500 1917.5 / 1917.5 Output Total 790 / 790 1100 / 1100 Balance 3664.5 / 3664.5 -600 / -600 7.5 / 1916.5 Weight 110 kg Intake: IV 4454.5 / 4454.5 400 / 400 1917.5 / 1917.5 D5W Inj 1,000 ML @ 84 mls/hr IV 1000 / 1000 1000 / 1000 .CONT .[id number] [facility] Rx#:[id number] Zosyn 4.5 GM Premix 4.5 gm In 300 / 300 200 / 200 100 / 100 100 ml @ 200 mls/hr IV.SIG Q6H [facility] Rx#:[id number] KCl 20 mEq Premix Inj 20 meq In 400 / 400 100 / 100 100 ml @ 50 mls/hr IV.SIG Q2H PRN Rx#:[id number] Vancomycin Inj 1,750 MG In NS 517.5 / 517.5 517.5 / 517.5 Inj 500 ML @ 250 mls/hr IV.SIG Q24H [facility] Rx#:[id number] Flagyl 500 MG Inj 100 ML @ 100 200 / 200 200 / 200 200 / 200 mls/hr IV.SIG Q6H [facility] Rx#: [id number] Cardene 20 mg/NS 200 ml Premix 172 / 172 20 mg In 200 ml @ 5 MG/HR 50 mls/hr IV.SIG TITRATE PRN Rx#: [id number] Oral 100 / 100 Output: Urine Amount (Catheter) 750 / 750 1000 / 1000 Indwelling Urethral Catheter 750 / 750 1000 / 1000 Wound Drainage 40 / 40 100 / 100 # 1 Left Lower Abdomen 40 / 40 100 / 100 Other: Date of Last Bowel Movement 09/10/18 09/10/18 09/11/18 # Bowel Movements 2 Narrative: GENERAL: Elderly obese male sitting up in bed. CARDIOVASCULAR: Irregular rate and rhythm. RESPIRATORY: No accessory muscle use. air movement is poor . crackles at the bases bilaterally. GASTROINTESTINAL: Abdomen soft, nondistended. Shane dressing in place. tender around the surgical site. DAVID drain in place on the left. MUSCULOSKELETAL: Extremities without clubbing, cyanosis,but has 2 + edema. NEUROLOGICAL: Profound generalized weakness. - Urinary Catheter Management Indwelling Temp Sensing Catheter Cath placed during this visit: yes, but has since been removed by the nurse Reason for continuing: Decision to DC catheter Insertion date: 08/25/18 Insertion time: 14:20 Removal date: 08/29/18 Removal time: 12:30 Indwelling Urethral Catheter Cath placed during this visit: yes Urethral indwelling: No Reason for continuing: Hourly intake/output Insertion date: 09/06/18 Insertion time: 12:00 Results - Labs CBC & Chem 7: 09/11/18 05:42 09/11/18 11:23 Laboratory Results - last 24 hr 09/10/18 09/11/18 09/11/18 23:47 05:42 05:42 WBC 14.3 H RBC 3.20 L Hgb 10.1 L Hct 30.6 L MCV 95.8 MCH 31.7 MCHC 33.1 RDW 15.3 Plt Count 213 MPV 9.3 Sodium 146 H 146 H Potassium 3.1 L 3.0 L Chloride 110 H 109 H Carbon Dioxide 30.5 30.4 Anion Gap 6 7 BUN 24 H 24 H Creatinine 0.97 1.03 Estimated GFR 74 L 69 L Random Glucose 147 H 142 H Calcium 8.3 L 8.9 Phosphorus 1.6 L D 1.7 L Total Bilirubin 0.6 AST 35 ALT 35 Alkaline Phosphatase 73 Total Protein 5.4 L Albumin 1.6 L 1.7 L 09/11/18 09/11/18 11:23 17:19 WBC RBC Hgb Hct MCV MCH MCHC RDW Plt Count MPV Sodium 144 Potassium 3.1 L Chloride 109 H Carbon Dioxide 27.7 Anion Gap 7 BUN 23 H Creatinine 1.06 Estimated GFR 67 L Random Glucose 174 H Calcium 8.6 Phosphorus 1.7 L Total Bilirubin 0.7 AST 34 ALT 33 Alkaline Phosphatase 70 Total Protein 5.2 L Albumin 1.6 L - Imaging Impressions Chest X-Ray 09/11/18 00:00 CONCLUSION: Slight improvement in the bilateral infiltrates. Assessment and Plan - Assessment (1) COPD (chronic obstructive pulmonary disease) Code(s): J44.9 - Chronic obstructive pulmonary disease, unspecified Status: Acute (2) Severe sepsis Code(s): A41.9 - Sepsis, unspecified organism; R65.20 - Severe sepsis without septic shock Status: Acute (3) Pneumonia Code(s): J18.9 - Pneumonia, unspecified organism Status: Acute (4) Acute respiratory failure with hypoxia and hypercapnia Code(s): J96.01 - Acute respiratory failure with hypoxia; J96.02 - Acute respiratory failure with hypercapnia Status: Acute (5) Lactic acidosis Code(s): E87.2 - Acidosis Status: Acute (6) Atrial fibrillation with rapid ventricular response Code(s): I48.91 - Unspecified atrial fibrillation Status: Acute (7) Acute kidney injury Code(s): N17.9 - Acute kidney failure, unspecified Status: Acute (8) Chronic steroid use Status: Chronic (9) Hypertension Code(s): I10 - Essential (primary) hypertension Status: Chronic (10) Pulmonary cavitary lesion Code(s): J98.4 - Other disorders of lung Status: Acute (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 Cont on Home CPAP ,FIO2 28 % at HS 2. O2 N/C 3 L daytime 3. Duoneb nebs q6h 4. CBC,BMP in am 5. Continue antibiotics per ID . 6. IV Hydration per Renal. 7. Continue Eliquis 5 mg BID. 8. Cont Breo 200/25 Mcg, 1 puff daily 9. EzPAP with Nebs qid. 10. PT evaluation for activity (3) Pneumonia Qualifiers: Pneumonia type: due to unspecified organism Laterality: bilateral Lung location: unspecified part of lung Qualified Code(s): J18.9 - Pneumonia, unspecified organism (9) Hypertension Qualifiers: Hypertension type: essential hypertension Qualified Code(s): I10 - Essential (primary) hypertension
--- NOTE | 2018-09-11 18:38 | P.PNGS ---
Subjective Interval history: Seen about 0730 Resting in bed No events overnight Physical Exam Vital signs: Vital Signs 09/10/18 19:00 09/10/18 20:00 09/10/18 20:44 Temperature 98.1 F Pulse Rate 95 H 90 91 H Respiratory Rate 24 22 18 Blood Pressure 148/77 H 130/78 Pulse Oximetry 95 95 96 09/10/18 21:00 09/10/18 22:00 09/10/18 23:00 Temperature Pulse Rate 101 H 94 H 94 H Respiratory Rate 26 H 19 20 Blood Pressure 146/67 H 107/65 132/71 Pulse Oximetry 95 91 L 92 L 09/11/18 00:00 09/11/18 01:00 09/11/18 02:00 Temperature 97.9 F Pulse Rate 93 H 92 H 99 H Respiratory Rate 22 19 21 Blood Pressure 122/74 136/70 138/72 Pulse Oximetry 93 L 93 L 92 L 09/11/18 03:00 09/11/18 03:01 09/11/18 04:00 Temperature Pulse Rate 96 H 96 H 95 H Respiratory Rate 25 H 28 H 25 H Blood Pressure 160/103 H 133/63 135/69 Pulse Oximetry 89 L 90 L 93 L 09/11/18 04:03 09/11/18 05:00 09/11/18 05:11 Temperature Pulse Rate 91 H 95 H 93 H Respiratory Rate 16 16 22 Blood Pressure 142/67 H Pulse Oximetry 96 96 09/11/18 06:00 09/11/18 06:03 09/11/18 07:00 Temperature 98.0 F 97.7 F Pulse Rate 88 91 H 93 H Respiratory Rate 17 17 22 Blood Pressure 149/77 H Pulse Oximetry 94 L 94 L 95 09/11/18 07:57 09/11/18 08:00 09/11/18 09:00 Temperature 97.7 F Pulse Rate 96 H 95 H 93 H Respiratory Rate 19 19 23 Blood Pressure 130/81 142/87 H 136/80 Pulse Oximetry 96 95 95 09/11/18 09:06 09/11/18 10:00 09/11/18 11:00 Temperature Pulse Rate 96 H 98 H 99 H Respiratory Rate 17 21 28 H Blood Pressure 127/78 127/83 Pulse Oximetry 98 09/11/18 12:00 09/11/18 13:00 09/11/18 14:00 Temperature 99.2 F Pulse Rate 94 H 94 H 104 H Respiratory Rate 20 19 32 H Blood Pressure 140/81 138/75 115/86 Pulse Oximetry 93 L 93 L 96 09/11/18 15:00 09/11/18 16:00 09/11/18 17:00 Temperature 98.5 F Pulse Rate 95 H 98 H 99 H Respiratory Rate 20 20 23 Blood Pressure 127/80 147/78 H 131/71 Pulse Oximetry 98 96 96 09/11/18 17:14 09/11/18 18:00 09/11/18 18:17 Temperature Pulse Rate 92 H 95 H 96 H Respiratory Rate 17 18 20 Blood Pressure 128/67 Pulse Oximetry 92 L 97 Intake & Output 09/10/18 09/11/18 09/11/18 18:59 06:59 18:59 Intake Total 4454.5 / 4454.5 500 / 500 4817.5 / 4817.5 Output Total 790 / 790 1100 / 1100 1700 / 1700 Balance 3664.5 / 3664.5 -600 / -600 3117.5 / 3117.5 Weight 110 kg Intake: IV 4454.5 / 4454.5 400 / 400 2917.5 / 2917.5 D5W Inj 1,000 ML @ 84 mls/hr IV 1000 / 1000 2000 / 1999 .CONT .[id number] [facility] Rx#:[id number] Zosyn 4.5 GM Premix 4.5 gm In 300 / 300 200 / 200 100 / 100 100 ml @ 200 mls/hr IV.SIG Q6H [facility] Rx#:[id number] KCl 20 mEq Premix Inj 20 meq In 400 / 400 100 / 100 100 ml @ 50 mls/hr IV.SIG Q2H PRN Rx#:[id number] Vancomycin Inj 1,750 MG In NS 517.5 / 517.5 517.5 / 517.5 Inj 500 ML @ 250 mls/hr IV.SIG Q24H [facility] Rx#:[id number] Flagyl 500 MG Inj 100 ML @ 100 200 / 200 200 / 200 200 / 200 mls/hr IV.SIG Q6H [facility] Rx#: [id number] Cardene 20 mg/NS 200 ml Premix 172 / 172 20 mg In 200 ml @ 5 MG/HR 50 mls/hr IV.SIG TITRATE PRN Rx#: [id number] Oral 100 / 100 400 / 400 Anesthesia Amount 1500 / 1500 Output: Urine 740 / 740 Urine Amount (Catheter) 750 / 750 1000 / 1000 740 / 740 Indwelling Urethral Catheter 750 / 750 1000 / 1000 740 / 740 Wound Drainage 40 / 40 100 / 100 220 / 220 # 1 Left Lower Abdomen 40 / 40 100 / 100 220 / 220 Other: Date of Last Bowel Movement 09/10/18 09/10/18 09/11/18 # Bowel Movements 2 2 Narrative: Alert and awake Abd: soft; TANG in place with dry bloody drainage; DAVID with serous drainage--- leaking at site - Urinary Catheter Management Indwelling Temp Sensing Catheter Cath placed during this visit: yes, but has since been removed by the nurse Reason for continuing: Decision to DC catheter Insertion date: 08/25/18 Insertion time: 14:20 Removal date: 08/29/18 Removal time: 12:30 Indwelling Urethral Catheter Cath placed during this visit: yes Urethral indwelling: No Reason for continuing: Hourly intake/output Insertion date: 09/06/18 Insertion time: 12:00 Results - Labs 09/11/18 05:42 09/11/18 11:23 Laboratory Results - last 24 hr 09/10/18 09/11/18 09/11/18 23:47 05:42 05:42 WBC 14.3 H RBC 3.20 L Hgb 10.1 L Hct 30.6 L MCV 95.8 MCH 31.7 MCHC 33.1 RDW 15.3 Plt Count 213 MPV 9.3 Sodium 146 H 146 H Potassium 3.1 L 3.0 L Chloride 110 H 109 H Carbon Dioxide 30.5 30.4 Anion Gap 6 7 BUN 24 H 24 H Creatinine 0.97 1.03 Estimated GFR 74 L 69 L Random Glucose 147 H 142 H Calcium 8.3 L 8.9 Phosphorus 1.6 L D 1.7 L Total Bilirubin 0.6 AST 35 ALT 35 Alkaline Phosphatase 73 Total Protein 5.4 L Albumin 1.6 L 1.7 L 09/11/18 09/11/18 11:23 17:19 WBC RBC Hgb Hct MCV MCH MCHC RDW Plt Count MPV Sodium 144 Potassium 3.1 L Chloride 109 H Carbon Dioxide 27.7 Anion Gap 7 BUN 23 H Creatinine 1.06 Estimated GFR 67 L Random Glucose 174 H Calcium 8.6 Phosphorus 1.7 L Total Bilirubin 0.7 AST 34 ALT 33 Alkaline Phosphatase 70 Total Protein 5.2 L Albumin 1.6 L - Imaging Imaging: ITS Impressions Abdomen/Bladder Ultrasound 08/25/18 00:00 CONCLUSION: 1. No evidence of hydronephrosis. 2. Bilateral renal cysts, mostly simple, with one cyst demonstrating homogeneous low level echoes, located in the midpole the left kidney and measuring 4 cm. Venous Doppler Study 08/25/18 00:00 CONCLUSION: 1. The study is negative for bilateral lower extremity deep venous thrombosis. Chest CT 09/05/18 00:00 CONCLUSION: 1. 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 2. Right lower lobe cavitary mass. 3. Probably benign left adrenal lesion Head CT 09/05/18 00:00 CONCLUSION: 1. No acute intracranial abnormalities. . Abdomen/Pelvis CT 09/07/18 00:00 CONCLUSION: 1. Status post recent abdominal surgery with free air throughout the abdomen. 2. Mild air-filled loops of small bowel suggestive of a postoperative ileus. 3. Otherwise no other significant changes are seen compared to the prior exam. Chest X-Ray 09/11/18 00:00 CONCLUSION: Slight improvement in the bilateral infiltrates. 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
[2018-09-12] MEDS: Vancomycin Inj 1,750 MG in Sodium Chlor 0.9% Inj 500 ML IV.SIG SCH (00:07)
[2018-09-12] MEDS: Piperacil/Tazo 4.5 GM Premix 4.5 GM/100 ML BAG IV.SIG SCH ×5 (00:07→23:44)
[2018-09-12] MEDS: Artificial Tears Opth Drops 15 ML Bottle EACH EYE SCH ×4 (00:08→22:19)
[2018-09-12] MEDS: Dextrose 5% in Water Inj 1,000 ML IV.CONT SCH ×3 (05:15→22:17)
[2018-09-12] MEDS: Oral Hygiene Kit OROPHARYNG SCH ×4 (05:15→16:44)
[2018-09-12 05:37] LABS: Hematocrit 31.7 % (39.0-51.0); Hemoglobin 10.5 gm/dL (13.0-17.0); Mean Corpuscular HGB Conc 33.1 % (32.0-36.0); Mean Corpuscular Hemoglobin 31.5 pg (27.0-34.0); Mean Corpuscular Volume 95.2 fL (80.0-100.0); Mean Platelet Volume 9.5 fL (7.0-11.0); Platelet Count 203 th/mm3 (150-450); Red Blood Count 3.33 mil/mm3 (4.50-5.90); Red Cell Distribution Width 15.8 % (11.6-17.2)
[2018-09-12 05:47] LABS: Alanine Aminotransferase 31 U/L (12-78); Albumin 1.5 g/dL (3.4-5.0); Anion Gap 9 meq/L (5-15); Aspartate Aminotransferase 30 U/L (15-37); Blood Urea Nitrogen 20 mg/dL (7-18); Calcium 8.4 mg/dL (8.5-10.1); Carbon Dioxide 26.3 meq/L (21.0-32.0); Chloride 109 meq/L (98-107); Glomerular Filtration Rate 73 mL/min (>89); Glucose,Random 136 mg/dL (74-106)
[2018-09-12 05:49] LABS: Alkaline Phosphatase 66 U/L (45-117); Total Protein 5.1 g/dL (6.4-8.2)
[2018-09-12 05:51] LABS: Sodium 144 meq/L (136-145)
[2018-09-12] MEDS ORDERED: Potassium Phosphate Inj 30 MMOL in Sodium Chlor 0.9% Inj 250 ML IV.SIG ONE (09:00)
[2018-09-12] MEDS: Chlorhexidine 0.12% Oral Kit 15 ML UDC OROPHARYNG SCH ×2 (09:02→20:42)
[2018-09-12] MEDS: Lactobacillus Acidophilus/L. Spores Tablet PO SCH ×2 (09:02→20:41)
[2018-09-12] MEDS: Senna/Docusate Sodium 8.6/50 MG Tablet PO SCH ×2 (09:02→20:43)
--- NOTE | 2018-09-12 09:26 | P.PNNP ---
Subjective Interval history: patient was seen and examined. More alert today. Hypernatremia has improved. Hypokalemia and hypophosphatemia persist. Physical Exam Vital signs: Vital Signs 09/11/18 10:00 09/11/18 11:00 09/11/18 12:00 Temperature 99.2 F Pulse Rate 98 H 99 H 94 H Respiratory Rate 21 28 H 20 Blood Pressure 127/78 127/83 140/81 Pulse Oximetry 98 93 L 09/11/18 13:00 09/11/18 14:00 09/11/18 15:00 Temperature Pulse Rate 94 H 104 H 95 H Respiratory Rate 19 32 H 20 Blood Pressure 138/75 115/86 127/80 Pulse Oximetry 93 L 96 98 09/11/18 16:00 09/11/18 17:00 09/11/18 17:14 Temperature 98.5 F Pulse Rate 98 H 99 H 92 H Respiratory Rate 20 23 17 Blood Pressure 147/78 H 131/71 Pulse Oximetry 96 96 09/11/18 18:00 09/11/18 18:17 09/11/18 19:00 Temperature Pulse Rate 95 H 96 H 99 H Respiratory Rate 18 20 22 Blood Pressure 128/67 Pulse Oximetry 92 L 97 94 L 09/11/18 20:00 09/11/18 20:17 09/11/18 20:26 Temperature 98.7 F Pulse Rate 96 H 96 H 91 H Respiratory Rate 21 23 16 Blood Pressure 137/75 128/80 Pulse Oximetry 94 L 93 L 94 L 09/11/18 21:00 09/11/18 21:17 09/11/18 22:00 Temperature Pulse Rate 94 H 95 H 96 H Respiratory Rate 17 17 17 Blood Pressure 117/66 Pulse Oximetry 94 L 94 L 95 09/11/18 22:17 09/11/18 23:00 09/11/18 23:17 Temperature Pulse Rate 93 H 102 H 101 H Respiratory Rate 17 19 20 Blood Pressure 120/59 L 124/81 Pulse Oximetry 94 L 94 L 98 09/12/18 00:00 09/12/18 00:17 09/12/18 01:00 Temperature 98.1 F Pulse Rate 98 H 103 H 91 H Respiratory Rate 19 36 H 18 Blood Pressure 134/81 134/81 Pulse Oximetry 96 96 95 09/12/18 01:17 09/12/18 02:00 09/12/18 02:17 Temperature Pulse Rate 98 H 100 H 96 H Respiratory Rate 21 29 H 21 Blood Pressure 134/75 114/87 Pulse Oximetry 95 95 94 L 09/12/18 03:00 09/12/18 03:17 09/12/18 04:00 Temperature Pulse Rate 95 H 94 H 98 H Respiratory Rate 19 19 20 Blood Pressure 131/68 Pulse Oximetry 95 95 96 09/12/18 04:17 09/12/18 04:46 09/12/18 05:00 Temperature Pulse Rate 96 H 100 H 98 H Respiratory Rate 19 16 18 Blood Pressure 127/83 Pulse Oximetry 96 98 09/12/18 05:17 09/12/18 06:00 09/12/18 08:02 Temperature 98.0 F Pulse Rate 102 H 84 82 Respiratory Rate 19 20 Blood Pressure 113/71 145/66 H Pulse Oximetry 94 L 99 96 Intake & Output 09/11/18 09/12/18 09/12/18 18:59 06:59 18:59 Intake Total 4817.5 / 4817.5 500 / 500 Output Total 1700 / 1700 850 / 850 Balance 3117.5 / 3117.5 -350 / -350 Weight 108.8 kg Intake: IV 2917.5 / 2917.5 500 / 500 D5W Inj 1,000 ML @ 84 mls/hr IV 1999 / 1999 .CONT .[id number] [facility] Rx#:[id number] Zosyn 4.5 GM Premix 4.5 gm In 100 / 100 300 / 300 100 ml @ 200 mls/hr IV.SIG Q6H [facility] Rx#:[id number] KCl 20 mEq Premix Inj 20 meq In 100 / 100 100 ml @ 50 mls/hr IV.SIG Q2H PRN Rx#:[id number] Vancomycin Inj 1,750 MG In NS 517.5 / 517.5 Inj 500 ML @ 250 mls/hr IV.SIG Q24H [facility] Rx#:[id number] Flagyl 500 MG Inj 100 ML @ 100 200 / 200 200 / 200 mls/hr IV.SIG Q6H [facility] Rx#: [id number] Oral 400 / 400 Anesthesia Amount 1500 / 1500 Output: Urine 740 / 740 Urine Amount (Catheter) 740 / 740 800 / 800 Indwelling Urethral Catheter 740 / 740 800 / 800 Wound Drainage 220 / 220 50 / 50 # 1 Left Lower Abdomen 220 / 220 50 / 50 Other: Date of Last Bowel Movement 09/11/18 09/11/18 # Bowel Movements 2 - Constitutional no acute distress - Routine HEENT Exam Head: Present: normocephalic Comments: crusty herpetic lesions on his face. - Routine Respiratory Exam Present: accessory muscle use, CTA bilaterally - Routine Cardiovascular Exam Present: RRR, S1, S2 - Routine Abdominal Exam Present: soft, normoactive bowel sounds - Routine Neurological Exam Present: alert, oriented X3 - Urinary Catheter Management Indwelling Temp Sensing Catheter Cath placed during this visit: yes, but has since been removed by the nurse Reason for continuing: Decision to DC catheter Insertion date: 08/25/18 Insertion time: 14:20 Removal date: 08/29/18 Removal time: 12:30 Indwelling Urethral Catheter Cath placed during this visit: yes Urethral indwelling: No Reason for continuing: Hourly intake/output Insertion date: 09/06/18 Insertion time: 12:00 Assessment and Plan - Assessment (1) Hypernatremia Code(s): E87.0 - Hyperosmolality and hypernatremia Status: Acute Plan: Improved, continue D5W. Add one more dose of Diuril today. He continues to have edema. (2) Leukocytosis Code(s): D72.829 - Elevated white blood cell count, unspecified Status: Acute Qualifiers: Leukocytosis type: unspecified Qualified Code(s): D72.829 - Elevated white blood cell count, unspecified Plan: Has been diagnosed with pneumonia. Also is on steroids. (3) Pneumonia Code(s): J18.9 - Pneumonia, unspecified organism Status: Acute Qualifiers: Pneumonia type: due to unspecified organism Laterality: bilateral Lung location: unspecified part of lung Qualified Code(s): J18.9 - Pneumonia, unspecified organism Plan: Continue antibiotics, ID following. (4) Hypokalemia Code(s): E87.6 - Hypokalemia Status: Acute Plan: Replace per protocol. I have ordered potassium phosphate. (5) Volvulus Code(s): K56.2 - Volvulus Status: Acute Plan: Volvulus with cecal perforation. s/p surgery.
[2018-09-12] MEDS ORDERED: Chlorothiazide Inj 500 MG Vial IV.PUSH ONE (10:00)
--- NOTE | 2018-09-12 11:31 | P.PN ---
Subjective Interval history: Alert and has no SOB at rest. on o2 5 L. Good output. C/O Blurry right eye vision. Physical Exam Vital signs: Vital Signs 09/11/18 12:00 09/11/18 13:00 09/11/18 14:00 Temperature 99.2 F Pulse Rate 94 H 94 H 104 H Respiratory Rate 20 19 32 H Blood Pressure 140/81 138/75 115/86 Pulse Oximetry 93 L 93 L 96 09/11/18 15:00 09/11/18 16:00 09/11/18 17:00 Temperature 98.5 F Pulse Rate 95 H 98 H 99 H Respiratory Rate 20 20 23 Blood Pressure 127/80 147/78 H 131/71 Pulse Oximetry 98 96 96 09/11/18 17:14 09/11/18 18:00 09/11/18 18:17 Temperature Pulse Rate 92 H 95 H 96 H Respiratory Rate 17 18 20 Blood Pressure 128/67 Pulse Oximetry 92 L 97 09/11/18 19:00 09/11/18 20:00 09/11/18 20:17 Temperature 98.7 F Pulse Rate 99 H 96 H 96 H Respiratory Rate 22 21 23 Blood Pressure 137/75 128/80 Pulse Oximetry 94 L 94 L 93 L 09/11/18 20:26 09/11/18 21:00 09/11/18 21:17 Temperature Pulse Rate 91 H 94 H 95 H Respiratory Rate 16 17 17 Blood Pressure 117/66 Pulse Oximetry 94 L 94 L 94 L 09/11/18 22:00 09/11/18 22:17 09/11/18 23:00 Temperature Pulse Rate 96 H 93 H 102 H Respiratory Rate 17 17 19 Blood Pressure 120/59 L Pulse Oximetry 95 94 L 94 L 09/11/18 23:17 09/12/18 00:00 09/12/18 00:17 Temperature 98.1 F Pulse Rate 101 H 98 H 103 H Respiratory Rate 20 19 36 H Blood Pressure 124/81 134/81 134/81 Pulse Oximetry 98 96 96 09/12/18 01:00 09/12/18 01:17 09/12/18 02:00 Temperature Pulse Rate 91 H 98 H 100 H Respiratory Rate 18 21 29 H Blood Pressure 134/75 Pulse Oximetry 95 95 95 09/12/18 02:17 09/12/18 03:00 12/06/18 03:17 Temperature Pulse Rate 96 H 95 H 94 H Respiratory Rate 21 19 19 Blood Pressure 114/87 131/68 Pulse Oximetry 94 L 95 95 09/12/18 04:00 09/12/18 04:17 09/12/18 04:46 Temperature Pulse Rate 98 H 96 H 100 H Respiratory Rate 20 19 16 Blood Pressure 127/83 Pulse Oximetry 96 96 09/12/18 05:00 09/12/18 05:17 09/12/18 06:00 Temperature 98.0 F Pulse Rate 98 H 102 H 84 Respiratory Rate 18 19 Blood Pressure 113/71 145/66 H Pulse Oximetry 98 94 L 99 09/12/18 08:02 Temperature Pulse Rate 82 Respiratory Rate 20 Blood Pressure Pulse Oximetry 96 Intake & Output 09/11/18 09/12/18 09/12/18 18:59 06:59 18:59 Intake Total 4817.5 / 4817.5 500 / 500 Output Total 1700 / 1700 850 / 850 Balance 3117.5 / 3117.5 -350 / -350 Weight 108.8 kg Intake: IV 2917.5 / 2917.5 500 / 500 D5W Inj 1,000 ML @ 84 mls/hr IV 1999 / 1999 .CONT .[id number] B[facility] Rx#:[id number] Zosyn 4.5 GM Premix 4.5 gm In 100 / 100 300 / 300 100 ml @ 200 mls/hr IV.SIG Q6H B[facility] Rx#:[id number] KCl 20 mEq Premix Inj 20 meq In 100 / 100 100 ml @ 50 mls/hr IV.SIG Q2H PRN Rx#:[id number] Vancomycin Inj 1,750 MG In NS 517.5 / 517.5 Inj 500 ML @ 250 mls/hr IV.SIG Q24H B[facility]ANNA Rx#:[id number] Flagyl 500 MG Inj 100 ML @ 100 200 / 200 200 / 200 mls/hr IV.SIG Q6H B[facility]ANNA Rx#: [id number] Oral 400 / 400 Anesthesia Amount 1500 / 1500 Output: Urine 740 / 740 Urine Amount (Catheter) 740 / 740 800 / 800 Indwelling Urethral Catheter 740 / 740 800 / 800 Wound Drainage 220 / 220 50 / 50 # 1 Left Lower Abdomen 220 / 220 50 / 50 Other: Date of Last Bowel Movement 09/11/18 09/11/18 # Bowel Movements 2 Narrative: Alert and awake GENERAL: Elderly w/m NAD. SKIN: Warm and dry. HEAD: Atraumatic. Normocephalic. EYES: Pupils equal and round. No scleral icterus. No injection or drainage. ENT: No nasal bleeding or discharge. Mucous membranes pink and moist. NECK: Trachea midline. No JVD. CARDIOVASCULAR: Regular rate and rhythm. RESPIRATORY: No accessory muscle use.Few basal crackles. Breath sounds equal bilaterally. GASTROINTESTINAL: Abdomen soft, non-tender, nondistended. Hepatic and splenic margins not palpable. MUSCULOSKELETAL: Extremities without clubbing, cyanosis, but has edema. No obvious deformities. NEUROLOGICAL: Awake and alert. No obvious cranial nerve deficits. Motor grossly within normal limits. Normal speech. PSYCHIATRIC: Appropriate mood and affect. - Urinary Catheter Management Indwelling Temp Sensing Catheter Cath placed during this visit: yes, but has since been removed by the nurse Reason for continuing: Decision to DC catheter Insertion date: 08/25/18 Insertion time: 14:20 Removal date: 08/29/18 Removal time: 12:30 Indwelling Urethral Catheter Cath placed during this visit: yes Urethral indwelling: No Reason for continuing: Hourly intake/output Insertion date: 09/06/18 Insertion time: 12:00 Results - Labs CBC & Chem 7: 09/12/18 04:51 09/12/18 04:51 Laboratory Results - last 24 hr 09/11/18 09/11/18 09/12/18 11:23 17:19 04:51 WBC RBC Hgb Hct MCV MCH MCHC RDW Plt Count MPV Sodium 144 144 Potassium 3.1 L 3.0 L Chloride 109 H 109 H Carbon Dioxide 27.7 26.3 Anion Gap 7 9 BUN 23 H 20 H Creatinine 1.06 0.98 Estimated GFR 67 L 73 L Random Glucose 174 H 136 H Calcium 8.6 8.4 L Phosphorus 1.7 L Total Bilirubin 0.7 0.7 AST 34 30 ALT 33 31 Alkaline Phosphatase 70 66 Total Protein 5.2 L 5.1 L Albumin 1.6 L 1.5 L 09/12/18 04:51 WBC 14.0 H RBC 3.33 L Hgb 10.5 L Hct 31.7 L MCV 95.2 MCH 31.5 MCHC 33.1 RDW 15.8 Plt Count 203 MPV 9.5 Sodium Potassium Chloride Carbon Dioxide Anion Gap BUN Creatinine Estimated GFR Random Glucose Calcium Phosphorus Total Bilirubin AST ALT Alkaline Phosphatase Total Protein Albumin Assessment and Plan - Assessment (1) COPD (chronic obstructive pulmonary disease) Code(s): J44.9 - Chronic obstructive pulmonary disease, unspecified Status: Acute (2) Severe sepsis Code(s): A41.9 - Sepsis, unspecified organism; R65.20 - Severe sepsis without septic shock Status: Acute (3) Pneumonia Code(s): J18.9 - Pneumonia, unspecified organism Status: Acute (4) Acute respiratory failure with hypoxia and hypercapnia Code(s): J96.01 - Acute respiratory failure with hypoxia; J96.02 - Acute respiratory failure with hypercapnia Status: Acute (5) Lactic acidosis Code(s): E87.2 - Acidosis Status: Acute (6) Atrial fibrillation with rapid ventricular response Code(s): I48.91 - Unspecified atrial fibrillation Status: Acute (7) Acute kidney injury Code(s): N17.9 - Acute kidney failure, unspecified Status: Acute (8) Chronic steroid use Status: Chronic (9) Hypertension Code(s): I10 - Essential (primary) hypertension Status: Chronic (10) Pulmonary cavitary lesion Code(s): J98.4 - Other disorders of lung Status: Acute (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 Cont on Home CPAP ,FIO2 30 % at HS 2. O2 N/C 4 L daytime 3. Duoneb nebs q6h 4. Transfer to tele 5. Continue antibiotics per ID . 6. EzPAP with Nebs qid. 7. Continue Eliquis 5 mg BID. 8. Cont Breo 200/25 Mcg, 1 puff daily 9. PT evaluation for activity (3) Pneumonia Qualifiers: Pneumonia type: due to unspecified organism Laterality: bilateral Lung location: unspecified part of lung Qualified Code(s): J18.9 - Pneumonia, unspecified organism (9) Hypertension Qualifiers: Hypertension type: essential hypertension Qualified Code(s): I10 - Essential (primary) hypertension
--- NOTE | 2018-09-12 12:02 | P.PNGS ---
Subjective Patient reports: no new complaints, feels better, tolerating a regular diet, bowel movement Physical Exam Vital signs: Vital Signs 09/11/18 13:00 09/11/18 14:00 09/11/18 15:00 Temperature Pulse Rate 94 H 104 H 95 H Respiratory Rate 19 32 H 20 Blood Pressure 138/75 115/86 127/80 Pulse Oximetry 93 L 96 98 09/11/18 16:00 09/11/18 17:00 09/11/18 17:14 Temperature 98.5 F Pulse Rate 98 H 99 H 92 H Respiratory Rate 20 23 17 Blood Pressure 147/78 H 131/71 Pulse Oximetry 96 96 09/11/18 18:00 09/11/18 18:17 09/11/18 19:00 Temperature Pulse Rate 95 H 96 H 99 H Respiratory Rate 18 20 22 Blood Pressure 128/67 Pulse Oximetry 92 L 97 94 L 09/11/18 20:00 09/11/18 20:17 09/11/18 20:26 Temperature 98.7 F Pulse Rate 96 H 96 H 91 H Respiratory Rate 21 23 16 Blood Pressure 137/75 128/80 Pulse Oximetry 94 L 93 L 94 L 09/11/18 21:00 09/11/18 21:17 09/11/18 22:00 Temperature Pulse Rate 94 H 95 H 96 H Respiratory Rate 17 17 17 Blood Pressure 117/66 Pulse Oximetry 94 L 94 L 95 09/11/18 22:17 09/11/18 23:00 09/11/18 23:17 Temperature Pulse Rate 93 H 102 H 101 H Respiratory Rate 17 19 20 Blood Pressure 120/59 L 124/81 Pulse Oximetry 94 L 94 L 98 09/12/18 00:00 09/12/18 00:17 09/12/18 01:00 Temperature 98.1 F Pulse Rate 98 H 103 H 91 H Respiratory Rate 19 36 H 18 Blood Pressure 134/81 134/81 Pulse Oximetry 96 96 95 09/12/18 01:17 09/12/18 02:00 09/12/18 02:17 Temperature Pulse Rate 98 H 100 H 96 H Respiratory Rate 21 29 H 21 Blood Pressure 134/75 114/87 Pulse Oximetry 95 95 94 L 09/12/18 03:00 09/12/18 03:17 09/12/18 04:00 Temperature Pulse Rate 95 H 94 H 98 H Respiratory Rate 19 19 20 Blood Pressure 131/68 Pulse Oximetry 95 95 96 09/12/18 04:17 09/12/18 04:46 09/12/18 05:00 Temperature Pulse Rate 96 H 100 H 98 H Respiratory Rate 19 16 18 Blood Pressure 127/83 Pulse Oximetry 96 98 09/12/18 05:17 09/12/18 06:00 09/12/18 08:02 Temperature 98.0 F Pulse Rate 102 H 84 82 Respiratory Rate 19 20 Blood Pressure 113/71 145/66 H Pulse Oximetry 94 L 99 96 Intake & Output 09/11/18 09/12/18 09/12/18 18:59 06:59 18:59 Intake Total 4817.5 / 4817.5 500 / 500 Output Total 1700 / 1700 850 / 850 Balance 3117.5 / 3117.5 -350 / -350 Weight 108.8 kg Intake: IV 2917.5 / 2917.5 500 / 500 D5W Inj 1,000 ML @ 84 mls/hr IV 1999 / 1999 .CONT .[id number] [facility] Rx#:[id number] Zosyn 4.5 GM Premix 4.5 gm In 100 / 100 300 / 300 100 ml @ 200 mls/hr IV.SIG Q6H [facility] Rx#:[id number] KCl 20 mEq Premix Inj 20 meq In 100 / 100 100 ml @ 50 mls/hr IV.SIG Q2H PRN Rx#:[id number] Vancomycin Inj 1,750 MG In NS 517.5 / 517.5 Inj 500 ML @ 250 mls/hr IV.SIG Q24H [facility] Rx#:[id number] Flagyl 500 MG Inj 100 ML @ 100 200 / 200 200 / 200 mls/hr IV.SIG Q6H [facility]AN[facility] Rx#: [id number] Oral 400 / 400 Anesthesia Amount 1500 / 1500 Output: Urine 740 / 740 Urine Amount (Catheter) 740 / 740 800 / 800 Indwelling Urethral Catheter 740 / 740 800 / 800 Wound Drainage 220 / 220 50 / 50 # 1 Left Lower Abdomen 220 / 220 50 / 50 Other: Date of Last Bowel Movement 09/11/18 09/11/18 # Bowel Movements 2 - Routine Abdominal Exam Present: soft (incisional tenderness, james serous) - Urinary Catheter Management Indwelling Temp Sensing Catheter Cath placed during this visit: yes, but has since been removed by the nurse Reason for continuing: Decision to DC catheter Insertion date: 08/25/18 Insertion time: 14:20 Removal date: 08/29/18 Removal time: 12:30 Indwelling Urethral Catheter Cath placed during this visit: yes Urethral indwelling: No Reason for continuing: Hourly intake/output Insertion date: 09/06/18 Insertion time: 12:00 Results - Labs 09/12/18 04:51 09/12/18 04:51 Laboratory Results - last 24 hr 09/11/18 09/11/18 09/12/18 11:23 17:19 04:51 WBC RBC Hgb Hct MCV MCH MCHC RDW Plt Count MPV Sodium 144 144 Potassium 3.1 L 3.0 L Chloride 109 H 109 H Carbon Dioxide 27.7 26.3 Anion Gap 7 9 BUN 23 H 20 H Creatinine 1.06 0.98 Estimated GFR 67 L 73 L Random Glucose 174 H 136 H Calcium 8.6 8.4 L Phosphorus 1.7 L Total Bilirubin 0.7 0.7 AST 34 30 ALT 33 31 Alkaline Phosphatase 70 66 Total Protein 5.2 L 5.1 L Albumin 1.6 L 1.5 L 09/12/18 04:51 WBC 14.0 H RBC 3.33 L Hgb 10.5 L Hct 31.7 L MCV 95.2 MCH 31.5 MCHC 33.1 RDW 15.8 Plt Count 203 MPV 9.5 Sodium Potassium Chloride Carbon Dioxide Anion Gap BUN Creatinine Estimated GFR Random Glucose Calcium Phosphorus Total Bilirubin AST ALT Alkaline Phosphatase Total Protein Albumin - Imaging Imaging: ITS Impressions Abdomen/Bladder Ultrasound 08/25/18 00:00 CONCLUSION: 1. No evidence of hydronephrosis. 2. Bilateral renal cysts, mostly simple, with one cyst demonstrating homogeneous low level echoes, located in the midpole the left kidney and measuring 4 cm. Venous Doppler Study 08/25/18 00:00 CONCLUSION: 1. The study is negative for bilateral lower extremity deep venous thrombosis. Chest CT 09/05/18 00:00 CONCLUSION: 1. 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 2. Right lower lobe cavitary mass. 3. Probably benign left adrenal lesion Head CT 09/05/18 00:00 CONCLUSION: 1. No acute intracranial abnormalities. . Abdomen/Pelvis CT 09/07/18 00:00 CONCLUSION: 1. Status post recent abdominal surgery with free air throughout the abdomen. 2. Mild air-filled loops of small bowel suggestive of a postoperative ileus. 3. Otherwise no other significant changes are seen compared to the prior exam. Chest X-Ray 09/11/18 00:00 CONCLUSION: Slight improvement in the bilateral infiltrates. 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 PT ok for blood thinner huang for i and o, and lasix monitor labs transfer to floor pt appears stable for med[facility] transport from surgical stand point
[2018-09-12] MEDS: Pantoprazole Inj 40 MG Vial IV.PUSH SCH (12:06)
--- NOTE | 2018-09-12 14:44 | P.PNIM ---
Subjective Interval history: Patient reports he is feeling stronger today. He is hoping to get strong enough to be able to return back home [place] before [place]. No increase in shortness of breath. Stable on nasal cannula. Using BiPAP at night. Physical Exam Vital signs: Last Vital Signs Temp 98.2 F 09/12/18 12:00 Pulse 105 H 09/12/18 12:00 Resp 31 H 09/12/18 12:00 BP 127/73 09/12/18 12:00 Pulse Ox 98 09/12/18 12:00 Intake & Output 09/10/18 09/11/18 09/12/18 09/13/18 06:59 06:59 06:59 06:59 Intake Total 700 / 700 4954.5 / 4954.5 5317.5 / 5317.5 1200 / 1200 Output Total 1635 / 1635 1890 / 1890 2550 / 2550 Balance -935 / -935 3064.5 / 3064.5 2767.5 / 2767.5 1200 / 1200 Weight 111.7 kg 110 kg 108.8 kg Narrative: GENERAL: Elderly obese male sitting up in bed. CARDIOVASCULAR: Regular rate and rhythm. RESPIRATORY: No accessory muscle use. air movement is fair. crackles at the bases bilaterally. GASTROINTESTINAL: Abdomen soft, nondistended. Dressing in place. Appropriately tender around the surgical site. MUSCULOSKELETAL: Extremities without clubbing, cyanosis,but has 2 + edema. NEUROLOGICAL: Generalized weakness. Overall improving. Urinary Catheter Management Indwelling Temp Sensing Catheter: Cath placed during this visit: yes, but has since been removed by the nurse Insertion date: 08/25/18 Insertion time: 14:20 Removal date: 08/29/18 Removal time: 12:30 Indwelling Urethral Catheter: Cath placed during this visit: yes Urethral indwelling: No Insertion date: 09/06/18 Insertion time: 12:00 Results Labs CBC & Chem 7: 09/12/18 04:51 09/12/18 04:51 Assessment and Plan (1) COPD (chronic obstructive pulmonary disease): Code(s): J44.9 - Chronic obstructive pulmonary disease, unspecified Status: Acute (2) Severe sepsis: Code(s): A41.9 - Sepsis, unspecified organism; R65.20 - Severe sepsis without septic shock Status: Acute (3) Pneumonia: Code(s): J18.9 - Pneumonia, unspecified organism Status: Acute (4) Acute respiratory failure with hypoxia and hypercapnia: Code(s): J96.01 - Acute respiratory failure with hypoxia; J96.02 - Acute respiratory failure with hypercapnia Status: Acute (5) Lactic acidosis: Code(s): E87.2 - Acidosis Status: Acute (6) Atrial fibrillation with rapid ventricular response: Code(s): I48.91 - Unspecified atrial fibrillation Status: Acute (7) Acute kidney injury: Code(s): N17.9 - Acute kidney failure, unspecified Status: Acute (8) Chronic steroid use: Status: Chronic (9) Hypertension: Code(s): I10 - Essential (primary) hypertension Status: Chronic (10) Pulmonary cavitary lesion: Code(s): J98.4 - Other disorders of lung Status: Acute (11) Status post colectomy: Code(s): Z90.49 - Acquired absence of other specified parts of digestive tract Status: Acute (12) Atelectasis of both lungs: Code(s): J98.11 - Atelectasis Status: Acute Plan 83 Y/O male with acute respiratory failure secondary to pneumonia. His ICU course is somewhat prolonged. Has had issues with agitation at night and not wearing bipap. Pneumonia is persisting. His antibiotics were changed. He is showing some improvement. Pulmonology following. Continue to treat pneumonia per ID. He is very deconditioned and will likely need rehab. His '[place]. Other active issues include hypernatremia and sundowning. 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 Continue rehabilitation efforts. Transfer to medical floor. Community acquired pneumonia Perforated viscus Blood cultures from 08/25 grew Haemophilus influenza sensitive to penicillins/ cephalosporins, s/p ceftriaxone Repeat blood cultures sent on 08/27 negative thus far Sputum and urine cultures no growth to date Flu and MRSA swabs negative Legionella and pneumococcus negative ID following for antibiotic management. 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 NG tube discontinued, diet advanced to liquid diet per general surgery. Pantoprazole for GI prophylaxis Docusate sodium/senna 1 tablet twice daily for bowel regimen General surgery following. Shane dressing and drain in place. WESLEY, resolved Hypernatremia Hypokalemia BID lasix dosing, hold No urine eosinophils noted Renal ultrasound - bilateral renal cyst. Possible hemorrhagic left renal cyst Avoid nephrotoxic medication Monitor urine output Accurate I's and O's Nephrology following. Hypernatremia resolving. On D5W per nephrology. Follow-up BMP in a.m. Potassium replacement. Check mag Atrial fibrillation with rapid ventricular response currently rate controlled Elevated troponin History of essential hypertension Hyperlipidemia Lactic acidosis Trop 0.27 on admission, most recent 0.08, no longer trending Echo: EF 45%, RV enlargement/ dysfunction, PAP 38 mm Hg Continue beta-tristian Eliquis restarted. Hypokalemia -Replace per ICU protocol. Check mag Delirium: Likely related to medical conditions and ICU: Much improved. He is sleeping better and is more appropriate. -Delirium precautions (lights on/ shades up during the day, limit nighttime disruptions, frequent reorientation, use hearing aids) Prophylaxis -GI -pantoprazole -DVT -SCD/apixaban Patient is overall improving. Transfer to medical floor. Continue rehab efforts. [place] is looking into [facility]. Discharge Planning: Continue care in the ICU. Consider transfer to medical floor tomorrow if he remains stable. Progress Note: Quality VTE Deep Vein Thrombosis/Pulmonary Embolism Present on Admission: No _ (1) COPD (chronic obstructive pulmonary disease) Qualifiers: COPD type: Chronic bronchitis type: Emphysema type: (2) Pneumonia Qualifiers: Aspiration pneumonia type: Laterality: bilateral Lung location: unspecified part of lung Pneumonia type: due to unspecified organism Qualified Code(s): J18.9 - Pneumonia, unspecified organism (3) Hypertension Qualifiers: Hypertension type: essential hypertension Qualified Code(s): I10 - Essential (primary) hypertension
[2018-09-12] MEDS ORDERED: Pharmacy Ordered Lab Info OTHER ONE (23:45)
[2018-09-13] MEDS: Vancomycin Inj 1,750 MG in Sodium Chlor 0.9% Inj 500 ML IV.SIG SCH (01:55)
[2018-09-13 02:07] LABS: Hematocrit 28.6 % (39.0-51.0); Hemoglobin 9.7 gm/dL (13.0-17.0); Mean Corpuscular HGB Conc 33.7 % (32.0-36.0); Mean Corpuscular Hemoglobin 31.7 pg (27.0-34.0); Mean Corpuscular Volume 94.1 fL (80.0-100.0); Mean Platelet Volume 9.4 fL (7.0-11.0); Platelet Count 182 th/mm3 (150-450); Red Blood Count 3.04 mil/mm3 (4.50-5.90); Red Cell Distribution Width 15.6 % (11.6-17.2)
[2018-09-13] MEDS: Oral Hygiene Kit OROPHARYNG SCH ×4 (02:12→15:16)
[2018-09-13 02:33] LABS: Calcium 8.1 mg/dL (8.5-10.1); Carbon Dioxide 31.4 meq/L (21.0-32.0); Magnesium 1.8 mg/dL (1.5-2.5); Phosphorus 3.1 mg/dL (2.5-4.9); Vancomycin,Trough 22.9 mcg/mL (5.0-10.0)
[2018-09-13 02:56] LABS: Potassium 2.9 meq/L (3.5-5.1)
[2018-09-13] MEDS: Piperacil/Tazo 4.5 GM Premix 4.5 GM/100 ML BAG IV.SIG SCH ×4 (04:23→22:45)
[2018-09-13] MEDS: Artificial Tears Opth Drops 15 ML Bottle EACH EYE SCH ×3 (06:14→23:38)
[2018-09-13] MEDS: Dextrose 5% in Water Inj 1,000 ML IV.CONT SCH (06:45)
[2018-09-13] MEDS: Chlorhexidine 0.12% Oral Kit 15 ML UDC OROPHARYNG SCH ×2 (07:33→21:14)
[2018-09-13] MEDS ORDERED: Potassium Chlor 40 mEq Premix 40 MEQ/100 ML PIGGYBACK IV.SIG ONE (09:27)
[2018-09-13] MEDS: Lactobacillus Acidophilus/L. Spores Tablet PO SCH ×2 (09:33→21:13)
[2018-09-13] MEDS: Senna/Docusate Sodium 8.6/50 MG Tablet PO SCH ×2 (09:33→21:13)
--- NOTE | 2018-09-13 09:33 | P.PNNP ---
Subjective Interval history: Patient was seen, no distress, no complaints. Patient seen on 2 L NC. Patient's K is 2.9, Potassium replacement was ordered. Patient's Na is 145. Patient's Phosphorus has improved, is 3.1. <Steven Limon - Last Filed: 09/13/18 09:33> Physical Exam Vital signs: Vital Signs 09/12/18 10:00 09/12/18 10:17 09/12/18 11:00 Temperature 98.0 F 98.0 F Pulse Rate 100 H 105 H 98 H Respiratory Rate 23 25 H 18 Blood Pressure 120/84 120/84 134/69 Pulse Oximetry 98 98 97 09/12/18 11:17 09/12/18 11:39 09/12/18 12:00 Temperature 98.2 F Pulse Rate 100 H 103 H 105 H Respiratory Rate 24 24 31 H Blood Pressure 134/69 127/73 127/73 Pulse Oximetry 96 96 98 09/12/18 12:17 09/12/18 13:00 09/12/18 13:17 Temperature Pulse Rate 103 H 95 H 100 H Respiratory Rate 16 21 20 Blood Pressure 102/66 117/72 Pulse Oximetry 98 99 97 09/12/18 14:00 09/12/18 14:17 09/12/18 15:00 Temperature Pulse Rate 94 H 89 94 H Respiratory Rate 23 22 24 Blood Pressure 119/76 Pulse Oximetry 92 L 96 98 09/12/18 15:27 09/12/18 16:00 09/12/18 16:17 Temperature 98.7 F Pulse Rate 102 H 96 H 97 H Respiratory Rate 24 20 23 Blood Pressure 128/71 128/71 Pulse Oximetry 97 97 09/12/18 17:00 09/12/18 17:17 09/12/18 18:00 Temperature 98.8 F 98.0 F Pulse Rate 92 H 92 H 90 Respiratory Rate 17 18 19 Blood Pressure 134/69 134/69 Pulse Oximetry 97 94 L 96 09/12/18 18:17 09/12/18 20:00 09/12/18 20:20 Temperature 97.6 F Pulse Rate 91 H 94 H 86 Respiratory Rate 12 14 15 Blood Pressure 116/70 130/77 Pulse Oximetry 92 L 98 09/12/18 22:55 09/12/18 23:53 09/13/18 00:00 Temperature 97.1 F L 97.3 F L Pulse Rate 91 H 98 H Respiratory Rate 18 Blood Pressure 125/78 119/74 Pulse Oximetry 99 98 99 09/13/18 04:00 09/13/18 08:00 09/13/18 08:17 Temperature 97.2 F L 97.4 F L Pulse Rate 94 H 97 H 89 Respiratory Rate 18 18 18 Blood Pressure 120/64 107/69 Pulse Oximetry 98 93 L 95 Intake & Output 09/12/18 09/13/18 09/13/18 18:59 06:59 18:59 Intake Total 1820 / 1820 2260 / 2260 517.5 / 517.5 Output Total 1075 / 1075 730 / 730 Balance 745 / 745 1530 / 1530 517.5 / 517.5 Weight 105.3 kg Intake: IV 1400 / 1400 1660 / 1660 517.5 / 517.5 D5W Inj 1,000 ML @ 84 mls/hr IV 1000 / 1000 1000 / 1000 .CONT .[id number] [facility] Rx#:[id number] Zosyn 4.5 GM Premix 4.5 gm In 200 / 200 200 / 200 100 ml @ 200 mls/hr IV.SIG Q6H [facility] Rx#:[id number] Potassium Phosphate Inj 30 MMOL 260 / 260 In NS Inj 250 ML @ 42 mls/hr IV.SIG UNSCH PRN Rx#:[id number] Vancomycin Inj 1,750 MG In NS 517.5 / 517.5 Inj 500 ML @ 250 mls/hr IV.SIG Q24H [facility] Rx#:[id number] Flagyl 500 MG Inj 100 ML @ 100 200 / 200 200 / 200 mls/hr IV.SIG Q6H [facility] Rx#: [id number] Oral 420 / 420 600 / 600 Output: Urine 100 / 100 400 / 400 Urine Amount (Catheter) 850 / 850 Indwelling Urethral Catheter 850 / 850 Wound Drainage 125 / 125 330 / 330 # 1 Left Lower Abdomen 125 / 125 330 / 330 Other: # Voids 1 Date of Last Bowel Movement 09/12/18 09/12/18 # Bowel Movements 1 0 Weight On Admission 105.8 kg - Constitutional no acute distress - Routine HEENT Exam Head: Present: normocephalic Eye: Present: EOMI, PERRL ENT: Present: mucous membranes moist - Routine Neck Exam Present: trachea midline. Absent: tracheal deviation - Routine Respiratory Exam Present: crackles. Absent: accessory muscle use Comments: Patient on 2 L nasal cannula. - Routine Abdominal Exam Present: soft. Absent: firm - Routine Extremities Exam Present: edema Comments: 2+ pitting edema, bilateral lower extremities. - Routine Neurological Exam Present: alert - Routine Psychiatric Exam Present: normal affect - Urinary Catheter Management Indwelling Temp Sensing Catheter Cath placed during this visit: yes, but has since been removed by the nurse Reason for continuing: Decision to DC catheter Insertion date: 08/25/18 Insertion time: 14:20 Removal date: 08/29/18 Removal time: 12:30 Indwelling Urethral Catheter Cath placed during this visit: yes Urethral indwelling: No Reason for continuing: Hourly intake/output Insertion date: 09/06/18 Insertion time: 12:00 <Steven Limon - Last Filed: 09/13/18 09:33> Vital signs: Vital Signs 09/12/18 14:17 09/12/18 15:00 09/12/18 15:27 Temperature Pulse Rate 89 94 H 102 H Respiratory Rate 22 24 24 Blood Pressure 119/76 Pulse Oximetry 96 98 09/12/18 16:00 09/12/18 16:17 09/12/18 17:00 Temperature 98.7 F 98.8 F Pulse Rate 96 H 97 H 92 H Respiratory Rate 20 23 17 Blood Pressure 128/71 128/71 134/69 Pulse Oximetry 97 97 97 09/12/18 17:17 09/12/18 18:00 09/12/18 18:17 Temperature 98.0 F Pulse Rate 92 H 90 91 H Respiratory Rate 18 19 12 Blood Pressure 134/69 116/70 Pulse Oximetry 94 L 96 92 L 09/12/18 20:00 09/12/18 20:20 09/12/18 22:55 Temperature 97.6 F 97.1 F L Pulse Rate 94 H 86 91 H Respiratory Rate 14 15 Blood Pressure 130/77 125/78 Pulse Oximetry 98 99 09/12/18 23:53 09/13/18 00:00 09/13/18 04:00 Temperature 97.3 F L 97.2 F L Pulse Rate 98 H 94 H Respiratory Rate 18 18 Blood Pressure 119/74 120/64 Pulse Oximetry 98 99 98 09/13/18 08:00 09/13/18 08:17 09/13/18 12:00 Temperature 97.4 F L 97.4 F L Pulse Rate 90 89 103 H Respiratory Rate 18 18 20 Blood Pressure 107/69 116/77 Pulse Oximetry 93 L 95 93 L Intake & Output 09/12/18 09/13/18 09/13/18 18:59 06:59 18:59 Intake Total 1820 / 1820 2260 / 2260 817.5 / 817.5 Output Total 1075 / 1075 730 / 730 Balance 745 / 745 1530 / 1530 817.5 / 817.5 Weight 105.3 kg Intake: IV 1400 / 1400 1660 / 1660 817.5 / 817.5 D5W Inj 1,000 ML @ 84 mls/hr IV 1000 / 1000 1000 / 1000 .CONT .[id number] [facility] Rx#:[id number] Zosyn 4.5 GM Premix 4.5 gm In 200 / 200 200 / 200 100 / 100 100 ml @ 200 mls/hr IV.SIG Q6H [facility] Rx#:[id number] KCl 40 mEq Premix Inj 40 meq In 100 / 100 100 ml @ 25 mls/hr IV.SIG ONCE ONE Rx#:[id number] Potassium Phosphate Inj 30 MMOL 260 / 260 In NS Inj 250 ML @ 42 mls/hr IV.SIG UNSCH PRN Rx#:[id number] Vancomycin Inj 1,750 MG In NS 517.5 / 517.5 Inj 500 ML @ 250 mls/hr IV.SIG Q24H [facility] Rx#:[id number] Flagyl 500 MG Inj 100 ML @ 100 200 / 200 200 / 200 100 / 100 mls/hr IV.SIG Q6H [facility] Rx#: [id number] Oral 420 / 420 600 / 600 Output: Urine 100 / 100 400 / 400 Urine Amount (Catheter) 850 / 850 Indwelling Urethral Catheter 850 / 850 Wound Drainage 125 / 125 330 / 330 # 1 Left Lower Abdomen 125 / 125 330 / 330 Other: # Voids 1 Date of Last Bowel Movement 09/12/18 09/12/18 # Bowel Movements 1 0 Weight On Admission 105.8 kg - Urinary Catheter Management Indwelling Temp Sensing Catheter Cath placed during this visit: no Indwelling Urethral Catheter Cath placed during this visit: no <Wang Hunt - Last Filed: 09/13/18 14:12> Assessment and Plan - Assessment (1) Hypernatremia Code(s): E87.0 - Hyperosmolality and hypernatremia Status: Acute Plan: Improved, on D5W. One dose of Diuril given yesterday. He continues to have edema. (2) Leukocytosis Code(s): D72.829 - Elevated white blood cell count, unspecified Status: Acute Qualifiers: Leukocytosis type: unspecified Qualified Code(s): D72.829 - Elevated white blood cell count, unspecified Plan: Has been diagnosed with pneumonia. Also is on steroids. (3) Pneumonia Code(s): J18.9 - Pneumonia, unspecified organism Status: Acute Qualifiers: Pneumonia type: due to unspecified organism Laterality: bilateral Lung location: unspecified part of lung Qualified Code(s): J18.9 - Pneumonia, unspecified organism Plan: Continue antibiotics, ID following. (4) Hypokalemia Code(s): E87.6 - Hypokalemia Status: Acute Plan: Replace per protocol. I have ordered potassium chloride. (5) Volvulus Code(s): K56.2 - Volvulus Status: Acute Plan: Volvulus with cecal perforation. s/p surgery. <Steven Limon - Last Filed: 09/13/18 09:33> - Assessment (1) Hypernatremia Code(s): E87.0 - Hyperosmolality and hypernatremia Status: Acute (2) Leukocytosis Code(s): D72.829 - Elevated white blood cell count, unspecified Status: Acute Qualifiers: Leukocytosis type: unspecified Qualified Code(s): D72.829 - Elevated white blood cell count, unspecified (3) Pneumonia Code(s): J18.9 - Pneumonia, unspecified organism Status: Acute Qualifiers: Pneumonia type: due to unspecified organism Laterality: bilateral Lung location: unspecified part of lung Qualified Code(s): J18.9 - Pneumonia, unspecified organism (4) Hypokalemia Code(s): E87.6 - Hypokalemia Status: Acute (5) Volvulus Code(s): K56.2 - Volvulus Status: Acute - Attending Attestation patient was seen and examined. Replace potassium. Continue D5W. Encourage oral intake. We will see as needed. <Wang Hunt - Last Filed: 09/13/18 14:12>
--- NOTE | 2018-09-13 10:51 | P.PNID ---
Subjective Remarks: ID Coverage 83-year-old white male was admitted to the hospital on 08/25/2018. Patient presented with shortness of breath. Chest x-ray showed bilateral infiltrates and white blood cell count was elevated. Had undergone surgery for perforated viscus, R hemicolectomy, primary anastomosis Mycoplasma IgG is positive. Mycoplasma IgM is negative. Chlamydia IgG positive. Legionella and strep antigen were negative. 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 History of lithotripsy History of arthroplasty of the knee History of trigeminal neuralgia. Allergies/Adverse Reactions: Allergies amiodarone Allergy (Intermediate, Verified 11/15/17 10:35) BLACK LUNGS atorvastatin [From Lipitor] Adverse Reaction (Unknown, Verified 09/05/18 15:05) Joint Pain fluvastatin [From Lescol] Adverse Reaction (Unknown, Verified 09/05/18 15:05) UNKNOWN Sulfa (Sulfonamide Antibiotics) Adverse Reaction (Verified 09/05/18 15:05) Abdominal Pain Objective Vital Signs 09/12/18 11:00 09/12/18 11:17 09/12/18 11:39 Temperature 98.0 F Pulse Rate 98 H 100 H 103 H Respiratory Rate 18 24 24 Blood Pressure 134/69 134/69 127/73 Pulse Oximetry 97 96 96 09/12/18 12:00 09/12/18 12:17 09/12/18 13:00 Temperature 98.2 F Pulse Rate 105 H 103 H 95 H Respiratory Rate 31 H 16 21 Blood Pressure 127/73 102/66 Pulse Oximetry 98 98 99 09/12/18 13:17 09/12/18 14:00 09/12/18 14:17 Temperature Pulse Rate 100 H 94 H 89 Respiratory Rate 20 23 22 Blood Pressure 117/72 119/76 Pulse Oximetry 97 92 L 96 09/12/18 15:00 09/12/18 15:27 09/12/18 16:00 Temperature 98.7 F Pulse Rate 94 H 102 H 96 H Respiratory Rate 24 24 20 Blood Pressure 128/71 Pulse Oximetry 98 97 09/12/18 16:17 09/12/18 17:00 09/12/18 17:17 Temperature 98.8 F Pulse Rate 97 H 92 H 92 H Respiratory Rate 23 17 18 Blood Pressure 128/71 134/69 134/69 Pulse Oximetry 97 97 94 L 09/12/18 18:00 09/12/18 18:17 09/12/18 20:00 Temperature 98.0 F 97.6 F Pulse Rate 90 91 H 94 H Respiratory Rate 19 12 14 Blood Pressure 116/70 130/77 Pulse Oximetry 96 92 L 98 09/12/18 20:20 09/12/18 22:55 09/12/18 23:53 Temperature 97.1 F L Pulse Rate 86 91 H Respiratory Rate 15 Blood Pressure 125/78 Pulse Oximetry 99 98 09/13/18 00:00 09/13/18 04:00 09/13/18 08:00 Temperature 97.3 F L 97.2 F L 97.4 F L Pulse Rate 98 H 94 H 97 H Respiratory Rate 18 18 18 Blood Pressure 119/74 120/64 107/69 Pulse Oximetry 99 98 93 L 09/13/18 08:17 Temperature Pulse Rate 89 Respiratory Rate 18 Blood Pressure Pulse Oximetry 95 Intake & Output 09/12/18 09/13/18 09/13/18 18:59 06:59 18:59 Intake Total 1820 / 1820 2260 / 2260 517.5 / 517.5 Output Total 1075 / 1075 730 / 730 Balance 745 / 745 1530 / 1530 517.5 / 517.5 Weight 105.3 kg Intake: IV 1400 / 1400 1660 / 1660 517.5 / 517.5 D5W Inj 1,000 ML @ 84 mls/hr IV 1000 / 1000 1000 / 1000 .CONT .[id number] [facility] Rx#:[id number] Zosyn 4.5 GM Premix 4.5 gm In 200 / 200 200 / 200 100 ml @ 200 mls/hr IV.SIG Q6H [facility] Rx#:[id number] Potassium Phosphate Inj 30 MMOL 260 / 260 In NS Inj 250 ML @ 42 mls/hr IV.SIG UNSCH PRN Rx#:[id number] Vancomycin Inj 1,750 MG In NS 517.5 / 517.5 Inj 500 ML @ 250 mls/hr IV.SIG Q24H [facility] Rx#:[id number] Flagyl 500 MG Inj 100 ML @ 100 200 / 200 200 / 200 mls/hr IV.SIG Q6H [facility] Rx#: [id number] Oral 420 / 420 600 / 600 Output: Urine 100 / 100 400 / 400 Urine Amount (Catheter) 850 / 850 Indwelling Urethral Catheter 850 / 850 Wound Drainage 125 / 125 330 / 330 # 1 Left Lower Abdomen 125 / 125 330 / 330 Other: # Voids 1 Date of Last Bowel Movement 09/12/18 09/12/18 # Bowel Movements 1 0 Weight On Admission 105.8 kg Lab - Hematology Results 09/12/18 09/13/18 04:51 01:41 WBC 14.0 H 13.0 H RBC 3.33 L 3.04 L Hgb 10.5 L 9.7 L Hct 31.7 L 28.6 L MCV 95.2 94.1 MCH 31.5 31.7 MCHC 33.1 33.7 RDW 15.8 15.6 Plt Count 203 182 MPV 9.5 9.4 Lab - Chemistry Results 09/11/18 09/11/18 09/12/18 11:23 17:19 04:51 Sodium 144 144 Potassium 3.1 L 3.0 L Chloride 109 H 109 H Carbon Dioxide 27.7 26.3 Anion Gap 7 9 BUN 23 H 20 H Creatinine 1.06 0.98 Estimated GFR 67 L 73 L Random Glucose 174 H 136 H Calcium 8.6 8.4 L Phosphorus 1.7 L Magnesium Total Bilirubin 0.7 0.7 AST 34 30 ALT 33 31 Alkaline Phosphatase 70 66 Total Protein 5.2 L 5.1 L Albumin 1.6 L 1.5 L 09/13/18 01:41 Sodium 145 Potassium 2.9 L* Chloride 106 Carbon Dioxide 31.4 Anion Gap 8 BUN 21 H Creatinine 1.01 Estimated GFR 71 L Random Glucose 144 H Calcium 8.1 L Phosphorus 3.1 D Magnesium 1.8 Total Bilirubin AST ALT Alkaline Phosphatase Total Protein Albumin Imaging: ITS Impressions Abdomen/Bladder Ultrasound 08/25/18 00:00 CONCLUSION: 1. No evidence of hydronephrosis. 2. Bilateral renal cysts, mostly simple, with one cyst demonstrating homogeneous low level echoes, located in the midpole the left kidney and measuring 4 cm. Venous Doppler Study 08/25/18 00:00 CONCLUSION: 1. The study is negative for bilateral lower extremity deep venous thrombosis. Chest CT 09/05/18 00:00 CONCLUSION: 1. 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 2. Right lower lobe cavitary mass. 3. Probably benign left adrenal lesion Head CT 09/05/18 00:00 CONCLUSION: 1. No acute intracranial abnormalities. . Abdomen/Pelvis CT 09/07/18 00:00 CONCLUSION: 1. Status post recent abdominal surgery with free air throughout the abdomen. 2. Mild air-filled loops of small bowel suggestive of a postoperative ileus. 3. Otherwise no other significant changes are seen compared to the prior exam. Chest X-Ray 09/11/18 00:00 CONCLUSION: Slight improvement in the bilateral infiltrates. Physical Exam: PHYSICAL EXAMINATION: GENERAL: Patient is awake and alert. NAD HEENT: Head is atraumatic. No icterus. Moist mucosa Dry crusted lesions at the upper and lower lip. NECK: Supple without adenopathy. LUNGS: Coarse BS bilaterally HEART: Irregular S1, S2. No murmur audible. ABDOMEN: Obese, soft. Incision dry, no redness. Drainage bag on LLQ with serous fluid EXTREMITIES: No clubbing, cyanosis, 1+ nonpitting edema at the feet. SKIN: No rash. NEUROLOGIC: No gross focal finding. PSYCHIATRIC: Calm and cooperative. Assessment and Plan - Plan IMPRESSION: Perforated viscus. Status post right hemicolectomy. Pneumonia. Probable community-acquired. Possible cause of blood culture positive with Haemophilus. Cavitary nodule noted in the right lower lung. ? Etiology. 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 Chest x-ray has diffuse bilateral infiltrates. Altered mental status. Improved. Leukocytosis. Improving. Herpetic lip ulcerations dried and crusted. Clinically looks stable. RECOMMENDATIONS: Continue Zosyn for pneumonia. Continue vancomycin. Stop Flagyl. Continue fluconazole Continue topical acyclovir. Follow CBC Monitor progress Spoke with
[2018-09-13] MEDS: Pantoprazole Inj 40 MG Vial IV.PUSH SCH (11:02)
--- NOTE | 2018-09-13 12:37 | P.PNIM ---
Subjective Interval history: This is an 83-year-old male. Date of admission 08/25/2018. Past medical includes atrial fibrillation with history of cardioversion, chronic apixaban use, hypertension, hyperlipidemia, trigeminal neuralgia/hard of hearing : Bilateral hearing aids. For the past 4 days, patient been increasing short of breath increased malaise. Denies any sick contacts or recent travels. Unknown influenza status. Patient is to [facility] with worsening shortness of breath. Complains of pleuritic and musculoskeletal chest pain. Patient also has a prior history of tobacco abuse times 50 years quit 15 years ago. Patient called EMS for evaluation due to acute shortness of breath. Upon arrival, patient was noted to be in a rapid heart rate in the 150s. Patient was given acute bronchodilator therapy and started on a lidocaine drip for possible V. tach. Patient was transported to [facility] for further evaluation treatment. Upon arrival, patient was noted to be in A. fib with RVR. Chest x-ray revealed bilateral infiltrates right greater than left. Patient was placed on BiPAP therapy with some improvement. Patient received ceftriaxone and azithromycin. 3 L normal saline. Patient remained somewhat hypotensive. Patient a lactate of 5.1. Troponin 0 0.27. Patient was transported to [facility]. On arrival, patient increasingly short of breath. Required intubation with central line placement and arterial line placement. SUBJECTIVE: 08/26: Currently resting in bed intubated requiring mechanical ventilation. Arousable and does follow commands but heart rate much better controlled rate. No acute findings overnight. Leukocytosis slightly worsened. Potassium replaced currently. Arousable and does follow commands. at bedside and updated Wilma. 08/27: Patient on low-dose (2 mcg) levo overnight, off since this morning. Low urine output over the past 24 hours. HR well-controlled in 70s-80s. 08/28: Patient tolerated PST yesterday afternoon, placed back on AC overnight to rest. Urine output improved with lasix/ Chavez was noted to be clogged with sediment and replaced. No new issues. 08/29: Extubated yesterday, on bipap through the afternoon/ evening (patient is on nocturnal CPAP at home). BP persistently elevated, now on cardene gtt. 08/30: On BiPAP overnight. Currently on facemask O2. Sitting up in chair, not in any acute distress. 08/31: Critical care reconsulted this morning due to free air noted under the diaphragm on routine chest x-ray. When I evaluated the patient he was resting in bed on nasal cannula. No hypotension overnight. He did have a BM yesterday he has been having vague abdominal discomfort. He appears more lethargic and delirious yesterday according to his . Patient was drowsy but easily arousable however appeared encephalopathic. He did not appear to be in any acute distress however on examination of his abdomen did grimace some guarding. He did receive Eliquis this morning. On review of CT done on 09/05 patient appears to have free intraperitoneal air. This was discussed with Dr. Richards. Plan was made for exploratory laparotomy Maurice. I did order K Centra for Eliquis reversal per discussion with Dr. Richards. Also spoke with patient's regarding concern regarding perforated viscus and need for emergency surgery she voiced understanding. Patient is on Unasyn and being followed by ID. Ordered normal saline IV fluids and made patient n.p.o. 09/07: Extubated yesterday but breathing a little labored this morning. Respiratory rate around 30 with some accessory muscle use. Lung joel generally clear with a few scattered rhonchi on the right side. No wheezing. No crackles. We tried BiPAP noninvasive ventilation and he was much more comfortable and promptly went to sleep. Although gas exchange is acceptable his work of breathing is clearly excessive without support. 09/08: Extubated 48 hours ago. Comfortable on BiPAP noninvasive ventilation but labored when off. Fluid balance not particularly problematic, but most of respiratory difficulty appears to be the mobilization of secretions. 09/09: Resting comfortably on nasal cannula. NG tube clamped this morning. 09/10 TRANSFERRED TO OUR CARE TODAY -Patient is awake and alert today. Still with profound weakness. He has no complaints. Discussed with RN. Hypokalemic. Hyponatremia is worse today. 09/11 Interval history: Patient is more alert today. He states he is feeling better. He was able to eat by himself. He is feeling a little stronger. 09/12 Interval history: Patient reports he is feeling stronger today. He is hoping to get strong enough to [place]. No increase in shortness of breath. Stable on nasal cannula. Using BiPAP at night. 09/13 TRANSFERRED OUT OF ICU WILL PROBABLY NEED LOCAL REHAB HYPOKALEMIA WILL REPLACE AM LABS DW RN AND PT AND FAMILY AND CAM Physical Exam Vital signs: Vital Signs 09/12/18 13:00 09/12/18 13:17 09/12/18 14:00 Temperature Pulse Rate 95 H 100 H 94 H Respiratory Rate 21 20 23 Blood Pressure 117/72 Pulse Oximetry 99 97 92 L 09/12/18 14:17 09/12/18 15:00 09/12/18 15:27 Temperature Pulse Rate 89 94 H 102 H Respiratory Rate 22 24 24 Blood Pressure 119/76 Pulse Oximetry 96 98 09/12/18 16:00 09/12/18 16:17 09/12/18 17:00 Temperature 98.7 F 98.8 F Pulse Rate 96 H 97 H 92 H Respiratory Rate 20 23 17 Blood Pressure 128/71 128/71 134/69 Pulse Oximetry 97 97 97 09/12/18 17:17 09/12/18 18:00 09/12/18 18:17 Temperature 98.0 F Pulse Rate 92 H 90 91 H Respiratory Rate 18 19 12 Blood Pressure 134/69 116/70 Pulse Oximetry 94 L 96 92 L 09/12/18 20:00 09/12/18 20:20 09/12/18 22:55 Temperature 97.6 F 97.1 F L Pulse Rate 94 H 86 91 H Respiratory Rate 14 15 Blood Pressure 130/77 125/78 Pulse Oximetry 98 99 09/12/18 23:53 09/13/18 00:00 09/13/18 04:00 Temperature 97.3 F L 97.2 F L Pulse Rate 98 H 94 H Respiratory Rate 18 18 Blood Pressure 119/74 120/64 Pulse Oximetry 98 99 98 09/13/18 08:00 09/13/18 08:17 Temperature 97.4 F L Pulse Rate 90 89 Respiratory Rate 18 18 Blood Pressure 107/69 Pulse Oximetry 93 L 95 Intake & Output 09/12/18 09/13/18 09/13/18 18:59 06:59 18:59 Intake Total 1820 / 1820 2260 / 2260 717.5 / 717.5 Output Total 1075 / 1075 730 / 730 Balance 745 / 745 1530 / 1530 717.5 / 717.5 Weight 105.3 kg Intake: IV 1400 / 1400 1660 / 1660 717.5 / 717.5 D5W Inj 1,000 ML @ 84 mls/hr IV 1000 / 1000 1000 / 1000 .CONT .[id number] [facility] Rx#:[id number] Zosyn 4.5 GM Premix 4.5 gm In 200 / 200 200 / 200 100 / 100 100 ml @ 200 mls/hr IV.SIG Q6H BRIANNA Rx#:[id number] Potassium Phosphate Inj 30 MMOL 260 / 260 In NS Inj 250 ML @ 42 mls/hr IV.SIG UNSCH PRN Rx#:[id number] Vancomycin Inj 1,750 MG In NS 517.5 / 517.5 Inj 500 ML @ 250 mls/hr IV.SIG Q24H BRIANNA Rx#:[id number] Flagyl 500 MG Inj 100 ML @ 100 200 / 200 200 / 200 100 / 100 mls/hr IV.SIG Q6H BRIANNA Rx#: [id number] Oral 420 / 420 600 / 600 Output: Urine 100 / 100 400 / 400 Urine Amount (Catheter) 850 / 850 Indwelling Urethral Catheter 850 / 850 Wound Drainage 125 / 125 330 / 330 # 1 Left Lower Abdomen 125 / 125 330 / 330 Other: # Voids 1 Date of Last Bowel Movement 09/12/18 09/12/18 # Bowel Movements 1 0 Weight On Admission 105.8 kg Narrative: GENERAL: Elderly obese male sitting up in bed. CARDIOVASCULAR: Regular rate and rhythm. RESPIRATORY: No accessory muscle use. air movement is fair. crackles at the bases bilaterally. GASTROINTESTINAL: Abdomen soft, nondistended. Dressing in place. Appropriately tender around the surgical site. MUSCULOSKELETAL: Extremities without clubbing, cyanosis,but has 2 + edema. NEUROLOGICAL: Generalized weakness. Overall improving. - Urinary Catheter Management Indwelling Temp Sensing Catheter Cath placed during this visit: yes, but has since been removed by the nurse Reason for continuing: Decision to DC catheter Insertion date: 08/25/18 Insertion time: 14:20 Removal date: 08/29/18 Removal time: 12:30 Indwelling Urethral Catheter Cath placed during this visit: yes Urethral indwelling: No Reason for continuing: Hourly intake/output Insertion date: 09/06/18 Insertion time: 12:00 Results - Labs CBC & Chem 7: 09/13/18 01:41 09/13/18 01:41 Laboratory Results - last 24 hr 09/12/18 09/13/18 09/13/18 16:00 01:41 01:41 WBC 13.0 H RBC 3.04 L Hgb 9.7 L Hct 28.6 L MCV 94.1 MCH 31.7 MCHC 33.7 RDW 15.6 Plt Count 182 MPV 9.4 Sodium 145 Potassium 2.9 L* Chloride 106 Carbon Dioxide 31.4 Anion Gap 8 BUN 21 H Creatinine 1.01 Estimated GFR 71 L Random Glucose 144 H Calcium 8.1 L Phosphorus 3.1 D Magnesium 1.8 Marisa-Renal Creatinine 1.018 Vancomycin Trough 22.9 H - Imaging ITS Impressions Abdomen/Bladder Ultrasound 08/25/18 00:00 CONCLUSION: 1. No evidence of hydronephrosis. 2. Bilateral renal cysts, mostly simple, with one cyst demonstrating homogeneous low level echoes, located in the midpole the left kidney and measuring 4 cm. Venous Doppler Study 08/25/18 00:00 CONCLUSION: 1. The study is negative for bilateral lower extremity deep venous thrombosis. Chest CT 09/05/18 00:00 CONCLUSION: 1. 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 2. Right lower lobe cavitary mass. 3. Probably benign left adrenal lesion Head CT 09/05/18 00:00 CONCLUSION: 1. No acute intracranial abnormalities. . Abdomen/Pelvis CT 09/07/18 00:00 CONCLUSION: 1. Status post recent abdominal surgery with free air throughout the abdomen. 2. Mild air-filled loops of small bowel suggestive of a postoperative ileus. 3. Otherwise no other significant changes are seen compared to the prior exam. Chest X-Ray 09/11/18 00:00 CONCLUSION: Slight improvement in the bilateral infiltrates. - Procedures Date of procedure: 08/25/18 Pre-op diagnosis: Acute respiratory failure Post-op diagnosis: same Procedure: DATE: 08/25/2018 PROCEDURE: Orotracheal intubation INDICATION: Pneumonia/respiratory failure acute DETAILS OF PROCEDURE The patient was placed in optimal position and preoxygenated with 100% FiO2 via bag valve mask. At the start oxygen saturation was 98 %. The patient was administered 20 mg etomidate IV and 50 mg rocuronium IV. I entered the oropharynx with a size 4 laryngoscope blade and obtained a grade 2 view of the airway. On single attempt a size 8.0 cuffed endotracheal tube was passed through the vocal cords. Correct tube location was confirmed with end tidal CO2 detector and by auscultating over bilateral lung joel. The endotracheal tube was secured with adhesive tape at a depth of 24 cm at the lips. The patient was connected to the ventilator. The patient tolerated the procedure well without any apparent complications. Oxygen saturations were maintained greater than 95% all times. STAT chest x-ray pending at time of dictation. Documented By: Ford Miguel MD 08/25/18 Date of procedure: 08/25/18 Pre-op diagnosis: Acute respiratory failure/poor IV access Post-op diagnosis: same Procedure: DATE: 08/25/2018 CENTRAL LINE PLACEMENT: Left internal jugular vein. Ultrasound-guided INDICATION: Central venous access CONSENT Informed consent for procedure was obtained from competent patient prior to intubation. DESCRIPTION OF THE PROCEDURE The patient was placed in supine position. The skin was cleansed with Chloraprep. Additional barrier precautions included large sterile drape, sterile gloves, sterile gown, face mask, and hat. 1 % lidocaine was used for local anesthesia. Under direct ultrasound guidance and on initial attempt, the vein was accessed with an introducer needle. The guide wire was advanced and the tract was dilated. Using Seldinger technique a 7 [place] 20 cm antimicrobial coated triple-lumen catheter was advanced to a depth of 20 centimeters. The guide wire was removed. All ports had good return of dark venous blood and flushed easily with saline. The central line was secured with 2.0 silk. A sterile dressing with antibiotic disc was applied. StatLock did not adhere to skin ESTIMATED BLOOD LOSS: Minimal COMPLICATIONS: No apparent complications. STAT chest x-ray pending at time of dictation Documented By: Ford Miguel MD Date of procedure: 08/25/18 Pre-op diagnosis: Hemodynamic instability Post-op diagnosis: same Procedure: DATE: 08/25/2018 PROCEDURE: Right femoral arterial catheter placement INDICATION: Hemodynamic access DETAILS OF PROCEDURE The patient was placed in supine position. The skin was cleansed with Chloraprep. Additional barrier precautions included large sterile drape, sterile gloves, sterile gown, face mask, and hat. 1% lidocaine was used for local anesthesia. Under direct ultrasound guidance and on the initial attempt, the artery was accessed with an introducer needle. The guide wire was advanced. Using Seldinger technique 20 gauge arterial catheter was placed. The guide wire was removed. The catheter was connected to a transducer line and flushed with saline. The video monitor displayed normal arterial wave forms. The catheter was secured with 2-0 silk. A sterile dressing with antibiotic disc was applied. ESTIMATED BLOOD LOSS: minimal COMPLICATIONS: None Documented By: Ford Miguel MD DATE OF OPERATION: 09/06/2018 PREOPERATIVE DIAGNOSIS: Perforation of viscus. POSTOPERATIVE DIAGNOSIS: Perforation of viscus, microperforation of cecum with cecal volvulus. PROCEDURE PERFORMED: 1. Diagnostic laparoscopy. 2. Open exploratory laparotomy. 3. Right hemicolectomy. 4. Primary anastomosis. 5. TANG placement. 6. Washout. SURGEON: Lul Richards MD AUTO TRANSMISSION TECHNICIAN: Theresa. ANESTHESIA: GETA. IV FLUIDS: See anesthesia sheet. ESTIMATED BLOOD LOSS: 100 mL. DRAINS: A 19-South Korean Justin drain. COMPLICATIONS: None. WOUND CLASSIFICATION: Contaminated. FINDINGS: Serous intraperitoneal fluid, massive free air, microperforation of cecum with cecal volvulus. SPECIMENS: Right colon. HISTORY OF PRESENT ILLNESS: The patient is an 83-year-old male who presented with multiple medical issues, lung dysfunction and development of a perforation of viscus. The patient planned for emergency operative intervention. DETAILS OF PROCEDURE: The patient was taken to the operative suite, placed in a supine position. She was prepped and draped in the usual sterile fashion after induction of general endotracheal anesthesia. Local anesthetic was injected. Stab doug incision was made. Abdomen is entered with a 5 mm port. Three other ports were placed, including 1 right upper quadrant, 1 right lower quadrant and a left upper quadrant port, 5 mm. Exploration had begun and there was noted to be some serosanguineous fluid throughout the abdomen. This was not overly purulent or did not appear to be significantly succuss. The suction irrigation was done. The examination of the stomach noted no abnormality and noted to be viable and healthy. The small bowel was run from ligament of Treitz to the terminal ileum without evidence of abnormality. The colon was then examined. There was noted to be a volvulus of cecum with a small microperforation and a small necrotic area. At this point, decision was made for an open exploratory laparotomy. The midline was extended with a 15 blade. Further dissection done with electro Bovie electrocautery. Bookwalter retractor was placed. Glen wound protector was also placed. Self-retaining retractors were placed for abdominal exposure. The white line of Toldt was mobilized to mobilize for the cecum, ileocecal valve and terminal ileum. Proximal to the ileocecal valve a 5 cm, a point was transected with a blue DB stapler. Harmonic was used to transect the base of the mesentery and for hemostasis. Proximally, the colon was mobilized. The hepatic flexure was further mobilized as well and the colon was transected proximal to the area of torsion and perforation. Further dissection and ligation of vessels was done with Harmonic scalpel. The colonic specimen, right hemicolon, was removed and placed in pathology. The abdomen was then thoroughly irrigated with warm normal saline. The patient was noted not to be on any pressor support and very stable at the time and had received no transfusion, other than the Kcentra for coagulant Eliquis reversal. The decision at this point was to do primary anastomosis. This was done in a stapled manner. The antimesenteric border and the tinea were placed opposing each other; 3-0 silk sutures were used for this. Small enterotomies were made in both opposing ends and an DB-75 blue load stapler was used to create a [id number] layer. The incisions were grasped with Allis clamps and then a TX 60 was used to transect and staple this closure. The staple line was oversewn with 3-0 silk Lembert sutures. Mesenteric defect was also closed. A crotch stitch was placed. A palpable patent ring was noted and completely viable. The abdomen was again washed out with a liter of warm saline. Omentum was placed back in its anatomical position. A 19-South Korean Justin drain was placed through a separate stab incision in the left lower quadrant and placed in the pelvis and along the right gutter. The abdomen was closed with looped PDS x 2 in a running fashion followed by misha and a TANG dressing was placed. 2-0 nylon used to secure 19-South Korean Justin drain in place. The patient tolerated the procedure well. There were no intraoperative complications. All lap and instrument counts were correct at the end of the procedure. The patient was taken to ICU in critical condition. Lul Richards MD (1) Perforated abdominal viscus (2) Cecal volvulus - Postoperative Diagnosis (1) Perforated abdominal viscus Procedure: dx lap,ex lap right hemicolectomy, primary anastomsis, tang Surgeon: Lul Richards MD Estimated blood loss (mL): 15 Pathology: none sent Operation and Findings: free air Documented By: Lul Richards MD 09/06/18 1158 Assessment and Plan - Assessment (1) COPD (chronic obstructive pulmonary disease) Code(s): J44.9 - Chronic obstructive pulmonary disease, unspecified Status: Acute (2) Severe sepsis Code(s): A41.9 - Sepsis, unspecified organism; R65.20 - Severe sepsis without septic shock Status: Acute (3) Pneumonia Code(s): J18.9 - Pneumonia, unspecified organism Status: Acute (4) Acute respiratory failure with hypoxia and hypercapnia Code(s): J96.01 - Acute respiratory failure with hypoxia; J96.02 - Acute respiratory failure with hypercapnia Status: Acute (5) Lactic acidosis Code(s): E87.2 - Acidosis Status: Acute (6) Atrial fibrillation with rapid ventricular response Code(s): I48.91 - Unspecified atrial fibrillation Status: Acute (7) Acute kidney injury Code(s): N17.9 - Acute kidney failure, unspecified Status: Acute (8) Chronic steroid use Status: Chronic (9) Hypertension Code(s): I10 - Essential (primary) hypertension Status: Chronic (10) Pulmonary cavitary lesion Code(s): J98.4 - Other disorders of lung Status: Acute (11) Status post colectomy Code(s): Z90.49 - Acquired absence of other specified parts of digestive tract Status: Acute (12) Atelectasis of both lungs Code(s): J98.11 - Atelectasis Status: Acute - Plan 83 Y/O male with acute respiratory failure secondary to pneumonia. His ICU course is somewhat prolonged. Has had issues with agitation at night and not wearing bipap. Pneumonia is persisting. His antibiotics were changed. He is showing some improvement. Pulmonology following. Continue to treat pneumonia per ID. He is very deconditioned and will likely need rehab. His 's goal [place]. Other active issues include hypernatremia and sundowning. 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 Continue rehabilitation efforts. Transfer to medical floor. Community acquired pneumonia Perforated viscus Blood cultures from 08/25 grew Haemophilus influenza sensitive to penicillins/ cephalosporins, s/p ceftriaxone Repeat blood cultures sent on 08/27 negative thus far Sputum and urine cultures no growth to date Flu and MRSA swabs negative Legionella and pneumococcus negative ID following for antibiotic management. 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 NG tube discontinued, diet advanced to liquid diet per general surgery. Pantoprazole for GI prophylaxis Docusate sodium/senna 1 tablet twice daily for bowel regimen General surgery following. Tang dressing and drain in place. WESLEY, resolved Hypernatremia Hypokalemia BID lasix dosing, hold No urine eosinophils noted Renal ultrasound - bilateral renal cyst. Possible hemorrhagic left renal cyst Avoid nephrotoxic medication Monitor urine output Accurate I's and O's Nephrology following. Hypernatremia resolving. On D5W per nephrology. Follow-up BMP in a.m. Potassium replacement. Check mag Atrial fibrillation with rapid ventricular response currently rate controlled Elevated troponin History of essential hypertension Hyperlipidemia Lactic acidosis Trop 0.27 on admission, most recent 0.08, no longer trending Echo: EF 45%, RV enlargement/ dysfunction, PAP 38 mm Hg Continue beta-tristian Eliquis restarted. Hypokalemia - Check mag HYPOKALEMIA WILL REPLACE AGAIN Delirium: Likely related to medical conditions and ICU: Much improved. He is sleeping better and is more appropriate. -Delirium precautions (lights on/ shades up during the day, limit nighttime disruptions, frequent reorientation, use hearing aids) Prophylaxis -GI -pantoprazole -DVT -SCD/apixaban Patient is overall improving. Transfer to medical floor. Continue rehab efforts. [place] She is looking into [facility]. Code Status: FULL CODE Discussed Condition With: RN AND PT AND CM AND FAMILY Discharge Planning: WILL NEED [facility] OR POSSIBLE TRANSFER TO ANOTHER [place]OSP[place] (3) Pneumonia Qualifiers: Pneumonia type: due to unspecified organism Laterality: bilateral Lung location: unspecified part of lung Qualified Code(s): J18.9 - Pneumonia, unspecified organism (9) Hypertension Qualifiers: Hypertension type: essential hypertension Qualified Code(s): I10 - Essential (primary) hypertension
--- NOTE | 2018-09-13 13:40 | P.PNGS ---
Subjective Patient reports: feels better, flatus, bowel movement Physical Exam Vital signs: Vital Signs 09/12/18 14:00 09/12/18 14:17 09/12/18 15:00 Temperature Pulse Rate 94 H 89 94 H Respiratory Rate 23 22 24 Blood Pressure 119/76 Pulse Oximetry 92 L 96 98 09/12/18 15:27 09/12/18 16:00 09/12/18 16:17 Temperature 98.7 F Pulse Rate 102 H 96 H 97 H Respiratory Rate 24 20 23 Blood Pressure 128/71 128/71 Pulse Oximetry 97 97 09/12/18 17:00 09/12/18 17:17 09/12/18 18:00 Temperature 98.8 F 98.0 F Pulse Rate 92 H 92 H 90 Respiratory Rate 17 18 19 Blood Pressure 134/69 134/69 Pulse Oximetry 97 94 L 96 09/12/18 18:17 09/12/18 20:00 09/12/18 20:20 Temperature 97.6 F Pulse Rate 91 H 94 H 86 Respiratory Rate 12 14 15 Blood Pressure 116/70 130/77 Pulse Oximetry 92 L 98 09/12/18 22:55 09/12/18 23:53 09/13/18 00:00 Temperature 97.1 F L 97.3 F L Pulse Rate 91 H 98 H Respiratory Rate 18 Blood Pressure 125/78 119/74 Pulse Oximetry 99 98 99 09/13/18 04:00 09/13/18 08:00 09/13/18 08:17 Temperature 97.2 F L 97.4 F L Pulse Rate 94 H 90 89 Respiratory Rate 18 18 18 Blood Pressure 120/64 107/69 Pulse Oximetry 98 93 L 95 09/13/18 12:00 Temperature 97.4 F L Pulse Rate 103 H Respiratory Rate 20 Blood Pressure 116/77 Pulse Oximetry 93 L Intake & Output 09/12/18 09/13/18 09/13/18 18:59 06:59 18:59 Intake Total 1820 / 1820 2260 / 2260 717.5 / 717.5 Output Total 1075 / 1075 730 / 730 Balance 745 / 745 1530 / 1530 717.5 / 717.5 Weight 105.3 kg Intake: IV 1400 / 1400 1660 / 1660 717.5 / 717.5 D5W Inj 1,000 ML @ 84 mls/hr IV 1000 / 1000 1000 / 1000 .CONT .[id number] [facility] Rx#:[id number] Zosyn 4.5 GM Premix 4.5 gm In 200 / 200 200 / 200 100 / 100 100 ml @ 200 mls/hr IV.SIG Q6H [facility] Rx#:[id number] Potassium Phosphate Inj 30 MMOL 260 / 260 In NS Inj 250 ML @ 42 mls/hr IV.SIG UNSCH PRN Rx#:[id number] Vancomycin Inj 1,750 MG In NS 517.5 / 517.5 Inj 500 ML @ 250 mls/hr IV.SIG Q24H [facility] Rx#:[id number] Flagyl 500 MG Inj 100 ML @ 100 200 / 200 200 / 200 100 / 100 mls/hr IV.SIG Q6H [facility] Rx#: [id number] Oral 420 / 420 600 / 600 Output: Urine 100 / 100 400 / 400 Urine Amount (Catheter) 850 / 850 Indwelling Urethral Catheter 850 / 850 Wound Drainage 125 / 125 330 / 330 # 1 Left Lower Abdomen 125 / 125 330 / 330 Other: # Voids 1 Date of Last Bowel Movement 09/12/18 09/12/18 # Bowel Movements 1 0 Weight On Admission 105.8 kg - Routine Abdominal Exam Present: soft (incision healing, james serous, ) - Urinary Catheter Management Indwelling Temp Sensing Catheter Cath placed during this visit: yes, but has since been removed by the nurse Reason for continuing: Decision to DC catheter Insertion date: 08/25/18 Insertion time: 14:20 Removal date: 08/29/18 Removal time: 12:30 Indwelling Urethral Catheter Cath placed during this visit: yes Urethral indwelling: No Reason for continuing: Hourly intake/output Insertion date: 09/06/18 Insertion time: 12:00 Results - Labs 09/13/18 01:41 09/13/18 01:41 Laboratory Results - last 24 hr 09/12/18 09/13/18 09/13/18 16:00 01:41 01:41 WBC 13.0 H RBC 3.04 L Hgb 9.7 L Hct 28.6 L MCV 94.1 MCH 31.7 MCHC 33.7 RDW 15.6 Plt Count 182 MPV 9.4 Sodium 145 Potassium 2.9 L* Chloride 106 Carbon Dioxide 31.4 Anion Gap 8 BUN 21 H Creatinine 1.01 Estimated GFR 71 L Random Glucose 144 H Calcium 8.1 L Phosphorus 3.1 D Magnesium 1.8 Marisa-Renal Creatinine 1.018 Vancomycin Trough 22.9 H - Imaging Imaging: ITS Impressions Abdomen/Bladder Ultrasound 08/25/18 00:00 CONCLUSION: 1. No evidence of hydronephrosis. 2. Bilateral renal cysts, mostly simple, with one cyst demonstrating homogeneous low level echoes, located in the midpole the left kidney and measuring 4 cm. Venous Doppler Study 08/25/18 00:00 CONCLUSION: 1. The study is negative for bilateral lower extremity deep venous thrombosis. Chest CT 09/05/18 00:00 CONCLUSION: 1. 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 2. Right lower lobe cavitary mass. 3. Probably benign left adrenal lesion Head CT 09/05/18 00:00 CONCLUSION: 1. No acute intracranial abnormalities. . Abdomen/Pelvis CT 09/07/18 00:00 CONCLUSION: 1. Status post recent abdominal surgery with free air throughout the abdomen. 2. Mild air-filled loops of small bowel suggestive of a postoperative ileus. 3. Otherwise no other significant changes are seen compared to the prior exam. Chest X-Ray 09/11/18 00:00 CONCLUSION: Slight improvement in the bilateral infiltrates. 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 PT to ambulate blood thinner james sxn- follow output pt appears stable for medievac transport from surgical stand point
--- NOTE | 2018-09-13 18:10 | P.PN ---
Subjective Interval history: Alert and stable on O2 2 L N/C . No cough but has some wheezing. On IV antibiotics . Abdominal wound healing Physical Exam Vital signs: Vital Signs 09/12/18 18:17 09/12/18 20:00 09/12/18 20:20 Temperature 97.6 F Pulse Rate 91 H 94 H 86 Respiratory Rate 12 14 15 Blood Pressure 116/70 130/77 Pulse Oximetry 92 L 98 09/12/18 22:55 09/12/18 23:53 09/13/18 00:00 Temperature 97.1 F L 97.3 F L Pulse Rate 91 H 98 H Respiratory Rate 18 Blood Pressure 125/78 119/74 Pulse Oximetry 99 98 99 09/13/18 04:00 09/13/18 08:00 09/13/18 08:17 Temperature 97.2 F L 97.4 F L Pulse Rate 94 H 90 89 Respiratory Rate 18 18 18 Blood Pressure 120/64 107/69 Pulse Oximetry 98 93 L 95 09/13/18 12:00 09/13/18 16:00 Temperature 97.4 F L 97.5 F L Pulse Rate 103 H 87 Respiratory Rate 20 20 Blood Pressure 116/77 138/60 Pulse Oximetry 93 L 94 L Intake & Output 09/12/18 09/13/18 09/13/18 18:59 06:59 18:59 Intake Total 1820 / 1820 2260 / 2260 917.5 / 917.5 Output Total 1075 / 1075 730 / 730 Balance 745 / 745 1530 / 1530 917.5 / 917.5 Weight 105.3 kg Intake: IV 1400 / 1400 1660 / 1660 917.5 / 917.5 D5W Inj 1,000 ML @ 84 mls/hr IV 1000 / 1000 1000 / 1000 .CONT .[id number] [facility] Rx#:[id number] Zosyn 4.5 GM Premix 4.5 gm In 200 / 200 200 / 200 200 / 200 100 ml @ 200 mls/hr IV.SIG Q6H [facility] Rx#:[id number] KCl 40 mEq Premix Inj 40 meq In 100 / 100 100 ml @ 25 mls/hr IV.SIG ONCE ONE Rx#:[id number] Potassium Phosphate Inj 30 MMOL 260 / 260 In NS Inj 250 ML @ 42 mls/hr IV.SIG UNSCH PRN Rx#:[id number] Vancomycin Inj 1,750 MG In NS 517.5 / 517.5 Inj 500 ML @ 250 mls/hr IV.SIG Q24H [facility] Rx#:[id number] Flagyl 500 MG Inj 100 ML @ 100 200 / 200 200 / 200 100 / 100 mls/hr IV.SIG Q6H [facility] Rx#: [id number] Oral 420 / 420 600 / 600 Output: Urine 100 / 100 400 / 400 Urine Amount (Catheter) 850 / 850 Indwelling Urethral Catheter 850 / 850 Wound Drainage 125 / 125 330 / 330 # 1 Left Lower Abdomen 125 / 125 330 / 330 Other: # Voids 1 Date of Last Bowel Movement 09/12/18 09/12/18 # Bowel Movements 1 0 Weight On Admission 105.8 kg Narrative: GENERAL: Elderly obese male alert NAD CARDIOVASCULAR: Regular rate and rhythm. RESPIRATORY: No accessory muscle use. air movement is fair. crackles at the bases bilaterally. GASTROINTESTINAL: Abdomen soft, nondistended. Dressing in place. tender around the surgical site. MUSCULOSKELETAL: Extremities without clubbing, cyanosis,but has 2 + edema. NEUROLOGICAL: Generalized weakness. moving legs better. Overall improving. - Urinary Catheter Management Indwelling Temp Sensing Catheter Cath placed during this visit: yes, but has since been removed by the nurse Reason for continuing: Decision to DC catheter Insertion date: 08/25/18 Insertion time: 14:20 Removal date: 08/29/18 Removal time: 12:30 Indwelling Urethral Catheter Cath placed during this visit: yes Urethral indwelling: No Reason for continuing: Hourly intake/output Insertion date: 09/06/18 Insertion time: 12:00 Results - Labs CBC & Chem 7: 09/13/18 01:41 09/13/18 01:41 Laboratory Results - last 24 hr 09/12/18 09/13/18 09/13/18 16:00 01:41 01:41 WBC 13.0 H RBC 3.04 L Hgb 9.7 L Hct 28.6 L MCV 94.1 MCH 31.7 MCHC 33.7 RDW 15.6 Plt Count 182 MPV 9.4 Sodium 145 Potassium 2.9 L* Chloride 106 Carbon Dioxide 31.4 Anion Gap 8 BUN 21 H Creatinine 1.01 Estimated GFR 71 L Random Glucose 144 H Calcium 8.1 L Phosphorus 3.1 D Magnesium 1.8 Marisa-Renal Creatinine 1.018 Vancomycin Trough 22.9 H - Procedures Date of procedure: 08/25/18 Pre-op diagnosis: Acute respiratory failure Post-op diagnosis: same Procedure: DATE: 08/25/2018 PROCEDURE: Orotracheal intubation INDICATION: Pneumonia/respiratory failure acute DETAILS OF PROCEDURE The patient was placed in optimal position and preoxygenated with 100% FiO2 via bag valve mask. At the start oxygen saturation was 98 %. The patient was administered 20 mg etomidate IV and 50 mg rocuronium IV. I entered the oropharynx with a size 4 laryngoscope blade and obtained a grade 2 view of the airway. On single attempt a size 8.0 cuffed endotracheal tube was passed through the vocal cords. Correct tube location was confirmed with end tidal CO2 detector and by auscultating over bilateral lung joel. The endotracheal tube was secured with adhesive tape at a depth of 24 cm at the lips. The patient was connected to the ventilator. The patient tolerated the procedure well without any apparent complications. Oxygen saturations were maintained greater than 95% all times. STAT chest x-ray pending at time of dictation. Documented By: Ford Miguel MD 08/25/18 Date of procedure: 08/25/18 Pre-op diagnosis: Acute respiratory failure/poor IV access Post-op diagnosis: same Procedure: DATE: 08/25/2018 CENTRAL LINE PLACEMENT: Left internal jugular vein. Ultrasound-guided INDICATION: Central venous access CONSENT Informed consent for procedure was obtained from competent patient prior to intubation. DESCRIPTION OF THE PROCEDURE The patient was placed in supine position. The skin was cleansed with Chloraprep. Additional barrier precautions included large sterile drape, sterile gloves, sterile gown, face mask, and hat. 1 % lidocaine was used for local anesthesia. Under direct ultrasound guidance and on initial attempt, the vein was accessed with an introducer needle. The guide wire was advanced and the tract was dilated. Using Seldinger technique a 7 Croatian 20 cm antimicrobial coated triple-lumen catheter was advanced to a depth of 20 centimeters. The guide wire was removed. All ports had good return of dark venous blood and flushed easily with saline. The central line was secured with 2.0 silk. A sterile dressing with antibiotic disc was applied. StatLock did not adhere to skin ESTIMATED BLOOD LOSS: Minimal COMPLICATIONS: No apparent complications. STAT chest x-ray pending at time of dictation Documented By: Ford Miguel MD Date of procedure: 08/25/18 Pre-op diagnosis: Hemodynamic instability Post-op diagnosis: same Procedure: DATE: 08/25/2018 PROCEDURE: Right femoral arterial catheter placement INDICATION: Hemodynamic access DETAILS OF PROCEDURE The patient was placed in supine position. The skin was cleansed with Chloraprep. Additional barrier precautions included large sterile drape, sterile gloves, sterile gown, face mask, and hat. 1% lidocaine was used for local anesthesia. Under direct ultrasound guidance and on the initial attempt, the artery was accessed with an introducer needle. The guide wire was advanced. Using Seldinger technique 20 gauge arterial catheter was placed. The guide wire was removed. The catheter was connected to a transducer line and flushed with saline. The video monitor displayed normal arterial wave forms. The catheter was secured with 2-0 silk. A sterile dressing with antibiotic disc was applied. ESTIMATED BLOOD LOSS: minimal COMPLICATIONS: None Documented By: Ford Miguel MD DATE OF OPERATION: 09/06/2018 PREOPERATIVE DIAGNOSIS: Perforation of viscus. POSTOPERATIVE DIAGNOSIS: Perforation of viscus, microperforation of cecum with cecal volvulus. PROCEDURE PERFORMED: 1. Diagnostic laparoscopy. 2. Open exploratory laparotomy. 3. Right hemicolectomy. 4. Primary anastomosis. 5. TANG placement. 6. Washout. SURGEON: Lul Richards MD ONLINE ADVERTISING DIRECTOR: Theresa. ANESTHESIA: GETA. IV FLUIDS: See anesthesia sheet. ESTIMATED BLOOD LOSS: 100 mL. DRAINS: A 19-Croatian Justin drain. COMPLICATIONS: None. WOUND CLASSIFICATION: Contaminated. FINDINGS: Serous intraperitoneal fluid, massive free air, microperforation of cecum with cecal volvulus. SPECIMENS: Right colon. HISTORY OF PRESENT ILLNESS: The patient is an 83-year-old male who presented with multiple medical issues, lung dysfunction and development of a perforation of viscus. The patient planned for emergency operative intervention. DETAILS OF PROCEDURE: The patient was taken to the operative suite, placed in a supine position. She was prepped and draped in the usual sterile fashion after induction of general endotracheal anesthesia. Local anesthetic was injected. Stab doug incision was made. Abdomen is entered with a 5 mm port. Three other ports were placed, including 1 right upper quadrant, 1 right lower quadrant and a left upper quadrant port, 5 mm. Exploration had begun and there was noted to be some serosanguineous fluid throughout the abdomen. This was not overly purulent or did not appear to be significantly succuss. The suction irrigation was done. The examination of the stomach noted no abnormality and noted to be viable and healthy. The small bowel was run from ligament of Treitz to the terminal ileum without evidence of abnormality. The colon was then examined. There was noted to be a volvulus of cecum with a small microperforation and a small necrotic area. At this point, decision was made for an open exploratory laparotomy. The midline was extended with a 15 blade. Further dissection done with electro Bovie electrocautery. Bookwalter retractor was placed. Glen wound protector was also placed. Self-retaining retractors were placed for abdominal exposure. The white line of Toldt was mobilized to mobilize for the cecum, ileocecal valve and terminal ileum. Proximal to the ileocecal valve a 5 cm, a point was transected with a blue DB stapler. Harmonic was used to transect the base of the mesentery and for hemostasis. Proximally, the colon was mobilized. The hepatic flexure was further mobilized as well and the colon was transected proximal to the area of torsion and perforation. Further dissection and ligation of vessels was done with Harmonic scalpel. The colonic specimen, right hemicolon, was removed and placed in pathology. The abdomen was then thoroughly irrigated with warm normal saline. The patient was noted not to be on any pressor support and very stable at the time and had received no transfusion, other than the Kcentra for coagulant Eliquis reversal. The decision at this point was to do primary anastomosis. This was done in a stapled manner. The antimesenteric border and the tinea were placed opposing each other; 3-0 silk sutures were used for this. Small enterotomies were made in both opposing ends and an DB-75 blue load stapler was used to create a [id number] layer. The incisions were grasped with Allis clamps and then a TX 60 was used to transect and staple this closure. The staple line was oversewn with 3-0 silk Lembert sutures. Mesenteric defect was also closed. A crotch stitch was placed. A palpable patent ring was noted and completely viable. The abdomen was again washed out with a liter of warm saline. Omentum was placed back in its anatomical position. A 19-Croatian Justin drain was placed through a separate stab incision in the left lower quadrant and placed in the pelvis and along the right gutter. The abdomen was closed with looped PDS x 2 in a running fashion followed by misha and a TANG dressing was placed. 2-0 nylon used to secure 19-Croatian Justin drain in place. The patient tolerated the procedure well. There were no intraoperative complications. All lap and instrument counts were correct at the end of the procedure. The patient was taken to ICU in critical condition. Lul Richards MD (1) Perforated abdominal viscus (2) Cecal volvulus - Postoperative Diagnosis (1) Perforated abdominal viscus Procedure: dx lap,ex lap right hemicolectomy, primary anastomsis, tang Surgeon: Lul Richards MD Estimated blood loss (mL): 15 Pathology: none sent Operation and Findings: free air Documented By: Lul Richards MD 09/06/18 1158 Assessment and Plan - Assessment (1) COPD (chronic obstructive pulmonary disease) Code(s): J44.9 - Chronic obstructive pulmonary disease, unspecified Status: Acute (2) Severe sepsis Code(s): A41.9 - Sepsis, unspecified organism; R65.20 - Severe sepsis without septic shock Status: Acute (3) Pneumonia Code(s): J18.9 - Pneumonia, unspecified organism Status: Acute (4) Acute respiratory failure with hypoxia and hypercapnia Code(s): J96.01 - Acute respiratory failure with hypoxia; J96.02 - Acute respiratory failure with hypercapnia Status: Acute (5) Lactic acidosis Code(s): E87.2 - Acidosis Status: Acute (6) Atrial fibrillation with rapid ventricular response Code(s): I48.91 - Unspecified atrial fibrillation Status: Acute (7) Acute kidney injury Code(s): N17.9 - Acute kidney failure, unspecified Status: Acute (8) Chronic steroid use Status: Chronic (9) Hypertension Code(s): I10 - Essential (primary) hypertension Status: Chronic (10) Pulmonary cavitary lesion Code(s): J98.4 - Other disorders of lung Status: Acute (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 Cont on Home CPAP ,FIO2 30 % at HS 2. O2 N/C 3 L daytime 3. Duoneb nebs tid PRN 4. wishes to transfer Patient to hospital up [place]. 5. Continue antibiotics per ID . 6. EzPAP with Nebs qid. 7. Continue Eliquis 5 mg BID. 8. Cont Breo 200/25 Mcg, 1 puff daily 9. PT evaluation for activity (3) Pneumonia Qualifiers: Pneumonia type: due to unspecified organism Laterality: bilateral Lung location: unspecified part of lung Qualified Code(s): J18.9 - Pneumonia, unspecified organism (9) Hypertension Qualifiers: Hypertension type: essential hypertension Qualified Code(s): I10 - Essential (primary) hypertension
[2018-09-14] MEDS: Oral Hygiene Kit OROPHARYNG SCH ×5 (01:13→23:42)
[2018-09-14] MEDS: Piperacil/Tazo 4.5 GM Premix 4.5 GM/100 ML BAG IV.SIG SCH ×4 (04:26→23:06)
[2018-09-14] MEDS: Artificial Tears Opth Drops 15 ML Bottle EACH EYE SCH ×3 (06:06→22:50)
[2018-09-14 07:46] LABS: Baso # (Auto) 0.1 th/mm3 (0.0-0.2); Baso % (Auto) 0.5 % (0.0-2.0); Eos % (Auto) 0.3 % (0.0-4.0); Hematocrit 31.4 % (39.0-51.0); Hemoglobin 10.3 gm/dL (13.0-17.0); Lymph # (Auto) 0.5 th/mm3 (1.0-4.8); Mean Corpuscular HGB Conc 32.8 % (32.0-36.0); Mean Corpuscular Hemoglobin 32.1 pg (27.0-34.0); Mean Corpuscular Volume 97.9 fL (80.0-100.0); Mean Platelet Volume 9.5 fL (7.0-11.0); Mono # (Auto) 0.5 th/mm3 (0.0-0.9); Mono % (Auto) 3.2 % (0.0-8.0); Neut # (Auto) 14.4 th/mm3 (1.8-7.7); Platelet Count 168 th/mm3 (150-450); Red Blood Count 3.21 mil/mm3 (4.50-5.90); Red Cell Distribution Width 15.9 % (11.6-17.2); White Blood Count 15.5 th/mm3 (4.0-11.0)
[2018-09-14 08:04] LABS: Alanine Aminotransferase 32 U/L (12-78); Albumin 1.6 g/dL (3.4-5.0); Alkaline Phosphatase 68 U/L (45-117); Anion Gap 9 meq/L (5-15); Aspartate Aminotransferase 31 U/L (15-37); Blood Urea Nitrogen 21 mg/dL (7-18); Calcium 8.5 mg/dL (8.5-10.1); Carbon Dioxide 30.4 meq/L (21.0-32.0); Chloride 107 meq/L (98-107); Glomerular Filtration Rate 64 mL/min (>89); Glucose,Random 106 mg/dL (74-106); Magnesium 1.9 mg/dL (1.5-2.5); Phosphorus 3.1 mg/dL (2.5-4.9); Sodium 146 meq/L (136-145); Thyroid Stimulating Hormone 0.814 uIU/mL (0.358-3.740); Total Protein 4.8 g/dL (6.4-8.2)
[2018-09-14 08:11] LABS: Potassium 2.6 meq/L (3.5-5.1)
[2018-09-14] MEDS: Chlorhexidine 0.12% Oral Kit 15 ML UDC OROPHARYNG SCH ×2 (09:22→22:48)
[2018-09-14] MEDS: Senna/Docusate Sodium 8.6/50 MG Tablet PO SCH ×2 (09:23→22:49)
[2018-09-14] MEDS: Lactobacillus Acidophilus/L. Spores Tablet PO SCH ×2 (09:23→22:49)
--- NOTE | 2018-09-14 13:07 | XR ---
EXAM DATE: 09/14/2018 12:57 PM EST AGE/SEX: 83 years / Male INDICATIONS: Abdominal pain and vomiting. CLINICAL DATA: This is the patient's subsequent encounter. Patient reports that signs and symptoms h ave been present for 1 day and indicates a pain score of 8/10. MEDICAL/SURGICAL HISTORY: Chronic obstructive pulmonary disease. Hypertension. AFIB. Lithotri psy. COMPARISON: [facility] [place], CT ABDOMEN & PELVIS W/O CONTRAST, 09/07/2018. . FINDINGS: 3 frontal supine views of the abdomen demonstrate gaseous dilatation of the small bowel measuring up to 5 cm in the left mid abdomen. Most of the proximal and mid small bowel are dilated. Minimal if an y colon gas is visualized. No organomegaly or concerning calcifications are identified. Skin misha on the overlying abdomen. A catheter overlies the pelvis. No acute osseous abnormality is identified . There is airspace consolidation at both lung bases. CONCLUSION: 1. Abnormal dilatation of at least the proximal and mid small bowel with minimal if any colon gas. T hese findings raise suspicion for some degree of small bowel obstruction. This could be further shea cterized with abdomen and pelvis CT, if needed. 2. Persistent abnormal airspace consolidation at both lung bases. Electronically signed by: Ed Jade MD 09/14/2018 1:05 PM EST
--- NOTE | 2018-09-14 13:11 | P.PNGS ---
Subjective Patient reports: diarrhea, nausea, vomiting, shortness of breath Physical Exam Vital signs: Vital Signs 09/13/18 16:00 09/13/18 20:00 09/13/18 20:03 Temperature 97.5 F L 97.1 F L Pulse Rate 87 88 Respiratory Rate 20 20 Blood Pressure 138/60 99/62 L Pulse Oximetry 94 L 96 95 09/14/18 00:00 09/14/18 04:00 09/14/18 08:00 Temperature 97.9 F 98.1 F 97.1 F L Pulse Rate 82 90 89 Respiratory Rate 22 22 16 Blood Pressure 107/64 115/72 123/69 Pulse Oximetry 93 L 95 94 L 09/14/18 08:50 Temperature Pulse Rate 103 H Respiratory Rate Blood Pressure Pulse Oximetry 94 L Intake & Output 09/13/18 09/14/18 09/14/18 18:59 06:59 18:59 Intake Total 1277.5 / 1277.5 200 / 200 260 / 260 Output Total 500 / 500 650 / 650 Balance 777.5 / 777.5 -450 / -450 260 / 260 Weight 105.7 kg Intake: IV 917.5 / 917.5 200 / 200 260 / 260 Zosyn 4.5 GM Premix 4.5 gm In 200 / 200 200 / 200 100 ml @ 200 mls/hr IV.SIG Q6H BRIANNA Rx#:[id number] KCl 40 mEq Premix Inj 40 meq In 100 / 100 100 ml @ 25 mls/hr IV.SIG ONCE ONE Rx#:[id number] Vancomycin Inj 1,750 MG In NS 517.5 / 517.5 Inj 500 ML @ 250 mls/hr IV.SIG Q24H BRIANNA Rx#:[id number] Flagyl 500 MG Inj 100 ML @ 100 100 / 100 mls/hr IV.SIG Q6H BRIANNA Rx#: [id number] Oral 360 / 360 0 / 0 Output: Urine 500 / 500 350 / 350 Wound Drainage 300 / 300 # 1 Left Lower Abdomen 300 / 300 Other: Date of Last Bowel Movement 09/13/18 09/13/18 # Bowel Movements 2 1 - Routine Abdominal Exam Present: normoactive bowel sounds, distended, wound, drain - Urinary Catheter Management Indwelling Temp Sensing Catheter Cath placed during this visit: yes, but has since been removed by the nurse Reason for continuing: Decision to DC catheter Insertion date: 08/25/18 Insertion time: 14:20 Removal date: 08/29/18 Removal time: 12:30 Indwelling Urethral Catheter Cath placed during this visit: yes Urethral indwelling: No Reason for continuing: Hourly intake/output Insertion date: 09/06/18 Insertion time: 12:00 Results - Labs 09/14/18 05:11 09/14/18 05:11 Laboratory Results - last 24 hr 09/14/18 09/14/18 05:11 05:11 WBC 15.5 H RBC 3.21 L Hgb 10.3 L Hct 31.4 L MCV 97.9 D MCH 32.1 MCHC 32.8 RDW 15.9 Plt Count 168 MPV 9.5 Neut % (Auto) 93.0 H Lymph % (Auto) 3.0 L Hardeman % (Auto) 3.2 Eos % (Auto) 0.3 Baso % (Auto) 0.5 Neut # (Auto) 14.4 H Lymph # (Auto) 0.5 L Hardeman # (Auto) 0.5 Eos # (Auto) 0.0 Baso # (Auto) 0.1 WBC Differential . Differential Comment Auto diff final Sodium 146 H Potassium 2.6 L* Chloride 107 Carbon Dioxide 30.4 Anion Gap 9 BUN 21 H Creatinine 1.10 Estimated GFR 64 L Random Glucose 106 Calcium 8.5 Phosphorus 3.1 Magnesium 1.9 Total Bilirubin 0.7 AST 31 ALT 32 Alkaline Phosphatase 68 Total Protein 4.8 L Albumin 1.6 L TSH 0.814 Free T4 1.00 - Imaging Imaging: ITS Impressions Abdomen/Bladder Ultrasound 08/25/18 00:00 CONCLUSION: 1. No evidence of hydronephrosis. 2. Bilateral renal cysts, mostly simple, with one cyst demonstrating homogeneous low level echoes, located in the midpole the left kidney and measuring 4 cm. Venous Doppler Study 08/25/18 00:00 CONCLUSION: 1. The study is negative for bilateral lower extremity deep venous thrombosis. Chest CT 09/05/18 00:00 CONCLUSION: 1. 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 2. Right lower lobe cavitary mass. 3. Probably benign left adrenal lesion Head CT 09/05/18 00:00 CONCLUSION: 1. No acute intracranial abnormalities. . Abdomen/Pelvis CT 09/07/18 00:00 CONCLUSION: 1. Status post recent abdominal surgery with free air throughout the abdomen. 2. Mild air-filled loops of small bowel suggestive of a postoperative ileus. 3. Otherwise no other significant changes are seen compared to the prior exam. Chest X-Ray 09/11/18 00:00 CONCLUSION: Slight improvement in the bilateral infiltrates. Abdomen X-Ray 09/14/18 11:50 CONCLUSION: 1. Abnormal dilatation of at least the proximal and mid small bowel with minimal if any colon gas. These findings raise suspicion for some degree of small bowel obstruction. This could be further characterized with abdomen and pelvis CT, if needed. 2. Persistent abnormal airspace consolidation at both lung bases. 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 Richards aware
--- NOTE | 2018-09-14 13:57 | P.PNIM ---
Subjective Interval history: This is an 83-year-old male. Date of admission 08/25/2018. Past medical includes atrial fibrillation with history of cardioversion, chronic apixaban use, hypertension, hyperlipidemia, trigeminal neuralgia/hard of hearing : Bilateral hearing aids. For the past 4 days, patient been increasing short of breath increased malaise. Denies any sick contacts or recent travels. Unknown influenza status. Patient is to [facility] with worsening shortness of breath. Complains of pleuritic and musculoskeletal chest pain. Patient also has a prior history of tobacco abuse times 50 years quit 15 years ago. Patient called EMS for evaluation due to acute shortness of breath. Upon arrival, patient was noted to be in a rapid heart rate in the 150s. Patient was given acute bronchodilator therapy and started on a lidocaine drip for possible V. tach. Patient was transported to [facility] for further evaluation treatment. Upon arrival, patient was noted to be in A. fib with RVR. Chest x-ray revealed bilateral infiltrates right greater than left. Patient was placed on BiPAP therapy with some improvement. Patient received ceftriaxone and azithromycin. 3 L normal saline. Patient remained somewhat hypotensive. Patient a lactate of 5.1. Troponin 0 0.27. Patient was transported to [facility]. On arrival, patient increasingly short of breath. Required intubation with central line placement and arterial line placement. SUBJECTIVE: 08/26: Currently resting in bed intubated requiring mechanical ventilation. Arousable and does follow commands but heart rate much better controlled rate. No acute findings overnight. Leukocytosis slightly worsened. Potassium replaced currently. Arousable and does follow commands. at bedside and updated Wilma. 08/27: Patient on low-dose (2 mcg) levo overnight, off since this morning. Low urine output over the past 24 hours. HR well-controlled in 70s-80s. 08/28: Patient tolerated PST yesterday afternoon, placed back on AC overnight to rest. Urine output improved with lasix/ Chavez was noted to be clogged with sediment and replaced. No new issues. 08/29: Extubated yesterday, on bipap through the afternoon/ evening (patient is on nocturnal CPAP at home). BP persistently elevated, now on cardene gtt. 08/30: On BiPAP overnight. Currently on facemask O2. Sitting up in chair, not in any acute distress. 08/31: Critical care reconsulted this morning due to free air noted under the diaphragm on routine chest x-ray. When I evaluated the patient he was resting in bed on nasal cannula. No hypotension overnight. He did have a BM yesterday he has been having vague abdominal discomfort. He appears more lethargic and delirious yesterday according to his . Patient was drowsy but easily arousable however appeared encephalopathic. He did not appear to be in any acute distress however on examination of his abdomen did grimace some guarding. He did receive Eliquis this morning. On review of CT done on 09/05 patient appears to have free intraperitoneal air. This was discussed with Dr. Richards. Plan was made for exploratory laparotomy Maurice. I did order K Centra for Eliquis reversal per discussion with Dr. Richards. Also spoke with patient's regarding concern regarding perforated viscus and need for emergency surgery she voiced understanding. Patient is on Unasyn and being followed by ID. Ordered normal saline IV fluids and made patient n.p.o. 09/07: Extubated yesterday but breathing a little labored this morning. Respiratory rate around 30 with some accessory muscle use. Lung joel generally clear with a few scattered rhonchi on the right side. No wheezing. No crackles. We tried BiPAP noninvasive ventilation and he was much more comfortable and promptly went to sleep. Although gas exchange is acceptable his work of breathing is clearly excessive without support. 09/08: Extubated 48 hours ago. Comfortable on BiPAP noninvasive ventilation but labored when off. Fluid balance not particularly problematic, but most of respiratory difficulty appears to be the mobilization of secretions. 09/09: Resting comfortably on nasal cannula. NG tube clamped this morning. 09/10 TRANSFERRED TO OUR CARE TODAY -Patient is awake and alert today. Still with profound weakness. He has no complaints. Discussed with RN. Hypokalemic. Hyponatremia is worse today. 09/11 Interval history: Patient is more alert today. He states he is feeling better. He was able to eat by himself. He is feeling a little stronger. 09/12 Interval history: Patient reports he is feeling stronger today. He is hoping to get strong enough [place] No increase in shortness of breath. Stable on nasal cannula. Using BiPAP at night. 09/13 TRANSFERRED OUT OF ICU WILL PROBABLY NEED LOCAL REHAB HYPOKALEMIA WILL REPLACE AM LABS DW RN AND PT AND FAMILY AND CAM 09/14 HAVING PERSISTENT NAUSEA AND VOMITING SEVERE HYPOKALEMIA WILL REPLACE AND PLACE ON PROTOCOLS DW DW SURGERY THEY WANT TO TRANSFER BACK TO ICU NEEDS NGT TO SUCTION PERSISTENT NAUSEA FOR PAST 3 DAYS PER NOT TOLERATING A DIET AT ALL TODAY Physical Exam Vital signs: Vital Signs 09/13/18 16:00 09/13/18 20:00 09/13/18 20:03 Temperature 97.5 F L 97.1 F L Pulse Rate 87 88 Respiratory Rate 20 20 Blood Pressure 138/60 99/62 L Pulse Oximetry 94 L 96 95 09/14/18 00:00 09/14/18 04:00 09/14/18 08:00 Temperature 97.9 F 98.1 F 97.1 F L Pulse Rate 82 90 89 Respiratory Rate 22 22 16 Blood Pressure 107/64 115/72 123/69 Pulse Oximetry 93 L 95 94 L 09/14/18 08:50 Temperature Pulse Rate 103 H Respiratory Rate Blood Pressure Pulse Oximetry 94 L Intake & Output 09/13/18 09/14/18 09/14/18 18:59 06:59 18:59 Intake Total 1277.5 / 1277.5 200 / 200 260 / 260 Output Total 500 / 500 650 / 650 Balance 777.5 / 777.5 -450 / -450 260 / 260 Weight 105.7 kg Intake: IV 917.5 / 917.5 200 / 200 260 / 260 Zosyn 4.5 GM Premix 4.5 gm In 200 / 200 200 / 200 100 ml @ 200 mls/hr IV.SIG Q6H BRIANNA Rx#:[id number] KCl 40 mEq Premix Inj 40 meq In 100 / 100 100 ml @ 25 mls/hr IV.SIG ONCE ONE Rx#:[id number] Vancomycin Inj 1,750 MG In NS 517.5 / 517.5 Inj 500 ML @ 250 mls/hr IV.SIG Q24H BRIANNA Rx#:[id number] Flagyl 500 MG Inj 100 ML @ 100 100 / 100 mls/hr IV.SIG Q6H BRIANNA Rx#: [id number] Oral 360 / 360 0 / 0 Output: Urine 500 / 500 350 / 350 Wound Drainage 300 / 300 # 1 Left Lower Abdomen 300 / 300 Other: Date of Last Bowel Movement 09/13/18 09/13/18 # Bowel Movements 2 1 Narrative: GENERAL: Elderly obese male alert IN SOME ACUTE DISTRESS SKIN: Warm and dry. MULTIPLE HERPETIC BLOOD LESIONS ON LIPS AND CHIN AREA HEAD: Atraumatic. Normocephalic. EYES: Pupils equal and round. No scleral icterus. No injection or drainage. ENT: No nasal bleeding or discharge. Mucous membranes pink and moist. NECK: Trachea midline. No JVD. CARDIOVASCULAR: Regular rate and rhythm. S1, S2, NO S3 OR S4 RESPIRATORY: No accessory muscle use. air movement is fair. crackles at the bases bilaterally. GASTROINTESTINAL: Abdomen DISTENDED-DIFFUSELY TENDER HYPOACTIVE BOWEL SOUND. Dressing in place. tender around the surgical site. MUSCULOSKELETAL: Extremities without clubbing, cyanosis,but has 2 + edema. NEUROLOGICAL: Generalized weakness. moving legs better. - Urinary Catheter Management Indwelling Temp Sensing Catheter Cath placed during this visit: yes, but has since been removed by the nurse Reason for continuing: Decision to DC catheter Insertion date: 08/25/18 Insertion time: 14:20 Removal date: 08/29/18 Removal time: 12:30 Indwelling Urethral Catheter Cath placed during this visit: yes Urethral indwelling: No Reason for continuing: Hourly intake/output Insertion date: 09/06/18 Insertion time: 12:00 Results - Labs CBC & Chem 7: 09/14/18 05:11 09/14/18 05:11 Laboratory Results - last 24 hr 09/14/18 09/14/18 05:11 05:11 WBC 15.5 H RBC 3.21 L Hgb 10.3 L Hct 31.4 L MCV 97.9 D MCH 32.1 MCHC 32.8 RDW 15.9 Plt Count 168 MPV 9.5 Neut % (Auto) 93.0 H Lymph % (Auto) 3.0 L [place] % (Auto) 3.2 Eos % (Auto) 0.3 Baso % (Auto) 0.5 Neut # (Auto) 14.4 H Lymph # (Auto) 0.5 L [place] # (Auto) 0.5 Eos # (Auto) 0.0 Baso # (Auto) 0.1 WBC Differential . Differential Comment Auto diff final Sodium 146 H Potassium 2.6 L* Chloride 107 Carbon Dioxide 30.4 Anion Gap 9 BUN 21 H Creatinine 1.10 Estimated GFR 64 L Random Glucose 106 Calcium 8.5 Phosphorus 3.1 Magnesium 1.9 Total Bilirubin 0.7 AST 31 ALT 32 Alkaline Phosphatase 68 Total Protein 4.8 L Albumin 1.6 L TSH 0.814 Free T4 1.00 - Imaging Impressions Abdomen X-Ray 09/14/18 11:50 CONCLUSION: 1. Abnormal dilatation of at least the proximal and mid small bowel with minimal if any colon gas. These findings raise suspicion for some degree of small bowel obstruction. This could be further characterized with abdomen and pelvis CT, if needed. 2. Persistent abnormal airspace consolidation at both lung bases. - Procedures Date of procedure: 08/25/18 Pre-op diagnosis: Acute respiratory failure Post-op diagnosis: same Procedure: DATE: 08/25/2018 PROCEDURE: Orotracheal intubation INDICATION: Pneumonia/respiratory failure acute DETAILS OF PROCEDURE The patient was placed in optimal position and preoxygenated with 100% FiO2 via bag valve mask. At the start oxygen saturation was 98 %. The patient was administered 20 mg etomidate IV and 50 mg rocuronium IV. I entered the oropharynx with a size 4 laryngoscope blade and obtained a grade 2 view of the airway. On single attempt a size 8.0 cuffed endotracheal tube was passed through the vocal cords. Correct tube location was confirmed with end tidal CO2 detector and by auscultating over bilateral lung joel. The endotracheal tube was secured with adhesive tape at a depth of 24 cm at the lips. The patient was connected to the ventilator. The patient tolerated the procedure well without any apparent complications. Oxygen saturations were maintained greater than 95% all times. STAT chest x-ray pending at time of dictation. Documented By: Ford Miguel MD 08/25/18 Date of procedure: 08/25/18 Pre-op diagnosis: Acute respiratory failure/poor IV access Post-op diagnosis: same Procedure: DATE: 08/25/2018 CENTRAL LINE PLACEMENT: Left internal jugular vein. Ultrasound-guided INDICATION: Central venous access CONSENT Informed consent for procedure was obtained from competent patient prior to intubation. DESCRIPTION OF THE PROCEDURE The patient was placed in supine position. The skin was cleansed with Chloraprep. Additional barrier precautions included large sterile drape, sterile gloves, sterile gown, face mask, and hat. 1 % lidocaine was used for local anesthesia. Under direct ultrasound guidance and on initial attempt, the vein was accessed with an introducer needle. The guide wire was advanced and the tract was dilated. Using Seldinger technique a 7 [place] 20 cm antimicrobial coated triple-lumen catheter was advanced to a depth of 20 centimeters. The guide wire was removed. All ports had good return of dark venous blood and flushed easily with saline. The central line was secured with 2.0 silk. A sterile dressing with antibiotic disc was applied. StatLock did not adhere to skin ESTIMATED BLOOD LOSS: Minimal COMPLICATIONS: No apparent complications. STAT chest x-ray pending at time of dictation Documented By: Ford Miguel MD Date of procedure: 08/25/18 Pre-op diagnosis: Hemodynamic instability Post-op diagnosis: same Procedure: DATE: 08/25/2018 PROCEDURE: Right femoral arterial catheter placement INDICATION: Hemodynamic access DETAILS OF PROCEDURE The patient was placed in supine position. The skin was cleansed with Chloraprep. Additional barrier precautions included large sterile drape, sterile gloves, sterile gown, face mask, and hat. 1% lidocaine was used for local anesthesia. Under direct ultrasound guidance and on the initial attempt, the artery was accessed with an introducer needle. The guide wire was advanced. Using Seldinger technique 20 gauge arterial catheter was placed. The guide wire was removed. The catheter was connected to a transducer line and flushed with saline. The video monitor displayed normal arterial wave forms. The catheter was secured with 2-0 silk. A sterile dressing with antibiotic disc was applied. ESTIMATED BLOOD LOSS: minimal COMPLICATIONS: None Documented By: Ford Miguel MD DATE OF OPERATION: 09/06/2018 PREOPERATIVE DIAGNOSIS: Perforation of viscus. POSTOPERATIVE DIAGNOSIS: Perforation of viscus, microperforation of cecum with cecal volvulus. PROCEDURE PERFORMED: 1. Diagnostic laparoscopy. 2. Open exploratory laparotomy. 3. Right hemicolectomy. 4. Primary anastomosis. 5. TANG placement. 6. Washout. SURGEON: Lul Richards MD DIESEL LUBE TECH: Theresa. ANESTHESIA: GETA. IV FLUIDS: See anesthesia sheet. ESTIMATED BLOOD LOSS: 100 mL. DRAINS: A 19-[place]ese Justin drain. COMPLICATIONS: None. WOUND CLASSIFICATION: Contaminated. FINDINGS: Serous intraperitoneal fluid, massive free air, microperforation of cecum with cecal volvulus. SPECIMENS: Right colon. HISTORY OF PRESENT ILLNESS: The patient is an 83-year-old male who presented with multiple medical issues, lung dysfunction and development of a perforation of viscus. The patient planned for emergency operative intervention. DETAILS OF PROCEDURE: The patient was taken to the operative suite, placed in a supine position. She was prepped and draped in the usual sterile fashion after induction of general endotracheal anesthesia. Local anesthetic was injected. Stab doug incision was made. Abdomen is entered with a 5 mm port. Three other ports were placed, including 1 right upper quadrant, 1 right lower quadrant and a left upper quadrant port, 5 mm. Exploration had begun and there was noted to be some serosanguineous fluid throughout the abdomen. This was not overly purulent or did not appear to be significantly succuss. The suction irrigation was done. The examination of the stomach noted no abnormality and noted to be viable and healthy. The small bowel was run from ligament of Treitz to the terminal ileum without evidence of abnormality. The colon was then examined. There was noted to be a volvulus of cecum with a small microperforation and a small necrotic area. At this point, decision was made for an open exploratory laparotomy. The midline was extended with a 15 blade. Further dissection done with electro Bovie electrocautery. Bookwalter retractor was placed. Glen wound protector was also placed. Self-retaining retractors were placed for abdominal exposure. The white line of Toldt was mobilized to mobilize for the cecum, ileocecal valve and terminal ileum. Proximal to the ileocecal valve a 5 cm, a point was transected with a blue DB stapler. Harmonic was used to transect the base of the mesentery and for hemostasis. Proximally, the colon was mobilized. The hepatic flexure was further mobilized as well and the colon was transected proximal to the area of torsion and perforation. Further dissection and ligation of vessels was done with Harmonic scalpel. The colonic specimen, right hemicolon, was removed and placed in pathology. The abdomen was then thoroughly irrigated with warm normal saline. The patient was noted not to be on any pressor support and very stable at the time and had received no transfusion, other than the Kcentra for coagulant Eliquis reversal. The decision at this point was to do primary anastomosis. This was done in a stapled manner. The antimesenteric border and the tinea were placed opposing each other; 3-0 silk sutures were used for this. Small enterotomies were made in both opposing ends and an DB-75 blue load stapler was used to create a [id number] layer. The incisions were grasped with Allis clamps and then a TX 60 was used to transect and staple this closure. The staple line was oversewn with 3-0 silk Lembert sutures. Mesenteric defect was also closed. A crotch stitch was placed. A palpable patent ring was noted and completely viable. The abdomen was again washed out with a liter of warm saline. Omentum was placed back in its anatomical position. A 19-[place] Justin drain was placed through a separate stab incision in the left lower quadrant and placed in the pelvis and along the right gutter. The abdomen was closed with looped PDS x 2 in a running fashion followed by misha and a TANG dressing was placed. 2-0 nylon used to secure 19-[place] Justin drain in place. The patient tolerated the procedure well. There were no intraoperative complications. All lap and instrument counts were correct at the end of the procedure. The patient was taken to ICU in critical condition. Lul Richards MD (1) Perforated abdominal viscus (2) Cecal volvulus - Postoperative Diagnosis (1) Perforated abdominal viscus Procedure: dx lap,ex lap right hemicolectomy, primary anastomsis, tang Surgeon: Lul Richards MD Estimated blood loss (mL): 15 Pathology: none sent Operation and Findings: free air Documented By: Lul Richards MD 09/06/18 1158 Assessment and Plan - Assessment (1) COPD (chronic obstructive pulmonary disease) Code(s): J44.9 - Chronic obstructive pulmonary disease, unspecified Status: Acute (2) Severe sepsis Code(s): A41.9 - Sepsis, unspecified organism; R65.20 - Severe sepsis without septic shock Status: Acute (3) Pneumonia Code(s): J18.9 - Pneumonia, unspecified organism Status: Acute (4) Acute respiratory failure with hypoxia and hypercapnia Code(s): J96.01 - Acute respiratory failure with hypoxia; J96.02 - Acute respiratory failure with hypercapnia Status: Acute (5) Lactic acidosis Code(s): E87.2 - Acidosis Status: Acute (6) Atrial fibrillation with rapid ventricular response Code(s): I48.91 - Unspecified atrial fibrillation Status: Acute (7) Acute kidney injury Code(s): N17.9 - Acute kidney failure, unspecified Status: Acute (8) Chronic steroid use Status: Chronic (9) Hypertension Code(s): I10 - Essential (primary) hypertension Status: Chronic (10) Pulmonary cavitary lesion Code(s): J98.4 - Other disorders of lung Status: Acute (11) Status post colectomy Code(s): Z90.49 - Acquired absence of other specified parts of digestive tract Status: Acute (12) Atelectasis of both lungs Code(s): J98.11 - Atelectasis Status: Acute - Plan 83 Y/O male with acute respiratory failure secondary to pneumonia. His ICU course is somewhat prolonged. Has had issues with agitation at night and not wearing bipap. Pneumonia is persisting. His antibiotics were changed. He is showing some improvement. Pulmonology following. Continue to treat pneumonia per ID. He is very deconditioned and will likely need rehab. His 's goal [place] doctors. Other active issues include hypernatremia and sundowning. 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 Continue rehabilitation efforts. Transfer BACK TO ICU Community acquired pneumonia Perforated viscus Blood cultures from 08/25 grew Haemophilus influenza sensitive to penicillins/ cephalosporins, s/p ceftriaxone Repeat blood cultures sent on 08/27 negative thus far Sputum and urine cultures no growth to date Flu and MRSA swabs negative Legionella and pneumococcus negative ID following for antibiotic management. 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 NG tube discontinued, diet advanced to liquid diet per general surgery. Pantoprazole for GI prophylaxis Docusate sodium/senna 1 tablet twice daily for bowel regimen General surgery following. PERSISTENT NAUSEA AND VOMITING TRANSFER BACK TO ICU NGT DW SURGERY NOT TOLERATING PO MEDS AND PO INTAKE WESLEY, resolved Hypernatremia Hypokalemia BID lasix dosing, hold No urine eosinophils noted Renal ultrasound - bilateral renal cyst. Possible hemorrhagic left renal cyst Avoid nephrotoxic medication Monitor urine output Accurate I's and O's Nephrology following. Hypernatremia resolving. On D5W per nephrology. Follow-up BMP in a.m. Potassium replacement. Check mag SEVERE POTASSIUM LEVEL DYSFUNCTION DUE TO VOMITING Atrial fibrillation with rapid ventricular response currently rate controlled Elevated troponin History of essential hypertension Hyperlipidemia Lactic acidosis Trop 0.27 on admission, most recent 0.08, no longer trending Echo: EF 45%, RV enlargement/ dysfunction, PAP 38 mm Hg Continue beta-tristian Eliquis restarted. Hypokalemia - Check mag HYPOKALEMIA WILL REPLACE AGAIN Delirium: Likely related to medical conditions and ICU: Much improved. He is sleeping better and is more appropriate. -Delirium precautions (lights on/ shades up during the day, limit nighttime disruptions, frequent reorientation, use hearing aids) Prophylaxis -GI -pantoprazole -DVT -SCD/apixaban PT WORSENING TRANSFER TO ICU AT SURGICAL REQUEST BY DR MARCELO CONSULT IRRIGATION FLUME LAYER AGAIN Code Status: FULL CODE Discussed Condition With: RN AND PT AND AND SURGERY Discharge Planning: PATIENT HAVING PERSISTENT NAUSEA AND VOMITING TRANSFER BACK TO ICU AT SURGERY REQUEST (3) Pneumonia Qualifiers: Pneumonia type: due to unspecified organism Laterality: bilateral Lung location: unspecified part of lung Qualified Code(s): J18.9 - Pneumonia, unspecified organism (9) Hypertension Qualifiers: Hypertension type: essential hypertension Qualified Code(s): I10 - Essential (primary) hypertension
[2018-09-14] MEDS ORDERED: Potassium Chlor 20 mEq Premix 20 MEQ/100 ML PIGGYBACK IV.SIG PRN ×3 (13:58→14:18)
[2018-09-14] MEDS ORDERED: Potassium Phosphate Inj 30 MMOL in Sodium Chlor 0.9% Inj 250 ML IV.SIG PRN ×2 (13:58→14:18)
[2018-09-14] MEDS ORDERED: Magnesium Oxide 400 MG Tablet PO PRN ×2 (13:58→14:18)
[2018-09-14] MEDS ORDERED: Potassium Phosphate 500 MG Soluble Tablet PO PRN ×4 (13:58→14:18)
[2018-09-14] MEDS ORDERED: Potassium Chlor 40 mEq Premix 40 MEQ/100 ML PIGGYBACK IV.SIG PRN ×4 (13:58→14:18)
[2018-09-14] MEDS ORDERED: Magnesium Sulfate Inj 4 GM in Sodium Chlor 0.9% Inj 92 ML IV.SIG PRN ×2 (13:58→14:18)
[2018-09-14] MEDS ORDERED: Potassium Chloride 25 MEQ Effervescent Tablet PO PRN ×2 (13:58→14:18)
[2018-09-14] MEDS ORDERED: Magnesium Sulfate Inj 2 GM in Sodium Chlor 0.9% Inj 96 ML IV.SIG PRN ×2 (13:58→14:18)
[2018-09-14] MEDS ORDERED: Sodium Phosphate Inj 30 MMOL in Sodium Chlor 0.9% Inj 250 ML IV.SIG PRN ×2 (13:58→14:18)
[2018-09-14] MEDS ORDERED: Potassium Chlor 10 mEq Premix 10 MEQ/100 ML PIGGYBACK IV.SIG SCH (14:00)
[2018-09-14] MEDS ORDERED: Potassium Chlor 20 mEq Premix 20 MEQ/100 ML PIGGYBACK IV.SIG SCH (14:17)
[2018-09-14] MEDS ORDERED: Pantoprazole Inj 80 MG in Sodium Chlor 0.9% Inj 35 ML IV.SIG ONE (15:00)
--- NOTE | 2018-09-14 15:14 | P.PNCC ---
Subjective Subjective Remarks/Hospital Course: This is an 83-year-old male. Date of admission 08/25/2018. Past medical includes atrial fibrillation with history of cardioversion, chronic apixaban use, hypertension, hyperlipidemia, trigeminal neuralgia/hard of hearing : Bilateral hearing aids. For the past 4 days, patient been increasing short of breath increased malaise. Denies any sick contacts or recent travels. Unknown influenza status. Patient is to [facility] with worsening shortness of breath. Complains of pleuritic and musculoskeletal chest pain. Patient also has a prior history of tobacco abuse times 50 years quit 15 years ago. Patient called EMS for evaluation due to acute shortness of breath. Upon arrival, patient was noted to be in a rapid heart rate in the 150s. Patient was given acute bronchodilator therapy and started on a lidocaine drip for possible V. tach. Patient was transported to [facility] for further evaluation treatment. Upon arrival, patient was noted to be in A. fib with RVR. Chest x-ray revealed bilateral infiltrates right greater than left. Patient was placed on BiPAP therapy with some improvement. Patient received ceftriaxone and azithromycin. 3 L normal saline. Patient remained somewhat hypotensive. Patient a lactate of 5.1. Troponin 0 0.27. Patient was transported to [facility]. On arrival, patient increasingly short of breath. Required intubation with central line placement and arterial line placement. SUBJECTIVE: 08/26: Currently resting in bed intubated requiring mechanical ventilation. Arousable and does follow commands but heart rate much better controlled rate. No acute findings overnight. Leukocytosis slightly worsened. Potassium replaced currently. Arousable and does follow commands. at bedside and updated Wilma. 08/27: Patient on low-dose (2 mcg) levo overnight, off since this morning. Low urine output over the past 24 hours. HR well-controlled in 70s-80s. 08/28: Patient tolerated PST yesterday afternoon, placed back on AC overnight to rest. Urine output improved with lasix/ Chavez was noted to be clogged with sediment and replaced. No new issues. 08/29: Extubated yesterday, on bipap through the afternoon/ evening (patient is on nocturnal CPAP at home). BP persistently elevated, now on cardene gtt. 08/30: On BiPAP overnight. Currently on facemask O2. Sitting up in chair, not in any acute distress. 08/31: Critical care reconsulted this morning due to free air noted under the diaphragm on routine chest x-ray. When I evaluated the patient he was resting in bed on nasal cannula. No hypotension overnight. He did have a BM yesterday he has been having vague abdominal discomfort. He appears more lethargic and delirious yesterday according to his . Patient was drowsy but easily arousable however appeared encephalopathic. He did not appear to be in any acute distress however on examination of his abdomen did grimace some guarding. He did receive Eliquis this morning. On review of CT done on 09/05 patient appears to have free intraperitoneal air. This was discussed with Dr. Richards. Plan was made for exploratory laparotomy Maurice. I did order [facility] for Eliquis reversal per discussion with Dr. Richards. Also spoke with patient's regarding concern regarding perforated viscus and need for emergency surgery she voiced understanding. Patient is on Unasyn and being followed by ID. Ordered normal saline IV fluids and made patient n.p.o. 09/07: Extubated yesterday but breathing a little labored this morning. Respiratory rate around 30 with some accessory muscle use. Lung joel generally clear with a few scattered rhonchi on the right side. No wheezing. No crackles. We tried BiPAP noninvasive ventilation and he was much more comfortable and promptly went to sleep. Although gas exchange is acceptable his work of breathing is clearly excessive without support. 09/08: Extubated 48 hours ago. Comfortable on BiPAP noninvasive ventilation but labored when off. Fluid balance not particularly problematic, but most of respiratory difficulty appears to be the mobilization of secretions. 09/09: Resting comfortably on nasal cannula. NG tube clamped this morning. 09/14: Critical care reconsulted by Dr. Clement Carpenter as patient developed nausea vomiting and diarrhea on the floor yesterday with inability to keep anything down as well as shortness of breath. KUB shows ileus. Patient has been hypokalemic for the last few days which may be contributing to the ileus. I evaluated the patient immediately on his arrival to the ICU. He was slightly tachypneic on nasal cannula 3-4 L/min. He was maintaining his O2 sats. He did not appear to be in severe distress however was tachypneic. He denied any significant abdominal discomfort chest pain. NG tube was placed and coffee- ground gastric aspirate was suctioned out about 700 cc. He underwent a right hemicolectomy for perforated cecum on 08/[address] Richards and was subsequently extubated and transferred to the floor and was being followed by the hospitalist service and Dr. Richards. History was obtained by reviewing records and discussion with Dr. Carpenter and nursing staff. Objective Vital Signs / I&O: Vital Signs 09/13/18 16:00 09/13/18 20:00 09/13/18 20:03 Temperature 97.5 F L 97.1 F L Pulse Rate 87 88 Respiratory Rate 20 20 Blood Pressure 138/60 99/62 L Pulse Oximetry 94 L 96 95 09/14/18 00:00 09/14/18 04:00 09/14/18 08:00 Temperature 97.9 F 98.1 F 97.1 F L Pulse Rate 82 90 89 Respiratory Rate 22 22 16 Blood Pressure 107/64 115/72 123/69 Pulse Oximetry 93 L 95 94 L 09/14/18 08:50 09/14/18 12:00 09/14/18 14:56 Temperature 97.3 F L Pulse Rate 103 H 83 90 Respiratory Rate 16 Blood Pressure 117/79 Pulse Oximetry 94 L 96 Intake & Output 09/13/18 09/14/18 09/14/18 18:59 06:59 18:59 Intake Total 1277.5 / 1277.5 200 / 200 270 / 270 Output Total 500 / 500 650 / 650 Balance 777.5 / 777.5 -450 / -450 270 / 270 Weight 105.7 kg Intake: IV 917.5 / 917.5 200 / 200 270 / 270 Zosyn 4.5 GM Premix 4.5 gm In 200 / 200 200 / 200 10 / 10 100 ml @ 200 mls/hr IV.SIG Q6H BRIANNA Rx#:[id number] KCl 40 mEq Premix Inj 40 meq In 100 / 100 100 ml @ 25 mls/hr IV.SIG ONCE ONE Rx#:[id number] Vancomycin Inj 1,750 MG In NS 517.5 / 517.5 Inj 500 ML @ 250 mls/hr IV.SIG Q24H BRIANNA Rx#:[id number] Flagyl 500 MG Inj 100 ML @ 100 100 / 100 mls/hr IV.SIG Q6H BRIANNA Rx#: [id number] Oral 360 / 360 0 / 0 Output: Urine 500 / 500 350 / 350 Wound Drainage 300 / 300 # 1 Left Lower Abdomen 300 / 300 Other: Date of Last Bowel Movement 09/13/18 09/14/18 # Bowel Movements 2 1 Result Diagrams: 09/14/18 05:11 09/14/18 05:11 Objective Remarks: GENERAL: Lethargic elderly gentleman, lying in bed, slightly tachypneic on nasal cannula SKIN: Warm and dry. HEENT: Perioral herpetic lesions. Airway widely patent. Trachea midline. CARDIOVASCULAR: Irregular, irregular rate. No JVD RESPIRATORY: Air entry decreased bilaterally at bases, scattered rhonchi, no wheezing GASTROINTESTINAL: Abdomen soft, incision site with misha in place. Incision site clean dry and intact. DAVID drain has been discontinued. Bowel sounds sluggish, no guarding or tenderness elicited. MUSCULOSKELETAL: 1+ pitting edema in all extremities NEUROLOGICAL: Awake alert oriented x3, moving both upper extremities with purpose, grossly nonfocal Assessment and Plan - Problem List (1) Acute respiratory failure with hypoxia and hypercapnia Code(s): J96.01 - Acute respiratory failure with hypoxia; J96.02 - Acute respiratory failure with hypercapnia Status: Acute (2) Hyponatremia Code(s): E87.1 - Hypo-osmolality and hyponatremia Status: Acute (3) Lactic acidosis Code(s): E87.2 - Acidosis Status: Acute (4) Atrial fibrillation with rapid ventricular response Code(s): I48.91 - Unspecified atrial fibrillation Status: Acute (5) Acute kidney injury Code(s): N17.9 - Acute kidney failure, unspecified Status: Acute (6) Chronic steroid use Status: Chronic (7) Hypertension Code(s): I10 - Essential (primary) hypertension Status: Chronic (8) Hyperlipidemia Code(s): E78.5 - Hyperlipidemia, unspecified Status: Chronic (9) Hard of hearing Code(s): H91.90 - Unspecified hearing loss, unspecified ear Status: Chronic (10) Trigeminal neuralgia Code(s): G50.0 - Trigeminal neuralgia Status: Chronic (11) Chronic anticoagulation Code(s): Z79.01 - assistant terminal manager (current) use of anticoagulants Status: Chronic (12) Leukocytosis Code(s): D72.829 - Elevated white blood cell count, unspecified Status: Acute (13) Elevated troponin Code(s): R74.8 - Abnormal levels of other serum enzymes Status: Acute (14) Hypoalbuminemia Code(s): E88.09 - Other disorders of plasma-protein metabolism, not elsewhere classified Status: Acute - Assessment and Plan Plan: Neuro/Psych: Hard of hearing Acetaminophen 650 mg by tube every 6 hours as needed fever Delirium precautions (lights on/ shades up during the day, limit nighttime disruptions, frequent reorientation, use hearing aids) CV: Atrial fibrillation with rapid ventricular response currently rate controlled Elevated troponin History of essential hypertension Hyperlipidemia Lactic acidosis Trop 0.27 on admission, most recent 0.08, no longer trending Echo: EF 45%, RV enlargement/ dysfunction, PAP 38 mm Hg Continue beta-tristian Hold Eliquis in view of coffee-ground NG aspirate Resp: Acute respiratory failure secondary to community acquired pneumonia History of COPD Possible amiodarone lung toxicity Albuterol/ipratropium aerosols every 4 hours with albuterol aerosols every 2 hours as needed dyspnea Continue home fluticasone/Vilanterol 200/25 1 inhalation daily Continue nocturnal CPAP/ PRN BiPAP Pulmonology following, 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 Switch Protonix daily to Protonix 80 mg bolus followed by 8 mg/h in view of coffee-ground NG aspirate. Hemoglobin appears stable NG be placed to low intermittent wall suction. Check stool for C. difficile in view of diarrhea as patient has been on antibiotics. Renal/: WESLEY Strict intake output, monitor and replete elect lites, follow BUN/creatinine. IV hydration with LR plus KCl at 100 cc an hour. Ordered IV KCl for hypokalemia Renal ultrasound - bilateral renal cyst. Possible hemorrhagic left renal cyst Avoid nephrotoxic medication Endo: Acute hyperglycemia Chronic steroid use Low TSH SSI TSH was 0.094, normal T4, T3 low-- would recheck in 4 weeks after critical illness has resolved Heme: Monitor CBC. Eliquis will be held due to coffee-ground NG aspirate. ID: Community acquired pneumonia Perforated viscus Blood cultures from 08/25 grew Haemophilus influenza sensitive to penicillins/ cephalosporins, s/p ceftriaxone Repeat blood cultures sent on 08/27 negative thus far Sputum and urine cultures no growth to date Flu and MRSA swabs negative Legionella and pneumococcus negative ID following for antibiotic management. Currently on IV Zosyn/vancomycin. Will switch to p.o. fluconazole to IV due to ileus with inability to tolerate p.o. MSK: Elevated BMI PT evaluate and treat Weight loss encouraged FEN: Hypokalemia ICU electrolyte protocol Prophylaxis -GI -pantoprazole -DVT -SCD/apixaban will be held for exploratory laparotomy. Restart when okay with surgical service (7) Hypertension Qualifiers: Hypertension type: essential hypertension Qualified Code(s): I10 - Essential (primary) hypertension (8) Hyperlipidemia Qualifiers: Hyperlipidemia type: unspecified Qualified Code(s): E78.5 - Hyperlipidemia, unspecified (9) Hard of hearing Qualifiers: Hearing loss type: unspecified Laterality: bilateral Qualified Code(s): H91.93 - Unspecified hearing loss, bilateral (12) Leukocytosis Qualifiers: Leukocytosis type: unspecified Qualified Code(s): D72.829 - Elevated white blood cell count, unspecified
[2018-09-14 15:19] LABS: Calcium 8.2 mg/dL (8.5-10.1); Carbon Dioxide 31.7 meq/L (21.0-32.0)
[2018-09-14 15:22] LABS: Potassium 2.9 meq/L (3.5-5.1)
[2018-09-14] MEDS: LACTATED RINGER S IV.CONT SCH (15:36)
[2018-09-14] MEDS: DEXTROSE IV.CONT SCH (15:36)
[2018-09-14] MEDS: POTASSIUM CHLORIDE IV.CONT SCH (15:36)
[2018-09-14] MEDS ORDERED: Pantoprazole Inj 80 MG in Sodium Chlor 0.9% Inj 100 ML IV.CONT SCH (16:00)
[2018-09-14] MEDS: Pantoprazole Inj 80 MG in Sodium Chlor 0.9% Inj 100 ML IV.CONT SCH (16:11)
[2018-09-14] MEDS: Vancomycin Inj 1,250 MG in Sodium Chlor 0.9% Inj 250 ML IV.SIG SCH (16:30)
[2018-09-14] MEDS: Potassium Chlor 20 mEq Premix 20 MEQ/100 ML PIGGYBACK IV.SIG SCH (18:12)
[2018-09-15] MEDS: Potassium Chlor 20 mEq Premix 20 MEQ/100 ML PIGGYBACK IV.SIG SCH ×3 (00:47→10:03)
[2018-09-15] MEDS: Pantoprazole Inj 80 MG in Sodium Chlor 0.9% Inj 100 ML IV.CONT SCH ×3 (01:26→23:17)
[2018-09-15 05:23] LABS: Baso % (Auto) 0.1 % (0.0-2.0); Hematocrit 30.8 % (39.0-51.0); Hemoglobin 10.1 gm/dL (13.0-17.0); Lymph # (Auto) 0.4 th/mm3 (1.0-4.8); Lymph % (Auto) 2.3 % (9.0-44.0); Mean Corpuscular HGB Conc 32.8 % (32.0-36.0); Mean Corpuscular Hemoglobin 31.8 pg (27.0-34.0); Mean Corpuscular Volume 97.1 fL (80.0-100.0); Mono # (Auto) 0.4 th/mm3 (0.0-0.9); Mono % (Auto) 2.5 % (0.0-8.0); Neut # (Auto) 16.1 th/mm3 (1.8-7.7); Neut % (Auto) 95.1 % (16.0-70.0); Platelet Count 143 th/mm3 (150-450); Red Blood Count 3.17 mil/mm3 (4.50-5.90); Red Cell Distribution Width 16.6 % (11.6-17.2); White Blood Count 16.9 th/mm3 (4.0-11.0)
[2018-09-15] MEDS: Piperacil/Tazo 4.5 GM Premix 4.5 GM/100 ML BAG IV.SIG SCH ×4 (05:24→23:36)
[2018-09-15] MEDS: Oral Hygiene Kit OROPHARYNG SCH ×3 (05:24→17:32)
[2018-09-15 05:44] LABS: Alanine Aminotransferase 30 U/L (12-78); Albumin 1.5 g/dL (3.4-5.0); Anion Gap 9 meq/L (5-15); Aspartate Aminotransferase 25 U/L (15-37); Blood Urea Nitrogen 24 mg/dL (7-18); Calcium 8.2 mg/dL (8.5-10.1); Chloride 107 meq/L (98-107); Glomerular Filtration Rate 54 mL/min (>89); Glucose,Random 150 mg/dL (74-106); Magnesium 1.9 mg/dL (1.5-2.5); Sodium 147 meq/L (136-145)
[2018-09-15 05:46] LABS: Alkaline Phosphatase 74 U/L (45-117); Phosphorus 3.2 mg/dL (2.5-4.9); Total Protein 4.9 g/dL (6.4-8.2)
[2018-09-15] MEDS: Artificial Tears Opth Drops 15 ML Bottle EACH EYE SCH ×3 (10:04→23:03)
[2018-09-15] MEDS: DEXTROSE IV.CONT SCH ×3 (10:04→23:11)
[2018-09-15] MEDS: POTASSIUM CHLORIDE IV.CONT SCH ×3 (10:04→23:11)
[2018-09-15] MEDS: LACTATED RINGER S IV.CONT SCH ×3 (10:04→23:11)
[2018-09-15] MEDS: Chlorhexidine 0.12% Oral Kit 15 ML UDC OROPHARYNG SCH ×2 (10:04→23:00)
[2018-09-15] MEDS: Lactobacillus Acidophilus/L. Spores Tablet PO SCH ×2 (10:05→23:01)
[2018-09-15] MEDS: Senna/Docusate Sodium 8.6/50 MG Tablet PO SCH ×2 (10:06→23:01)
[2018-09-15 12:41] LABS: Hemoglobin A1c 6.3 % (4.3-6.0)
[2018-09-15] MEDS: Vancomycin Inj 1,250 MG in Sodium Chlor 0.9% Inj 250 ML IV.SIG SCH (13:13)
--- NOTE | 2018-09-15 16:22 | P.PNGS ---
Subjective Patient reports: pain is less, bowel movement, vomiting Physical Exam Vital signs: Vital Signs 09/14/18 16:56 09/14/18 17:00 09/14/18 18:00 Temperature Pulse Rate 90 100 H 98 H Respiratory Rate 26 H 25 H Blood Pressure 115/81 115/61 Pulse Oximetry 86 L 85 L 09/14/18 19:00 09/14/18 20:00 09/14/18 21:00 Temperature 98.3 F Pulse Rate 95 H 99 H 101 H Respiratory Rate 25 H 28 H 29 H Blood Pressure 110/71 100/61 111/70 Pulse Oximetry 89 L 94 L 96 09/14/18 21:04 09/14/18 21:41 09/14/18 22:00 Temperature Pulse Rate 100 H 96 H Respiratory Rate 26 H 33 H Blood Pressure 89/55 L Pulse Oximetry 98 95 89 L 09/14/18 22:16 09/14/18 22:31 09/14/18 22:46 Temperature Pulse Rate 99 H 101 H 104 H Respiratory Rate 26 H 25 H 29 H Blood Pressure 98/62 L 114/62 103/75 Pulse Oximetry 86 L 86 L 88 L 09/14/18 23:00 09/15/18 00:00 09/15/18 01:00 Temperature 97.9 F Pulse Rate 99 H 98 H 99 H Respiratory Rate 25 H 23 28 H Blood Pressure 119/64 108/58 L 101/62 Pulse Oximetry 90 L 94 L 92 L 09/15/18 02:00 09/15/18 03:00 09/15/18 03:01 Temperature Pulse Rate 98 H 98 H 100 H Respiratory Rate 24 40 H 34 H Blood Pressure 101/61 112/66 Pulse Oximetry 92 L 09/15/18 03:55 09/15/18 04:00 09/15/18 05:00 Temperature 97.7 F Pulse Rate 81 91 H 92 H Respiratory Rate 22 20 19 Blood Pressure 117/70 119/69 Pulse Oximetry 100 95 09/15/18 06:00 09/15/18 07:00 09/15/18 08:00 Temperature 98.2 F Pulse Rate 89 85 94 H Respiratory Rate 15 20 20 Blood Pressure 127/74 113/70 125/80 Pulse Oximetry 92 L 89 L 92 L 09/15/18 09:00 09/15/18 10:00 12/09/18 11:00 Temperature Pulse Rate 89 89 106 H Respiratory Rate 20 19 28 H Blood Pressure 124/86 116/83 139/74 Pulse Oximetry 92 L 95 96 09/15/18 12:00 09/15/18 14:00 Temperature 98.5 F Pulse Rate 88 88 Respiratory Rate 18 Blood Pressure 130/79 Pulse Oximetry 99 Intake & Output 09/14/18 09/15/18 09/15/18 18:59 06:59 18:59 Intake Total 667.5 / 667.5 400 / 400 2662.5 / 2662.5 Output Total 300 / 300 450 / 450 Balance 367.5 / 367.5 -50 / -50 2662.5 / 2662.5 Weight 102.1 kg Intake: IV 667.5 / 667.5 400 / 400 2662.5 / 2662.5 Protonix Inj 80 MG In NS Inj 100 / 100 0 / 0 100 ML @ 10 mls/hr IV.CONT Q10H BRIANNA Rx#:[id number] KCl Inj 40 MEQ In D5W/LR Inj 1, 2000 / 2000 000 ML @ 100 mls/hr IV.CONT . [id number] BRIANNA Rx#:[id number] Protonix Inj 80 MG In NS Inj 35 35 / 35 ML @ 420 mls/hr IV.SIG BOLUS ONE Rx#:[id number] Zosyn 4.5 GM Premix 4.5 gm In 110 / 110 100 / 100 200 / 200 100 ml @ 200 mls/hr IV.SIG Q6H BRIANNA Rx#:[id number] KCl 20 mEq Premix Inj 20 meq In 200 / 200 100 / 100 100 ml @ 50 mls/hr IV.SIG Q2H BRIANNA Rx#:[id number] Vancomycin Inj 1,250 MG In NS 262.5 / 262.5 262.5 / 262.5 Inj 250 ML @ 250 mls/hr IV.SIG Q24H BRIANNA Rx#:[id number] Oral 0 / 0 Output: Urine 300 / 300 200 / 200 Gastric Drainage 50 / 50 Left Nare 50 / 50 Wound Drainage 200 / 200 Left Lower Anterior Abdomen 200 / 200 Other: # Voids 2 3 # Incontinent Voids 2 Date of Last Bowel Movement 09/14/18 09/15/18 09/14/18 # Bowel Movements 1 - Constitutional no acute distress - Routine Abdominal Exam Present: soft, normoactive bowel sounds. Absent: tenderness, distended, rebound , guarding - Urinary Catheter Management Indwelling Temp Sensing Catheter Cath placed during this visit: yes, but has since been removed by the nurse Reason for continuing: Decision to DC catheter Insertion date: 08/25/18 Insertion time: 14:20 Removal date: 08/29/18 Removal time: 12:30 Indwelling Urethral Catheter Cath placed during this visit: yes Urethral indwelling: No Reason for continuing: Hourly intake/output Insertion date: 09/06/18 Insertion time: 12:00 Results - Labs 09/15/18 04:14 09/15/18 04:14 Laboratory Results - last 24 hr 09/14/18 09/15/18 09/15/18 05:11 02:35 04:14 WBC 16.9 H RBC 3.17 L Hgb 10.1 L Hct 30.8 L MCV 97.1 MCH 31.8 MCHC 32.8 RDW 16.6 Plt Count 143 L MPV 9.0 Neut % (Auto) 95.1 H Lymph % (Auto) 2.3 L Greene % (Auto) 2.5 Eos % (Auto) 0.0 Baso % (Auto) 0.1 Neut # (Auto) 16.1 H Lymph # (Auto) 0.4 L Greene # (Auto) 0.4 Eos # (Auto) 0.0 Baso # (Auto) 0.0 WBC Differential . Differential Comment Auto diff final Sodium Potassium Chloride Carbon Dioxide Anion Gap BUN Creatinine Estimated GFR Random Glucose Hemoglobin A1c 6.3 H Calcium Phosphorus Magnesium Total Bilirubin AST ALT Alkaline Phosphatase Total Protein Albumin Stl C.difficile DNA Amp Negative St C. diff Tox Epid 027 Negative 09/15/18 04:14 WBC RBC Hgb Hct MCV MCH MCHC RDW Plt Count MPV Neut % (Auto) Lymph % (Auto) Greene % (Auto) Eos % (Auto) Baso % (Auto) Neut # (Auto) Lymph # (Auto) Greene # (Auto) Eos # (Auto) Baso # (Auto) WBC Differential Differential Comment Sodium 147 H Potassium 3.0 L Chloride 107 Carbon Dioxide 31.0 Anion Gap 9 BUN 24 H Creatinine 1.27 Estimated GFR 54 L Random Glucose 150 H Hemoglobin A1c Calcium 8.2 L Phosphorus 3.2 Magnesium 1.9 Total Bilirubin 0.7 AST 25 ALT 30 Alkaline Phosphatase 74 Total Protein 4.9 L Albumin 1.5 L Stl C.difficile DNA Amp St C. diff Tox Epid 027 - Imaging Imaging: ITS Impressions Abdomen/Bladder Ultrasound 08/25/18 00:00 CONCLUSION: 1. No evidence of hydronephrosis. 2. Bilateral renal cysts, mostly simple, with one cyst demonstrating homogeneous low level echoes, located in the midpole the left kidney and measuring 4 cm. Venous Doppler Study 08/25/18 00:00 CONCLUSION: 1. The study is negative for bilateral lower extremity deep venous thrombosis. Chest CT 09/05/18 00:00 CONCLUSION: 1. 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 2. Right lower lobe cavitary mass. 3. Probably benign left adrenal lesion Head CT 09/05/18 00:00 CONCLUSION: 1. No acute intracranial abnormalities. . Abdomen/Pelvis CT 09/07/18 00:00 CONCLUSION: 1. Status post recent abdominal surgery with free air throughout the abdomen. 2. Mild air-filled loops of small bowel suggestive of a postoperative ileus. 3. Otherwise no other significant changes are seen compared to the prior exam. Chest X-Ray 09/11/18 00:00 CONCLUSION: Slight improvement in the bilateral infiltrates. Abdomen X-Ray 09/14/18 11:50 CONCLUSION: 1. Abnormal dilatation of at least the proximal and mid small bowel with minimal if any colon gas. These findings raise suspicion for some degree of small bowel obstruction. This could be further characterized with abdomen and pelvis CT, if needed. 2. Persistent abnormal airspace consolidation at both lung bases. Assessment and Plan - Assessment (1) Cecal volvulus Code(s): K56.2 - Volvulus Status: Acute Plan: POD4 Dx lap, ex lap, right emily, cecal perforation, -PO ileus, NG in place -stable, abdominal exam non-surgical
--- NOTE | 2018-09-15 16:35 | P.PNCC ---
Subjective Subjective Remarks/Hospital Course: This is an 83-year-old male. Date of admission 08/25/2018. Past medical includes atrial fibrillation with history of cardioversion, chronic apixaban use, hypertension, hyperlipidemia, trigeminal neuralgia/hard of hearing : Bilateral hearing aids. For the past 4 days, patient been increasing short of breath increased malaise. Denies any sick contacts or recent travels. Unknown influenza status. Patient is to [facility] with worsening shortness of breath. Complains of pleuritic and musculoskeletal chest pain. Patient also has a prior history of tobacco abuse times 50 years quit 15 years ago. Patient called EMS for evaluation due to acute shortness of breath. Upon arrival, patient was noted to be in a rapid heart rate in the 150s. Patient was given acute bronchodilator therapy and started on a lidocaine drip for possible V. tach. Patient was transported to [facility] for further evaluation treatment. Upon arrival, patient was noted to be in A. fib with RVR. Chest x-ray revealed bilateral infiltrates right greater than left. Patient was placed on BiPAP therapy with some improvement. Patient received ceftriaxone and azithromycin. 3 L normal saline. Patient remained somewhat hypotensive. Patient a lactate of 5.1. Troponin 0 0.27. Patient was transported to [facility]. On arrival, patient increasingly short of breath. Required intubation with central line placement and arterial line placement. SUBJECTIVE: 08/26: Currently resting in bed intubated requiring mechanical ventilation. Arousable and does follow commands but heart rate much better controlled rate. No acute findings overnight. Leukocytosis slightly worsened. Potassium replaced currently. Arousable and does follow commands. at bedside and updated Wilma. 08/27: Patient on low-dose (2 mcg) levo overnight, off since this morning. Low urine output over the past 24 hours. HR well-controlled in 70s-80s. 08/28: Patient tolerated PST yesterday afternoon, placed back on AC overnight to rest. Urine output improved with lasix/ Chavez was noted to be clogged with sediment and replaced. No new issues. 08/29: Extubated yesterday, on bipap through the afternoon/ evening (patient is on nocturnal CPAP at home). BP persistently elevated, now on cardene gtt. 08/30: On BiPAP overnight. Currently on facemask O2. Sitting up in chair, not in any acute distress. 08/31: Critical care reconsulted this morning due to free air noted under the diaphragm on routine chest x-ray. When I evaluated the patient he was resting in bed on nasal cannula. No hypotension overnight. He did have a BM yesterday he has been having vague abdominal discomfort. He appears more lethargic and delirious yesterday according to his . Patient was drowsy but easily arousable however appeared encephalopathic. He did not appear to be in any acute distress however on examination of his abdomen did grimace some guarding. He did receive Eliquis this morning. On review of CT done on 09/05 patient appears to have free intraperitoneal air. This was discussed with Dr. Richards. Plan was made for exploratory laparotomy Maurice. I did order [facility] for Eliquis reversal per discussion with Dr. Richards. Also spoke with patient's regarding concern regarding perforated viscus and need for emergency surgery she voiced understanding. Patient is on Unasyn and being followed by ID. Ordered normal saline IV fluids and made patient n.p.o. 09/07: Extubated yesterday but breathing a little labored this morning. Respiratory rate around 30 with some accessory muscle use. Lung joel generally clear with a few scattered rhonchi on the right side. No wheezing. No crackles. We tried BiPAP noninvasive ventilation and he was much more comfortable and promptly went to sleep. Although gas exchange is acceptable his work of breathing is clearly excessive without support. 09/08: Extubated 48 hours ago. Comfortable on BiPAP noninvasive ventilation but labored when off. Fluid balance not particularly problematic, but most of respiratory difficulty appears to be the mobilization of secretions. 09/09: Resting comfortably on nasal cannula. NG tube clamped this morning. 09/14: Critical care reconsulted by Dr. Clement Carpenter as patient developed nausea vomiting and diarrhea on the floor yesterday with inability to keep anything down as well as shortness of breath. KUB shows ileus. Patient has been hypokalemic for the last few days which may be contributing to the ileus. I evaluated the patient immediately on his arrival to the ICU. He was slightly tachypneic on nasal cannula 3-4 L/min. He was maintaining his O2 sats. He did not appear to be in severe distress however was tachypneic. He denied any significant abdominal discomfort chest pain. NG tube was placed and coffee- ground gastric aspirate was suctioned out about 700 cc. He underwent a right hemicolectomy for perforated cecum on 08/[address] Richards and was subsequently extubated and transferred to the floor and was being followed by the hospitalist service and Dr. Richards. History was obtained by reviewing records and discussion with Dr. Carpenter and nursing staff. 09/15: Lying in bed no acute distress. NG tube in place. Clinically ileus seems to be improving. having BM. K+ getting replaced Objective Vital Signs / I&O: Vital Signs 09/14/18 16:56 09/14/18 17:00 09/14/18 18:00 Temperature Pulse Rate 90 100 H 98 H Respiratory Rate 26 H 25 H Blood Pressure 115/81 115/61 Pulse Oximetry 86 L 85 L 09/14/18 19:00 09/14/18 20:00 09/14/18 21:00 Temperature 98.3 F Pulse Rate 95 H 99 H 101 H Respiratory Rate 25 H 28 H 29 H Blood Pressure 110/71 100/61 111/70 Pulse Oximetry 89 L 94 L 96 09/14/18 21:04 09/14/18 21:41 09/14/18 22:00 Temperature Pulse Rate 100 H 96 H Respiratory Rate 26 H 33 H Blood Pressure 89/55 L Pulse Oximetry 98 95 89 L 09/14/18 22:16 09/14/18 22:31 09/14/18 22:46 Temperature Pulse Rate 99 H 101 H 104 H Respiratory Rate 26 H 25 H 29 H Blood Pressure 98/62 L 114/62 103/75 Pulse Oximetry 86 L 86 L 88 L 09/14/18 23:00 09/15/18 00:00 09/15/18 01:00 Temperature 97.9 F Pulse Rate 99 H 98 H 99 H Respiratory Rate 25 H 23 28 H Blood Pressure 119/64 108/58 L 101/62 Pulse Oximetry 90 L 94 L 92 L 09/15/18 02:00 09/15/18 03:00 09/15/18 03:01 Temperature Pulse Rate 98 H 98 H 100 H Respiratory Rate 24 40 H 34 H Blood Pressure 101/61 112/66 Pulse Oximetry 92 L 09/15/18 03:55 09/15/18 04:00 09/15/18 05:00 Temperature 97.7 F Pulse Rate 81 91 H 92 H Respiratory Rate 22 20 19 Blood Pressure 117/70 119/69 Pulse Oximetry 100 95 09/15/18 06:00 09/15/18 07:00 09/15/18 08:00 Temperature 98.2 F Pulse Rate 89 85 94 H Respiratory Rate 15 20 20 Blood Pressure 127/74 113/70 125/80 Pulse Oximetry 92 L 89 L 92 L 09/15/18 09:00 09/15/18 10:00 09/15/18 11:00 Temperature Pulse Rate 89 89 106 H Respiratory Rate 20 19 28 H Blood Pressure 124/86 116/83 139/74 Pulse Oximetry 92 L 95 96 09/15/18 12:00 09/15/18 14:00 09/15/18 16:00 Temperature 98.5 F Pulse Rate 88 88 64 Respiratory Rate 18 Blood Pressure 130/79 Pulse Oximetry 99 99 Intake & Output 09/14/18 09/15/18 09/15/18 18:59 06:59 18:59 Intake Total 667.5 / 667.5 400 / 400 2662.5 / 2662.5 Output Total 300 / 300 450 / 450 Balance 367.5 / 367.5 -50 / -50 2662.5 / 2662.5 Weight 102.1 kg Intake: IV 667.5 / 667.5 400 / 400 2662.5 / 2662.5 Protonix Inj 80 MG In NS Inj 100 / 100 0 / 0 100 ML @ 10 mls/hr IV.CONT Q10H BRIANNA Rx#:[id number] KCl Inj 40 MEQ In D5W/LR Inj 1, 2000 / 1999 000 ML @ 100 mls/hr IV.CONT . [id number] BRIANNA Rx#:[id number] Protonix Inj 80 MG In NS Inj 35 35 / 35 ML @ 420 mls/hr IV.SIG BOLUS ONE Rx#:[id number] Zosyn 4.5 GM Premix 4.5 gm In 110 / 110 100 / 100 200 / 200 100 ml @ 200 mls/hr IV.SIG Q6H BRIANNA Rx#:[id number] KCl 20 mEq Premix Inj 20 meq In 200 / 200 100 / 100 100 ml @ 50 mls/hr IV.SIG Q2H BRIANNA Rx#:[id number] Vancomycin Inj 1,250 MG In NS 262.5 / 262.5 262.5 / 262.5 Inj 250 ML @ 250 mls/hr IV.SIG Q24H BRIANNA Rx#:[id number] Oral 0 / 0 Output: Urine 300 / 300 200 / 200 Gastric Drainage 50 / 50 Left Nare 50 / 50 Wound Drainage 200 / 200 Left Lower Anterior Abdomen 200 / 200 Other: # Voids 2 3 # Incontinent Voids 2 Date of Last Bowel Movement 09/14/18 09/15/18 09/15/18 # Bowel Movements 1 Result Diagrams: 09/15/18 04:14 09/15/18 04:14 Objective Remarks: GENERAL: Lethargic elderly gentleman, lying in bed, slightly tachypneic on nasal cannula SKIN: Warm and dry. HEENT: Perioral herpetic lesions. Airway widely patent. Trachea midline. CARDIOVASCULAR: Irregular, irregular rate. No JVD RESPIRATORY: Air entry decreased bilaterally at bases, scattered rhonchi, no wheezing GASTROINTESTINAL: Abdomen soft, incision site with misha in place. Incision site clean dry and intact. Bowel sounds sluggish, no guarding or tenderness elicited. MUSCULOSKELETAL: 1+ pitting edema in all extremities NEUROLOGICAL: Awake alert oriented, moving both upper extremities with purpose, grossly nonfocal. Appears lethargic and tired Assessment and Plan - Problem List (1) Acute respiratory failure with hypoxia and hypercapnia Code(s): J96.01 - Acute respiratory failure with hypoxia; J96.02 - Acute respiratory failure with hypercapnia Status: Acute (2) Hyponatremia Code(s): E87.1 - Hypo-osmolality and hyponatremia Status: Acute (3) Lactic acidosis Code(s): E87.2 - Acidosis Status: Acute (4) Atrial fibrillation with rapid ventricular response Code(s): I48.91 - Unspecified atrial fibrillation Status: Acute (5) Acute kidney injury Code(s): N17.9 - Acute kidney failure, unspecified Status: Acute (6) Chronic steroid use Status: Chronic (7) Hypertension Code(s): I10 - Essential (primary) hypertension Status: Chronic (8) Hyperlipidemia Code(s): E78.5 - Hyperlipidemia, unspecified Status: Chronic (9) Hard of hearing Code(s): H91.90 - Unspecified hearing loss, unspecified ear Status: Chronic (10) Trigeminal neuralgia Code(s): G50.0 - Trigeminal neuralgia Status: Chronic (11) Chronic anticoagulation Code(s): Z79.01 - jail (current) use of anticoagulants Status: Chronic (12) Leukocytosis Code(s): D72.829 - Elevated white blood cell count, unspecified Status: Acute (13) Elevated troponin Code(s): R74.8 - Abnormal levels of other serum enzymes Status: Acute (14) Hypoalbuminemia Code(s): E88.09 - Other disorders of plasma-protein metabolism, not elsewhere classified Status: Acute - Assessment and Plan Plan: Neuro/Psych: Hard of hearing Acetaminophen 650 mg by tube every 6 hours as needed fever Delirium precautions (lights on/ shades up during the day, limit nighttime disruptions, frequent reorientation, use hearing aids) CV: Atrial fibrillation with rapid ventricular response currently rate controlled Elevated troponin History of essential hypertension Hyperlipidemia Lactic acidosis Echo: EF 45%, RV enlargement/ dysfunction, PAP 38 mm Hg Continue beta-tristian Hold Eliquis in view of coffee-ground NG aspirate Trop 0.27 on admission, most recent 0.08, no longer trending Resp: Acute respiratory failure secondary to community acquired pneumonia-resolved History of COPD Possible amiodarone lung toxicity Albuterol/ipratropium aerosols every 4 hours with albuterol aerosols every 2 hours as needed dyspnea Continue home fluticasone/Vilanterol 200/25 1 inhalation daily Continue nocturnal CPAP/ PRN BiPAP Pulmonology following, GI: 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 Switch Protonix daily to Protonix 80 mg bolus followed by 8 mg/h in view of coffee-ground NG aspirate. Hemoglobin appears stable NG be placed to low intermittent wall suction. Check stool for C. difficile in view of diarrhea as patient has been on antibiotics. Negative Renal/: WESLEY Strict intake output, monitor and replete elect lites, follow BUN/creatinine. IV hydration with LR plus KCl at 100 cc an hour. KCl for hypokalemia Renal ultrasound - bilateral renal cyst. Possible hemorrhagic left renal cyst Avoid nephrotoxic medication Endo: Acute hyperglycemia Chronic steroid use Low TSH SSI TSH was 0.094, normal T4, T3 low-- would recheck in 4 weeks after critical illness has resolved Heme: Monitor CBC. Eliquis will be held due to coffee-ground NG aspirate. ID: Community acquired pneumonia Perforated viscus Blood cultures from 08/25 grew Haemophilus influenza sensitive to penicillins/ cephalosporins, s/p ceftriaxone Repeat blood cultures sent on 08/27 negative thus far Sputum and urine cultures no growth to date Flu and MRSA swabs negative Legionella and pneumococcus negative ID following for antibiotic management. Currently on IV Zosyn/vancomycin. p.o. fluconazole to IV due to ileus with inability to tolerate p.o. MSK: Elevated BMI PT evaluate and treat Weight loss encouraged FEN: Hypokalemia ICU electrolyte protocol Prophylaxis -GI -pantoprazole -DVT -SCD/apixaban will be held Level 3 (7) Hypertension Qualifiers: Hypertension type: essential hypertension Qualified Code(s): I10 - Essential (primary) hypertension (8) Hyperlipidemia Qualifiers: Hyperlipidemia type: unspecified Qualified Code(s): E78.5 - Hyperlipidemia, unspecified (9) Hard of hearing Qualifiers: Hearing loss type: unspecified Laterality: bilateral Qualified Code(s): H91.93 - Unspecified hearing loss, bilateral (12) Leukocytosis Qualifiers: Leukocytosis type: unspecified Qualified Code(s): D72.829 - Elevated white blood cell count, unspecified
[2018-09-15 19:52] LABS: Albumin 1.5 g/dL (3.4-5.0); Anion Gap 5 meq/L (5-15); Aspartate Aminotransferase 20 U/L (15-37); Blood Urea Nitrogen 26 mg/dL (7-18); Calcium 8.5 mg/dL (8.5-10.1); Carbon Dioxide 32.7 meq/L (21.0-32.0); Chloride 110 meq/L (98-107); Glomerular Filtration Rate 59 mL/min (>89); Glucose,Random 154 mg/dL (74-106); Sodium 148 meq/L (136-145)
[2018-09-15 19:53] LABS: Alanine Aminotransferase 26 U/L (12-78)
[2018-09-15 19:56] LABS: Alkaline Phosphatase 62 U/L (45-117); Total Protein 4.6 g/dL (6.4-8.2)
[2018-09-15] MEDS: Potassium Chlor 20 mEq Premix 20 MEQ/100 ML PIGGYBACK IV.SIG PRN (23:18)
[2018-09-16] MEDS: Potassium Chlor 20 mEq Premix 20 MEQ/100 ML PIGGYBACK IV.SIG PRN ×2 (01:20→03:49)
[2018-09-16] MEDS: Piperacil/Tazo 4.5 GM Premix 4.5 GM/100 ML BAG IV.SIG SCH ×3 (05:30→17:45)
[2018-09-16 05:46] LABS: Hematocrit 27.5 % (39.0-51.0); Hemoglobin 9.3 gm/dL (13.0-17.0); Mean Corpuscular HGB Conc 33.7 % (32.0-36.0); Mean Corpuscular Hemoglobin 32.4 pg (27.0-34.0); Mean Corpuscular Volume 95.9 fL (80.0-100.0); Mean Platelet Volume 8.8 fL (7.0-11.0); Platelet Count 130 th/mm3 (150-450); Red Blood Count 2.87 mil/mm3 (4.50-5.90); Red Cell Distribution Width 16.2 % (11.6-17.2); White Blood Count 10.8 th/mm3 (4.0-11.0)
--- NOTE | 2018-09-16 05:52 | XR ---
EXAM DATE: 09/16/2018 5:47 AM EST AGE/SEX: 83 years / Male INDICATIONS: Evaluate for ileus. CLINICAL DATA: This is the patient's subsequent encounter. Patient reports that signs and symptoms h ave been present for 3 weeks and indicates a pain score of 2/10. MEDICAL/SURGICAL HISTORY: Hypertension. Chronic obstructive pulmonary disease. A-Fib. Post lori ma knife treatment. Lithotripsy. COMPARISON: . FINDINGS: 2 AP supine views of the abdomen. Nasogastric tube is coiled in the stomach. Cutaneous misha are n oted in the midabdomen. Air-filled distended mid to distal colon is noted. Several loops of air-fille d distended mid small bowel also noted. The degree of bowel distention has decreased when compared to the prior study. CONCLUSION: Distended air-filled small bowel and colon. Decrease in severity of small bowel distention. Electronically signed by: Dane Gee MD 09/16/2018 5:51 AM EST
[2018-09-16 06:15] LABS: Albumin 1.5 g/dL (3.4-5.0); Anion Gap 5 meq/L (5-15); Aspartate Aminotransferase 21 U/L (15-37); Blood Urea Nitrogen 24 mg/dL (7-18); Calcium 8.7 mg/dL (8.5-10.1); Carbon Dioxide 31.7 meq/L (21.0-32.0); Chloride 113 meq/L (98-107); Glomerular Filtration Rate 62 mL/min (>89); Glucose,Random 137 mg/dL (74-106); Magnesium 2.1 mg/dL (1.5-2.5); Potassium 3.6 meq/L (3.5-5.1); Sodium 150 meq/L (136-145)
[2018-09-16 06:19] LABS: Alanine Aminotransferase 25 U/L (12-78); Alkaline Phosphatase 62 U/L (45-117); Total Protein 4.8 g/dL (6.4-8.2)
[2018-09-16] MEDS: Oral Hygiene Kit OROPHARYNG SCH ×2 (06:27→17:44)
[2018-09-16] MEDS: Pantoprazole Inj 80 MG in Sodium Chlor 0.9% Inj 100 ML IV.CONT SCH ×2 (08:36→17:45)
[2018-09-16] MEDS: Chlorhexidine 0.12% Oral Kit 15 ML UDC OROPHARYNG SCH ×2 (09:35→23:06)
[2018-09-16] MEDS: Artificial Tears Opth Drops 15 ML Bottle EACH EYE SCH ×3 (09:35→23:07)
[2018-09-16] MEDS: Senna/Docusate Sodium 8.6/50 MG Tablet PO SCH ×2 (09:36→23:07)
[2018-09-16] MEDS: Lactobacillus Acidophilus/L. Spores Tablet PO SCH ×2 (10:11→23:06)
--- NOTE | 2018-09-16 10:11 | P.PNNP ---
Subjective Interval history: he passed swallowing evaluation. Oral intake to be initiated. Renal function is stable, however he continues to have hypernatremia. Physical Exam Vital signs: Vital Signs 09/15/18 11:00 09/15/18 12:00 09/15/18 13:00 Temperature 98.5 F Pulse Rate 106 H 88 94 H Respiratory Rate 28 H 18 20 Blood Pressure 139/74 130/79 127/70 Pulse Oximetry 96 99 96 09/15/18 14:00 09/15/18 15:00 09/15/18 16:00 Temperature Pulse Rate 93 H 99 H 89 Respiratory Rate 21 24 18 Blood Pressure 120/72 Pulse Oximetry 97 94 L 97 09/15/18 16:55 09/15/18 17:00 09/15/18 17:19 Temperature 97.6 F Pulse Rate 91 H 86 93 H Respiratory Rate 19 19 19 Blood Pressure 107/64 Pulse Oximetry 98 98 09/15/18 18:00 09/15/18 19:00 09/15/18 20:00 Temperature Pulse Rate 84 88 85 Respiratory Rate 18 20 Blood Pressure 122/74 Pulse Oximetry 93 L 09/15/18 20:04 09/15/18 20:20 09/15/18 20:35 Temperature 98.5 F Pulse Rate 93 H 87 Respiratory Rate 22 20 Blood Pressure 128/84 Pulse Oximetry 94 L 94 L 93 L 09/15/18 21:00 09/15/18 22:00 09/15/18 23:00 Temperature Pulse Rate 97 H 87 94 H Respiratory Rate 22 17 19 Blood Pressure 122/84 117/96 H 119/88 Pulse Oximetry 92 L 91 L 76 L 09/16/18 00:00 09/16/18 01:00 09/16/18 02:00 Temperature 98 F Pulse Rate 96 H 96 H 90 Respiratory Rate 22 21 20 Blood Pressure 112/71 114/75 109/65 Pulse Oximetry 90 L 93 L 98 09/16/18 02:44 09/16/18 03:00 09/16/18 04:00 Temperature 98.1 F Pulse Rate 90 97 H 96 H Respiratory Rate 24 20 23 Blood Pressure 109/65 103/64 Pulse Oximetry 100 100 09/16/18 05:00 09/16/18 06:00 09/16/18 08:00 Temperature Pulse Rate 100 H 96 H 98 H Respiratory Rate 24 20 Blood Pressure 110/68 108/66 Pulse Oximetry 99 95 99 09/16/18 08:40 Temperature Pulse Rate 98 H Respiratory Rate 22 Blood Pressure Pulse Oximetry 100 Intake & Output 09/15/18 09/16/18 09/16/18 18:59 06:59 18:59 Intake Total 2762.5 / 2762.5 1520 / 1520 100 / 100 Output Total 600 / 600 800 / 800 Balance 2162.5 / 2162.5 720 / 720 100 / 100 Weight 106.2 kg Intake: IV 2762.5 / 2762.5 1520 / 1520 100 / 100 Protonix Inj 80 MG In NS Inj 0 / 0 100 / 100 100 / 100 100 ML @ 10 mls/hr IV.CONT Q10H BRIANNA Rx#:[id number] KCl Inj 40 MEQ In D5W/LR Inj 1999 / 1999 1020 / 1020 000 ML @ 100 mls/hr IV.CONT . [id number] BRIANNA Rx#:[id number] Zosyn 4.5 GM Premix 4.5 gm In 300 / 300 100 / 100 100 ml @ 200 mls/hr IV.SIG Q6H BRIANNA Rx#:[id number] KCl 20 mEq Premix Inj 20 meq In 100 / 100 300 / 300 100 ml @ 50 mls/hr IV.SIG Q2H PRN Rx#:[id number] Vancomycin Inj 1,250 MG In NS 262.5 / 262.5 Inj 250 ML @ 250 mls/hr IV.SIG Q24H BRIANNA Rx#:[id number] Oral 0 / 0 0 / 0 Output: Urine 600 / 600 600 / 600 Gastric Drainage 200 / 200 Left Nare 200 / 200 Wound Drainage 0 / 0 Left Lower Anterior Abdomen 0 / 0 Other: Date of Last Bowel Movement 09/15/18 09/15/18 09/15/18 # Bowel Movements 0 Narrative: GENERAL: Elderly obese male alert IN SOME ACUTE DISTRESS SKIN: Warm and dry. MULTIPLE HERPETIC LESIONS ON LIPS AND CHIN AREA HEAD: Atraumatic. Normocephalic. EYES: Pupils equal and round. No scleral icterus. No injection or drainage. ENT: No nasal bleeding or discharge. Mucous membranes pink and moist. Abdomen: soft, non tender. - Urinary Catheter Management Indwelling Temp Sensing Catheter Cath placed during this visit: yes, but has since been removed by the nurse Reason for continuing: Decision to DC catheter Insertion date: 08/25/18 Insertion time: 14:20 Removal date: 08/29/18 Removal time: 12:30 Indwelling Urethral Catheter Cath placed during this visit: yes Urethral indwelling: No Reason for continuing: Hourly intake/output Insertion date: 09/06/18 Insertion time: 12:00 Assessment and Plan - Assessment (1) Hypernatremia Code(s): E87.0 - Hyperosmolality and hypernatremia Status: Acute Plan: Change IVF to D5W with potassium. Encourage water intake. (2) Leukocytosis Code(s): D72.829 - Elevated white blood cell count, unspecified Status: Acute Qualifiers: Leukocytosis type: unspecified Qualified Code(s): D72.829 - Elevated white blood cell count, unspecified Plan: Has been diagnosed with pneumonia. Also is on steroids. (3) Pneumonia Code(s): J18.9 - Pneumonia, unspecified organism Status: Acute Qualifiers: Pneumonia type: due to unspecified organism Laterality: bilateral Lung location: unspecified part of lung Qualified Code(s): J18.9 - Pneumonia, unspecified organism Plan: Continue antibiotics, ID following. (4) Hypokalemia Code(s): E87.6 - Hypokalemia Status: Acute Plan: Replace as needed. (5) Volvulus Code(s): K56.2 - Volvulus Status: Acute Plan: Volvulus with cecal perforation. s/p surgery.
[2018-09-16] MEDS: Vancomycin Inj 1,250 MG in Sodium Chlor 0.9% Inj 250 ML IV.SIG SCH (11:35)
--- NOTE | 2018-09-16 11:45 | P.PNGS ---
Subjective Patient reports: no new complaints, feels better, flatus, bowel movement Physical Exam Vital signs: Vital Signs 09/15/18 12:00 09/15/18 13:00 09/15/18 14:00 Temperature 98.5 F Pulse Rate 88 94 H 93 H Respiratory Rate 18 20 21 Blood Pressure 130/79 127/70 120/72 Pulse Oximetry 99 96 97 09/15/18 15:00 09/15/18 16:00 09/15/18 16:55 Temperature 97.6 F Pulse Rate 99 H 89 91 H Respiratory Rate 24 18 19 Blood Pressure 107/64 Pulse Oximetry 94 L 97 98 09/15/18 17:00 09/15/18 17:19 09/15/18 18:00 Temperature Pulse Rate 86 93 H 84 Respiratory Rate 19 19 Blood Pressure Pulse Oximetry 98 09/15/18 19:00 09/15/18 20:00 09/15/18 20:04 Temperature 98.5 F Pulse Rate 88 85 93 H Respiratory Rate 18 20 22 Blood Pressure 122/74 128/84 Pulse Oximetry 93 L 94 L 09/15/18 20:20 09/15/18 20:35 09/15/18 21:00 Temperature Pulse Rate 87 97 H Respiratory Rate 20 22 Blood Pressure 122/84 Pulse Oximetry 94 L 93 L 92 L 09/15/18 22:00 09/15/18 23:00 09/16/18 00:00 Temperature 98 F Pulse Rate 87 94 H 96 H Respiratory Rate 17 19 22 Blood Pressure 117/96 H 119/88 112/71 Pulse Oximetry 91 L 76 L 90 L 09/16/18 01:00 09/16/18 02:00 09/16/18 02:44 Temperature Pulse Rate 96 H 90 90 Respiratory Rate 21 20 24 Blood Pressure 114/75 109/65 Pulse Oximetry 93 L 98 09/16/18 03:00 09/16/18 04:00 09/16/18 05:00 Temperature 98.1 F Pulse Rate 97 H 96 H 100 H Respiratory Rate 20 23 24 Blood Pressure 109/65 103/64 110/68 Pulse Oximetry 100 100 99 09/16/18 06:00 09/16/18 08:00 09/16/18 08:40 Temperature Pulse Rate 96 H 98 H 98 H Respiratory Rate 20 22 Blood Pressure 108/66 Pulse Oximetry 95 99 100 12/10/18 10:00 Temperature Pulse Rate 96 H Respiratory Rate Blood Pressure Pulse Oximetry Intake & Output 09/15/18 09/16/18 09/16/18 18:59 06:59 18:59 Intake Total 2762.5 / 2762.5 1620 / 1620 100 / 100 Output Total 600 / 600 800 / 800 Balance 2162.5 / 2162.5 820 / 820 100 / 100 Weight 106.2 kg Intake: IV 2762.5 / 2762.5 1620 / 1620 100 / 100 Protonix Inj 80 MG In NS Inj 0 / 0 100 / 100 100 / 100 100 ML @ 10 mls/hr IV.CONT Q10H BRIANNA Rx#:[id number] KCl Inj 40 MEQ In D5W/LR Inj 1999 / 1999 1020 / 1020 000 ML @ 100 mls/hr IV.CONT . [id number] BRIANNA Rx#:[id number] Zosyn 4.5 GM Premix 4.5 gm In 300 / 300 200 / 200 100 ml @ 200 mls/hr IV.SIG Q6H BRIANNA Rx#:[id number] KCl 20 mEq Premix Inj 20 meq In 100 / 100 300 / 300 100 ml @ 50 mls/hr IV.SIG Q2H PRN Rx#:[id number] Vancomycin Inj 1,250 MG In NS 262.5 / 262.5 Inj 250 ML @ 250 mls/hr IV.SIG Q24H BRIANNA Rx#:[id number] Oral 0 / 0 0 / 0 Output: Urine 600 / 600 600 / 600 Gastric Drainage 200 / 200 Left Nare 200 / 200 Wound Drainage 0 / 0 Left Lower Anterior Abdomen 0 / 0 Other: Date of Last Bowel Movement 09/15/18 09/15/18 09/15/18 # Bowel Movements 0 - Routine Abdominal Exam Present: soft (non distended, incision well healing) - Urinary Catheter Management Indwelling Temp Sensing Catheter Cath placed during this visit: yes, but has since been removed by the nurse Reason for continuing: Decision to DC catheter Insertion date: 08/25/18 Insertion time: 14:20 Removal date: 08/29/18 Removal time: 12:30 Indwelling Urethral Catheter Cath placed during this visit: yes Urethral indwelling: No Reason for continuing: Hourly intake/output Insertion date: 09/06/18 Insertion time: 12:00 Results - Labs 09/16/18 05:16 09/16/18 05:16 Laboratory Results - last 24 hr 09/14/18 09/15/18 09/16/18 05:11 18:53 05:16 WBC RBC Hgb Hct MCV MCH MCHC RDW Plt Count MPV Sodium 148 H 150 H Potassium 3.0 L 3.6 Chloride 110 H 113 H Carbon Dioxide 32.7 H 31.7 Anion Gap 5 5 BUN 26 H 24 H Creatinine 1.18 1.13 Estimated GFR 59 L 62 L Random Glucose 154 H 137 H Hemoglobin A1c 6.3 H Calcium 8.5 8.7 Magnesium 2.1 Total Bilirubin 0.6 0.5 AST 20 21 ALT 26 25 Alkaline Phosphatase 62 62 Total Protein 4.6 L 4.8 L Albumin 1.5 L 1.5 L 09/16/18 05:16 WBC 10.8 RBC 2.87 L Hgb 9.3 L Hct 27.5 L MCV 95.9 MCH 32.4 MCHC 33.7 RDW 16.2 Plt Count 130 L MPV 8.8 Sodium Potassium Chloride Carbon Dioxide Anion Gap BUN Creatinine Estimated GFR Random Glucose Hemoglobin A1c Calcium Magnesium Total Bilirubin AST ALT Alkaline Phosphatase Total Protein Albumin - Imaging Imaging: ITS Impressions Abdomen/Bladder Ultrasound 08/25/18 00:00 CONCLUSION: 1. No evidence of hydronephrosis. 2. Bilateral renal cysts, mostly simple, with one cyst demonstrating homogeneous low level echoes, located in the midpole the left kidney and measuring 4 cm. Venous Doppler Study 08/25/18 00:00 CONCLUSION: 1. The study is negative for bilateral lower extremity deep venous thrombosis. Chest CT 09/05/18 00:00 CONCLUSION: 1. 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 2. Right lower lobe cavitary mass. 3. Probably benign left adrenal lesion Head CT 09/05/18 00:00 CONCLUSION: 1. No acute intracranial abnormalities. . Abdomen/Pelvis CT 09/07/18 00:00 CONCLUSION: 1. Status post recent abdominal surgery with free air throughout the abdomen. 2. Mild air-filled loops of small bowel suggestive of a postoperative ileus. 3. Otherwise no other significant changes are seen compared to the prior exam. Chest X-Ray 09/11/18 00:00 CONCLUSION: Slight improvement in the bilateral infiltrates. Abdomen X-Ray 09/16/18 00:00 CONCLUSION: Distended air-filled small bowel and colon. Decrease in severity of small bowel distention. 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 PT to ambulate blood thinner pt appears stable for medievac transport from surgical stand point
[2018-09-16] MEDS: Potassium Chloride Inj 40 MEQ in Dextrose 5% in Water Inj 1,000 ML IV.CONT SCH ×2 (12:07)
--- NOTE | 2018-09-16 12:19 | P.PN ---
Subjective Interval history: he is doing better. has NG in. on O2 4 L.NO chest pain or vomiting. Physical Exam Vital signs: Vital Signs 09/15/18 13:00 09/15/18 14:00 09/15/18 15:00 Temperature Pulse Rate 94 H 93 H 99 H Respiratory Rate 20 21 24 Blood Pressure 127/70 120/72 Pulse Oximetry 96 97 94 L 09/15/18 16:00 09/15/18 16:55 09/15/18 17:00 Temperature 97.6 F Pulse Rate 89 91 H 86 Respiratory Rate 18 19 19 Blood Pressure 107/64 Pulse Oximetry 97 98 98 09/15/18 17:19 09/15/18 18:00 09/15/18 19:00 Temperature Pulse Rate 93 H 84 88 Respiratory Rate 19 18 Blood Pressure 122/74 Pulse Oximetry 93 L 09/15/18 20:00 09/15/18 20:04 09/15/18 20:20 Temperature 98.5 F Pulse Rate 85 93 H 87 Respiratory Rate 20 22 20 Blood Pressure 128/84 Pulse Oximetry 94 L 94 L 09/15/18 20:35 09/15/18 21:00 09/15/18 22:00 Temperature Pulse Rate 97 H 87 Respiratory Rate 22 17 Blood Pressure 122/84 117/96 H Pulse Oximetry 93 L 92 L 91 L 09/15/18 23:00 09/16/18 00:00 09/16/18 01:00 Temperature 98 F Pulse Rate 94 H 96 H 96 H Respiratory Rate 19 22 21 Blood Pressure 119/88 112/71 114/75 Pulse Oximetry 76 L 90 L 93 L 09/16/18 02:00 09/16/18 02:44 09/16/18 03:00 Temperature Pulse Rate 90 90 97 H Respiratory Rate 20 24 20 Blood Pressure 109/65 109/65 Pulse Oximetry 98 100 09/16/18 04:00 09/16/18 05:00 09/16/18 06:00 Temperature 98.1 F Pulse Rate 96 H 100 H 96 H Respiratory Rate 23 24 20 Blood Pressure 103/64 110/68 108/66 Pulse Oximetry 100 99 95 09/16/18 08:00 09/16/18 08:40 09/16/18 10:00 Temperature Pulse Rate 98 H 98 H 96 H Respiratory Rate 22 Blood Pressure Pulse Oximetry 99 100 Intake & Output 12/06/2509/16/18 09/16/18 18:59 06:59 18:59 Intake Total 2762.5 / 2762.5 1620 / 1620 100 / 100 Output Total 600 / 600 800 / 800 Balance 2162.5 / 2162.5 820 / 820 100 / 100 Weight 106.2 kg Intake: IV 2762.5 / 2762.5 1620 / 1620 100 / 100 Protonix Inj 80 MG In NS Inj 0 / 0 100 / 100 100 / 100 100 ML @ 10 mls/hr IV.CONT Q10H BRIANNA Rx#:[id number] KCl Inj 40 MEQ In D5W/LR Inj , 1999 / 1999 1020 / 1020 000 ML @ 100 mls/hr IV.CONT . [id number] BRIANNA Rx#:[id number] Zosyn 4.5 GM Premix 4.5 gm In 300 / 300 200 / 200 100 ml @ 200 mls/hr IV.SIG Q6H BRIANNA Rx#:[id number] KCl 20 mEq Premix Inj 20 meq In 100 / 100 300 / 300 100 ml @ 50 mls/hr IV.SIG Q2H PRN Rx#:[id number] Vancomycin Inj 1,250 MG In NS 262.5 / 262.5 Inj 250 ML @ 250 mls/hr IV.SIG Q24H BRIANNA Rx#:[id number] Oral 0 / 0 0 / 0 Output: Urine 600 / 600 600 / 600 Gastric Drainage 200 / 200 Left Nare 200 / 200 Wound Drainage 0 / 0 Left Lower Anterior Abdomen 0 / 0 Other: Date of Last Bowel Movement 09/15/18 09/15/18 09/15/18 # Bowel Movements 0 Narrative: GENERAL: Elderly obese male alert IN no distress. SKIN: Warm and dry. MULTIPLE HERPETIC LESIONS ON LIPS AND CHIN AREA HEAD: Atraumatic. Normocephalic. EYES: Pupils equal and round. No scleral icterus. No injection or drainage. ENT: No nasal bleeding or discharge. Mucous membranes pink and moist. CHEST: Occ Basal crackles and wheeze. Abdomen: soft, non tender. Extremities with mild edema. - Urinary Catheter Management Indwelling Temp Sensing Catheter Cath placed during this visit: yes, but has since been removed by the nurse Reason for continuing: Decision to DC catheter Insertion date: 08/25/18 Insertion time: 14:20 Removal date: 08/29/18 Removal time: 12:30 Indwelling Urethral Catheter Cath placed during this visit: yes Urethral indwelling: No Reason for continuing: Hourly intake/output Insertion date: 09/06/18 Insertion time: 12:00 Results - Labs CBC & Chem 7: 09/16/18 05:16 09/16/18 05:16 Laboratory Results - last 24 hr 09/14/18 09/15/18 09/16/18 05:11 18:53 05:16 WBC RBC Hgb Hct MCV MCH MCHC RDW Plt Count MPV Sodium 148 H 150 H Potassium 3.0 L 3.6 Chloride 110 H 113 H Carbon Dioxide 32.7 H 31.7 Anion Gap 5 5 BUN 26 H 24 H Creatinine 1.18 1.13 Estimated GFR 59 L 62 L Random Glucose 154 H 137 H Hemoglobin A1c 6.3 H Calcium 8.5 8.7 Magnesium 2.1 Total Bilirubin 0.6 0.5 AST 20 21 ALT 26 25 Alkaline Phosphatase 62 62 Total Protein 4.6 L 4.8 L Albumin 1.5 L 1.5 L 09/16/18 05:16 WBC 10.8 RBC 2.87 L Hgb 9.3 L Hct 27.5 L MCV 95.9 MCH 32.4 MCHC 33.7 RDW 16.2 Plt Count 130 L MPV 8.8 Sodium Potassium Chloride Carbon Dioxide Anion Gap BUN Creatinine Estimated GFR Random Glucose Hemoglobin A1c Calcium Magnesium Total Bilirubin AST ALT Alkaline Phosphatase Total Protein Albumin - Imaging Impressions Abdomen X-Ray 09/16/18 00:00 CONCLUSION: Distended air-filled small bowel and colon. Decrease in severity of small bowel distention. - Procedures Date of procedure: 08/25/18 Pre-op diagnosis: Acute respiratory failure Post-op diagnosis: same Procedure: DATE: 08/25/2018 PROCEDURE: Orotracheal intubation INDICATION: Pneumonia/respiratory failure acute DETAILS OF PROCEDURE The patient was placed in optimal position and preoxygenated with 100% FiO2 via bag valve mask. At the start oxygen saturation was 98 %. The patient was administered 20 mg etomidate IV and 50 mg rocuronium IV. I entered the oropharynx with a size 4 laryngoscope blade and obtained a grade 2 view of the airway. On single attempt a size 8.0 cuffed endotracheal tube was passed through the vocal cords. Correct tube location was confirmed with end tidal CO2 detector and by auscultating over bilateral lung joel. The endotracheal tube was secured with adhesive tape at a depth of 24 cm at the lips. The patient was connected to the ventilator. The patient tolerated the procedure well without any apparent complications. Oxygen saturations were maintained greater than 95% all times. STAT chest x-ray pending at time of dictation. Documented By: Ford Miguel MD 08/25/18 Date of procedure: 08/25/18 Pre-op diagnosis: Acute respiratory failure/poor IV access Post-op diagnosis: same Procedure: DATE: 08/25/2018 CENTRAL LINE PLACEMENT: Left internal jugular vein. Ultrasound-guided INDICATION: Central venous access CONSENT Informed consent for procedure was obtained from competent patient prior to intubation. DESCRIPTION OF THE PROCEDURE The patient was placed in supine position. The skin was cleansed with Chloraprep. Additional barrier precautions included large sterile drape, sterile gloves, sterile gown, face mask, and hat. 1 % lidocaine was used for local anesthesia. Under direct ultrasound guidance and on initial attempt, the vein was accessed with an introducer needle. The guide wire was advanced and the tract was dilated. Using Seldinger technique a 7 Omani 20 cm antimicrobial coated triple-lumen catheter was advanced to a depth of 20 centimeters. The guide wire was removed. All ports had good return of dark venous blood and flushed easily with saline. The central line was secured with 2.0 silk. A sterile dressing with antibiotic disc was applied. StatLock did not adhere to skin ESTIMATED BLOOD LOSS: Minimal COMPLICATIONS: No apparent complications. STAT chest x-ray pending at time of dictation Documented By: Ford Miguel MD Date of procedure: 08/25/18 Pre-op diagnosis: Hemodynamic instability Post-op diagnosis: same Procedure: DATE: 08/25/2018 PROCEDURE: Right femoral arterial catheter placement INDICATION: Hemodynamic access DETAILS OF PROCEDURE The patient was placed in supine position. The skin was cleansed with Chloraprep. Additional barrier precautions included large sterile drape, sterile gloves, sterile gown, face mask, and hat. 1% lidocaine was used for local anesthesia. Under direct ultrasound guidance and on the initial attempt, the artery was accessed with an introducer needle. The guide wire was advanced. Using Seldinger technique 20 gauge arterial catheter was placed. The guide wire was removed. The catheter was connected to a transducer line and flushed with saline. The video monitor displayed normal arterial wave forms. The catheter was secured with 2-0 silk. A sterile dressing with antibiotic disc was applied. ESTIMATED BLOOD LOSS: minimal COMPLICATIONS: None Documented By: Ford Miguel MD DATE OF OPERATION: 09/06/2018 PREOPERATIVE DIAGNOSIS: Perforation of viscus. POSTOPERATIVE DIAGNOSIS: Perforation of viscus, microperforation of cecum with cecal volvulus. PROCEDURE PERFORMED: 1. Diagnostic laparoscopy. 2. Open exploratory laparotomy. 3. Right hemicolectomy. 4. Primary anastomosis. 5. TANG placement. 6. Washout. SURGEON: Lul Richards MD ROLL FORMER: Theresa. ANESTHESIA: GETA. IV FLUIDS: See anesthesia sheet. ESTIMATED BLOOD LOSS: 100 mL. DRAINS: A 19-Omani Justin drain. COMPLICATIONS: None. WOUND CLASSIFICATION: Contaminated. FINDINGS: Serous intraperitoneal fluid, massive free air, microperforation of cecum with cecal volvulus. SPECIMENS: Right colon. HISTORY OF PRESENT ILLNESS: The patient is an 83-year-old male who presented with multiple medical issues, lung dysfunction and development of a perforation of viscus. The patient planned for emergency operative intervention. DETAILS OF PROCEDURE: The patient was taken to the operative suite, placed in a supine position. She was prepped and draped in the usual sterile fashion after induction of general endotracheal anesthesia. Local anesthetic was injected. Stab doug incision was made. Abdomen is entered with a 5 mm port. Three other ports were placed, including 1 right upper quadrant, 1 right lower quadrant and a left upper quadrant port, 5 mm. Exploration had begun and there was noted to be some serosanguineous fluid throughout the abdomen. This was not overly purulent or did not appear to be significantly succuss. The suction irrigation was done. The examination of the stomach noted no abnormality and noted to be viable and healthy. The small bowel was run from ligament of Treitz to the terminal ileum without evidence of abnormality. The colon was then examined. There was noted to be a volvulus of cecum with a small microperforation and a small necrotic area. At this point, decision was made for an open exploratory laparotomy. The midline was extended with a 15 blade. Further dissection done with electro Bovie electrocautery. Bookwalter retractor was placed. Glen wound protector was also placed. Self-retaining retractors were placed for abdominal exposure. The white line of Toldt was mobilized to mobilize for the cecum, ileocecal valve and terminal ileum. Proximal to the ileocecal valve a 5 cm, a point was transected with a blue DB stapler. Harmonic was used to transect the base of the mesentery and for hemostasis. Proximally, the colon was mobilized. The hepatic flexure was further mobilized as well and the colon was transected proximal to the area of torsion and perforation. Further dissection and ligation of vessels was done with Harmonic scalpel. The colonic specimen, right hemicolon, was removed and placed in pathology. The abdomen was then thoroughly irrigated with warm normal saline. The patient was noted not to be on any pressor support and very stable at the time and had received no transfusion, other than the Kcentra for coagulant Eliquis reversal. The decision at this point was to do primary anastomosis. This was done in a stapled manner. The antimesenteric border and the tinea were placed opposing each other; 3-0 silk sutures were used for this. Small enterotomies were made in both opposing ends and an DB-75 blue load stapler was used to create a [id number] layer. The incisions were grasped with Allis clamps and then a TX 60 was used to transect and staple this closure. The staple line was oversewn with 3-0 silk Lembert sutures. Mesenteric defect was also closed. A crotch stitch was placed. A palpable patent ring was noted and completely viable. The abdomen was again washed out with a liter of warm saline. Omentum was placed back in its anatomical position. A 19-Omani Justin drain was placed through a separate stab incision in the left lower quadrant and placed in the pelvis and along the right gutter. The abdomen was closed with looped PDS x 2 in a running fashion followed by misha and a TANG dressing was placed. 2-0 nylon used to secure 19-Omani Justin drain in place. The patient tolerated the procedure well. There were no intraoperative complications. All lap and instrument counts were correct at the end of the procedure. The patient was taken to ICU in critical condition. Lul Richards MD (1) Perforated abdominal viscus (2) Cecal volvulus - Postoperative Diagnosis (1) Perforated abdominal viscus Procedure: dx lap,ex lap right hemicolectomy, primary anastomsis, tang Surgeon: Lul Richards MD Estimated blood loss (mL): 15 Pathology: none sent Operation and Findings: free air Documented By: Lul Richards MD 09/06/18 1158 Assessment and Plan - Assessment (1) COPD (chronic obstructive pulmonary disease) Code(s): J44.9 - Chronic obstructive pulmonary disease, unspecified Status: Acute (2) Severe sepsis Code(s): A41.9 - Sepsis, unspecified organism; R65.20 - Severe sepsis without septic shock Status: Acute (3) Pneumonia Code(s): J18.9 - Pneumonia, unspecified organism Status: Acute (4) Acute respiratory failure with hypoxia and hypercapnia Code(s): J96.01 - Acute respiratory failure with hypoxia; J96.02 - Acute respiratory failure with hypercapnia Status: Acute (5) Lactic acidosis Code(s): E87.2 - Acidosis Status: Acute (6) Atrial fibrillation with rapid ventricular response Code(s): I48.91 - Unspecified atrial fibrillation Status: Acute (7) Acute kidney injury Code(s): N17.9 - Acute kidney failure, unspecified Status: Acute (8) Chronic steroid use Status: Chronic (9) Hypertension Code(s): I10 - Essential (primary) hypertension Status: Chronic (10) Pulmonary cavitary lesion Code(s): J98.4 - Other disorders of lung Status: Acute (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 Cont on Home CPAP ,FIO2 30 % at HS 2. Use O2 N/C 3 L daytime 3. Duoneb nebs tid PRN 4. wishes to transfer Patient to hospital up [place]. 5. Continue antibiotics per ID . 6. EzPAP with Nebs qid. 7. Continue Eliquis 5 mg BID. 8. Cont Breo 200/25 Mcg, 1 puff daily 9. PT evaluation for activity 10. NG tube to gravity. (3) Pneumonia Qualifiers: Pneumonia type: due to unspecified organism Laterality: bilateral Lung location: unspecified part of lung Qualified Code(s): J18.9 - Pneumonia, unspecified organism (9) Hypertension Qualifiers: Hypertension type: essential hypertension Qualified Code(s): I10 - Essential (primary) hypertension
--- NOTE | 2018-09-16 14:40 | P.PNCC ---
Subjective Subjective Remarks/Hospital Course: This is an 83-year-old male. Date of admission 08/25/2018. Past medical includes atrial fibrillation with history of cardioversion, chronic apixaban use, hypertension, hyperlipidemia, trigeminal neuralgia/hard of hearing : Bilateral hearing aids. For the past 4 days, patient been increasing short of breath increased malaise. Denies any sick contacts or recent travels. Unknown influenza status. Patient is to [facility] with worsening shortness of breath. Complains of pleuritic and musculoskeletal chest pain. Patient also has a prior history of tobacco abuse times 50 years quit 15 years ago. Patient called EMS for evaluation due to acute shortness of breath. Upon arrival, patient was noted to be in a rapid heart rate in the 150s. Patient was given acute bronchodilator therapy and started on a lidocaine drip for possible V. tach. Patient was transported to [facility] for further evaluation treatment. Upon arrival, patient was noted to be in A. fib with RVR. Chest x-ray revealed bilateral infiltrates right greater than left. Patient was placed on BiPAP therapy with some improvement. Patient received ceftriaxone and azithromycin. 3 L normal saline. Patient remained somewhat hypotensive. Patient a lactate of 5.1. Troponin 0 0.27. Patient was transported to [facility]. On arrival, patient increasingly short of breath. Required intubation with central line placement and arterial line placement. SUBJECTIVE: 08/26: Currently resting in bed intubated requiring mechanical ventilation. Arousable and does follow commands but heart rate much better controlled rate. No acute findings overnight. Leukocytosis slightly worsened. Potassium replaced currently. Arousable and does follow commands. at bedside and updated Wilma. 08/27: Patient on low-dose (2 mcg) levo overnight, off since this morning. Low urine output over the past 24 hours. HR well-controlled in 70s-80s. 08/28: Patient tolerated PST yesterday afternoon, placed back on AC overnight to rest. Urine output improved with lasix/ Chavez was noted to be clogged with sediment and replaced. No new issues. 08/29: Extubated yesterday, on bipap through the afternoon/ evening (patient is on nocturnal CPAP at home). BP persistently elevated, now on cardene gtt. 08/30: On BiPAP overnight. Currently on facemask O2. Sitting up in chair, not in any acute distress. 08/31: Critical care reconsulted this morning due to free air noted under the diaphragm on routine chest x-ray. When I evaluated the patient he was resting in bed on nasal cannula. No hypotension overnight. He did have a BM yesterday he has been having vague abdominal discomfort. He appears more lethargic and delirious yesterday according to his . Patient was drowsy but easily arousable however appeared encephalopathic. He did not appear to be in any acute distress however on examination of his abdomen did grimace some guarding. He did receive Eliquis this morning. On review of CT done on 09/05 patient appears to have free intraperitoneal air. This was discussed with Dr. Richards. Plan was made for exploratory laparotomy Maurice. I did order [facility] for Eliquis reversal per discussion with Dr. Richards. Also spoke with patient's regarding concern regarding perforated viscus and need for emergency surgery she voiced understanding. Patient is on Unasyn and being followed by ID. Ordered normal saline IV fluids and made patient n.p.o. 09/07: Extubated yesterday but breathing a little labored this morning. Respiratory rate around 30 with some accessory muscle use. Lung joel generally clear with a few scattered rhonchi on the right side. No wheezing. No crackles. We tried BiPAP noninvasive ventilation and he was much more comfortable and promptly went to sleep. Although gas exchange is acceptable his work of breathing is clearly excessive without support. 09/08: Extubated 48 hours ago. Comfortable on BiPAP noninvasive ventilation but labored when off. Fluid balance not particularly problematic, but most of respiratory difficulty appears to be the mobilization of secretions. 09/09: Resting comfortably on nasal cannula. NG tube clamped this morning. 09/14: Critical care reconsulted by Dr. Clement Carpenter as patient developed nausea vomiting and diarrhea on the floor yesterday with inability to keep anything down as well as shortness of breath. KUB shows ileus. Patient has been hypokalemic for the last few days which may be contributing to the ileus. I evaluated the patient immediately on his arrival to the ICU. He was slightly tachypneic on nasal cannula 3-4 L/min. He was maintaining his O2 sats. He did not appear to be in severe distress however was tachypneic. He denied any significant abdominal discomfort chest pain. NG tube was placed and coffee- ground gastric aspirate was suctioned out about 700 cc. He underwent a right hemicolectomy for perforated cecum on 08/[address] Richards and was subsequently extubated and transferred to the floor and was being followed by the hospitalist service and Dr. Richards. History was obtained by reviewing records and discussion with Dr. Carpenter and nursing staff. 09/15: Lying in bed no acute distress. NG tube in place. Clinically ileus seems to be improving. having BM. K+ getting replaced 09/16: Clinically improving, improving ileus. Having bowel movements. White count has normalized. Sodium at 150. Discussed with Dr. Richards. Breathing comfortably Objective Vital Signs / I&O: Vital Signs 09/15/18 15:00 09/15/18 16:00 09/15/18 16:55 Temperature 97.6 F Pulse Rate 99 H 89 91 H Respiratory Rate 24 18 19 Blood Pressure 107/64 Pulse Oximetry 94 L 97 98 09/15/18 17:00 09/15/18 17:19 09/15/18 18:00 Temperature Pulse Rate 86 93 H 84 Respiratory Rate 19 19 Blood Pressure Pulse Oximetry 98 09/15/18 19:00 09/15/18 20:00 09/15/18 20:04 Temperature 98.5 F Pulse Rate 88 85 93 H Respiratory Rate 18 20 22 Blood Pressure 122/74 128/84 Pulse Oximetry 93 L 94 L 09/15/18 20:20 09/15/18 20:35 09/15/18 21:00 Temperature Pulse Rate 87 97 H Respiratory Rate 20 22 Blood Pressure 122/84 Pulse Oximetry 94 L 93 L 92 L 09/15/18 22:00 09/15/18 23:00 09/16/18 00:00 Temperature 98 F Pulse Rate 87 94 H 96 H Respiratory Rate 17 19 22 Blood Pressure 117/96 H 119/88 112/71 Pulse Oximetry 91 L 76 L 90 L 09/16/18 01:00 09/16/18 02:00 09/16/18 02:44 Temperature Pulse Rate 96 H 90 90 Respiratory Rate 21 20 24 Blood Pressure 114/75 109/65 Pulse Oximetry 93 L 98 09/16/18 03:00 09/16/18 04:00 09/16/18 05:00 Temperature 98.1 F Pulse Rate 97 H 96 H 100 H Respiratory Rate 20 23 24 Blood Pressure 109/65 103/64 110/68 Pulse Oximetry 100 100 99 09/16/18 06:00 09/16/18 06:34 09/16/18 07:00 Temperature Pulse Rate 96 H 96 H 98 H Respiratory Rate 20 23 22 Blood Pressure 108/66 110/64 Pulse Oximetry 95 99 99 09/16/18 08:00 09/16/18 08:40 09/16/18 09:00 Temperature 98 F Pulse Rate 91 H 98 H 95 H Respiratory Rate 20 22 30 H Blood Pressure Pulse Oximetry 100 100 97 09/16/18 09:08 09/16/18 10:00 09/16/18 11:00 Temperature Pulse Rate 96 H 98 H 97 H Respiratory Rate 26 H 29 H 22 Blood Pressure 117/68 Pulse Oximetry 99 90 L 94 L 09/16/18 11:13 09/16/18 11:18 09/16/18 11:24 Temperature Pulse Rate 97 H 115 H 123 H Respiratory Rate 26 H 15 47 H Blood Pressure 122/84 133/82 134/74 Pulse Oximetry 92 L 83 L 09/16/18 12:00 09/16/18 12:54 Temperature Pulse Rate 98 H 91 H Respiratory Rate 26 H Blood Pressure Pulse Oximetry 95 Intake & Output 09/15/18 09/16/18 09/16/18 18:59 06:59 18:59 Intake Total 2762.5 / 2762.5 1620 / 1620 100 / 100 Output Total 600 / 600 800 / 800 Balance 2162.5 / 2162.5 820 / 820 100 / 100 Weight 106.2 kg Intake: IV 2762.5 / 2762.5 1620 / 1620 100 / 100 Protonix Inj 80 MG In NS Inj 0 / 0 100 / 100 100 / 100 100 ML @ 10 mls/hr IV.CONT Q10H BRIANNA Rx#:[id number] KCl Inj 40 MEQ In D5W/LR Inj 1999 1020 / 1020 000 ML @ 100 mls/hr IV.CONT . [id number] BRIANNA Rx#:[id number] Zosyn 4.5 GM Premix 4.5 gm In 300 / 300 200 / 200 100 ml @ 200 mls/hr IV.SIG Q6H BRIANNA Rx#:[id number] KCl 20 mEq Premix Inj 20 meq In 100 / 100 300 / 300 100 ml @ 50 mls/hr IV.SIG Q2H PRN Rx#:[id number] Vancomycin Inj 1,250 MG In NS 262.5 / 262.5 Inj 250 ML @ 250 mls/hr IV.SIG Q24H BRIANNA Rx#:[id number] Oral 0 / 0 0 / 0 Output: Urine 600 / 600 600 / 600 Gastric Drainage 200 / 200 Left Nare 200 / 200 Wound Drainage 0 / 0 Left Lower Anterior Abdomen 0 / 0 Other: Date of Last Bowel Movement 09/15/18 09/15/18 09/15/18 # Bowel Movements 0 Result Diagrams: 09/16/18 05:16 09/16/18 05:16 Objective Remarks: GENERAL: Elderly gentleman, lying in bed, on nasal cannula SKIN: Warm and dry. HEENT: Perioral herpetic lesions. Airway widely patent. Trachea midline. CARDIOVASCULAR: Irregular, irregular rate. No JVD RESPIRATORY: Air entry decreased bilaterally at bases, scattered rhonchi, no wheezing GASTROINTESTINAL: Abdomen soft, incision site with misha in place, clean dry and intact. Bowel sounds sluggish, no guarding or tenderness MUSCULOSKELETAL: 1+ pitting edema in all extremities NEUROLOGICAL: Awake alert oriented, moving both upper extremities with purpose, grossly nonfocal. Assessment and Plan - Problem List (1) Acute respiratory failure with hypoxia and hypercapnia Code(s): J96.01 - Acute respiratory failure with hypoxia; J96.02 - Acute respiratory failure with hypercapnia Status: Acute (2) Hyponatremia Code(s): E87.1 - Hypo-osmolality and hyponatremia Status: Acute (3) Lactic acidosis Code(s): E87.2 - Acidosis Status: Acute (4) Atrial fibrillation with rapid ventricular response Code(s): I48.91 - Unspecified atrial fibrillation Status: Acute (5) Acute kidney injury Code(s): N17.9 - Acute kidney failure, unspecified Status: Acute (6) Chronic steroid use Status: Chronic (7) Hypertension Code(s): I10 - Essential (primary) hypertension Status: Chronic (8) Hyperlipidemia Code(s): E78.5 - Hyperlipidemia, unspecified Status: Chronic (9) Hard of hearing Code(s): H91.90 - Unspecified hearing loss, unspecified ear Status: Chronic (10) Trigeminal neuralgia Code(s): G50.0 - Trigeminal neuralgia Status: Chronic (11) Chronic anticoagulation Code(s): Z79.01 - roasterman (current) use of anticoagulants Status: Chronic (12) Leukocytosis Code(s): D72.829 - Elevated white blood cell count, unspecified Status: Acute (13) Elevated troponin Code(s): R74.8 - Abnormal levels of other serum enzymes Status: Acute (14) Hypoalbuminemia Code(s): E88.09 - Other disorders of plasma-protein metabolism, not elsewhere classified Status: Acute - Assessment and Plan Plan: Neuro/Psych: Hard of hearing Acetaminophen 650 mg by tube every 6 hours as needed fever Delirium precautions (lights on/ shades up during the day, limit nighttime disruptions, frequent reorientation, use hearing aids) CV: Atrial fibrillation currently rate controlled Elevated troponin History of essential hypertension Hyperlipidemia Lactic acidosis Echo: EF 45%, RV enlargement/ dysfunction, PAP 38 mm Hg Continue beta-tristian Hold Eliquis in view of coffee-ground NG aspirate Trop 0.27 on admission, most recent 0.08, no longer trending Resp: Acute respiratory failure secondary to community acquired pneumonia-resolved History of COPD Possible amiodarone lung toxicity Albuterol/ipratropium aerosols every 4 hours with albuterol aerosols every 2 hours as needed dyspnea Continue home fluticasone/Vilanterol 200/25 1 inhalation daily Continue nocturnal CPAP/ PRN BiPAP Pulmonology following, GI: 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 Protonix 8 mg/h in view of coffee-ground NG aspirate. Hemoglobin appears stable NG be placed to low intermittent wall suction. stool for C. difficile Negative Renal/: WESLEY Strict intake output, monitor and replete elect lites, follow BUN/creatinine. IV hydration with LR plus KCl at 100 cc an hour, changed to D5W with potassium due to hypernatremia and hypokalemia. Renal ultrasound - bilateral renal cyst. Possible hemorrhagic left renal cyst Avoid nephrotoxic medication Endo: Acute hyperglycemia Chronic steroid use Low TSH SSI TSH was 0.094, normal T4, T3 low-- would recheck in 4 weeks after critical illness has resolved Heme: Monitor CBC. Eliquis will be held due to coffee-ground NG aspirate. ID: Community acquired pneumonia Perforated viscus Blood cultures from 08/25 grew Haemophilus influenza sensitive to penicillins/ cephalosporins, s/p ceftriaxone Repeat blood cultures sent on 08/27 negative thus far Sputum and urine cultures no growth to date Flu and MRSA swabs negative Legionella and pneumococcus negative ID following for antibiotic management. Currently on IV Zosyn/vancomycin. p.o. fluconazole to IV due to ileus with inability to tolerate p.o. FEN: Hypokalemia ICU electrolyte protocol Prophylaxis -GI -pantoprazole -DVT -SCD/apixaban will be held Level 2 Consult [facility] to assume care in am 09/17/18 (7) Hypertension Qualifiers: Hypertension type: essential hypertension Qualified Code(s): I10 - Essential (primary) hypertension (8) Hyperlipidemia Qualifiers: Hyperlipidemia type: unspecified Qualified Code(s): E78.5 - Hyperlipidemia, unspecified (9) Hard of hearing Qualifiers: Hearing loss type: unspecified Laterality: bilateral Qualified Code(s): H91.93 - Unspecified hearing loss, bilateral (12) Leukocytosis Qualifiers: Leukocytosis type: unspecified Qualified Code(s): D72.829 - Elevated white blood cell count, unspecified
[2018-09-16] MEDS: predniSONE 5 MG Tablet PO SCH (17:44)
[2018-09-16] MEDS: Baclofen 10 MG Tablet NG/OG PRN (23:06)
[2018-09-16] MEDS: Metoprolol Tartrate 25 MG Tablet PO SCH (23:15)
[2018-09-17] MEDS: Piperacil/Tazo 4.5 GM Premix 4.5 GM/100 ML BAG IV.SIG SCH ×3 (01:56→10:52)
[2018-09-17] MEDS: Potassium Chloride Inj 40 MEQ in Dextrose 5% in Water Inj 1,000 ML IV.CONT SCH ×8 (01:56→17:49)
[2018-09-17] MEDS: Oral Hygiene Kit OROPHARYNG SCH ×4 (01:57→16:17)
[2018-09-17] MEDS: Pantoprazole Inj 80 MG in Sodium Chlor 0.9% Inj 100 ML IV.CONT SCH ×2 (05:19→14:59)
[2018-09-17] MEDS: Artificial Tears Opth Drops 15 ML Bottle EACH EYE SCH ×3 (06:10→22:16)
[2018-09-17 07:57] LABS: Hematocrit 26.1 % (39.0-51.0); Hemoglobin 8.5 gm/dL (13.0-17.0); Mean Corpuscular HGB Conc 32.6 % (32.0-36.0); Mean Corpuscular Hemoglobin 32.2 pg (27.0-34.0); Mean Corpuscular Volume 98.7 fL (80.0-100.0); Mean Platelet Volume 8.6 fL (7.0-11.0); Platelet Count 126 th/mm3 (150-450); Red Blood Count 2.64 mil/mm3 (4.50-5.90); Red Cell Distribution Width 17.2 % (11.6-17.2); White Blood Count 9.7 th/mm3 (4.0-11.0)
[2018-09-17] MEDS: Chlorhexidine 0.12% Oral Kit 15 ML UDC OROPHARYNG SCH ×2 (08:44→22:15)
[2018-09-17] MEDS: Lactobacillus Acidophilus/L. Spores Tablet PO SCH ×2 (08:48→22:14)
[2018-09-17] MEDS: Senna/Docusate Sodium 8.6/50 MG Tablet PO SCH ×2 (08:48→22:15)
[2018-09-17] MEDS: Metoprolol Tartrate 25 MG Tablet PO SCH ×2 (08:48→22:14)
[2018-09-17] MEDS ORDERED: Pharmacy Ordered Lab Info OTHER ONE (11:45)
[2018-09-17] MEDS: Vancomycin Inj 1,250 MG in Sodium Chlor 0.9% Inj 250 ML IV.SIG SCH (12:07)
[2018-09-17 12:28] LABS: Alanine Aminotransferase 27 U/L (12-78); Albumin 1.5 g/dL (3.4-5.0); Anion Gap 5 meq/L (5-15); Aspartate Aminotransferase 22 U/L (15-37); Blood Urea Nitrogen 21 mg/dL (7-18); Carbon Dioxide 31.1 meq/L (21.0-32.0); Chloride 111 meq/L (98-107); Glomerular Filtration Rate 61 mL/min (>89); Glucose,Random 148 mg/dL (74-106); Magnesium 1.9 mg/dL (1.5-2.5); Potassium 3.9 meq/L (3.5-5.1); Sodium 147 meq/L (136-145)
[2018-09-17 12:31] LABS: Alkaline Phosphatase 73 U/L (45-117); Total Protein 4.7 g/dL (6.4-8.2); Vancomycin,Trough 23.2 mcg/mL (5.0-10.0)
--- NOTE | 2018-09-17 14:13 | P.PNIM ---
Subjective Interval history: Follow up for respiratory failure, Pneumonia, ileus s/p hemicolectomy, [facility], HTN and Afib with RVR. Patient seen and examined laying in bed, family at bedside, patient stated he is feeling a lot better. Patient denies any nausea or vomiting, or any discomfort. Patient denies any fever or chills, denies any headache or dizziness, denies any chest pain. Patient complains of shortness of breath increased with exertion. Patient denies any fever or chills. in room. Dad wanted to bring home up [place]. States that [place] doctors are [place]. Physical Exam Vital signs: Vital Signs 09/16/18 13:53 09/16/18 14:00 09/16/18 15:00 Temperature Pulse Rate 94 H 94 H 99 H Respiratory Rate 28 H 24 24 Blood Pressure 126/70 120/63 111/75 Pulse Oximetry 92 L 94 L 93 L 09/16/18 16:00 09/16/18 16:21 09/16/18 17:00 Temperature 98 F Pulse Rate 94 H 108 H 98 H Respiratory Rate 22 25 H 25 H Blood Pressure 105/71 110/60 Pulse Oximetry 89 L 89 L 09/16/18 20:00 09/16/18 21:13 09/17/18 00:00 Temperature 97.6 F 97.6 F Pulse Rate 92 H 92 H 76 Respiratory Rate 20 18 20 Blood Pressure 132/62 107/70 Pulse Oximetry 99 98 09/17/18 00:12 09/17/18 04:00 09/17/18 04:06 Temperature 97.4 F L Pulse Rate 90 64 Respiratory Rate 20 27 H Blood Pressure 101/60 Pulse Oximetry 99 97 100 09/17/18 07:57 09/17/18 08:23 09/17/18 12:05 Temperature 97.4 F L Pulse Rate 55 L 99 H Respiratory Rate 14 24 18 Blood Pressure 100/63 Pulse Oximetry 97 97 98 09/17/18 12:10 09/17/18 13:14 Temperature 97.4 F L Pulse Rate 87 58 L Respiratory Rate 16 Blood Pressure 117/64 Pulse Oximetry 98 Intake & Output 09/16/18 09/17/18 09/17/18 18:59 06:59 18:59 Intake Total 1512.5 / 1512.5 1220 / 1220 200 / 200 Output Total 180 / 180 100 / 100 Balance 1332.5 / 1332.5 1220 / 1220 100 / 100 Intake: IV 662.5 / 662.5 1220 / 1220 200 / 200 Protonix Inj 80 MG In NS Inj 200 / 200 100 / 100 100 ML @ 10 mls/hr IV.CONT Q10H BRIANNA Rx#:[id number] KCl Inj 40 MEQ In D5W Inj 1,000 1020 / 1020 ML @ 100 mls/hr IV.CONT . [id number] BRIANNA Rx#:[id number] Zosyn 4.5 GM Premix 4.5 gm In 200 / 200 100 / 100 200 / 200 100 ml @ 200 mls/hr IV.SIG Q6H BRIANNA Rx#:[id number] Vancomycin Inj 1,250 MG In NS 262.5 / 262.5 Inj 250 ML @ 250 mls/hr IV.SIG Q24H BRIANNA Rx#:[id number] Oral 850 / 850 Output: Urine 100 / 100 Stool 50 / 50 Gastric Drainage 100 / 100 Left Nare 100 / 100 Wound Drainage 30 / 30 Left Lower Anterior Abdomen 30 / 30 Other: # Voids 5 1 # Incontinent Voids 3 Date of Last Bowel Movement 09/16/18 09/16/18 09/17/18 # Bowel Movements 1 1 1 Narrative: GENERAL: Well-developed, well-nourished, obese male in no apparent distress SKIN: Warm and dry. multiple lesions onn lips and chin HEAD: Atraumatic. Normocephalic. EYES: Pupils equal and round. No scleral icterus. No injection or drainage. ENT: No nasal bleeding or discharge. Mucous membranes pink and moist. NECK: Trachea midline. No JVD. CARDIOVASCULAR: Regular rate and rhythm. RESPIRATORY: No accessory muscle use. fine rhonchi and diminished to auscultation. Breath sounds equal bilaterally. On 3L O2 via NC GASTROINTESTINAL: Abdomen obese, soft, non-tender, nondistended. Mid abdominal incision with misha intact, healing well, left lower quadrant drain with minimal drainage MUSCULOSKELETAL: Extremities without clubbing, cyanosis. Bilateral lower extremity trace edema. No obvious deformities. NEUROLOGICAL: Awake and alert. No obvious cranial nerve deficits. Motor grossly within normal limits. Five out of 5 muscle strength in the arms and legs. Normal speech. PSYCHIATRIC: Appropriate mood and affect; insight and judgment normal. - Urinary Catheter Management Indwelling Temp Sensing Catheter Cath placed during this visit: yes, but has since been removed by the nurse Reason for continuing: Decision to DC catheter Insertion date: 08/25/18 Insertion time: 14:20 Removal date: 08/29/18 Removal time: 12:30 Indwelling Urethral Catheter Cath placed during this visit: yes Urethral indwelling: No Reason for continuing: Hourly intake/output Insertion date: 09/06/18 Insertion time: 12:00 Results - Labs CBC & Chem 7: 09/17/18 07:36 09/17/18 11:39 Laboratory Results - last 24 hr 09/17/18 09/17/18 07:36 11:39 WBC 9.7 RBC 2.64 L Hgb 8.5 L Hct 26.1 L MCV 98.7 MCH 32.2 MCHC 32.6 RDW 17.2 Plt Count 126 L MPV 8.6 Sodium 147 H Potassium 3.9 Chloride 111 H Carbon Dioxide 31.1 Anion Gap 5 BUN 21 H Creatinine 1.14 Estimated GFR 61 L Random Glucose 148 H Calcium 8.0 L Magnesium 1.9 Total Bilirubin 0.5 AST 22 ALT 27 Alkaline Phosphatase 73 Total Protein 4.7 L Albumin 1.5 L Vancomycin Trough 23.2 H - Procedures Date of procedure: 08/25/18 Pre-op diagnosis: Acute respiratory failure Post-op diagnosis: same Procedure: DATE: 08/25/2018 PROCEDURE: Orotracheal intubation INDICATION: Pneumonia/respiratory failure acute DETAILS OF PROCEDURE The patient was placed in optimal position and preoxygenated with 100% FiO2 via bag valve mask. At the start oxygen saturation was 98 %. The patient was administered 20 mg etomidate IV and 50 mg rocuronium IV. I entered the oropharynx with a size 4 laryngoscope blade and obtained a grade 2 view of the airway. On single attempt a size 8.0 cuffed endotracheal tube was passed through the vocal cords. Correct tube location was confirmed with end tidal CO2 detector and by auscultating over bilateral lung joel. The endotracheal tube was secured with adhesive tape at a depth of 24 cm at the lips. The patient was connected to the ventilator. The patient tolerated the procedure well without any apparent complications. Oxygen saturations were maintained greater than 95% all times. STAT chest x-ray pending at time of dictation. Documented By: Ford Miguel MD 08/25/18 Date of procedure: 08/25/18 Pre-op diagnosis: Acute respiratory failure/poor IV access Post-op diagnosis: same Procedure: DATE: 08/25/2018 CENTRAL LINE PLACEMENT: Left internal jugular vein. Ultrasound-guided INDICATION: Central venous access CONSENT Informed consent for procedure was obtained from competent patient prior to intubation. DESCRIPTION OF THE PROCEDURE The patient was placed in supine position. The skin was cleansed with Chloraprep. Additional barrier precautions included large sterile drape, sterile gloves, sterile gown, face mask, and hat. 1 % lidocaine was used for local anesthesia. Under direct ultrasound guidance and on initial attempt, the vein was accessed with an introducer needle. The guide wire was advanced and the tract was dilated. Using Seldinger technique a 7 Malawian 20 cm antimicrobial coated triple-lumen catheter was advanced to a depth of 20 centimeters. The guide wire was removed. All ports had good return of dark venous blood and flushed easily with saline. The central line was secured with 2.0 silk. A sterile dressing with antibiotic disc was applied. StatLock did not adhere to skin ESTIMATED BLOOD LOSS: Minimal COMPLICATIONS: No apparent complications. STAT chest x-ray pending at time of dictation Documented By: Ford Miguel MD Date of procedure: 08/25/18 Pre-op diagnosis: Hemodynamic instability Post-op diagnosis: same Procedure: DATE: 08/25/2018 PROCEDURE: Right femoral arterial catheter placement INDICATION: Hemodynamic access DETAILS OF PROCEDURE The patient was placed in supine position. The skin was cleansed with Chloraprep. Additional barrier precautions included large sterile drape, sterile gloves, sterile gown, face mask, and hat. 1% lidocaine was used for local anesthesia. Under direct ultrasound guidance and on the initial attempt, the artery was accessed with an introducer needle. The guide wire was advanced. Using Seldinger technique 20 gauge arterial catheter was placed. The guide wire was removed. The catheter was connected to a transducer line and flushed with saline. The video monitor displayed normal arterial wave forms. The catheter was secured with 2-0 silk. A sterile dressing with antibiotic disc was applied. ESTIMATED BLOOD LOSS: minimal COMPLICATIONS: None Documented By: Ford Miguel MD DATE OF OPERATION: 09/06/2018 PREOPERATIVE DIAGNOSIS: Perforation of viscus. POSTOPERATIVE DIAGNOSIS: Perforation of viscus, microperforation of cecum with cecal volvulus. PROCEDURE PERFORMED: 1. Diagnostic laparoscopy. 2. Open exploratory laparotomy. 3. Right hemicolectomy. 4. Primary anastomosis. 5. TANG placement. 6. Washout. SURGEON: Lul Richards MD EXPLOSIVES WORKER: Theresa. ANESTHESIA: GETA. IV FLUIDS: See anesthesia sheet. ESTIMATED BLOOD LOSS: 100 mL. DRAINS: A 19-Malawian Justin drain. COMPLICATIONS: None. WOUND CLASSIFICATION: Contaminated. FINDINGS: Serous intraperitoneal fluid, massive free air, microperforation of cecum with cecal volvulus. SPECIMENS: Right colon. HISTORY OF PRESENT ILLNESS: The patient is an 83-year-old male who presented with multiple medical issues, lung dysfunction and development of a perforation of viscus. The patient planned for emergency operative intervention. DETAILS OF PROCEDURE: The patient was taken to the operative suite, placed in a supine position. She was prepped and draped in the usual sterile fashion after induction of general endotracheal anesthesia. Local anesthetic was injected. Stab doug incision was made. Abdomen is entered with a 5 mm port. Three other ports were placed, including 1 right upper quadrant, 1 right lower quadrant and a left upper quadrant port, 5 mm. Exploration had begun and there was noted to be some serosanguineous fluid throughout the abdomen. This was not overly purulent or did not appear to be significantly succuss. The suction irrigation was done. The examination of the stomach noted no abnormality and noted to be viable and healthy. The small bowel was run from ligament of Treitz to the terminal ileum without evidence of abnormality. The colon was then examined. There was noted to be a volvulus of cecum with a small microperforation and a small necrotic area. At this point, decision was made for an open exploratory laparotomy. The midline was extended with a 15 blade. Further dissection done with electro Bovie electrocautery. Bookwalter retractor was placed. Glen wound protector was also placed. Self-retaining retractors were placed for abdominal exposure. The white line of Toldt was mobilized to mobilize for the cecum, ileocecal valve and terminal ileum. Proximal to the ileocecal valve a 5 cm, a point was transected with a blue DB stapler. Harmonic was used to transect the base of the mesentery and for hemostasis. Proximally, the colon was mobilized. The hepatic flexure was further mobilized as well and the colon was transected proximal to the area of torsion and perforation. Further dissection and ligation of vessels was done with Harmonic scalpel. The colonic specimen, right hemicolon, was removed and placed in pathology. The abdomen was then thoroughly irrigated with warm normal saline. The patient was noted not to be on any pressor support and very stable at the time and had received no transfusion, other than the Kcentra for coagulant Eliquis reversal. The decision at this point was to do primary anastomosis. This was done in a stapled manner. The antimesenteric border and the tinea were placed opposing each other; 3-0 silk sutures were used for this. Small enterotomies were made in both opposing ends and an DB-75 blue load stapler was used to create a [id number]-octbsey layer. The incisions were grasped with Allis clamps and then a TX 60 was used to transect and staple this closure. The staple line was oversewn with 3-0 silk Lembert sutures. Mesenteric defect was also closed. A crotch stitch was placed. A palpable patent ring was noted and completely viable. The abdomen was again washed out with a liter of warm saline. Omentum was placed back in its anatomical position. A 19-Malawian Justin drain was placed through a separate stab incision in the left lower quadrant and placed in the pelvis and along the right gutter. The abdomen was closed with looped PDS x 2 in a running fashion followed by misha and a TANG dressing was placed. 2-0 nylon used to secure 19-Malawian Justin drain in place. The patient tolerated the procedure well. There were no intraoperative complications. All lap and instrument counts were correct at the end of the procedure. The patient was taken to ICU in critical condition. Lul Richards MD (1) Perforated abdominal viscus (2) Cecal volvulus - Postoperative Diagnosis (1) Perforated abdominal viscus Procedure: dx lap,ex lap right hemicolectomy, primary anastomsis, tang Surgeon: Lul Richards MD Estimated blood loss (mL): 15 Pathology: none sent Operation and Findings: free air Documented By: Lul Richards MD 09/06/18 1158 Assessment and Plan - Assessment (1) COPD (chronic obstructive pulmonary disease) Code(s): J44.9 - Chronic obstructive pulmonary disease, unspecified Status: Acute (2) Severe sepsis Code(s): A41.9 - Sepsis, unspecified organism; R65.20 - Severe sepsis without septic shock Status: Acute (3) Pneumonia Code(s): J18.9 - Pneumonia, unspecified organism Status: Acute (4) Acute respiratory failure with hypoxia and hypercapnia Code(s): J96.01 - Acute respiratory failure with hypoxia; J96.02 - Acute respiratory failure with hypercapnia Status: Acute (5) Lactic acidosis Code(s): E87.2 - Acidosis Status: Acute (6) Atrial fibrillation with rapid ventricular response Code(s): I48.91 - Unspecified atrial fibrillation Status: Acute (7) Acute kidney injury Code(s): N17.9 - Acute kidney failure, unspecified Status: Acute (8) Chronic steroid use Status: Chronic (9) Hypertension Code(s): I10 - Essential (primary) hypertension Status: Chronic (10) Pulmonary cavitary lesion Code(s): J98.4 - Other disorders of lung Status: Acute (11) Status post colectomy Code(s): Z90.49 - Acquired absence of other specified parts of digestive tract Status: Acute (12) Atelectasis of both lungs Code(s): J98.11 - Atelectasis Status: Acute - Plan This is an 83-year-old male, with Past medical includes atrial fibrillation with history of cardioversion, chronic apixaban use, hypertension, hyperlipidemia, trigeminal neuralgia/hard of hearing: Bilateral hearing aids.admitted 08/25/2018 for increasing shortness of breath and malaise. Atrial fibrillation currently rate controlled Elevated troponin History of essential hypertension Hyperlipidemia Lactic acidosis -2D Echo on 09/07/18: LVEF 55-60, Mild concentric left ventricular hypertrophy, right ventricle mildly dilated, right ventricular systolic function mildly decreased. Trace mitral valve, aortic valve , tricuspid valve regurgitation. -Continue beta-tristian -Hold Eliquis in view of coffee-ground NG aspirate -Trop 0.27 on admission, most recent 0.08, no longer trending - No CP, some SOB, on O2 via NC -Rate controlled, BP controlled -monitor HR and BP -restart Eliquis, cleared with surgeon Community acquired pneumonia Perforated viscus -Blood cultures from 08/25 grew Haemophilus influenza sensitive to penicillins/ cephalosporins, s/p ceftriaxone -Repeat blood cultures sent on 08/27 negative -Sputum and urine cultures no growth to date -Flu and MRSA swabs negative -Legionella and pneumococcus negative -ID following for antibiotic management - Currently on IV Zosyn/vancomycin. p.o. fluconazole to IV due to ileus with inability to tolerate p.o. 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 -NG discontinued today per GI -stool for C. difficile Negative -follow CBC, trend Hemoglobin -cleared with General Surgery for transfer to [facility] via [facility] Hypokalemia -Strict intake output, monitor and replete elect lites, follow BUN/creatinine. -continue D5W with potassium for hypernatremia and hypokalemia. -Renal ultrasound - bilateral renal cyst. Possible hemorrhagic left renal cyst -Avoid nephrotoxic medication -follow renal indicis, replace electrolytes as needed Acute hyperglycemia Chronic steroid use Low TSH -monitor blood sugars, Accu-Checks AC and HS and vocer with SSI -TSH was 0.094, normal T4, T3 low-- would recheck in 4 weeks after critical illness has resolved Prophylaxis GI : pantoprazole DVT : SCD/ restart apixaban, cleared with surgeon Code Status: full code Discussed Condition With: patient, family/ and nurse/MDR Dr. Sheikh & Dr Richards Discharge Planning: Plan to discharge to [facility] via [facility] in 1-2 days. Licensed [employer] pls assist transfer. (3) Pneumonia Qualifiers: Pneumonia type: due to unspecified organism Laterality: bilateral Lung location: unspecified part of lung Qualified Code(s): J18.9 - Pneumonia, unspecified organism (9) Hypertension Qualifiers: Hypertension type: essential hypertension Qualified Code(s): I10 - Essential (primary) hypertension
[2018-09-17] MEDS ORDERED: predniSONE 5 MG Tablet PO SCH (16:00)
--- NOTE | 2018-09-17 16:07 | P.PNNP ---
Subjective Interval history: Patient was seen, no distress, stated he feels better today. Hypernatremia and hypokalemia have improved. <Steven Limon - Last Filed: 09/17/18 16:44> Physical Exam Vital signs: Vital Signs 09/16/18 16:21 09/16/18 17:00 09/16/18 20:00 Temperature 97.6 F Pulse Rate 108 H 98 H 92 H Respiratory Rate 25 H 25 H 20 Blood Pressure 110/60 132/62 Pulse Oximetry 89 L 99 09/16/18 21:13 09/17/18 00:00 09/17/18 00:12 Temperature 97.6 F Pulse Rate 92 H 76 Respiratory Rate 18 20 Blood Pressure 107/70 Pulse Oximetry 98 99 09/17/18 04:00 09/17/18 04:06 09/17/18 07:57 Temperature 97.4 F L 97.4 F L Pulse Rate 90 64 55 L Respiratory Rate 20 27 H 14 Blood Pressure 101/60 100/63 Pulse Oximetry 97 100 97 09/17/18 08:23 09/17/18 12:05 09/17/18 12:10 Temperature Pulse Rate 99 H 87 Respiratory Rate 24 18 Blood Pressure Pulse Oximetry 97 98 09/17/18 13:14 09/17/18 16:01 09/17/18 16:05 Temperature 97.4 F L Pulse Rate 58 L 82 Respiratory Rate 16 25 H 18 Blood Pressure 117/64 Pulse Oximetry 98 Intake & Output 09/16/18 09/17/18 09/17/18 18:59 06:59 18:59 Intake Total 1512.5 / 1512.5 1220 / 1220 300 / 300 Output Total 180 / 180 100 / 100 Balance 1332.5 / 1332.5 1220 / 1220 200 / 200 Intake: IV 662.5 / 662.5 1220 / 1220 300 / 300 Protonix Inj 80 MG In NS Inj 200 / 200 100 / 100 100 / 100 100 ML @ 10 mls/hr IV.CONT Q10H BRIANNA Rx#:[id number] KCl Inj 40 MEQ In D5W Inj 1,000 1020 / 1020 ML @ 100 mls/hr IV.CONT . [id number] BRIANNA Rx#:[id number] Zosyn 4.5 GM Premix 4.5 gm In 200 / 200 100 / 100 200 / 200 100 ml @ 200 mls/hr IV.SIG Q6H BRIANNA Rx#:[id number] Vancomycin Inj 1,250 MG In NS 262.5 / 262.5 Inj 250 ML @ 250 mls/hr IV.SIG Q24H BRIANNA Rx#:[id number] Oral 850 / 850 Output: Urine 100 / 100 Stool 50 / 50 Gastric Drainage 100 / 100 Left Nare 100 / 100 Wound Drainage 30 / 30 Left Lower Anterior Abdomen 30 / 30 Other: # Voids 5 1 # Incontinent Voids 3 Date of Last Bowel Movement 09/16/18 09/16/18 09/17/18 # Bowel Movements 1 1 1 - Constitutional no acute distress - Routine HEENT Exam Head: Present: normocephalic Eye: Present: EOMI, PERRL ENT: Present: mucous membranes moist - Routine Neck Exam Present: trachea midline. Absent: tracheal deviation - Routine Respiratory Exam Absent: accessory muscle use - Routine Cardiovascular Exam Present: RRR - Routine Abdominal Exam Present: soft, normoactive bowel sounds - Routine Extremities Exam Present: edema Comments: lower extremity edema. - Routine Neurological Exam Present: alert - Routine Psychiatric Exam Present: normal affect - Urinary Catheter Management Indwelling Temp Sensing Catheter Cath placed during this visit: yes, but has since been removed by the nurse Reason for continuing: Decision to DC catheter Insertion date: 08/25/18 Insertion time: 14:20 Removal date: 08/29/18 Removal time: 12:30 Indwelling Urethral Catheter Cath placed during this visit: yes Urethral indwelling: No Reason for continuing: Hourly intake/output Insertion date: 09/06/18 Insertion time: 12:00 <Stveen Limon - Last Filed: 09/17/18 16:44> Vital signs: Vital Signs 09/17/18 12:05 09/17/18 12:10 09/17/18 13:14 Temperature 97.4 F L Pulse Rate 87 58 L Respiratory Rate 18 16 Blood Pressure 117/64 Pulse Oximetry 98 98 09/17/18 15:30 09/17/18 16:01 09/17/18 16:05 Temperature 97.6 F Pulse Rate 100 H 82 Respiratory Rate 20 25 H 18 Blood Pressure 120/67 Pulse Oximetry 93 L 09/17/18 16:20 09/17/18 16:24 09/17/18 20:00 Temperature 98.2 F Pulse Rate 103 H 95 H Respiratory Rate 20 Blood Pressure 136/69 Pulse Oximetry 93 L 97 09/17/18 22:08 09/18/18 00:00 09/18/18 04:00 Temperature 97.7 F 98.0 F Pulse Rate 83 89 Respiratory Rate 16 18 60 H Blood Pressure 110/66 125/78 Pulse Oximetry 97 98 97 09/18/18 04:14 09/18/18 08:00 09/18/18 08:45 Temperature 97.4 F L Pulse Rate 54 L 113 H 103 H Respiratory Rate 30 H 20 18 Blood Pressure 141/83 H Pulse Oximetry 94 L 97 Intake & Output 09/17/18 09/18/18 09/18/18 18:59 06:59 18:59 Intake Total 1532.5 / 1532.5 1120 / 1120 Output Total 325 / 325 Balance 1207.5 / 1207.5 1120 / 1120 Weight 112.3 kg Intake: IV 1532.5 / 1532.5 1120 / 1120 Protonix Inj 80 MG In NS Inj 100 / 100 100 / 100 100 ML @ 10 mls/hr IV.CONT Q10H BRIANNA Rx#:[id number] KCl Inj 40 MEQ In D5W Inj 1,000 970 / 970 1020 / 1020 ML @ 100 mls/hr IV.CONT . [id number] BRIANNA Rx#:[id number] Zosyn 4.5 GM Premix 4.5 gm In 200 / 200 100 ml @ 200 mls/hr IV.SIG Q6H BRIANNA Rx#:[id number] Vancomycin Inj 1,250 MG In NS 262.5 / 262.5 Inj 250 ML @ 250 mls/hr IV.SIG Q24H BRIANNA Rx#:[id number] Output: Urine 325 / 325 Other: # Voids 1 5 Date of Last Bowel Movement 09/17/18 09/17/18 # Bowel Movements 1 1 - Urinary Catheter Management Indwelling Temp Sensing Catheter Cath placed during this visit: no Indwelling Urethral Catheter Cath placed during this visit: no <Wang Hunt - Last Filed: 09/18/18 09:24> Assessment and Plan - Assessment (1) Hypernatremia Code(s): E87.0 - Hyperosmolality and hypernatremia Status: Acute Plan: Hypernatremia has improved. Fluid intake was encouraged. (2) Leukocytosis Code(s): D72.829 - Elevated white blood cell count, unspecified Status: Acute Qualifiers: Leukocytosis type: unspecified Qualified Code(s): D72.829 - Elevated white blood cell count, unspecified Plan: Has been diagnosed with pneumonia. ID following. (3) Pneumonia Code(s): J18.9 - Pneumonia, unspecified organism Status: Acute Qualifiers: Pneumonia type: due to unspecified organism Laterality: bilateral Lung location: unspecified part of lung Qualified Code(s): J18.9 - Pneumonia, unspecified organism Plan: Continue antibiotics, ID following. (4) Hypokalemia Code(s): E87.6 - Hypokalemia Status: Acute Plan: Replace as needed. has improved. (5) Volvulus Code(s): K56.2 - Volvulus Status: Acute Plan: Volvulus with cecal perforation. s/p surgery. <Steven Limon - Last Filed: 09/17/18 16:44> - Assessment (1) Hypernatremia Code(s): E87.0 - Hyperosmolality and hypernatremia Status: Acute (2) Leukocytosis Code(s): D72.829 - Elevated white blood cell count, unspecified Status: Acute Qualifiers: Leukocytosis type: unspecified Qualified Code(s): D72.829 - Elevated white blood cell count, unspecified (3) Pneumonia Code(s): J18.9 - Pneumonia, unspecified organism Status: Acute Qualifiers: Pneumonia type: due to unspecified organism Laterality: bilateral Lung location: unspecified part of lung Qualified Code(s): J18.9 - Pneumonia, unspecified organism (4) Hypokalemia Code(s): E87.6 - Hypokalemia Status: Acute (5) Volvulus Code(s): K56.2 - Volvulus Status: Acute - Attending Attestation patient was seen and examined. Agree with above assessment and plan. We will sign off at this time. <Wang Hunt - Last Filed: 09/18/18 09:24>
--- NOTE | 2018-09-17 16:33 | P.DIET ---
Nutritional Evaluation Type of nutrition evaluation: follow-up Nutrition consult regarding: Tube Feeding (TFing d/c'ed) Subjective Subjective Comments: Eating ~75% Objective - Diagnosis Sepsis, Pneumonia - Objective % IBW: 160 (IBW = 148#) Body Weight Used for Calculations: IBW (67.3 kg) Energy Needs - Lower Range (kCal/kg): 25 Energy Needs - Upper Range (kCal/kg): 30 Lower Limit kCal/kg (kCals): 1,682 Upper Limit kCal/kg (kCals): 2,019 Lower Limit Protein Factor (Grams per Kg): 1.0 Upper Limit Protein Factor (Grams per Kg): 1.5 Lower Protein Needs (Protein): 67 Upper Protein Needs (Protein): 101 Dietitian Reviewed in Medical Record: Current diet, Curent medications, Intake & Output, Labs, Medical history Diet Order: pureed, nectar thickened liquids, cardiac Speech Therapy Recommendations: Yes (mechanical soft, nectar thickened liquids ( 09/10)) Assessment Assessment: Pt s/p exp lap and R hemicolectomy on 09/06. Diet has been advanced and the pt is tolerating it and eating >50%. BMI = 36.7. Labs, wts and clinical course reviewed. Recommendations: Continue current POC Consult RD if needed.
--- NOTE | 2018-09-17 16:39 | P.PNID ---
Subjective Remarks: Notes reviewed. Patient feels okay. Has been receiving pureed diet. reports that she is giving him a lot of cranberry juice. No nausea. No vomiting. Denies shortness of breath Afebrile. DAVID drain removed. White count is normal. plans on arranging for transportation back up protem. 83-year-old white male was admitted to the hospital on 08/25/2018. Patient presented with shortness of breath. Chest x-ray showed bilateral infiltrates and white blood cell count was elevated. Had undergone surgery for perforated viscus, R hemicolectomy, primary anastomosis Mycoplasma IgG is positive. Mycoplasma IgM is negative. Chlamydia IgG positive. Legionella and strep antigen were negative. 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 History of lithotripsy History of arthroplasty of the knee History of trigeminal neuralgia. Allergies/Adverse Reactions: Allergies amiodarone Allergy (Intermediate, Verified 11/15/17 10:35) BLACK LUNGS atorvastatin [From Lipitor] Adverse Reaction (Unknown, Verified 09/05/18 15:05) Joint Pain fluvastatin [From Lescol] Adverse Reaction (Unknown, Verified 09/05/18 15:05) UNKNOWN Sulfa (Sulfonamide Antibiotics) Adverse Reaction (Verified 09/05/18 15:05) Abdominal Pain Objective Vital Signs 09/16/18 17:00 09/16/18 20:00 09/16/18 21:13 Temperature 97.6 F Pulse Rate 98 H 92 H 92 H Respiratory Rate 25 H 20 18 Blood Pressure 110/60 132/62 Pulse Oximetry 89 L 99 09/17/18 00:00 09/17/18 00:12 09/17/18 04:00 Temperature 97.6 F 97.4 F L Pulse Rate 76 90 Respiratory Rate 20 20 Blood Pressure 107/70 101/60 Pulse Oximetry 98 99 97 09/17/18 04:06 09/17/18 07:57 09/17/18 08:23 Temperature 97.4 F L Pulse Rate 64 55 L 99 H Respiratory Rate 27 H 14 24 Blood Pressure 100/63 Pulse Oximetry 100 97 97 09/17/18 12:05 09/17/18 12:10 09/17/18 13:14 Temperature 97.4 F L Pulse Rate 87 58 L Respiratory Rate 18 16 Blood Pressure 117/64 Pulse Oximetry 98 98 09/17/18 15:30 09/17/18 16:01 09/17/18 16:05 Temperature 97.6 F Pulse Rate 100 H 82 Respiratory Rate 20 25 H 18 Blood Pressure 120/67 Pulse Oximetry 93 L 09/17/18 16:24 Temperature Pulse Rate Respiratory Rate Blood Pressure Pulse Oximetry 93 L Intake & Output 09/16/18 09/17/18 09/17/18 18:59 06:59 18:59 Intake Total 1512.5 / 1512.5 1220 / 1220 1270 / 1270 Output Total 180 / 180 100 / 100 Balance 1332.5 / 1332.5 1220 / 1220 1170 / 1170 Intake: IV 662.5 / 662.5 1220 / 1220 1270 / 1270 Protonix Inj 80 MG In NS Inj 200 / 200 100 / 100 100 / 100 100 ML @ 10 mls/hr IV.CONT Q10H [facility] Rx#:[id number] KCl Inj 40 MEQ In D5W Inj 1,000 1020 / 1020 970 / 970 ML @ 100 mls/hr IV.CONT . [id number] [facility] Rx#:[id number] Zosyn 4.5 GM Premix 4.5 gm In 200 / 200 100 / 100 200 / 200 100 ml @ 200 mls/hr IV.SIG Q6H [facility] Rx#:[id number] Vancomycin Inj 1,250 MG In NS 262.5 / 262.5 Inj 250 ML @ 250 mls/hr IV.SIG Q24H [facility] Rx#:[id number] Oral 850 / 850 Output: Urine 100 / 100 Stool 50 / 50 Gastric Drainage 100 / 100 Left Nare 100 / 100 Wound Drainage 30 / 30 Left Lower Anterior Abdomen 30 / 30 Other: # Voids 5 1 # Incontinent Voids 3 Date of Last Bowel Movement 09/16/18 09/16/18 09/17/18 # Bowel Movements 1 1 1 Lab - Hematology Results 09/16/18 09/17/18 05:16 07:36 WBC 10.8 9.7 RBC 2.87 L 2.64 L Hgb 9.3 L 8.5 L Hct 27.5 L 26.1 L MCV 95.9 98.7 MCH 32.4 32.2 MCHC 33.7 32.6 RDW 16.2 17.2 Plt Count 130 L 126 L MPV 8.8 8.6 Lab - Chemistry Results 09/15/18 09/16/18 09/17/18 18:53 05:16 11:39 Sodium 148 H 150 H 147 H Potassium 3.0 L 3.6 3.9 Chloride 110 H 113 H 111 H Carbon Dioxide 32.7 H 31.7 31.1 Anion Gap 5 5 5 BUN 26 H 24 H 21 H Creatinine 1.18 1.13 1.14 Estimated GFR 59 L 62 L 61 L Random Glucose 154 H 137 H 148 H Calcium 8.5 8.7 8.0 L Magnesium 2.1 1.9 Total Bilirubin 0.6 0.5 0.5 AST 20 21 22 ALT 26 25 27 Alkaline Phosphatase 62 62 73 Total Protein 4.6 L 4.8 L 4.7 L Albumin 1.5 L 1.5 L 1.5 L Imaging: ITS Impressions Abdomen/Bladder Ultrasound 08/25/18 00:00 CONCLUSION: 1. No evidence of hydronephrosis. 2. Bilateral renal cysts, mostly simple, with one cyst demonstrating homogeneous low level echoes, located in the midpole the left kidney and measuring 4 cm. Venous Doppler Study 08/25/18 00:00 CONCLUSION: 1. The study is negative for bilateral lower extremity deep venous thrombosis. Chest CT 09/05/18 00:00 CONCLUSION: 1. 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 2. Right lower lobe cavitary mass. 3. Probably benign left adrenal lesion Head CT 09/05/18 00:00 CONCLUSION: 1. No acute intracranial abnormalities. . Abdomen/Pelvis CT 09/07/18 00:00 CONCLUSION: 1. Status post recent abdominal surgery with free air throughout the abdomen. 2. Mild air-filled loops of small bowel suggestive of a postoperative ileus. 3. Otherwise no other significant changes are seen compared to the prior exam. Chest X-Ray 09/11/18 00:00 CONCLUSION: Slight improvement in the bilateral infiltrates. Abdomen X-Ray 09/16/18 00:00 CONCLUSION: Distended air-filled small bowel and colon. Decrease in severity of small bowel distention. Physical Exam: PHYSICAL EXAMINATION: GENERAL: Patient is awake and alert. NAD HEENT: No icterus. Moist mucosa. Dry crusted lesions at the upper and lower lip. NECK: Supple without adenopathy. LUNGS: Slight rhonchi. Otherwise breath sounds are clear. HEART: Irregular S1, S2. No murmur audible. ABDOMEN: Obese, soft. Incision dry, no redness. EXTREMITIES: No clubbing, cyanosis, 1+ nonpitting edema at the feet. SKIN: No rash. NEUROLOGIC: Nonfocal. PSYCHIATRIC: Calm and cooperative. Assessment and Plan - Plan IMPRESSION: Perforated viscus. Status post right hemicolectomy. Pneumonia. Probable community-acquired. Possible cause of blood culture positive with Haemophilus. Cavitary nodule noted in the right lower lung. ? Etiology. 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 Chest x-ray has diffuse bilateral infiltrates. Altered mental status. Improved. Leukocytosis. Improved. Herpetic lip ulcerations dried and crusted. Clinically stable. RECOMMENDATIONS: Stop Zosyn. Stop vancomycin. Stop Flagyl. Stop fluconazole Continue topical acyclovir for the herpetic lesions for a few more days. Discussed with RN. Spoke with . Patient is stable and cleared for discharge from ID standpoint without antibiotics.
--- NOTE | 2018-09-17 18:43 | P.PN ---
Subjective Interval history: Has some nausea. NG still in. No SOB at rest. On o2 3 L. Still weak in legs. Physical Exam Vital signs: Vital Signs 09/16/18 20:00 09/16/18 21:13 09/17/18 00:00 Temperature 97.6 F 97.6 F Pulse Rate 92 H 92 H 76 Respiratory Rate 20 18 20 Blood Pressure 132/62 107/70 Pulse Oximetry 99 98 09/17/18 00:12 09/17/18 04:00 09/17/18 04:06 Temperature 97.4 F L Pulse Rate 90 64 Respiratory Rate 20 27 H Blood Pressure 101/60 Pulse Oximetry 99 97 100 09/17/18 07:57 09/17/18 08:23 09/17/18 12:05 Temperature 97.4 F L Pulse Rate 55 L 99 H Respiratory Rate 14 24 18 Blood Pressure 100/63 Pulse Oximetry 97 97 98 09/17/18 12:10 09/17/18 13:14 09/17/18 15:30 Temperature 97.4 F L 97.6 F Pulse Rate 87 58 L 100 H Respiratory Rate 16 20 Blood Pressure 117/64 120/67 Pulse Oximetry 98 93 L 09/17/18 16:01 09/17/18 16:05 09/17/18 16:20 Temperature Pulse Rate 82 103 H Respiratory Rate 25 H 18 Blood Pressure Pulse Oximetry 09/17/18 16:24 Temperature Pulse Rate Respiratory Rate Blood Pressure Pulse Oximetry 93 L Intake & Output 09/16/18 09/17/18 09/17/18 18:59 06:59 18:59 Intake Total 1512.5 / 1512.5 1220 / 1220 1532.5 / 1532.5 Output Total 180 / 180 100 / 100 Balance 1332.5 / 1332.5 1220 / 1220 1432.5 / 1432.5 Intake: IV 662.5 / 662.5 1220 / 1220 1532.5 / 1532.5 Protonix Inj 80 MG In NS Inj 200 / 200 100 / 100 100 / 100 100 ML @ 10 mls/hr IV.CONT Q10H [facility] Rx#:[id number] KCl Inj 40 MEQ In D5W Inj 1,000 1020 / 1020 970 / 970 ML @ 100 mls/hr IV.CONT . [id number] [facility] Rx#:[id number] Zosyn 4.5 GM Premix 4.5 gm In 200 / 200 100 / 100 200 / 200 100 ml @ 200 mls/hr IV.SIG Q6H [facility] Rx#:[id number] Vancomycin Inj 1,250 MG In NS 262.5 / 262.5 262.5 / 262.5 Inj 250 ML @ 250 mls/hr IV.SIG Q24H [facility] Rx#:[id number] Oral 850 / 850 Output: Urine 100 / 100 Stool 50 / 50 Gastric Drainage 100 / 100 Left Nare 100 / 100 Wound Drainage 30 / 30 Left Lower Anterior Abdomen 30 / Other: # Voids 5 1 # Incontinent Voids 3 Date of Last Bowel Movement 09/16/18 09/16/18 09/17/18 # Bowel Movements 1 1 1 Narrative: GENERAL: Well-developed, well-nourished, obese male in no apparent distress SKIN: Warm and dry. multiple crusting lesions on lips and chin HEAD: Atraumatic. Normocephalic. EYES: Pupils equal and round. No scleral icterus. No injection or drainage. ENT: No nasal bleeding or discharge. Mucous membranes pink and moist. NECK: Trachea midline. No JVD. CARDIOVASCULAR: Regular rate and rhythm. RESPIRATORY: No accessory muscle use. Few basal crackles . Breath sounds equal bilaterally. GASTROINTESTINAL: Abdomen obese, soft, non-tender, nondistended. Mid abdominal incision with misha intact, healing well, left lower quadrant drain with minimal drainage MUSCULOSKELETAL: Extremities without clubbing, cyanosis. Bilateral lower extremity trace edema. No obvious deformities. NEUROLOGICAL: Awake and alert. No obvious cranial nerve deficits. Motor : weak in legs . Normal speech. PSYCHIATRIC: Appropriate mood and affect and insight and judgment normal. - Urinary Catheter Management Indwelling Temp Sensing Catheter Cath placed during this visit: yes, but has since been removed by the nurse Reason for continuing: Decision to DC catheter Insertion date: 08/25/18 Insertion time: 14:20 Removal date: 08/29/18 Removal time: 12:30 Indwelling Urethral Catheter Cath placed during this visit: yes Urethral indwelling: No Reason for continuing: Hourly intake/output Insertion date: 09/06/18 Insertion time: 12:00 Results - Labs CBC & Chem 7: 09/17/18 07:36 09/17/18 11:39 Laboratory Results - last 24 hr 09/17/18 09/17/18 07:36 11:39 WBC 9.7 RBC 2.64 L Hgb 8.5 L Hct 26.1 L MCV 98.7 MCH 32.2 MCHC 32.6 RDW 17.2 Plt Count 126 L MPV 8.6 Sodium 147 H Potassium 3.9 Chloride 111 H Carbon Dioxide 31.1 Anion Gap 5 BUN 21 H Creatinine 1.14 Estimated GFR 61 L Random Glucose 148 H Calcium 8.0 L Magnesium 1.9 Total Bilirubin 0.5 AST 22 ALT 27 Alkaline Phosphatase 73 Total Protein 4.7 L Albumin 1.5 L Vancomycin Trough 23.2 H - Procedures Date of procedure: 08/25/18 Pre-op diagnosis: Acute respiratory failure Post-op diagnosis: same Procedure: DATE: 08/25/2018 PROCEDURE: Orotracheal intubation INDICATION: Pneumonia/respiratory failure acute DETAILS OF PROCEDURE The patient was placed in optimal position and preoxygenated with 100% FiO2 via bag valve mask. At the start oxygen saturation was 98 %. The patient was administered 20 mg etomidate IV and 50 mg rocuronium IV. I entered the oropharynx with a size 4 laryngoscope blade and obtained a grade 2 view of the airway. On single attempt a size 8.0 cuffed endotracheal tube was passed through the vocal cords. Correct tube location was confirmed with end tidal CO2 detector and by auscultating over bilateral lung joel. The endotracheal tube was secured with adhesive tape at a depth of 24 cm at the lips. The patient was connected to the ventilator. The patient tolerated the procedure well without any apparent complications. Oxygen saturations were maintained greater than 95% all times. STAT chest x-ray pending at time of dictation. Documented By: Ford Miguel MD 08/25/18 Date of procedure: 08/25/18 Pre-op diagnosis: Acute respiratory failure/poor IV access Post-op diagnosis: same Procedure: DATE: 08/25/2018 CENTRAL LINE PLACEMENT: Left internal jugular vein. Ultrasound-guided INDICATION: Central venous access CONSENT Informed consent for procedure was obtained from competent patient prior to intubation. DESCRIPTION OF THE PROCEDURE The patient was placed in supine position. The skin was cleansed with Chloraprep. Additional barrier precautions included large sterile drape, sterile gloves, sterile gown, face mask, and hat. 1 % lidocaine was used for local anesthesia. Under direct ultrasound guidance and on initial attempt, the vein was accessed with an introducer needle. The guide wire was advanced and the tract was dilated. Using Seldinger technique a 7 [place] 20 cm antimicrobial coated triple-lumen catheter was advanced to a depth of 20 centimeters. The guide wire was removed. All ports had good return of dark venous blood and flushed easily with saline. The central line was secured with 2.0 silk. A sterile dressing with antibiotic disc was applied. StatLock did not adhere to skin ESTIMATED BLOOD LOSS: Minimal COMPLICATIONS: No apparent complications. STAT chest x-ray pending at time of dictation Documented By: Ford Miguel MD Date of procedure: 08/25/18 Pre-op diagnosis: Hemodynamic instability Post-op diagnosis: same Procedure: DATE: 08/25/2018 PROCEDURE: Right femoral arterial catheter placement INDICATION: Hemodynamic access DETAILS OF PROCEDURE The patient was placed in supine position. The skin was cleansed with Chloraprep. Additional barrier precautions included large sterile drape, sterile gloves, sterile gown, face mask, and hat. 1% lidocaine was used for local anesthesia. Under direct ultrasound guidance and on the initial attempt, the artery was accessed with an introducer needle. The guide wire was advanced. Using Seldinger technique 20 gauge arterial catheter was placed. The guide wire was removed. The catheter was connected to a transducer line and flushed with saline. The video monitor displayed normal arterial wave forms. The catheter was secured with 2-0 silk. A sterile dressing with antibiotic disc was applied. ESTIMATED BLOOD LOSS: minimal COMPLICATIONS: None Documented By: Ford Miguel MD DATE OF OPERATION: 09/06/2018 PREOPERATIVE DIAGNOSIS: Perforation of viscus. POSTOPERATIVE DIAGNOSIS: Perforation of viscus, microperforation of cecum with cecal volvulus. PROCEDURE PERFORMED: 1. Diagnostic laparoscopy. 2. Open exploratory laparotomy. 3. Right hemicolectomy. 4. Primary anastomosis. 5. TANG placement. 6. Washout. SURGEON: Lul Richards MD ANY [employer] SALES DELIVERER: Theresa. ANESTHESIA: GETA. IV FLUIDS: See anesthesia sheet. ESTIMATED BLOOD LOSS: 100 mL. DRAINS: A 19-Comoran Justin drain. COMPLICATIONS: None. WOUND CLASSIFICATION: Contaminated. FINDINGS: Serous intraperitoneal fluid, massive free air, microperforation of cecum with cecal volvulus. SPECIMENS: Right colon. HISTORY OF PRESENT ILLNESS: The patient is an 83-year-old male who presented with multiple medical issues, lung dysfunction and development of a perforation of viscus. The patient planned for emergency operative intervention. DETAILS OF PROCEDURE: The patient was taken to the operative suite, placed in a supine position. She was prepped and draped in the usual sterile fashion after induction of general endotracheal anesthesia. Local anesthetic was injected. Stab doug incision was made. Abdomen is entered with a 5 mm port. Three other ports were placed, including 1 right upper quadrant, 1 right lower quadrant and a left upper quadrant port, 5 mm. Exploration had begun and there was noted to be some serosanguineous fluid throughout the abdomen. This was not overly purulent or did not appear to be significantly succuss. The suction irrigation was done. The examination of the stomach noted no abnormality and noted to be viable and healthy. The small bowel was run from ligament of Treitz to the terminal ileum without evidence of abnormality. The colon was then examined. There was noted to be a volvulus of cecum with a small microperforation and a small necrotic area. At this point, decision was made for an open exploratory laparotomy. The midline was extended with a 15 blade. Further dissection done with electro Bovie electrocautery. Bookwalter retractor was placed. Glen wound protector was also placed. Self-retaining retractors were placed for abdominal exposure. The white line of Toldt was mobilized to mobilize for the cecum, ileocecal valve and terminal ileum. Proximal to the ileocecal valve a 5 cm, a point was transected with a blue DB stapler. Harmonic was used to transect the base of the mesentery and for hemostasis. Proximally, the colon was mobilized. The hepatic flexure was further mobilized as well and the colon was transected proximal to the area of torsion and perforation. Further dissection and ligation of vessels was done with Harmonic scalpel. The colonic specimen, right hemicolon, was removed and placed in pathology. The abdomen was then thoroughly irrigated with warm normal saline. The patient was noted not to be on any pressor support and very stable at the time and had received no transfusion, other than the Kcentra for coagulant Eliquis reversal. The decision at this point was to do primary anastomosis. This was done in a stapled manner. The antimesenteric border and the tinea were placed opposing each other; 3-0 silk sutures were used for this. Small enterotomies were made in both opposing ends and an DB-75 blue load stapler was used to create a [id number] layer. The incisions were grasped with Allis clamps and then a TX 60 was used to transect and staple this closure. The staple line was oversewn with 3-0 silk Lembert sutures. Mesenteric defect was also closed. A crotch stitch was placed. A palpable patent ring was noted and completely viable. The abdomen was again washed out with a liter of warm saline. Omentum was placed back in its anatomical position. A 19-Comoran Justin drain was placed through a separate stab incision in the left lower quadrant and placed in the pelvis and along the right gutter. The abdomen was closed with looped PDS x 2 in a running fashion followed by misha and a TANG dressing was placed. 2-0 nylon used to secure 19-Comor[place] Justin drain in place. The patient tolerated the procedure well. There were no intraoperative complications. All lap and instrument counts were correct at the end of the procedure. The patient was taken to ICU in critical condition. Lul Richards MD (1) Perforated abdominal viscus (2) Cecal volvulus - Postoperative Diagnosis (1) Perforated abdominal viscus Procedure: dx lap,ex lap right hemicolectomy, primary anastomsis, tang Surgeon: Lul Richards MD Estimated blood loss (mL): 15 Pathology: none sent Operation and Findings: free air Documented By: Lul Richards MD 09/06/18 1158 Assessment and Plan - Assessment (1) COPD (chronic obstructive pulmonary disease) Code(s): J44.9 - Chronic obstructive pulmonary disease, unspecified Status: Acute (2) Severe sepsis Code(s): A41.9 - Sepsis, unspecified organism; R65.20 - Severe sepsis without septic shock Status: Acute (3) Pneumonia Code(s): J18.9 - Pneumonia, unspecified organism Status: Acute (4) Acute respiratory failure with hypoxia and hypercapnia Code(s): J96.01 - Acute respiratory failure with hypoxia; J96.02 - Acute respiratory failure with hypercapnia Status: Acute (5) Lactic acidosis Code(s): E87.2 - Acidosis Status: Acute (6) Atrial fibrillation with rapid ventricular response Code(s): I48.91 - Unspecified atrial fibrillation Status: Acute (7) Acute kidney injury Code(s): N17.9 - Acute kidney failure, unspecified Status: Acute (8) Chronic steroid use Status: Chronic (9) Hypertension Code(s): I10 - Essential (primary) hypertension Status: Chronic (10) Pulmonary cavitary lesion Code(s): J98.4 - Other disorders of lung Status: Acute (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 Cont on Home CPAP ,FIO2 30 % at HS 2. Cont O2 N/C 3 L daytime 3. Duoneb nebs tid PRN 4. Labs in am. 5. Continue Acyclovir PO. 6. EzPAP with Nebs qid. 7. Continue Eliquis 5 mg BID. 8. Cont Breo 200/25 Mcg, 1 puff daily 9. PT evaluation for activity (3) Pneumonia Qualifiers: Pneumonia type: due to unspecified organism Laterality: bilateral Lung location: unspecified part of lung Qualified Code(s): J18.9 - Pneumonia, unspecified organism (9) Hypertension Qualifiers: Hypertension type: essential hypertension Qualified Code(s): I10 - Essential (primary) hypertension
[2018-09-17 20:51] LABS: Hematocrit 26.4 % (39.0-51.0); Hemoglobin 8.8 gm/dL (13.0-17.0)
[2018-09-17] MEDS: Baclofen 10 MG Tablet NG/OG PRN (22:14)
[2018-09-18] MEDS: Potassium Chloride Inj 40 MEQ in Dextrose 5% in Water Inj 1,000 ML IV.CONT SCH ×4 (05:40→18:20)
[2018-09-18] MEDS: Pantoprazole Inj 80 MG in Sodium Chlor 0.9% Inj 100 ML IV.CONT SCH ×2 (05:40→11:57)
[2018-09-18] MEDS: Oral Hygiene Kit OROPHARYNG SCH ×4 (05:40→18:20)
[2018-09-18] MEDS: Artificial Tears Opth Drops 15 ML Bottle EACH EYE SCH ×2 (06:38→16:21)
--- NOTE | 2018-09-18 07:29 | P.PNGS ---
Subjective Patient reports: feels better, tolerating a regular diet, flatus, bowel movement Physical Exam Vital signs: Vital Signs 09/17/18 07:57 09/17/18 08:23 09/17/18 12:05 Temperature 97.4 F L Pulse Rate 55 L 99 H Respiratory Rate 14 24 18 Blood Pressure 100/63 Pulse Oximetry 97 97 98 09/17/18 12:10 09/17/18 13:14 09/17/18 15:30 Temperature 97.4 F L 97.6 F Pulse Rate 87 58 L 100 H Respiratory Rate 16 20 Blood Pressure 117/64 120/67 Pulse Oximetry 98 93 L 09/17/18 16:01 09/17/18 16:05 09/17/18 16:20 Temperature Pulse Rate 82 103 H Respiratory Rate 25 H 18 Blood Pressure Pulse Oximetry 09/17/18 16:24 09/17/18 20:00 09/17/18 22:08 Temperature 98.2 F Pulse Rate 95 H 83 Respiratory Rate 20 16 Blood Pressure 136/69 Pulse Oximetry 93 L 97 97 09/18/18 00:00 09/18/18 04:00 09/18/18 04:14 Temperature 97.7 F 98.0 F Pulse Rate 89 54 L Respiratory Rate 18 60 H 30 H Blood Pressure 110/66 125/78 Pulse Oximetry 98 97 94 L Intake & Output 09/17/18 09/18/18 09/18/18 18:59 06:59 18:59 Intake Total 1532.5 / 1532.5 1120 / 1120 Output Total 325 / 325 Balance 1207.5 / 1207.5 1120 / 1120 Weight 112.3 kg Intake: IV 1532.5 / 1532.5 1120 / 1120 Protonix Inj 80 MG In NS Inj 100 / 100 100 / 100 100 ML @ 10 mls/hr IV.CONT Q10H BRIANNA Rx#:[id number] KCl Inj 40 MEQ In D5W Inj 1,000 970 / 970 1020 / 1020 ML @ 100 mls/hr IV.CONT . [id number] BRIANNA Rx#:[id number] Zosyn 4.5 GM Premix 4.5 gm In 200 / 200 100 ml @ 200 mls/hr IV.SIG Q6H BRIANNA Rx#:[id number] Vancomycin Inj 1,250 MG In NS 262.5 / 262.5 Inj 250 ML @ 250 mls/hr IV.SIG Q24H BRIANNA Rx#:[id number] Output: Urine 325 / 325 Other: # Voids 1 5 Date of Last Bowel Movement 09/17/18 09/17/18 # Bowel Movements 1 1 - Routine Respiratory Exam Present: CTA bilaterally - Routine Cardiovascular Exam Present: RRR - Routine Abdominal Exam Present: soft (incision c/d/i, ) - Urinary Catheter Management Indwelling Temp Sensing Catheter Cath placed during this visit: yes, but has since been removed by the nurse Reason for continuing: Decision to DC catheter Insertion date: 08/25/18 Insertion time: 14:20 Removal date: 08/29/18 Removal time: 12:30 Indwelling Urethral Catheter Cath placed during this visit: yes Urethral indwelling: No Reason for continuing: Hourly intake/output Insertion date: 09/06/18 Insertion time: 12:00 Results - Labs 09/17/18 20:40 09/17/18 11:39 Laboratory Results - last 24 hr 09/17/18 09/17/18 09/17/18 07:36 11:39 20:40 WBC 9.7 RBC 2.64 L Hgb 8.5 L 8.8 L Hct 26.1 L 26.4 L MCV 98.7 MCH 32.2 MCHC 32.6 RDW 17.2 Plt Count 126 L MPV 8.6 Sodium 147 H Potassium 3.9 Chloride 111 H Carbon Dioxide 31.1 Anion Gap 5 BUN 21 H Creatinine 1.14 Estimated GFR 61 L Random Glucose 148 H Calcium 8.0 L Magnesium 1.9 Total Bilirubin 0.5 AST 22 ALT 27 Alkaline Phosphatase 73 Total Protein 4.7 L Albumin 1.5 L Vancomycin Trough 23.2 H - Imaging Imaging: ITS Impressions Abdomen/Bladder Ultrasound 08/25/18 00:00 CONCLUSION: 1. No evidence of hydronephrosis. 2. Bilateral renal cysts, mostly simple, with one cyst demonstrating homogeneous low level echoes, located in the midpole the left kidney and measuring 4 cm. Venous Doppler Study 08/25/18 00:00 CONCLUSION: 1. The study is negative for bilateral lower extremity deep venous thrombosis. Chest CT 09/05/18 00:00 CONCLUSION: 1. 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 2. Right lower lobe cavitary mass. 3. Probably benign left adrenal lesion Head CT 09/05/18 00:00 CONCLUSION: 1. No acute intracranial abnormalities. . Abdomen/Pelvis CT 09/07/18 00:00 CONCLUSION: 1. Status post recent abdominal surgery with free air throughout the abdomen. 2. Mild air-filled loops of small bowel suggestive of a postoperative ileus. 3. Otherwise no other significant changes are seen compared to the prior exam. Chest X-Ray 09/11/18 00:00 CONCLUSION: Slight improvement in the bilateral infiltrates. Abdomen X-Ray 09/16/18 00:00 CONCLUSION: Distended air-filled small bowel and colon. Decrease in severity of small bowel distention. 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 PT to ambulate blood thinner pt appears stable for medievac transport from surgical stand point planning this week will remove misha prior to d/c
[2018-09-18 07:57] LABS: Baso # (Auto) 0.1 th/mm3 (0.0-0.2); Baso % (Auto) 0.7 % (0.0-2.0); Eos # (Auto) 0.6 th/mm3 (0.0-0.4); Eos % (Auto) 6.4 % (0.0-4.0); Hematocrit 27.5 % (39.0-51.0); Lymph # (Auto) 0.5 th/mm3 (1.0-4.8); Lymph % (Auto) 5.5 % (9.0-44.0); Mean Corpuscular HGB Conc 32.7 % (32.0-36.0); Mean Corpuscular Hemoglobin 32.2 pg (27.0-34.0); Mean Corpuscular Volume 98.7 fL (80.0-100.0); Mean Platelet Volume 8.7 fL (7.0-11.0); Mono # (Auto) 0.6 th/mm3 (0.0-0.9); Mono % (Auto) 6.5 % (0.0-8.0); Neut % (Auto) 80.9 % (16.0-70.0); Platelet Count 132 th/mm3 (150-450); Red Blood Count 2.78 mil/mm3 (4.50-5.90); Red Cell Distribution Width 17.4 % (11.6-17.2); White Blood Count 8.6 th/mm3 (4.0-11.0)
[2018-09-18 08:45] VITALS: RESP 18
[2018-09-18] MEDS: Senna/Docusate Sodium 8.6/50 MG Tablet PO SCH (08:56)
[2018-09-18] MEDS: Metoprolol Tartrate 25 MG Tablet PO SCH (08:56)
[2018-09-18] MEDS: Lactobacillus Acidophilus/L. Spores Tablet PO SCH (08:56)
--- NOTE | 2018-09-18 11:39 | P.PN ---
Subjective Interval history: he is feeling better. NG is out and Able to pass Gas. on O2 3 L. CXR stable with Bilateral infiltrates. Will go to [place] today. Physical Exam Vital signs: Vital Signs 09/17/18 12:05 09/17/18 12:10 09/17/18 13:14 Temperature 97.4 F L Pulse Rate 87 58 L Respiratory Rate 18 16 Blood Pressure 117/64 Pulse Oximetry 98 98 09/17/18 15:30 09/17/18 16:01 09/17/18 16:05 Temperature 97.6 F Pulse Rate 100 H 82 Respiratory Rate 20 25 H 18 Blood Pressure 120/67 Pulse Oximetry 93 L 09/17/18 16:20 09/17/18 16:24 09/17/18 20:00 Temperature 98.2 F Pulse Rate 103 H 95 H Respiratory Rate 20 Blood Pressure 136/69 Pulse Oximetry 93 L 97 09/17/18 22:08 09/18/18 00:00 09/18/18 04:00 Temperature 97.7 F 98.0 F Pulse Rate 83 89 Respiratory Rate 16 18 60 H Blood Pressure 110/66 125/78 Pulse Oximetry 97 98 97 09/18/18 04:14 09/18/18 08:00 09/18/18 08:45 Temperature 97.4 F L Pulse Rate 54 L 113 H 103 H Respiratory Rate 30 H 20 18 Blood Pressure 141/83 H Pulse Oximetry 94 L 97 Intake & Output 09/17/18 09/18/18 09/18/18 18:59 06:59 18:59 Intake Total 1532.5 / 1532.5 1120 / 1120 Output Total 325 / 325 Balance 1207.5 / 1207.5 1120 / 1120 Weight 112.3 kg Intake: IV 1532.5 / 1532.5 1120 / 1120 Protonix Inj 80 MG In NS Inj 100 / 100 100 / 100 100 ML @ 10 mls/hr IV.CONT Q10H BRIANNA Rx#:[id number] KCl Inj 40 MEQ In D5W Inj 1,000 970 / 970 1020 / 1020 ML @ 100 mls/hr IV.CONT . [id number] BRIANNA Rx#:[id number] Zosyn 4.5 GM Premix 4.5 gm In 200 / 200 100 ml @ 200 mls/hr IV.SIG Q6H BRIANNA Rx#:[id number] Vancomycin Inj 1,250 MG In NS 262.5 / 262.5 Inj 250 ML @ 250 mls/hr IV.SIG Q24H BRIANNA Rx#:[id number] Output: Urine 325 / 325 Other: # Voids 1 5 Date of Last Bowel Movement 09/17/18 09/17/18 # Bowel Movements 1 1 Narrative: GENERAL: Well-developed, well-nourished, obese male in no apparent distress SKIN: Warm and dry. multiple crusting lesions on lips and chin HEAD: Atraumatic. Normocephalic. EYES: Pupils react . No scleral icterus. No injection or drainage. ENT: No nasal bleeding or discharge. Mucous membranes pink and moist. NECK: Trachea midline. No JVD. CARDIOVASCULAR: Regular rate and rhythm. RESPIRATORY: No accessory muscle use. Few basal crackles . Breath sounds equal bilaterally. GASTROINTESTINAL: Abdomen obese, soft, non-tender, nondistended. Mid abdominal incision with misha intact, healing well, left lower quadrant drain with minimal drainage MUSCULOSKELETAL: Extremities without clubbing, cyanosis. Bilateral lower extremity trace edema. No obvious deformities. NEUROLOGICAL: Awake and alert. Motor : weak in legs . Normal speech. PSYCHIATRIC: Appropriate mood and affect and insight and judgment normal. - Urinary Catheter Management Indwelling Temp Sensing Catheter Cath placed during this visit: yes, but has since been removed by the nurse Reason for continuing: Decision to DC catheter Insertion date: 08/25/18 Insertion time: 14:20 Removal date: 08/29/18 Removal time: 12:30 Indwelling Urethral Catheter Cath placed during this visit: yes Urethral indwelling: No Reason for continuing: Hourly intake/output Insertion date: 09/06/18 Insertion time: 12:00 Results - Labs CBC & Chem 7: 09/18/18 07:34 09/18/18 07:34 Laboratory Results - last 24 hr 09/17/18 09/17/18 09/18/18 11:39 20:40 07:34 WBC RBC Hgb 8.8 L Hct 26.4 L MCV MCH MCHC RDW Plt Count MPV Neut % (Auto) Lymph % (Auto) Carlton % (Auto) Eos % (Auto) Baso % (Auto) Neut # (Auto) Lymph # (Auto) Carlton # (Auto) Eos # (Auto) Baso # (Auto) WBC Differential Differential Comment Sodium 147 H Potassium 3.9 Chloride 111 H Carbon Dioxide 31.1 Anion Gap 5 BUN 21 H Creatinine 1.14 0.99 Estimated GFR 61 L 72 L Random Glucose 148 H Calcium 8.0 L Magnesium 1.9 Total Bilirubin 0.5 AST 22 ALT 27 Alkaline Phosphatase 73 Total Protein 4.7 L Albumin 1.5 L Vancomycin Trough 23.2 H 09/18/18 07:34 WBC 8.6 RBC 2.78 L Hgb 9.0 L Hct 27.5 L MCV 98.7 MCH 32.2 MCHC 32.7 RDW 17.4 H Plt Count 132 L MPV 8.7 Neut % (Auto) 80.9 H Lymph % (Auto) 5.5 L Carlton % (Auto) 6.5 Eos % (Auto) 6.4 H Baso % (Auto) 0.7 Neut # (Auto) 7.0 Lymph # (Auto) 0.5 L Carlton # (Auto) 0.6 Eos # (Auto) 0.6 H Baso # (Auto) 0.1 WBC Differential . Differential Comment Auto diff final Sodium Potassium Chloride Carbon Dioxide Anion Gap BUN Creatinine Estimated GFR Random Glucose Calcium Magnesium Total Bilirubin AST ALT Alkaline Phosphatase Total Protein Albumin Vancomycin Trough - Procedures Date of procedure: 08/25/18 Pre-op diagnosis: Acute respiratory failure Post-op diagnosis: same Procedure: DATE: 08/25/2018 PROCEDURE: Orotracheal intubation INDICATION: Pneumonia/respiratory failure acute DETAILS OF PROCEDURE The patient was placed in optimal position and preoxygenated with 100% FiO2 via bag valve mask. At the start oxygen saturation was 98 %. The patient was administered 20 mg etomidate IV and 50 mg rocuronium IV. I entered the oropharynx with a size 4 laryngoscope blade and obtained a grade 2 view of the airway. On single attempt a size 8.0 cuffed endotracheal tube was passed through the vocal cords. Correct tube location was confirmed with end tidal CO2 detector and by auscultating over bilateral lung joel. The endotracheal tube was secured with adhesive tape at a depth of 24 cm at the lips. The patient was connected to the ventilator. The patient tolerated the procedure well without any apparent complications. Oxygen saturations were maintained greater than 95% all times. STAT chest x-ray pending at time of dictation. Documented By: Ford Miguel MD 08/25/18 Date of procedure: 08/25/18 Pre-op diagnosis: Acute respiratory failure/poor IV access Post-op diagnosis: same Procedure: DATE: 08/25/2018 CENTRAL LINE PLACEMENT: Left internal jugular vein. Ultrasound-guided INDICATION: Central venous access CONSENT Informed consent for procedure was obtained from competent patient prior to intubation. DESCRIPTION OF THE PROCEDURE The patient was placed in supine position. The skin was cleansed with Chloraprep. Additional barrier precautions included large sterile drape, sterile gloves, sterile gown, face mask, and hat. 1 % lidocaine was used for local anesthesia. Under direct ultrasound guidance and on initial attempt, the vein was accessed with an introducer needle. The guide wire was advanced and the tract was dilated. Using Seldinger technique a 7 Danish 20 cm antimicrobial coated triple-lumen catheter was advanced to a depth of 20 centimeters. The guide wire was removed. All ports had good return of dark venous blood and flushed easily with saline. The central line was secured with 2.0 silk. A sterile dressing with antibiotic disc was applied. StatLock did not adhere to skin ESTIMATED BLOOD LOSS: Minimal COMPLICATIONS: No apparent complications. STAT chest x-ray pending at time of dictation Documented By: Ford Miguel MD Date of procedure: 08/25/18 Pre-op diagnosis: Hemodynamic instability Post-op diagnosis: same Procedure: DATE: 08/25/2018 PROCEDURE: Right femoral arterial catheter placement INDICATION: Hemodynamic access DETAILS OF PROCEDURE The patient was placed in supine position. The skin was cleansed with Chloraprep. Additional barrier precautions included large sterile drape, sterile gloves, sterile gown, face mask, and hat. 1% lidocaine was used for local anesthesia. Under direct ultrasound guidance and on the initial attempt, the artery was accessed with an introducer needle. The guide wire was advanced. Using Seldinger technique 20 gauge arterial catheter was placed. The guide wire was removed. The catheter was connected to a transducer line and flushed with saline. The video monitor displayed normal arterial wave forms. The catheter was secured with 2-0 silk. A sterile dressing with antibiotic disc was applied. ESTIMATED BLOOD LOSS: minimal COMPLICATIONS: None Documented By: Ford Miguel MD DATE OF OPERATION: 09/06/2018 PREOPERATIVE DIAGNOSIS: Perforation of viscus. POSTOPERATIVE DIAGNOSIS: Perforation of viscus, microperforation of cecum with cecal volvulus. PROCEDURE PERFORMED: 1. Diagnostic laparoscopy. 2. Open exploratory laparotomy. 3. Right hemicolectomy. 4. Primary anastomosis. 5. TANG placement. 6. Washout. SURGEON: Lul Richards MD [employer]OP SUPERVISOR: Theresa. ANESTHESIA: GETA. IV FLUIDS: See anesthesia sheet. ESTIMATED BLOOD LOSS: 100 mL. DRAINS: A 19-Danish Justin drain. COMPLICATIONS: None. WOUND CLASSIFICATION: Contaminated. FINDINGS: Serous intraperitoneal fluid, massive free air, microperforation of cecum with cecal volvulus. SPECIMENS: Right colon. HISTORY OF PRESENT ILLNESS: The patient is an 83-year-old male who presented with multiple medical issues, lung dysfunction and development of a perforation of viscus. The patient planned for emergency operative intervention. DETAILS OF PROCEDURE: The patient was taken to the operative suite, placed in a supine position. She was prepped and draped in the usual sterile fashion after induction of general endotracheal anesthesia. Local anesthetic was injected. Stab doug incision was made. Abdomen is entered with a 5 mm port. Three other ports were placed, including 1 right upper quadrant, 1 right lower quadrant and a left upper quadrant port, 5 mm. Exploration had begun and there was noted to be some serosanguineous fluid throughout the abdomen. This was not overly purulent or did not appear to be significantly succuss. The suction irrigation was done. The examination of the stomach noted no abnormality and noted to be viable and healthy. The small bowel was run from ligament of Treitz to the terminal ileum without evidence of abnormality. The colon was then examined. There was noted to be a volvulus of cecum with a small microperforation and a small necrotic area. At this point, decision was made for an open exploratory laparotomy. The midline was extended with a 15 blade. Further dissection done with electro Bovie electrocautery. Bookwalter retractor was placed. Glen wound protector was also placed. Self-retaining retractors were placed for abdominal exposure. The white line of Toldt was mobilized to mobilize for the cecum, ileocecal valve and terminal ileum. Proximal to the ileocecal valve a 5 cm, a point was transected with a blue DB stapler. Harmonic was used to transect the base of the mesentery and for hemostasis. Proximally, the colon was mobilized. The hepatic flexure was further mobilized as well and the colon was transected proximal to the area of torsion and perforation. Further dissection and ligation of vessels was done with Harmonic scalpel. The colonic specimen, right hemicolon, was removed and placed in pathology. The abdomen was then thoroughly irrigated with warm normal saline. The patient was noted not to be on any pressor support and very stable at the time and had received no transfusion, other than the Kcentra for coagulant Eliquis reversal. The decision at this point was to do primary anastomosis. This was done in a stapled manner. The antimesenteric border and the tinea were placed opposing each other; 3-0 silk sutures were used for this. Small enterotomies were made in both opposing ends and an DB-75 blue load stapler was used to create a [id number] layer. The incisions were grasped with Allis clamps and then a TX 60 was used to transect and staple this closure. The staple line was oversewn with 3-0 silk Lembert sutures. Mesenteric defect was also closed. A crotch stitch was placed. A palpable patent ring was noted and completely viable. The abdomen was again washed out with a liter of warm saline. Omentum was placed back in its anatomical position. A 19-Danish Justin drain was placed through a separate stab incision in the left lower quadrant and placed in the pelvis and along the right gutter. The abdomen was closed with looped PDS x 2 in a running fashion followed by misha and a TANG dressing was placed. 2-0 nylon used to secure 19-Danish Justin drain in place. The patient tolerated the procedure well. There were no intraoperative complications. All lap and instrument counts were correct at the end of the procedure. The patient was taken to ICU in critical condition. Lul Richards MD (1) Perforated abdominal viscus (2) Cecal volvulus - Postoperative Diagnosis (1) Perforated abdominal viscus Procedure: dx lap,ex lap right hemicolectomy, primary anastomsis, tang Surgeon: Lul Richards MD Estimated blood loss (mL): 15 Pathology: none sent Operation and Findings: free air Documented By: Lul Richards MD 09/06/18 1158 Assessment and Plan - Assessment (1) COPD (chronic obstructive pulmonary disease) Code(s): J44.9 - Chronic obstructive pulmonary disease, unspecified Status: Acute (2) Severe sepsis Code(s): A41.9 - Sepsis, unspecified organism; R65.20 - Severe sepsis without septic shock Status: Acute (3) Pneumonia Code(s): J18.9 - Pneumonia, unspecified organism Status: Acute (4) Acute respiratory failure with hypoxia and hypercapnia Code(s): J96.01 - Acute respiratory failure with hypoxia; J96.02 - Acute respiratory failure with hypercapnia Status: Acute (5) Lactic acidosis Code(s): E87.2 - Acidosis Status: Acute (6) Atrial fibrillation with rapid ventricular response Code(s): I48.91 - Unspecified atrial fibrillation Status: Acute (7) Acute kidney injury Code(s): N17.9 - Acute kidney failure, unspecified Status: Acute (8) Chronic steroid use Status: Chronic (9) Hypertension Code(s): I10 - Essential (primary) hypertension Status: Chronic (10) Pulmonary cavitary lesion Code(s): J98.4 - Other disorders of lung Status: Acute (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 Cont on Home CPAP ,FIO2 30 % at HS 2. Cont O2 N/C 3 L daytime 3. Duoneb nebs tid PRN 4. Transfer to rehab 5. Continue Acyclovir PO. 6. D/C EzPAP 7. Continue Eliquis 5 mg BID. 8. Cont Breo 200/25 Mcg, 1 puff daily 9. PT evaluation for activity (3) Pneumonia Qualifiers: Pneumonia type: due to unspecified organism Laterality: bilateral Lung location: unspecified part of lung Qualified Code(s): J18.9 - Pneumonia, unspecified organism (9) Hypertension Qualifiers: Hypertension type: essential hypertension Qualified Code(s): I10 - Essential (primary) hypertension
[2018-09-18 11:55] LABS: Calcium 8.9 mg/dL (8.5-10.1); Carbon Dioxide 28.2 meq/L (21.0-32.0); Potassium 4.3 meq/L (3.5-5.1)
[2018-09-18] MEDS: Chlorhexidine 0.12% Oral Kit 15 ML UDC OROPHARYNG SCH (11:55)
[2018-09-18 15:02] VITALS: BP 111/71; TEMP 97.2
[2018-09-18] MEDS ORDERED: Furosemide 20 MG Tablet PO ONE (15:15)
--- NOTE | 2018-09-18 15:47 | P.DS ---
Date of admission: 08/25/18 11:01 Primary care physician: UNKNOWN Attending physician on discharge: Willis Sheikh Anticipated date of discharge: 09/18/18 Brief History from admission: This is an 83-year-old male. Date of admission 08/25/2018. Past medical includes atrial fibrillation with history of cardioversion, chronic apixaban use, hypertension, hyperlipidemia, trigeminal neuralgia/hard of hearing : Bilateral hearing aids. For the past 4 days, patient been increasing short of breath increased malaise. Denies any sick contacts or recent travels. Unknown influenza status. Patient is to [facility] with worsening shortness of breath. Complains of pleuritic and musculoskeletal chest pain. Patient also has a prior history of tobacco abuse times 50 years quit 15 years ago. Patient called EMS for evaluation due to acute shortness of breath. Upon arrival, patient was noted to be in a rapid heart rate in the 150s. Patient was given acute bronchodilator therapy and started on a lidocaine drip for possible V. tach. Patient was transported to [facility] for further evaluation treatment. Upon arrival, patient was noted to be in A. fib with RVR. Chest x-ray revealed bilateral infiltrates right greater than left. Patient was placed on BiPAP therapy with some improvement. Patient received ceftriaxone and azithromycin. 3 L normal saline. Patient remained somewhat hypotensive. Patient a lactate of 5.1. Troponin 0 0.27. Patient was transported to [facility]. On arrival, patient increasingly short of breath. Required intubation with central line placement and arterial line placement. Patient update on day of discharge: Follow up for respiratory failure, Pneumonia, ileus s/p hemicolectomy, WESLEY, HTN and Afib with RVR and discharge planning to transfer to [facility] with accepting doctors. arranged for medical transport with nurse and EMT and also hospital acceptance. community services manager assisting. Patient seen and examined laying in bed, family at bedside. reported patient was on furosemide and was not given for furosemide here in the hospital. Home medication was furosemide 20 mg twice a day however patient states that he is taking 2 tablets once a day because it makes him go to the bathroom a lot at night. reported patient does not need to have to be on potassium when cut when verified. Patient denies any shortness of breath at this time, denies any abdominal pain, nausea, or vomiting. Patient denies any diarrhea or constipation. reports that he had 3 bowel movements yesterday and last night. Patient denies any headache or dizziness, denies any chest pain or shortness of breath, denies any fever or chills. DS: Diagnosis - Discharge Diagnosis (1) COPD (chronic obstructive pulmonary disease) Status: Acute (2) Severe sepsis Status: Acute (3) Pneumonia Status: Acute (4) Acute respiratory failure with hypoxia and hypercapnia Status: Acute (5) Lactic acidosis Status: Acute (6) Atrial fibrillation with rapid ventricular response Status: Acute (7) Acute kidney injury Status: Acute (8) Chronic steroid use Status: Chronic (9) Hypertension Status: Chronic (10) Pulmonary cavitary lesion Status: Acute (11) Status post colectomy Status: Acute (12) Atelectasis of both lungs Status: Acute DS: Summary Hospital Course: This is an 83-year-old male, with Past medical includes atrial fibrillation with history of cardioversion, chronic apixaban use, hypertension, hyperlipidemia, trigeminal neuralgia/hard of hearing: Bilateral hearing aids.admitted 08/25/2018 for increasing shortness of breath and malaise. Patient was admitted and treated for Atrial fibrillation currently rate controlled,,Elevated troponin, with History of essential hypertension, Hyperlipidemiaaand Lactic acidosis 2D Echo on 09/07/18: LVEF 55-60, Mild concentric left ventricular hypertrophy, right ventricle mildly dilated, right ventricular systolic function mildly decreased. Trace mitral valve, aortic valve , tricuspid valve regurgitation. Continue home dose of beta-tristian, and Eliquis, recently restarted due to coffee ground emesis which is resolved. Patient was also restarted on her home dose of Lasix due to persistent edema. Patient was also treated for Community acquired pneumonia, Acute respiratory failure secondary to community acquired pneumonia and Perforated viscus. 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 Blood cultures from 08/25 grew Haemophilus influenza sensitive to penicillins/ cephalosporins, s/p ceftriaxone. Repeat blood cultures sent on 08/27 negative. Sputum and urine cultures no growth to date. Flu and MRSA swabs negative, Legionella and pneumococcus negative. ID following for antibiotic management, S/ P IV Zosyn/vancomycin. p.o. fluconazole , completed antibiotic treatement. Continue on on O2 3L via NC, keep sat greater than 92%. Continue Albuterol/ ipratropium aerosols and albuterol aerosols every 2 hours as needed dyspnea. Continue home fluticasone/Vilanterol 200/25 1 inhalation daily. 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 was on NG and was discontinued. Stool for C. difficile Negative. Patient to continue on Protonix. Patient was cleared with general surgery for transfer [place] via [place] - Time Spent with Patient Total time spent providing and/or coordinating discharge services: Greater than 30 minutes - Quality: VTE Deep Vein Thrombosis/Pulmonary Embolism Present on Admission: No Exam Vital signs: Vital Signs 09/17/18 15:30 09/17/18 16:01 09/17/18 16:05 Temperature 97.6 F Pulse Rate 100 H 82 Respiratory Rate 20 25 H 18 Blood Pressure 120/67 Pulse Oximetry 93 L 09/17/18 16:20 09/17/18 16:24 09/17/18 20:00 Temperature 98.2 F Pulse Rate 103 H 95 H Respiratory Rate 20 Blood Pressure 136/69 Pulse Oximetry 93 L 97 09/17/18 22:08 09/18/18 00:00 09/18/18 04:00 Temperature 97.7 F 98.0 F Pulse Rate 83 89 Respiratory Rate 16 18 60 H Blood Pressure 110/66 125/78 Pulse Oximetry 97 98 97 09/18/18 04:14 09/18/18 08:00 09/18/18 08:45 Temperature 97.4 F L Pulse Rate 54 L 113 H 103 H Respiratory Rate 30 H 20 18 Blood Pressure 141/83 H Pulse Oximetry 94 L 97 09/18/18 12:55 Temperature 97.2 F L Pulse Rate 87 Respiratory Rate 18 Blood Pressure 111/71 Pulse Oximetry 96 Intake & Output 09/17/18 09/18/18 09/18/18 18:59 06:59 18:59 Intake Total 1532.5 / 1532.5 1120 / 1120 100 / 100 Output Total 325 / 325 Balance 1207.5 / 1207.5 1120 / 1120 100 / 100 Weight 112.3 kg Intake: IV 1532.5 / 1532.5 1120 / 1120 100 / 100 Protonix Inj 80 MG In NS Inj 100 / 100 100 / 100 100 / 100 100 ML @ 10 mls/hr IV.CONT Q10H BRIANNA Rx#:[id number] KCl Inj 40 MEQ In D5W Inj 1,000 970 / 970 1020 / 1020 ML @ 100 mls/hr IV.CONT . [id number] BRIANNA Rx#:[id number] Zosyn 4.5 GM Premix 4.5 gm In 200 / 200 100 ml @ 200 mls/hr IV.SIG Q6H BRIANNA Rx#:[id number] Vancomycin Inj 1,250 MG In NS 262.5 / 262.5 Inj 250 ML @ 250 mls/hr IV.SIG Q24H BRIANNA Rx#:[id number] Output: Urine 325 / 325 Other: # Voids 1 5 Date of Last Bowel Movement 09/17/18 09/17/18 09/18/18 # Bowel Movements 1 1 Narrative: GENERAL: Well-developed, well-nourished, obese male in no apparent distress SKIN: Warm and dry. multiple lesions on lips and chin HEAD: Atraumatic. Normocephalic. EYES: Pupils equal and round. No scleral icterus. No injection or drainage. ENT: No nasal bleeding or discharge. Mucous membranes pink and moist. NECK: Trachea midline. No JVD. CARDIOVASCULAR: Regular rate and rhythm. RESPIRATORY: No accessory muscle use. fine rhonchi and diminished to auscultation. Breath sounds equal bilaterally. On 3L O2 via NC GASTROINTESTINAL: Abdomen obese, soft, non-tender, nondistended. Mid abdominal incision with misha intact, healing well, left lower quadrant drain site dressed dry and intact MUSCULOSKELETAL: Extremities without clubbing, cyanosis. Left abdominal dependent edema, penile edema, bilateral lower extremity trace edema. No obvious deformities. NEUROLOGICAL: Awake and alert. No obvious cranial nerve deficits. Motor grossly within normal limits. Five out of 5 muscle strength in the arms and legs. Normal speech. PSYCHIATRIC: Appropriate mood and affect; insight and judgment normal. Results Procedures completed during hospitalization: Date of procedure: 08/25/18 Pre-op diagnosis: Acute respiratory failure Post-op diagnosis: same Procedure: DATE: 08/25/2018 PROCEDURE: Orotracheal intubation INDICATION: Pneumonia/respiratory failure acute DETAILS OF PROCEDURE The patient was placed in optimal position and preoxygenated with 100% FiO2 via bag valve mask. At the start oxygen saturation was 98 %. The patient was administered 20 mg etomidate IV and 50 mg rocuronium IV. I entered the oropharynx with a size 4 laryngoscope blade and obtained a grade 2 view of the airway. On single attempt a size 8.0 cuffed endotracheal tube was passed through the vocal cords. Correct tube location was confirmed with end tidal CO2 detector and by auscultating over bilateral lung joel. The endotracheal tube was secured with adhesive tape at a depth of 24 cm at the lips. The patient was connected to the ventilator. The patient tolerated the procedure well without any apparent complications. Oxygen saturations were maintained greater than 95% all times. STAT chest x-ray pending at time of dictation. Documented By: Ford Miguel MD 08/25/18 Date of procedure: 08/25/18 Pre-op diagnosis: Acute respiratory failure/poor IV access Post-op diagnosis: same Procedure: DATE: 08/25/2018 CENTRAL LINE PLACEMENT: Left internal jugular vein. Ultrasound-guided INDICATION: Central venous access CONSENT Informed consent for procedure was obtained from competent patient prior to intubation. DESCRIPTION OF THE PROCEDURE The patient was placed in supine position. The skin was cleansed with Chloraprep. Additional barrier precautions included large sterile drape, sterile gloves, sterile gown, face mask, and hat. 1 % lidocaine was used for local anesthesia. Under direct ultrasound guidance and on initial attempt, the vein was accessed with an introducer needle. The guide wire was advanced and the tract was dilated. Using Seldinger technique a 7 Thai 20 cm antimicrobial coated triple-lumen catheter was advanced to a depth of 20 centimeters. The guide wire was removed. All ports had good return of dark venous blood and flushed easily with saline. The central line was secured with 2.0 silk. A sterile dressing with antibiotic disc was applied. StatLock did not adhere to skin ESTIMATED BLOOD LOSS: Minimal COMPLICATIONS: No apparent complications. STAT chest x-ray pending at time of dictation Documented By: Ford Miguel MD Date of procedure: 08/25/18 Pre-op diagnosis: Hemodynamic instability Post-op diagnosis: same Procedure: DATE: 08/25/2018 PROCEDURE: Right femoral arterial catheter placement INDICATION: Hemodynamic access DETAILS OF PROCEDURE The patient was placed in supine position. The skin was cleansed with Chloraprep. Additional barrier precautions included large sterile drape, sterile gloves, sterile gown, face mask, and hat. 1% lidocaine was used for local anesthesia. Under direct ultrasound guidance and on the initial attempt, the artery was accessed with an introducer needle. The guide wire was advanced. Using Seldinger technique 20 gauge arterial catheter was placed. The guide wire was removed. The catheter was connected to a transducer line and flushed with saline. The video monitor displayed normal arterial wave forms. The catheter was secured with 2-0 silk. A sterile dressing with antibiotic disc was applied. ESTIMATED BLOOD LOSS: minimal COMPLICATIONS: None Documented By: Ford Miguel MD DATE OF OPERATION: 09/06/2018 PREOPERATIVE DIAGNOSIS: Perforation of viscus. POSTOPERATIVE DIAGNOSIS: Perforation of viscus, microperforation of cecum with cecal volvulus. PROCEDURE PERFORMED: 1. Diagnostic laparoscopy. 2. Open exploratory laparotomy. 3. Right hemicolectomy. 4. Primary anastomosis. 5. TANG placement. 6. Washout. SURGEON: Lul Richards MD RUBBER CUTTING MACHINE TENDER: Theresa. ANESTHESIA: GETA. IV FLUIDS: See anesthesia sheet. ESTIMATED BLOOD LOSS: 100 mL. DRAINS: A 19-Thai Justin drain. COMPLICATIONS: None. WOUND CLASSIFICATION: Contaminated. FINDINGS: Serous intraperitoneal fluid, massive free air, microperforation of cecum with cecal volvulus. SPECIMENS: Right colon. HISTORY OF PRESENT ILLNESS: The patient is an 83-year-old male who presented with multiple medical issues, lung dysfunction and development of a perforation of viscus. The patient planned for emergency operative intervention. DETAILS OF PROCEDURE: The patient was taken to the operative suite, placed in a supine position. She was prepped and draped in the usual sterile fashion after induction of general endotracheal anesthesia. Local anesthetic was injected. Stab doug incision was made. Abdomen is entered with a 5 mm port. Three other ports were placed, including 1 right upper quadrant, 1 right lower quadrant and a left upper quadrant port, 5 mm. Exploration had begun and there was noted to be some serosanguineous fluid throughout the abdomen. This was not overly purulent or did not appear to be significantly succuss. The suction irrigation was done. The examination of the stomach noted no abnormality and noted to be viable and healthy. The small bowel was run from ligament of Treitz to the terminal ileum without evidence of abnormality. The colon was then examined. There was noted to be a volvulus of cecum with a small microperforation and a small necrotic area. At this point, decision was made for an open exploratory laparotomy. The midline was extended with a 15 blade. Further dissection done with electro Bovie electrocautery. Bookwalter retractor was placed. Glen wound protector was also placed. Self-retaining retractors were placed for abdominal exposure. The white line of Toldt was mobilized to mobilize for the cecum, ileocecal valve and terminal ileum. Proximal to the ileocecal valve a 5 cm, a point was transected with a blue DB stapler. Harmonic was used to transect the base of the mesentery and for hemostasis. Proximally, the colon was mobilized. The hepatic flexure was further mobilized as well and the colon was transected proximal to the area of torsion and perforation. Further dissection and ligation of vessels was done with Harmonic scalpel. The colonic specimen, right hemicolon, was removed and placed in pathology. The abdomen was then thoroughly irrigated with warm normal saline. The patient was noted not to be on any pressor support and very stable at the time and had received no transfusion, other than the Kcentra for coagulant Eliquis reversal. The decision at this point was to do primary anastomosis. This was done in a stapled manner. The antimesenteric border and the tinea were placed opposing each other; 3-0 silk sutures were used for this. Small enterotomies were made in both opposing ends and an DB-75 blue load stapler was used to create a cnzguqg-[id number] layer. The incisions were grasped with Allis clamps and then a TX 60 was used to transect and staple this closure. The staple line was oversewn with 3-0 silk Lembert sutures. Mesenteric defect was also closed. A crotch stitch was placed. A palpable patent ring was noted and completely viable. The abdomen was again washed out with a liter of warm saline. Omentum was placed back in its anatomical position. A 19-Thai Justin drain was placed through a separate stab incision in the left lower quadrant and placed in the pelvis and along the right gutter. The abdomen was closed with looped PDS x 2 in a running fashion followed by misha and a TANG dressing was placed. 2-0 nylon used to secure 19-Thai Justin drain in place. The patient tolerated the procedure well. There were no intraoperative complications. All lap and instrument counts were correct at the end of the procedure. The patient was taken to ICU in critical condition. Lul Richards MD (1) Perforated abdominal viscus (2) Cecal volvulus - Postoperative Diagnosis (1) Perforated abdominal viscus Procedure: dx lap,ex lap right hemicolectomy, primary anastomsis, tang Surgeon: Lul Richards MD Estimated blood loss (mL): 15 Pathology: none sent Operation and Findings: free air Documented By: Lul Richards MD 09/06/18 1158 Completed studies during hospitalization: Pending at discharge 09/06/18 08:44 Surgical [PTH] Routine Labs on day of discharge: Labs from last 24 hours 09/18/18 09/18/18 09/18/18 10:52 07:34 07:34 WBC 8.6 RBC 2.78 L Hgb 9.0 L Hct 27.5 L MCV 98.7 MCH 32.2 MCHC 32.7 RDW 17.4 H Plt Count 132 L MPV 8.7 Neut % (Auto) 80.9 H Lymph % (Auto) 5.5 L Pendleton % (Auto) 6.5 Eos % (Auto) 6.4 H Baso % (Auto) 0.7 Neut # (Auto) 7.0 Lymph # (Auto) 0.5 L [place] # (Auto) 0.6 Eos # (Auto) 0.6 H Baso # (Auto) 0.1 WBC Differential . Differential Comment Auto diff final Sodium 144 Potassium 4.3 Chloride 108 H Carbon Dioxide 28.2 Anion Gap 8 BUN 18 Creatinine 1.10 0.99 Estimated GFR 64 L 72 L Random Glucose 126 H Calcium 8.9 D 09/17/18 20:40 WBC RBC Hgb 8.8 L Hct 26.4 L MCV MCH MCHC RDW Plt Count MPV Neut % (Auto) Lymph % (Auto) [place] % (Auto) Eos % (Auto) Baso % (Auto) Neut # (Auto) Lymph # (Auto) [place] # (Auto) Eos # (Auto) Baso # (Auto) WBC Differential Differential Comment Sodium Potassium Chloride Carbon Dioxide Anion Gap BUN Creatinine Estimated GFR Random Glucose Calcium - Impressions ITS Impressions Abdomen/Bladder Ultrasound 08/25/18 00:00 CONCLUSION: 1. No evidence of hydronephrosis. 2. Bilateral renal cysts, mostly simple, with one cyst demonstrating homogeneous low level echoes, located in the midpole the left kidney and measuring 4 cm. Venous Doppler Study 08/25/18 00:00 CONCLUSION: 1. The study is negative for bilateral lower extremity deep venous thrombosis. Chest CT 09/05/18 00:00 CONCLUSION: 1. 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 2. Right lower lobe cavitary mass. 3. Probably benign left adrenal lesion Head CT 09/05/18 00:00 CONCLUSION: 1. No acute intracranial abnormalities. . Abdomen/Pelvis CT 09/07/18 00:00 CONCLUSION: 1. Status post recent abdominal surgery with free air throughout the abdomen. 2. Mild air-filled loops of small bowel suggestive of a postoperative ileus. 3. Otherwise no other significant changes are seen compared to the prior exam. Chest X-Ray 09/11/18 00:00 CONCLUSION: Slight improvement in the bilateral infiltrates. Abdomen X-Ray 09/16/18 00:00 CONCLUSION: Distended air-filled small bowel and colon. Decrease in severity of small bowel distention. Discharge Plan - Discharge Disposition Patient Disposition: Disch To Another Hospital - Discharge Condition Condition: Fair - Discharge Order Discharge Orders: Discharge Order (Routine); Ordered 09/18/18 Ordered By: Antoinette Leon ED Use Only Admit Order (Routine); Ordered 08/25/18 Ordered By: Abbi Odell - Discharge Details Anticipated Discharge Date: 09/18/18 Discharge Comment: Transferred to [facility] via medical transport with nurse and EMT - Physicians Team Primary Care Provider: UNKNOWN, Attending Provider: Willis Sheikh Other Providers: Ed Alexander MD ; Cheryl Matute MD ; Misael Church MD ; Wang Hunt MD ; Lul Richards MD ; Shawn Matta MD ; [facility] ; Clement Carpenter MD
[2018-09-18] MEDS: predniSONE 5 MG Tablet PO SCH (16:20)
[2018-09-18 16:46] VITALS: PULSE 98
[2018-09-18 17:32] VITALS: O2SAT 97
[2018-09-19] MEDS ORDERED: Furosemide 20 MG Tablet PO SCH (09:00)
== END 2018-09-18 17:46 | disposition short-term general hospital (02) ==
LOC: PHED 09:38 → PHEDA 11:01 → N03 12:32 → N04 09-12 22:56 → N03 09-14 13:33 → N05 09-16 20:16
PROVIDERS: ADMIT Hospitalist; ATTEND Hospitalist
DX: D64.9 Anemia, unspecified; I27.20 Pulmonary hypertension, unspecified; J96.02 Acute respiratory failure with hypercapnia; B00.1 Herpesviral vesicular dermatitis; N28.1 Cyst of kidney, acquired; R65.20 Severe sepsis without septic shock; F05 Delirium due to known physiological condition; J18.8 Other pneumonia, unspecified organism; Z79.52 Long term (current) use of systemic steroids; E66.9 Obesity, unspecified; H91.93 Unspecified hearing loss, bilateral; E87.6 Hypokalemia; J98.4 Other disorders of lung; Z53.31 Laparoscopic surgical procedure converted to open procedure; J98.11 Atelectasis; E87.70 Fluid overload, unspecified; I25.10 Atherosclerotic heart disease of native coronary artery without angina pectoris; R73.9 Hyperglycemia, unspecified; I87.8 Other specified disorders of veins; Z79.01 Long term (current) use of anticoagulants; I10 Essential (primary) hypertension; Z96.659 Presence of unspecified artificial knee joint; E88.09 Other disorders of plasma-protein metabolism, not elsewhere classified; E87.2 Acidosis; I48.2 Chronic atrial fibrillation; I47.2 Ventricular tachycardia; E78.5 Hyperlipidemia, unspecified; E87.0 Hyperosmolality and hypernatremia; G93.40 Encephalopathy, unspecified; J84.10 Pulmonary fibrosis, unspecified; R91.1 Solitary pulmonary nodule; Z87.891 Personal history of nicotine dependence; E83.39 Other disorders of phosphorus metabolism; E87.1 Hypo-osmolality and hyponatremia; J44.0 Chronic obstructive pulmonary disease with (acute) lower respiratory infection; K56.2 Volvulus; A41.9 Sepsis, unspecified organism; R74.8 Abnormal levels of other serum enzymes; J96.01 Acute respiratory failure with hypoxia; Z68.38 Body mass index [BMI] 38.0-38.9, adult; K56.7 Ileus, unspecified; G50.0 Trigeminal neuralgia; N17.9 Acute kidney failure, unspecified